=== PATIENT | female | born 1950 | race Caucasian/White ===

== ENCOUNTER → 2017-11-10 06:09 | Outpatient (CLI) | payer MEDICARE, OTHER, SELFPAY ==
[2017-11-10 07:31] LABS: Absolute Lymphocyte Count 2.92 X10^3/ul (0.83-4.51); Absolute Neutrophil Count 4.1 X10^3/uL (2.0-7.7); Basophil# 0.03 X10^3/uL; Basophil% 0.4 % (0-1); Eosinophil# 0.29 X10^3/uL; Eosinophils% 3.6 % (0-5); Hemoglobin 12.9 g/dl (12.0-15.0); Lymphocyte # 2.92 X10^3/ul (4.0); Lymphocyte % 36.4 % (19-41); Mean Corp Hgb Conc 31.5 g/gl (32-36); Mean Corpuscular Hgb 27.4 pg (27.0-32.0); Mean Platelet Vol. 10.6 fl (6.2-12.0); Monocyte% 8.7 % (0-10); Neutrophil # 4.06 X10^3/uL (2.7-7.7); Neutrophil % 50.7 % (47-70); Platelet Count 236 K/mm3 (150-450); RBC Distribution Width CV 13.5 % (11.6-14.6); RBC Distribution Width SD 42.8 fl (35.1-43.9); Red Blood Count 4.71 M/mm3 (4.2-5.4)
[2017-11-10 07:40] LABS: POSITIVE COUNT NO; POSITIVE DIFFERENTIAL NO; POSITIVE MORPHOLOGY NO
[2017-11-10 08:02] LABS: Anion Gap 9 (5-15); BUN 16 mg/dL (7-18); BUN/Creat Ratio 21.4 RATIO (10-20); Calcium,Total 8.6 mg/dL (8.5-10.1); Chloride 104 mmol/L (98-107); Cholesterol 178 mg/dL (200); Creatinine, Serum 0.75 mg/dL (0.55-1.02); EST Glomerular Filtration Rate 82 mL/min (>60); Est Glom Filt Rate - Afr Amer 99 mL/min (>60); Ferritin 13 ng/mL (8-252); Glucose 131 mg/dL (74-106); High Density Lipoprotein 38 mg/dL; Iron 44 ug/dL (50-170); Iron Binding Capacity,Total 416 ug/dL (250-450); Sodium Level 139 mmol/L (136-145); Triglycerides 257 mg/dL; Very Low Density Lipoprotein 51 mg/dL (5-40)
[2017-11-10 08:06] LABS: Hemoglobin A1c 7.1 % (4.2-6.3)
[2017-11-11 09:48] LABS: Vitamin B12 458 pg/mL (211-911); Vitamin D,25 Hydroxy 16.8 ng/mL (29.95-100.01)
== END ==
PROVIDERS: Family Provider Internal Medicine; PCP Internal Medicine; Visit Provider Internal Medicine
DX: I10 Essential (primary) hypertension (principal); E61.1 Iron deficiency; E11.9 Type 2 diabetes mellitus without complications; K90.9 Intestinal malabsorption, unspecified
CPT/HCPCS: 36415; 80048; 80061; 82306; 82607; 82728; 83036; 83540; 83550; 85025

== ENCOUNTER 2018-01-23 10:02 | Emergency (ER) | payer MEDICARE, OTHER, SELFPAY ==
[2018-01-23 10:04] VITALS: BP 144/81; PULSE 80; RESP 20; TEMP 36.3; O2SAT 100; BMI 28.0
--- NOTE | 2018-01-23 10:23 | RAD_ITS ---
STUDY: X-RAY - LEFT FOOT CLINICAL: Female, 67 years old. Foot pain TECHNIQUE: 3 view(s) of the foot. COMPARISON: None. FINDINGS: Degenerative changes in the tarsometatarsal joints. Fifth metatarsal base is within normal limits. No evidence for metatarsal fracture. Plantar spurring. IMPRESSION: No definite evidence for acute fracture seen. Electronically Signed: Jose Enrique Porras, at 10:41 EDT Tel , Service support , RAD/Foot min 3 Views
--- NOTE | 2018-01-23 10:58 | ED.DCSUM_ITS ---
- ER Visit Summary Date of Service: 01/23/18 Chief Complaint: [Injury left foot] History of Present Illness: The patient is a 67 F [presents the emergency department with injury to her left foot after sustaining a fall about 15 minutes ago. Patient states that she tripped over her vacuum. Patient unable to bear weight. Patient also hit her right knee which is been replaced but has been able to put weight on it and thinks she just bruised it. Patient denies any neck pain or chest pain. Patient denies striking her head or loss of consciousness. Physical Examination: [HEENT-PERRLA, EOMI. Cranial nerves II through XII grossly intact. TMs clear. Mucous membranes moist. No adenopathy. Cardiovascular-regular rate and rhythm without murmur or ectopy Lungs-clear to auscultation, chest wall stable without crepitus or subcu emphysema Abdomen-normoactive bowel sounds, soft, nontender, no rebound or rigidity, no peritoneal signs. Extremities-intact ?4, normal range of motion, normal pulses, atraumatic]. Right knee-mild faint erythema over the area of the patella however there is no bony tenderness on exam and she has normal range of motion that is painless. Left foot-patient has tenderness to the dorsal lateral aspect of the foot. There is no ecchymosis or bruising noted. No significant swelling noted. Patient has no pain about the left ankle. Test Results: [X-rays of the left foot obtained showed no fractures] Emergency Department Course and Treatment: [Patient was given crutches, Ze wrap ] Treatment Plan: [Patient instructed to ice and elevate the left extremity. Patient was given a prescription for [place] for pain] Disposition: [Discharged home in stable condition]. Patient advised to follow- up with her primary care physician in 5-7 days. Impression: [Mechanical fall Left foot sprain] This note was generated with [employer] dictation software. It may contain incorrect words, spelling, and punctuation that were not noted in review of the chart prior to signing ED Disposition - Plan for ED Patient: Chief Complaint: Lower Extremity Injury Referrals: Isidro Hester MD [Primary Care Provider] -
--- NOTE | 2018-01-23 10:58 | ED.DEP ---
ED Disposition - Plan for ED Patient: Chief Complaint: Lower Extremity Injury Instructions: ED Sprain Foot Prescriptions: Hydrocodone Bitart/Apap 5-325 [[place] 5MG-325MG] 1 tab PO Q6H PRN PRN 3 Days #10 tab PRN Reason: Pain Referrals: Isidro Hester MD [Primary Care Provider] - 5-7 Days
== END 2018-01-23 11:27 | disposition home or self-care (01) ==
LOC: ED 10:55
PROVIDERS: Emergency Provider Emergency Medicine; Family Provider Internal Medicine; PCP Internal Medicine
DX: S93.602A Unspecified sprain of left foot, initial encounter (principal); S80.01XA Contusion of right knee, initial encounter; W01.0XXA Fall on same level from slipping, tripping and stumbling without subsequent striking against object, initial encounter; Y93.9 Activity, unspecified; Y92.9 Unspecified place or not applicable; E11.9 Type 2 diabetes mellitus without complications; I10 Essential (primary) hypertension; E78.00 Pure hypercholesterolemia, unspecified; Z96.651 Presence of right artificial knee joint; Z90.89 Acquired absence of other organs; Z90.49 Acquired absence of other specified parts of digestive tract; Z79.84 Long term (current) use of oral hypoglycemic drugs; Z79.899 Other long term (current) drug therapy
CPT/HCPCS: 73630; 99283

== ENCOUNTER → 2018-07-23 06:08 | Outpatient (CLI) | payer MEDICARE, OTHER, SELFPAY ==
[2018-07-23 07:43] LABS: Absolute Lymphocyte Count 2.64 X10^3/ul (0.83-4.51); Absolute Neutrophil Count 3.6 X10^3/uL (2.0-7.7); Basophil# 0.03 X10^3/uL; Basophil% 0.4 % (0-1); Eosinophil# 0.22 X10^3/uL; Eosinophils% 3.1 % (0-5); Hematocrit 39.1 % (37-47); Hemoglobin 12.4 g/dl (12.0-15.0); Lymphocyte # 2.64 X10^3/ul (4.0); Lymphocyte % 37.4 % (19-41); Mean Corp Hgb Conc 31.7 g/gl (32-36); Mean Corpuscular Hgb 27.7 pg (27.0-32.0); Mean Corpuscular Volume 87.3 fL (81-99); Mean Platelet Vol. 10.2 fl (6.2-12.0); Monocyte# 0.51 X10^3/uL; Monocyte% 7.2 % (0-10); Neutrophil # 3.64 X10^3/uL (2.7-7.7); Neutrophil % 51.8 % (47-70); POSITIVE COUNT NO; POSITIVE DIFFERENTIAL NO; POSITIVE MORPHOLOGY NO; Platelet Count 293 K/mm3 (150-450); RBC Distribution Width CV 13.6 % (11.6-14.6); RBC Distribution Width SD 42.3 fl (35.1-43.9); Red Blood Count 4.48 M/mm3 (4.2-5.4); White Blood Count 7.1 K/mm3 (4.4-11.0)
[2018-07-23 08:02] LABS: ALB/GLOB Ratio 0.9 RATIO (0.9-2.4); AST(SGOT) 21 U/L (15-37); Alanine Aminotransfer ALT/SGPT 29 U/L (13-56); Albumin, Serum 3.6 g/dL (3.2-5.0); Alkaline Phosphatase 89 U/L (45-117); Anion Gap 10 (5-15); BUN 13 mg/dL (7-18); BUN/Creat Ratio 17.4 RATIO (10-20); Calcium,Total 8.5 mg/dL (8.5-10.1); Chloride 108 mmol/L (98-107); Cholesterol 137 mg/dL (200); Creatinine, Serum 0.75 mg/dL (0.55-1.02); EST Glomerular Filtration Rate 82 mL/min (>60); Est Glom Filt Rate - Afr Amer 99 mL/min (>60); Globulin 3.8 g/dL (2.2-4.2); Glucose 117 mg/dL (74-106); High Density Lipoprotein 38 mg/dL; Potassium 3.8 mmol/L (3.5-5.1); Protein, Total 7.4 g/dL (6.4-8.2); Sodium Level 142 mmol/L (136-145); Triglycerides 204 mg/dL; Very Low Density Lipoprotein 41 mg/dL (5-40)
[2018-07-23 08:08] LABS: Microalbumin,Random Urine 18.4 mg/L (NO RANGE EST.); Microalbumin:Creatinine Ratio 13.2 mg/g CRE (<30 mg/g CRE)
[2018-07-23 08:22] LABS: Hemoglobin A1c 7.6 % (4.2-6.3)
== END ==
PROVIDERS: Family Provider Internal Medicine; PCP Internal Medicine; Referring Provider Internal Medicine; Visit Provider Internal Medicine
DX: I10 Essential (primary) hypertension (principal); E11.9 Type 2 diabetes mellitus without complications; E78.5 Hyperlipidemia, unspecified
CPT/HCPCS: 36415; 80053; 80061; 82043; 82570; 83036; 85025

== ENCOUNTER → 2018-10-21 08:10 | Outpatient (CLI) | payer MEDICARE, OTHER, SELFPAY ==
[2018-07-28 15:55] VITALS: BMI 29.0
--- NOTE | 2018-10-21 08:25 | BD_ITS ---
STUDY: DUAL ENERGY X-RAY ABSORPTIOMETRY / DXA REASON FOR EXAM: Female, 68 years old. The patient is postmenopausal. Loss of height. TECHNIQUE: Bone Mineral Density (BMD) measurements of lumbar spine and bilateral hips were obtained. COMPARISON: Comparison is made with prior study dated March 06, 2015. FINDINGS: Lumbar Spine (L1-L4): g/cm2 (1.151) / T-score (-0.4) / Z-score (1.3) Findings are suggestive of normal bone density with a low fracture risk. Left Femur Total: g/cm2 (1.081) / T-score (0.6) / Z-score (2.0) Left Femoral Neck: g/cm2 (0.950) / T-score (-0.6) / Z-score (1.0) Right Femur Total: g/cm2 (1.013) / T-score (0.0) / Z-score (1.5) Right Femoral Neck: g/cm2 (0.932) / T-score (-0.8) / Z-score (0.9) The T-Scores on the most recent prior examination were: Lumbar Spine (L1-L4): There has been worsening of bone density since the previous examination. Left Femur Total: which represents a worsening of 4.6%. Right Femur Total: which represents a worsening of 5.1%. BD/Dexa Bone Density Study IMPRESSION: The patient is considered normal as outlined below according to World Ruben Organization (WHO) criteria with a low fracture risk. There has been worsening of bone density since the previous examination. Reference Information: The T-score is the number of standard deviations above or below the standard which is normal for young adults at their peak bone mineral density. The World Health Organization (WHO) interprets the T-scores as follows: Above -1 Normal bone density Between -1 and -2.5 Osteopenia Equal to / or below -2.5 Osteoporosis As a practical clinical guideline, osteopenia may be graded as follows: Mild -1 through -1.5 Moderate -1.6 through -2.0 Severe -2.1 through -2.4 The Z-score is the number of standard deviations above or below age-matched controls. A Z-score of less than -1.5 would be considered abnormal. References: 1. NIH Osteoporosis and Related Bone Diseases http://www.osteo.org 2. International Society for Clinical Densitometry http://www.iscd.org 3. National Osteoporosis Foundation http://www.nof.org Electronically Signed: Joe Trevino MD at 8:46 EST , Service support ,
== END ==
PROVIDERS: Family Provider Internal Medicine; PCP Internal Medicine; Visit Provider Internal Medicine
DX: Z78.0 Asymptomatic menopausal state (principal)
CPT/HCPCS: 77080

== ENCOUNTER → 2018-12-31 | Outpatient (CLI) | payer MEDICARE, OTHER, SELFPAY ==
[2018-07-28 15:55] VITALS: BMI 29.0
[2018-12-31 09:21] LABS: Hemoglobin A1c 7.5 % (4.2-6.3)
[2018-12-31 09:35] LABS: Vitamin D,25 Hydroxy 28.3 ng/mL (29.95-100.01)
== END | disposition home or self-care (01) ==
LOC: LAB 07:26
PROVIDERS: Family Provider Internal Medicine; PCP Internal Medicine; Referring Provider Internal Medicine; Visit Provider Internal Medicine
DX: K91.2 Postsurgical malabsorption, not elsewhere classified (principal); E11.9 Type 2 diabetes mellitus without complications; Z90.3 Acquired absence of stomach [part of]
CPT/HCPCS: 36415; 82306; 83036

== ENCOUNTER → 2019-01-04 | Outpatient (CLI) | payer MEDICARE, SELFPAY ==
[2019-01-04 08:56] VITALS: BMI 29.0
[2019-01-04 13:09] LABS: Anion Gap 6 (5-15); BUN 18 mg/dL (7-18); BUN/Creat Ratio 21.3 RATIO (10-20); Calcium,Total 9.2 mg/dL (8.5-10.1); Chloride 107 mmol/L (98-107); Creatinine, Serum 0.84 mg/dL (0.55-1.02); EST Glomerular Filtration Rate 71 mL/min (>60); Est Glom Filt Rate - Afr Amer 86 mL/min (>60); Glucose 126 mg/dL (74-106); Potassium 3.7 mmol/L (3.5-5.1); Sodium Level 137 mmol/L (136-145)
== END | disposition home or self-care (01) ==
PROVIDERS: Family Provider Internal Medicine; PCP Internal Medicine; Visit Provider Internal Medicine
DX: I10 Essential (primary) hypertension (principal)
CPT/HCPCS: 36415; 80048

== ENCOUNTER → 2019-03-08 | Outpatient (CLI) | payer MEDICARE, OTHER, SELFPAY ==
[2019-03-08 11:08] VITALS: BMI 29.0
--- NOTE | 2019-03-08 11:30 | BRBX_PTH ---
PATIENT: KARYN GUSMAN LOC: [facility] U#:[id number] AGE/SX: 69/F ROOM: RE03/08/[address]: Dr. John Adrian MD : 1950 BED: DIS: 03/08/2019 SPEC #: [id number] RECD: 03/08/19 15:06 STATUS: LOBO YEN #: [id number] HEMANTH: 03/08/19 11:[address]: John Adrian DEPT: SURGICAL PATHOLOGY RECD BY: Cameron Mendoza ENTERED: 03/09/19 14:27 SP TYPE: BREAST BX OTHR DR: Dr. Isidro Hester MD Tissues: Left breast, NOS Procedures: Surgery Specimen Level IV HEADER OPERATION: Left breast biopsy PRE-OP DIAGNOSIS: Abnormal left breast ultrasound TISSUE SUBMITTED: Left breast tissue MICROSCOPIC DIAGNOSIS Left breast, core biopsy: Fragments of benign breast tissue with extensive fibrosis, fat necrosis, chronic inflammation and dystrophic calcifications. Negative for atypia or malignancy. DEONDRE:liyah 03/10/19 COMMENT Please make reference to previous specimen ([id number] and [id number]) left breast, upper outer quadrant density with diagnosis of well differentiated invasive ductal carcinoma and left breast lumpectomy with diagnosis of invasive moderately differentiated ductal carcinoma. MICROSCOPIC DESCRIPTION Slides are reviewed. GROSS DESCRIPTION Received in fixative is one container labeled with the patient's name and designated left breast. The specimen consists of multiple elongated fragments of avila-yellow fibroadipose tissue that in aggregate measure 2.5 x 0.5 x 0.1 cm. The entire specimen is submitted in one cassette. / Olga Lidia 03/09/19 TC:5 CPT: 00376
== END | disposition home or self-care (01) ==
LOC: LABSPEC 15:10
PROVIDERS: Family Provider Internal Medicine; PCP Internal Medicine; Referring Provider Surgery; Visit Provider Surgery
DX: N60.32 Fibrosclerosis of left breast (principal); N64.1 Fat necrosis of breast
CPT/HCPCS: 88305

== ENCOUNTER → 2019-03-17 | Outpatient (CLI) | payer MEDICARE, OTHER, SELFPAY ==
--- NOTE | 2019-03-08 03:00 | HP_ITS ---
Intake Vital Signs 03/08/19 Body Mass Index (BMI) 29.0 03/08/19 Height 5 ft 2 in 03/08/19 Weight: 167 lb 03/08/19 Body Mass Index (BMI) 30.5 03/08/19 Blood Pressure 138/83 H 03/08/19 Blood Pressure Location Rt brachial 03/08/19 Blood Pressure Position Sitting 03/08/19 Respiratory Rate 18 03/08/19 Pulse Rate 83 03/08/19 Pulse Source Monitor 03/08/19 Temperature 98.2 F 03/08/19 Temperature Source Oral 03/08/19 Pulse Ox 97 03/08/19 Oxygen Delivery Method room air Intake Visit Reasons: Birads 4 Lt Breast/Rt Breast Lesion Chief Complaint: 3 month follow-up Save All Operator Required: No Is patient in pain?: No Allergies prochlorperazine [From Compazine] Allergy (Verified 03/08/19 11:07) Other Medications Ferrous Sulfate 325 mg PO DAILY@0800 #30 tab 04/10/16 [Rx Confirmed 03/08/19] anastrozole 1 mg tablet 1 mg PO QDAY 11/09/17 [History Confirmed 03/08/19] hydrochlorothiazide 12.5 mg capsule 12.5 mg PO DAILY #90 cap 12/15/17 [Rx Confirmed 03/08/19] ramipril 5 mg capsule 5 mg PO BID #180 cap 12/15/17 [Rx Confirmed 03/08/19] rosuvastatin 5 mg tablet 5 mg PO QDAY #60 tab 12/15/17 [Rx Confirmed 03/08/19] escitalopram 5 mg tablet 5 mg PO QDAY #60 tab 04/12/18 [Rx Confirmed 03/08/19] cyanocobalamin (vit B-12) 1,000 mcg/mL injection kit 1,000 mcg IM Q2W #2 ea 07/28/18 [Rx Confirmed 03/08/19] metformin 1,000 mg tablet 1,000 mg PO BID #180 tab 07/28/18 [Rx Confirmed 03/08/19] cholecalciferol (vitamin D3) 50,000 unit capsule See Rx Instructions .ROUTE .COMPLEX #12 capsule 02/15/19 [Rx Confirmed 03/08/19] FOR[facility] Medical History (Updated 03/08/19 @ 14:56 by John Adrian MD) Left breast mass (Acute) Abnormal mammogram of right breast (Acute) Anemia (Chronic) Breast cancer (Chronic) HTN (hypertension) (Chronic) Diabetes (Chronic) High cholesterol (Chronic) Surgical History (Updated 03/08/19 @ 11:06 by Charmaine Ordaz) History Panniculectomy (Acute) History of left cataract surgery (Acute) History of partial mastectomy of left breast (Acute) H/O tubal ligation (Acute) History of breast reconstruction (Acute) History of cholecystectomy (Acute) History of gastric bypass (Acute) history of stomach surgery (Acute) Family History Mother Cancer Pancreatic cancer Diabetes Depression Sister Cancer Lung cancer Father Colon cancer Heart disease Myocardial infarction Hypertension CVA (cerebral vascular accident) Sister Cancer Kidney cancer Thyroid disorder Other Anxiety Social History (Updated 03/08/19 @ 15:00 by John Adrian MD) Smoking Status: Never smoker second hand exposure: No alcohol intake: never what type of physical activity do you participate in: none HPI HPI HPI: KARYN GUSMAN, is a 69 F who presents to the office today for HPI HPI Surgical H&P: Yes HPI: KARYN GUSMAN, is a 69 F who presents to the office today for surgical consultation regarding a previous history of left breast cancer with a tender left breast and tenderness in the lower outer right breast and microcalcifications in the lower inner right breast at 4 o'clock position and a nondescript oval density lower outer right breast 8 o'clock position and abnormal mammographic and ultrasonic imaging of the left breast suspected to be possible post lumpectomy or post reconstruction scarring. 69-year-old female. A0. Menarche at age 17. First child born when she was 21. She did breast-feed. She was not on estrogen replacement. There is no family history of breast cancer. The patient however has a personal history of breast cancer upper outer left breast for which on August 06, 2011 I performed a stereotactic wire localized partial mastectomy with left axillary isosulfan blue dye sentinel lymph node biopsy. 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 August 07, 2016 because of suspected right breast issue posterior medially and laterally I did ultrasound-guided biopsies with final results consistent with 5 fragments of fibroadipose tissue fat necrosis and chronic inflammation. It is of note that that was subsequent to a patient's bilateral reconstruction performed with TRAM flaps. She has had some chronic long-term right upper quadrant pain. February 04, 2019 her right upper quadrant ultrasound was performed which demonstrated fatty liver no acute problems. On February 25, 2019 also at the [facility] a [facility] scan was obtained of the abdomen which also did not show metastatic disease or any acute disease process. The patient has been able to detect some tenderness in the 6 o'clock position right breast. Chanda Ocasio CNP and Dr. Brit Pak provide her oncology care. The patient subsequently had bilateral mammography and bilateral breast ultrasonography on February 15, 2019. Within the right breast at the 4 o'clock position middle depth there are microcalcifications of indeterminate suspicion BI-RADS Category 4 biopsy recommended. There is no mammographic area of the right breast to correspond with the patient's detected of palpable fullness. There was asymmetry of the left breast noted on my mammogram. Ultrasound performed suggested that there is an oval lesion right breast 8 o'clock position middle depth felt to be probably benign with follow-up films at 6 months recommended. This appears to be rather vague on my ultrasound review. Regarding the left breast on ultrasound there is an irregular area in the lower outer aspect of mixed echogenicity. This is felt like to be scar. On my review of the patient's left mammogram and ultrasound there are marking clips in place marking her previous lumpectomy site. This appears to be contracted. There is a whirling of tissue more medially in the left breast and on my review this seems to be correlating more with the patient's reconstruction which she had in 2016. Patient has asked that I continue to assist her with her surgical care and she is referred by to assist. A written copy of my surgical consult will be returned to him ROS General General: Yes fatigue and breast cancer; no weight change, appetite, colon cancer or weakness HEENT HEENT: Yes eye surgery; no difficulty swallowing, eye injury, swollen glands or hoarseness Endo Endocrine: Yes diabetes mellitus; no thyroid disease, thyroid cancer, Hair loss, heat intolerance or cold intolerance Skin Skin: No rash or changing moles Breast Breast: Yes right breast lump, abnormal mammogram and abnormal US; no left breast lump, nipple discharge, breast pain or breast enlargement Musc Musculoskeletal: No back problems, arthritis, rheumatoid arthritis, gout or joint pain Cardio Cardiovascular: Yes high blood pressure; no murmur, pacemaker, heart disease, atrial fibrillation, heart attack, heart stent, palpitations, shortness of breat with exertion or chest pain Psych Psychiatric: No depression, anxiety or hearing voices Resp Respiratory: No shortness of breath, No sleep apnea, No cough, No COPD, No asthma, No emphysema, No wheezing Gastro Gastrointestinal: No abdominal pain, No nausea or vomiting, No diarrhea, No constipation, No blood in stool, No acid reflux, No hemorrhoids, No ulcers, No gallbladder problem, No black,tarry stools Eulogio Hematologic: No blood thinners, No blood disorders, No bleeding, No anemia, No blood clots Neuro Neurologic: No system reviewed and no additional complaints, except as docu, No as per HPI, No abnormal walking, No abnormal hearing, No abnormal movements, No abnormal speech, No behavioral changes, No burning sensations, No confusion, No seizure-like activity, No unsteadiness, No dizziness, No localized weakness, No frequent falls, No headache(s), No lack of coordination, No loss of vision, No memory loss, No numbness, No other visual disturbances, No radiating pain, No restless legs, No sensory deficit, No fainting, No tingling, No tremor(s), No weakness, No other Exam Const General: cooperative, healthy appearing, comfortable, no acute distress Nutritional Appearance: overweight Orientation: alert, awake, oriented x3 HENMT Head: normal to inspection Eyes Other: Left eyes superior lateral deviation Chest Breast Palpation: No nipple discharge Other: Right breast: Evidence of reconstruction incision. Rubbery fire fibrous tender to similar nodule 6 o'clock position within the incision. More descriptive diffuse fibrous density lower outer right breast consistent with residual breast tissue. No nipple discharge. No axillary or clavicular adenopathy Left breast: Large firm tender retroareolar sightly immediately placed mass. Well-healed curvilinear incision upper outer left breast. No axillary or clavicular adenopathy Resp Effort & Inspection: normal respiratory effort Auscultation: clear to auscultation bilaterally Cardio Rate: regular rate Rhythm: regular rhythm Heart Sounds: no murmurs GI Inspection: normal to inspection Palpation: soft, no hepatosplenomegaly Auscultation: normal bowel sounds Skin General: no rashes or lesions noted Neuro Cognition: normal cognition Extrem General: no calf tenderness bilaterally Psych Affect: normal affect Office Procedures Biopsy Provider Documentation Ultrasound-guided needle core biopsy firm tender left medial retroareolar breast mass Timeout and informed consent was obtained. 69-year-old female was taken to the procedure room placed on the table. The left breast was sterilely prepped draped. 1% lidocaine mixed 50-50 with 0.5% Marcaine was used as local anesthetic. A total of 10 cc was used.. A small stab incision was created. A 14-gauge Monopty needle was utilized. 6 different cores and separate placements were pursued. There is a large shadowing mass in this medial retroareolar area. No fluid was obtained all of this appeared solid. I suspect this area is related to the patient's reconstruction. This is not in the area of her original tumor John Adrian M.D., F.A.C.S. Alert Director Public Service Yes Biopsy Breast Biopsy: [id number] US Guidance Procedure Time Out Time Out Informed consent given: Yes Consent signed: Yes Time out checklist: patient, procedure, site marked/identified, positioning of patient, supplies available, allergies confirmed, team agrees on procedure Time out staff in room: Yes Time out verified: Yes Time out date: 03/08/19 Time out time: 11:47 Assessment & Plan Problems 1. Abnormal mammogram of right breast R92.8 2. Left breast mass N63.20 Plan Because of the tender mass involving the left medial retroareolar breast I performed an ultrasound-guided needle core biopsy of this area today. The area of palpable concern in the right breast at least today is at the 6 o'clock position. There is an area of diffuse fibrous fullness in the lower outer right breast 8 o'clock position but I believe this correlates more with her normal breast tissue and seems different from the rest of her tissue because of the paucity of tissue at 6:00. There is a rubbery nodule at the 6 o'clock position which I believe is consistent with post reconstruction scar tissue. At the 4 o'clock position right breast there are clustered microcalcifications. These appear to be slightly more coarse. I suspect that they probably are consistent with fat necrosis. This however is the area of concern to radiology with a BI-RADS Category 4 grading. We will proceed with scheduling for stereotactic needle core biopsy of this area. I appreciate the ongoing opportunity of assisting with her surgical care. I am pleased and that I have solely provided her general surgical care over the years CC: Dr. Isidro Hester and Dr Mandi Adrian M.D., F.A.C.S. Orders Orders: Biopsy Today R92.8 Coding Level of Care Code 86392 Diagnoses Abnormal mammogram of right breast R92.8 Left breast mass N63.20 Additional Codes Biopsy - Breast Biopsy: [id number] US Guidance ([id number]) 03/08/19 1501 <Electronically signed by John whalen MD> Date _ John Ardian MD I have re-examined the patient. There are no clinical changes since date of exam.
[2019-03-08 11:08] VITALS: BMI 29.0
--- NOTE | 2019-03-17 10:40 | BRBX_PTH ---
PATIENT: KARYN GUSMAN LOC: [facility] U#:[id number] AGE/SX: 69/F ROOM: RE03/17/[address]: Dr. John Adrian MD : 1950 BED: DIS: 03/17/2019 SPEC #: [id number] RECD: 03/17/19 11:42 STATUS: LOBO REMignon #: [id number] HEMANTH: 03/17/19 10:[address]: John Adrian DEPT: SURGICAL PATHOLOGY RECD BY: Cameron Mendoza ENTERED: 03/17/19 12:33 SP TYPE: BREAST BX BRIAN DR: Dr. Isidro Hester MD Tissues: Right breast, NOS Procedures: Surgery Specimen Level IV HEADER OPERATION: Right stereotactic breast biopsy PRE-OP DIAGNOSIS: Right breast 4 o'clock position microcalcifications TISSUE SUBMITTED: Right breast core tissue ISCHEMIC TIME: 1 minute FIXATION TIME: 9 hours MICROSCOPIC DIAGNOSIS Right breast, 4 o'clock position microcalcifications, stereotactic core biopsy: Fragments of fibroadipose tissue with fibrosis, fat necrosis, chronic inflammation and dystrophic calcification. Negative for atypia or malignancy. See comment. DEONDRE:liyah 03/18/19 COMMENT Breast tissue is not identified. Please make reference to previous specimen ([id number]) left breast, upper outer quadrant density, stereotactic needle core biopsy with diagnosis of well differentiated invasive ductal carcinoma and ([id number]) left breast, lumpectomy with diagnosis of invasive moderately differentiated ductal carcinoma and ([id number]) right breast scar, lateral and medial, ultrasound-guided core biopsy with diagnosis of fragments of fibroadipose tissue with fat necrosis and chronic inflammation and ([id number]) left breast, core biopsy with diagnosis of fragments of benign breast tissue with extensive fibrosis, fat necrosis, chronic inflammation and negative for atypia or malignancy. MICROSCOPIC DESCRIPTION Slides are reviewed. GROSS DESCRIPTION Received is one container labeled with the patient's name and not further designated. The specimen consists of multiple elongated fragments of avila-yellow fibroadipose tissue that in aggregate measure 3 x 2.5 x 0.3 cm. The entire specimen is submitted in one cassette. / DEONDRE:liyah 03/17/19 TC:5 CPT: 45752
--- NOTE | 2019-03-17 10:40 | HP.PCM_ITS ---
Problem List (1) Abnormal mammogram of right breast Status: Acute History and Physical Date of Admission: 03/17/19 Intake Vital Signs 03/08/19 Body Mass Index (BMI) 29.0 03/08/19 Height 5 ft 2 in 03/08/19 Weight: 167 lb 03/08/19 Body Mass Index (BMI) 30.5 03/08/19 Blood Pressure 138/83 H 03/08/19 Blood Pressure Location Rt brachial 03/08/19 Blood Pressure Position Sitting 03/08/19 Respiratory Rate 18 03/08/19 Pulse Rate 83 03/08/19 Pulse Source Monitor 03/08/19 Temperature 98.2 F 03/08/19 Temperature Source Oral 03/08/19 Pulse Ox 97 03/08/19 Oxygen Delivery Method room air Intake Visit Reasons: Birads 4 Lt Breast/Rt Breast Lesion Chief Complaint: 3 month follow-up Co Founder And Chairman Required: No Is patient in pain?: No Allergies prochlorperazine [From Compazine] Allergy (Verified 03/08/19 11:07) Other Medications Ferrous Sulfate 325 mg PO DAILY@0800 #30 tab 04/10/16 [Rx Confirmed 03/08/19] anastrozole 1 mg tablet 1 mg PO QDAY 11/09/17 [History Confirmed 03/08/19] hydrochlorothiazide 12.5 mg capsule 12.5 mg PO DAILY #90 cap 12/15/17 [Rx Confirmed 03/08/19] ramipril 5 mg capsule 5 mg PO BID #180 cap 12/15/17 [Rx Confirmed 03/08/19] rosuvastatin 5 mg tablet 5 mg PO QDAY #60 tab 12/15/17 [Rx Confirmed 03/08/19] escitalopram 5 mg tablet 5 mg PO QDAY #60 tab 04/12/18 [Rx Confirmed 03/08/19] cyanocobalamin (vit B-12) 1,000 mcg/mL injection kit 1,000 mcg IM Q2W #2 ea 07/28/18 [Rx Confirmed 03/08/19] metformin 1,000 mg tablet 1,000 mg PO BID #180 tab 07/28/18 [Rx Confirmed 03/08/19] cholecalciferol (vitamin D3) 50,000 unit capsule See Rx Instructions .ROUTE .COMPLEX #12 capsule 02/15/19 [Rx Confirmed 03/08/19] [facility] Medical History (Updated 03/08/19 @ 14:56 by John Adrian MD) Left breast mass (Acute) Abnormal mammogram of right breast (Acute) Anemia (Chronic) Breast cancer (Chronic) HTN (hypertension) (Chronic) Diabetes (Chronic) High cholesterol (Chronic) Surgical History (Updated 03/08/19 @ 11:06 by Charmaine Ordaz) History Panniculectomy (Acute) History of left cataract surgery (Acute) History of partial mastectomy of left breast (Acute) H/O tubal ligation (Acute) History of breast reconstruction (Acute) History of cholecystectomy (Acute) History of gastric bypass (Acute) history of stomach surgery (Acute) Family History Mother Cancer Pancreatic cancer Diabetes Depression Sister Cancer Lung cancer Father Colon cancer Heart disease Myocardial infarction Hypertension CVA (cerebral vascular accident) Sister Cancer Kidney cancer Thyroid disorder Other Anxiety Social History (Updated 03/08/19 @ 15:00 by John Adrian MD) Smoking Status: Never smoker second hand exposure: No alcohol intake: never what type of physical activity do you participate in: none HPI HPI HPI: KARYN GUSMAN, is a 69 F who presents to the office today for HPI HPI Surgical H&P: Yes HPI: KARYN GUSMAN, is a 69 F who presents to the office today for surgical consultation regarding a previous history of left breast cancer with a tender left breast and tenderness in the lower outer right breast and microcalcific ations in the lower inner right breast at 4 o'clock position and a nondescript oval density lower outer right breast 8 o'clock position and abnormal mammographic and ultrasonic imaging of the left breast suspected to be possible post lumpectomy or post reconstruction scarring. 69-year-old female. A0. Menarche at age 17. First child born when she was 21. She did breast-feed. She was not on estrogen replacement. There is no family history of breast cancer. The patient however has a personal history of breast cancer upper outer left breast for which on August 06, 2011 I performed a stereotactic wire localized partial mastectomy with left axillary isosulfan blue dye sentinel lymph node biopsy. 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 August 07, 2016 because of suspected right breast issue posterior medially and laterally I did ultrasound-guided biopsies with final results consistent with 5 fragments of fibroadipose tissue fat necrosis and chronic inflammation. It is of note that that was subsequent to a patient's bilateral reconstruction performed with TRAM flaps. She has had some chronic long-term right upper quadrant pain. February 04, 2019 her right upper quadrant ultrasound was performed which demonstrated fatty liver no acute problems. On February 25, 2019 also at the [facility] a CT scan was obtained of the abdomen which also did not show metastatic disease or any acute disease process. The patient has been able to detect some tenderness in the 6 o'clock position right breast. Chanda Ocasio CNP and Dr. Brit Pak provide her oncology care. The patient subsequently had bilateral mammography and bilateral breast ultrasonography on February 15, 2019. Within the right breast at the 4 o'clock position middle depth there are microcalcifications of indeterminate suspicion BI-RADS Category 4 biopsy recommended. There is no mammographic area of the right breast to correspond with the patient's detected of palpable fullness. Th ere was asymmetry of the left breast noted on my mammogram. Ultrasound performed suggested that there is an oval lesion right breast 8 o'clock position middle depth felt to be probably benign with follow-up films at 6 months recommended. This appears to be rather vague on my ultrasound review. Regarding the left breast on ultrasound there is an irregular area in the lower outer aspect of mixed echogenicity. This is felt like to be scar. On my review of the patient's left mammogram and ultrasound there are marking clips in place marking her previous lumpectomy site. This appears to be con tracted. There is a whirling of tissue more medially in the left breast and on my review this seems to be correlating more with the patient's reconstruction which she had in 2016. Patient has asked that I continue to assist her with her surgical care and she is referred by to assist. A written copy of my surgical consult will be returned to him ROS General General: Yes fatigue and breast cancer; no weight change, appetite, colon cancer or weakness HEENT HEENT: Yes eye surgery; no difficulty swallowing, eye injury, swollen glands or hoarseness Endo Endocrine: Yes diabetes mellitus; no thyroid disease, thyroid cancer, Hair loss, heat intolerance or cold intolerance Skin Skin: No rash or changing moles Breast Breast: Yes right breast lump, abnormal mammogram and abnormal US; no left breast lump, nipple discharge, breast pain or breast enlargement Musc Musculoskeletal: No back problems, arthritis, rheumatoid arthritis, gout or joint pain Cardio Cardiovascular: Yes high blood pressure; no murmur, pacemaker, heart disease, atrial fibrillation, heart attack, heart stent, palpitations, shortness of breat with exertion or chest pain Psych Psychiatric: No depression, anxiety or hearing voices Resp Respiratory: No shortness of breath, No sleep apnea, No cough, No COPD, No asthma, No emphysema, No wheezing Gastro Gastrointestinal: No abdominal pain, No nausea or vomiting, No diarrhea, No constipation, No blood in stool, No acid reflux, No hemorrhoids, No ulcers, No gallbladder problem, No black,tarry stools Eulogio Hematologic: No blood thinners, No blood disorders, No bleeding, No anemia, No blood clots Neuro Neurologic: No system reviewed and no additional complaints, except as docu, No as per HPI, No abnormal walking, No abnormal hearing, No abnormal movements, No abnormal speech, No behavioral changes, No burning sensations, No confusion, No seizure-like activity, No unsteadiness, No dizziness, No localized weakness, No frequent falls, No headache(s), No lack of coordination, No loss of vision, No memory loss, No numbness, No other visual disturbances, No radiating pain, No restless legs, No sensory deficit, No fainting, No tingling, No tremor(s), No weakness, No other Exam Const General: cooperative, healthy appearing, comfortable, no acute distress Nutritional Appearance: overweight Orientation: alert, awake, oriented x3 HENMT Head: normal to inspection Eyes Other: Left eyes superior lateral deviation Chest Breast Palpation: No nipple discharge Other: Right breast: Evidence of reconstruction incision. Rubbery fire fibrous tender to similar nodule 6 o'clock position within the incision. More descriptive diffuse fibrous density lower outer right breast consistent with residual breast tissue. No nipple discharge. No axillary or clavicular adenopathy Left breast: Large firm tender retroareolar sightly immediately placed mass. Well-healed curvilinear incision upper outer left breast. No axillary or clavicular adenopathy Resp Effort & Inspection: normal respiratory effort Auscultation: clear to auscultation bilaterally Cardio Rate: regular rate Rhythm: regular rhythm Heart Sounds: no murmurs GI Inspection: normal to inspection Palpation: soft, no hepatosplenomegaly Auscultation: normal bowel sounds Skin General: no rashes or lesions noted Neuro Cognition: normal cognition Extrem General: no calf tenderness bilaterally Psych Affect: normal affect Office Procedures Biopsy Provider Documentation Ultrasound-guided needle core biopsy firm tender left medial retroareolar breast mass Timeout and informed consent was obtained. 69-year-old female was taken to the procedure room placed on the table. The left breast was sterilely prepped draped. 1% lidocaine mixed 50-50 with 0.5% Marcaine was used as local anesthetic. A total of 10 cc was used.. A small stab incision was created. A 14-gauge Monopty needle was utilized. 6 different cores and separate placements were pursued. There is a large shadowing mass in this medial retroareolar area. No fluid was obtained all of this appeared solid. I suspect this area is related to the patient's reconstruction. This is not in the area of her original tumor John Adrian M.D., F.A.C.S. Alert Drivers' Cash Clerk Yes Biopsy Breast Biopsy: [id number] US Guidance Procedure Time Out Time Out Informed consent given: Yes Consent signed: Yes Time out checklist: patient, procedure, site marked/identified, positioning of patient, supplies available, allergies confirmed, team agrees on procedure Time out staff in room: Yes Time out verified: Yes Time out date: 03/08/19 Time out time: 11:47 Assessment & Plan Problems 1. Abnormal mammogram of right breast R92.8 2. Left breast mass N63.20 Plan Because of the tender mass involving the left medial retroareolar breast I performed an ultrasound-guided needle core biopsy of this area today. The area of palpable concern in the right breast at least today is at the 6 o'clock position. There is an area of diffuse fibrous fullness in the lower outer right breast 8 o'clock position but I believe this correlates more with her normal breast tissue and seems different from the rest of her tissue because of the paucity of tissue at 6:00. There is a rubbery nodule at the 6 o'clock position which I believe is consistent with post reconstruction scar tissue. At the 4 o'clock position right breast there are clustered microcalcifications. These appear to be slightly more coarse. I suspect that they probably are consistent with fat necrosis. This however is the area of concern to radiology with a BI-RADS Category 4 grading. We will proceed with scheduling for stereotactic needle core biopsy of this area. I appreciate the ongoing opportunity of assisting with her surgical care. I am pleased and that I have solely provided her general surgical care over the years CC: Dr. Isidro Hester and Dr Mandi Adrian M.D., F.A.C.S. Orders Orders: Biopsy Today R92.8 Coding Level of Care Code 65761 Diagnoses Abnormal mammogram of right breast R92.8 Left breast mass N63.20 Additional Codes Biopsy - Breast Biopsy: [id number] US Guidance ([id number]) 03/08/19 1501 <Electronically signed by John whalen MD> Date _ John Adrian MD I have re-examined the patient. There are no clinical changes since date of exam.
--- NOTE | 2019-03-17 11:07 | PCM.OPRPT ---
Problem List (1) Abnormal mammogram of right breast Status: Acute Report of Operation Date of Procedure: 03/17/19 Pre-Operative Diagnosis: Clustered microcalcifications medial right breast Post-Operative Diagnosis: Same Surgery/Procedure Performed:: Stereotactic needle core biopsy medial right breast Description of Surgical Findings:: Timeout and informed consent was obtained. 69-year-old female taken to the stereotactic room placed on the table right breast was placed in the medial lateral view. The microcalcifications in question quite cords were readily identified. Stereotactic images were obtained. Target on drawstring knotter was selected replacing image 2. Additional information is obtained on a single target site. The breast was prepped with Betadine. 1% lidocaine was used as a local anesthetic. A total of 10 cc was used. A small stab incision was created. A gauge resolved needle was advanced to prefire depth. Prefire films were obtained demonstrating adequate localization for. The device was fired. 6 cores were obtained. Specimen mammograms had for over the course clearly with mild complications present. A mini marking clip was inserted. I felt that had had deployed and I released the patient only to determine that what I was looking at was additional calcifications at the marking clip actually had not deployed. There were significant number of residual calcifications however to andrea the area. I elected not to pursue replacing her. Pressure was held for hemostasis. Steri-Strip Telfa OpSite dressings applied. She was given activity wound care instructions. She is scheduled to return to see me next week for further follow-up. The specimens were immediately placed in formalin for analysis. The patient has some additional calcifications located in the right breast. This area had an area of some small fine calcifications with larger coarser calcifications. The larger coarser calcifications still marked this area of concern. John Adrian M.D., F.A.C.S. Type of Anesthesia:: Local
== END | disposition home or self-care (01) ==
LOC: BIRAD 10:21
PROVIDERS: Family Provider Internal Medicine; PCP Internal Medicine; Referring Provider Surgery; Visit Provider Surgery
DX: N60.31 Fibrosclerosis of right breast (principal); N64.1 Fat necrosis of breast; D64.9 Anemia, unspecified; I10 Essential (primary) hypertension; E11.9 Type 2 diabetes mellitus without complications; E78.00 Pure hypercholesterolemia, unspecified; Z85.3 Personal history of malignant neoplasm of breast; Z90.12 Acquired absence of left breast and nipple; Z79.84 Long term (current) use of oral hypoglycemic drugs; Z79.899 Other long term (current) drug therapy; R92.8 Other abnormal and inconclusive findings on diagnostic imaging of breast
CPT/HCPCS: 19081; 88305; J7050

== ENCOUNTER → 2019-06-20 08:59 | Outpatient (CLI) | payer MEDICARE, OTHER, SELFPAY ==
[2019-06-20 08:25] VITALS: BMI 29.0
--- NOTE | 2019-06-20 10:01 | EKG12_ITS ---
Test Reason : HTN Blood Pressure : / mmHG Vent. Rate : 067 BPM Atrial Rate : 067 BPM P-R Int : 142 ms QRS Dur : 084 ms QT Int : 426 ms P-R-T Axes : 044 042 057 degrees QTc Int : 450 ms Normal sinus rhythm with sinus arrhythmia Normal ECG Confirmed by TULIO MCCARTHY, CODI ([id number]), senior editor AIME SCRUGGS ([id number]) on 06/24/2019 11:07:03 AM Referred By: Isidro Hester Confirmed By:CODI ANTUNEZ MD
[2019-06-20 12:31] LABS: Absolute Lymphocyte Count 2.55 X10^3/uL (0.83-4.51); Absolute Neutrophil Count 4.3 X10^3/uL (2.0-7.7); Basophil# 0.05 X10^3/uL; Basophil% 0.7 % (0-1); Eosinophil# 0.23 X10^3/uL; Hemoglobin 11.8 g/dL (12.0-15.0); Lymphocyte # 2.55 X10^3/ul (4.0); Lymphocyte % 33.4 % (19-41); Mean Corp Hgb Conc 31.1 g/dL (32-36); Mean Corpuscular Hgb 26.1 pg (27.0-32.0); Mean Corpuscular Volume 84.1 fL (81-99); Mean Platelet Vol. 9.9 fl (6.2-12.0); Monocyte% 6.5 % (0-10); NRBC Flagged by Analyzer 0 % (0-5); Neutrophil # 4.27 X10^3/uL (2.7-7.7); Neutrophil % 55.9 % (47-70); Platelet Count 278 K/mm3 (150-450); RBC Distribution Width CV 13.9 % (11.6-14.6); RBC Distribution Width SD 42.4 fl (35.1-43.9); Red Blood Count 4.52 M/mm3 (4.2-5.4); White Blood Count 7.6 K/mm3 (4.4-11.0)
[2019-06-20 13:17] LABS: ALB/GLOB Ratio 1.1 RATIO (0.9-2.4); AST(SGOT) 20 U/L (15-37); Alanine Aminotransfer ALT/SGPT 31 U/L (13-56); Albumin, Serum 3.8 g/dL (3.2-5.0); Alkaline Phosphatase 101 U/L (45-117); Anion Gap 9 (5-15); BUN 15 mg/dL (7-18); BUN/Creat Ratio 17.7 RATIO (10-20); Calcium,Total 8.8 mg/dL (8.5-10.1); Chloride 107 mmol/L (98-107); Cholesterol 170 mg/dL (200); Creatinine, Serum 0.85 mg/dL (0.55-1.02); EST Glomerular Filtration Rate 71 mL/min (>60); Est Glom Filt Rate - Afr Amer 85 mL/min (>60); Globulin 3.6 g/dL (2.2-4.2); Glucose 137 mg/dL (74-106); High Density Lipoprotein 38 mg/dL; Potassium 4.2 mmol/L (3.5-5.1); Protein, Total 7.4 g/dL (6.4-8.2); Sodium Level 140 mmol/L (136-145); Triglycerides 256 mg/dL; Very Low Density Lipoprotein 51 mg/dL (5-40)
[2019-06-20 13:30] LABS: Microalbumin,Random Urine 20.3 mg/L (NO RANGE EST.); Microalbumin:Creatinine Ratio 23.5 mg/g CRE (<30 mg/g CRE)
== END ==
PROVIDERS: Family Provider Internal Medicine; PCP Internal Medicine; Referring Provider Internal Medicine; Visit Provider Internal Medicine
DX: E11.9 Type 2 diabetes mellitus without complications (principal); I10 Essential (primary) hypertension
CPT/HCPCS: 36415; 80053; 80061; 82043; 82570; 85025; 93005

== ENCOUNTER → 2019-07-22 07:47 | Outpatient (CLI) | payer MEDICARE, OTHER, SELFPAY ==
[2019-07-18 10:51] VITALS: BMI 29.0
[2019-07-22 08:26] LABS: T4 Free Direct 0.95 ng/dL (0.76-1.46); Thyroid Stim Hormone (TSH) 2.87 uIU/mL (0.358-3.74)
== END ==
PROVIDERS: Family Provider Internal Medicine; PCP Internal Medicine; Referring Provider Internal Medicine; Visit Provider Internal Medicine
DX: R00.0 Tachycardia, unspecified (principal)
CPT/HCPCS: 36415; 84439; 84443

== ENCOUNTER → 2019-10-24 10:01 | Outpatient (CLI) | payer MEDICARE, OTHER, SELFPAY ==
[2019-10-24 09:19] VITALS: BMI 29.4
[2019-10-24 12:31] LABS: Anion Gap 8 (5-15); BUN 14 mg/dL (7-18); BUN/Creat Ratio 14.2 RATIO (10-20); Calcium,Total 9.9 mg/dL (8.5-10.1); Chloride 102 mmol/L (98-107); Creatinine, Serum 0.98 mg/dL (0.55-1.02); EST Glomerular Filtration Rate 59 mL/min (>60); Est Glom Filt Rate - Afr Amer 72 mL/min (>60); Glucose 118 mg/dL (74-106); Magnesium 1.9 mg/dL (1.6-2.6); Sodium Level 136 mmol/L (136-145)
== END ==
PROVIDERS: PCP Internal Medicine; Referring Provider Internal Medicine; Visit Provider Internal Medicine
DX: E11.9 Type 2 diabetes mellitus without complications (principal); I10 Essential (primary) hypertension
CPT/HCPCS: 36415; 80048; 83735

== ENCOUNTER → 2019-11-01 08:58 | Outpatient (CLI) | payer MEDICARE, OTHER, SELFPAY ==
[2019-10-24 12:55] VITALS: BMI 29.0
== END ==
PROVIDERS: PCP Internal Medicine; Referring Provider Internal Medicine; Visit Provider Internal Medicine
DX: I49.9 Cardiac arrhythmia, unspecified (principal); R00.0 Tachycardia, unspecified
CPT/HCPCS: 93225; 93226

== ENCOUNTER 2020-02-10 02:17 | Emergency (ER) | payer MEDICARE, OTHER, SELFPAY ==
[2020-01-16 09:31] VITALS: BMI 29.0
[2020-02-10 02:18] VITALS: BP 155/83; PULSE 72; RESP 16; TEMP 36.3; O2SAT 99; BMI 31.1
--- NOTE | 2020-02-10 02:38 | ED.DCSUM_ITS ---
History of Present Illness Chief Complaint: Lower Extremity Injury Informant: Patient Narrative: Stated she woke a few hours ago with burning in her right lower extremity. She did do some patio furniture lifting today. She is unsure if that caused irritation to the nerve root in her low back. She has chronic varicose veins in her right lower extremity which do not appear worse than normal. She is noticed no swelling. She has no calf tenderness. Is not reproducible. She has had sciatica in the past but does not appear that she is having pain in her buttock. She does have a history of diabetes but has never had diabetic neuropathy. She has not noticed any warmth redness or coolness to her leg. No skin color changes. Current severity is mild. She came in to make sure she did not have a blood clot - Past Medical History (1) Abnormal mammogram of right breast Status: Acute (2) Cellulitis, abdominal wall Status: Acute (3) Left ankle sprain Status: Acute (4) Left breast mass Status: Acute (5) Anemia Status: Chronic (6) Bariatric surgery status Status: Chronic (7) Breast cancer Status: Chronic (8) Depression with anxiety Status: Chronic (9) Diabetes Status: Chronic (10) Disorder of sacroiliac joint Status: Chronic (11) HTN (hypertension) Status: Chronic (12) History of malignant neoplasm of breast Status: Chronic (13) History of sciatica Status: Chronic (14) Hypertension Status: Chronic (15) 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 (16) Osteopenia Status: Chronic (17) Type 2 diabetes mellitus Status: Chronic (18) Vitamin D deficiency Status: Chronic Past Medical History - Allergies and Home Meds Allergies/Adverse Reactions: Allergies prochlorperazine [From Compazine] Allergy (Verified 02/10/20 02:22) Other Primary Care Physician: Isidro Hester MD [Primary Care Provider] - Prior records reviewed: Yes Past Medical History: - - See problem list Surgical History: mastectomy Lives: With Family Smoking Status: Never smoker Alcohol: None Drugs: None Review of Systems General: Denies: Chills, Fever, Sweats Eyes: Denies: Visual changes - bilaterally, Diplopia ENT: Denies: Rhinorrhea, Sore throat Cardiovascular: Denies: Chest pain, Palpitations Respiratory: Denies: Dyspnea, Cough, Dyspnea on exertion Gastrointestinal: Denies: Abdominal pain, Nausea, Vomiting, Diarrhea, Melena, Hematochezia Genitourinary: Denies: Dysuria, Hematuria, Frequency Musculoskeletal: Reports: Extremity Pain. Denies: Back pain Skin: Denies: Rash, Wounds Neurological: Denies: Headache, Weakness, Numbness Physical Exam Vital Signs/Narrative: Vital Signs Temp Pulse Resp BP Pulse Ox 02/10/20 02:18 97.4 F L 72 16 155/83 H 99 General: Well nourished, Well developed, No Acute Distress Head: Normocephalic, Atraumatic Eyes: Perrl, EOMI ENT: Moist mucous membranes, No rhinorrhea Neck: Supple, Nontender Cardiovascular: Regular rate, Regular rhythm, No murmurs Respiratory: No distress, CTA bilaterally, Chest nontender Abdomen: Soft, Nontender, Nondistended, Normal bowel sounds Back: Nontender, Normal Inspection Extremities: Nontender, No edema, - - Varicose veins around the right anterior darden and right lateral calf which are normal-appearing. There is no clot. Negative Homans. Normal distal pulses temperature cap refill. Negative for: Tenderness, Edema, Calf Tenderness Skin: Normal color, No rash Neurological: Alert, Oriented x3, Cranial nerves II-XII grossly intact, Normal Strength, Normal Sensation Psychological: Normal affect, Normal Mood Diagnostic/Tx/Re-eval - Medical Decision Making SPECT the patient has a lumbar radiculopathy with nerve root irritation causing burning. She used Tylenol. Does not want a thing here. I do not feel she has a blood clot in her leg in the deep or superficial system. Patient will follow- up as an outpatient. I do not feel she needs an emergent ultrasound as her leg exam is normal ED Disposition - Plan for ED Patient: Disposition: Home or Assisted Living Diagnosis: Lumbar radiculopathy, acute Instructions: ED LUMBAR RADICULOPATHY Referrals: Isidro Hester MD [Primary Care Provider] -
[2020-02-10 03:10] VITALS: RESP 16
== END 2020-02-10 03:11 | disposition home or self-care (01) ==
LOC: ED 02:42
PROVIDERS: Emergency Provider Emergency Medicine; PCP Internal Medicine
DX: M54.16 Radiculopathy, lumbar region (principal); I10 Essential (primary) hypertension; F41.8 Other specified anxiety disorders; E11.9 Type 2 diabetes mellitus without complications; M85.80 Other specified disorders of bone density and structure, unspecified site; Z86.2 Personal history of diseases of the blood and blood-forming organs and certain disorders involving the immune mechanism; Z85.3 Personal history of malignant neoplasm of breast; Z98.84 Bariatric surgery status; Z79.84 Long term (current) use of oral hypoglycemic drugs; Z79.899 Other long term (current) drug therapy
CPT/HCPCS: 99282

== ENCOUNTER 2020-04-03 05:54 | Day surgery (SDC) | payer MEDICARE, OTHER, SELFPAY ==
[2020-04-03] VITALS (15 sets, daily range): BP systolic 77–138; BP diastolic 56–80; PULSE 67–99; RESP 16; TEMP 36.1–37.2; O2SAT 93–100; BMI 28.0
[2020-04-03] MEDS: Lactated Ringers 1,000 ML 100 ML IV (06:27)
[2020-04-03 06:50] LABS: Bedside Glucose 147 mg/dL (70-110)
--- NOTE | 2020-04-03 06:50 | PCM.HP.STD ---
Problem List (1) Personal history of colonic polyps Status: Acute History of Present Illness Date of Admission: 04/03/20 The patient is a 70 year old F is a personal history of colon polyps. Her most recent colonoscopy was March 13, 2015. She had some diverticulosis at that time. It was her previous colonoscopy where polyps were resected. She otherwise is enjoying good health. She does have a history of breast cancer on the left 9 years ago. There is been no evidence recurrence. She has had previous gastric bypass surgery. She had trouble taking the bowel prep. She believes however that she is cleared out. Past Medical History Past Medical History (Chronic Problems): Chronic Problems (Last Reviewed 03/08/19 @ 11:02 by Charmaine Ordaz) Vitamin D deficiency (Chronic) Osteopenia (Chronic) Depression with anxiety (Chronic) Hypertension (Chronic) Type 2 diabetes mellitus (Chronic) Intestinal malabsorption following gastrectomy (Chronic) Anemia (Chronic) Breast cancer (Chronic) HTN (hypertension) (Chronic) Diabetes (Chronic) Bariatric surgery status (Chronic) History of malignant neoplasm of breast (Chronic) History of sciatica (Chronic) Disorder of sacroiliac joint (Chronic) Medical History: Medical History (Last Reviewed 03/08/19 @ 11:02 by Charmaine Ordaz) Left breast mass (Acute) N63.20 Abnormal mammogram of right breast (Acute) R92.8 Anemia (Chronic) D64.9 Breast cancer (Chronic) C50.919 HTN (hypertension) (Chronic) I10 Diabetes (Chronic) E11.9 High cholesterol E78.00 Allergies prochlorperazine [From Compazine] Allergy (Verified 04/03/20 06:09) Other Home Medications: Ambulatory Orders Medication Instructions Recorded anastrozole 1 mg tablet 1 mg PO QDAY 11/09/17 escitalopram oxalate 5 mg tablet 5 mg PO QDAY #60 tab 04/12/18 cholecalciferol (vitamin D3) 1,250 See Rx Instructions .ROUTE 02/15/19 mcg (50,000 unit) capsule .COMPLEX #12 capsule cyanocobalamin (vitamin B-12) 1,000 mcg IM Q2W #2 ea 08/25/19 1,000 mcg/mL injection kit metformin 1,000 mg tablet 1,000 mg PO BID #180 tab 11/29/19 Hydrochlorothiazide 12.5 mg PO DAILY 03/28/20 Ramipril 5 mg PO BID 03/28/20 Rosuvastatin Calcium 5 mg PO QHS 03/28/20 Surgical History: Surgical History (Last Updated 03/08/19 @ 11:06 by Charmaine Ordaz) H/O tubal ligation Z98.51 History Panniculectomy History of breast reconstruction Z98.82 History of cholecystectomy Z90.49 History of gastric bypass Z98.84 History of left cataract surgery Z98.42 History of partial mastectomy of left breast Z90.12 history of stomach surgery Surgical History: mastectomy Smoking Status: Never smoker Tobacco Use: Non-smoker Review of Systems Constitutional: Denies: Chills, Fever, Night Sweats Cardiovascular: Denies: Chest Pain Respiratory: Denies: Cough Gastrointestinal: Denies: Abdominal Pain, Melena Endocrine: Denies: Change in Body Habitus VTE Information - Inpt Only VTE Present on Admission: No Patient Problems: Active and Suspected Problems (Last Reviewed 03/08/19 @ 11:02 by Charmaine Ordaz) Personal history of colonic polyps (Acute) - Physical Exam Vitals/I&O's: Vital Signs Temp Pulse Resp BP Pulse Ox 96.9 F L 79 16 138/75 H 99 04/03/20 06:19 04/03/20 06:19 04/03/20 06:19 04/03/20 06:19 04/03/20 06:19 Oxygen Delivery Method Room Air Weight: 153 lb 10.595 oz Body Mass Index (BMI) 28.0 General: Alert, Oriented x3, Cooperative, No apparent distress HEENT: Atraumatic Oral: Moist Mucosa Lungs: Clear to auscultation, Normal air movement Cardiovascular: Regular rate, Regular Rhythm Abdomen: Bowel Sounds Present, Soft, Non Tender Extremities: No Calf Tenderness Psych/Mental Status: Normal Affect Laboratory Results 04/03/20 06:25: POC Glucose 147 H Current Medications Lactated Ringer's () 1,000 mls @ 100 mls/hr IV .Q10H REGIS Last Admin: 04/03/20 06:27 Dose: 100 mls/hr Documented by: Assessment/Plan All Active Problems (Last Reviewed 03/08/19 @ 11:02 by Charmaine Ordaz) Personal history of colonic polyps (Acute) Left breast mass (Acute) Abnormal mammogram of right breast (Acute) Left ankle sprain (Acute) Cellulitis, abdominal wall (Acute) 70-year-old female with a personal history of colon polyps. Currently she is asymptomatic. She presents via open access today. We plan to proceed with a colonoscopy with possible biopsy or polypectomy is indicated. She has had an opportunity to ask and have questions answered. We will proceed as noted. John Adrian M.D., F.A.C.S. Procedure Criteria Procedure Type: Elective COVID Risk Discussion: The surgeon/proceduralist and patient have discussed in detail the risk of exposure to and/or potential harm posed by the COVID-19 virus with having a surgery/procedure at this time versus the risk of delaying the surgery/procedure. It is not possible to know either the risk of delaying the surgery or procedure or chance of getting an infection with perfect accuracy, but a joint decision was made between the patient and the surgeon/proceduralist to proceed at this time with the scheduled surgery/procedure as indicated on the consent form.
--- NOTE | 2020-04-03 07:26 | OP.COLON_ITS ---
Patient Name: Laura Gonsales Procedure Date: 04/03/2020 6:57 AM Date of : 1950 Age: 70 Procedure: Colonoscopy Indications: High risk colon cancer surveillance: Personal history of colonic polyps Providers: John Adrian MD Referring MD: Isidro Hester MD Medicines: Midazolam 3 mg IV, Meperidine 100 mg IV Patient Profile: Last Colonoscopy: February 2015. Complications: No immediate complications. Procedure: Pre-Anesthesia Assessment: - Prior to the procedure, a History and Physical was performed, and patient medications and allergies were reviewed. The patient's tolerance of previous anesthesia was also reviewed. The risks and benefits of the procedure and the sedation options and risks were discussed with the patient. All questions were answered, and informed consent was obtained. Prior Anticoagulants: The patient has taken no previous anticoagulant or antiplatelet agents. ASA Grade Assessment: II - A patient with mild systemic disease. After reviewing the risks and benefits, the patient was deemed in satisfactory condition to undergo the procedure. After I obtained informed consent, the scope was passed under direct vision. Throughout the procedure, the patient's blood pressure, pulse, and oxygen saturations were monitored continuously. The Colonoscope was introduced through the anus and advanced to the cecum, identified by appendiceal orifice and ileocecal valve. The colonoscopy was performed without difficulty. The patient tolerated the procedure well. The quality of the bowel preparation was good. The ileocecal valve and the appendiceal orifice were photographed. Moderate Sedation: Moderate (conscious) sedation was personally administered by the endoscopist. The following parameters were monitored: oxygen saturation, heart rate, blood pressure, and response to care. Total physician intraservice time was 15 minutes. Scope In: 7:05:43 AM Scope Withdrawal Time 0 hours 9 minutes 7 seconds Scope Out: 7:22:02 AM Total Procedure Duration Time 0 hours 16 minutes 19 seconds Findings: Hemorrhoids were found on perianal exam. Scattered diverticula were found in the sigmoid colon. Impression: - Hemorrhoids found on perianal exam. - Diverticulosis in the sigmoid colon. - No specimens collected. Recommendation: - Discharge patient to home. - Resume previous diet. - Continue present medications. - Repeat colonoscopy in 10 years for screening purposes. No polyps on last two exams. Procedure Code(s): --- Professional --- 28051, Colonoscopy, flexible; diagnostic, including collection of specimen(s) by brushing or washing, when performed (separate procedure) 18376, 59, Moderate sedation services provided by the same physician or other qualified health healthcare risk control consultant performing the diagnostic or therapeutic service that the sedation supports, requiring the presence of an independent trained observer to assist in the monitoring of the patient's level of consciousness and physiological status; initial 15 minutes of intraservice time, patient age 5 years or older Diagnosis Code(s): --- Professional --- Z86.010, Personal history of colonic polyps K64.9, Unspecified hemorrhoids K57.30, Diverticulosis of large intestine without perforation or abscess without bleeding CPT copyright 2017 [employer]. All rights reserved. The codes documented in this report are preliminary and upon construction job titles review may be revised to meet current compliance requirements. John Adrian MD 04/03/2020 7:26:17 AM This report has been signed electronically. Number of Addenda: 0 Note Initiated On: 04/03/2020 6:57 AM
--- NOTE | 2020-04-03 07:26 | OP.CCLET_ITS ---
04/03/2020 Isidro Hester MD [address] [place] [address] [place] [address] Re : Colonoscopy procedure for Laura Gonsales Dear Dr. Hester This procedure was performed on Friday, April 03, 2020. My impressions and recommendations are as follows: Impressions : - Hemorrhoids found on perianal exam. - Diverticulosis in the sigmoid colon. - No specimens collected. Recommendations : - Discharge patient to home. - Resume previous diet. - Continue present medications. - Repeat colonoscopy in 10 years for screening purposes. No polyps on last two exams. My findings are described in the full procedure note, which is enclosed. If I can be of further assistance, please feel free to contact me at Doctor phone number(s): Work: . Sincerely, John Adrian MD 04/03/2020 7:26:17 AM This report has been signed electronically.
== END 2020-04-03 09:11 | disposition home or self-care (01) ==
LOC: EN 05:55 → AC 05:56
PROVIDERS: PCP Internal Medicine; Referring Provider Internal Medicine; Visit Provider Surgery
PROC: 0DJD8ZZ Inspection of Lower Intestinal Tract, Via Natural or Artificial Opening Endoscopic (ICD-10-PCS; CPT 45378; principal; 2020-04-03 06:55)
DX: Z86.010 Personal history of colon polyps (principal); K57.30 Diverticulosis of large intestine without perforation or abscess without bleeding; K64.9 Unspecified hemorrhoids; Z11.59 Encounter for screening for other viral diseases; I10 Essential (primary) hypertension; F41.8 Other specified anxiety disorders; E11.9 Type 2 diabetes mellitus without complications; E78.00 Pure hypercholesterolemia, unspecified; E55.9 Vitamin D deficiency, unspecified; Z85.3 Personal history of malignant neoplasm of breast; Z86.2 Personal history of diseases of the blood and blood-forming organs and certain disorders involving the immune mechanism; Z87.19 Personal history of other diseases of the digestive system; Z98.84 Bariatric surgery status; Z90.49 Acquired absence of other specified parts of digestive tract; Z79.84 Long term (current) use of oral hypoglycemic drugs; Z79.899 Other long term (current) drug therapy
CPT/HCPCS: 45378; 82962; 87635; 94799; 99152; 99153; J7120; U0003

== ENCOUNTER → 2020-06-29 06:31 | Outpatient (CLI) | payer MEDICARE, OTHER, SELFPAY ==
[2020-04-03 06:19] VITALS: BMI 28.0
[2020-06-29 07:58] LABS: Anion Gap 6 (5-15); BUN 15 mg/dL (7-18); BUN/Creat Ratio 16.7 RATIO (10-20); Chloride 102 mmol/L (98-107); EST Glomerular Filtration Rate 66 mL/min (>60); Est Glom Filt Rate - Afr Amer 79 mL/min (>60); Glucose 144 mg/dL (74-106); Potassium 3.5 mmol/L (3.5-5.1); Sodium Level 138 mmol/L (136-145)
[2020-06-29 10:34] LABS: Hemoglobin A1c 7.2 % (3.8-5.6)
== END ==
PROVIDERS: PCP Internal Medicine; Referring Provider Internal Medicine; Visit Provider Internal Medicine
DX: E11.9 Type 2 diabetes mellitus without complications (principal)
CPT/HCPCS: 36415; 80048; 83036

== ENCOUNTER → 2020-07-04 08:32 | Outpatient (CLI) | payer MEDICARE, OTHER, SELFPAY ==
[2020-07-04 08:01] VITALS: BMI 28.9
[2020-07-04 12:21] LABS: Absolute Lymphocyte Count 2.75 X10^3/uL (0.83-4.51); Basophil# 0.05 X10^3/uL; Basophil% 0.6 % (0-1); Eosinophil# 0.24 X10^3/uL; Eosinophils% 2.8 % (0-5); Hematocrit 37.3 % (37-47); Hemoglobin 11.3 g/dL (12.0-15.0); Lymphocyte # 2.75 X10^3/ul (4.0); Lymphocyte % 32.1 % (19-41); Mean Corp Hgb Conc 30.3 g/dL (32-36); Mean Corpuscular Hgb 26.3 pg (27.0-32.0); Mean Corpuscular Volume 86.7 fL (81-99); Mean Platelet Vol. 10.1 fl (6.2-12.0); Monocyte# 0.51 X10^3/uL; Monocyte% 5.9 % (0-10); NRBC Flagged by Analyzer 0 % (0-5); Neutrophil # 4.98 X10^3/uL (2.7-7.7); Platelet Count 289 K/mm3 (150-450); RBC Distribution Width CV 14.4 % (11.6-14.6); RBC Distribution Width SD 45.2 fl (35.1-43.9); White Blood Count 8.6 K/mm3 (4.4-11.0)
[2020-07-04 12:43] LABS: AST(SGOT) 18 U/L (15-37); Alanine Aminotransfer ALT/SGPT 27 U/L (13-56); Albumin, Serum 3.7 g/dL (3.2-5.0); Alkaline Phosphatase 89 U/L (45-117); Bilirubin, Direct 0.11 mg/dL (0.00-0.30); Cholesterol 123 mg/dL (200); High Density Lipoprotein 47 mg/dL; Protein, Total 7.7 g/dL (6.4-8.2); Triglycerides 162 mg/dL; Very Low Density Lipoprotein 32 mg/dL (5-40)
== END ==
PROVIDERS: PCP Internal Medicine; Referring Provider Internal Medicine; Visit Provider Internal Medicine
DX: I10 Essential (primary) hypertension (principal)
CPT/HCPCS: 36415; 80061; 80076; 85025

== ENCOUNTER → 2021-02-15 10:48 | Outpatient (CLI) | payer MEDICARE, OTHER, SELFPAY ==
[2021-02-15 10:17] VITALS: BMI 28.9
[2021-02-15 12:18] LABS: Absolute Lymphocyte Count 2.82 X10^3/uL (0.83-4.51); Absolute Neutrophil Count 5.2 X10^3/uL (2.0-7.7); Basophil# 0.05 X10^3/uL; Basophil% 0.6 % (0-1); Eosinophil# 0.18 X10^3/uL; Hematocrit 38.9 % (37-47); Hemoglobin 12.1 g/dL (12.0-15.0); Lymphocyte # 2.82 X10^3/ul (0.83-4.51); Lymphocyte % 31.9 % (19-41); Mean Corp Hgb Conc 31.1 g/dL (32-36); Mean Corpuscular Hgb 25.9 pg (27.0-32.0); Mean Corpuscular Volume 83.3 fL (81-99); Mean Platelet Vol. 9.9 fl (6.2-12.0); Monocyte# 0.52 X10^3/uL; Monocyte% 5.9 % (0-10); NRBC Flagged by Analyzer 0 % (0-5); Neutrophil # 5.24 X10^3/uL (2.7-7.7); Neutrophil % 59.4 % (47-70); Platelet Count 332 K/mm3 (150-450); RBC Distribution Width CV 14.6 % (11.6-14.6); RBC Distribution Width SD 43.8 fl (35.1-43.9); Red Blood Count 4.67 M/mm3 (4.2-5.4); White Blood Count 8.8 K/mm3 (4.4-11.0)
[2021-02-15 12:44] LABS: Microalbumin,Random Urine 7.1 mg/L (NO RANGE EST.); Microalbumin:Creatinine Ratio 6.9 mg/g CRE (<30 mg/g CRE)
[2021-02-15 12:59] LABS: Vitamin D,25 Hydroxy 43.4 ng/mL
[2021-02-15 13:00] LABS: AST(SGOT) 22 U/L (15-37); Alanine Aminotransfer ALT/SGPT 32 U/L (13-56); Alkaline Phosphatase 92 U/L (45-117); Anion Gap 8 (5-15); BUN 15 mg/dL (7-18); BUN/Creat Ratio 17.1 RATIO (10-20); Calcium,Total 9.3 mg/dL (8.5-10.1); Chloride 104 mmol/L (98-107); Creatinine, Serum 0.88 mg/dL (0.55-1.02); EST Glomerular Filtration Rate 67 mL/min (>60); Est Glom Filt Rate - Afr Amer 81 mL/min (>60); Glucose 119 mg/dL (74-106); Potassium 4.2 mmol/L (3.5-5.1); Sodium Level 137 mmol/L (136-145)
[2021-02-15 13:15] LABS: Hemoglobin A1c 7.7 % (3.8-5.6)
== END ==
PROVIDERS: PCP Internal Medicine; Referring Provider Internal Medicine; Visit Provider Internal Medicine
DX: E55.9 Vitamin D deficiency, unspecified (principal); E11.9 Type 2 diabetes mellitus without complications
CPT/HCPCS: 36415; 80053; 82043; 82306; 82570; 83036; 85025

== ENCOUNTER → 2021-02-28 09:48 | Outpatient (CLI) | payer MEDICARE, OTHER, SELFPAY ==
[2021-02-15 10:17] VITALS: BMI 28.9
--- NOTE | 2021-02-28 09:54 | BD_ITS ---
STUDY: DUAL ENERGY X-RAY ABSORPTIOMETRY / DXA REASON FOR EXAM: Female, 71 years old. History of Osteopenia TECHNIQUE: Bone Mineral Density (BMD) measurements of lumbar spine and bilateral hips were obtained. COMPARISON: Comparison is made with prior study dated 10/21/2018. FINDINGS: Lumbar Spine (L1-L4): g/cm2 (1.160) / T-score (-0.3) / Z-score (1.4) Findings are suggestive of normal bone density with a low fracture risk. Left Femur Total: g/cm2 (1.012) / T-score (0.0) / Z-score (1.6) Left Femoral Neck: g/cm2 (0.848) / T-score (-1.4) / Z-score (0.4) Right Femur Total: g/cm2 (0.986) / T-score (-0.2) / Z-score (1.4) Right Femoral Neck: g/cm2 (0.863) / T-score (-1.3) / Z-score (0.5) The T-Scores on the most recent prior examination were: Lumbar Spine (L1-L4): There has been improvement of bone density since the previous examination. Left Femur Total: which represents a worsening of 6.4%. Right Femur Total: which represents a worsening of 2.7%. BD/Dexa Bone Density Study IMPRESSION: The patient is considered osteopenic as outlined below according to World [employer] Organization (WHO) criteria with a low fracture risk. There has been worsening of bone density since the previous examination. Reference Information: The T-score is the number of standard deviations above or below the standard which is normal for young adults at their peak bone mineral density. The World Health Organization (WHO) interprets the T-scores as follows: Above -1 Normal bone density Between -1 and -2.5 Osteopenia Equal to / or below -2.5 Osteoporosis As a practical clinical guideline, osteopenia may be graded as follows: Mild -1 through -1.5 Moderate -1.6 through -2.0 Severe -2.1 through -2.4 The Z-score is the number of standard deviations above or below age-matched controls. A Z-score of less than -1.5 would be considered abnormal. References: 1. NIH Osteoporosis and Related Bone Diseases www osteo.org 2. International Society for Clinical Densitometry www iscd.org 3. National Osteoporosis Foundation www nof.org Electronically Signed: Joe Trevino MD at 15:30 EDT , Service support ,
== END ==
PROVIDERS: PCP Internal Medicine; Referring Provider Internal Medicine; Visit Provider Internal Medicine
DX: Z78.0 Asymptomatic menopausal state (principal)
CPT/HCPCS: 77080

== ENCOUNTER 2021-03-20 14:00 | Outpatient (RCR) | payer MEDICARE, OTHER, SELFPAY ==
[2021-02-15 10:17] VITALS: BMI 28.9
--- NOTE | 2021-03-01 12:20 | HP.PTEVAL_ITS ---
Patient's Visit Information KARYN GUSMAN is a 71 year old F referred to Physical Therapy by Dr. Isidro Hester MD with a diagnosis of neck pain and L shoulder pain. Date of Evaluation: 03/01/21 Physical Therapist: Jesus Giron, PT, ATC - Visit Plan Frequency: 2-3x /Week Duration: 4-6 Weeks Plan: Neck....Postural education, DTR, US, mobilizations, and HEP. L shoulder.....US, rotator cuff strengthening, scap stab ex's, and HEP - Subjective Pt reports she has had L shoulder pain for three months. Pt reports she has pain this putting on her seat belt and reaching behind her to apply a mirtha. Pt reports she is really here to day because she has to have PT prior to getting an MRI. Pt is R hand dominant. Pt reports she will get L UE tingling and numbness in L UE that will extend to her fingers intermittently. Pt reports no sleep difficulty secondary to pain. Pt reports she has significant pain in L shoulder at times when she gets up at nights to use the bathroom. Pt reports she has been told she has neck OA which radiates pain into her L shoulder, however, she believes she has a shoulder problem and is here today to get it checked out. 4/10 pain at rest, 9/10 pain at worst - Pain L shoulder pain Pain Intensity (Out of 10): 4 Pain Intensity Range: 9 - Objective Neuro: B UE sensation is WNL to light touch. B bicepital reflex 2/3. Palpation: Pt is very sore along the distribution of the supraspinatus. Pt has sig muscle guarding in neck. Palpation to L side of neck refers pain into L shoulder. ROM: R shoulder flex= 160, abd= 165, ER= 10, IR WNL; L shoulder flex= 100, abd= 110, ER= 0, IR minimally limited. MMT: R shoulder 5/5 throughout. L shoulder 3+/5 and painful. Special test: Pos empty can, - Goals Goal 1:: Decrease L shoulder pain x 50% to aid with IADL's Goal Time Frame: 4-6 Weeks Goal 2:: Increase L shoulder strength x 1 grade to aid with IADL's Goal Time Frame: 4-6 Weeks Goal 3:: Decrease neck pain x 50% to aid with driving Goal Time Frame: 4-6 Weeks Goal 4:: I with HEP Goal Time Frame: 4-6 Weeks - Rehabilitation Potential Physical Therapy Diagnosis: Pt has neck pain, L shoulder pain, and limited L shoulder ROM secondary to degenerative changes Rehabilitation Potential: Good - Anticipated Interventions Patient/Client Instruction: Educate patient on: Condition, Plan of Care For the Purpose of:: To improve self management Therapeutic Exercise to Include: Strength training, Endurance training, Body mechanics, Postural training, Scapular Strength/Stabilization For the Purpose of:: To decrease pain, To increase ROM, To improve muscle performance and motor function Manual Therapy Techniques to Include: Mobilization, Soft tissue mobilization For the Purpose of:: To decrease pain Ultrasound (thermal/non thermal): Yes For the Purpose of:: To decrease pain Thank you for the opportunity to evaluate your patient. For Medicare and Medicare HMO plans, please review the plan of care and approve it. It will need to be FAXED BACK to us at [phone] for Medicare purposes. For Medicare only, by signing this I certify the plan of care. Please let me know if there are questions or concerns regarding this plan of care. Physician Signature: Date:
--- NOTE | 2021-03-20 14:55 | HP.PTREVAL ---
Dr. Isidro Hester MD, It has been my pleasure to treat KARYN GUSMAN over the last 4 visits for neck pain and L shoulder pain. Please see the progress note below for an update on the physical therapy plan of care! Subjective: I am so sore today. I see the DrRonna on Thursday. I dont think I can do much today Objective/Function: L shoulder pain ranges from 5-8/10. L shoulder ROM: flex= 100, abd= 90, ER 0 degrees. L shoulder MMT: 3/5 throughout available ROM and very painful. Pt is not showing any signs of improvements at this time. Plan Plan: Cont/DC riki Torres visit on Thursday Goals Goal 1:: Decrease L shoulder pain x 50% to aid with IADL's Goal Time Frame: 4-6 Weeks Goal 2:: Increase L shoulder strength x 1 grade to aid with IADL's Goal Time Frame: 4-6 Weeks Goal 3:: Decrease neck pain x 50% to aid with driving Goal Time Frame: 4-6 Weeks Goal 4:: I with HEP Goal Time Frame: 4-6 Weeks Anticipated Interventions Patient/Client Instruction: Educate patient on: Condition, Plan of Care For the Purpose of:: To improve self management Therapeutic Exercise to Include: Strength training, Endurance training, Body mechanics, Postural training, Scapular Strength/Stabilization For the Purpose of:: To decrease pain, To increase ROM, To improve muscle performance and motor function Manual Therapy Techniques to Include: Mobilization, Soft tissue mobilization For the Purpose of:: To decrease pain Ultrasound (thermal/non thermal): Yes For the Purpose of:: To decrease pain Please do not hesitate to contact me at [phone] by phone or if you have questions or concerns regarding this new plan of care! Sincerely, Jesus Giron, PT, ATC
== END 2021-03-20 19:00 | disposition home or self-care (01) ==
LOC: PT 14:00
PROVIDERS: PCP Internal Medicine; Referring Provider Internal Medicine; Visit Provider Internal Medicine
DX: M54.12 Radiculopathy, cervical region (principal); M25.512 Pain in left shoulder
CPT/HCPCS: 97110; 97140; 97161; 97164

== ENCOUNTER → 2021-03-26 10:57 | Outpatient (CLI) | payer MEDICARE, OTHER, SELFPAY ==
[2021-03-22 08:40] VITALS: BMI 28.9
--- NOTE | 2021-03-26 10:59 | MRI_ITS ---
STUDY: MRI LEFT SHOULDER REASON FOR EXAM: Female, 71 years old. Left Shoulder Pain TECHNIQUE: Standardized fat and water weighted pulse sequences were obtained in all 3 orthogonal planes. COMPARISON: Left shoulder x-ray dated JANUARY 14, 2021 FINDINGS: Mild thickening and signal abnormality in the far anterior fibers of the supraspinatus tendon at the greater tuberosity insertion site is compatible with tendinosis. No full-thickness tear is present. Normal infraspinatus tendon. Normal subscapularis tendon. Normal teres minor tendon. Normal supraspinatus muscle. Normal infraspinatus muscle. Normal subscapularis muscle. Normal teres minor muscle. Normal glenohumeral articulation. Normal humeral head and visualized proximal humerus. Normal biceps labral complex. Normal intracapsular long biceps tendon. Normal labrum. Normal capsulo- ligamentous complex. Normal rotator interval. Normal acromioclavicular articulation. There is a Type II morphology (curved), with a neutral orientation. There is no subacromial-subdeltoid bursal fluid. Normal visualized coracohumeral and coracoacromial ligaments. Normal quadrilateral space. Normal axillary space. Normal deltoid muscle. Normal trapezius muscle. MRI/Upper Ext Joint Only(Routine) IMPRESSION: 1. Mild supraspinatus tendinosis Electronically Signed: Jamaal Null MD at 20:15 EDT , Service support ,
== END ==
PROVIDERS: PCP Internal Medicine; Visit Provider Internal Medicine
DX: M12.812 Other specific arthropathies, not elsewhere classified, left shoulder (principal); M75.102 Unspecified rotator cuff tear or rupture of left shoulder, not specified as traumatic; M25.512 Pain in left shoulder
CPT/HCPCS: 73221

== ENCOUNTER → 2021-05-07 08:19 | Outpatient (CLI) | payer MEDICARE, OTHER, SELFPAY ==
--- NOTE | 2021-05-07 08:22 | RAD_ITS ---
PROCEDURE: Fluoroscopic guided left shoulder Injection DATE: 05/07/2021. INDICATION: Female, 71 years old. Chronic left shoulder pain. PHYSICIAN: Joe Trevino M.D. MEDICATIONS: 12 mg of BETAMETHASONE and 4 cc of 1% LIDOCAINE. 2% lidocaine administered subcutaneously for local anesthesia. ACCESS SITE: Left shoulder. NEEDLE: 22-gauge spinal needle. FLUOROSCOPY TIME (if supplied): (1:02) minutes/seconds. One image was obtained. FINDINGS: The risks, benefits, and alternatives to the procedure were explained to the patient. The specific risks of bleeding, infection, and neurovascular injury were detailed and accepted. Witnessed informed consent was obtained. A 22-gauge spinal needle was positioned under radiographic fluoroscopic localization. Approximately 2 cc of ISOVUE-300 instilled for localization purposes. Medication was then injected. The patient tolerated the procedure well without any immediate complications. RAD/Inj/Asp Tariq Jt Should/Hip/Knee IMPRESSION: 1. Successful fluoroscopic guided left shoulder injection. Electronically Signed: Joe Trevino MD at 10:59 EDT , Service support ,
[2021-05-07] MEDS: Betamethasone/Betamethasone 30 MG/5 ML Vial 12 MG INTRAARTIC (08:30)
[2021-05-07] MEDS: Lidocaine 2% (5ml sdv) 5 ML VIAL.MPF 1 ML INFILT (08:30)
[2021-05-07] MEDS: Lidocaine 1% (5 ml sdv) 5 ML Vial 4 ML OPERA.SITE (08:30)
== END ==
PROVIDERS: PCP Internal Medicine; Referring Provider Specialist; Visit Provider Specialist
DX: M75.02 Adhesive capsulitis of left shoulder (principal)
CPT/HCPCS: 20610; 77002; Q9967; J0702

== ENCOUNTER → 2021-07-05 10:25 | Outpatient (CLI) | payer MEDICARE, OTHER, SELFPAY ==
[2021-07-05 12:54] LABS: ALB/GLOB Ratio 0.9 RATIO (0.9-2.4); AST(SGOT) 19 U/L (15-37); Alanine Aminotransfer ALT/SGPT 27 U/L (13-56); Albumin, Serum 3.6 g/dL (3.2-5.0); Alkaline Phosphatase 103 U/L (45-117); Anion Gap 4 (5-15); BUN 14 mg/dL (7-18); BUN/Creat Ratio 18.7 RATIO (10-20); Calcium,Total 8.9 mg/dL (8.5-10.1); Chloride 105 mmol/L (98-107); Cholesterol 159 mg/dL (200); Creatinine, Serum 0.75 mg/dL (0.55-1.02); EST Glomerular Filtration Rate 81 mL/min (>60); Est Glom Filt Rate - Afr Amer 98 mL/min (>60); Globulin 4.2 g/dL (2.2-4.2); Glucose 136 mg/dL (74-106); High Density Lipoprotein 41 mg/dL; Potassium 3.9 mmol/L (3.5-5.1); Protein, Total 7.8 g/dL (6.4-8.2); Sodium Level 137 mmol/L (136-145); Triglycerides 167 mg/dL; Very Low Density Lipoprotein 33 mg/dL (5-40)
== END ==
PROVIDERS: PCP Internal Medicine; Referring Provider Internal Medicine; Visit Provider Internal Medicine
DX: E11.9 Type 2 diabetes mellitus without complications (principal); I10 Essential (primary) hypertension
CPT/HCPCS: 36415; 80053; 80061

== ENCOUNTER → 2021-08-19 07:49 | Outpatient (CLI) | payer MEDICARE, OTHER, SELFPAY ==
--- NOTE | 2021-08-19 07:52 | VDLE_ITS ---
Reason For Study: Varicose Veins RIGHT LEFT CFV is compressible, spontaneous, phasic, CFV is compressible, spontaneous, phasic, competent and demonstrates normal competent, and demonstrates normal augmentation. augmentation. FV is compressible, spontaneous, phasic, FV is compressible, spontaneous, phasic, competent and demonstrates normal competent and demonstrates normal augmentation. augmentation. POP V is compressible, spontaneous, phasic, POP V is compressible, spontaneous, phasic, competent and demonstrates normal competent and demonstrates normal augmentation. augmentation. T/P Trunk is compressible. T/P Trunk is compressible. PTV is compressible. PTV is compressible. RT PerV is compressible. LT PerV is compressible. SFJ is competent and measures 0.37cm x 0.39 SFJ is competent and measures 0.39cm x 0.36 cm. cm. GSV proximal thigh measures 0.22cm x 0.22 cm. GSV proximal thigh measures 0.49cm x 0.50 cm. GSV at knee measures 0.23cm x 0.24 cm. GSV at knee measures 0.25cm x 0.28 cm. GSV above knee is competent. GSV above knee is INCOMPETENT for greater GSV below knee is INCOMPETENT for greater than 0.5 seconds. than 0.5 seconds. GSV below knee is competent. SSV proximal calf is competent and measures SSV proximal calf is competent and measures 0.32cm x 0.38 cm. 0.30cm x 0.29 cm. Procedure This is a venous duplex using B-mode, color flow and spectral Doppler. Exam performed in department. A preliminary report was called and/or faxed to Dr. Mcgill. VL/Venous Duplex US - Rambo Extrem Interpretation Summary Bilateral no DVT or SVT. Bilateral calf GSV with reflux. Ordering Physician: Mando Mcgill Referring Physician: Isidro Hester Performed By: Kamilah Strickland, GREGORY, RVT
== END ==
PROVIDERS: PCP Internal Medicine; Referring Provider Surgery Vascular Surgery; Visit Provider Surgery Vascular Surgery
DX: I83.893 Varicose veins of bilateral lower extremities with other complications (principal); M79.89 Other specified soft tissue disorders; M79.606 Pain in leg, unspecified
CPT/HCPCS: 93970

== ENCOUNTER 2021-09-26 07:57 | Outpatient (CLI) | payer MEDICARE, OTHER, SELFPAY ==
--- NOTE | 2021-09-26 08:15 | RAD_ITS ---
PROCEDURE: Fluoroscopic guided left shoulder Injection DATE: 09/26/2021. INDICATION: Female, 71 years old. Chronic left shoulder pain. PHYSICIAN: Joe Trevino M.D. MEDICATIONS: 4 mg of BETAMETHASONE and 4 cc of 1% LIDOCAINE. 2% lidocaine administered subcutaneously for local anesthesia. ACCESS SITE: Left shoulder. NEEDLE: 22-gauge spinal needle. FLUOROSCOPY TIME (if supplied): (0:46) minutes/seconds. One image was obtained. FINDINGS: The risks, benefits, and alternatives to the procedure were explained to the patient. The specific risks of bleeding, infection, and neurovascular injury were detailed and accepted. Witnessed informed consent was obtained. A 22-gauge spinal needle was positioned under radiographic fluoroscopic localization. Approximately 2 cc of ISOVUE-300 instilled for localization purposes. Medication was then injected. The patient tolerated the procedure well without any immediate complications. RAD/Inj/Asp Tariq Jt Should/Hip/Knee IMPRESSION: 1. Successful fluoroscopic guided left shoulder injection. Electronically Signed: Joe Trevino MD at 9:25 EST ,
[2021-09-26] MEDS: Betamethasone/Betamethasone 30 MG/5 ML Vial 12 MG INTRAARTIC (08:25)
[2021-09-26] MEDS: Lidocaine 1% (5 ml sdv) 5 ML Vial 4 ML OPERA.SITE (08:25)
[2021-09-26] MEDS: Lidocaine 2% (5ml sdv) 5 ML VIAL.MPF INFILT (08:25)
== END 2021-09-26 23:59 | disposition short-term general hospital (02) ==
LOC: RAD 07:59
PROVIDERS: PCP Internal Medicine; Referring Provider Specialist; Visit Provider Specialist
DX: M75.02 Adhesive capsulitis of left shoulder (principal)
CPT/HCPCS: 20610; 77002; Q9967; J0702

== ENCOUNTER 2021-10-30 16:12 | Outpatient (CLI) | payer MEDICARE, OTHER, SELFPAY ==
--- NOTE | 2021-10-30 16:22 | MRI_ITS ---
STUDY: MRI LEFT SHOULDER REASON FOR EXAM: Left shoulder pain and limited range of motion since last December, frozen shoulder. TECHNIQUE: Standardized fat and water weighted pulse sequences were obtained in all 3 orthogonal planes. COMPARISON: MRI images 03/26/2021, radiographs 01/14/2021. FINDINGS: There is supraspinatus tendinosis and interval development of a small low-grade partial-thickness tear of the bursal surface of the distal supraspinatus tendon (T2 coronal image 8) measuring 0.8 cm in length. Normal infraspinatus tendon. There is subscapularis tendinosis (T2 axial image 13) without discrete tendon tear. Normal teres minor tendon. Normal supraspinatus muscle. Normal infraspinatus muscle. Normal subscapularis muscle. Normal teres minor muscle. There is a minimal volume of fluid in the glenohumeral joint. Normal humeral head and visualized proximal humerus. Normal biceps labral complex. Normal intracapsular long biceps tendon. Normal labrum. Normal capsulo- ligamentous complex. There is soft tissue fullness in the rotator cuff interval (T2 sagittal images 6, 7). Normal acromioclavicular articulation. There is a Type I morphology (flat undersurface), with a neutral orientation. There is no subacromial-subdeltoid bursal fluid. Normal visualized coracohumeral and coracoacromial ligaments. Normal deltoid muscle. Normal trapezius muscle. MRI/Upper Ext Joint Only(Routine) IMPRESSION: Small low-grade partial-thickness tear and tendinosis of the supraspinatus tendon. Subscapularis tendinosis. Soft tissue fullness in the rotator cuff interval, suggestive of adhesive capsulitis. Electronically Signed: Syed Aceves MD at 10:43 EST ,
== END 2021-10-30 23:59 | disposition home or self-care (01) ==
LOC: MRI 16:13
PROVIDERS: PCP Internal Medicine; Referring Provider Specialist; Visit Provider Specialist
DX: M75.02 Adhesive capsulitis of left shoulder (principal); M25.512 Pain in left shoulder
CPT/HCPCS: 73221

== ENCOUNTER → 2022-01-20 | Outpatient (CLI) | payer MEDICARE, OTHER, SELFPAY ==
[2022-01-20 12:42] LABS: Absolute Lymphocyte Count 2.64 X10^3/uL (0.83-4.51); Absolute Neutrophil Count 5.3 X10^3/uL (2.0-7.7); Basophil# 0.04 X10^3/uL; Basophil% 0.5 % (0-1); Eosinophil# 0.19 X10^3/uL; Eosinophils% 2.2 % (0-5); Hematocrit 37.1 % (37-47); Hemoglobin 11.6 g/dL (12.0-15.0); Lymphocyte # 2.64 X10^3/ul (0.83-4.51); Mean Corp Hgb Conc 31.3 g/dL (32-36); Mean Corpuscular Hgb 26.7 pg (27.0-32.0); Mean Corpuscular Volume 85.5 fL (81-99); Mean Platelet Vol. 9.8 fl (6.2-12.0); Monocyte% 6.8 % (0-10); NRBC Flagged by Analyzer 0 % (0-5); Neutrophil # 5.32 X10^3/uL (2.7-7.7); Neutrophil % 60.3 % (47-70); Platelet Count 325 K/mm3 (150-450); RBC Distribution Width CV 15.1 % (11.6-14.6); RBC Distribution Width SD 47.7 fl (35.1-43.9); Red Blood Count 4.34 M/mm3 (4.2-5.4); White Blood Count 8.8 K/mm3 (4.4-11.0)
[2022-01-20 12:57] LABS: Vitamin B12 987 pg/mL (211-911); Vitamin D,25 Hydroxy 63.8 ng/mL
[2022-01-20 13:11] LABS: AST(SGOT) 19 U/L (15-37); Alanine Aminotransfer ALT/SGPT 25 U/L (13-56); Albumin, Serum 3.8 g/dL (3.2-5.0); Alkaline Phosphatase 58 U/L (45-117); Anion Gap 8 (5-15); BUN 17 mg/dL (7-18); BUN/Creat Ratio 17.6 RATIO (10-20); Calcium,Total 9.3 mg/dL (8.5-10.1); Chloride 104 mmol/L (98-107); Cholesterol 120 mg/dL (200); Creatinine, Serum 0.96 mg/dL (0.55-1.02); EST Glomerular Filtration Rate 60 mL/min (>60); Est Glom Filt Rate - Afr Amer 73 mL/min (>60); Globulin 3.9 g/dL (2.2-4.2); Glucose 91 mg/dL (74-106); High Density Lipoprotein 43 mg/dL; Protein, Total 7.7 g/dL (6.4-8.2); Sodium Level 136 mmol/L (136-145); Triglycerides 145 mg/dL; Very Low Density Lipoprotein 29 mg/dL (5-40)
== END | disposition home or self-care (01) ==
LOC: BIMLAB 09:15
PROVIDERS: PCP Internal Medicine; Referring Provider Internal Medicine; Visit Provider Internal Medicine
DX: E11.69 Type 2 diabetes mellitus with other specified complication (principal); I10 Essential (primary) hypertension; K91.2 Postsurgical malabsorption, not elsewhere classified; Z90.3 Acquired absence of stomach [part of]
CPT/HCPCS: 36415; 80053; 80061; 82306; 82607; 85025

== ENCOUNTER → 2022-10-16 | Outpatient (CLI) | payer MEDICARE, OTHER, SELFPAY ==
[2022-10-16 12:13] LABS: Erythrocyte Sedimentation Rate 27 mm/hr (0-30)
[2022-10-16 12:14] LABS: Absolute Lymphocyte Count 2.38 X10^3/uL (0.83-4.51); Absolute Neutrophil Count 5.1 X10^3/uL (2.0-7.7); Basophil# 0.04 X10^3/uL; Basophil% 0.5 % (0-1); Eosinophil# 0.17 X10^3/uL; Eosinophils% 2.1 % (0-5); Hematocrit 35.7 % (37-47); Hemoglobin 10.6 g/dL (12.0-15.0); Lymphocyte # 2.38 X10^3/ul (0.83-4.51); Lymphocyte % 29.2 % (19-41); Mean Corp Hgb Conc 29.7 g/dL (32-36); Mean Corpuscular Hgb 24.5 pg (27.0-32.0); Mean Corpuscular Volume 82.6 fL (81-99); Mean Platelet Vol. 9.8 fl (6.2-12.0); Monocyte# 0.42 X10^3/uL; Monocyte% 5.2 % (0-10); NRBC Flagged by Analyzer 0 % (0-5); Neutrophil # 5.11 X10^3/uL (2.7-7.7); Neutrophil % 62.6 % (47-70); Platelet Count 343 K/mm3 (150-450); RBC Distribution Width CV 14.4 % (11.6-14.6); RBC Distribution Width SD 43.3 fl (35.1-43.9); Red Blood Count 4.32 M/mm3 (4.2-5.4); White Blood Count 8.2 K/mm3 (4.4-11.0)
[2022-10-16 12:49] LABS: CRP < 2.90 mg/L (0.0-3.0)
== END | disposition home or self-care (01) ==
LOC: LAB 11:18
PROVIDERS: PCP Internal Medicine; Referring Provider Orthopaedic Surgery; Visit Provider Orthopaedic Surgery
DX: T84.012A Broken internal right knee prosthesis, initial encounter (principal)
CPT/HCPCS: 36415; 85025; 85652; 86140

== ENCOUNTER → 2022-10-24 | Outpatient (CLI) | payer MEDICARE, OTHER, SELFPAY ==
[2022-10-24 12:59] LABS: Vitamin B12 992 pg/mL (211-911)
[2022-10-24 13:35] LABS: Ferritin 6 ng/mL (8-252); Iron 42 ug/dL (50-170); Iron Binding Capacity,Total 519 ug/dL (250-450)
== END | disposition home or self-care (01) ==
LOC: BIMLAB 09:59
PROVIDERS: PCP Internal Medicine; Referring Provider Internal Medicine; Visit Provider Internal Medicine
DX: D64.9 Anemia, unspecified (principal)
CPT/HCPCS: 36415; 82607; 82728; 82746; 83540; 83550

== ENCOUNTER → 2023-03-04 | Outpatient (CLI) | payer MEDICARE, OTHER, SELFPAY ==
--- NOTE | 2023-03-04 07:45 | MRI_ITS ---
STUDY: MRI LUMBAR SPINE WITHOUT CONTRAST REASON FOR EXAM: Female, 73 years old. STENOSIS TECHNIQUE: Standardized fat and water weighted pulse sequences were obtained in the sagittal and axial planes. COMPARISON: None FINDINGS: T12-L1: Normal endplates. Normal disc height, hydration and morphology. Normal bilateral facet joints. Normal central canal and bilateral lateral recesses. Normal bilateral intervertebral neural foramina. Normal lumbar lordosis. There is a levoscoliosis of the lumbar spine. Normal conus medullaris that terminates at the T12 level. L1-2: Mild spurring. Mild facet spurring. No canal stenosis. Neural foramina are patent. L2-3: Mild spurring. Mild facet spurring. No canal stenosis. Neural foramina are patent. L3-4: Mild spurring. Mild facet spurring. No canal stenosis. Neural foramina are patent. L4-5: Disc space narrowing. Disc bulging and spurring with left paracentral disc protrusion, series 8 image 03/24. Facet spurring and ligamentum flavum hypertrophy. Moderate canal stenosis. Bilateral foraminal narrowing L5-S1: Disc bulge. Facet spurring. No canal stenosis. Mild left foraminal narrowing. Normal visualized sacral ala. Normal visualized paraspinous soft tissue structures. MRI/Spine Lumbar (Routine) IMPRESSION: Scoliosis and degenerative change. Disc herniation at L4-5 with canal stenosis and foraminal narrowing. Electronically Signed: Carlton Sebastian MD at 23:47 EDT ,
== END | disposition home or self-care (01) ==
PROVIDERS: PCP Internal Medicine
DX: M54.40 Lumbago with sciatica, unspecified side (principal)
CPT/HCPCS: 72148

== ENCOUNTER → 2023-03-27 | Outpatient (CLI) | payer MEDICARE, SELFPAY ==
[2023-03-27 16:35] LABS: Absolute Lymphocyte Count 2.42 X10^3/uL (0.83-4.51); Basophil# 0.03 X10^3/uL; Basophil% 0.3 % (0-1); Eosinophil# 0.28 X10^3/uL; Hematocrit 38.5 % (37-47); Hemoglobin 12.5 g/dL (12.0-15.0); Lymphocyte # 2.42 X10^3/ul (0.83-4.51); Lymphocyte % 25.8 % (19-41); Mean Corp Hgb Conc 32.5 g/dL (32-36); Mean Corpuscular Hgb 28.7 pg (27.0-32.0); Mean Corpuscular Volume 88.3 fL (81-99); Mean Platelet Vol. 10.8 fl (6.2-12.0); Monocyte% 6.4 % (0-10); NRBC Flagged by Analyzer 0 % (0-5); Neutrophil % 64.1 % (47-70); Platelet Count 262 K/mm3 (150-450); RBC Distribution Width CV 14.1 % (11.6-14.6); RBC Distribution Width SD 45.1 fl (35.1-43.9); Red Blood Count 4.36 M/mm3 (4.2-5.4); White Blood Count 9.4 K/mm3 (4.4-11.0)
[2023-03-27 16:55] LABS: ALB/GLOB Ratio 0.9 RATIO (0.9-2.4); AST(SGOT) 17 U/L (15-37); Alanine Aminotransfer ALT/SGPT 24 U/L (13-56); Albumin, Serum 3.7 g/dL (3.2-5.0); Alkaline Phosphatase 72 U/L (45-117); Anion Gap 11 (5-15); BUN 21 mg/dL (7-18); BUN/Creat Ratio 16.3 RATIO (10-20); Calcium,Total 9.3 mg/dL (8.5-10.1); Chloride 107 mmol/L (98-107); Cholesterol 217 mg/dL (200); Creatinine, Serum 1.29 mg/dL (0.55-1.02); EST Glomerular Filtration Rate 43 mL/min (>60); Est Glom Filt Rate - Afr Amer 52 mL/min (>60); Glucose 69 mg/dL (74-106); High Density Lipoprotein 45 mg/dL; Potassium 3.7 mmol/L (3.5-5.1); Protein, Total 7.7 g/dL (6.4-8.2); Sodium Level 139 mmol/L (136-145); Triglycerides 194 mg/dL; Very Low Density Lipoprotein 39 mg/dL (5-40)
[2023-03-27 17:00] LABS: Microalbumin,Random Urine 91.6 mg/L (NO RANGE EST.); Microalbumin:Creatinine Ratio 61.1 mg/g CRE (<30 mg/g CRE)
== END | disposition home or self-care (01) ==
LOC: BIMLAB 14:38
PROVIDERS: PCP Internal Medicine; Referring Provider Internal Medicine; Visit Provider Internal Medicine
DX: E11.9 Type 2 diabetes mellitus without complications (principal); I10 Essential (primary) hypertension
CPT/HCPCS: 36415; 80053; 80061; 82043; 82570; 85025

== ENCOUNTER → 2023-06-29 | Outpatient (CLI) | payer MEDICARE, OTHER, SELFPAY ==
--- NOTE | 2023-06-29 09:55 | RAD_ITS ---
STUDY: X-RAY CHEST REASON FOR EXAM: Female, 73 years old. Pre operative TECHNIQUE: Single AP portable view of the chest. COMPARISON: 04/08/2016 FINDINGS: Status post left axillary lymph node dissection. The lungs are clear and expanded. There is no demonstrated pleural abnormality. Normal size heart. Normal mediastinum and vero. Normal visualized pulmonary arteries. Normal visualized aortic arch and descending thoracic aorta. There is a dextroscoliosis of the thoracic spine. Normal visualized ribs, clavicles, and shoulders. There is no demonstrated abnormality of the visualized soft tissue structures of the upper abdomen. RAD/Chest 1 View IMPRESSION: No active disease. Electronically Signed: Mc Willis MD at 17:21 EDT ,
[2023-06-29 12:10] LABS: Absolute Neutrophil Count 4.9 X10^3/uL (2.0-7.7); Basophil# 0.05 X10^3/uL; Basophil% 0.6 % (0-1); Eosinophil# 0.16 X10^3/uL; Eosinophils% 1.9 % (0-5); Hemoglobin 13.2 g/dL (12.0-15.0); Lymphocyte % 32.1 % (19-41); Mean Corp Hgb Conc 31.4 g/dL (32-36); Mean Corpuscular Hgb 28.2 pg (27.0-32.0); Mean Corpuscular Volume 89.7 fL (81-99); Mean Platelet Vol. 9.6 fl (6.2-12.0); Monocyte# 0.59 X10^3/uL; NRBC Flagged by Analyzer 0 % (0-5); Neutrophil # 4.86 X10^3/uL (2.7-7.7); Neutrophil % 57.9 % (47-70); Platelet Count 384 K/mm3 (150-450); RBC Distribution Width SD 42.3 fl (35.1-43.9); Red Blood Count 4.68 M/mm3 (4.2-5.4); White Blood Count 8.4 K/mm3 (4.4-11.0)
[2023-06-29 12:24] LABS: ALB/GLOB Ratio 0.9 RATIO (0.9-2.4); AST(SGOT) 13 U/L (15-37); Alanine Aminotransfer ALT/SGPT 24 U/L (13-56); Alkaline Phosphatase 78 U/L (45-117); Anion Gap 7 (5-15); BUN 21 mg/dL (7-18); BUN/Creat Ratio 22.7 RATIO (10-20); Calcium,Total 9.5 mg/dL (8.5-10.1); Chloride 104 mmol/L (98-107); Creatinine, Serum 0.92 mg/dL (0.55-1.02); EST Glomerular Filtration Rate 63 mL/min (>60); Est Glom Filt Rate - Afr Amer 76 mL/min (>60); Globulin 4.4 g/dL (2.2-4.2); Glucose 78 mg/dL (74-106); Potassium 4.3 mmol/L (3.5-5.1); Protein, Total 8.4 g/dL (6.4-8.2); Sodium Level 134 mmol/L (136-145)
[2023-06-29 13:51] LABS: Hemoglobin A1c 6.1 % (3.8-5.6)
== END | disposition home or self-care (01) ==
LOC: BIMLAB 08:47 → RAD 09:46
PROVIDERS: PCP Internal Medicine; Referring Provider Internal Medicine; Visit Provider Internal Medicine
DX: Z01.818 Encounter for other preprocedural examination (principal); E11.9 Type 2 diabetes mellitus without complications
CPT/HCPCS: 36415; 71045; 80053; 83036; 85025

== ENCOUNTER 2023-07-27 03:39 | Emergency (ER) | payer MEDICARE, OTHER, SELFPAY ==
[2023-07-27 03:40] VITALS: BP 174/89; PULSE 120; RESP 15; TEMP 35.5; O2SAT 100; BMI 28.2
--- NOTE | 2023-07-27 04:02 | EX.ED.DYSGE1 ---
HPI History of Present Illness Chief Complaint: Lower Extremity Injury Informant: patient Narrative Narrative: 2 weeks ago patient had microdiscectomy lumbar spine by Dr. C[facility]. She had sciatica down her left lower extremity prior to the surgery, and ever since her left lower extremity has been feeling much better. She has had episodes of dry heaving from time to time but she did after her last surgery in March as well. For the past 2 days she has had gradual onset of pain in her right hamstring. Sometimes it radiates down to the distal lower leg. She denies any weakness or numbness in the lower extremities. She denies having any back pain, and is actually due to follow-up with spine later today and approximately 11 hours to have reevaluation and eris removed. She states the incision has been doing well without any drainage. She did talk to her surgeon 2 days ago when this started about the pain. Patient states she is a nurse and her main reason for coming here tonight is to make sure this was not a blood clot, she did not want to wait 11 more hours without taking the appropriate treatment if it was. She denies any chest pain, shortness of breath, palpitations, lightheadedness, near-syncope, or syncope. No history of DVT or PE. She took OxyContin 3 to 4 hours ago and it did not help, she took 2 Tylenol prior to coming here but vomited them up. [facility] Medical History Abnormal mammogram of right breast Anemia Breast cancer Cervical radiculopathy Dermatitis Diabetes Flu vaccine need High cholesterol History of revision of total replacement of right knee joint HTN (hypertension) Left arm pain Left breast mass Osteoarthritis Postsurgical malabsorption Preoperative evaluation to rule out surgical contraindication Rash Varicose veins of left leg with edema 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 Home Medications compr.stocking,thigh,short,med #4 ea 02/15/21 [Rx Last Taken Unknown] blood sugar diagnostic (Blood Glucose Test strips) #100 ea 04/22/21 [Rx Last Taken Unknown] blood-glucose meter (Blood Glucose Monitoring kit) #1 ea 04/22/21 [Rx Last Taken Unknown] blood sugar diagnostic (Accu-Chek Guide test strips) #200 ea 10/28/21 [Rx Last Taken Unknown] lancets 17 gauge (Acti-Sid Lancets) #300 ea 11/05/21 [Rx Last Taken Unknown] ferrous sulfate 325 mg (65 mg iron) tablet 325 mg PO DAILY #90 tabs 10/24/22 [Rx Last Taken Unknown] ramipril 5 mg capsule See Rx Instructions .Route .COMPLEX #180 CAPSULES 03/06/23 [Rx Last Taken Unknown] hydrochlorothiazide 12.5 mg capsule See Rx Instructions .Route .COMPLEX #90 caps 03/16/23 [Rx Last Taken Unknown] metformin 1,000 mg tablet See Rx Instructions .Route .COMPLEX #180 tabs 03/16/23 [Rx Last Taken Unknown] potassium chloride 10 mEq tablet,extended release See Rx Instructions .Route .COMPLEX #90 tabs 03/16/23 [Rx Last Taken Unknown] cholecalciferol (vitamin D3) 1,250 mcg (50,000 unit) capsule See Rx Instructions .Route .COMPLEX #12 caps 04/09/23 [Rx Last Taken Unknown] cyanocobalamin (vitamin B-12) 1,000 mcg/mL injection solution See Rx Instructions .Route .COMPLEX #10 mL 07/10/23 [Rx Last Taken Unknown] glimepiride 2 mg tablet 2 mg PO QAM #90 tabs 07/10/23 [Rx Last Taken Unknown] Allergy/AdvReac Type Severity Reaction Status Date / Time prochlorperazine Allergy Other Verified 07/27/23 03:50 [From Compazine] NSAIDS (Non-Steroidal AdvReac Upset Verified 07/27/23 04:01 Anti-Inflamma Stomach Family History Mother Cancer Pancreatic cancer Diabetes Depression Sister Cancer Lung cancer Father Colon cancer Heart disease Myocardial infarction Hypertension CVA (cerebral vascular accident) Sister Cancer Kidney cancer Thyroid disorder Other Anxiety Surgical History (Updated 06/29/23 @ 08:10 by Kamilah Levi) H/O tubal ligation History of breast reconstruction History of cholecystectomy History of gastric bypass History of left cataract surgery History of partial mastectomy of left breast History of revision of total knee arthroplasty history of stomach surgery History Panniculectomy Social History Smoking Status: Never smoker second hand exposure: No alcohol intake: never what type of physical activity do you participate in: none ROS ROS ED Constitutional Constitutional ED: Denies chills or fever(s) Musculoskeletal Musculoskeletal: Reports extremity pain; Denies back pain or neck pain Integumentary Denies Abrasions, rash or wounds Neurologic Neurologic: Denies paresthesias or weakness EXAM Physical Exam Const Vital Signs: 07/27/23 03:40 Temperature 95.9 F L Temperature Source Temporal Pulse Rate 120 H Respiratory Rate 15 Blood Pressure 174/89 H Blood Pressure Mean 117 Pulse Ox 100 Oxygen Delivery Method Room Air Positive well nourished and well developed General Appearance ED: well developed and NAD Neck full ROM and supple GI normal to inspection, nondistended, normoactive bowel sounds and non-tender GI Narrative: No pulsatile mass Back/Spine normal ROM and normal to inspection Back/Spine Narrative: Well-healing midline lower back incision with eris intact, no evidence of dehiscence, discharge, abscess, cellulitis and no tenderness. No other back tenderness including sciatic notch and SI joint areas. Extremity Extremity Narrative: Full range of motion throughout both lower extremities. With performing ipsilateral right lower extremity straight leg raise, she does have increased pain in the proximal posterior thigh without radicular symptoms being reproduced. On further palpation, she is tender right at palpable proximal hamstring tendon, it seems just distal to the ischial tuberosity. There is no palpable cord other than the tendon, no distal edema, all compartments are soft and nondistended, she has faint pulses but they are palpable with brisk 2-second cap refill both sides. Neuro oriented x3, no focal motor deficits and no sensory deficits noted Neuro Narrative: 2+ right and left Achilles reflex, 2+ left patellar, 1+ right but patient has total knee arthroplasty here. Sensorium / Orientation: alert Psych mental status grossly normal and thought process normal Skin no wounds Rashes: no rashes MDM MDM MDM Narrative Medical decision making narrative: Patient presents at 4 AM when duplex venous ultrasound is not available but I reassured her I do not think she needs workup for DVT I do not think that is what this is. Furthermore obtaining a D-dimer will highly likely be elevated abnormally due to her recent surgery, and I do not think it is needed. She is comfortable with that, I offered him analgesics, she is amenable to that as well as some Phenergan orally, and if feeling better we will discharge her home to follow-up with spine as scheduled later today. After discussing with the patient she is in agreement that this is likely 1 of 2 different things: Nerve irritation as a result of her recent surgery, or musculoskeletal hamstring discomfort as a result of her restricted motions that she is trying to compensate for recently. After the morphine, she is feeling much, much better and ambulating without any difficulty. She is comfortable with being discharged and following up as scheduled. Discharge Plan Triage Chief Complaint: Lower Extremity Injury ED Provider: Carlton Gutierrez Dx/Rx/DC Orders Clinical Impression: Musculoskeletal pain of right thigh Instructions: ED Tendonitis Prescriptions: No Action (DME) compr.stocking,thigh,short,med Misc See Rx Instructions .ROUTE .MEDSUPPLY Qty: 4 0RF Rx Instructions: As directed (DME) Accu-Chek Guide test strips Strip See Rx Instructions .ROUTE .MEDSUPPLY Qty: 200 3RF Rx Instructions: check blood glucose 3x daily as directed (DME) blood-glucose meter [Blood Glucose Monitoring] Kit See Rx Instructions .ROUTE .MEDSUPPLY Qty: 1 0RF Rx Instructions: Check daily (DME) Blood Glucose Test Strip See Rx Instructions .ROUTE .MEDSUPPLY Qty: 100 3RF Rx Instructions: Check daily (DME) Acti-Sid Lancets 17 gauge misc See Rx Instructions .ROUTE .MEDSUPPLY Qty: 300 2RF Rx Instructions: Check 3x daily ferrous sulfate 325 mg (65 mg iron) tablet 325 mg PO DAILY Qty: 90 3RF ramipril 5 mg capsule See Rx Instructions .ROUTE .COMPLEX Qty: 180 1RF Dose Instruction: Take 1 capsule by mouth twice daily Rx Instructions: Take 1 capsule by mouth twice daily metformin 1,000 mg tablet See Rx Instructions .ROUTE .COMPLEX Qty: 180 3RF Dose Instruction: Take 1 tablet by mouth twice daily Rx Instructions: Take 1 tablet by mouth twice daily potassium chloride 10 mEq tablet extended release See Rx Instructions .ROUTE .COMPLEX Qty: 90 3RF Dose Instruction: Take 1 tablet by mouth once daily Rx Instructions: Take 1 tablet by mouth once daily hydrochlorothiazide 12.5 mg capsule See Rx Instructions .ROUTE .COMPLEX Qty: 90 3RF Dose Instruction: TAKE 1 CAPSULE BY MOUTH ONCE DAILY FOR BLOOD PRESSURE Rx Instructions: TAKE 1 CAPSULE BY MOUTH ONCE DAILY FOR BLOOD PRESSURE cholecalciferol (vitamin D3) 1,250 mcg (50,000 unit) capsule See Rx Instructions .ROUTE .COMPLEX Qty: 12 3RF Dose Instruction: Take 1 capsule by mouth once a week Rx Instructions: Take 1 capsule by mouth once a week cyanocobalamin (vitamin B-12) 1,000 mcg/mL solution See Rx Instructions .ROUTE .COMPLEX Qty: 10 6RF Dose Instruction: INJECT 1 ML (CC) INTRAMUSCULARLY EVERY TWO WEEKS FOR MALABSORPTION Rx Instructions: INJECT 1 ML (CC) INTRAMUSCULARLY EVERY TWO WEEKS FOR MALABSORPTION glimepiride 2 mg tablet 2 mg PO QAM Qty: 90 2RF Rx Instructions: administer with breakfast Primary Care Provider: Isidro Hester Referrals: Isidro Hester MD [Primary Care Provider] - Darin Covington MD [Non-Staff] - [facility] appointment Disposition Disposition: Home, Self Care
[2023-07-27] MEDS: Morphine 4 MG/ML Syringe IM (04:08)
[2023-07-27] MEDS: proMETHazine 25 MG Tablet PO (04:08)
== END 2023-07-27 04:36 | disposition home or self-care (01) ==
PROVIDERS: Emergency Provider Emergency Medicine; PCP Internal Medicine; Visit Provider Emergency Medicine
DX: M79.10 Myalgia, unspecified site (principal); E11.9 Type 2 diabetes mellitus without complications; I10 Essential (primary) hypertension; E78.00 Pure hypercholesterolemia, unspecified; Z79.899 Other long term (current) drug therapy; Z79.84 Long term (current) use of oral hypoglycemic drugs; Z90.49 Acquired absence of other specified parts of digestive tract; Z90.12 Acquired absence of left breast and nipple; Z96.659 Presence of unspecified artificial knee joint
CPT/HCPCS: 96372; 99282

== ENCOUNTER → 2023-10-16 | Outpatient (CLI) | payer MEDICARE, OTHER, SELFPAY ==
--- OUTSIDE RECORDS SUMMARY | 2023-10-16 09:31 | XMS RPT_ITS | CCD ---
Author Name Unknown Address [address] [place] [address] Organization [facility] Care Team Providers Care Contracts Officer Name Role Phone Isidro Hester MD Primary Care Provider [phone] ISIDRO HESTER Primary Care Unavailable CABRERA SCHULTZ Referring Unavailable ISIDRO HESTER Primary Care Unavailable ISIDRO HESTER Primary Care Unavailable Isidro Hester MD Primary Care Provider [phone] Allergies Allergy Classification Reported Allergen(s) Allergy Type Date of Onset Reaction(s) Facility (11 sources) Prochlorperazine; Translations: [PROCHLORPERAZINE EDISYLATE] Drug Allergy 04-02-2009 Itching [facility] Medications Current Medications Medication Drug Class(es) Dates Sig (Normalized) Sig (Original) amoxicillin 875 mg / clavulanate 125 mg oral tablet (1 source) Penicillin-class Antibacterial Start: 02-25-2022 End: 03-04-2022 take 1 tablet by mouth twice daily amoxicillin-clav ulanic acid (AUGMENTIN) 875-125 mg per tablet Indications: Bacterial sinusitis Take 1 tablet by mouth twice daily for 7 days. 14 tablet 0 02/25/2022 03/04/2022 Active Completed/Discontinued Medications Medication Drug Class(es) Dates Sig (Normalized) Sig (Original) ergocalciferol 1.25 mg oral capsule (10 sources) Provitamin D2 Compound take 1 capsule by mouth every week ergocalciferol 50,000 unit capsule (VITAMIN D2, DRISDOL) Take 50,000 Units by mouth one time a week. 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; Translations: [Malignant neoplasm of unspecified site of left female breast] Onset: 07-28-2011 Chronic Conditions associated with dizziness or vertigo (1 source) Vertigo; Translations: [Dizziness and giddiness] Episodic Diseases of white blood cells (20 sources) Neutropenia; Translations: [Neutropenia, unspecified] Onset: 10-16-2011 10-16-2011 Chronic Essential hypertension (10 sources) Essential hypertension; Translations: [Essential (primary) hypertension] Onset: 02-25-2017 02-25-2017 Chronic Nonmalignant breast conditions (2 sources) Mastodynia; Translations: [Mastodynia] Episodic Other screening for suspected conditions (not mental disorders or infectious disease) (20 sources) Mammography abnormal; Translations: [Other abnormal and inconclusive findings on diagnostic imaging of breast] Onset: 07-18-2011 07-18-2011 Episodic Other upper respiratory infections (1 source) Bacterial sinusitis; Translations: [Chronic sinusitis, unspecified] Chronic Past or Other Problems Problem Classification Problem Date Documented Da te Episodic/Chronic Deficiency and other anemia (10 sources) Anemia; Translations: [Anemia, unspecified] Onset: 9 04-02-2009 Episodic Other and unspecified benign neoplasm (10 sources) History of polyp of colon; Translations: [Personal history of colonic polyps] Onset: 5 02-15-2015 Episodic Other gastrointestinal disorders (10 sources) History of bypass of stomach; Translations: [Bariatric surgery status] Onset: 7 02-25-2017 Episodic Residual codes; unclassified (10 sources) Family history of malignant neoplasm of gastrointestinal tract; Translations: [Family history of malignant neoplasm of digestive organs] Onset: 9 04-02-2009 Episodic Residual codes; unclassified (10 sources) Pain; Translations: [Pain, unspecified] Onset: 2 06-04-2012 Episodic Results Test Name Value Interpretation Reference Range Facil ity Vital Signs Date Time Vital Sign Value Performing Clinician Francesco novoa 03-05-2023 19:15-0400 Body temperature 97.7 [degF] Amy Keita APRN.NEW CAR DRIVER Work Phone: [facility] 03-05-2023 19:15-0400 Body weight 68.95 kg Amy Keita EXERCISE PHYSIOLOGY PROFESSOR.NEW CAR DRIVER Work Phone: [facility] 03-05-2023 19:15-0400 Diastolic blood pressure 84 mm[Hg] Amy Keita EXERCISE PHYSIOLOGY PROFESSOR.NEW CAR DRIVER Work Phone: [facility] 03-05-2023 19:15-0400 Heart rate 70 /min Amy Keita EXERCISE PHYSIOLOGY PROFESSOR.NEW CAR DRIVER Work Phone: [facility] 03-05-2023 19:15-0400 Respiratory rate 16 /min Amy Keita EXERCISE PHYSIOLOGY PROFESSOR.NEW CAR DRIVER Work Phone: [facility] 03-05-2023 19:15-0400 SaO2% (BldA) [Mass fraction] 98 % Amy Keita EXERCISE PHYSIOLOGY PROFESSOR.NEW CAR DRIVER Work Phone: [facility] 03-05-2023 19:15-0400 Systolic blood pressure 136 mm[Hg] Amy Keita EXERCISE PHYSIOLOGY PROFESSOR.NEW CAR DRIVER Work Phone: [facility] 03-02-2023 07:16-0400 Body temperature 97.39 [degF] Chon Gagandeep EXERCISE PHYSIOLOGY PROFESSOR.NEW CAR DRIVER Work Phone: [facility] 03-02-2023 07:16-0400 Body weight 69.31 kg Chon Gagandeep EXERCISE PHYSIOLOGY PROFESSOR.NEW CAR DRIVER Work Phone: [facility] 03-02-2023 07:16-0400 Diastolic blood pressure 84 mm[Hg] Chon Gagandeep EXERCISE PHYSIOLOGY PROFESSOR.NEW CAR DRIVER Work Phone: [facility] 03-02-2023 07:16-0400 Heart rate 97 /min Chon Gagandeep EXERCISE PHYSIOLOGY PROFESSOR.NEW CAR DRIVER Work Phone: [facility] 03-02-2023 07:16-0400 Respiratory rate 18 /min Chon Gagandeep EXERCISE PHYSIOLOGY PROFESSOR.NEW CAR DRIVER Work Phone: [facility] 03-02-2023 07:16-0400 SaO2% (BldA) [Mass fraction] 99 % Chon Gagandeep EXERCISE PHYSIOLOGY PROFESSOR.NEW CAR DRIVER Work Phone: [facility] 03-02-2023 07:16-0400 Systolic blood pressure 120 mm[Hg] Chon Gagandeep EXERCISE PHYSIOLOGY PROFESSOR.NEW CAR DRIVER Work Phone: [facility] 02-25-2022 07:10-0400 Body temperature 97.59 [degF] Chon King EXERCISE PHYSIOLOGY PROFESSOR.NEW CAR DRIVER Work Phone: [facility] 02-25-2022 07:10-0400 Body weight 69.31 kg Chon Gagandeep EXERCISE PHYSIOLOGY PROFESSOR.NEW CAR DRIVER Work Phone: [facility] 02-25-2022 07:10-0400 Diastolic blood pressure 66 mm[Hg] Chon Gagandeep EXERCISE PHYSIOLOGY PROFESSOR.NEW CAR DRIVER Work Phone: [facility] 02-25-2022 07:10-0400 Heart rate 90 /min Chon King EXERCISE PHYSIOLOGY PROFESSOR.NEW CAR DRIVER Work Phone: [facility] 02-25-2022 07:10-0400 Respiratory rate 18 /min Chon Gagandeep EXERCISE PHYSIOLOGY PROFESSOR.NEW CAR DRIVER Work Phone: [facility] 02-25-2022 07:10-0400 SaO2% (BldA) [Mass fraction] 97 % Chon King EXERCISE PHYSIOLOGY PROFESSOR.NEW CAR DRIVER Work Phone: [facility] 02-25-2022 07:10-0400 Systolic blood pressure 118 mm[Hg] Chon King EXERCISE PHYSIOLOGY PROFESSOR.NEW CAR DRIVER Work Phone: [facility] 12-30-2021 09:49-0400 Body temperature 97.11 [degF] Josselin Bogner PA-C Work Phone: [facility] 12-30-2021 09:49-0400 Body weight 68.86 kg Josselin Bogner PA-C Work Phone: [facility] 12-30-2021 09:49-0400 Diastolic blood pressure 72 mm[Hg] Josselin Bogner PA-C Work Phone: [facility] 12-30-2021 09:49-0400 Heart rate 90 /min Josselin Bogner PA-C Work Phone: [facility] 12-30-2021 09:49-0400 Respiratory rate 18 /min Josselin Bogner PA-C Work Phone: [facility] 12-30-2021 09:49-0400 SaO2% (BldA) [Mass fraction] 99 % Josselin Bogner PA-C Work Phone: [facility] 12-30-2021 09:49-0400 Systolic blood pressure 108 mm[Hg] Josselin Bogner PA-C Work Phone: [facility] 12-10-2021 08:27-0400 Body height 158 cm Chanda Ocasio EXERCISE PHYSIOLOGY PROFESSOR.NEW CAR DRIVER Work Phone: [facility] 12-10-2021 08:27-0400 Body temperature 96.3 [degF] Chanda Ocasio EXERCISE PHYSIOLOGY PROFESSOR.NEW CAR DRIVER Work Phone: [facility] 12-10-2021 08:27-0400 Body weight 69.85 kg Chanda Ocasio EXERCISE PHYSIOLOGY PROFESSOR.NEW CAR DRIVER Work Phone: [facility] 12-10-2021 08:27-0400 Diastolic blood pressure 75 mm[Hg] Chanda Ocasio EXERCISE PHYSIOLOGY PROFESSOR.NEW CAR DRIVER Work Phone: [facility] 12-10-2021 08:27-0400 Heart rate 98 /min Chanda Bellenter EXERCISE PHYSIOLOGY PROFESSOR.NEW CAR DRIVER Work Phone: [facility] 12-10-2021 08:27-0400 SaO2% (BldA) [Mass fraction] 100 % Chanda Ocasio EXERCISE PHYSIOLOGY PROFESSOR.NEW CAR DRIVER Work Phone: [facility] 12-10-2021 08:27-0400 Systolic blood pressure 118 mm[Hg] Thornton Ocasio EXERCISE PHYSIOLOGY PROFESSOR.NEW CAR DRIVER Work Phone: [facility] Encounters Encounter Date Encounter Type Care Provider Facility Start: 03-25-2023 End: 03-25-2023 ambulatory ISIDRO HESTER Facility:[facility] Start: 03-25-2023 End: 03-25-2023 Subsequent hospital visit by physician Screen Mammo [facility] Mammogram Procedures Date Procedure Procedure Detail Performing Clinician Start: 03-25-2023 Screening digital br east tomosynthesis bi Cabrera A Antoine DO Work Phone: Start: 01-15-2022 Us breast uni real t jacquelyn with image limited Chanda Ocasio EXERCISE PHYSIOLOGY PROFESSOR.NEW CAR DRIVER Work Phone: Start: 01-15-2022 Mammography Chanda Bell enter EXERCISE PHYSIOLOGY PROFESSOR.NEW CAR DRIVER Work Phone: Start: 12-09-2021 Adult depression scr eening assessment Chanda Ocasio EXERCISE PHYSIOLOGY PROFESSOR.NEW CAR DRIVER Work Phone: Start: 02-22-2021 Mammography Chanda Bell enter EXERCISE PHYSIOLOGY PROFESSOR.NEW CAR DRIVER Work Phone: Start: 04-03-2020 Colonoscopy Chanda Bell enter EXERCISE PHYSIOLOGY PROFESSOR.NEW CAR DRIVER Work Phone: Start: 06-02-2016 Lipid 1996 panel - S earlene or Plasma Screen Wstr Start: 03-13-2015 Colonoscopy Josselin Mejias PA-C Work Phone: Plan of Treatment Date Care Activity Detail Author Start: 04-03-2025 Colonoscopy COLONOSCOPY [facility] Start: 04-03-2025 COLORECTAL CANCER SCREENING COLORECTAL CANCER SCREENING [facility] Start: 12-30-2024 DIABETES SCREEN DIABETES SCREEN [facility] Start: 12-30-2024 Diabetes Screening Diabetes Screening [facility] Start: 03-25-2024 Mammography Mammogram Screening [facility] Start: 05-01-2023 Influenza vaccination [facility] Start: 02-25-2023 BP CONTROLLED (<130/80) BP CONTROLLED (<130/80) [facility] Start: 01-15-2023 Mammography MAMMOGRAM [facility] Start: 12-30-2022 BP CONTROLLED (<130/80) BP CONTROLLED (<130/80) [facility] Start: 12-10-2022 BP CONTROLLED (<130/80) BP CONTROLLED (<130/80) [facility] Start: 12-09-2022 Adult depression screening assessment DEPRESSION SCREENING [facility] Start: 08-31-2022 ADVANCE DIRECTIVE DISCUSSION ADVANCE DIRECTIVE DISCUSSION [facility] Start: 08-31-2022 DEPRESSION ASSESSMENT DEPRESSION ASSESSMENT [facility] Start: 05-01-2022 Influenza vaccination INFLUENZA (Season Ended) [facility] Start: 02-22-2022 Mammography MAMMOGRAM [facility] Start: 08-31-2021 ADVANCE DIRECTIVE DISCUSSION ADVANCE DIRECTIVE DISCUSSION [facility] Start: 06-02-2021 Lipid 1996 panel - Serum or Plasma Lipid Screening [facility] Start: 06-02-2021 LIPID SCREEN LIPID SCREEN [facility] Start: 03-13-2020 Colonoscopy COLONOSCOPY [facility] Start: 03-13-2020 COLORECTAL CANCER SCREENING COLORECTAL CANCER SCREENING [facility] Start: 02-26-2020 DIABETES SCREEN DIABETES SCREEN [facility] Start: 02-25-2018 ANNUAL PCP TEAM CHRONIC DISEASE VISIT ANNUAL PCP TEAM CHRONIC DISEASE VISIT [facility] Start: 2009 RSV Vaccine (1 - 1-dose 60+ series) RSV Vaccine (1 - 1-dose 60+ series) [facility] Start: 1999 SHINGRIX VACCINE (1 of 2) SHINGRIX VACCINE (1 of 2) [facility] Start: 1994 COLOGUARD (FIT-DNA) COLOGUARD (FIT-DNA) [facility] Start: [address] COLONOGRAPHY [facility] Start: 1994 FECAL OCCULT BLOOD FECAL OCCULT BLOOD [facility] Start: 1994 SIGMOIDOSCOPY SIGMOIDOSCOPY [facility] Start: 02-08-1968 SHINGRIX VACCINE (1 of 2) SHINGRIX VACCINE (1 of 2) [facility] Start: 02-08-1968 Urine microalbumin profile [facility] Start: 1967 ANNUAL PCP TEAM CHRONIC DISEASE VISIT ANNUAL PCP TEAM CHRONIC DISEASE VISIT [facility] Start: 1967 BP CONTROLLED (<130/80) BP CONTROLLED (<130/80) [facility] Start: 1967 HEPATITIS C SCREENING HEPATITIS C SCREENING [facility] Start: 1961 COVID-19 VACCINE (1) COVID-19 VACCINE (1) [facility] Start: 1955 Pneumococcal Vaccine: 65+ (1 - PCV) Pneumococcal Vaccine: 65+ (1 - PCV) [facility] Start: 1955 PNEUMOCOCCAL: 65+ (1 - PCV) PNEUMOCOCCAL: 65+ (1 - PCV) [facility] Start: 1954 COVID-19 VACCINE (#1) COVID-19 VACCINE (#1) [facility] Start: 1949 COVID-19 VACCINE (#1) COVID-19 VACCINE (#1) [facility] End: 01-09-2023 Diagnostic mammography computer-aided detcj bi [facility] Radiology Routine Invasive ductal carcinoma of left breast in female (HCC) Breast pain, left 1 Occurrences starting 12/10/2021 until 01/09/2023 [facility] Work Phone: Immunizations Immunization Date Immunization Notes Care Provider Jovanny terrell 10-23-2016 influenza virus vacc ine, unspecified formulation Screen Wstr [facility] Payers Date Payer Category Payer Unknown HOSPITAL/MEDICAL GENERIC MEDICAL GENERIC [id number] 2020-Present [phone] [address] [address] [place] [address] Indemnity [id number] 2020 Unknown [id number] 2020 Unknown [id number] 2014 Medicare MEDICARE MEDICAR E A AND B [id number] 2014-Present [phone] [place] [address] Medicare [id number] 2014 Medicare MEDICARE MEDICAR E A AND B [id number] 2014-Present [phone] [place] [address] Medicare [id number] 2014 Medicare [id number] Social History Date Type Detail Facility Start: 03-02-2023 Tobacco smoking stat us VAIS Never smoked tobacco [facility] Start: 12-10-2021 End: 03-05-2023 Alcohol intake Current non-drinker of alcohol (finding) [facility] Start: 1950 Sex Assigned At Female [facility] Start: 11-30-2021 End: 02-25-2022 Exposure to SARS-CoV-2 (event) Not sure [facility] Start: 03-02-2023 Tobacco use and exposure Smoke less tobacco non-user [facility] Start: 03-05-2023 End: 03-25-2023 History of Social function [facility] Start: 03-05-2023 End: 03-25-2023 Tobacco use panel [facility] Adult Depression Screening Assessment 2 [facility] Start: 02-21-2021 Gender identity Identifies as female gender (finding) [facility] Start: 12-03-2021 Sexual orientation Heterosexual (fin ding) [facility] Clinical Notes 12-10-2021 to 03-25-2023 Italia Everett RT(R) - 03/25/2023 12:50 PM EDTAmy Keita APRN.NEW CAR DRIVER - 03/05/2023 7:20 PM EDTChon Donis APRN.[facility] - 03/02/2023 7:37 AM EDT Note Date & Type Note Facility 03-25-2023 Note HNO ID: [id number] Author: Italia Everett RT(R) Service: ? Author Type: Drilling Plant Operator Type: Progress Notes Filed: 03/25/2023 12:55 PM Note Text: Radiology Service Progress Note PATIENT NAME: Laura Gonsales DATE OF SERVICE: March 25, 2023 TIME: 12:55 PM PATIENT IDENTITY VERIFICATION COMPLETED USING TWO (2) IDENTIFIERS: Name and Date of confirmed by patient verbally. FALL SCREENING: Has the patient had 2 falls in the last year or 1 fall with injury or currently using an Ambulatory Assistive Device (Walker, Cane, Wheelchair, Crutches, etc.)? No PATIENT GENDER DATA: Female. status: : No status: NO. PATIENT RELEVANT IMPLANT DATA REVIEWED: Not Applicable RADIOLOGY DEPARTMENT: Mammography PERIPHERAL IV DATA: Not applicable SIGNED BY: RT Mel(R) March 25, 2023 12:55 PM [facility] 03-25-2023 History of Presen t illness Narrative Radiology Service Progress Note PATIENT NAME: Laura Gonsales DATE OF SERVICE: March 25, 2023 TIME: 12:55 PM PATIENT IDENTITY VERIFICATION COMPLETED USING TWO (2) IDENTIFIERS: Name and Date of confirmed by patient verbally. FALL SCREENING: Has the patient had 2 falls in the last year or 1 fall with injury or currently using an Ambulatory Assistive Device (Walker, Cane, Wheelchair, Crutches, etc.)? No PATIENT GENDER DATA: Female. status: : No status: NO. PATIENT RELEVANT IMPLANT DATA REVIEWED: Not Applicable RADIOLOGY DEPARTMENT: Mammography PERIPHERAL IV DATA: Not applicable SIGNED BY: RT Mel(R) March 25, 2023 12:55 PM documented in this encounter [facility] 03-05-2023 Note HNO ID: [id number] Author: Amy Keita APRN.NEW CAR DRIVER Service: ? Author Type: Nurse Practitioner Type: Progress Notes Filed: 03/05/2023 7:38 PM Note Text: This note was created using NoteWriter. Subjective Laura Gonsales is a 73 year old female. 73 year old female with PMH DM, HTN, and anemia presents with complaints of rash. Acute onset one week ago Locates a red, raised itchy rash to trunk area Seen here on 03/02/23, placed on Prednisone taper along with topical steroid cream and has been taking Benadryl States that the rash seems to be worsening. Spreading and I am itching myself to Denies fever or chills. Denies URI sx Denies malaise or fatigue Denies new lotions, soaps, or medicines Endorses last week she was outside working in the yard. Has air conditioning Endorses similar occurrence in the past with working out in the yard And it was just as bad as this The history is provided by the patient. No concrete block plant supervisor was used. Rash This is a new problem. The current episode started in the past 7 days. The problem is unchanged. The rash is diffuse. The rash is characterized by itchiness and redness. She was exposed to plant contact. Pertinent negatives include no anorexia, congestion, cough, diarrhea, eye pain, facial edema, fatigue, fever, joint pain, nail changes, rhinorrhea, shortness of breath, sore throat or vomiting. Treatments tried: see HPI. The treatment provided no relief. Her past medical history is significant for allergies. There is no history of asthma, eczema or varicella. PAST MEDICAL HISTORY Diagnosis Date Diverticulosis Iron deficiency anemia, unspecified Malignant neoplasm of breast (female), unspecified site 2010 LEFT PAST SURGICAL HISTORY Procedure Laterality Date ARTHRP KNE CONDYLEANDPLATU MEDIALANDLAT COMPARTMENTS Right 10/15 Knee replacement, total BX BREAST W/DEVICE 1ST LESION ULTRASOUND GUID Right 08/07/16 U/S core bx right inframammary x 2 BX/EXC LYMPH NODE OPEN DEEP AXILLARY NODE 08-06-2011 LEFT CHOLECYSTECTOMY 2002 with gastric bypass COLONOSCOPY FLX DX W/COLLJ SPEC WHEN PFRMD 12/2001 Colonoscopy COLONOSCOPY FLX DX W/COLLJ SPEC WHEN PFRMD 05/09/09 Colonoscopy COLONOSCOPY FLX DX W/COLLJ SPEC WHEN PFRMD 03-13-15 ESOPHAGOGASTRODUODENOSCOPY TRANSORAL DIAGNOSTIC 12/2001 EGD GASTRIC BYPASS 05/26/2003 LAPAROSCOPIC APPENDECTOMY 2002 with gastric bypass LIG/TRNSXJ FLP TUBE ABDL/VAG APPR UNI/BI Tubal ligation LIG/TRNSXJ FLP TUBE ABDL/VAG APPR UNI/BI about 20 years ago LUMPECTOMY/RADIOTHERAPY DIAG MAMM/A10 1987 benign MASTECTOMY, PARTIAL 08-06-11 LEFT PAST SURGICAL HISTORY OF 10/2015 [facility] body surgery REDUCTION OF LARGE BREAST STEREO LOC FOR CORE BRST BX LT 07-21-11 ALLERGIES Compazine [Prochlorperazine Edisylate] MEDICATIONS famotidine (PEPCID) 20 mg tablet Take 1 tablet by mouth once daily. hydrOXYzine HCl (ATARAX) 25 mg tablet Take 1 tablet by mouth three times daily as needed for anxiety. FEROSUL 325 mg (65 mg iron) tablet Take 1 tablet by mouth once daily. predniSONE (DELTASONE) 10 mg tablet Take 4 tabs daily for 3 days, then 2 tabs daily for 3 days, then 1 tab daily for 3 days with food. triamcinolone acetonide (KENALOG) 0.1 % cream Apply 1 application to affected area three times daily for 10 days. Apply sparingly to area for rash/itching. meclizine (ANTIVERT) 12.5 mg tab Take 1-2 tablets by mouth every 6 hours as needed (dizziness). (Patient not taking: Reported on 03/02/2023) glimepiride (AMARYL) 2 mg tablet 2 mg once daily. potassium chloride (K-TAB) 10 mEq tablet Take 10 mEq by mouth once daily. letrozole (FEMARA) 2.5 mg tablet Take 1 tablet by mouth once daily (Patient not taking: Reported on 03/02/2023) ergocalciferol 50,000 unit capsule (VITAMIN D2, DRISDOL) Take 50,000 Units by mouth one time a week. metFORMIN (GLUCOPHAGE) 1,000 mg tablet Take 1,000 mg by mouth twice daily. escitalopram oxalate (LEXAPRO) 5 mg tablet Take 5 mg by mouth once daily. rosuvastatin (CRESTOR) 5 mg tablet Take 5 mg by mouth once daily. cyanocobalamin (VITAMIN B-12) 1,000 mcg/mL soln Inject 1 mL intramuscularly as directed. every 2 weeks Hydrochlorothiazide 12.5 mg capsule Take 12.5 mg by mouth once daily. FAMILY HISTORY Problem Relation Age of Onset Cancer Sister rectal, kidney Colon Cancer Father Ischemic Heart Disease Father Hypertension Father Diabetes Mother Diabetes Father Stroke Father Cancer Mother pancreatic cancer Cancer Sister medullary carcinoma of thyroid Hypertension Mother Psychiatry Sister Social History Tobacco Use Smoking status: Never Smokeless tobacco: Never Vaping Use Vaping Use: Never used Substance Use Topics Alcohol use: No Drug use: No Review of Systems Constitutional: Negative for fatigue and fever. HENT: Negative for congestion, rhinorrhea and sore throat. Eyes: Negative for pain. Respiratory: Negative for cough and shortnes (more content not included)... [facility] 03-05-2023 History of Presen t illness Narrative This note was created using Atticousriter. Subjective Laura Gonsales is a 73 year old female. 73 year old female with PMH DM, HTN, and anemia presents with complaints of rash. Acute onset one week ago Locates a red, raised itchy rash to trunk area Seen here on 03/02/23, placed on Prednisone taper along with topical steroid cream and has been taking Benadryl States that the rash seems to be worsening. Spreading and I am itching myself to Denies fever or chills. Denies URI sx Denies malaise or fatigue Denies new lotions, soaps, or medicines Endorses last week she was outside working in the yard. Has air conditioning Endorses similar occurrence in the past with working out in the yard And it was just as bad as this The history is provided by the patient. No concrete block plant supervisor was used. Rash This is a new problem. The current episode started in the past 7 days. The problem is unchanged. The rash is diffuse. The rash is characterized by itchiness and redness. She was exposed to plant contact. Pertinent negatives include no anorexia, congestion, cough, diarrhea, eye pain, facial edema, fatigue, fever, joint pain, nail changes, rhinorrhea, shortness of breath, sore throat or vomiting. Treatments tried: see HPI. The treatment provided no relief. Her past medical history is significant for allergies. There is no history of asthma, eczema or varicella. PAST MEDICAL HISTORY Diagnosis Date Diverticulosis Iron deficiency anemia, unspecified Malignant neoplasm of breast (female), unspecified site 2010 LEFT PAST SURGICAL HISTORY Procedure Laterality Date ARTHRP KNE CONDYLE&PLATU MEDIAL&LAT COMPARTMENTS Right 10/15 Knee replacement, total BX BREAST W/DEVICE 1ST LESION ULTRASOUND GUID Right 08/07/16 U/S core bx right inframammary x 2 BX/EXC LYMPH NODE OPEN DEEP AXILLARY NODE 08-06-2011 LEFT CHOLECYSTECTOMY 2002 with gastric bypass COLONOSCOPY FLX DX W/COLLJ SPEC WHEN PFRMD 12/2001 Colonoscopy COLONOSCOPY FLX DX W/COLLJ SPEC WHEN PFRMD 05/09/09 Colonoscopy COLONOSCOPY FLX DX W/COLLJ SPEC WHEN PFRMD 03-13-15 ESOPHAGOGASTRODUODENOSCOPY TRANSORAL DIAGNOSTIC 12/2001 EGD GASTRIC BYPASS 05/26/2003 LAPAROSCOPIC APPENDECTOMY 2002 with gastric bypass LIG/TRNSXJ FLP TUBE ABDL/VAG APPR UNI/BI Tubal ligation LIG/TRNSXJ FLP TUBE ABDL/VAG APPR UNI/BI about 20 years ago LUMPECTOMY/RADIOTHERAPY DIAG MAMM/A10 1987 benign MASTECTOMY, PARTIAL 08-06-11 LEFT PAST SURGICAL HISTORY OF 10/2015 [facility] surgery REDUCTION OF LARGE BREAST STEREO LOC FOR CORE BRST BX LT 07-21-11 ALLERGIES Compazine [Prochlorperazine Edisylate] MEDICATIONS famotidine (PEPCID) 20 mg tablet Take 1 tablet by mouth once daily. hydrOXYzine HCl (ATARAX) 25 mg tablet Take 1 tablet by mouth three times daily as needed for anxiety. FEROSUL 325 mg (65 mg iron) tablet Take 1 tablet by mouth once daily. predniSONE (DELTASONE) 10 mg tablet Take 4 tabs daily for 3 days, then 2 tabs daily for 3 days, then 1 tab daily for 3 days with food. triamcinolone acetonide (KENALOG) 0.1 % cream Apply 1 application to affected area three times daily for 10 days. Apply sparingly to area for rash/itching. meclizine (ANTIVERT) 12.5 mg tab Take 1-2 tablets by mouth every 6 hours as needed (dizziness). (Patient not taking: Reported on 03/02/2023) glimepiride (AMARYL) 2 mg tablet 2 mg once daily. potassium chloride (K-TAB) 10 mEq tablet Take 10 mEq by mouth once daily. letrozole (FEMARA) 2.5 mg tablet Take 1 tablet by mouth once daily (Patient not taking: Reported on 03/02/2023) ergocalciferol 50,000 unit capsule (VITAMIN D2, DRISDOL) Take 50,000 Units by mouth one time a week. metFORMIN (GLUCOPHAGE) 1,000 mg tablet Take 1,000 mg by mouth twice daily. escitalopram oxalate (LEXAPRO) 5 mg tablet Take 5 mg by mouth once daily. rosuvastatin (CRESTOR) 5 mg tablet Take 5 mg by mouth once daily. cyanocobalamin (VITAMIN B-12) 1,000 mcg/mL soln Inject 1 mL intramuscularly as directed. every 2 weeks Hydrochlorothiazide 12.5 mg capsule Take 12.5 mg by mouth once daily. FAMILY HISTORY Problem Relation Age of Onset Cancer Sister rectal, kidney Colon Cancer Father Ischemic Heart Disease Father Hypertension Father Diabetes Mother Diabetes Father Stroke Father Cancer Mother pancreatic cancer Cancer Sister medullary carcinoma of thyroid Hypertension Mother Psychiatry Sister Social History Tobacco Use Smoking status: Never Smokeless tobacco: Never Vaping Use Vaping Use: Never used Substance Use Topics Alcohol use: No Drug use: No Review of Systems Constitutional: Negative for fatigue and fever. HENT: Negative for congestion, rhinorrhea and sore throat. Eyes: Negative for pain. Respiratory: Negative for cough and shortness of breath. Gastrointestinal: Negative for anorexia, diarrhea and vomiting. Musculoskeletal: Negative for joint pain. Skin: Positive for rash. Negative for nail changes. Objective BP 136/84 Pulse 70 Temp 36.5 C (97.7 F) (Temporal) Resp 16 Wt 68.9 kg (152 lb) SpO2 98% BMI 27.62 kg/m Physical Exam Vitals and nursing note reviewed. Constitutional: General: She is not in acute distress. Appearance: Normal appearance. She is normal weight. She is not ill-appearing, toxic-appearing or diaphoretic. HENT: Head: Normocephalic and atraumatic. Right Ear: Ear canal and external ear normal. Left Ear: Ear canal and external ear normal. Nose: Nose normal. No congestion or rhinorrhea. Mouth/Throat: Mouth: Mucous membranes are moist. Pharynx: No oropharyngeal exudate or posterior oropharyngeal erythema. Eyes: General: Right eye: No discharge. Left eye: No discharge. Extraocular Movements: Extraocular movements intact. Conjunctiva/sclera: Conjunctivae normal. Pupils: Pupils are equal, round, and reactive to light. Cardiovascular: Rate and Rhythm: Normal rate and regular rhythm. Pulses: Normal pulses. Heart sounds: Normal heart sounds. No murmur heard. No friction rub. Pulmonary: Effort: Pulmonary effort is normal. No respiratory distress. Breath sounds: Normal breath sounds. No stridor. No wheezing, rhonchi or rales. Chest: Chest wall: No tenderness. Abdominal: General: Abdomen is flat. There is no distension. Palpations: Abdomen is soft. There is no mass. Tenderness: There is no abdominal tenderness. There is no right CVA tenderness, left CVA tenderness, guarding or rebound. Hernia: No hernia is present. Musculoskeletal: General: No swelling, tenderness, deformity or signs of injury. Normal range of motion. Cervical back: Normal range of motion and neck supple. No rigidity. Right lower leg: No edema. Left lower leg: No edema. Lymphadenopathy: Cervical: No cervical adenopathy. Skin: General: Skin is warm and dry. Coloration: Skin is not jaundiced or pale. Findings: Erythema and rash (diffuse prutitic raised macupapular rash in varying degree noted to trunk, bilateral upper and lower extremities and face) present. No bruising or lesion. Neurological: General: No focal deficit present. Mental Status: She is alert and oriented to person, place, and time. Cranial Nerves: No cranial nerve deficit. Sensory: No sensory deficit. Motor: No weakness. Coordination: Coordination normal. Gait: Gait normal. Psychiatric: Mood and Affect: Mood normal. Behavior: Behavior normal. Thought Content: Thought content normal. Judgment: Judgment normal. Assessment and Plan ASSESSMENT/PLAN: 1. Dermatitis - ICD9: 692.9, ICD10: L30.9 Greater than a week Endorses working in yard, similar occurrence in past Presents today related to itching so bad No red flags Hemodynamically stable - Oral Steriod tx -continue to finish the taper provided. - Anti itch therapy of Calomine lotion, Oatmeal baths, and Rx for Atarax recommended prn - discussed skin care of rash - follow up with PCP and or derm if symptoms persist or worsen. Amy Keita APRN.NEW [employer] documented in this encounter [facility] 03-02-2023 Note HNO ID: [id number] Author: Chon Donis APRN.NEW CAR DRIVER Service: ? Author Type: Nurse Practitioner Type: Progress Notes Filed: 03/02/2023 7:39 AM Note Text: Subjective HPI HPI Laura Gonsales is a 73 year old female who presents today for CC of itchy rash. This started 1 week ago. Has tried hydrocortisone cream. Symptoms are worsened by nothing. Risk factors hx of PI rash. .Patient presents with: Rash: Poison castillo x1 week PAST MEDICAL HISTORY Diagnosis Date Diverticulosis Iron deficiency anemia, unspecified Malignant neoplasm of breast (female), unspecified site 2011 LEFT PAST SURGICAL HISTORY Procedure Laterality Date ARTHRP KNE CONDYLEANDPLATU MEDIALANDLAT COMPARTMENTS Right 10/15 Knee replacement, total BX BREAST W/DEVICE 1ST LESION ULTRASOUND GUID Right 08/07/16 U/S core bx right inframammary x 2 BX/EXC LYMPH NODE OPEN DEEP AXILLARY NODE 08-06-2011 LEFT CHOLECYSTECTOMY 2002 with gastric bypass COLONOSCOPY FLX DX W/COLLJ SPEC WHEN PFRMD 12/2001 Colonoscopy COLONOSCOPY FLX DX W/COLLJ SPEC WHEN PFRMD 05/09/09 Colonoscopy COLONOSCOPY FLX DX W/COLLJ SPEC WHEN PFRMD 03-13-15 ESOPHAGOGASTRODUODENOSCOPY TRANSORAL DIAGNOSTIC 12/2001 EGD GASTRIC BYPASS 05/26/2003 LAPAROSCOPIC APPENDECTOMY 2002 with gastric bypass LIG/TRNSXJ FLP TUBE ABDL/VAG APPR UNI/BI Tubal ligation LIG/TRNSXJ FLP TUBE ABDL/VAG APPR UNI/BI about 20 years ago LUMPECTOMY/RADIOTHERAPY DIAG MAMM/A10 1987 benign MASTECTOMY, PARTIAL 08-06-11 LEFT PAST SURGICAL HISTORY OF 10/2015 [facility] surgery REDUCTION OF LARGE BREAST STEREO LOC FOR CORE BRST BX LT 07-21-11 ALLERGIES Compazine [Prochlorperazine Edisylate] MEDICATIONS FEROSUL 325 mg (65 mg iron) tablet Take 1 tablet by mouth once daily. glimepiride (AMARYL) 2 mg tablet 2 mg once daily. potassium chloride (K-TAB) 10 mEq tablet Take 10 mEq by mouth once daily. ergocalciferol 50,000 unit capsule (VITAMIN D2, DRISDOL) Take 50,000 Units by mouth one time a week. metFORMIN (GLUCOPHAGE) 1,000 mg tablet Take 1,000 mg by mouth twice daily. escitalopram oxalate (LEXAPRO) 5 mg tablet Take 5 mg by mouth once daily. rosuvastatin (CRESTOR) 5 mg tablet Take 5 mg by mouth once daily. cyanocobalamin (VITAMIN B-12) 1,000 mcg/mL soln Inject 1 mL intramuscularly as directed. every 2 weeks Hydrochlorothiazide 12.5 mg capsule Take 12.5 mg by mouth once daily. predniSONE (DELTASONE) 10 mg tablet Take 4 tabs daily for 3 days, then 2 tabs daily for 3 days, then 1 tab daily for 3 days with food. triamcinolone acetonide (KENALOG) 0.1 % cream Apply 1 application to affected area three times daily for 10 days. Apply sparingly to area for rash/itching. meclizine (ANTIVERT) 12.5 mg tab Take 1-2 tablets by mouth every 6 hours as needed (dizziness). (Patient not taking: Reported on 03/02/2023) letrozole (FEMARA) 2.5 mg tablet Take 1 tablet by mouth once daily (Patient not taking: Reported on 03/02/2023) FAMILY HISTORY Problem Relation Age of Onset Cancer Sister rectal, kidney Colon Cancer Father Ischemic Heart Disease Father Hypertension Father Diabetes Mother Diabetes Father Stroke Father Cancer Mother pancreatic cancer Cancer Sister medullary carcinoma of thyroid Hypertension Mother Psychiatry Sister Social History Tobacco Use Smoking status: Never Smokeless tobacco: Never Vaping Use Vaping Use: Never used Substance Use Topics Alcohol use: No Drug use: No Review of Systems Constitutional: Negative for chills and fever. Skin: Positive for itching and rash. Objective Blood pressure 120/84, pulse 97, temperature 36.3 ?C (97.4 ?F), resp. rate 18, weight 69.3 kg (152 lb 12.8 oz), SpO2 99 %. Physical Exam Constitutional: General: She is not in acute distress. Appearance: She is not toxic-appearing or diaphoretic. HENT: Head: Normocephalic and atraumatic. Skin: General: Skin is warm and dry. Findings: Rash present. Rash is papular and vesicular. Neurological: Mental Status: She is alert and oriented to person, place, and time. ASSESSMENT/PLAN: 1. Rhus dermatitis - ICD9: 692.6, ICD10: L25.5 - Oral Steriod tx -Prednisone taper - Topical steriod tx with Rx for steriod cream/ointment- see orders - discussed skin care of rash - follow up if symptoms persist or worsen. - PREDNISONE 10 MG TABLET - TRIAMCINOLONE ACETONIDE 0.1 % TOPICAL CREAM Chon Donis APRN.[facility] 03-02-2023 History of Presen t illness Narrative Images from the original note were not included. Subjective HPI HPI Laura Gonsales is a 73 year old female who presents today for CC of itchy rash. This started 1 week ago. Has tried hydrocortisone cream. Symptoms are worsened by nothing. Risk factors hx of PI rash. .Patient presents with: Rash: Poison castillo x1 week PAST MEDICAL HISTORY Diagnosis Date Diverticulosis Iron deficiency anemia, unspecified Malignant neoplasm of breast (female), unspecified site 2010 LEFT PAST SURGICAL HISTORY Procedure Laterality Date ARTHRP KNE CONDYLE&PLATU MEDIAL&LAT COMPARTMENTS Right 10/15 Knee replacement, total BX BREAST W/DEVICE 1ST LESION ULTRASOUND GUID Right 08/07/16 U/S core bx right inframammary x 2 BX/EXC LYMPH NODE OPEN DEEP AXILLARY NODE 08-06-2011 LEFT CHOLECYSTECTOMY 2002 with gastric bypass COLONOSCOPY FLX DX W/COLLJ SPEC WHEN PFRMD 12/2001 Colonoscopy COLONOSCOPY FLX DX W/COLLJ SPEC WHEN PFRMD 05/09/09 Colonoscopy COLONOSCOPY FLX DX W/COLLJ SPEC WHEN PFRMD 03-13-15 ESOPHAGOGASTRODUODENOSCOPY TRANSORAL DIAGNOSTIC 12/2001 EGD GASTRIC BYPASS 05/26/2003 LAPAROSCOPIC APPENDECTOMY 2002 with gastric bypass LIG/TRNSXJ FLP TUBE ABDL/VAG APPR UNI/BI Tubal ligation LIG/TRNSXJ FLP TUBE ABDL/VAG APPR UNI/BI about 20 years ago LUMPECTOMY/RADIOTHERAPY DIAG MAMM/A10 1987 benign MASTECTOMY, PARTIAL 08-06-11 LEFT PAST SURGICAL HISTORY OF 10/2015 [facility] surgery REDUCTION OF LARGE BREAST STEREO LOC FOR CORE BRST BX LT 07-21-11 ALLERGIES Compazine [Prochlorperazine Edisylate] MEDICATIONS FEROSUL 325 mg (65 mg iron) tablet Take 1 tablet by mouth once daily. glimepiride (AMARYL) 2 mg tablet 2 mg once daily. potassium chloride (K-TAB) 10 mEq tablet Take 10 mEq by mouth once daily. ergocalciferol 50,000 unit capsule (VITAMIN D2, DRISDOL) Take 50,000 Units by mouth one time a week. metFORMIN (GLUCOPHAGE) 1,000 mg tablet Take 1,000 mg by mouth twice daily. escitalopram oxalate (LEXAPRO) 5 mg tablet Take 5 mg by mouth once daily. rosuvastatin (CRESTOR) 5 mg tablet Take 5 mg by mouth once daily. cyanocobalamin (VITAMIN B-12) 1,000 mcg/mL soln Inject 1 mL intramuscularly as directed. every 2 weeks Hydrochlorothiazide 12.5 mg capsule Take 12.5 mg by mouth once daily. predniSONE (DELTASONE) 10 mg tablet Take 4 tabs daily for 3 days, then 2 tabs daily for 3 days, then 1 tab daily for 3 days with food. triamcinolone acetonide (KENALOG) 0.1 % cream Apply 1 application to affected area three times daily for 10 days. Apply sparingly to area for rash/itching. meclizine (ANTIVERT) 12.5 mg tab Take 1-2 tablets by mouth every 6 hours as needed (dizziness). (Patient not taking: Reported on 03/02/2023) letrozole (FEMARA) 2.5 mg tablet Take 1 tablet by mouth once daily (Patient not taking: Reported on 03/02/2023) FAMILY HISTORY Problem Relation Age of Onset Cancer Sister rectal, kidney Colon Cancer Father Ischemic Heart Disease Father Hypertension Father Diabetes Mother Diabetes Father Stroke Father Cancer Mother pancreatic cancer Cancer Sister medullary carcinoma of thyroid Hypertension Mother Psychiatry Sister Social History Tobacco Use Smoking status: Never Smokeless tobacco: Never Vaping Use Vaping Use: Never used Substance Use Topics Alcohol use: No Drug use: No Review of Systems Constitutional: Negative for chills and fever. Skin: Positive for itching and rash. Objective Blood pressure 120/84, pulse 97, temperature 36.3 C (97.4 F), resp. rate 18, weight 69.3 kg (152 lb 12.8 oz), SpO2 99 %. Physical Exam Constitutional: General: She is not in acute distress. Appearance: She is not toxic-appearing or diaphoretic. HENT: Head: Normocephalic and atraumatic. Skin: General: Skin is warm and dry. Findings: Rash present. Rash is papular and vesicular. Neurological: Mental Status: She is alert and oriented to person, place, and time. ASSESSMENT/PLAN: 1. Rhus dermatitis - ICD9: 692.6, ICD10: L25.5 - Oral Steriod tx -Prednisone taper - Topical steriod tx with Rx for steriod cream/ointment- see orders - discussed skin care of rash - follow up if symptoms persist or worsen. - PREDNISONE 10 MG TABLET - TRIAMCINOLONE ACETONIDE 0.1 % TOPICAL CREAM Chon Donis APRN.NEW CAR [employer]IVER documented in this encounter [facility] 02-25-2022 History of Presen t illness Narrative Subjective HPI HPI Laura Gonsales is a 72 year old female who presents today for CC of cough, congestion, sinus pressure, ear pressure. This started 6 days ago, sinus worse for past 2 days. Has tried otc medication without relief. Symptoms are worsened by nothing. Risk factors sick with similar symptoms currently. Denies cp/sob, n/v/d. Remote hx of breast cancer. .Patient presents with: Ear Pain: bilateral ear pain rated 3, x2 days cough, nasal congestion PAST MEDICAL HISTORY Diagnosis Date Diverticulosis Iron deficiency anemia, unspecified Malignant neoplasm of breast (female), unspecified site 2010 LEFT PAST SURGICAL HISTORY Procedure Laterality Date ARTHRP KNE CONDYLE&PLATU MEDIAL&LAT COMPARTMENTS Right 10/15 Knee replacement, total BX BREAST W/DEVICE 1ST LESION ULTRASOUND GUID Right 08/07/16 U/S core bx right inframammary x 2 BX/EXC LYMPH NODE OPEN DEEP AXILLARY NODE 08-06-2011 LEFT CHOLECYSTECTOMY 2002 with gastric bypass COLONOSCOPY FLX DX W/COLLJ SPEC WHEN PFRMD 12/2001 Colonoscopy COLONOSCOPY FLX DX W/COLLJ SPEC WHEN PFRMD 05/09/09 Colonoscopy COLONOSCOPY FLX DX W/COLLJ SPEC WHEN PFRMD 03-13-15 ESOPHAGOGASTRODUODENOSCOPY TRANSORAL DIAGNOSTIC 12/2001 EGD GASTRIC BYPASS 05/26/2003 LAPAROSCOPIC APPENDECTOMY 2002 with gastric bypass LIG/TRNSXJ FLP TUBE ABDL/VAG APPR UNI/BI Tubal ligation LIG/TRNSXJ FLP TUBE ABDL/VAG APPR UNI/BI about 20 years ago LUMPECTOMY/RADIOTHERAPY DIAG MAMM/A10 1987 benign MASTECTOMY, PARTIAL 08-06-11 LEFT PAST SURGICAL HISTORY OF 10/2015 [facility] body surgery REDUCTION OF LARGE BREAST STEREO LOC FOR CORE BRST BX LT 07-21-11 ALLERGIES Compazine [Prochlorperazine Edisylate] MEDICATIONS meclizine (ANTIVERT) 12.5 mg tab Take 1-2 tablets by mouth every 6 hours as needed (dizziness). glimepiride (AMARYL) 2 mg tablet 2 mg once daily. potassium chloride (K-TAB) 10 mEq tablet Take 10 mEq by mouth once daily. letrozole (FEMARA) 2.5 mg tablet Take 1 tablet by mouth once daily ergocalciferol 50,000 unit capsule (VITAMIN D2, DRISDOL) Take 50,000 Units by mouth one time a week. metFORMIN (GLUCOPHAGE) 1,000 mg tablet Take 1,000 mg by mouth twice daily. escitalopram oxalate (ESCITALOPRAM) 5 mg tablet Take 5 mg by mouth once daily. rosuvastatin (CRESTOR) 5 mg tablet Take 5 mg by mouth once daily. cyanocobalamin (VITAMIN B-12) 1,000 mcg/mL soln Inject 1 mL intramuscularly as directed. every 2 weeks Hydrochlorothiazide 12.5 mg capsule Take 12.5 mg by mouth once daily. FAMILY HISTORY Problem Relation Age of Onset Cancer Sister rectal, kidney Colon Cancer Father Ischemic Heart Disease Father Hypertension Father Diabetes Mother Diabetes Father Stroke Father Cancer Mother pancreatic cancer Cancer Sister medullary carcinoma of thyroid Hypertension Mother Psychiatry Sister Social History Tobacco Use Smoking status: Never Smoker Smokeless tobacco: Never Used Vaping Use Vaping Use: Never used Substance Use Topics Alcohol use: No Drug use: No Review of Systems Constitutional: Negative for fever. HENT: Positive for congestion, ear pain, sinus pain and sore throat. Negative for nosebleeds. Respiratory: Positive for cough. Negative for shortness of breath and wheezing. Cardiovascular: Negative for chest pain. Musculoskeletal: Negative for neck pain. Skin: Negative for itching and rash. Objective Blood pressure 118/66, pulse 90, temperature 36.4 C (97.6 F), resp. rate 18, weight 69.3 kg (152 lb 12.8 oz), SpO2 97 %. Component Latest Ref Rng & Units 12/30/2021 Glucose 74 - 99 mg/dL 105 (H) BUN 7 - 21 mg/dL 17 Creatinine 0.58 - 0.96 mg/dL 0.78 Sodium 136 - 144 mmol/L 135 (L) Potassium 3.7 - 5.1 mmol/L 4.3 Chloride 97 - 105 mmol/L 100 CO2 22 - 30 mmol/L 25 Anion Gap 9 - 18 mmol/L 10 Calcium 8.5 - 10.2 mg/dL 9.1 eGFR >=60 mL/min/1.73m 81 Physical Exam Constitutional: General: She is not in acute distress. Appearance: She is not toxic-appearing or diaphoretic. HENT: Head: Normocephalic and atraumatic. Right Ear: Hearing, ear canal and external ear normal. Tympanic membrane is bulging. Tympanic membrane is not perforated or erythematous. Left Ear: Hearing, ear canal and external ear normal. Tympanic membrane is bulging. Tympanic membrane is not perforated or erythematous. Nose: Right Sinus: Frontal sinus tenderness present. Left Sinus: Frontal sinus tenderness present. Cardiovascular: Rate and Rhythm: Normal rate and regular rhythm. Heart sounds: Normal heart sounds, S1 normal and S2 normal. Pulmonary: Effort: Pulmonary effort is normal. Breath sounds: Normal breath sounds. Lymphadenopathy: Cervical: No cervical adenopathy. Right cervical: No superficial cervical adenopathy. Left cervical: No superficial cervical adenopathy. Neurological: Mental Status: She is alert and oriented to person, place, and time. Gait: Gait is intact. ASSESSMENT/PLAN: 1. Bacterial sinusitis - ICD9: 473.9, 041.9, ICD10: J32.9, B96.89 - Will begin treatment with Augmentin 875 mg PO BID for 7 days - Supportive care with plenty of fluids, rest, and analgesia prn. - Follow up in 3-5 days if symptoms persist or worsen. Declines covid testing. - AMOXICILLIN 875 MG-POTASSIUM CLAVULANATE 125 MG TABLET Agrees to plan Declines avs Chon Donis APRN.ANH documented in this encounter [facility] 01-15-2022 Miscellaneous Notes Submitted recall letter for 1 YR OV*. Radha Wall Pt. Notified of results of mamm, f/u in 1 year. Pt. Voiced understanding. Juhi Elliott LPN Please inform pt. that her b/l dx mammogram looked good. OV in one year. Thank you. Chanda Ocasio APRN.ANH documented in this encounter [facility] 01-15-2022 History of Presen t illness Narrative Radiology Service Progress Note PATIENT NAME: Laura Gonsales DATE OF SERVICE: January 15, 2022 TIME: 11:33 AM PATIENT IDENTITY VERIFICATION COMPLETED USING TWO (2) IDENTIFIERS: Name and Date of confirmed by patient verbally. FALL SCREENING: Has the patient had 2 falls in the last year or 1 fall with injury or currently using an Ambulatory Assistive Device (Walker, Cane, Wheelchair, Crutches, etc.)? No PATIENT GENDER DATA: Female. status: : No status: NO. PATIENT RELEVANT IMPLANT DATA REVIEWED: Not Applicable RADIOLOGY DEPARTMENT: Mammography PERIPHERAL IV DATA: Not applicable SIGNED BY: Effie Figueroa Zoodak January 15, 2022 11:33 AM documented in this encounter [facility] 12-31-2021 Miscellaneous Notes Patient notified of results and provider's instructions. Patient verbalizes understanding. Radha Noel RN Left voicemail for patient to return call. Please let her know that her labs were within normal range, other than sodium was just slightly low. Recommend increasing sodium rich foods, broth. Please check to see how patient is feeling with vertigo. If any worsening symptoms, vomiting, severe HERNANDEZ, or new symptoms should seek care in ER as discussed at office visit. Otherwise f/u with ENT in 2 days if not resolving. Josselin Mejias PA-C 12/30/2021 documented in this encounter [facility] 12-30-2021 History of Presen t illness Narrative 12/30/2021 Patient presents with: Dizziness: x2 days, upset stomach SUBJECTIVE: This is a 71 year old that is here today for Complaint(s) of dizziness/vertigo x 2 days. Started on Thursday, better yesterday, and then noticed again this morning and noticed when she turned her head in bed this morning. Describes the whole room spun . + nausea, no vomiting. Slight HERNANDEZ per patient. Denies worst HERNANDEZ of life or abrupt onset. Denies vision changes, numbness/tingling, facial droop, slurred speech, weakness, paralysis. PMH DM, HTN, hyperlipidemia. Previous history of vertigo, but it's been a long time per patient. Denies ear pain. Right hear feels slightly full or plugged. PAST MEDICAL HISTORY Diagnosis Date Diverticulosis Iron deficiency anemia, unspecified Malignant neoplasm of breast (female), unspecified site 2010 LEFT ALLERGIES Compazine [Prochlorperazine Edisylate] MEDICATIONS Current Outpatient Medications Medication Sig glimepiride (AMARYL) 2 mg tablet 2 mg once daily. potassium chloride (K-TAB) 10 mEq tablet Take 10 mEq by mouth once daily. letrozole (FEMARA) 2.5 mg tablet Take 1 tablet by mouth once daily ergocalciferol 50,000 unit capsule (VITAMIN D2, DRISDOL) Take 50,000 Units by mouth one time a week. metFORMIN (GLUCOPHAGE) 1,000 mg tablet Take 1,000 mg by mouth twice daily. escitalopram oxalate (ESCITALOPRAM) 5 mg tablet Take 5 mg by mouth once daily. rosuvastatin (CRESTOR) 5 mg tablet Take 5 mg by mouth once daily. cyanocobalamin (VITAMIN B-12) 1,000 mcg/mL soln Inject 1 mL intramuscularly as directed. every 2 weeks Hydrochlorothiazide 12.5 mg capsule Take 12.5 mg by mouth once daily. No current facility-administered medications for this visit. SOCIAL HISTORY Social History Tobacco Use Smoking status: Never Smoker Smokeless tobacco: Never Used Vaping Use Vaping Use: Never used Substance Use Topics Alcohol use: No Drug use: No REVIEW OF SYSTEMS See HPI OBJECTIVE: BP 108/72 Pulse 90 Temp 36.2 C (97.1 F) Resp 18 Wt 68.9 kg (151 lb 12.8 oz) SpO2 99% BMI 27.58 kg/m APPEARANCE Well appearing, alert, in no acute distress, well-hydrated, well nourished. EYES PERRLA, conjunctiva and sclera normal. EARS External ears normal, canals clear. TMs normal CHIRAG, no erythema. Right TM with small effusion. NOSE/SINUS Nares normal. Septum midline. Mucosa normal. No drainage or sinus tenderness. THROAT normal, no erythema NECK Supple, no adenopathy; thyroid symmetric, normal size, no bruits HEART RRR with normal S1 and S2, LUNG clear to auscultation NEURO Awake, alert and oriented x 3, Cranial nerves II-XII grossly intact, Reflexes symmetrical, Normal gait and No involuntary motions. + Noy Hallpike to the right. Improved slightly to the left. ASSESSMENT/PLAN: 1. Vertigo - ICD9: 780.4, ICD10: R42 Suspect BPPV. Discussed other possible etiology with patient including central origin and signs of CVA/TIA. Reviewed red flags and when to seek care sooner in ER-patient agrees. Declines ER at this time. F/u with ENT in 2 days if not resolving, sooner if worsening. Neurologically intact at this time, symptoms related to movement, + Noy hallpike - MECLIZINE 12.5 MG TABLET - CONSULT TO ENT - BASIC METABOLIC PNL The patient indicates understanding of these issues and agrees with the plan. Josselin Mejias PA-C 12/30/2021 documented in this encounter [facility] 12-10-2021 History of Presen t illness Narrative Chief Complaint Patient presents with: Established Patient HPI: Laura Gonsales is a 71 year old female who presents here today for follow up breast cancer. Per Dr. Schultz's previous note: H/o abnormality in the left breast on screening mammogram in early July. She underwent further diagnostic imaging was found to have a 7 mm abnormality in the upper left breast. She underwent a biopsy which demonstrated an invasive ductal carcinoma. Underwent partial mastectomy with SLN sampling 08/06/11. Maximum tumor dimension of 0.8 cm to the surgical margin of 1.5 cm. This is invasive ductal carcinoma. Moderately differentiated. 2 sentinel lymph nodes are negative. ER is 59% , IL is 89% , HER-2/selena by FISH is not amplified. Oncotype DX recurrence score 29 (19% rate of recurrence with tamoxifen alone). Completed TC. Completed radiation 02/10/12. Started arimidex after radiation. Went off of AI for approx. one year. B/l breast recon. in [place]. Recovered well. Pt. was seen by Dr. Adrian for abnormal mamm b/l in January. B/l biopsy done-Neg. Pt. has had L shoulder pain x past 4 months. She has been evaluated by PCP/ortho-2 opinions. She has had PT, xrays, MRI and has had 2 injections-no relief. She started massage with some relief. I think I need a full body scan. My family doesn't know if it would be covered if she orders it. She wants me to ask you to order it. Appetite: Good. I've been watching. I need to get my HgbA1c down. Energy level: Good. Denies fever or recent illness. Resp:denies cough or sob Cardiac:denies chest pain/palpitations GI:denies abd pain h/o gastric bypass-n/v, moving bowels regularly :denies dysuria/hematuria Extrem:L shoulder pain as above Endo:denies hot flashes Neuro:denies numbness/tingling Skin:denies rashes/lesions Heme:denies bleeding The ROS is otherwise negative. Past medical history, appointments, medications, allergies reviewed. No changes. EXAM: BP 118/75 Pulse 98 Temp (!) 35.7 C (96.3 F) Ht 158 cm (5' 2.21 ) Wt 69.9 kg (154 lb) SpO2 100% BMI 27.98 kg/m APPEARANCE Well appearing, alert, in no acute distress, well-hydrated, well nourished. HEART RRR with normal S1 and S2, no murmurs LUNG clear to auscultation BREAST FEMALE b/l surgical scars, L radiation changes-outer tenderness, R lower/outer dense tissue stable LYMPH NODES No cervical lymphadenopathy, No supraclavicular lymphadenopathy and No axillary lymphadenopathy. ABDOMEN bowel sounds normoactive, soft, non-tender, non-distended, without organomegaly or palpable masses EXTREMITIES No edema NEURO Awake, alert and oriented x 3, Normal gait and No involuntary motions. SKIN Skin color, texture, turgor normal, no suspicious rashes or lesions ASSESSMENT/PLAN: 1. Invasive ductal carcinoma of left breast in female (HCC) - ICD9: 174.9, ICD10: C50.912 pT1b (8 mm; moderately diff) N0 MX ER/IL positive; HER2 non amplified by FISH invasive ductal carcinoma the left breast. Oncotype DX recurrence score 29 (19% rate of recurrence with tamoxifen alone). Data from the results suggested about 50% reduction in risk of recurrence with the use of CMF. Tolerated TC very well. - L lateral breast tenderness. - Completed 5 years of arimidex-tolerated well. - Tolerated femara well. Completed 10 years of AI therapy. - Discussed with pt. that a full body scan is not indicated at this time. She is having L shoulder pain-that has been imaged. Will request outside imaging from Ortho. She is also have L breast tenderness that will be imaged and then we will go from there. She no other symptoms. - B/l dx mammogram soon d/t L breast pain (bi-lateral due in January). - Follow up pending above. - Pt. aware to call office with any questions/concerns. The patient indicates understanding of these issues and agrees with the plan. All documentation from previous visit of 02/25/21-Dr. Schultz/myself was copied and pasted, documentation has been reviewed and edited as necessary for today's visit. Chanda Ocasio APRN.CNP documented in this encounter [facility] Diagnosis Vertigo- Primary Dizziness and giddiness [facility] Diagnosis Invasive ductal carcinoma of left breast in female (HCC) Breast pain, left Mastodynia [facility] Diagnosis Bacterial sinusitis- Primary Unspecified sinusitis (chronic) [facility] Diagnosis Rhus dermatitis- Primary Contact dermatitis and other eczema due to plants (except food) [facility] Diagnosis Dermatitis- Primary Contact dermatitis and other eczema, due to unspecified cause [facility] Diagnosis Encounter for screening mammogram for malignant neoplasm of breast Other screening mammogram [facility] Diagnostic Procedure Only (Routine) - Authorized Specialty Diagnoses / Procedures Referred By Alberto mario Referred To Contact [facility] Diagnoses Invasive ductal carcinoma of left breast in female (HCC) Breast pain, left Procedures US BREAST LTD LT US BREAST UNI REAL TIME WITH IMAGE LIMITED Chanda Ocasio APRN.CNP [address] [place] [address] [facility] [address] [place] [id number] Referral ID Status Reason Start Date Expiration Date Visits Requested Visits Authorized [id number] Authorized Auto-Generat ed Referral 12/10/2021 01/09/2023 1 1 * Diagnostic Procedure Only (Routine) - Authorized Specialty Diagnoses / Procedures Referred By Estebanac t Referred To Contact [facility] Diagnoses Invasive ductal carcinoma of left breast in female (HCC) Breast pain, left Procedures SPENCER DIAGNOSTIC BILAT DIAGNOSTIC MAMMOGRAPHY COMPUTER-AIDED DETCJ BI Chanda Ocasio APRN.NEW CAR DRIVER [address] [place] [address] [facility] [address] [place] [address] Referral ID Status Reason Start Date Expiration Date Visits Requested Visits Authorized [id number] Authorized Auto-Generat ed Referral 12/10/2021 01/09/2023 1 1 [facility] for referral (narrative)* Diagnostic Procedure Only (Routine) - Closed Specialty Diagnoses / Procedures Referred By Alberto mario Referred To Contact [facility] Diagnoses Invasive ductal carcinoma of left breast in female (HCC) Breast pain, left Procedures US BREAST LTD LT US BREAST UNI REAL TIME WITH IMAGE LIMITED Chanda Ocasio APRN.NEW [employer] DRIVER [address] [place] [address] [facility] [address] [place] [address] Referral ID Status Reason Start Date Expiration Date V isits Requested Visits Authorized [id number] Closed Auto-Generate d Referral 12/10/2021 01/09/2023 1 1 [facility] for referral (narrative)* Diagnostic Procedure Only (Routine) - Closed Specialty Diagnoses / Procedures Referred By Contac t Referred To Contact [facility] Diagnoses Encounter for screening mammogram for malignant neoplasm of breast Procedures SPENCER SCREENING W SHANEL SCREENING DIGITAL BREAST TOMOSYNTHESIS BI SCREENING MAMMOGRAPHY BI 2-VIEW BREAST INC Cabrera Bernstein DO [address] [place] [address] [facility] [address] [place] [address] Referral ID Status Reason Start Date Expiration Date V isits Requested Visits Authorized [id number] Closed Auto-Generate d Referral 03/24/2023 04/21/2024 1 1 [facility] for visit Narrative* Diagnostic Procedure Only (Routine) - Closed Specialty Diagnoses / Procedures Referred By Alberto t Referred To Contact [facility] Diagnoses Encounter for screening mammogram for malignant neoplasm of breast Procedures SPENCER SCREENING W SHANEL SCREENING DIGITAL BREAST TOMOSYNTHESIS BI SCREENING MAMMOGRAPHY BI 2-VIEW BREAST INC CAD Cabrera Schultz DO [address] [place] [address] [facility] [address] [place] [address] Referral ID Status Reason Start Date Expiration Date V isits Requested Visits Authorized [id number] Closed Auto-Generate d Referral 03/24/2023 04/21/2024 1 1 [facility] Reason for Referral Specialty Diagnoses / Procedures Referred By Alberto mario Referred To Contact Ent - Otolaryngology Diagnoses Vertigo Procedures CONSULT TO ENT OFFICE/OUTPATIENT [facility] MDM 60-74 MINUTES Josselin Mejias PA-C [address] [place] [address] Referral ID Status Reason Start Date Expiration Date Visits Requested Visits Authorized [id number] Authorized PCP Requested Referral 12/30/2021 12/30/2022 1 1 Summary Purpose Family History No Family History Records Found Advance Directives No Advanced Directives Records Found Additional Source Comments Source Comments (unrecognize d section and content) In the event this informatio n is protected by the Federal Confidentiality of Alcohol and Drug Abuse Patient Records regulations: The Federal rules restrict any use of the information to criminally investigate or prosecute any alcohol or drug abuse patient.[facility] the event this information is protected by the Federal Confidentiality of Alcohol and Drug Abuse Patient Records regulations: The Federal rules restrict any use of the information to criminally investigate or prosecute any alcohol or drug abuse patient.[facility] the event this information is protected by the Federal Confidentiality of Alcohol and Drug Abuse Patient Records regulations: The Federal rules restrict any use of the information to criminally investigate or prosecute any alcohol or drug abuse patient.[facility] the event this information is protected by the Federal Confidentiality of Alcohol and Drug Abuse Patient Records regulations: The Federal rules restrict any use of the information to criminally investigate or prosecute any alcohol or drug abuse patient.[facility] the event this information is protected by the Federal Confidentiality of Alcohol and Drug Abuse Patient Records regulations: The Federal rules restrict any use of the information to criminally investigate or prosecute any alcohol or drug abuse patient.[facility] the event this information is protected by the Federal Confidentiality of Alcohol and Drug Abuse Patient Records regulations: The Federal rules restrict any use of the information to criminally investigate or prosecute any alcohol or drug abuse patient.[facility] the event this information is protected by the Federal Confidentiality of Alcohol and Drug Abuse Patient Records regulations: The Federal rules restrict any use of the information to criminally investigate or prosecute any alcohol or drug abuse patient.[facility] the event this information is protected by the Federal Confidentiality of Alcohol and Drug Abuse Patient Records regulations: The Federal rules restrict any use of the information to criminally investigate or prosecute any alcohol or drug abuse patient.[facility] the event this information is protected by the Federal Confidentiality of Alcohol and Drug Abuse Patient Records regulations: The Federal rules restrict any use of the information to criminally investigate or prosecute any alcohol or drug abuse patient.[facility] the event this information is protected by the Federal Confidentiality of Alcohol and Drug Abuse Patient Records regulations: The Federal rules restrict any use of the information to criminally investigate or prosecute any alcohol or drug abuse patient.[facility] Reason for Visit (unrecogniz ed section and content) Reason Comments Dizziness x2 days, upset stoma ch Reason Comments Results Reason Comments Radiology Mammogram Specialty Diagnoses / Procedures Referred By Contac t Referred To Contact [facility] Diagnoses Invasive ductal carcinoma of left breast in female (HCC) Breast pain, left Procedures US BREAST LTD LT US BREAST UNI REAL TIME WITH IMAGE LIMITED Chanda Ocasio APRN.NEW [employer]IVER [address] [place] [address] [facility] [address] [place] [address] Referral ID Status Reason Start Date Expiration Date V isits Requested Visits Authorized [id number] Closed Auto-Generate d Referral 12/10/2021 01/09/2023 1 1 Reason Comments Ear Pain bilateral ear pain r ated 3, x2 days cough, nasal congestion Reason Comments Rash Poison castillo x1 week Reason Comments poison castillo Care Teams (unrecognized sec tion and content) Contracts Officer Relationship Specialty Start Date End Date Isidro Hester MD PCP - General Internal Medicine 01/05/18 Contracts Officer Relationship Specialty Start Date End Date Isidro Hester MD PCP - General Internal Medicine 01/05/18 Contracts Officer Relationship Specialty Start Date End Date Isidro Hester MD PCP - General Internal Medicine 01/05/18 Contracts Officer Relationship Specialty Start Date End Date Isidro Hester MD PCP - General Internal Medicine 01/05/18 Contracts Officer Relationship Specialty Start Date End Date Isidro Hester MD PCP - General Internal Medicine 01/05/18 Contracts Officer Relationship Specialty Start Date End Date Isidro Hester MD PCP - General Internal Medicine 01/05/18 Contracts Officer Relationship Specialty Start Date End Date Isidro Hester MD PCP - General Internal Medicine 01/05/18 Contracts Officer Relationship Specialty Start Date End Date Isidro Hester MD PCP - General Internal Medicine 01/05/18 INFORMATION SOURCE (unrecogn ized section and content) FOR RECORDS PERTAINING TO PATIENTS WHO ARE OR HAVE BEEN ENROLLED IN A CHEMICAL DEPENDENCY/SUBSTANCEABUSE PROGRAM, SOME INFORMATION MAY BE OMITTED. This clinical summary was aggregated from multiple sources. Caution should be exercised in using it in the provision of clinical care. This summary normalizes information from multiple sources, and as a consequence, information in this document may materially change the coding, format and clinical context of patient data. In addition, data may be omitted in some cases. CLINICAL DECISIONS SHOULD BE BASED ON THE PRIMARY CLINICAL RECORDS. [employer] [facility]. provides no warranty or guarantee of the accuracy or completeness of information in this document.
[2023-10-16 12:44] LABS: Vitamin B12 867 pg/mL (211-911); Vitamin D,25 Hydroxy 76.1 ng/mL
[2023-10-16 14:58] LABS: Anion Gap 8 (5-15); BUN 22 mg/dL (7-18); BUN/Creat Ratio 21.6 RATIO (10-20); Calcium,Total 9.7 mg/dL (8.5-10.1); Chloride 106 mmol/L (98-107); Creatinine, Serum 1.02 mg/dL (0.55-1.02); EST Glomerular Filtration Rate 56 mL/min (>60); Est Glom Filt Rate - Afr Amer 68 mL/min (>60); Glucose 134 mg/dL (74-106); Potassium 4.2 mmol/L (3.5-5.1); Sodium Level 138 mmol/L (136-145)
== END | disposition home or self-care (01) ==
LOC: BIMLAB 09:01
PROVIDERS: PCP Internal Medicine; Visit Provider Internal Medicine
DX: Z98.84 Bariatric surgery status (principal); K91.2 Postsurgical malabsorption, not elsewhere classified; I10 Essential (primary) hypertension
CPT/HCPCS: 36415; 80048; 82306; 82607

== ENCOUNTER → 2023-12-02 | Outpatient (CLI) | payer MEDICARE, OTHER, SELFPAY ==
--- NOTE | 2023-12-02 09:17 | BD_ITS ---
STUDY: DUAL ENERGY X-RAY ABSORPTIOMETRY / DXA REASON FOR EXAM: Female, 73 years old. Post menopausal TECHNIQUE: Bone Mineral Density (BMD) measurements of lumbar spine and bilateral hips were obtained. COMPARISON: Comparison is made with prior study dated February 28, 2021. FINDINGS: Lumbar Spine (L1-L4): g/cm2 (0.927) / T-score (-1.1) / Z-score (1.3) Findings are suggestive of osteopenia with a low fracture risk. Left Femur Total: g/cm2 (0.956) / T-score (0.1) / Z-score (1.9) Left Femoral Neck: g/cm2 (0.763) / T-score (-0.8) / Z-score (1.3) Right Femur Total: g/cm2 (0.864) / T-score (-0.6) / Z-score (1.1) Right Femoral Neck: g/cm2 (0.722) / T-score (-1.1) / Z-score (0.9) The T-Scores on the most recent prior examination were: Lumbar Spine (L1-L4): There has been worsening of bone density since the previous examination. Left Femur Total: which represents an improvement of 1.12. Right Femur Total: which represents a worsening of 6.1%. BD/Dexa Bone Density Study IMPRESSION: The patient is considered osteopenic as outlined below according to World Ruben Organization (WHO) criteria with a low fracture risk. There has been worsening of bone density since the previous examination. Reference Information: The T-score is the number of standard deviations above or below the standard which is normal for young adults at their peak bone mineral density. The World Health Organization (WHO) interprets the T-scores as follows: Above -1 Normal bone density Between -1 and -2.5 Osteopenia Equal to / or below -2.5 Osteoporosis As a practical clinical guideline, osteopenia may be graded as follows: Mild -1 through -1.5 Moderate -1.6 through -2.0 Severe -2.1 through -2.4 The Z-score is the number of standard deviations above or below age-matched controls. A Z-score of less than -1.5 would be considered abnormal. References: 1. NIH Osteoporosis and Related Bone Diseases www osteo.org 2. International Society for Clinical Densitometry www iscd.org 3. National Osteoporosis Foundation www nof.org Electronically Signed: Joe Trevino MD at 19:09 EDT ,
== END | disposition home or self-care (01) ==
LOC: OPBD 09:00
PROVIDERS: PCP Internal Medicine; Referring Provider Internal Medicine; Visit Provider Internal Medicine
DX: Z78.0 Asymptomatic menopausal state (principal)
CPT/HCPCS: 77080

== ENCOUNTER → 2024-02-10 | Outpatient (CLI) | payer MEDICARE, OTHER, SELFPAY ==
[2024-02-10 12:35] LABS: Absolute Lymphocyte Count 2.41 X10^3/uL (0.83-4.51); Absolute Neutrophil Count 6.5 X10^3/uL (2.0-7.7); Basophil# 0.04 X10^3/uL; Basophil% 0.4 % (0-1); Eosinophil# 0.13 X10^3/uL; Eosinophils% 1.3 % (0-5); Hematocrit 39.2 % (37-47); Hemoglobin 11.9 g/dL (12.0-15.0); Lymphocyte # 2.41 X10^3/ul (0.83-4.51); Lymphocyte % 24.6 % (19-41); Mean Corp Hgb Conc 30.4 g/dL (32-36); Mean Corpuscular Hgb 25.9 pg (27.0-32.0); Mean Corpuscular Volume 85.4 fL (81-99); Mean Platelet Vol. 10.2 fl (6.2-12.0); Monocyte# 0.63 X10^3/uL; Monocyte% 6.4 % (0-10); NRBC Flagged by Analyzer 0 % (0-5); Neutrophil # 6.53 X10^3/uL (2.7-7.7); Neutrophil % 66.9 % (47-70); Platelet Count 367 K/mm3 (150-450); RBC Distribution Width CV 14.8 % (11.6-14.6); RBC Distribution Width SD 45.1 fl (35.1-43.9); Red Blood Count 4.59 M/mm3 (4.2-5.4); White Blood Count 9.8 K/mm3 (4.4-11.0)
[2024-02-10 13:04] LABS: Vitamin B12 1716 pg/mL (211-911); Vitamin D,25 Hydroxy 62.3 ng/mL
[2024-02-10 13:08] LABS: ALB/GLOB Ratio 0.9 RATIO (0.9-2.4); AST(SGOT) 16 U/L (15-37); Alanine Aminotransfer ALT/SGPT 23 U/L (13-56); Albumin, Serum 4.1 g/dL (3.2-5.0); Alkaline Phosphatase 94 U/L (45-117); Anion Gap 7 (5-15); BUN 19 mg/dL (7-18); BUN/Creat Ratio 22.1 RATIO (10-20); Calcium,Total 9.7 mg/dL (8.5-10.1); Chloride 102 mmol/L (98-107); Cholesterol 220 mg/dL (200); Creatinine, Serum 0.86 mg/dL (0.55-1.02); EST Glomerular Filtration Rate 69 mL/min (>60); Est Glom Filt Rate - Afr Amer 83 mL/min (>60); Globulin 4.5 g/dL (2.2-4.2); Glucose 109 mg/dL (74-106); High Density Lipoprotein 47 mg/dL; Potassium 3.9 mmol/L (3.5-5.1); Protein, Total 8.6 g/dL (6.4-8.2); Sodium Level 135 mmol/L (136-145); Triglycerides 210 mg/dL; Very Low Density Lipoprotein 42 mg/dL (5-40)
[2024-02-10 17:34] LABS: Microalbumin,Random Urine 7.9 mg/L (NO RANGE EST.); Microalbumin:Creatinine Ratio 8.3 mg/g CRE (<30 mg/g CRE)
== END | disposition home or self-care (01) ==
LOC: BIMLAB 08:22
PROVIDERS: PCP Internal Medicine; Visit Provider Internal Medicine
DX: E11.69 Type 2 diabetes mellitus with other specified complication (principal); I10 Essential (primary) hypertension; Z98.84 Bariatric surgery status; E55.9 Vitamin D deficiency, unspecified
CPT/HCPCS: 36415; 80053; 80061; 82043; 82306; 82570; 82607; 85025

== ENCOUNTER 2024-07-25 18:31 | Emergency (ER) | payer MEDICARE, OTHER, SELFPAY ==
[2024-07-25 18:32] VITALS: BP 159/87; PULSE 80; RESP 18; TEMP 35.9; O2SAT 99
--- NOTE | 2024-07-25 20:00 | ED.RN ---
Pt did not want to wait in waiting room any longer to be seen by a physician.
== END 2024-07-25 20:00 | disposition left against medical advice (07) ==
LOC: ED 20:22
PROVIDERS: PCP Internal Medicine
DX: Z53.21 Procedure and treatment not carried out due to patient leaving prior to being seen by health care provider (principal)

== ENCOUNTER 2024-07-26 03:01 | Emergency (ER) | payer MEDICARE, OTHER, SELFPAY ==
[2024-07-26 03:02] VITALS: BP 170/98; PULSE 81; RESP 17; TEMP 36.5; O2SAT 98; BMI 28.8
[2024-07-26 03:07] VITALS: BP 170/98; PULSE 81; RESP 16; O2SAT 99
--- NOTE | 2024-07-26 03:25 | CT_ITS ---
STUDY: CT LUMBAR SPINE WITHOUT CONTRAST REASON FOR EXAM: Female, 74 years old patient with lumbar radiculopathy. RADIATION DOSAGE (If Supplied By Facility): CTDIvol = ( 13.91 ) mGy, DLP = ( 477.16 ) mGycm TECHNIQUE: The patient was scanned in a multi detector CT scanner. High resolution transaxial imaging was performed. Images were obtained from T10 to sacrum. Sagittal and coronal images were reconstructed. Individualized dose optimization techniques were used for this CT. COMPARISON: MRI lumbar spine dated March 04, 2023. FINDINGS: There is an exaggerated lumbar lordosis. There is a thoracolumbar scoliosis with convexity towards the left. Estimated angulation of the scoliosis is approximately 25 degrees. The bones appear osteopenic. Imaged thoracic and lumbar vertebral bodies have normal heights. There is no demonstrated compression deformity or fracture of the visualized lumbar vertebrae. There are Schmorl''s nodes at the endplates of T11 and T12. L1-2: There is mild annular disk bulge and osteophyte complex. There is mild degenerative arthropathy of the facet joints. Bilateral neuroforamina are narrowed. There is no appreciable acquired central canal stenosis. L2-3: There is mild annular disk bulge and osteophyte complex. There is mild degenerative arthropathy of the facet joints. Bilateral neuroforamina are narrowed. There is no appreciable acquired central canal stenosis. L3-4: There is mild annular disk bulge and osteophyte complex. There is mild degenerative arthropathy of the facet joints. Bilateral neuroforamina are narrowed. There is no appreciable acquired central canal stenosis. L4-5: There is narrowing of disc space and vacuum disc phenomenon. The patient appears to have had laminectomies of L5. There is mild annular disk bulge and osteophyte complex. There is mild degenerative arthropathy of the facet joints. Bilateral neuroforamina are narrowed. There is no appreciable acquired central canal stenosis. L5-S1: There is mild annular disk bulge and osteophyte complex. There is mild degenerative arthropathy of the facet joints. Bilateral neuroforamina are narrowed. There is no appreciable acquired central canal stenosis. Normal visualized paraspinous soft tissue structures. There is mild vascular calcification of the abdominal aorta. CT/Spine Lumbar without Contrast IMPRESSION: 1. No CT evidence of acute compression or displaced fracture. 2. Postoperative changes of the lumbar spine at L4-5. 3. Multilevel degenerative changes of the lumbar spine, as described. Electronically Signed: Nadia Dobson MD at 4:54 EST ,
[2024-07-26] MEDS: Ondansetron ODT 4 MG Tablet PO (03:33)
[2024-07-26] MEDS: Orphenadrine 100 MG Tablet PO (03:33)
[2024-07-26] MEDS: dexAMETHasone 10 MG/ML Vial IM (03:36)
[2024-07-26] MEDS: Morphine 4 MG/ML Syringe 6 MG IM (03:37)
--- NOTE | 2024-07-26 03:38 | EX.ED.DYSGE1 ---
HPI History of Present Illness Chief Complaint: Back Informant: patient and spouse/S.O. Narrative Narrative: Patient is a 74-year-old female with past medical history of hypertension hyperlipidemia and type 2 diabetes. She states roughly 1 year ago she had her L4-L5 vertebrae fixed. She states she walks 4 miles a day. She states that there is been no recent trauma and she denies any loss of bowel bladder control or IV drug use. However over the last 1 to 2 days she has been having increasing posterior right leg pain. She states the pain seems to originate around the mid buttocks region and will radiate all the way down to her toes. She states that it is constantly painful and that it is difficult to move her leg or ambulate secondary to the symptoms. She also reports that it feels numb. 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 Varicose veins of left leg with edema Cervical radiculopathy Left arm pain Left breast mass Abnormal mammogram of right breast Anemia Breast cancer HTN (hypertension) Diabetes High cholesterol Home Medications ?Medication ?Instructions ?Recorded ?Last Taken ?Type compr.stocking,thigh,short,med #4 ea 02/15/21 Unknown Rx blood sugar diagnostic (Blood #100 ea 04/22/21 Unknown Rx Glucose Test strips) blood-glucose meter (Blood Glucose #1 ea 04/22/21 Unknown Rx Monitoring kit) blood sugar diagnostic (Accu-Chek #200 ea 10/28/21 Unknown Rx Guide test strips) lancets 17 gauge (Acti-Sid #300 ea 11/05/21 Unknown Rx Lancets) potassium chloride 10 mEq See Rx Instructions .Route 03/16/23 Unknown Rx tablet,extended release .COMPLEX #90 tabs cyanocobalamin (vitamin B-12) See Rx Instructions .Route 07/10/23 Unknown Rx 1,000 mcg/mL injection solution .COMPLEX #10 mL ferrous sulfate 325 mg (65 mg 325 mg PO DAILY #90 tabs 02/08/24 Unknown Rx iron) tablet ramipril 5 mg capsule 5 mg PO DAILY #90 CAPSULES 02/08/24 Unknown Rx rosuvastatin 10 mg tablet 10 mg PO DAILY #60 tabs 02/10/24 Unknown Rx naltrexone 8 mg-bupropion 90 mg 2 tab PO BID 3 months #360 tabs 05/25/24 Unknown Rx tablet,extended release (Contrave) baclofen 10 mg tablet 10 mg PO QHS PRN muscle spasm #30 05/30/24 Unknown Rx tabs glimepiride 2 mg tablet 2 mg PO QAM #90 tabs 06/17/24 Unknown Rx hydrochlorothiazide 12.5 mg capsule See Rx Instructions .Route 06/17/24 Unknown Rx .COMPLEX #90 caps metformin 1,000 mg tablet 1,000 mg PO DAILY #90 tabs 06/17/24 Unknown Rx cholecalciferol (vitamin D3) 1,250 See Rx Instructions .Route 06/27/24 Unknown Rx mcg (50,000 unit) capsule .COMPLEX #12 caps gabapentin 300 mg capsule 300 mg PO TID 14 days #42 caps 07/26/24 Unknown Rx methocarbamol 500 mg tablet 500 mg PO 4X/DAY PRN Muscle 07/26/24 Unknown Rx pain/spasm #40 tabs ondansetron 4 mg disintegrating 4 mg PO TID PRN nausea and 07/26/24 Unknown Rx tablet vomiting #21 tabs oxycodone 5 mg tablet 5 mg PO Q6H PRN pain 5 days #20 07/26/24 Unknown Rx tabs Allergy/AdvReac Type Severity Reaction Status Date / Time prochlorperazine (From Allergy Other Verified 07/26/24 03:01 Compazine) NSAIDS (Non-Steroidal AdvReac Upset Verified 07/26/24 03:01 Anti-Inflamma Stomach Family History Mother Cancer Pancreatic cancer Diabetes Depression Sister Cancer Lung cancer Father Colon cancer Heart disease Myocardial infarction Hypertension CVA (cerebral vascular accident) Sister Cancer Kidney cancer Thyroid disorder Other Anxiety Surgical History History of back surgery History of revision of total knee arthroplasty History Panniculectomy History of left cataract surgery History of partial mastectomy of left breast History of breast reconstruction history of stomach surgery History of cholecystectomy H/O tubal ligation History of gastric bypass Social History Smoking Status: Never smoker second hand exposure: No alcohol intake: never what type of physical activity do you participate in: none ROS ROS ED Constitutional Constitutional ED: Denies chills or fever(s) ENT ENT ED: Denies sore throat Cardiovascular Cardiovascular: Denies chest pain Respiratory/Chest Respiratory/Chest: Denies cough or dyspnea Gastrointestinal Gastrointestinal: Denies abdominal pain, diarrhea, nausea or vomiting Genitourinary Genitourinary ED: Denies dysuria or hematuria Musculoskeletal Musculoskeletal: Reports back pain and other Details: Positive posterior right leg pain Integumentary Denies Abrasions or rash Neurologic Neurologic: Reports paresthesias and weakness; Denies headache(s) Hematologic/Lymphatic Hematologic/Lymphatic: Denies easy bleeding or easy bruising EXAM Physical Exam Const Vital Signs: 07/26/24 03:02 07/26/24 03:07 07/26/24 05:07 Temperature 97.7 F L Temperature Source Oral Pulse Rate 81 81 72 Respiratory Rate 17 16 16 Blood Pressure 170/98 H 170/98 H 140/70 H Blood Pressure Mean 122 122 93 Pulse Ox 98 99 92 Oxygen Delivery Method Room Air Room Air Room Air 07/26/24 05:20 Temperature 97.9 F Temperature Source Pulse Rate 72 Respiratory Rate 16 Blood Pressure 140/70 H Blood Pressure Mean 93 Pulse Ox 92 Oxygen Delivery Method Positive well nourished and well developed General Appearance ED: well developed HEENT HEENT Narrative: Normocephalic atraumatic Eyes PERRL and EOMs intact bilaterally General Eye ED: Negative for scleral icterus Neck supple Resp normal respiratory effort and clear to auscultation bilaterally Cardio regular rate and regular rhythm Rate: other Other Details: Heart is regular rate and rhythm without murmurs rubs or gallops Radial and carotid pulses are equal and symmetric Back/Spine no CVA tenderness Back/Spine Narrative: No bony deformity or step-off of the thoracic or lumbar spine no midline tenderness to palpation. No pain with palpation of the right or left sacroiliac joint. No saddle anesthesia. No clonus or Babinski. Patellar reflex is plus 1 out of 4 on the right and plus 2 out of 4 on the left. Patient has a positive straight leg raise on right as well at approximately 40 degrees. Negative Kilo sign bilaterally No overt reproducible pain with palpation of the right or left piriformis muscle belly. Extremity normal to inspection Neuro oriented x3 and CN's II-XII intact bilaterally Sensorium / Orientation: alert Psych mental status grossly normal Skin no rashes or lesions noted Skin Narrative: No overlying soft tissue changes to suggest trauma or infection MDM MDM MDM Narrative Medical decision making narrative: Patient presented to the ER hypertensive but has a past medical history of this and otherwise vitals are stable. She reported pain in the right leg radiating down from approximately the mid buttocks to her toes. Differential diagnosis is for sciatica versus piriformis syndrome versus lumbar radiculopathy. She does not have overlying erythema or warmth to suggest cellulitis abscess or DVT. Compartments are soft and compressible going against compartment syndrome. Patient also denies loss of bowel or bladder control or IV drug use going against cauda equina or epidural abscess. She also denies any recent injections or procedures to her back or hip going against osteomyelitis or discitis. She denied any fevers or chills my concern for a septic joint is low as well. As her history and exam indicates this is most likely radicular in nature I did like to perform a CT scan to check for nervous compression. The CT scan showed multiple areas of degeneration within the lumbar spine but no obvious nerve compression. After treatment in the ER patient did have improvement of symptoms and remained neurovascularly intact. Therefore as her exam indicates radiculopathy without infection compartment syndrome or neuro claudication symptoms there is no need for admission and she is otherwise safe for discharge with outpatient follow-up Radiography Diagnostic Testing: Clinical Impression(s) from Imaging Studies Lumbar Spine CT 07/26/24 03:25 IMPRESSION: 1. No CT evidence of acute compression or displaced fracture. 2. Postoperative changes of the lumbar spine at L4-5. 3. Multilevel degenerative changes of the lumbar spine, as described. Electronically Signed: Nadia Dobson MD at 4:54 EST Reading Location ID and State: [facility] / [place] , Service support , Discharge Plan Triage Chief Complaint: Back ED Provider: Hiram Matthew Dx/Rx/DC Orders Clinical Impression: Lumbar radiculopathy, Degenerative disc disease, Type 2 diabetes mellitus, Hypertension Instructions: Understanding Lumbar Radiculopathy, ED Degenerative Disk Disease Prescriptions: New ondansetron 4 mg tablet,disintegrating 4 mg PO TID PRN (Reason: nausea and vomiting) Qty: 21 0RF methocarbamol 500 mg tablet 500 mg PO 4X/DAY PRN (Reason: Muscle pain/spasm) Qty: 40 0RF gabapentin 300 mg capsule 300 mg PO TID 14 Days Qty: 42 0RF oxycodone 5 mg tablet 5 mg PO Q6H PRN (Reason: pain) 5 Days Qty: 20 0RF No Action (DME) compr.stocking,thigh,short,med Misc See Rx Instructions .ROUTE .MEDSUPPLY Qty: 4 0RF Rx Instructions: As directed (DME) Accu-Chek Guide test strips Strip See Rx Instructions .ROUTE .MEDSUPPLY Qty: 200 3RF Rx Instructions: check blood glucose 3x daily as directed rosuvastatin 10 mg tablet 10 mg PO DAILY Qty: 60 2RF Contrave 8-90 mg tablet extended release 2 tab PO BID 90 Days Qty: 360 0RF (DME) blood-glucose meter [Blood Glucose Monitoring] Kit See Rx Instructions .ROUTE .MEDSUPPLY Qty: 1 0RF Rx Instructions: Check daily (DME) Blood Glucose Test Strip See Rx Instructions .ROUTE .MEDSUPPLY Qty: 100 3RF Rx Instructions: Check daily (DME) Acti-Sid Lancets 17 gauge misc See Rx Instructions .ROUTE .MEDSUPPLY Qty: 300 2RF Rx Instructions: Check 3x daily potassium chloride 10 mEq tablet extended release See Rx Instructions .ROUTE .COMPLEX Qty: 90 3RF Dose Instruction: Take 1 tablet by mouth once daily Rx Instructions: Take 1 tablet by mouth once daily cyanocobalamin (vitamin B-12) 1,000 mcg/mL solution See Rx Instructions .ROUTE .COMPLEX Qty: 10 6RF Dose Instruction: INJECT 1 ML (CC) INTRAMUSCULARLY EVERY TWO WEEKS FOR MALABSORPTION Rx Instructions: INJECT 1 ML (CC) INTRAMUSCULARLY EVERY TWO WEEKS FOR MALABSORPTION ramipril 5 mg capsule 5 mg PO DAILY Qty: 90 0RF ferrous sulfate 325 mg (65 mg iron) tablet 325 mg PO DAILY Qty: 90 0RF baclofen 10 mg tablet 10 mg PO QHS PRN (Reason: muscle spasm) Qty: 30 2RF metformin 1,000 mg tablet 1,000 mg PO DAILY Qty: 90 0RF hydrochlorothiazide 12.5 mg capsule See Rx Instructions .ROUTE .COMPLEX Qty: 90 0RF Dose Instruction: TAKE 1 CAPSULE BY MOUTH ONCE DAILY FOR BLOOD PRESSURE Rx Instructions: TAKE 1 CAPSULE BY MOUTH ONCE DAILY FOR BLOOD PRESSURE glimepiride 2 mg tablet 2 mg PO QAM Qty: 90 0RF Rx Instructions: administer with breakfast cholecalciferol (vitamin D3) 1,250 mcg (50,000 unit) capsule See Rx Instructions .ROUTE .COMPLEX Qty: 12 0RF Dose Instruction: Take 1 capsule by mouth once a week Rx Instructions: Take 1 capsule by mouth once a week Primary Care Provider: Isidro Hester Referrals: Angel Mercer MD [Med Staff - Active Staff] - Isidro Hester MD [Primary Care Provider] - Activity Restrictions/Additional Instructions: Your history and exam indicate you most likely have nerve compression of your L5-S1 nerve root. Follow-up with the specialist to discuss need for MRI to further document/confirm this. Take your medications as directed to help control symptoms and return to the ER should you have any further concerns Print Language: Panamanian Disposition Disposition: Home, Self Care
[2024-07-26] MEDS: Gabapentin 300 MG Capsule PO (04:01)
[2024-07-26 05:07] VITALS: BP 140/70; PULSE 72; RESP 16; O2SAT 92
[2024-07-26] MEDS: oxyCODONE 5 MG Tablet 10 MG PO (05:18)
[2024-07-26 05:20] VITALS: BP 140/70; PULSE 72; RESP 16; TEMP 36.6; O2SAT 92
== END 2024-07-26 05:35 | disposition home or self-care (01) ==
PROVIDERS: Emergency Provider Emergency Medicine; PCP Internal Medicine; Visit Provider Emergency Medicine
DX: M51.16 Intervertebral disc disorders with radiculopathy, lumbar region (principal); E11.9 Type 2 diabetes mellitus without complications; I10 Essential (primary) hypertension; E78.00 Pure hypercholesterolemia, unspecified; R20.2 Paresthesia of skin; Z98.890 Other specified postprocedural states
CPT/HCPCS: 72131; 96372; 99285

== ENCOUNTER → 2024-08-29 | Outpatient (CLI) | payer MEDICARE, OTHER, SELFPAY ==
[2024-08-29 12:44] LABS: Absolute Lymphocyte Count 1.99 X10^3/uL (0.83-4.51); Absolute Neutrophil Count 4.5 X10^3/uL (2.0-7.7); Basophil# 0.05 X10^3/uL; Basophil% 0.7 % (0-1); Eosinophil# 0.29 X10^3/uL; Eosinophils% 3.9 % (0-5); Hematocrit 37.7 % (37-47); Hemoglobin 11.6 g/dL (12.0-15.0); Lymphocyte # 1.99 X10^3/ul (0.83-4.51); Lymphocyte % 26.8 % (19-41); Mean Corp Hgb Conc 30.8 g/dL (32-36); Mean Corpuscular Hgb 26.2 pg (27.0-32.0); Mean Corpuscular Volume 85.1 fL (81-99); Mean Platelet Vol. 9.7 fl (6.2-12.0); Monocyte# 0.55 X10^3/uL; Monocyte% 7.4 % (0-10); NRBC Flagged by Analyzer 0 % (0-5); Neutrophil # 4.53 X10^3/uL (2.7-7.7); Neutrophil % 60.9 % (47-70); Platelet Count 364 K/mm3 (150-450); RBC Distribution Width CV 16.8 % (11.6-14.6); Red Blood Count 4.43 M/mm3 (4.2-5.4); White Blood Count 7.4 K/mm3 (4.4-11.0)
[2024-08-29 13:01] LABS: Vitamin B12 1037 pg/mL (211-911); Vitamin D,25 Hydroxy 60.6 ng/mL
[2024-08-29 13:10] LABS: ALB/GLOB Ratio 0.9 RATIO (0.9-2.4); AST(SGOT) 27 U/L (15-37); Alanine Aminotransfer ALT/SGPT 26 U/L (13-56); Albumin, Serum 3.7 g/dL (3.2-5.0); Alkaline Phosphatase 84 U/L (45-117); Anion Gap 6 (5-15); BUN 18 mg/dL (7-18); BUN/Creat Ratio 21.8 RATIO (10-20); Calcium,Total 9.5 mg/dL (8.5-10.1); Chloride 108 mmol/L (98-107); Cholesterol 142 mg/dL (200); Creatinine, Serum 0.83 mg/dL (0.55-1.02); EST Glomerular Filtration Rate 72 mL/min (>60); Est Glom Filt Rate - Afr Amer 87 mL/min (>60); Glucose 81 mg/dL (74-106); High Density Lipoprotein 51 mg/dL; Potassium 3.8 mmol/L (3.5-5.1); Protein, Total 7.7 g/dL (6.4-8.2); Sodium Level 137 mmol/L (136-145); Triglycerides 191 mg/dL; Very Low Density Lipoprotein 38 mg/dL (5-40)
[2024-08-29 13:16] LABS: Microalbumin:Creatinine Ratio 14.9 mg/g CRE (<30 mg/g CRE)
== END | disposition home or self-care (01) ==
LOC: BIMLAB 09:36
PROVIDERS: PCP Internal Medicine; Referring Provider Internal Medicine; Visit Provider Internal Medicine
DX: I10 Essential (primary) hypertension (principal); E11.69 Type 2 diabetes mellitus with other specified complication; E55.9 Vitamin D deficiency, unspecified
CPT/HCPCS: 36415; 80053; 80061; 82043; 82306; 82570; 82607; 85025

== ENCOUNTER → 2024-12-05 | Outpatient (CLI) | payer MEDICARE, OTHER, SELFPAY ==
[2024-12-05 13:14] LABS: Absolute Lymphocyte Count 2.25 X10^3/uL (0.83-4.51); Absolute Neutrophil Count 5.1 X10^3/uL (2.0-7.7); Basophil# 0.05 X10^3/uL; Basophil% 0.6 % (0-1); Eosinophil# 0.16 X10^3/uL; Eosinophils% 1.9 % (0-5); Hematocrit 34.4 % (37-47); Hemoglobin 10.4 g/dL (12.0-15.0); Lymphocyte # 2.25 X10^3/ul (0.83-4.51); Lymphocyte % 27.1 % (19-41); Mean Corp Hgb Conc 30.2 g/dL (32-36); Mean Corpuscular Hgb 25.4 pg (27.0-32.0); Mean Corpuscular Volume 83.9 fL (81-99); Mean Platelet Vol. 9.8 fl (6.2-12.0); Monocyte# 0.67 X10^3/uL; Monocyte% 8.1 % (0-10); NRBC Flagged by Analyzer 0 % (0-5); Neutrophil # 5.13 X10^3/uL (2.7-7.7); Neutrophil % 61.8 % (47-70); Platelet Count 373 K/mm3 (150-450); RBC Distribution Width CV 14.2 % (11.6-14.6); RBC Distribution Width SD 43.8 fl (35.1-43.9); White Blood Count 8.3 K/mm3 (4.4-11.0)
[2024-12-05 13:38] LABS: Anion Gap 14 (5-15); BUN 20 mg/dL (4-19); BUN/Creat Ratio 23.4 RATIO (10-20); Calcium,Total 9.6 mg/dL (7.6-11.0); Carbon Dioxide 23.2 mmol/L (21.0-32.0); Chloride 102 mmol/L (98-108); Creatinine, Serum 0.85 mg/dL (0.70-1.20); EST Glomerular Filtration Rate 71 (>60); Glucose 99 mg/dL (70-99); Potassium 4.2 mmol/L (3.3-5.1); Sodium Level 139 mmol/L (133-145)
[2024-12-06 11:14] LABS: Iron 21 ug/dL (50-170)
[2024-12-07 15:46] LABS: Ferritin 9 ng/mL (22-378)
[2024-12-07 17:01] LABS: Iron Binding Capacity,Unsat 460 ug/dL (228-428)
[2024-12-07 17:35] LABS: Iron Binding Capacity,Total 481 ug/dL (250-450)
== END | disposition home or self-care (01) ==
LOC: BIMLAB 09:21
PROVIDERS: PCP Internal Medicine; Referring Provider Internal Medicine; Visit Provider Internal Medicine
DX: D64.9 Anemia, unspecified (principal); I10 Essential (primary) hypertension
CPT/HCPCS: 36415; 80048; 82728; 83540; 83550; 85025

== ENCOUNTER → 2025-01-09 | Outpatient (CLI) | payer MEDICARE, OTHER, SELFPAY ==
[2025-01-09 12:37] LABS: Absolute Lymphocyte Count 2.32 X10^3/uL (0.83-4.51); Absolute Neutrophil Count 4.5 X10^3/uL (2.0-7.7); Basophil# 0.07 X10^3/uL; Basophil% 0.9 % (0-1); Eosinophil# 0.16 X10^3/uL; Eosinophils% 2.1 % (0-5); Hematocrit 33.2 % (37-47); Hemoglobin 9.9 g/dL (12.0-15.0); Lymphocyte # 2.32 X10^3/ul (0.83-4.51); Lymphocyte % 30.4 % (19-41); Mean Corp Hgb Conc 29.8 g/dL (32-36); Mean Corpuscular Hgb 24.8 pg (27.0-32.0); Monocyte# 0.57 X10^3/uL; Monocyte% 7.5 % (0-10); NRBC Flagged by Analyzer 0 % (0-5); Neutrophil # 4.49 X10^3/uL (2.7-7.7); Neutrophil % 58.7 % (47-70); Platelet Count 347 K/mm3 (150-450); RBC Distribution Width CV 15.1 % (11.6-14.6); RBC Distribution Width SD 45.4 fl (35.1-43.9); White Blood Count 7.6 K/mm3 (4.4-11.0)
[2025-01-09 13:14] LABS: Vitamin D,25 Hydroxy 60.1 ng/mL (30-100)
== END | disposition home or self-care (01) ==
LOC: BIMLAB 08:08
PROVIDERS: PCP Internal Medicine; Referring Provider Internal Medicine; Visit Provider Internal Medicine
DX: Z90.3 Acquired absence of stomach [part of] (principal); K91.2 Postsurgical malabsorption, not elsewhere classified; D64.9 Anemia, unspecified
CPT/HCPCS: 36415; 82306; 85025

== ENCOUNTER → 2025-01-13 | Outpatient (CLI) | payer MEDICARE, OTHER, SELFPAY | END | disposition home or self-care (01) | LOC: LABSPEC 11:15 | PROVIDERS: PCP Internal Medicine; Referring Provider Internal Medicine; Visit Provider Internal Medicine | DX: D64.9 Anemia, unspecified (principal) | CPT/HCPCS: 82274 ==

== ENCOUNTER → 2025-01-18 | Outpatient (CLI) | payer MEDICARE, OTHER, SELFPAY ==
[2025-01-18 12:30] LABS: Absolute Lymphocyte Count 2.24 X10^3/uL (0.83-4.51); Absolute Neutrophil Count 5.1 X10^3/uL (2.0-7.7); Basophil# 0.06 X10^3/uL; Basophil% 0.7 % (0-1); Eosinophil# 0.15 X10^3/uL; Eosinophils% 1.8 % (0-5); Hematocrit 33.4 % (37-47); Lymphocyte # 2.24 X10^3/ul (0.83-4.51); Lymphocyte % 27.5 % (19-41); Mean Corp Hgb Conc 29.9 g/dL (32-36); Mean Corpuscular Hgb 24.8 pg (27.0-32.0); Mean Corpuscular Volume 82.7 fL (81-99); Mean Platelet Vol. 10.2 fl (6.2-12.0); Monocyte# 0.58 X10^3/uL; Monocyte% 7.1 % (0-10); NRBC Flagged by Analyzer 0 % (0-5); Neutrophil # 5.09 X10^3/uL (2.7-7.7); Neutrophil % 62.5 % (47-70); Platelet Count 336 K/mm3 (150-450); RBC Distribution Width CV 15.6 % (11.6-14.6); RBC Distribution Width SD 46.8 fl (35.1-43.9); Red Blood Count 4.04 M/mm3 (4.2-5.4); White Blood Count 8.2 K/mm3 (4.4-11.0)
[2025-01-18 13:24] LABS: Ferritin 11 ng/mL (22-378); Iron 34 ug/dL (50-170); Iron Binding Capacity,Unsat 423 ug/dL (228-428)
[2025-01-18 13:26] LABS: Iron Binding Capacity,Total 457 ug/dL (250-450); PERCENT IRON SATURATION 7.4 % (13-59)
== END | disposition home or self-care (01) ==
LOC: BIMLAB 09:17
PROVIDERS: PCP Internal Medicine; Referring Provider Internal Medicine; Visit Provider Internal Medicine
DX: D64.9 Anemia, unspecified (principal)
CPT/HCPCS: 36415; 82728; 83540; 83550; 85025

== ENCOUNTER → 2025-03-14 | Outpatient (CLI) | payer MEDICARE, OTHER, SELFPAY ==
[2025-03-14 09:15] LABS: Hematocrit 38.1 % (37-47); Hemoglobin 11.7 g/dL (12.0-15.0); Immature Granulocytes Count 0.030 X10^3/uL (0.0-0.0); Mean Corp Hgb Conc 30.7 g/dL (32-36); Mean Corpuscular Volume 80.7 fL (81-99); Mean Platelet Vol. 9.5 fl (6.2-12.0); NRBC Flagged by Analyzer 0 % (0-5); Platelet Count 308 K/mm3 (150-450); RBC Distribution Width CV 17.2 % (11.6-14.6); RBC Distribution Width SD 50.4 fl (35.1-43.9); Red Blood Count 4.72 M/mm3 (4.2-5.4); White Blood Count 6.7 K/mm3 (4.4-11.0)
[2025-03-14 09:52] LABS: AST(SGOT) 31 U/L (<=31); Alanine Aminotransfer ALT/SGPT 22 U/L (<=34); Albumin, Serum 4.4 g/dL (3.4-4.8); Alkaline Phosphatase 79 U/L (35-104); Anion Gap 13 (5-15); BUN 18 mg/dL (4-19); BUN/Creat Ratio 21.0 RATIO (10-20); Calcium,Total 9.8 mg/dL (7.6-11.0); Carbon Dioxide 23.3 mmol/L (21.0-32.0); Chloride 103 mmol/L (98-108); Ferritin 24 ng/mL (22-378); Globulin 3.3 g/dL (2.2-4.2); Glucose 107 mg/dL (70-99); Iron 42 ug/dL (50-170); Iron Binding Capacity,Unsat 424 ug/dL (228-428); Potassium 4.8 mmol/L (3.3-5.1)
[2025-03-14 10:07] LABS: Iron Binding Capacity,Total 466 ug/dL (250-450)
== END | disposition home or self-care (01) ==
LOC: LAB 08:16
PROVIDERS: PCP Internal Medicine; Referring Provider Internal Medicine; Visit Provider Internal Medicine
DX: D64.9 Anemia, unspecified (principal); E78.5 Hyperlipidemia, unspecified
CPT/HCPCS: 36415; 80053; 82728; 83540; 83550; 85025

== ENCOUNTER 2025-06-05 05:26 | Emergency (ER) | payer MEDICARE, OTHER, SELFPAY ==
[2025-06-05 05:27] VITALS: BP 148/90; PULSE 78; RESP 16; TEMP 36.4; O2SAT 100
--- OUTSIDE RECORDS SUMMARY | 2025-06-05 06:36 | XMS RPT_ITS | CCD ---
Author Organization [facility] CliniSymt Care Team Providers Care Pier Hand Name Role Phone Miranda Hester MD Primary Care Provider 1(3 [phone]) Dr. Miranda Hester Primary Care Provider [phone] Dr. Miranda Hester Attending Provider 1(330)2 Dr. Miranda Hester Referring Provider 1(330)2 Dr. Miranda Hester Primary Care Provider 1(33 0) Dr. Miranda Hester Attending Provider 1(330)2 Dr. Miranda Hester Referring Provider 1(330)2 Miranda Hester MD Primary Care Provider 1(3 30) Dr. Miranda Hester Primary Care Provider 1(33 0) Dr. Miranda Hester Attending Provider 1(330)2 Dr. Miranda Hester Referring Provider 1(330)2 Rachael LARA, JANE-C Jonas Attending Provider 1(330) Dr. Miranda Hester Primary Care Provider 1(33 0) Dr. Miranda Hester Attending Provider 1(330)2 Dr. Miranda Hester Referring Provider 1(330)2 Dr. Miranda Hester Primary Care Provider 1(33 0) Dr. Miranda Hester Attending Provider 1(330)2 Dr. Miranda Hester Referring Provider 1(330)2 Dr. Miranda Hester Primary Care Provider 1(33 0) Dr. Miranda Hester Attending Provider 1(330)2 Dr. Miranda Hester Referring Provider 1(330)2 Kacie, Dr. Felix Primary Care Provider 1(33 0) Dr. Miranda Hester Attending Provider 1(330)2 Dr. Miranda Hester Referring Provider 1(330)2 Miranda Hester MD Primary Care Provider 1(3 30) OLEGHServando, EFEWONGBE B Primary Care Unavailable CHANDA OCASIO Referring Unavailable OLEGHE, EFEWONGBE B Primary Care Unavailable CHANDA OCASIO Attending Unavailable OLEGHE, EFEWONGBE B Primary Care Unavailable Baron MCCARTHY, Dr. Lorenzana Primary Care Provider 1(330 ) Kacie MCCARTHY, Dr. Felix Primary Care Provider Kacie MCCARTHY, Dr. Felix Attending Provider 1(33 0) Kacie MCCARTHY, Dr. Felix Referring Provider 1(33 0) Kacie MCCARTHY, Dr. Felix Primary Care Provider Kacie MCCARTHY, Dr. Felix Attending Provider 1(33 0) Dr. Miranda Hester MD Referring Provider 1(33 0) Oleghe, Efewongbe Primary Care Unavailable Oleghe, Efewongbe Referring Unavailable Oleghe, Efewongbe Attending Unavailable Oleghe, Efewongbe Attending Unavailable Oleghe, Efewongbe Primary Care Unavailable Oleghe, Efewongbe Referring Unavailable Oleghe, Efewongbe Primary Care Unavailable Hiram Matthew Attending Unavailable Oleghe, Efewongbe Attending Unavailable Oleghe, Efewongbe Primary Care Unavailable Oleghe, Efewongbe Referring Unavailable Oleghe, Efewongbe Primary Care Unavailable Provider, Ed Physician Attending Unavailab le Oleghe, Efewongbe Referring Unavailable Oleghe, Efewongbe Attending Unavailable Oleghe, Efewongbe Primary Care Unavailable Oleghe, Efewongbe Attending Unavailable Oleghe, Efewongbe Primary Care Unavailable Oleghe, Efewongbe Referring Unavailable Oleghe, Efewongbe Referring Unavailable Oleghe, Efewongbe Attending Unavailable Oleghe, Efewongbe Primary Care Unavailable Oleghe, Efewongbe Primary Care Unavailable Oleghe, Efewongbe Referring Unavailable Oleghe, Efewongbe Attending Unavailable Oleghe, Efewongbe Primary Care Unavailable Oleghe, Efewongbe Referring Unavailable Oleghe, Efewongbe Attending Unavailable Oleghe, Efewongbe Referring Unavailable Oleghe, Efewongbe Attending Unavailable Oleghe, Efewongbe Primary Care Unavailable Oleghe, Efewongbe Referring Unavailable Oleghe, Efewongbe Attending Unavailable Oleghe, Efewongbe Primary Care Unavailable Adria MCCARTHY, Darin V Unavailable Dulgar [employer]ISHER, Marni Unavailable Kacie MCCARTHY, Miranda Gonzales Unavailable [phone] Kacie MCCARTHY, Miranda Delgadillodicta Primary Care Prov ider OLEMELIZAE, EFEWONGBE BOWEN Primary Care Unav ailable YAJAIRA JOSEPH Attending Unavailable HARSHA RIGGINS Attending Unavailable OLEGHE, EFEWONGBE BOWEN Primary Care Unav ailable Allergies Allergy Classification Reported Allergen(s) Allergy Type Date of Onset Reaction(s) Facility (17 sources) Prochlorperazine; Translations: [PROCHLORPERAZINE EDISYLATE] Drug Allergy 04-02-20 09 Itching [facility] (17 sources) Prochlorperazine; Translations: [PROCHLORPERAZINE] Drug Allergy 04-02-20 09 Itching [facility] (8 sources) Nonsteroidal Anti-inflammatory Compounds Propensity to adverse reactions 07-27-20 23 Upset Stomach [facility] Comment on above: HX: GASTRIC BYPASS. (1 source) NSAIDs Drug allergy (disorder) 03-13-20 [facility] (1 source) Prochlorperazine Drug Allergy 03-13-20 [facility] (1 source) Prochlorperazine Drug Allergy 08-03-20 14 [employer]. Medications Current Medications Medication Drug Class(es) Dates Sig (Normalized) Sig (Original) acetaminophen 325 mg / HYDROcodone bitartrate 7.5 mg oral tablet (20 sources) Opioid Agonist Start: 08-31-2024 take 1 tablet by mouth every six hours as needed HYDROcodone-Aceta minophen (NORCO) 7.5-325 mg per tablet Take 1 tablet by mouth every 6 hours as needed. 08/31/2024 Active Start: 08-29-2024 End: 12-05-2024 Hydrocodone-Acetaminophen 5- 325 mg tablet Discontinued 1 {tbl} PO THREE TIMES A DAY as needed 0 August 29, 2024 1:00am December 05, 2024 8:51am Start: 01-23-2018 End: 04-12-2018 Hydrocodone-Acetaminophen 1 TABLET tablet Discontinued 1 {tbl} PO EVERY 6 HOURS NEEDED as needed for Pain 10 3 0 January 23, 2018 12:00am April 12, 2018 8:40am Sprain of foot Unspecified sprain of unspecified foot, initial encounter Start: 01-23-2018 End: 04-12-2018 take 1 tablet by mouth every six hours as needed Hydrocodone-Acetaminophen Discontinued 1 TABLET PO EVERY 6 HOURS NEEDED 10 3 January 23, 2018 12:00am April 12, 2018 8:40am amoxicillin 875 mg / clavulanate 125 mg oral tablet (2 sources) Penicillin-class Antibacterial Start: 12-13-2023 End: 12-20-2023 take 1 tablet by mouth twice daily amoxicillin-clavulanate potassium (AUGMENTIN) 875-125 mg per tablet Indications: Bacterial sinusitis Take 1 tablet by mouth two times a day for 7 days. 14 tablet 0 12/13/2023 12/20/2023 Active Start: 02-25-2022 End: 03-04-2022 take 1 tablet by mouth twice daily amoxicillin-clavulanic acid (AUGMENTIN) 875-125 mg per tablet Indications: Bacterial sinusitis Take 1 tablet by mouth twice daily for 7 days. 14 tablet 0 02/25/2022 03/04/2022 Active Comment on above: Take 1 tablet by pritesh th twice daily for 7 days. Take 1 tablet by pritesh th two times a day for 7 days. B12 INJECTION 1000MG (1 source) Start: 08-03-2014 B12 INJECTION 1000MG 1 ml as directed every two weeks active Radha Tubbs AT [facility] Blood-Glucose Meter (Blood Glucose Monitoring) kit (20 sources) Start: 10-25-2024 Blood-Glucose Meter (Blood Glucose Monitoring) kit Active 0 .ROUTE .MEDSUPPLY 1 0 October 25, 2024 12:30pm Type 2 diabetes mellitus Type 2 diabetes mellitus without complications diabetes Check daily Start: 10-25-2024 Blood-Glucose Meter (Blood Glucose Monitoring) kit Active 0 .ROUTE .MEDSUPPLY October 25, 2024 12:30pm Check daily Start: 04-22-2021 End: 10-25-2024 Blood-Glucose Meter (Blood G lucose Monitoring) kit Discontinued 0 .ROUTE .MEDSUPPLY 1 0 April 22, 2021 12:33pm October 25, 2024 12:31pm Type 2 diabetes mellitus Type 2 diabetes mellitus without complications diabetes Check daily Start: 04-22-2021 End: 10-25-2024 Blood-Glucose Meter (Blood G lucose Monitoring) kit Discontinued 0 .ROUTE .MEDSUPPLY 1 April 22, 2021 12:33pm October 25, 2024 12:31pm Check daily Start: 04-22-2021 Blood-Glucose Meter (Blood Glucose Monitoring) kit Active 0 .ROUTE .MEDSUPPLY 1 April 22, 2021 11:33am Check daily Start: 04-22-2021 Blood-Glucose Meter (Blood Glucose Monitoring) kit Active 0 .ROUTE .MEDSUPPLY 1 April 22, 2021 12:33pm Check daily Start: 04-19-2021 End: 04-22-2021 Blood-Glucose Meter (Blood G lucose Monitoring) kit Discontinued 0 .ROUTE .MEDSUPPLY 1 0 April 19, 2021 10:14am April 22, 2021 12:33pm Type 2 diabetes mellitus Type 2 diabetes mellitus without complications diabetes Check blood sugar twice a day and as needed Start: 04-19-2021 End: 04-22-2021 Blood-Glucose Meter (Blood G lucose Monitoring) kit Discontinued 0 .ROUTE .MEDSUPPLY 1 April 19, 2021 9:14am April 22, 2021 11:33am Check blood sugar twice a day and as needed Start: 04-19-2021 End: 04-22-2021 Blood-Glucose Meter (Blood G lucose Monitoring) kit Discontinued 0 .ROUTE .MEDSUPPLY April 19, 2021 10:14am April 22, 2021 12:33pm Check blood sugar twice a day and as needed Start: 04-19-2021 End: 04-19-2021 Blood-Glucose Meter (Blood G lucose Monitoring) kit Discontinued 0 .ROUTE .MEDSUPPLY April 19, 2021 8:35am April 19, 2021 10:15am As directed Start: 04-19-2021 End: 04-19-2021 Blood-Glucose Meter (Blood G lucose Monitoring) kit Discontinued 0 .ROUTE .MEDSUPPLY April 19, 2021 12:00am April 19, 2021 10:15am As directed Start: 04-19-2021 End: 04-19-2021 Blood-Glucose Meter (Blood G lucose Monitoring) kit Discontinued 0 .ROUTE .MEDSUPPLY April 18, 2021 11:00pm April 19, 2021 9:15am As directed Compr.Stocking,Thigh,Short,M ed (9 sources) Start: 02-15-2021 Compr.Stocking,Thigh,Short,M ed Active 0 .ROUTE .MEDSUPPLY February 15, 2021 10:41am As directed Start: 02-15-2021 Compr.Stocking ,Thigh,Short,Med Active 0 .ROUTE .MEDSUPPLY February 15, 2021 12:00am As directed Start: 02-15-2021 Compr.Stocking ,Thigh,Short,Med Active 0 .ROUTE .MEDSUPPLY February 14, 2021 11:00pm As directed ferrous sulfate 325 mg oral tablet (20 sources) Start: 12-08-2024 take 1 tablet by mouth every other day Ferrous Sulfate 325 mg (65 mg iron) tablet Active 325 mg PO every other day 90 December 08, 2024 12:00am Start: 01-23-2023 take 1 tablet by pritesh th once daily FEROSUL 325 mg (65 mg iron) tablet Take 1 tablet by mouth once daily. 01/23/2023 Active Start: 10-24-2022 End: 12-05-2024 take 1 tablet by mouth once daily Ferrous Sulfate 325 mg (65 mg iron) tablet Discontinued 325 mg PO DAILY 90 0 February 08, 2024 5:42pm December 05, 2024 8:52am Comment on above: Take 1 tablet by pritesh th once daily. gabapentin 300 mg oral capsule (8 sources) Anti-epileptic Agent Start: 09-01-2024 take 7.5 mg by mouth three times daily gabapentin (NEURONTIN) 300 mg capsule Take 7.5 mg by mouth three times a day. 09/01/2024 Active Start: 07-26-2024 End: 12-05-2024 take 1 capsule by mouth three times daily Gabapentin 300 mg capsule Discontinued 300 mg PO THREE TIMES A DAY 42 14 0 July 26, 2024 1:00am December 05, 2024 8:51am Lumbar radiculopathy Radiculopathy, lumbar region glimepiride 2 mg oral tablet (20 sources) Sulfonylurea Start: 07-05-2021 End: 09-02-2024 glimepiride (AMARYL) 2 MG tablet 1 (one) tablet (2 mg total) daily . 10/28/2021 Active Comment on above: 2 mg once daily. hydroCHLOROthiazide 12.5 mg oral capsule (20 sources) Thiazide Diuretic Start: 01-01-2015 End: 09-02-2024 take 1 capsule by mouth once daily hydroCHLOROthiazide (MICROZIDE) 12.5 mg capsule Take 1 (one) capsule (12.5 mg total) by mouth daily . 01/01/2015 Active Start: 08-03-2014 take 1 tablet by pritesh th once daily hydrochlorothiazide 12.5 mg tablet 1 tablet by mouth once a day active Radha Tubbs AT [facility] Comment on above: Take 12.5 mg by mout h once daily. magnesium gluconate 250 mg oral tablet (1 source) take 1 tablet by mouth once daily magnesium gluconate 12.5 mg magnesium (250 mg) tablet 1 tablet by mouth once a day as directed active Radha Tubbs AT [facility] metaxalone 400 mg oral tablet (3 sources) take 1 tablet by mouth every eight hours as needed Metaxalone 400 mg tab Take 400 mg by mouth three times a day as needed. Active potassium chloride 10 meq extended release oral tablet (20 sources) Start: 0 End: 3 take 1 tablet by mouth once daily potassium chloride 10 MEQ CR tablet Take 1 (one) tablet (10 mEq total) by mouth daily . 01/06/2021 Active Comment on above: Take 10 mEq by mouth once daily. predniSONE 10 mg oral tablet (2 sources) Start: 3 End: 3 predniSONE (DELTASONE) 10 mg tablet Indications: Rhus dermatitis Take 4 tabs daily for 3 days, then 2 tabs daily for 3 days, then 1 tab daily for 3 days with food. 21 tablet 0 03/02/2023 03/11/2023 Active Comment on above: Take 4 tabs daily fo r 3 days, then 2 tabs daily for 3 days, then 1 tab daily for 3 days with food. ramipril 5 mg oral capsule (20 sources) Angiotensin Converting Enzyme Inhibitor Start: 4 End: 5 ramipriL (ALTACE) 5 MG capsule 10/07/2023 Active Start: 12-15-2017 End: 10-16-2023 take 1 capsule by mouth twice daily Ramipril 5 mg capsule Discontinued 0 .ROUTE .COMPLEX 180 1 March 06, 2023 2:00pm October 16, 2023 9:38am Take 1 capsule by mouth twice daily Start: 04-08-2016 End: 12-15-2017 take 1 capsule by mouth once daily Ramipril 5 MG capsule Discontinued 5 mg PO DAILY April 08, 2016 12:00am December 15, 2017 9:12am rosuvastatin calcium 10 mg oral tablet (20 sources) HMG-CoA Reductase Inhibitor Start: 03-20-2025 rosuvastatin (CRESTO R) 10 MG tablet 03/20/2025 Active Start: 02-10-2024 End: 09-02-2024 take 1 tablet by mouth once daily Rosuvastatin 10 mg tablet Active 10 mg PO DAILY 90 September 02, 2024 1:36pm Start: 12-15-2017 End: 09-13-2024 take 1 tablet by mouth at bedtime Rosuvastatin 5 mg tablet Discontinued 5 mg PO AT BEDTIME 90 November 29, 2020 1:18pm January 20, 2022 8:32am Comment on above: Take 5 mg by mouth o nce daily. VITAMIN D3 (CHOLECALCIFEROL) 1.25 MG (27225 UT) CAPS (1 source) take 1 capsule by mouth every week cholecalciferol (vitamin D3) 1,250 mcg (50,000 unit) capsule 1 CAPSULE BY MOUTH ONCE A WEEK active Radha Tubbs AT [facility] Completed/Discontinued Medications Medication Drug Class(es) Dates Sig (Normalized) Sig (Original) 8 hr acetaminophen 650 mg extended release oral tablet (20 sources) Start: 04-08-2016 End: 11-09-2017 take 1 tablet by mouth every six hours as needed for pain Acetaminophen 650 MG tablet extended release Discontinued 650 mg PO EVERY 6 HOURS NEEDED as needed for Pain April 08, 2016 12:00am November 09, 2017 8:14am take 1 tablet by pritesh th three times daily acetaminophen (TYLENOL) 500 MG tablet Ta ke 1 (one) tablet (500 mg total) by mouth 3 (three) times a day . Active Tylenol Extra St rength 500 mg tablet 2 tablet by mouth as needed for pain active Radha Tubbs AT [facility] anastrozole 1 mg oral tablet (14 sources) Aromatase Inhibitor Start: 11-09-2017 End: 07-04-2020 take 1 tablet by mouth once daily Anastrozole 1 mg tablet Discontinued 1 mg PO daily November 09, 2017 12:00am July 04, 2020 8:59am baclofen 10 mg oral tablet (5 sources) gamma-Aminobutyric Acid-ergic Agonist Start: 05-30-2024 End: 08-29-2024 take 1 tablet by mouth at bedtime as needed for muscle spasms Baclofen 10 mg tablet Discontinued 10 mg PO AT BEDTIME as needed for muscle spasm 30 2 May 30, 2024 12:00am August 29, 2024 10:03am 12 hr buPROPion hydrochloride 90 mg / naltrexone hydrochloride 8 mg extended release oral tablet (5 sources) Opioid Antagonist, Aminoketone Start: 05-25-2024 End: 08-23-2024 Naltrexone-Bupropion (Contrave) 8-90 mg tablet extended release Discontinued 2 {tbl} PO TWICE A DAY 360 90 0 May 25, 2024 12:00am August 22, 2024 1:00am August 23, 2024 1:08am cefadroxil 500 mg oral capsule (14 sources) Cephalosporin Antibacterial Start: 04-10-2016 End: 11-09-2017 take 1 capsule by mouth twice daily Cefadroxil 500 MG capsule Discontinued 500 mg PO TWICE A DAY 10 0 April 10, 2016 12:00am November 09, 2017 8:14am cholecalciferol 1.25 mg oral capsule (20 sources) Vitamin D Start: 12-15-2017 End: 12-08-2024 take 1 capsule by mouth every week Cholecalciferol (Vitamin D3) 1,250 mcg (50,000 unit) capsule Discontinued 0 .ROUTE .COMPLEX 12 0 September 02, 2024 1:34pm December 08, 2024 2:02pm Take 1 capsule by mouth once a week Compr.Stocking,Thigh ,Short,Med misc (5 sources) Start: 02-15-2021 End: 12-05-2024 Compr.Stocking,Thigh ,Short,Med misc Discontinued 0 .ROUTE .MEDSUPPLY 4 0 February 15, 2021 12:00am December 05, 2024 8:49am 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 Varicose veins of left lower extremity with other complications As directed Start: 02-15-2021 End: 12-05-2024 Compr.Stocking,Thigh,Short,M ed misc Discontinued 0 .ROUTE .MEDSUPPLY 4 February 15, 2021 12:00am December 05, 2024 8:49am As directed empagliflozin 25 mg oral tablet (14 sources) Sodium-Glucose Cotransporter 2 Inhibitor Start: 07-05-2021 End: 07-05-2021 take 1 tablet by mouth once daily in the morning Empagliflozin (Jardiance) 25 mg tablet Discontinued 25 mg PO EVERY MORNING 30 1 July 05, 2021 12:00am July 05, 2021 2:11pm ergocalciferol 1.25 mg oral capsule (20 sources) Provitamin D2 Compound Start: 11-09-2017 End: 12-15-2017 Ergocalciferol (Vitamin D2) 50,000 unit capsule Discontinued 52023 U PO every 2 weeks November 09, 2017 12:00am December 15, 2017 9:13am ergocalciferol ( ERGOCALCIFEROL) 1,250 mcg (50,000 unit) capsule Take 1 (one) capsule (50,000 Units total) by mouth over 168 hr . Active take 1 capsule by mouth every we ek ergocalciferol 50,000 unit capsule (VITAMIN D2, DRISDOL) Take 50,000 Units by mouth one time a week. Active Comment on above: Take 50,000 Units by mouth one time a week. escitalopram 5 mg oral tablet (20 sources) Serotonin Reuptake Inhibitor Start: 04-12-20 End: 09-13-19 take 1 tablet by mouth once daily Escitalopram Oxalate (Lexapro) 5 mg tablet Discontinued 5 mg PO daily 90 3 January 20, 2022 12:39pm July 27, 2023 4:59am Comment on above: Take 5 mg by mouth o nce daily. famotidine 20 mg oral tablet (6 sources) Histamine-2 Receptor Antagonist Start: 03-05-20 End: 09-13-19 take 1 tablet by mouth once daily famotidine (PEPCID) 20 mg tablet Take 1 tablet by mouth once daily. 30 tablet 03/05/2023 09/13/2024 Discontinued (Patient chooses alternative therapy) Comment on above: Take 1 tablet by pritesh once daily. fenofibrate 160 mg oral tablet (14 sources) Peroxisome Proliferator Receptor alpha Agonist Start: 11-10-19 End: 12-16-19 18 take 1 tablet by mouth once daily Fenofibrate 160 mg tablet Discontinued 160 mg PO daily November 09, 2017 12:00am December 15, 2017 9:13am fluconazole 100 mg oral tablet (14 sources) Azole Antifungal Start: 04-10-20 16 End: 11-10-19 18 take 2 tablets by mouth once daily Fluconazole 100 MG tablet Discontinued 200 mg PO DAILY 3 April 10, 2016 12:00am November 09, 2017 8:15am Start: 04-10-2016 End: 11-09-2017 take 200 mg by mouth once daily Fluconazole Discontinued 200 MG PO DAILY April 10, 2016 12:00am November 09, 2017 8:15am hydrOXYzine hydrochloride 25 mg oral tablet (6 sources) Antihistamine Start: 03-05-2023 End: 09-13-2024 take 1 tablet by mouth every eight hours as needed hydrOXYzine HCl (ATARAX) 25 mg tablet Take 1 tablet by mouth three times daily as needed for anxiety. 21 tablet 03/05/2023 09/13/2024 Discontinued (Discontinued by another Health Care Provider) Comment on above: Take 1 tablet by pritesh th three times daily as needed for anxiety. letrozole 2.5 mg oral tablet (20 sources) Aromatase Inhibitor Start: 07-04-2020 End: 09-13-2024 take 1 tablet by mouth once daily Letrozole 2.5 mg tablet Discontinued 2.5 mg PO DAILY July 04, 2020 1:00am January 20, 2022 8:30am Comment on above: Take 1 tablet by pritesh th once daily meclizine hydrochloride 12.5 mg oral tablet (13 sources) Antiemetic Start: 12-30-2021 End: 09-13-2024 take 1-2 tablets by mouth every six hours as needed for dizziness meclizine (ANTIVERT) 12.5 mg tab Indications: Vertigo Take 1-2 tablets by mouth every 6 hours as needed (dizziness). 20 tablet 12/30/2021 09/13/2024 Discontinued (Course of therapy completed) Comment on above: Take 1-2 tablets by mouth every 6 hours as needed (dizziness). meloxicam 15 mg oral tablet (20 sources) Nonsteroidal Anti-inflammatory Drug Start: 08-29-2024 End: 08-29-2024 take 1 tablet by mouth once daily Meloxicam 15 mg tablet Discontinued 15 mg PO daily August 29, 2024 1:00am August 29, 2024 1:29pm Start: 01-14-2021 End: 01-20-2022 take 1 tablet by mouth once as needed for pain Meloxicam (Mobic) 15 mg tablet Discontinued 15 mg PO ONCE as needed for pain 90 1 October 28, 2021 9:34am January 20, 2022 8:31am metFORMIN hydrochloride 1000 mg oral tablet (20 sources) Biguanide Start: 10-16-2023 End: 09-02-2024 take 1 tablet by mouth once daily Metformin 1,000 mg tablet Discontinued 1000 mg PO DAILY 90 0 June 17, 2024 4:34pm September 02, 2024 1:37pm Start: 07-28-2018 End: 10-16-2023 take 1 tablet by mouth twice daily Metformin 1,000 mg tablet Discontinued 0 .ROUTE .COMPLEX 180 3 March 16, 2023 5:29pm October 16, 2023 9:38am Take 1 tablet by mouth twice daily Start: 04-08-2016 End: 07-28-2018 take 1 tablet by mouth twice daily Metformin 500 mg tablet Discontinued 500 mg PO TWICE A DAY 180 3 December 15, 2017 9:13am July 28, 2018 5:28pm Comment on above: Take 1,000 mg by pritesh th twice daily. Take 1,000 mg by pritesh th daily with breakfast. methocarbamol 500 mg oral tablet (5 sources) Muscle Relaxant Start: End: take 1 tablet by mouth four times daily as needed for pain Methocarbamol 500 mg tablet Discontinued 500 mg PO 4 TIMES DAILY as needed for Muscle pain/spasm 40 July 26, 2024 6:16am December 05, 2024 8:51am ondansetron 4 mg disintegrating oral tablet (5 sources) Serotonin-3 Receptor Antagonist Start: End: take 1 tablet by mouth three times daily as needed for nausea and vomiting Ondansetron 4 mg tablet,disintegratin g Discontinued 4 mg PO THREE TIMES A DAY as needed for nausea and vomiting 21 July 26, 2024 6:15am December 05, 2024 8:51am oxyCODONE hydrochloride 5 mg oral tablet (5 sources) Opioid Agonist Start: End: take 1 tablet by mouth every six hours as needed for pain Oxycodone 5 mg tablet Discontinued 5 mg PO EVERY 6 HOURS as needed for pain 20 5 July 26, 2024 August 29, 2024 10:03am Lumbar radiculopathy Radiculopathy, lumbar region SITagliptin 100 mg oral tablet (14 sources) Dipeptidyl Peptidase 4 Inhibitor Start: End: take 1 tablet by mouth once daily Sitagliptin Phosphate (Januvia) 100 mg tablet Discontinued 100 mg PO DAILY 30 June 20, 2019 12:00am June 20, 2019 1:50pm triamcinolone acetonide 1 mg/ml topical cream (12 sources) Corticosteroid Start: End: Triamcinolone Acetonide 0.1 % cream Discontinued 1 NMA TOPICAL TWICE A DAY as needed for rash 453.6 March 11, 2023 12:00am March 27, 2023 2:00pm Start: 03-02-2023 End: 03-12-2023 triamcinolone acetonide (DIANA ALOG) 0.1 % cream Indications: Rhus dermatitis Apply 1 application to affected area three times daily for 10 days. Apply sparingly to area for rash/itching. 80 g 0 03/02/2023 03/12/2023 Active Comment on above: Apply 1 application to affected area three times daily for 10 days. Apply sparingly to area for rash/itching. tumric (5 sources) Start: 08-29-2024 End: 12-05-2024 tumric Discontinued PO August 29, 2024 1:00am December 05, 2024 8:51am 1000 bid vitamin b12 1 mg/ml injectable solution (20 sources) Vitamin B12 Start: 11-10-2017 End: 07-10-2023 Cyanocobalamin (Vitamin B-12) Discontinued 0 .ROUTE .COMPLEX May 19, 2022 8:38am July 10, 2023 2:01pm INJECT 1 ML (CC) INTRAMUSCULARLY EVERY TWO WEEKS FOR MALABSORPTION Start: 11-09-2017 End: 11-10-2017 inject 1000 ug by intramuscular injection every month Cyanocobalamin (Vitamin B-12) Discontinued 1000 MCG IM EVERY MONTH November 09, 2017 12:00am November 10, 2017 8:23am Start: 10-23-2016 End: 11-10-2017 cyanocobalamin (B-12) 1,000 mcg/mL injection Inject 1 mL (1,000 mcg total) into the shoulder, thigh, or buttocks See Admin Instructions . 10/23/2016 Active Start: 10-23-2016 End: 09-02-2024 Cyanocobalamin (Vitamin B-12 ) 1,000 mcg/mL solution Discontinued 0 .ROUTE .COMPLEX 06 05July 10, 2023 2:01pm September 02, 2024 1:37pm INJECT 1 ML (CC) INTRAMUSCULARLY EVERY TWO WEEKS FOR MALABSORPTION Comment on above: Inject 1 mL intramus cularly as directed. 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; Translations: [Malignant neoplasm of unspecified site of left female breast] Onset: 07-28-2011 Chronic Cancer of breast (15 sources) History of malignant neoplasm of breast; Translations: [Personal history of malignant neoplasm of breast] 04-08-2016 Episodic Complications of surgical procedures or medical care (20 sources) Post-surgical malabsorption; Translations: [Postsurgical malabsorption, not elsewhere classified] Chronic Conditions associated with dizziness or vertigo (1 source) Vertigo; Translations: [Dizziness and giddiness] Episodic Deficiency and other anemia (20 sources) Anemia; Translations: [Anemia, unspecified] Onset: 04-02-2009 04-02-2009 Episodic Deficiency and other anemia (3 sources) Anemia, unspecified; Translations: [Anemia, unspecified] Onset: 03-31-2025 10-22-2022 Episodic Diabetes mellitus with complications (1 source) Type 2 diabetes mellitus with other specified complication; Translations: [Type 2 diabetes mellitus with other specified complication] Onset: 12-05-2024 Chronic Diabetes mellitus without complication (20 sources) Diabetes mellitus; Translations: [Type 2 diabetes mellitus without complications] Onset: 03-13-2025 Chronic Diseases of white blood cells (20 sources) Neutropenia; Translations: [Neutropenia, unspecified] Onset: 10-16-2011 10-16-2011 Chronic Disorders of lipid metabolism (13 sources) Hyperlipidemia; Translations: [Hyperlipidemia, unspecified] Onset: 03-13-2025 02-10-2024 Chronic Essential hypertension (20 sources) Essential hypertension; Translations: [Essential (primary) hypertension] Onset: 02-25-2017 02-25-2017 Chronic Immunizations and screening for infectious disease (14 sources) Needs influenza immunization; Translations: [Encounter for immunization] 07-05-2021 Episodic Joint disorders and dislocations; trauma-related (1 source) Derangement of knee; Translations: [Unspecified internal derangement of left knee] Onset: 02-16-2024 02-16-2024 Chronic Nonmalignant breast conditions (16 sources) Mastodynia; Translations: [Mastodynia] Episodic Nutritional deficiencies (14 sources) Vitamin D deficiency; Translations: [Vitamin D deficiency, unspecified] 01-04-2019 Chronic Osteoarthritis (16 sources) Osteoarthritis; Translations: [Unspecified osteoarthritis, unspecified site] Onset: 12-01-2024 10-22-2022 Chronic Other acquired deformities (2 sources) Other secondary scoliosis, lumbar region; Translations: [Scoliosis associated with other conditions] Onset: 03-24-2025 03-24-2025 Chronic Other aftercare (1 source) Aftercare following joint replacement surgery; Translations: [Aftercare following joint replacement] Onset: 05-12-2023 10-17-2024 Chronic Other and unspecified benign neoplasm (20 sources) History of polyp of colon; Translations: [Personal history of colonic polyps] Onset: 02-15-2015 02-15-2015 Episodic Other bone disease and musculoskeletal deformities (14 sources) Osteopenia; Translations: [Other specified disorders of bone density and structure, unspecified site] 07-28-2018 Episodic Other bone disease and musculoskeletal deformities (2 sources) Other specified disorders of bone density and structure, unspecified site; Translations: [Disorder of bone and cartilage, unspecified] 10-16-2023 Episodic Other connective tissue disease (1 source) Presence of right artificial knee joint; Translations: [Knee joint replacement] Onset: 04-07-2024 10-17-2024 Chronic Other connective tissue disease (8 sources) Thigh pain; Translations: [Pain in right thigh] 07-27-2023 Episodic Other connective tissue disease (5 sources) Pain in left lower limb; Translations: [Pain in left leg] 02-10-2024 Episodic Other ear and sense organ disorders (3 sources) Sensorineural hearing loss, bilateral; Translations: [Sensorineural hearing loss, bilateral] 05-09-2025 Chronic Other ear and sense organ disorders (1 source) Hearing loss Onset: 05-09-2025 Chronic Other ear and sense organ disorders (1 source) Otalgia, right ear; Translations: [Otalgia, unspecified] 05-09-2025 Episodic Other gastrointestinal disorders (14 sources) History of bariatric surgical procedure; Translations: [Bariatric surgery status] 04-08-2016 Episodic Other gastrointestinal disorders (3 sources) Bariatric surgery status; Translations: [Bariatric surgery status] 11-10-2022 Episodic Other nervous system disorders (14 sources) H/O: Disorder; Translations: [Personal history of other diseases of the nervous system and sense organs] 04-08-2016 Episodic Other non-traumatic joint disorders (3 sources) Shoulder pain; Translations: [Pain in left shoulder] 02-15-2021 Episodic Other non-traumatic joint disorders (13 sources) Pain in left shoulder; Translations: [Pain in joint, shoulder region] Episodic Other nutritional; endocrine; and metabolic disorders (5 sources) Body mass index 25-29 - overweight; Translations: [Overweight] 05-25-2024 Episodic Other screening for suspected conditions (not mental disorders or infectious disease) (20 sources) Mammography abnormal; Translations: [Other abnormal and inconclusive findings on diagnostic imaging of breast] Onset: 07-18-2011 07-18-2011 Episodic Other skin disorders (10 sources) Eruption; Translations: [Rash and other nonspecific skin eruption] 03-11-2023 Episodic Other skin disorders (2 sources) Rash and other nonspecific skin eruption; Translations: [Rash and other nonspecific skin eruption] 03-11-2023 Episodic Other upper respiratory infections (2 sources) Bacterial sinusitis; Translations: [Chronic sinusitis, unspecified] Chronic Residual codes; unclassified (7 sources) H/O Spinal surgery; Translations: [Other specified postprocedural states] 10-16-2023 Episodic Comment on above: 07/14/2023 Residual codes; unclassified (2 sources) Other specified postprocedural states; Translations: [Other postprocedural status] 10-16-2023 Episodic Residual codes; unclassified (1 source) Acquired absence of stomach [part of]; Translations: [Acquired absence of stomach [part of]] Onset: 01-12-2025 Episodic Skin and subcutaneous tissue infections (20 sources) Cellulitis of abdominal wall ; Translations: [Cellulitis of abdominal wall] Episodic Spondylosis; intervertebral disc disorders; other back problems (7 sources) Degeneration of intervertebral disc; Translations: [Degeneration of intervertebral disc, site unspecified] Onset: 03-23-2024 08-03-2024 Chronic Sprains and strains (14 sources) Sprain of ankle; Translations: [Sprain of unspecified ligament of left ankle, initial encounter] 01-28-2018 Episodic Varicose veins of lower extremity (20 sources) Varicose veins of lower limb co-occurrent with edema; Translations: [Varicose veins of right lower extremity with other complications] 02-15-2021 Episodic Past or Other Problems Problem Classification Problem Date Documented Da te Episodic/Chronic Complication of device; implant or graft (1 source) Disorder of prosthetic joint; Translations: [Broken internal right knee prosthesis, initial encounter] Onset: 3 10-14-2022 Episodic Other connective tissue disease (1 source) Adhesive capsulitis of shoulder; Translations: [Adhesive capsulitis of right shoulder] Onset: 5 11-28-2024 Episodic Other connective tissue disease (1 source) Pain in calf; Translations: [Pain in left lower leg] Onset: 4 02-08-2024 Episodic Other connective tissue disease (1 source) Arthrodesis status; Translations: [Arthrodesis status] Onset: 3 10-17-2024 Episodic Other gastrointestinal disorders (16 sources) History of bypass of stomach; Translations: [Bariatric surgery status] Onset: 7 02-25-2017 Episodic Other non-traumatic joint disorders (1 source) Pain in left knee; Translations: [Pain in joint, lower leg] Onset: 4 02-16-2024 Episodic Other non-traumatic joint disorders (1 source) Patellar clunk syndrome; Translations: [Other specified joint disorders, right knee] Onset: 4 01-14-2024 Episodic Residual codes; unclassified (16 sources) Family history of malignant neoplasm of gastrointestinal tract; Translations: [Family history of malignant neoplasm of digestive organs] Onset: 9 04-02-2009 Episodic Residual codes; unclassified (16 sources) Pain; Translations: [Pain, unspecified] Onset: 2 06-04-2012 Episodic Residual codes; unclassified (1 source) Procedure and treatment not carried out due to patient leaving prior to being seen by health care provider; Translations: [Procedure and treatment not carried out due to patient leaving prior to being seen by health care provider] Onset: 5 Episodic Spondylosis; intervertebral disc disorders; other back problems (20 sources) Stenosis of intervertebral foramina; Translations: [Spinal stenosis, cervical region] Onset: 3 01-14-2021 Episodic Unclassified (13 sources) History Panniculectomy 03-19-2022 Unclassified (13 sources) history of stomach surgery 03-19-2022 Results Test Name Value Interpretation Reference Range Facility Relevant diagnostic tests/la boratory data Narrativeon 03-24-2025 Fall risk assessment yes HILDA [employer] Work Phone: MEDS REVIEW Documentation of current medications (procedure) [employer] Work Phone: MEDS REVIEWD Medications reviewed with changes [employer] Work Phone: Absolute lymphocyte countOrd ered By: Miranda Hester on 03-14-2025 Lymphocytes Auto (Unsp spec) [#/Vol] 2.14 10*3/uL 0.83-4.51 [facility] Absolute neutrophil countOrd ered By: Miranda Hester on 03-14-2025 Neutrophils (Bld) [#/Vol] 3.7 10*3/uL 2.0-7.7 [facility] Anion gap in Serum or Plasma Ordered By: Miranda Hester on 03-14-2025 Anion gap [Moles/Vol] 13 mmol/L 01-12 [facility] Automated lymphocyte count a s percentage of total leukocytesOrdered By: Miranda Hester on 03-14-2025 Lymphocytes/100 WBC Auto (Unsp spec) 31.9 % 19- [facility] BUN/creatinine ratioOrdered By: Miranda Hester on 03-14-2025 Urea nitrogen/Creatinine [Mass ratio] 21.0 mg/mg High 10-20 [facility] Basophil percentageOrdered B y: Miranda Hester on 03-14-2025 Basophils/100 WBC (Bld) 0.6 % 0-1 [facility] Bilirubin, totalOrdered By: Miranda Hester on 03-14-2025 Bilirubin [Mass/Vol] 0.31 mg/dL 0.00-1.30 [facility] CBC W/Diff, Automatedon 02-28 Absolute Lymph 2.14 X10 3/uL Normal 0.83-4.51 [facility] Comment on above: Performed By: #### M 100.7900 #### [facility] Laboratory [facility] [place], [address] Absolute Neut 3.7 X10 3/uL Normal 2.0-7.7 [facility] Comment on above: Performed By: #### M 100.7900 #### [facility] Laboratory [address] [place], [address] Basophils/100 WBC (Bld) 0.6 % Normal 0-1 [facility] Comment on above: Performed By: #### M 100.7900 #### [facility] [address] [place], [address] Eosinophils/100 WBC (Bld) 3.1 % Normal 0-5 [facility] Comment on above: Performed By: #### M 100.7900 #### [facility] [address] [place], [address] Erythrocyte distribution width (RBC) [Ratio] 17.2 % High 11.6-14.6 [facility] Comment on above: Performed By: #### M 100.7900 #### [facility] [address] [place], [address] Hematocrit (Bld) [Volume fraction] 38.1 % Normal 37-47 [facility] Comment on above: Performed By: #### M 100.7900 #### [facility] [address] [place], [address] Hemoglobin (Bld) [Mass/Vol] 11.7 g/dL Low 12.0-15.0 [facility] Comment on above: Performed By: #### M 100.7900 #### [facility] [address] [place], [address] IG% 0.400 Normal 0.0-0.9 [facility] Comment on above: Result Comment: IG% - Immature Granulocytes (promyelocytes, myelocytes and metamyelocytes) > 1% indicates that a LEFT SHIFT is Present. Performed By: #### M 100.7900 #### [facility] [address] [place], [address] Lymphocytes/100 WBC (Bld) 31.9 % Normal 19-41 [facility] Comment on above: Performed By: #### M 100.7900 #### [facility] [address] [place], [address] MCH (RBC) [Entitic mass] 24.8 pg Low 27.0-32.0 [facility] Comment on above: Performed By: #### M 100.7900 #### [facility] [address] [place], [address] MCHC (RBC) [Mass/Vol] 30.7 g/dL Low 32-36 [facility] Comment on above: Performed By: #### M 100.7900 #### [facility] [address] [place], [address] MCV (RBC) [Entitic vol] 80.7 fL Low 81-99 [facility] Comment on above: Performed By: #### M 100.7900 #### [facility] [address] [place], [address] Monocytes/100 WBC (Bld) 8.2 % Normal 0-10 [facility] Comment on above: Performed By: #### M 100.7900 #### [facility] [address] [place], [address] Neutrophils/100 WBC (Bld) 55.8 % Normal 47-70 [facility] Comment on above: Performed By: #### M 100.7900 #### [facility] [address] [place], [address] Nucleated RBC (Bld) [#/Vol] 0 10*3/uL Normal 0-5 [facility] Comment on above: Performed By: #### M 100.7900 #### [facility] [address] [place], [address] Platelet mean volume (Bld) [Entitic vol] 9.5 fL Normal 6.2-12.0 [facility] Comment on above: Performed By: #### M 100.7900 #### [facility] [address] [place], [address] Platelets (Bld) [#/Vol] 308 10*3/uL Normal 150-450 [facility] Comment on above: Performed By: #### M 100.7900 #### [facility] [address] [place], [address] RBC (Bld) [#/Vol] 4.72 10*6/uL Normal 4.2-5.4 [facility] Comment on above: Performed By: #### M 100.7900 #### [facility] [address] [place], [address] RDW SD 50.4 fl High 35.1-43.9 [facility] Comment on above: Performed By: #### M 100.7900 #### [facility] [address] [place], [address] WBC (Bld) [#/Vol] 6.7 10*3/uL Normal 4.4-11.0 [facility] Comment on above: Performed By: #### M 100.7900 #### [facility] [address] [place], [address] Carbon dioxide, total [Moles /volume] in Central venous bloodOrdered By: Miranda Hester on 03-14-2025 CO2 [Moles/Vol] 23.3 mmol/L 21.0-32.0 [facility] Chloride assayOrdered By: Cesar Hester on 03-14-2025 Chloride [Moles/Vol] 103 mmol/L 98-108 [facility] Comprehensive Metabolic Prof ilon 03-14-2025 Albumin [Mass/Vol] 4.4 g/dL Normal 3.4-4.8 [facility] Comment on above: Performed By: #### M 100.7900 #### [facility] [address] [place], [address] Albumin/Globulin [Mass ratio] 1.3 {ratio} Normal 0.9-2.4 [facility] Comment on above: Performed By: #### M 100.7900 #### [facility] [address] [place], [address] ALK PHOS 79 U/L Normal 35-104 [facility] Comment on above: Performed By: #### M 100.7900 #### [facility] [address] [place], [address] ALT [Catalytic activity/Vol] 22 U/L Normal <=34 [facility] Comment on above: Performed By: #### M 100.7900 #### [facility] [address] [place], [address] AST [Catalytic activity/Vol] 31 U/L Normal <=31 [facility] Comment on above: Performed By: #### M 100.7900 #### [facility] [address] [place], [address] Bilirubin [Mass/Vol] 0.31 mg/dL Normal 0.00-1.30 [facility] Comment on above: Performed By: #### M 100.7900 #### [facility] [address] [place], [address] BUN/CRE 21.0 RATIO High 10-20 [facility] Comment on above: Performed By: #### M 100.7900 #### [facility] [address] [place], [address] Calcium [Mass/Vol] 9.8 mg/dL Normal 7.6-11.0 [facility] Comment on above: Performed By: #### M 100.7900 #### [facility] [address] [place], [address] Chloride [Moles/Vol] 103 mmol/L Normal 98-108 [facility] Comment on above: Performed By: #### M 100.7900 #### [facility] [address] [place], [address] CO2 [Moles/Vol] 23.3 mmol/L Normal 21.0-32.0 [facility] Comment on above: Performed By: #### M 100.7900 #### [facility] [address] [place], [address] Creatinine [Mass/Vol] 0.83 mg/dL Normal 0.70-1.20 [facility] Comment on above: Performed By: #### M 100.7900 #### [facility] [address] [place], [address] GAP 13 Normal 5-15 [facility] Comment on above: Performed By: #### M 100.7900 #### [facility] [address] [place], [address] GFR/1.73 sq M.predicted among non-blacks MDRD (S/P/Bld) [Vol rate/Area] 73 mL/min/{1.73_m2} Normal >60 [facility] Comment on above: Result Comment: mL/m in/1.73m2 CKD-EPI Creatinine Equation (2020) Performed By: #### M 100.7900 #### [facility] [address] [place], [address] Globulin (S) [Mass/Vol] 3.3 g/dL Normal 2.2-4.2 [facility] Comment on above: Performed By: #### M 100.7900 #### [facility] [address] [place], [address] Glucose [Mass/Vol] 107 mg/dL High 70-99 [facility] Comment on above: Performed By: #### M 100.7900 #### [facility] [address] [place], [address] Potassium [Moles/Vol] 4.8 mmol/L Normal 3.3-5.1 [facility] Comment on above: Performed By: #### M 100.7900 #### [facility] [address] [place], [address] Sodium [Moles/Vol] 139 mmol/L Normal 133-145 [facility] Comment on above: Performed By: #### M 100.7900 #### [facility] [address] [place], [address] T PROT 7.7 g/dL Normal 5.9-8.4 [facility] Comment on above: Performed By: #### M 100.7900 #### [facility] [address] [place], [address] Urea nitrogen [Mass/Vol] 18 mg/dL Normal 4-19 [facility] Comment on above: Performed By: #### M 100.7900 #### [facility] [address] [place], [address] Eosinophil percentageOrdered By: Miranda Hester on 03-14-2025 Eosinophils/100 WBC (Bld) 3.1 % 0-5 [facility] Erythrocyte distribution wid th ratioOrdered By: Efsudheerbe Oleghe on 03-14-2025 Erythrocyte distribution width (RBC) [Ratio] 17.2 % High 11.6-14.6 [facility] Erythrocyte distribution wid th standard deviationOrdered By: [facility] Brunswicksunny Evansmelizae on 03-14-2025 Erythrocyte distribution width (RBC) [Ratio] 50.4 fl High 35.1-43.9 [facility] Ferritinon 03-14-2025 Ferritin [Mass/Vol] 24 ng/mL Normal 22-378 [facility] Comment on above: Performed By: #### L 100.0100, L500.4050, L503.6550, L503.6030 ####[facility] [id number] [place], [place], [id number] Glomerular filtration rate ( GFR) estimation/1.73 sq m using serum, plasma, or whole bOrdered By: Miranda Hester on 03-14-2025 GFR/1.73 sq M.predicted among non-blacks MDRD (S/P/Bld) [Vol rate/Area] 73 mL/min/{1.73_m2} >60 [facility] Comment on above: mL/min/1.73m2 CKD-EP I Creatinine Equation (2020) Hematocrit Auto (Bld) [Volum e fraction]Ordered By: Miranda Hester on 03-14-2025 Hematocrit (Bld) [Volume fraction] 38.1 % 37-47 [facility] Hemoglobin measurementOrdere d By: Miranda Hester on 03-14-2025 Hemoglobin (Bld) [Mass/Vol] 11.7 g/dL Low 12.0-15.0 [facility] Immature granulocytes/100 WB C Auto (Bld)Ordered By: Miranda Hester on 03-14-2025 Immature granulocytes/100 WBC (Bld) 0.400 % 0.0-0.9 [facility] Comment on above: IG% - Immature Granu locytes (promyelocytes, myelocytes and metamyelocytes) > 1% indicates that a LEFT SHIFT is Present. Iron measurement (mass/mass) Ordered By: Miranda Hester on 03-14-2025 Iron (Unsp spec) [Mass/Mass] 42 ug/dL Low 50-170 [facility] Iron+Iron Binding Capacityon 03-14-2025 TIBC 466 ug/dL High 250-450 [facility] Comment on above: Performed By: #### L 100.0100, L500.4050, L503.6550, L503.6030 ####[facility] [id number] [place], [address] Laboratory - Chemistry and C hemistry - challengeOrdered By: Miranda Hester on 03-14-2025 AST [Catalytic activity/Vol] 31 U/L <32 [facility] MCV (mean corpuscular volume ) determinationOrdered By: Cesarsavineri Nathanmelizaservando on 03-14-2025 MCV (RBC) [Entitic vol] 80.7 fL Low 81-99 [facility] Mean corpuscular hemoglobin (MCH) determinationOrdered By: Miranda Evansmelizaservando on 03-14-2025 MCH (RBC) [Entitic mass] 24.8 pg Low 27.0-32.0 [facility] Mean corpuscular hemoglobin concentration (MCHC) determinationOrdered By: Miranda Evansmelizaservando on 03-14-2025 MCHC (RBC) [Mass/Vol] 30.7 g/dL Low 32-36 [facility] Mean platelet volume determi nationOrdered By: Miranda Evansmelizaservando on 03-14-2025 Platelet mean volume (Bld) [Entitic vol] 9.5 fL 6.2-12.0 [facility] Monocyte percentageOrdered B y: Leonroelsunny Evansmelizaservando on 03-14-2025 Monocytes/100 WBC (Bld) 8.2 % 0-10 [facility] Neutrophil percentageOrdered By: Ольгаsunny Nathanmelizaservando on 03-14-2025 Neutrophils/100 WBC (Bld) 55.8 % 47-70 [facility] No Panel InformationOrdered By: Miranda Hester on 03-14-2025 Unsaturated Iron Binding Capacity 424 ug/dL 228-428 [facility] Nucleated red blood cell per centageOrdered By: Miranda Hester on 03-14-2025 Nucleated RBC/100 WBC (Bld) [Ratio] 0 % 0-5 [facility] Platelet countOrdered By: Cesar sudheersunny Evansmelizaservando on 03-14-2025 Platelets (Bld) [#/Vol] 308 10*3/uL 150-450 [facility] Potassium measurement (mass/ volume)Ordered By: Miranda Hester on 03-14-2025 Potassium (Unsp spec) [Mass/Vol] 4.8 mmol/L 3.3-5.1 [facility] RBC Auto (Bld) [#/Vol]Ordere d By: Miranda Hester on 03-14-2025 RBC (Bld) [#/Vol] 4.72 10*6/uL 4.2-5.4 [facility] Serum creatinine measurement (mass/volume)Ordered By: Miranda Hester on 03-14-2025 Creatinine [Mass/Vol] 0.83 mg/dL 0.70-1.20 [facility] Serum globulin measurementOr dered By: Miranda Hester on 03-14-2025 Globulin (S) [Mass/Vol] 3.3 g/dL 2.2-4.2 [facility] Serum glucose measurement (m ass/volume)Ordered By: Miranda Hester on 03-14-2025 Glucose [Mass/Vol] 107 mg/dL High 70-99 [facility] Serum or plasma alanine joshi otransferase (ALT) measurementOrdered By: Miranda Hester on 03-14-2025 ALT [Catalytic activity/Vol] 22 U/L <35 [facility] Serum or plasma albumin zarina urement (mass/volume)Ordered By: Miranda Hester on 03-14-2025 Albumin [Mass/Vol] 4.4 g/dL 3.4-4.8 [facility] Serum or plasma albumin/glob ulin mass ratioOrdered By: Miranda Hester 03-14-2025 Albumin/Globulin [Mass ratio] 1.3 {ratio} 0.9-2.4 [facility] Serum or plasma alkaline onesimo sphatase measurementOrdered By: Miranda Hester on 03-14-2025 ALP [Catalytic activity/Vol] 79 U/L 35-104 [facility] Serum or plasma calcium zarina urement (mass/volume)Ordered By: Miranda Hester 03-14-2025 Calcium [Mass/Vol] 9.8 mg/dL 7.6-11.0 [facility] Serum or plasma ferritin luly surement (mass/volume)Ordered By: Miranda eHster on 03-14-2025 Ferritin [Mass/Vol] 24 ng/mL 22-378 [facility] Serum or plasma iron saturat ion measurement (mass fraction)Ordered By: Miranda Hester on 03-14-2025 Iron saturation [Mass fraction] 9.0 % Low 13-59 [facility] Serum or plasma urea nitroge n measurement (mass/volume)Ordered By: Miranda Hester on 03-14-2025 Urea nitrogen [Mass/Vol] 18 mg/dL 4-19 [facility] Sodium levelOrdered By: Leon Hester on 03-14-2025 Sodium [Moles/Vol] 139 mmol/L 133-145 [facility] Total proteinOrdered By: Jeff Hester on 03-14-2025 Protein [Mass/Vol] 7.7 g/dL 5.9-8.4 [facility] White blood cell (WBC) count Ordered By: Miranda Hester on 03-14-2025 WBC (Bld) [#/Vol] 6.7 10*3/uL 4.4-11.0 [facility] Internal Medicine Office Vis santhosh 03-13-2025 Internal Medicine Office Visit [facility] [address] [place] [address] [place] [address] OFFICE VISIT Date of Service: 03/13/25 MR#: [id number] Acct: [id number] Name: KARYN GONSALES Rep #: [id number] : 1950 Provider: Dr. Miranda barba MD Age/Sex: 75/F Location: [facility] Status: Signed Intake Vital Signs 12/05/24 08:52 03/13/25 08:23 Height 5 ft 1 in 5 ft 2 in Weight: 147 lb 6 oz BMI 26.9 BP 120/70 Blood Pressure Location Rt brachial Position Sitting Respiration 16 Pulse 80 Pulse Source Monitor Temp 97.6 F L Temp Source Temporal Pulse Oximetry (%) 98 Intake Visit Reasons: 3 m fu Chief Complaint: Follow-up Donor Processor Required: No Accompanied by: Self Is patient in pain?: No Allergies prochlorperazine (From Compazine) Allergy (Verified 03/13/25 08:25) Other NSAIDS (Non-Steroidal Anti-Inflamma Adverse Reaction (Verified 03/13/25 08:25) Upset Stomach Medications ???Medication ???Instructions ???Recorded ???Confirmed ???Type potassium chloride 10 mEq See Rx Instructions .Route 3 03/13/25 Rx tablet,extended release .COMPLEX #90 tabs cyanocobalamin (vitamin B-12) See Rx Instructions .Route 5 03/13/25 Rx 1,000 mcg/mL injection solution .COMPLEX #10 mL glimepiride 2 mg tablet 2 mg PO QAM #90 tabs 09/02/2402/28 Rx hydrochlorothiazide 12.5 mg capsule See Rx Instructions .Route 11/2203/13/25 Rx .COMPLEX #90 caps metformin 1,000 mg tablet 1,000 mg PO DAILY #90 tabs 5 03/13/25 Rx ramipril 5 mg capsule 5 mg PO DAILY #90 CAPSULES 5 03/13/25 Rx rosuvastatin 10 mg tablet 10 mg PO DAILY #90 tabs 09/02/24 0 03/13/25 Rx blood sugar diagnostic (Accu-Chek #200 ea 10/25/24 03/13/25 Rx Guide test strips) blood sugar diagnostic (Blood #100 ea 10/25/24 03/13/25 Rx Glucose Test strips) blood-glucose meter (Blood Glucose #1 ea 10/25/24 03/13/25 Rx Monitoring kit) lancets 17 gauge (Acti-Sid #300 ea 10/25/24 03/13/25 Rx Lancets) cholecalciferol (vitamin D3) 1,250 See Rx Instructions .Route 12/0803/13/25 Rx mcg (50,000 unit) capsule .COMPLEX #12 caps ferrous sulfate 325 mg (65 mg 325 mg PO Q OTHER DAY #90 tabs 06/2403/13/25 Rx iron) tablet Have you fallen in the past year?: No Nurse's Note: F/U concern for low iron [facility] Medical History Lumbar radiculopathy Overweight (BMI 25.0-29.9) Hyperlipidemia Pain of left lower extremity Health care maintenance History of revision of total replacement of right knee joint Preoperative evaluation to rule out surgical contraindication Dermatitis Rash Osteoarthritis Postsurgical malabsorption Flu vaccine need 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 Varicose veins of left leg with edema Cervical radiculopathy Left arm pain Left breast mass Abnormal mammogram of right breast Anemia Breast cancer HTN (hypertension) Diabetes High cholesterol Surgical History S/P lumbar fusion History of back surgery History of revision of total knee arthroplasty History Panniculectomy History of left cataract surgery History of partial mastectomy of left breast History of breast reconstruction history of stomach surgery History of cholecystectomy H/O tubal ligation History of gastric bypass Family History Mother Cancer Pancreatic cancer Diabetes Depression Sister Cancer Lung cancer Father Colon cancer Heart disease Myocardial infarction Hypertension CVA (cerebral vascular accident) Sister Cancer Kidney cancer Thyroid disorder Other Anxiety Social History Smoking Status: Never smoker second hand exposure: No alcohol intake: never what type of physical activity do you participate in: none HPI HPI Chief Complaint: Follow-up Details: KARYN GONSALES, is a 75-year-old female presenting with the management of iron deficiency anemia, type 2 diabetes mellitus, and hypertension. The patient reports concerns about her iron levels, which were previously low, leading to the initiation of oral iron supplementation every other day. She is awaiting follow-up testing to assess the response to treatment, with the possibility of requiring intravenous iron if oral supplementation is insufficient. Her hemoglobin A1c has decreased from 6.7% to 6.5%, indicating improved glycemic control. She maintains a detailed log of her blood glucose levels, which were 97 mg/dL yesterday and 111 mg/dL this morning. The patient's blood pressure is well-controlled at 120/70 mmHg, and she continues to take hydrochlorothiazide and ramipril. Other chronic medical conditions are stable. (more content not included)... Normal [facility] - Hematology and Cell countsOrdered By: Miranda Hester on 03-13-2025 HbA1c (Bld) [Mass fraction] 6.5 % High 4.2-6.3 [facility] Absolute lymphocyte countOrd ered By: Miranda Hester on 01-18-2025 Lymphocytes Auto (Unsp spec) [#/Vol] 2.24 10*3/uL 0.83-4.51 [facility] Absolute neutrophil countOrd ered By: Miranda Hester on 01-18-2025 Neutrophils (Bld) [#/Vol] 5.1 10*3/uL 2.0-7.7 [facility] Automated lymphocyte count a s percentage of total leukocytesOrdered By: Miranda Hester on 01-18-2025 Lymphocytes/100 WBC Auto (Unsp spec) 27.5 % 19-41 [facility] Basophil percentageOrdered B y: Miranda Hestre on 01-18-2025 Basophils/100 WBC (Bld) 0.7 % 0-1 [facility] CBC W/Diff, Automatedon 12-30-2024 Absolute Lymph 2.24 X10 3/uL Normal 0.83-4.51 [facility] Comment on above: Performed By: #### M 100.7900 #### [facility] [address] [place], [address] Absolute Neut 5.1 X10 3/uL Normal 2.0-7.7 [facility] Comment on above: Performed By: #### M 100.7900 #### [facility] [address] [place], [address] Basophils/100 WBC (Bld) 0.7 % Normal 0-1 [facility] Comment on above: Performed By: #### M 100.7900 #### [facility] [address] [place], [address] Eosinophils/100 WBC (Bld) 1.8 % Normal 0-5 [facility] Comment on above: Performed By: #### M 100.7900 #### [facility] [address] [place], [address] Erythrocyte distribution width (RBC) [Ratio] 15.6 % High 11.6-14.6 [facility] Comment on above: Performed By: #### M 100.7900 #### [facility] [address] [place], [address] Hematocrit (Bld) [Volume fraction] 33.4 % Low 37-47 [facility] Comment on above: Performed By: #### M 100.7900 #### [facility] [address] [place], [address] Hemoglobin (Bld) [Mass/Vol] 10.0 g/dL Low 12.0-15.0 [facility] Comment on above: Performed By: #### M 100.7900 #### [facility] [address] [place], [address] IG% 0.400 Normal 0.0-0.9 [facility] Comment on above: Result Comment: IG% - Immature Granulocytes (promyelocytes, myelocytes and metamyelocytes) > 1% indicates that a LEFT SHIFT is Present. Performed By: #### M 100.7900 #### [facility] [address] [place], [address] Lymphocytes/100 WBC (Bld) 27.5 % Normal 19-41 [facility] Comment on above: Performed By: #### M 100.7900 #### [facility] [address] [place], [address] MCH (RBC) [Entitic mass] 24.8 pg Low 27.0-32.0 [facility] Comment on above: Performed By: #### M 100.7900 #### [facility] [address] [place], [address] MCHC (RBC) [Mass/Vol] 29.9 g/dL Low 32-36 [facility] Comment on above: Performed By: #### M 100.7900 #### [facility] [address] [place], [address] MCV (RBC) [Entitic vol] 82.7 fL Normal 81-99 [facility] Comment on above: Performed By: #### M 100.7900 #### [facility] [address] [place], [address] Monocytes/100 WBC (Bld) 7.1 % Normal 0-10 [facility] Comment on above: Performed By: #### M 100.7900 #### [facility] [address] [place], [address] Neutrophils/100 WBC (Bld) 62.5 % Normal 47-70 [facility] Comment on above: Performed By: #### M 100.7900 #### [facility] [address] [place], [address] Nucleated RBC (Bld) [#/Vol] 0 10*3/uL Normal 0-5 [facility] Comment on above: Performed By: #### M 100.7900 #### [facility] [address] [place], [address] Platelet mean volume (Bld) [Entitic vol] 10.2 fL Normal 6.2-12.0 [facility] Comment on above: Performed By: #### M 100.7900 #### [facility] [address] [place], [address] Platelets (Bld) [#/Vol] 336 10*3/uL Normal 150-450 [facility] Comment on above: Performed By: #### M 100.7900 #### [facility] [address] [place], [address] RBC (Bld) [#/Vol] 4.04 10*6/uL Low 4.2-5.4 [facility] Comment on above: Performed By: #### M 100.7900 #### [facility] [address] [place], [address] RDW SD 46.8 fl High 35.1-43.9 [facility] Comment on above: Performed By: #### M 100.7900 #### [facility] [address] [place], [address] WBC (Bld) [#/Vol] 8.2 10*3/uL Normal 4.4-11.0 [facility] Comment on above: Performed By: #### M 100.7900 #### [facility] [address] [place], [address] (116) Eosinophil percentageOrdered By: Cesarkathryn Hester on 01-18-2025 Eosinophils/100 WBC (Bld) 1.8 % 0-5 [facility] Erythrocyte distribution wid th ratioOrdered By: savisyracusesunny Hester on 01-18-2025 Erythrocyte distribution width (RBC) [Ratio] 15.6 % High 11.6-14.6 [facility] Erythrocyte distribution wid th standard deviationOrdered By: savisyracusesunny Rangelservando on 01-18-2025 Erythrocyte distribution width (RBC) [Ratio] 46.8 fl High 35.1-43.9 [facility] Ferritinon 01-18-2025 Ferritin [Mass/Vol] 11 ng/mL Low 22-378 [facility] Comment on above: Performed By: #### M 100.7900 #### [facility] [address] [place], [address] Hematocrit Auto (Bld) [Volum e fraction]Ordered By: Cesarkathryn Evansmelizaservando on 01-18-2025 Hematocrit (Bld) [Volume fraction] 33.4 % Low 37-47 [facility] Hemoglobin measurementOrdere d By: Miranda Hester on 01-18-2025 Hemoglobin (Bld) [Mass/Vol] 10.0 g/dL Low 12.0-15.0 [facility] Immature granulocytes/100 WB C Auto (Bld)Ordered By: saviroelsunny Evansmelizaservando on 01-18-2025 Immature granulocytes/100 WBC (Bld) 0.400 % 0.0-0.9 [facility] Comment on above: IG% - Immature Granu locytes (promyelocytes, myelocytes and metamyelocytes) > 1% indicates that a LEFT SHIFT is Present. Iron measurement (mass/mass) Ordered By: Miranda Hester on 01-18-2025 Iron (Unsp spec) [Mass/Mass] 34 ug/dL Low 50-170 [facility] Iron+Iron Binding Capacityon 01-18-2025 TIBC 457 ug/dL High 250-450 [facility] Comment on above: Performed By: #### M 100.2933 #### [facility] [address] [place], [place], [id number] MCV (mean corpuscular volume ) determinationOrdered By: Miranda Hester on 01-18-2025 MCV (RBC) [Entitic vol] 82.7 fL 81-99 [facility] Mean corpuscular hemoglobin (MCH) determinationOrdered By: Miranda Hester on 01-18-2025 MCH (RBC) [Entitic mass] 24.8 pg Low 27.0-32.0 [facility] Mean corpuscular hemoglobin concentration (MCHC) determinationOrdered By: Miranda Hester on 01-18-2025 MCHC (RBC) [Mass/Vol] 29.9 g/dL Low 32-36 [facility] Mean platelet volume determi nationOrdered By: Miranda Hester on 01-18-2025 Platelet mean volume (Bld) [Entitic vol] 10.2 fL 6.2-12.0 [facility] Monocyte percentageOrdered B y: Miranda Hester on 01-18-2025 Monocytes/100 WBC (Bld) 7.1 % 0-10 [facility] Neutrophil percentageOrdered By: kathryn Hester on 01-18-2025 Neutrophils/100 WBC (Bld) 62.5 % 47-70 [facility] No Panel InformationOrdered By: Miranda Hester on 01-18-2025 Unsaturated Iron Binding Capacity 423 ug/dL 228-428 [facility] Nucleated red blood cell per centageOrdered By: Miranda Hester on 01-18-2025 Nucleated RBC/100 WBC (Bld) [Ratio] 0 % 0-5 [facility] Platelet countOrdered By: Cesar Hester on 01-18-2025 Platelets (Bld) [#/Vol] 336 10*3/uL 150-450 [facility] RBC Auto (Bld) [#/Vol]Ordere d By: Miranda Hester on 01-18-2025 RBC (Bld) [#/Vol] 4.04 10*6/uL Low 4.2-5.4 [facility] Serum or plasma ferritin luly surement (mass/volume)Ordered By: Miranda Hester on 01-18-2025 Ferritin [Mass/Vol] 11 ng/mL Low 22-378 [facility] Serum or plasma iron saturat ion measurement (mass fraction)Ordered By: Miranda Hester on 01-18-2025 Iron saturation [Mass fraction] 7.4 % Low 13-59 [facility] Comment on above: Previous reported re sult: 7.0 %Edited by: KEVIN on 01/18/25:1326 AMENDED REPORT 01/18/25 1326 IRON SATURATION previously reported as: 7.0 L % White blood cell (WBC) count Ordered By: Miranda Hester on 01-18-2025 WBC (Bld) [#/Vol] 8.2 10*3/uL 4.4-11.0 [facility] Stool Occult Blood iFOBon STOB Negative Normal [facility] Comment on above: Performed By: #### M 100.7900 #### [facility] [address] [place] [address], [id number] Stool gastrointestinal hemog lobin detection by immunologic methodOrdered By: Miranda Hester on 01-13-2025 Lower GI hemoglobin IA Ql (Stl) [facility] Stool gastrointestinal hemog lobin detection by immunologic methodOrdered By: Miranda Hester on 01-12-2025 Lower GI hemoglobin IA Ql (Stl) [facility] Stool gastrointestinal hemog lobin detection by immunologic methodOrdered By: Miranda Hester on 01-11-2025 Lower GI hemoglobin IA Ql (Stl) [facility] Absolute lymphocyte countOrd ered By: Miranda Hester on 01-09-2025 Lymphocytes Auto (Unsp spec) [#/Vol] 2.32 10*3/uL 0.83-4.51 [facility] Absolute neutrophil countOrd ered By: Miranda Hester on 01-09-2025 Neutrophils (Bld) [#/Vol] 4.5 10*3/uL 2.0-7.7 [facility] Automated lymphocyte count a s percentage of total leukocytesOrdered By: Miranda Hester on 01-09-2025 Lymphocytes/100 WBC Auto (Unsp spec) 30.4 % 19-41 [facility] Basophil percentageOrdered B y: Miranda Hester on 01-09-2025 Basophils/100 WBC (Bld) 0.9 % 0-1 [facility] CBC W/Diff, Automatedon 12-29-2024 Absolute Lymph 2.32 X10 3/uL Normal 0.83-4.51 [facility] Comment on above: Performed By: #### L 506.1001, L100.0100 ####[facility] [address] [place], [address] Absolute Neut 4.5 X10 3/uL Normal 2.0-7.7 [facility] Comment on above: Performed By: #### L 506.1001, L100.0100 ####[facility] [address] [place], [address] Basophils/100 WBC (Bld) 0.9 % Normal 0-1 [facility] Comment on above: Performed By: #### L 506.1001, L100.0100 ####[facility] [address] [place], [address] Eosinophils/100 WBC (Bld) 2.1 % Normal 0-5 [facility] Comment on above: Performed By: #### L 506.1001, L100.0100 ####[facility] [address] [place], [address] Erythrocyte distribution width (RBC) [Ratio] 15.1 % High 11.6-14.6 [facility] Comment on above: Performed By: #### L 506.1001, L100.0100 ####[facility] [address] [place], [address] Hematocrit (Bld) [Volume fraction] 33.2 % Low 37-47 [facility] Comment on above: Performed By: #### L 506.1001, L100.0100 ####[facility] [address] [place], [address] Hemoglobin (Bld) [Mass/Vol] 9.9 g/dL Low 12.0-15.0 [facility] Comment on above: Performed By: #### L 506.1001, L100.0100 ####[facility] [address] [place], [address] IG% 0.400 Normal 0.0-0.9 [facility] Comment on above: Result Comment: IG% - Immature Granulocytes (promyelocytes, myelocytes and metamyelocytes) > 1% indicates that a LEFT SHIFT is Present. Performed By: #### L 506.1001, L100.0100 ####[facility] [address] [place], [address] Lymphocytes/100 WBC (Bld) 30.4 % Normal 19-41 [facility] Comment on above: Performed By: #### L 506.1001, L100.0100 ####[facility] [address] [place], [address] MCH (RBC) [Entitic mass] 24.8 pg Low 27.0-32.0 [facility] Comment on above: Performed By: #### L 506.1001, L100.0100 ####[facility] [address] [place], [address] MCHC (RBC) [Mass/Vol] 29.8 g/dL Low 32-36 [facility] Comment on above: Performed By: #### L 506.1001, L100.0100 ####[facility] [address] [place], [address] MCV (RBC) [Entitic vol] 83.0 fL Normal 81-99 [facility] Comment on above: Performed By: #### L 506.1001, L100.0100 ####[facility] [address] [place], [address] Monocytes/100 WBC (Bld) 7.5 % Normal 0-10 [facility] Comment on above: Performed By: #### L 506.1001, L100.0100 ####[facility] [address] [place], [address] Neutrophils/100 WBC (Bld) 58.7 % Normal 47-70 [facility] Comment on above: Performed By: #### L 506.1001, L100.0100 ####[facility] [address] [place], [address] Nucleated RBC (Bld) [#/Vol] 0 10*3/uL Normal 0-5 [facility] Comment on above: Performed By: #### L 506.1001, L100.0100 ####[facility] [address] [place], [address] Platelet mean volume (Bld) [Entitic vol] 10.0 fL Normal 6.2-12.0 [facility] Comment on above: Performed By: #### L 506.1001, L100.0100 ####[facility] [address] [place], [address] Platelets (Bld) [#/Vol] 347 10*3/uL Normal 150-450 [facility] Comment on above: Performed By: #### L 506.1001, L100.0100 ####[facility] [address] [place], [address] RBC (Bld) [#/Vol] 4.00 10*6/uL Low 4.2-5.4 [facility] Comment on above: Performed By: #### L 506.1001, L100.0100 ####[facility] [address] [place], [address] RDW SD 45.4 fl High 35.1-43.9 [facility] Comment on above: Performed By: #### L 506.1001, L100.0100 ####[facility] [address] [place], [address] WBC (Bld) [#/Vol] 7.6 10*3/uL Normal 4.4-11.0 [facility] Comment on above: Performed By: #### L 506.1001, L100.0100 ####[facility] [address] [place], [address] Eosinophil percentageOrdered By: Miranda Hester on 01-09-2025 Eosinophils/100 WBC (Bld) 2.1 % 0-5 [facility] Erythrocyte distribution wid th ratioOrdered By: Miranda Hester on 01-09-2025 Erythrocyte distribution width (RBC) [Ratio] 15.1 % High 11.6-14.6 [facility] Erythrocyte distribution wid th standard deviationOrdered By: Miranda Hester on 01-09-2025 Erythrocyte distribution width (RBC) [Ratio] 45.4 fl High 35.1-43.9 [facility] Hematocrit Auto (Bld) [Volum e fraction]Ordered By: Miranda Hester on 01-09-2025 Hematocrit (Bld) [Volume fraction] 33.2 % Low 37-47 [facility] Hemoglobin measurementOrdere d By: Miranda Hester on 01-09-2025 Hemoglobin (Bld) [Mass/Vol] 9.9 g/dL Low 12.0-15.0 [facility] Immature granulocytes/100 WB C Auto (Bld)Ordered By: Miranda Hester on 01-09-2025 Immature granulocytes/100 WBC (Bld) 0.400 % 0.0-0.9 [facility] Comment on above: IG% - Immature Granu locytes (promyelocytes, myelocytes and metamyelocytes) > 1% indicates that a LEFT SHIFT is Present. MCV (mean corpuscular volume ) determinationOrdered By: Miranda Hester on 01-09-2025 MCV (RBC) [Entitic vol] 83.0 fL 81-99 [facility] Mean corpuscular hemoglobin (MCH) determinationOrdered By: Miranda Hester on 01-09-2025 MCH (RBC) [Entitic mass] 24.8 pg Low 27.0-32.0 [facility] Mean corpuscular hemoglobin concentration (MCHC) determinationOrdered By: Miranda Hester on 01-09-2025 MCHC (RBC) [Mass/Vol] 29.8 g/dL Low 32-36 [facility] Mean platelet volume determi nationOrdered By: Miranda Hester on 01-09-2025 Platelet mean volume (Bld) [Entitic vol] 10.0 fL 6.2-12.0 [facility] Monocyte percentageOrdered B y: Miranda Evansmelizaservando on 01-09-2025 Monocytes/100 WBC (Bld) 7.5 % 0-10 [facility] Neutrophil percentageOrdered By: savisyracusesunny Hester on 01-09-2025 Neutrophils/100 WBC (Bld) 58.7 % 47-70 [facility] Nucleated red blood cell per centageOrdered By: Miranda Hester on 01-09-2025 Nucleated RBC/100 WBC (Bld) [Ratio] 0 % 0-5 [facility] Platelet countOrdered By: Ef sudheersunny Evansmelizaservando on 01-09-2025 Platelets (Bld) [#/Vol] 347 10*3/uL 150-450 [facility] RBC Auto (Bld) [#/Vol]Ordere d By: Miranda Rangele on 01-09-2025 RBC (Bld) [#/Vol] 4.00 10*6/uL Low 4.2-5.4 [facility] Vitamin D,25 Hydroxyon 01-09 Vitamin D 25-OH 60.1 ng/mL Normal 30-100 [facility] Comment on above: Result Comment: Abby min D Status Deficiency: <20 ng/mL (50nmol/L) Insufficiency: 20-30 ng/mL (50-75 nmol/L) Sufficiency: 30-100 ng/mL (75-250 nmol/L) Toxicity: >100 ng/mL (>250 nmol/L) Performed By: #### L 506.1001, L100.0100 ####[facility] [address] [place], [address] White blood cell (WBC) count Ordered By: Miranda Hester on 01-09-2025 WBC (Bld) [#/Vol] 7.6 10*3/uL 4.4-11.0 [facility] Ferritinon 12-07-2024 Ferritin [Mass/Vol] 9 ng/mL Low 22-378 [facility] Comment on above: Performed By: #### M 100.7900 #### [facility] [address] [place], [address] Iron+Iron Binding Capacityon 12-07-2024 TIBC 481 ug/dL High 250-450 [facility] Comment on above: Performed By: #### M 100.7900 #### [facility] [address] [place], [address] IRON Normal 50-170 [facility] Comment on above: Result Comment: ERRO R Performed By: #### L 503.6030 #### [facility] [address] [place], [address] IRON SATURATION Normal 13-59 [facility] Comment on above: Result Comment: ERRO R Performed By: #### L 503.6030 #### [facility] [address] [place], [address] TIBC Normal 250-450 [facility] Comment on above: Result Comment: ERRO R Performed By: #### L 503.6030 #### [facility] [address] [place], [address] UIBC Normal 228-428 [facility] Comment on above: Result Comment: ERRO R Performed By: #### L [id number] #### [facility] [address] [place], [address] Ironon 12-06-2024 Iron [Mass/Vol] 21 ug/dL Low 50-170 [facility] Comment on above: Order Comment: DR FREDY BARBA ADDED A FE. RANGLE Performed By: #### M 100.7900 #### [facility] [address] [place], [place], [id number] Absolute lymphocyte countOrd ered By: Miranda Hester on 12-05-2024 Lymphocytes Auto (Unsp spec) [#/Vol] 2.25 10*3/uL 0.83-4.51 [facility] Absolute neutrophil countOrd ered By: savisyracusesunny Hester on 12-05-2024 Neutrophils (Bld) [#/Vol] 5.1 10*3/uL 2.0-7.7 [facility] Anion gap in Serum or Plasma Ordered By: Miranda Hester on 12-05-2024 Anion gap [Moles/Vol] 14 mmol/L 5-15 [facility] Automated lymphocyte count a s percentage of total leukocytesOrdered By: Miranda Hester on 12-05-2024 Lymphocytes/100 WBC Auto (Unsp spec) 27.1 % 19-41 [facility] BUN/creatinine ratioOrdered By: Miranda Hester on 12-05-2024 Urea nitrogen/Creatinine [Mass ratio] 23.4 mg/mg High 10- [facility] Basic Metabolic Profile (BMP )on 12-05-2024 BUN/CRE 23.4 RATIO High 06-19 [facility] Comment on above: Performed By: #### M 100.7900 #### [facility] [address] [place], [address] Calcium [Mass/Vol] 9.6 mg/dL Normal 7.6-11.0 [facility] Comment on above: Performed By: #### M 100.7900 #### [facility] [address] [place], [address] Chloride [Moles/Vol] 102 mmol/L Normal 98-108 [facility] Comment on above: Performed By: #### M 100.7900 #### [facility] [address] [place], [address] CO2 [Moles/Vol] 23.2 mmol/L Normal 21.0-32.0 [facility] Comment on above: Performed By: #### M 100.7900 #### [facility] [address] [place], [address] Creatinine [Mass/Vol] 0.85 mg/dL Normal 0.70-1.20 [facility] Comment on above: Performed By: #### M 100.7900 #### [facility] [address] [place], [address] GAP 14 Normal 5-15 [facility] Comment on above: Performed By: #### M 100.7900 #### [facility] [address] [place], [address] GFR/1.73 sq M.predicted among non-blacks MDRD (S/P/Bld) [Vol rate/Area] 71 mL/min/{1.73_m2} Normal >60 [facility] Comment on above: Result Comment: mL/m in/1.73m2 CKD-EPI Creatinine Equation (2020) Performed By: #### M 100.7900 #### [facility] [address] [place], [address] Glucose [Mass/Vol] 99 mg/dL Normal 70-99 [facility] Comment on above: Performed By: #### M 100.7900 #### [facility] [address] [place], [address] Potassium [Moles/Vol] 4.2 mmol/L Normal 3.3-5.1 [facility] Comment on above: Performed By: #### M 100.7900 #### [facility] [address] [place], [address] Sodium [Moles/Vol] 139 mmol/L Normal 133-145 [facility] Comment on above: Performed By: #### M 100.7900 #### [facility] [address] [place], [address] Urea nitrogen [Mass/Vol] 20 mg/dL High 4-19 [facility] Comment on above: Performed By: #### M 100.7900 #### [facility] [address] [place], [address] Basophil percentageOrdered B y: Miranda Hester on 12-05-2024 Basophils/100 WBC (Bld) 0.6 % 0-1 [facility] CBC W/Diff, Automatedon Absolute Lymph 2.25 X10 3/uL Normal 0.83-4.51 [facility] Comment on above: Performed By: #### M 100.7900 #### [facility] [address] [place], [address] Absolute Neut 5.1 X10 3/uL Normal 2.0-7.7 [facility] Comment on above: Performed By: #### M 100.7900 #### [facility] [address] [place], [address] Basophils/100 WBC (Bld) 0.6 % Normal 0-1 [facility] Comment on above: Performed By: #### M 100.7900 #### [facility] [address] [place], [address] Eosinophils/100 WBC (Bld) 1.9 % Normal 0-5 [facility] Comment on above: Performed By: #### M 100.7900 #### [facility] [address] [place], [address] Erythrocyte distribution width (RBC) [Ratio] 14.2 % Normal 11.6-14.6 [facility] Comment on above: Performed By: #### M 100.7900 #### [facility] [address] [place], [address] Hematocrit (Bld) [Volume fraction] 34.4 % Low 37-47 [facility] Comment on above: Performed By: #### M 100.7900 #### [facility] [address] [place], [address] Hemoglobin (Bld) [Mass/Vol] 10.4 g/dL Low 12.0-15.0 [facility] Comment on above: Performed By: #### M 100.7900 #### [facility] [address] [place], [address] IG% 0.500 Normal 0.0-0.9 [facility] Comment on above: Result Comment: IG% - Immature Granulocytes (promyelocytes, myelocytes and metamyelocytes) > 1% indicates that a LEFT SHIFT is Present. Performed By: #### M 100.7900 #### [facility] [address] [place], [address] Lymphocytes/100 WBC (Bld) 27.1 % Normal 19-41 [facility] Comment on above: Performed By: #### M 100.7900 #### [facility] [address] [place], [address] MCH (RBC) [Entitic mass] 25.4 pg Low 27.0-32.0 [facility] Comment on above: Performed By: #### M 100.7900 #### [facility] [address] [place], [address] MCHC (RBC) [Mass/Vol] 30.2 g/dL Low 32-36 [facility] Comment on above: Performed By: #### M 100.7900 #### [facility] [address] [place], [address] MCV (RBC) [Entitic vol] 83.9 fL Normal 81-99 [facility] Comment on above: Performed By: #### M 100.7900 #### [facility] [address] [place], [address] Monocytes/100 WBC (Bld) 8.1 % Normal 0-10 [facility] Comment on above: Performed By: #### M 100.7900 #### [facility] [address] [place], [address] Neutrophils/100 WBC (Bld) 61.8 % Normal 47-70 [facility] Comment on above: Performed By: #### M 100.7900 #### [facility] [address] [place], [address] Nucleated RBC (Bld) [#/Vol] 0 10*3/uL Normal 0-5 [facility] Comment on above: Performed By: #### M 100.7900 #### [facility] [address] [place], [address] Platelet mean volume (Bld) [Entitic vol] 9.8 fL Normal 6.2-12.0 [facility] Comment on above: Performed By: #### M 100.7900 #### [facility] [address] [place], [address] Platelets (Bld) [#/Vol] 373 10*3/uL Normal 150-450 [facility] Comment on above: Performed By: #### M 100.7900 #### [facility] [address] [place], [address] RBC (Bld) [#/Vol] 4.10 10*6/uL Low 4.2-5.4 [facility] Comment on above: Performed By: #### M 100.7900 #### [facility] [address] [place], [address] RDW SD 43.8 fl Normal 35.1-43.9 [facility] Comment on above: Performed By: #### M 100.7900 #### [facility] [address] [place], [address] WBC (Bld) [#/Vol] 8.3 10*3/uL Normal 4.4-11.0 [facility] Comment on above: Performed By: #### M 100.7900 #### [facility] [address] [place], [place], [address] Calculated total iron bindin g capacityOrdered By: Miranda Hester on 12-05-2024 Total Iron Binding Capacity 481 ug/dL High 250-450 [facility] Carbon dioxide, total [Moles /volume] in Central venous bloodOrdered By: Miranda Hester on 12-05-2024 CO2 [Moles/Vol] 23.2 mmol/L 21.0-32.0 [facility] Chloride assayOrdered By: Cesar Hester on 12-05-2024 Chloride [Moles/Vol] 102 mmol/L 98-108 [facility] Eosinophil percentageOrdered By: Miranda Hester on 12-05-2024 Eosinophils/100 WBC (Bld) 1.9 % 0-5 [facility] Erythrocyte distribution wid th (RBC) [Ratio]Ordered By: Miranda Hester on 12-05-2024 Erythrocyte distribution width (RBC) [Entitic vol] 43.8 fL 35.1-43.9 [facility] Erythrocyte distribution wid th ratioOrdered By: Leonsyracusesunny Hester on 12-05-2024 Erythrocyte distribution width (RBC) [Ratio] 14.2 % 11.6-14.6 [facility] Erythrocyte distribution wid th standard deviationOrdered By: Miranda Hester on 12-05-2024 Erythrocyte distribution width (RBC) [Ratio] 43.8 fl 35.1-43.9 [facility] GFR/1.73 sq M.predicted karsten g non-blacks MDRD (S/P/Bld) [Vol rate/Area]Ordered By: Miranda Hester on 12-05-2024 Estimated GFR (MDRD) Non-Af Amer 71 >60 [facility] Comment on above: mL/min/1.73m2 CKD-EP I Creatinine Equation (2020) Glomerular filtration rate ( GFR) estimation/1.73 sq m using serum, plasma, or whole bOrdered By: Miranda Hester on 12-05-2024 GFR/1.73 sq M.predicted among non-blacks MDRD (S/P/Bld) [Vol rate/Area] 71 mL/min/{1.73_m2} >60 [facility] Comment on above: mL/min/1.73m2 CKD-EP I Creatinine Equation (2020) Hematocrit Auto (Bld) [Volum e fraction]Ordered By: Miranda Hester on 12-05-2024 Hematocrit (Bld) [Volume fraction] 34.4 % Low 37-47 [facility] Hemoglobin measurementOrdere d By: Miranda Hester on 12-05-2024 Hemoglobin (Bld) [Mass/Vol] 10.4 g/dL Low 12.0-15.0 [facility] Immature granulocytes/100 WB C Auto (Bld)Ordered By: Miranda Hester on 12-05-2024 Immature granulocytes/100 WBC (Bld) 0.500 % 0.0-0.9 [facility] Comment on above: IG% - Immature Granu locytes (promyelocytes, myelocytes and metamyelocytes) > 1% indicates that a LEFT SHIFT is Present. Internal Medicine Office Vis santhosh 12-05-2024 Internal Medicine Office Visit [facility] [place] [address] [place] [address] OFFICE VISIT Date of Service: 12/05/24 MR#: [id number] Acct: [id number] Name: KARYN GONSALES Rep #: [id number] : 1950 Provider: Dr. Miranda barba MD Age/Sex: 74/F Location: [facility] Status: Signed Intake Vital Signs 08/29/24 09:05 12/05/24 08:52 Height 5 ft 1 in 5 ft 1 in Weight: 142 lb BMI 26.8 BP 110/60 Blood Pressure Location Rt brachial Position Sitting Respiration 14 Pulse 56 L Pulse Source Monitor Temp 97.1 F L Temp Source Temporal Intake Visit Reasons: 3 M FU Chief Complaint: Follow-up chronic conditions Donor Processor Required: No Is patient in pain?: No Allergies prochlorperazine (From Compazine) Allergy (Verified 12/05/24 08:48) Other NSAIDS (Non-Steroidal Anti-Inflamma Adverse Reaction (Verified 12/05/24 08:48) Upset Stomach Medications ???Medication ???Instructions ???Recorded ???Confirmed ???Type potassium chloride 10 mEq See Rx Instructions .Route 12/05/24 Rx tablet,extended release .COMPLEX #90 tabs cholecalciferol (vitamin D3) 1,250 See Rx Instructions .Route 09/0212/05/24 Rx mcg (50,000 unit) capsule .COMPLEX #12 caps cyanocobalamin (vitamin B-12) See Rx Instructions .Route 5 12/05/24 Rx 1,000 mcg/mL injection solution .COMPLEX #10 mL glimepiride 2 mg tablet 2 mg PO QAM #90 tabs 09/02/2403/24 Rx hydrochlorothiazide 12.5 mg capsule See Rx Instructions .Route 11/2212/05/24 Rx .COMPLEX #90 caps metformin 1,000 mg tablet 1,000 mg PO DAILY #90 tabs 5 12/05/24 Rx ramipril 5 mg capsule 5 mg PO DAILY #90 CAPSULES 5 12/05/24 Rx rosuvastatin 10 mg tablet 10 mg PO DAILY #90 tabs 09/02/24 0 12/05/24 Rx blood sugar diagnostic (Accu-Chek #200 ea 10/25/24 12/05/24 Rx Guide test strips) blood sugar diagnostic (Blood #100 ea 10/25/24 12/05/24 Rx Glucose Test strips) blood-glucose meter (Blood Glucose #1 ea 10/25/24 12/05/24 Rx Monitoring kit) lancets 17 gauge (Acti-Sid #300 ea 10/25/24 12/05/24 Rx Lancets) Have you fallen in the past year?: Yes (01/21) [facility] Medical History Lumbar radiculopathy Overweight (BMI 25.0-29.9) Hyperlipidemia Pain of left lower extremity Health care maintenance History of revision of total replacement of right knee joint Preoperative evaluation to rule out surgical contraindication Dermatitis Rash Osteoarthritis Postsurgical malabsorption Flu vaccine need 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 Varicose veins of left leg with edema Cervical radiculopathy Left arm pain Left breast mass Abnormal mammogram of right breast Anemia Breast cancer HTN (hypertension) Diabetes High cholesterol Surgical History S/P lumbar fusion History of back surgery History of revision of total knee arthroplasty History Panniculectomy History of left cataract surgery History of partial mastectomy of left breast History of breast reconstruction history of stomach surgery History of cholecystectomy H/O tubal ligation History of gastric bypass Family History Mother Cancer Pancreatic cancer Diabetes Depression Sister Cancer Lung cancer Father Colon cancer Heart disease Myocardial infarction Hypertension CVA (cerebral vascular accident) Sister Cancer Kidney cancer Thyroid disorder Other Anxiety Social History Smoking Status: Never smoker second hand exposure: No alcohol intake: never what type of physical activity do you participate in: none HPI HPI Chief Complaint: Follow-up chronic conditions Details: KARYN GONSALES, is a 74 F who presents to the office today for follow-up of her chronic conditions. Also has some concerns/questions. A1c today is at 6.7 similar to last check. Currently on metformin and glimepiride. Stable renal function and overall, tolerating medication well. She however has questions about the safety of metformin. History of hypertension, blood pressure today at 110/60 mmHg. Currently on hydrochlorothiazide and ramipril. Taking her medications consistently. She questions if she needs to be on all of these medications. Other chronic medical conditions are stable. Continues to follow-up closely with Ortho at the [facility]. No significant lower back/radiculopathy reported. ROS Const Constitutional: No body ache, chills, excessive sweating, fatigue, fever(s), frequent falls, headache(s), snoring, weakness, sleep problems or change in appetite Eyes Eyes: No blurry vision, change in visio (more content not included)... Normal [facility] Iron (Unsp spec) [Mass/Mass] Ordered By: Miranda Hester on 12-05-2024 Iron [Mass/Vol] 21 ug/dL Low 50-170 [facility] Iron measurement (mass/mass) Ordered By: Miranda Hester on 12-05-2024 Iron (Unsp spec) [Mass/Mass] 21 ug/dL Low 50-170 [facility] Iron saturation [Mass fracti on]Ordered By: Miranda Hester on 12-05-2024 Iron Saturation 4.0 % Low 13-59 [facility] Comment on above: Previous reported re sult: 4.0 %Edited by: DANNA on 12/07/24:2316 Laboratory - Hematology and Cell countsOrdered By: Miranda Hester on 12-05-2024 HbA1c (Bld) [Mass fraction] 6.7 % High 4.2-6.3 [facility] Lymphocytes Auto (Unsp spec) [#/Vol]Ordered By: Miranda Hester on 12-05-2024 Lymphocytes (Bld) [#/Vol] 2.25 10*3/uL 0.83-4.5 1 [facility] Lymphocytes/100 WBC Auto (Un sp spec)Ordered By: Miranda Hester on 12-05-2024 Lymphocytes/100 WBC (Bld) 27.1 % 19-41 [facility] MCV (mean corpuscular volume ) determinationOrdered By: Miranda Hester on 12-05-2024 MCV (RBC) [Entitic vol] 83.9 fL 81-99 [facility] Mean corpuscular hemoglobin (MCH) determinationOrdered By: Miranda Hester on 12-05-2024 MCH (RBC) [Entitic mass] 25.4 pg Low 27.0-32.0 [facility] Mean corpuscular hemoglobin concentration (MCHC) determinationOrdered By: Miranda Hester on 12-05-2024 MCHC (RBC) [Mass/Vol] 30.2 g/dL Low 32-36 [facility] Mean platelet volume determi nationOrdered By: Miranda Hester on 12-05-2024 Platelet mean volume (Bld) [Entitic vol] 9.8 fL 6.2-12.0 [facility] Monocyte percentageOrdered B y: Miranda Hester on 12-05-2024 Monocytes/100 WBC (Bld) 8.1 % 0-10 [facility] Neutrophil percentageOrdered By: Miranda Hester on 12-05-2024 Neutrophils/100 WBC (Bld) 61.8 % 47-70 [facility] No Panel InformationOrdered By: Miranda Hester on 12-05-2024 Unsaturated Iron Binding Capacity 460 ug/dL High 228-428 [facility] Nucleated red blood cell per centageOrdered By: Miranda Hester on 12-05-2024 Nucleated RBC/100 WBC (Bld) [Ratio] 0 % 0-5 [facility] Platelet countOrdered By: Cesar savineri Hester on 12-05-2024 Platelets (Bld) [#/Vol] 373 10*3/uL 150-450 [facility] Potassium (Unsp spec) [Mass/ Vol]Ordered By: Miranda Hester on 12-05-2024 Potassium [Moles/Vol] 4.2 mmol/L 3.3-5.1 [facility] Potassium measurement (mass/ volume)Ordered By: Miranda Hester on 12-05-2024 Potassium (Unsp spec) [Mass/Vol] 4.2 mmol/L 3.3-5.1 [facility] RBC Auto (Bld) [#/Vol]Ordere d By: Miranda Hester on 12-05-2024 RBC (Bld) [#/Vol] 4.10 10*6/uL Low 4.2-5.4 [facility] Serum creatinine measurement (mass/volume)Ordered By: Miranda Hester on 12-05-2024 Creatinine [Mass/Vol] 0.85 mg/dL 0.70-1.20 [facility] Serum glucose measurement (m ass/volume)Ordered By: Miranda Hester on 12-05-2024 Glucose [Mass/Vol] 99 mg/dL 70-99 [facility] Serum or plasma calcium zarina urement (mass/volume)Ordered By: Miranda Hester on 12-05-2024 Calcium [Mass/Vol] 9.6 mg/dL 7.6-11.0 [facility] Serum or plasma ferritin luly surement (mass/volume)Ordered By: Miranda Hester on 12-05-2024 Ferritin [Mass/Vol] 9 ng/mL Low 22-378 [facility] Serum or plasma iron saturat ion measurement (mass fraction)Ordered By: Miranda Hester on 12-05-2024 Iron saturation [Mass fraction] 4.0 % Low 13-59 [facility] Comment on above: Previous reported re sult: 4.0 %Edited by: DANNA on 12/07/24:1735 Serum or plasma urea nitroge n measurement (mass/volume)Ordered By: Miranda Hester on 12-05-2024 Urea nitrogen [Mass/Vol] 20 mg/dL High 4-19 [facility] Sodium levelOrdered By: Leon Hester on 12-05-2024 Sodium [Moles/Vol] 139 mmol/L 133-145 [facility] White blood cell (WBC) count Ordered By: Miranda Hester on 12-05-2024 WBC (Bld) [#/Vol] 8.3 10*3/uL 4.4-11.0 [facility] Jacqui 09-14-2024 VENKAT Telephone ([employer] PHILIPPEKARYN MCCLURE ([id number]) 1950 F Date Time Provider Department 09/14/24 CHANDA OCASIO During your visit today, we recorded the following information about you: Chanda Ocasio APRN.ANH 09/14/2024 2:50 PM Signed Please inform pt. that her mammogram looks good. Mammogram in one year-OV after. Thank you. Chanda Ocasio APRN.Sushil Patel 09/14/2024 4:16 PM Signed SPOKE TO PT SCHEDULED DIRECTED. Sushil Rios Allergies As of Date: 09/14/2024 Noted Allergy Reaction COMPAZINE (PROCHLORPERAZINE EDISY*04/02/2009 9 - Itching Date Reviewed: 09/13/2024 Reviewed by: Chanda Ocasio APRN.[employer] - Fully Assessed Primary Visit Diagnosis:Invasive ductal carcinoma of left breast in female (HCC) [C50.912] Other Visit Diagnosis:Encounter for screening mammogram for high-risk patient [Z12.31] Order(s):[facility] SCREENING [facility] SHANEL [[id number]] Order #: [id number] FUTURE Prescriptions as of 09/14/2024 - HYDROcodone-Acetaminop hen (NORCO) 7.5-325 mg per tablet Take 1 tablet by mouth every 6 hours as needed. - gabapentin (NEURONTIN) 300 mg capsule Take 7.5 mg by mouth three times a day. - acetaminophen (TYLENOL) 500 mg tablet Take 500 mg by mouth three times a day. - Metaxalone 400 mg tab Take 400 mg by mouth three times a day as needed. - ramipril (ALTACE) 5 mg capsule - FEROSUL 325 mg (65 mg iron) tablet Take 1 tablet by mouth once daily. - glimepiride (AMARYL) 2 mg tablet 2 mg once daily. - potassium chloride (K-TAB) 10 mEq tablet Take 10 mEq by mouth once daily. - ergocalciferol 50,000 unit capsule (VITAMIN D2, DRISDOL) Take 50,000 Units by mouth one time a week. - metFORMIN (GLUCOPHAGE) 1,000 mg tablet Take 1,000 mg by mouth daily with breakfast. - cyanocobalamin (VITAMIN B-12) 1,000 mcg/mL soln Inject 1 mL intramuscularly as directed. every 2 weeks - Hydrochlorothiazide 12.5 mg capsule Take 12.5 mg by mouth once daily. Problem List As Of Date 09/14/2024 Noted Resolved FAMILY HX GI MALIGNANCY [Z80.0] 04/02/2009 ANEMIA NOS [D64.9] 04/02/2009 Abnormal mammogram, unspecified [R92.8] 07/18/2011 Breast cancer [C50.919] 07/28/2011 Neutropenia [D70.9] 10/16/2011 Neutropenia, drug-induced [D70.2] 11/28/2011 Pain [R52] 06/04/2012 Personal history of colonic polyps [Z86.0100] 02/15/2015 Abnormal mammogram [R92.8] 08/07/2016 Invasive ductal carcinoma of left breast in fem*01/07/2017 H/O gastric bypass [Z98.84] 02/25/2017 Hypertension, essential [I10] 02/25/2017 Encounter Status:Closed by SUSHIL RIOS on 09/14/24 [facility] CNOVSPon 09-13-2024 CNOVSP Visit (SP) Office (DARIAN) KARYN GONSALES ([id number]) 1950 F Date Time Provider Department 09/13/24 9:00 AM CHANDA OCASIO During your visit today, we recorded the following information about you: Temperature Pulse Blood pressure Weight 97.4 degrees 92/minute 124/79 64.9 kg Chanda Ocasio APRN.[employer] 09/15/2024 11:43 AM Signed Chief Complaint Patient presents with: Established Patient HPI: Karyn Espinoza Ilda is a 74 year old female who presents here today [...] nodes are negative. ER is 59% , VT is 89% , HER-2/selena by FISH is not amplified. Oncotype DX recurrence score 29 (19% rate of recurrence with tamoxifen alone). Completed TC. Completed radiation 02/10/12. Started arimidex after radiation. Went off of AI for approx. one year. B/l breast recon. in [place]. Recovered well. Pt. was seen by Dr. Adrian for abnormal mamm b/l in January. B/l biopsy done-Neg. Pt. overdue for OV and mammogram. Last seen 12/10/21. Last mamm 03/25/23. Pt. followed by Ortho at [facility]. +back pain. Recent MRI. Scheduled for procedure 10/11/24. Pt. here today with spouse. Appetite:Good. Wt. down 11# over past 2 1/2 years. Energy level:I have none. Denies fever or recent illness. Resp:denies cough or sob Cardiac:denies chest pain/palpitations GI:denies abd pain h/o gastric bypass-n/v, moving bowels regularly :denies dysuria/hematuria Extrem:R leg/low back pain-followed by [facility], denies other pain Endo:denies hot flashes Neuro:denies numbness/tingling Skin:denies rashes/lesions Heme:denies bleeding The ROS is otherwise negative. Past medical history, appointments, medications, allergies reviewed. No changes. EXAM: BP 124/79 Pulse 92 Temp 36.3 ?C (97.4 ?F) (Temporal) Wt 64.9 kg (143 lb 1.3 oz) SpO2 98% BMI 26.00 kg/m? APPEARANCE Well appearing, alert, in no acute distress, well-hydrated, well nourished. HEART RRR with normal S1 and S2, no murmurs LUNG clear to auscultation BREAST FEMALE b/l surgical scars, L radiation changes-outer tenderness, R lower/outer dense tissue stable LYMPH NODES No cervical lymphadenopathy, No supraclavicular lymphadenopathy, and No axillary lymphadenopathy. ABDOMEN bowel sounds normoactive, soft, non-tender EXTREMITIES No edema NEURO Awake, alert and oriented x 3, using wheeled walker, and No involuntary motions. SKIN Skin color, texture, turgor normal, no suspicious rashes or lesions ASSESSMENT/PLAN: 1. Encounter for follow-up surveillance of breast cancer - ICD9: V67.9, V10.3, ICD10: Z08, Z85.3 pT1b (8 mm; moderately diff) N0 MX ER/VT positive; HER2 non amplified by FISH invasive ductal carcinoma the left breast. Oncotype DX recurrence score 29 (19% rate of recurrence with tamoxifen alone). Data from the results suggested about 50% reduction in risk of recurrence with the use of CMF. Tolerated TC very well. - No concerning findings on exam. - Completed 5 years of arimidex-tolerated well. - Tolerated femara well. Completed 10 years of AI therapy. - Reviewed MRI done at [facility] earlier this month. DEBBIE. - Mammogram as scheduled today. - Follow up pending above. - Pt. aware to call office with any questions/concerns. The sensitive examination was discussed with the Patient or Patient's Authorized Senior Ui Designer. As applicable, any other physician, advance practice provider, medical student, or other health professional student that will be observing or involved in the sensitive examination for educational or training purposes was discussed with the Patient or Authorized Senior Ui Designer. The Patient or Authorized Senior Ui Designer has agreed to proceed with the sensitive examination. (Sensitive examination includes inspection and/or palpation of the breasts, pelvis, prostate and anorectal regions) The patient indicates understanding of these issues and agrees with the plan. All documentation from previous visit of 12/10/21-Dr. Schultz/myself was copied and pasted, documentation has been reviewed and edited as necessary for today's visit. Chanda Ocasio APRN.ANH Allergies As of Date: 09/13/2024 Noted Allergy Reaction COMPAZINE (PROCHLORPERAZINE EDISY*04/02/2009 9 - Itching Date Reviewed: 09/13/2024 Reviewed by: Chanda Ocasio APRN.PIVOT END POLISHER - Fully Assessed Reason for Visit: Established Patient [175] P (more content not included)... Normal [facility] SPENCER SCREENING W TOMOon 09-13 SPENCER SCREENING W SHANEL * * *Final Report* * * DATE OF EXAM: Sep 13 2024 10:02AM WRW [id number] - SPENCER SCREENING W SHANEL / PROCEDURE REASON: multiple diagnoses * * * * Physician Interpretation * * * * RESULT: [facility] [address] [place] [address] #[id number] - SPENCER SCREENING W SHANEL HISTORY: Patient is 74 years old and is seen for screening and is asymptomatic in both breasts. The patient has a history of left breast cancer more than 10 years ago. COMPARISON STUDIES: The present examination has been compared to prior imaging studies dated 08/17/2019 (mammogram), 02/22/2020 (mammogram), 02/22/2021 (mammogram), 01/15/2022 (mammogram) and 03/25/2023 (mammogram). MAMMOGRAM TECHNIQUE: The study was acquired using full field digital technology and interpreted from soft copy. Digital Breast Tomosynthesis (DBT) images were obtained and used to assist in the interpretation of this examination. MAMMOGRAM FINDINGS: The breasts are almost entirely fatty. There are no significant interval changes. The patient is status post reduction both breasts. The patient is status post lumpectomy left breast. The left breast has post operative findings. There is a stable benign dystrophic calcification in both breasts that correlates with surgical site. No suspicious masses, calcifications or other abnormalities are seen in either breast. IMPRESSION: There is no mammographic evidence of malignancy. Routine screening mammogram is recommended. Annual mammogram will be due in 1 year. BI-RADS Category 2: Benign Interpreting Radiologist: Kiki Day M.D. Electronically signed on: 09/14/2024 Stencil Printer: HIEU Transcribe Date/Time: Sep 13 2024 9:37A Dictated by: KIKI DAY MD This examination was interpreted and the report reviewed and electronically signed by: KIKI DAY MD on Sep 14 2024 12:22PM EST [id number] Normal [facility] CNPAllyson 09-08-2024 CNPN Telephone (SYLLETA) KARYN GONSALES ([id number]) 1950 F Date Time Provider Department 09/08/24 CHANDA OCASIO During your visit today, we recorded the following information about you: Saniya Oviedo LPN 09/08/2024 3:42 PM Signed Call placed to pt to discuss leg pain, pt states she has had leg pain for 6 weeks Pain in the front of her leg and into foot. She does note having back surgery a year ago. She walks at the [employer], but one evening 6 weeks ago she started to have pain,without injury. Went to ER, it was very busy and pt left without being seen.. Early in the AM the pain was worse and she called squad. She got set up with a back doctor and had back inj that was not helpful. Started on Gabapentin. Using walker due to pain. Recent MRI, has apt to review tomorrow with back surgeon. She has read the report which states New 7mm cyst L5 -S1 foraminal cyst causing stenosis, spondylosis. No mention of possible metastatic disease on report. Pt states she would like to make an apt with Chanda as she has concerns of bone mets. I advised patient she should keep her apt tomorrow with surgeon and see what the plan of care and diagnosis is first. Assured pt if there is concern of metastatic disease they will advise her to be seen here. Pt states she will call with update after the apt. She has not had a Mammogram since February 2023. DIANE Wu Darby, APRN.ANH 09/09/2024 8:55 AM Signed Noted. Agree. Please request copy of MRI. Chanda Ocasio APRN.Saniya Jerome LPN 09/09/2024 10:59 AM Signed Requested. DIANE Wu Ashley 09/09/2024 1:29 PM Signed [facility] called to report that the patient was not seen at their facility. Please contact patient to discuss where MRI was performed. Saniya Oviedo LPN 09/09/2024 2:05 PM Signed I sent a fax request this morning to [facility] to req MRI. I never requested an MRI from [facility]. Saniya Oviedo LPN [place] 09/12/2024 9:56 AM Signed Patient states that she spoke with surgeon on 09/09/24 and is scheduled for procedure on 10/11/24. Patient is wanting to speak with hem/onc clinical caregiver to discuss further details and schedule overdue mammogram. Juhi Mota LPN 09/12/2024 10:07 AM Signed Spoke with pt. She is due for mamm and OV with Chanda. She is late for both, but would like before her spinal fusion scheduled 10/11/[address] orders for mamm. DIANE Jessica Darby, APRN.ANH 09/12/2024 11:54 AM Signed Order in. OV after mamm. Chanda Ocasio APRN.Yaritza Elaine 09/12/2024 12:05 PM Signed Called patient and scheduled as directed Allergies As of Date: 09/08/2024 Noted Allergy Reaction COMPAZINE (PROCHLORPERAZINE EDISY*04/02/2009 9 - Itching Date Reviewed: 12/13/2023 Reviewed by: Cherrie Donis APRN.PIVOT END POLISHER - Fully Assessed Reason for Visit: Patient Update [1234] Primary Visit Diagnosis:Invasive ductal carcinoma of left breast in female (HCC) [C50.912] Other Visit Diagnosis:Encounter for screening mammogram for high-risk patient [Z12.31] Order(s):[facility] SCREENING W SHANEL [[id number]] Order #: [id number] FUTURE Prescriptions as of 09/12/2024 - ramipril (ALTACE) 5 mg capsule - famotidine (PEPCID) 20 mg tablet Take 1 tablet by mouth once daily. - hydrOXYzine HCl (ATARAX) 25 mg tablet Take 1 tablet by mouth three times daily as needed for anxiety. - FEROSUL 325 mg (65 mg iron) tablet Take 1 tablet by mouth once daily. - meclizine (ANTIVERT) 12.5 mg tab Take 1-2 tablets by mouth every 6 hours as needed (dizziness). - glimepiride (AMARYL) 2 mg tablet 2 mg once daily. - potassium chloride (K-TAB) 10 mEq tablet Take 10 mEq by mouth once daily. - letrozole (FEMARA) 2.5 mg tablet Take 1 tablet by mouth once daily - ergocalciferol 50,000 unit capsule (VITAMIN D2, DRISDOL) Take 50,000 Units by mouth one time a week. - metFORMIN (GLUCOPHAGE) 1,000 mg tablet Take 1,000 mg by mouth daily with breakfast. - escitalopram oxalate (LEXAPRO) 5 mg tablet Take 5 mg by mouth once daily. - rosuvastatin (CRESTOR) 5 mg tablet Take 5 mg by mouth once daily. - cyanocobalamin (VITAMIN B-12) 1,000 mcg/mL soln Inject 1 mL intramuscularly as directed. every 2 weeks - Hydrochlorothiazide 12.5 mg capsule Take 12.5 mg by mouth once daily. Problem List As Of Date 09/08/2024 Noted Resolved FAMILY HX GI MALIGNANCY [Z80.0] 04/02/2009 ANEMIA NOS [D64.9] 04/02/2009 Abnormal mammogram, unspecified [R92.8] 07/18/2011 Breast cancer [C50.919] 07/28/2011 Neutropenia [D70.9] 10/16/2011 Neutropenia, drug-induced [D70.2] 11/28/2011 Pain [R52] 06/04/2012 Personal history of colonic polyps [Z86.0100] 02/15/2015 Abnormal mammogram [R92.8] 08/07/2016 Invasive ductal carcinoma of left breast in fem*01/07/2017 H/O gastric bypass [Z98.84] 02/25/2017 Hypertensi (more content not included)... Normal [facility] [id number] DOrdered By: Servando Hester on 08-29-2024 Vitamin D 25-Hydroxy 60.6 ng/mL [facility] Comment on above: Vitamin D 25(OH) Sta tus Range Deficiency <20 ng/mL (50nmol/L) Insufficiency 20 - 30 ng/mL (50 - 75 nmol/L) Sufficiency 30 - 100 ng/mL (75 - 250 nmol/L) Toxicity >100 ng/mL (>250 nmol/L) Absolute neutrophil countOrd ered By: Miranda Hester on 08-29-2024 Neutrophils (Bld) [#/Vol] 4.5 10*3/uL 2.0-7.7 [facility] Albumin to globulin ratioOrd ered By: savisyracusesunny Hester on 08-29-2024 Albumin/Globulin [Mass ratio] 0.9 {ratio} 0.9-2.4 [facility] Basophil percentageOrdered B y: Miranda Hester on 08-29-2024 Basophils/100 WBC (Bld) 0.7 % 0-1 [facility] Bilirubin, totalOrdered By: Miranda Hester on 08-29-2024 Bilirubin [Mass/Vol] 0.30 mg/dL 0.20-1.00 [facility] Comment on above: For patients on eltr ombopag therapy, use of Dimension [place] TBIL is not recommended. Blood urea nitrogen (BUN)/cr eatinine ratioOrdered By: Cesarsaviroelsunny Evansmelizaservando on 08-29-2024 Urea nitrogen/Creatinine [Mass ratio] 21.8 mg/mg High 10-20 [facility] CBC W/Diff, Automatedon 08-02 Absolute Lymph 1.99 X10 3/uL Normal 0.83-4.51 [facility] Comment on above: Performed By: #### L 500.4100, L100.0100, L502.0250, L506.1000, L500.4050, L503.0105 #### [facility] [address] [place], [address] Absolute Neut 4.5 X10 3/uL Normal 2.0-7.7 [facility] Comment on above: Performed By: #### L 500.4100, L100.0100, L502.0250, L506.1000, L500.4050, L503.0105 #### [facility] [address] [place], [address] Basophils/100 WBC (Bld) 0.7 % Normal 0-1 [facility] Comment on above: Performed By: #### L 500.4100, L100.0100, L502.0250, L506.1000, L500.4050, L503.0105 #### [facility] [address] [place], [address] Eosinophils/100 WBC (Bld) 3.9 % Normal 0-5 [facility] Comment on above: Performed By: #### L 500.4100, L100.0100, L502.0250, L506.1000, L500.4050, L503.0105 #### [facility] [address] [place], [address] Erythrocyte distribution width (RBC) [Ratio] 16.8 % High 11.6-14.6 [facility] Comment on above: Performed By: #### L 500.4100, L100.0100, L502.0250, L506.1000, L500.4050, L503.0105 #### [facility] [address] [place], [address] Hematocrit (Bld) [Volume fraction] 37.7 % Normal 37-47 [facility] Comment on above: Performed By: #### L 500.4100, L100.0100, L502.0250, L506.1000, L500.4050, L503.0105 #### [facility] [address] [place], [address] Hemoglobin (Bld) [Mass/Vol] 11.6 g/dL Low 12.0-15.0 [facility] Comment on above: Performed By: #### L 500.4100, L100.0100, L502.0250, L506.1000, L500.4050, L503.0105 #### [facility] [address] [place], [address] IG% 0.300 Normal 0.0-0.9 [facility] Comment on above: Result Comment: IG% - Immature Granulocytes (promyelocytes, myelocytes and metamyelocytes) > 1% indicates that a LEFT SHIFT is Present. Performed By: #### L 500.4100, L100.0100, L502.0250, L506.1000, L500.4050, L503.0105 #### [facility] [address] [place], [address] Lymphocytes/100 WBC (Bld) 26.8 % Normal 19-41 [facility] Comment on above: Performed By: #### L 500.4100, L100.0100, L502.0250, L506.1000, L500.4050, L503.0105 #### [facility] [address] [place], [address] MCH (RBC) [Entitic mass] 26.2 pg Low 27.0-32.0 [facility] Comment on above: Performed By: #### L 500.4100, L100.0100, L502.0250, L506.1000, L500.4050, L503.0105 #### [facility] [address] [place], [address] MCHC (RBC) [Mass/Vol] 30.8 g/dL Low 32-36 [facility] Comment on above: Performed By: #### L 500.4100, L100.0100, L502.0250, L506.1000, L500.4050, L503.0105 #### [facility] [address] [place], [address] MCV (RBC) [Entitic vol] 85.1 fL Normal 81-99 [facility] Comment on above: Performed By: #### L 500.4100, L100.0100, L502.0250, L506.1000, L500.4050, L503.0105 #### [facility] [address] [place], [address] Monocytes/100 WBC (Bld) 7.4 % Normal 0-10 [facility] Comment on above: Performed By: #### L 500.4100, L100.0100, L502.0250, L506.1000, L500.4050, L503.0105 #### [facility] [address] [place], [address] Neutrophils/100 WBC (Bld) 60.9 % Normal 47-70 [facility] Comment on above: Performed By: #### L 500.4100, L100.0100, L502.0250, L506.1000, L500.4050, L503.0105 #### [facility] [address] [place], [address] Nucleated RBC (Bld) [#/Vol] 0 10*3/uL Normal 0-5 [facility] Comment on above: Performed By: #### L 500.4100, L100.0100, L502.0250, L506.1000, L500.4050, L503.0105 #### [facility] [address] [place], [address] Platelet mean volume (Bld) [Entitic vol] 9.7 fL Normal 6.2-12.0 [facility] Comment on above: Performed By: #### L 500.4100, L100.0100, L502.0250, L506.1000, L500.4050, L503.0105 #### [facility] [address] [place], [address] Platelets (Bld) [#/Vol] 364 10*3/uL Normal 150-450 [facility] Comment on above: Performed By: #### L 500.4100, L100.0100, L502.0250, L506.1000, L500.4050, L503.0105 #### [facility] [address] [place], [address] RBC (Bld) [#/Vol] 4.43 10*6/uL Normal 4.2-5.4 [facility] Comment on above: Performed By: #### L 500.4100, L100.0100, L502.0250, L506.1000, L500.4050, L503.0105 #### [facility] [address] [place], [address] RDW SD 52.0 fl High 35.1-43.9 [facility] Comment on above: Performed By: #### L 500.4100, L100.0100, L502.0250, L506.1000, L500.4050, L503.0105 #### [facility] [address] [place], [place], [address] [phone] WBC (Bld) [#/Vol] 7.4 10*3/uL Normal 4.4-11.0 [facility] Comment on above: Performed By: #### L 500.4100, L100.0100, L502.0250, L506.1000, L500.4050, L503.0105 #### [facility] [address] [facility] [place], [place], [id number] Carbon dioxide measurementOr dered By: Miranda Hester on 08-29-2024 CO2 [Moles/Vol] 23.0 mmol/L 21.0-32.0 [facility] Chloride measurementOrdered By: Miranda Hester on 08-29-2024 Chloride [Moles/Vol] 108 mmol/L High 98-107 [facility] Comprehensive Metabolic Prof ilon 08-29-2024 Albumin [Mass/Vol] 3.7 g/dL Normal 3.2-5.0 [facility] Comment on above: Performed By: #### L 500.4100, L100.0100, L502.0250, L506.1000, L500.4050, L503.0105 #### [facility] [address] [place], [address] Albumin/Globulin [Mass ratio] 0.9 {ratio} Normal 0.9-2.4 [facility] Comment on above: Performed By: #### L 500.4100, L100.0100, L502.0250, L506.1000, L500.4050, L503.0105 #### [facility] [address] [place], [address] ALK P 84 U/L Normal 45-117 [facility] Comment on above: Performed By: #### L 500.4100, L100.0100, L502.0250, L506.1000, L500.4050, L503.0105 #### [facility] [address] [place], [address] ALT [Catalytic activity/Vol] 26 U/L Normal 13-56 [facility] Comment on above: Performed By: #### L 500.4100, L100.0100, L502.0250, L506.1000, L500.4050, L503.0105 #### [facility] [address] [place], [address] AST [Catalytic activity/Vol] 27 U/L Normal 15-37 [facility] Comment on above: Performed By: #### L 500.4100, L100.0100, L502.0250, L506.1000, L500.4050, L503.0105 #### [facility] [address] [place], [address] Bilirubin [Mass/Vol] 0.30 mg/dL Normal 0.20-1.00 [facility] Comment on above: Result Comment: For patients on eltrombopag therapy, use of Dimension [place] TBIL is not recommended. Performed By: #### L 500.4100, L100.0100, L502.0250, L506.1000, L500.4050, L503.0105 #### [facility] [address] [place], [address] BUN/CRE 21.8 RATIO High 10-20 [facility] Comment on above: Performed By: #### L 500.4100, L100.0100, L502.0250, L506.1000, L500.4050, L503.0105 #### [facility] [address] [place], [address] CA,Total 9.5 mg/dL Normal 8.5-10.1 [facility] Comment on above: Performed By: #### L 500.4100, L100.0100, L502.0250, L506.1000, L500.4050, L503.0105 #### [facility] [address] [place], [address] Chloride [Moles/Vol] 108 mmol/L High 98-107 [facility] Comment on above: Performed By: #### L 500.4100, L100.0100, L502.0250, L506.1000, L500.4050, L503.0105 #### [facility] [address] [place], [address] CO2 [Moles/Vol] 23.0 mmol/L Normal 21.0-32.0 [facility] Comment on above: Performed By: #### L 500.4100, L100.0100, L502.0250, L506.1000, L500.4050, L503.0105 #### [facility] [address] [place], [address] Creatinine [Mass/Vol] 0.83 mg/dL Normal 0.55-1.02 [facility] Comment on above: Result Comment: The validity of the calculated GFR GFRAA in patients over 70 years has not been determined. Clinical correlation is essential. Performed By: #### L 500.4100, L100.0100, L502.0250, L506.1000, L500.4050, L503.0105 #### [facility] [address] [place], [address] EST GFR - AA 87 mL/min Normal >60 [facility] Comment on above: Result Comment: Afri can [place] GFR Calc Performed By: #### L 500.4100, L100.0100, L502.0250, L506.1000, L500.4050, L503.0105 #### [facility] [address] [place], [address] GAP 6 Normal 5-15 [facility] Comment on above: Performed By: #### L 500.4100, L100.0100, L502.0250, L506.1000, L500.4050, L503.0105 #### [facility] [address] [place], [address] GFR/1.73 sq M.predicted among non-blacks MDRD (S/P/Bld) [Vol rate/Area] 72 mL/min/{1.73_m2} Normal >60 [facility] Comment on above: Result Comment: Non- GFR Calc Performed By: #### L 500.4100, L100.0100, L502.0250, L506.1000, L500.4050, L503.0105 #### [facility] [address] [place], [address] Globulin (S) [Mass/Vol] 4.0 g/dL Normal 2.2-4.2 [facility] Comment on above: Performed By: #### L 500.4100, L100.0100, L502.0250, L506.1000, L500.4050, L503.0105 #### [facility] [address] [place], [address] Glucose [Mass/Vol] 81 mg/dL Normal 74-106 [facility] Comment on above: Performed By: #### L 500.4100, L100.0100, L502.0250, L506.1000, L500.4050, L503.0105 #### [facility] [address] [place], [address] Potassium [Moles/Vol] 3.8 mmol/L Normal 3.5-5.1 [facility] Comment on above: Performed By: #### L 500.4100, L100.0100, L502.0250, L506.1000, L500.4050, L503.0105 #### [facility] [address] [place], [address] Sodium [Moles/Vol] 137 mmol/L Normal 136-145 [facility] Comment on above: Performed By: #### L 500.4100, L100.0100, L502.0250, L506.1000, L500.4050, L503.0105 #### [facility] [address] [place], [address] T PROT 7.7 g/dL Normal 6.4-8.2 [facility] Comment on above: Performed By: #### L 500.4100, L100.0100, L502.0250, L506.1000, L500.4050, L503.0105 #### [facility] [address] [place], [address] Urea nitrogen [Mass/Vol] 18 mg/dL Normal 7-18 [facility] Comment on above: Performed By: #### L 500.4100, L100.0100, L502.0250, L506.1000, L500.4050, L503.0105 #### [facility] [address] [place], [address] Eosinophil percentageOrdered By: Miranda Hester on 08-29-2024 Eosinophils/100 WBC (Bld) 3.9 % 0-5 [facility] Erythrocyte distribution wid th (RBC) [Ratio]Ordered By: Miranda Hester on 08-29-2024 Erythrocyte distribution width (RBC) [Entitic vol] 52.0 fL High 35.1-43.9 [facility] Erythrocyte distribution wid th ratioOrdered By: Miranda Hester on 08-29-2024 Erythrocyte distribution width (RBC) [Ratio] 16.8 % High 11.6-14.6 [facility] Estimated glomerular filtrat ion rate (GFR) AmericanOrdered By: Miranda Hester on 08-29-2024 Estimated GFR (MDRD) Amer 87 mL/min >60 [facility] Comment on above: GFR Calc Glomerular filtration rate ( GFR) estimationOrdered By: Miranda Hester on 08-29-2024 Estimated GFR (MDRD) Non-Af Amer 72 mL/min >60 [facility] Comment on above: Non- GFR Calc Glucose measurementOrdered B y: Miranda Hester on 08-29-2024 Glucose [Mass/Vol] 81 mg/dL 74-106 [facility] Hematocrit Auto (Bld) [Volum e fraction]Ordered By: Miranda Hester on 08-29-2024 Hematocrit (Bld) [Volume fraction] 37.7 % 37-47 [facility] Hemoglobin measurementOrdere d By: Miranda Hester on 08-29-2024 Hemoglobin (Bld) [Mass/Vol] 11.6 g/dL Low 12.0-15.0 [facility] High density lipoprotein (HD L) measurementOrdered By: Miranda Hester on 08-29-2024 Cholesterol in HDL [Mass/Vol] 51 mg/dL >40 [facility] Comment on above: The drugs N-Acetylcy steine and Metamizole may falsely depress this assay. Reference Range HDL <40 mg/dL Low HDL Cholesterol HDL >or= 60 mg/dL High HDL Cholesterol Immature granulocytes/100 WB C Auto (Bld)Ordered By: Miranda Hester on 08-29-2024 Immature granulocytes/100 WBC (Bld) 0.300 % 0.0-0.9 [facility] Comment on above: IG% - Immature Granu locytes (promyelocytes, myelocytes and metamyelocytes) > 1% indicates that a LEFT SHIFT is Present. Internal Medicine Office Vis santhosh 08-29-2024 Internal Medicine Office Visit [facility] [address] [place], [place] [address] OFFICE VISIT Date of Service: 08/29/24 MR#: [id number] Acct: [id number] Name: KARYN GONSALES Rep #: [id number] : 1950 Provider: Dr. Miranda barba MD Age/Sex: 74/F Location: [facility] Status: Signed with Addenda ADDENDUM by Dr. Miranda Hester MD on 09/23/24 at 1655 HPI Details: KARYN GONSALES, is a 74 F who presents to the office today for Assessment and Plan Assessment and Plan (1) Lumbar radiculopathy: Status: Chronic (2) Type 2 diabetes mellitus: Status: Chronic Qualifiers: Diabetes mellitus intermediate insulin use: without power hair clipper use Diabetes mellitus complication status: with other specified complication Qualified Code(s): E11.69 - Type 2 diabetes mellitus with other specified complication (3) HTN (hypertension): Status: Chronic Qualifiers: Hypertension type: primary hypertension Qualified Code(s): I10 - Essential (primary) hypertension (4) Hyperlipidemia: Status: Chronic (5) Preoperative evaluation to rule out surgical contraindication: Status: Acute Plan: Scheduled for L4, L5 revision of decompression discectomy right L4-L5 pedicle instrumentation interbody fusion. This will be done at the [facility]. Has had surgeries in the past and tolerated these well. At her last visit, there were no concerns for chest pain, shortness of breath or palpitation. Main concern was with extremity pain for which she is about to have surgery. Labs done at her last visit reviewed, no acute concerns, grossly stable. Updated EKG ordered, will review. Currently not on anticoagulation. RCRI class I risk. Recommend optimal perioperative blood pressure and diabetes control. Hold glimepiride on the morning of surgery. Continue other medications perioperatively. No contraindication to upcoming surgery. Orders: Orders POC A1C 08/29/24 E11.69 - Type 2 diabetes mellitus with other specified complication Medications: Discontinued meloxicam Discontinued Reason: Discontinued by PCP/other physicians 15 mg PO QDAY 09/23/24 1655 Date Miranda Hester MD cc: * Signed Intake Vital Signs 05/25/24 14:16 07/26/24 03:02 08/29/24 09:05 Height 5 ft 1 in 5 ft 1 in 5 ft 1 in Weight: 142 lb BMI 26.8 BP 128/86 H Blood Pressure Location Lt brachial Position Sitting Respiration 16 Pulse 100 Pulse Source Monitor Temp 97.6 F L Temp Source Temporal Pulse Oximetry (%) 98 Oxygen Delivery Method room air Intake Visit Reasons: 3 M FU Chief Complaint: Follow-up chronic conditions Donor Processor Required: No Accompanied by: Self Is patient in pain?: Yes (leg) Pain scale (1-10): 10 Allergies prochlorperazine (From Compazine) Allergy (Verified 08/29/24 08:55) Other NSAIDS (Non-Steroidal Anti-Inflamma Adverse Reaction (Verified 08/29/24 08:55) Upset Stomach Medications ???Medication ???Instructions ???Recorded ???Confirmed ???Type compr.stocking,thigh,s hort,med #4 ea 02/15/21 08/29/24 Rx blood sugar diagnostic (Blood #100 ea 04/22/21 08/29/24 Rx Glucose Test strips) blood-glucose meter (Blood Glucose #1 ea 04/22/21 08/29/24 Rx Monitoring kit) blood sugar diagnostic (Accu-Chek #200 ea 10/28/21 08/29/24 Rx Guide test strips) lancets 17 gauge (Acti-Sid #300 ea 11/05/21 08/29/24 Rx Lancets) potassium chloride 10 mEq See Rx Instructions .Route 03/16/23 08/29/24 Rx tablet,extended release .COMPLEX #90 tabs cyanocobalamin (vitamin B-12) See Rx Instructions .Route 07/10/23 08/29/24 Rx 1,000 mcg/mL injection solution .COMPLEX #10 mL ferrous sulfate 325 mg (65 mg 325 mg PO DAILY #90 tabs 02/08/24 08/29/24 Rx iron) tablet ramipril 5 mg capsule 5 mg PO DAILY #90 CAPSULES 02/08/24 08/29/24 Rx rosuvastatin 10 mg tablet 10 mg PO DAILY #60 tabs 02/10/24 08/29/24 Rx glimepiride 2 mg tablet 2 mg PO QAM #90 tabs 06/17/24 08/29/24 Rx hydrochlorothiazide 12.5 mg capsule See Rx Instructions .Route 06/17/24 08/29/24 Rx .COMPLEX #90 caps metformin 1,000 mg tablet 1,000 mg PO DAILY #90 tabs 06/17/24 08/29/24 Rx cholecalciferol (vitamin D3) 1,250 See Rx Instructions .Route 06/27/24 08/29/24 Rx mcg (50,000 unit) capsule .COMPLEX #12 caps gabapentin 300 mg capsule 300 mg PO TID 14 days #42 caps 07/26/24 08/29/24 Rx methocarbamol 500 mg tablet 500 mg PO 4X/DAY PRN Muscle 07/26/24 08/29/24 Rx pain/spasm #40 tabs ondansetron 4 mg disintegrating 4 mg PO TID PRN nausea and 07/26/24 08/29/24 Rx tablet vomiting #21 tabs hydrocodone-acetaminop hen 5-325mg 1 tab PO TID PRN 08/29/24 08/29/24 History 5mg-325mg tumric PO 08/29/24 History Have you fallen in the past year?: No Nurse's Note: pt stats right whole leg pain, states up all night due to pain. unabl (more content not included)... Normal [facility] - Chemistry and C hemistry - challengeOrdered By: Miranda Hester on 08-29-2024 AST [Catalytic activity/Vol] 27 U/L 15- [facility] - Hematology and Cell countson 08-29-2024 HbA1c (Bld) [Mass fraction] 6.7 % High 4.2-6.3 [facility] Lipid Profileon 08-29-2024 Cholesterol [Mass/Vol] 142 mg/dL Normal 200 [facility] Comment on above: Result Comment: <200 mg/dL Desirable 200-240 mg/dL Borderline >240 mg/dL High Risk Performed By: #### L 500.4100, L100.0100, L502.0250, L506.1000, L500.4050, L503.0105 #### [facility] [address] [place], [address] Cholesterol in HDL [Mass/Vol] 51 mg/dL Normal [facility] Comment on above: Result Comment: The drugs N-Acetylcysteine and Metamizole may falsely depress this assay. Reference Range HDL <40 mg/dL Low HDL Cholesterol HDL >or= 60 mg/dL High HDL Cholesterol Performed By: #### L 500.4100, L100.0100, L502.0250, L506.1000, L500.4050, L503.0105 #### [facility] [address] [place], [address] Cholesterol in LDL [Mass/Vol] 53 mg/dL Normal 0-130 [facility] Comment on above: Performed By: #### L 500.4100, L100.0100, L502.0250, L506.1000, L500.4050, L503.0105 #### [facility] [address] [place], [address] Cholesterol in VLDL [Mass/Vol] 38 mg/dL Normal 5-40 [facility] Comment on above: Performed By: #### L 500.4100, L100.0100, L502.0250, L506.1000, L500.4050, L503.0105 #### [facility] [address] [place], [address] Triglyceride [Mass/Vol] 191 mg/dL Normal [facility] Comment on above: Result Comment: The drugs N-Acetylcysteine and Metamizole may falsely depress this assay. Serum Triglycerides Reference Interval Normal <150 mg/dL Borderline high 150 - 199 mg/dL High 200 - 499 mg/dL Very High > or = 500 mg/dL Performed By: #### L 500.4100, L100.0100, L502.0250, L506.1000, L500.4050, L503.0105 #### [facility] [address] [place], [place], [id number] Low density lipoprotein (LDL ) cholesterol measurementOrdered By: Miranda Hester on 08-29-2024 Cholesterol in LDL [Mass/Vol] 53 mg/dL 0-130 [facility] Lymphocytes Auto (Unsp spec) [#/Vol]Ordered By: savisyracusesunny Evansmelizaservando on 08-29-2024 Lymphocytes (Bld) [#/Vol] 1.99 10*3/uL 0.83-4.5 1 [facility] Lymphocytes/100 WBC Auto (Un sp spec)Ordered By: kathryn Evansmelizaservando on 08-29-2024 Lymphocytes/100 WBC (Bld) 26.8 % 19-41 [facility] MCV (mean corpuscular volume ) determinationOrdered By: Leonsyracusesunny Hester on 08-29-2024 MCV (RBC) [Entitic vol] 85.1 fL 81-99 [facility] Mean corpuscular hemoglobin (MCH) determinationOrdered By: savisyracusesunny Hester on 08-29-2024 MCH (RBC) [Entitic mass] 26.2 pg Low 27.0-32.0 [facility] Mean corpuscular hemoglobin concentration (MCHC) determinationOrdered By: savisyracusesunny Hester on 08-29-2024 MCHC (RBC) [Mass/Vol] 30.8 g/dL Low 32-36 [facility] Mean platelet volume determi nationOrdered By: [facility] Brunswicksunny Evansservando on 08-29-2024 Platelet mean volume (Bld) [Entitic vol] 9.7 fL 6.2-12.0 [facility] Microalb:Creat Ratio,Random URon 08-29-2024 Creatinine [Mass/Vol] 73.80 mg/dL Normal NO RAN GE EST. [facility] Comment on above: Performed By: #### L 500.4100, L100.0100, L502.0250, L506.1000, L500.4050, L503.0105 #### [facility] [address] [place], [place], [id number] MALB:CRE 14.9 mg/g CRE Normal <30 mg/g CRE [facility] Comment on above: Performed By: #### L 500.4100, L100.0100, L502.0250, L506.1000, L500.4050, L503.0105 #### [facility] [address] [place], [place], [id number] MICROALBUMIN,UR 11.0 mg/L Normal NO RANGE EST. [facility] Comment on above: Performed By: #### L 500.4100, L100.0100, L502.0250, L506.1000, L500.4050, L503.0105 #### [facility] [address] [place], [place], [id number] Monocyte percentageOrdered B y: Miranda Hester on 08-29-2024 Monocytes/100 WBC (Bld) 7.4 % 0-10 [facility] Neutrophil percentageOrdered By: Miranda Hester on 08-29-2024 Neutrophils/100 WBC (Bld) 60.9 % 47-70 [facility] Nucleated red blood cell per centageOrdered By: Miranda Hester on 08-29-2024 Nucleated RBC/100 WBC (Bld) [Ratio] 0 % 0-5 [facility] Platelet countOrdered By: Cesar Hester on 08-29-2024 Platelets (Bld) [#/Vol] 364 10*3/uL 150-450 [facility] Potassium measurementOrdered By: Miranda Hester on 08-29-2024 Potassium [Moles/Vol] 3.8 mmol/L 3.5-5.1 [facility] RBC Auto (Bld) [#/Vol]Ordere d By: Miranda Hester on 08-29-2024 RBC (Bld) [#/Vol] 4.43 10*6/uL 4.2-5.4 [facility] Random urine microalbumin me asurementOrdered By: Miranda Hester on 08-29-2024 Urine Random Microalbumin 11.0 mg/L NO RANGE EST. [facility] Serum anion gap measurementO rdered By: Miranda Hester on 08-29-2024 Anion gap [Moles/Vol] 6 mmol/L 5-15 [facility] Serum globulin measurementOr dered By: Miranda Hester on 08-29-2024 Globulin (S) [Mass/Vol] 4.0 g/dL 2.2-4.2 [facility] Serum or plasma alanine joshi otransferase (ALT) measurementOrdered By: Miranda Hester on 08-29-2024 ALT [Catalytic activity/Vol] 26 U/L 13-56 [facility] Serum or plasma albumin zarina urement (mass/volume)Ordered By: Miranda Hester on 08-29-2024 Albumin [Mass/Vol] 3.7 g/dL 3.2-5.0 [facility] Serum or plasma alkaline onesimo sphatase measurementOrdered By: Miranda Hester on 08-29-2024 ALP [Catalytic activity/Vol] 84 U/L 45-117 [facility] Serum or plasma calcium zarina urement (mass/volume)Ordered By: Miranda Hester on 08-29-2024 Calcium [Mass/Vol] 9.5 mg/dL 8.5-10.1 [facility] Serum or plasma cholesterol measurement (mass/volume)Ordered By: Miranda Hester on 08-29-2024 Cholesterol [Mass/Vol] 142 mg/dL <200 [facility] Comment on above: <200 mg/dL Desirable 200-240 mg/dL Borderline >240 mg/dL High Risk Serum or plasma creatinine m easurement (mass/volume)Ordered By: Miranda Hester on 08-29-2024 Creatinine [Mass/Vol] 0.83 mg/dL 0.55-1.02 [facility] Comment on above: The validity of the calculated GFR & GFRAA in patients over 70 years has not been determined. Clinical correlation is essential. Serum or plasma urea nitroge n measurement (mass/volume)Ordered By: Miranda Hester on 08-29-2024 Urea nitrogen [Mass/Vol] 18 mg/dL 7-18 [facility] Sodium levelOrdered By: Leon Hester on 08-29-2024 Sodium [Moles/Vol] 137 mmol/L 136-145 [facility] Total proteinOrdered By: Jeff marlin Kacie on 08-29-2024 Protein [Mass/Vol] 7.7 g/dL 6.4-8.2 [facility] Triglycerides measurementOrd ered By: Miranda Hester on 08-29-2024 Triglyceride [Mass/Vol] 191 mg/dL <199 [facility] Comment on above: The drugs N-Acetylcy steine and Metamizole may falsely depress this assay.Serum Triglycerides Reference Interval Normal <150 mg/dL Borderline high 150 - 199 mg/dL High 200 - 499 mg/dL Very High > or = 500 mg/dL Urine albumin/creatinine rat io for detection of microalbuminuriaOrdered By: Miranda Hester on 08-29-2024 Urine Microalbumin/Creatinine Ratio 14.9 mg/g CRE <30 [facility] Urine creatinine measurement (mass/volume)Ordered By: Miranda Hester on 08-29-2024 Creatinine (U) [Mass/Vol] 73.80 mg/dL NO RANGE EST. [facility] Very low density lipoprotein (VLDL) cholesterol measurementOrdered By: Mirnada Hester on 08-29-2024 VLDL Cholesterol 38 mg/dL 5-40 [facility] Vitamin B12on 08-29-2024 Cobalamin (Vitamin B12) [Mass/Vol] 1037 pg/mL High 211-911 [facility] Comment on above: Performed By: #### L 500.4100, L100.0100, L502.0250, L506.1000, L500.4050, L503.0105 #### [facility] [place], [address] Vitamin B12 measurementOrder ed By: Miranda Hester on 08-29-2024 Cobalamin (Vitamin B12) [Mass/Vol] 1037 pg/mL High 211-911 [facility] Vitamin D,25 Hydroxyon 08-29 Vitamin D 25-OH 60.6 ng/mL Normal [facility] Comment on above: Result Comment: Abby min D 25(OH) Status Range Deficiency <20 ng/mL (50nmol/L) Insufficiency 20 - 30 ng/mL (50 - 75 nmol/L) Sufficiency 30 - 100 ng/mL (75 - 250 nmol/L) Toxicity >100 ng/mL (>250 nmol/L) Performed By: #### L 500.4100, L100.0100, L502.0250, L506.1000, L500.4050, L503.0105 #### [facility] [address] [facility] [place], [address] White blood cell (WBC) count Ordered By: Miranda Hester on 08-29-2024 WBC (Bld) [#/Vol] 7.4 10*3/uL 4.4-11.0 [facility] Emergency Department Summary on 07-26-2024 Emergency Department Summary [facility] Medical Records Department [address] [place] [address] Emergency Department Summary 07/26/24 MR#: [id number] Acct: [id number] Name: KARYN GONSALES Rep #: [id number] : 1950 74 From: Hiram Matthew DO PCP: Dr. Miranda Hester MD Status:REG ER Location: ED HPI History of Present Illness Chief Complaint: Back Informant: patient and spouse/S.O. Narrative Narrative: Patient is a 74-year-old female with past medical history of hypertension hyperlipidemia and type 2 diabetes. She states roughly 1 year ago she had her L4-L5 vertebrae fixed. She states she walks 4 miles a day. She states that there is been no recent trauma and she denies any loss of bowel bladder control or IV drug use. However over the last 1 to 2 days she has been having increasing posterior right leg pain. She states the pain seems to originate around the mid buttocks region and will radiate all the way down to her toes. She states that it is constantly painful and that it is difficult to move her leg or ambulate secondary to the symptoms. She also reports that it feels numb. 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 Varicose veins of left leg with edema Cervical radiculopathy Left arm pain Left breast mass Abnormal mammogram of right breast Anemia Breast cancer HTN (hypertension) Diabetes High cholesterol Home Medications ???Medication ???Instructions ???Recorded ???Last Taken ???Type compr.stocking,thigh,s hort,med #4 ea 02/15/21 Unknown Rx blood sugar diagnostic (Blood #100 ea 04/22/21 Unknown Rx Glucose Test strips) blood-glucose meter (Blood Glucose #1 ea 04/22/21 Unknown Rx Monitoring kit) blood sugar diagnostic (Accu-Chek #200 ea 10/28/21 Unknown Rx Guide test strips) lancets 17 gauge (Acti-Sid #300 ea 11/05/21 Unknown Rx Lancets) potassium chloride 10 mEq See Rx Instructions .Route 03/16/23 Unknown Rx tablet,extended release .COMPLEX #90 tabs cyanocobalamin (vitamin B-12) See Rx Instructions .Route 07/10/23 Unknown Rx 1,000 mcg/mL injection solution .COMPLEX #10 mL ferrous sulfate 325 mg (65 mg 325 mg PO DAILY #90 tabs 02/08/24 Unknown Rx iron) tablet ramipril 5 mg capsule 5 mg PO DAILY #90 CAPSULES 02/08/24 Unknown Rx rosuvastatin 10 mg tablet 10 mg PO DAILY #60 tabs 02/10/24 Unknown Rx naltrexone 8 mg-bupropion 90 mg 2 tab PO BID 3 months #360 tabs 05/25/24 Unknown Rx tablet,extended release (Contrave) baclofen 10 mg tablet 10 mg PO QHS PRN muscle spasm #30 05/30/24 Unknown Rx tabs glimepiride 2 mg tablet 2 mg PO QAM #90 tabs 06/17/24 Unknown Rx hydrochlorothiazide 12.5 mg capsule See Rx Instructions .Route 06/17/24 Unknown Rx .COMPLEX #90 caps metformin 1,000 mg tablet 1,000 mg PO DAILY #90 tabs 06/17/24 Unknown Rx cholecalciferol (vitamin D3) 1,250 See Rx Instructions .Route 06/27/24 Unknown Rx mcg (50,000 unit) capsule .COMPLEX #12 caps gabapentin 300 mg capsule 300 mg PO TID 14 days #42 caps 07/26/24 Unknown Rx methocarbamol 500 mg tablet 500 mg PO 4X/DAY PRN Muscle 07/26/24 Unknown Rx pain/spasm #40 tabs ondansetron 4 mg disintegrating 4 mg PO TID PRN nausea and 07/26/24 Unknown Rx tablet vomiting #21 tabs oxycodone 5 mg tablet 5 mg PO Q6H PRN pain 5 days #20 07/26/24 Unknown Rx tabs Allergy/AdvReac Type Severity Reaction Status Date / Time prochlorperazine (From Allergy Other Verified 07/26/24 03:01 Compazine) NSAIDS (Non-Steroidal AdvReac Upset Verified 07/26/24 03:01 Anti-Inflamma Stomach Family History Mother Cancer Pancreatic cancer Diabetes Depression Sister Cancer Lung cancer Father Colon cancer Heart disease Myocardial infarction Hypertension CVA (cerebral vascular accident) Sister Cancer Kidney cancer Thyroid disorder Other Anxiety Surgical History History of back surgery History of revision of total knee arthroplasty History Panniculectomy History of left cataract surgery History of partial mastectomy of left breast History of breast reconstruction history of stomach surgery History of cholecystectomy H/O tubal ligation History of gastric bypass Social History (more content not included)... Normal [facility] Spine Lumbar without Contras ton 07-26-2024 Spine Lumbar without Contrast [facility] [address] [place] [address] Spine Lumbar without Contrast MR#: [id number] Acct: [id number] Name: KARYN GONSALES Rep #: [id number] : 1950 F 74 From: Nadia Dobson MD PCP: Dr. Miranda Hester MD Status: REG ER Study: Spine Lumbar without Contrast Date of Exam: Exam# [id number] Ordering Dr: Hiram Matthew DO [id number] STUDY: CT LUMBAR SPINE WITHOUT CONTRAST REASON FOR EXAM: Female, 74 years old patient with lumbar radiculopathy. RADIATION DOSAGE (If Supplied By Facility): CTDIvol = ( 13.91 ) mGy, DLP = ( 477.16 ) mGycm TECHNIQUE: The patient was scanned in a multi detector CT scanner. High resolution transaxial imaging was performed. Images were obtained from T10 to sacrum. Sagittal and coronal images were reconstructed. Individualized dose optimization techniques were used for this CT. COMPARISON: MRI lumbar spine dated March 04, 2023. FINDINGS: There is an exaggerated lumbar lordosis. There is a thoracolumbar scoliosis with convexity towards the left. Estimated angulation of the scoliosis is approximately 25 degrees. The bones appear osteopenic. Imaged thoracic and lumbar vertebral bodies have normal heights. There is no demonstrated compression deformity or fracture of the visualized lumbar vertebrae. There are Schmorl''s nodes at the endplates of T11 and T12. L1-2: There is mild annular disk bulge and osteophyte complex. There is mild degenerative arthropathy of the facet joints. Bilateral neuroforamina are narrowed. There is no appreciable acquired central canal stenosis. L2-3: There is mild annular disk bulge and osteophyte complex. There is mild degenerative arthropathy of the facet joints. Bilateral neuroforamina are narrowed. There is no appreciable acquired central canal stenosis. L3-4: There is mild annular disk bulge and osteophyte complex. There is mild degenerative arthropathy of the facet joints. Bilateral neuroforamina are narrowed. There is no appreciable acquired central canal stenosis. L4-5: There is narrowing of disc space and vacuum disc phenomenon. The patient appears to have had laminectomies of L5. There is mild annular disk bulge and osteophyte complex. There is mild degenerative arthropathy of the facet joints. Bilateral neuroforamina are narrowed. There is no appreciable acquired central canal stenosis. L5-S1: There is mild annular disk bulge and osteophyte complex. There is mild degenerative arthropathy of the facet joints. Bilateral neuroforamina are narrowed. There is no appreciable acquired central canal stenosis. Normal visualized paraspinous soft tissue structures. There is mild vascular calcification of the abdominal aorta. CT/Spine Lumbar without Contrast IMPRESSION: 1. No CT evidence of acute compression or displaced fracture. 2. Postoperative changes of the lumbar spine at L4-5. 3. Multilevel degenerative changes of the lumbar spine, as described. Electronically Signed: Nadia Dobson MD at 4:54 EST Reading Location ID and State: [facility] / [place] , Service support , CC: Dr. Miranda Hester MD; Hiram Matthew DO Stencil Printer: Signed Normal [facility] Internal Medicine Office Vis iton 05-25-2024 Internal Medicine Office Visit [facility] [place] [address] [place] [address] OFFICE VISIT Date of Service: 05/25/24 MR#: [id number] Acct: [id number] Name: KARYN GONSALES Rep #: [id number] : 1950 Provider: Dr. Miranda barba MD Age/Sex: 74/F Location: [facility] Status: Signed Intake Vital Signs 02/10/24 15:11 05/25/24 14:16 Height 5 ft 1 in 5 ft 1 in Weight: 148 lb BMI 27.9 BP 130/70 H Blood Pressure Location Rt brachial Position Sitting Respiration 17 Pulse 86 Pulse Source Monitor Temp 97.1 F L Temp Source Temporal Pulse Oximetry (%) 98 Oxygen Delivery Method room air Intake Visit Reasons: fu Chief Complaint: Follow-up chronic conditions Is patient in pain?: No Allergies prochlorperazine (From Compazine) Allergy (Verified 05/25/24 14:15) Other NSAIDS (Non-Steroidal Anti-Inflamma Adverse Reaction (Verified 05/25/24 14:15) Upset Stomach Medications ???Medication ???Instructions ???Recorded ???Confirmed ???Type compr.stocking,thigh,s hort,med #4 ea 02/15/21 05/25/24 Rx blood sugar diagnostic (Blood #100 ea 04/22/21 05/25/24 Rx Glucose Test strips) blood-glucose meter (Blood Glucose #1 ea 04/22/21 05/25/24 Rx Monitoring kit) blood sugar diagnostic (Accu-Chek #200 ea 10/28/21 05/25/24 Rx Guide test strips) lancets 17 gauge (Acti-Sid #300 ea 11/05/21 05/25/24 Rx Lancets) hydrochlorothiazide 12.5 mg capsule See Rx Instructions .Route 03/16/23 05/25/24 Rx .COMPLEX #90 caps potassium chloride 10 mEq See Rx Instructions .Route 03/16/23 05/25/24 Rx tablet,extended release .COMPLEX #90 tabs cholecalciferol (vitamin D3) 1,250 See Rx Instructions .Route 04/09/23 05/25/24 Rx mcg (50,000 unit) capsule .COMPLEX #12 caps cyanocobalamin (vitamin B-12) See Rx Instructions .Route 07/10/23 05/25/24 Rx 1,000 mcg/mL injection solution .COMPLEX #10 mL glimepiride 2 mg tablet 2 mg PO QAM #90 tabs 07/10/23 05/25/24 Rx metformin 1,000 mg tablet 1,000 mg PO DAILY #90 tabs 10/16/23 05/25/24 Rx ferrous sulfate 325 mg (65 mg 325 mg PO DAILY #90 tabs 02/08/24 05/25/24 Rx iron) tablet ramipril 5 mg capsule 5 mg PO DAILY #90 CAPSULES 02/08/24 05/25/24 Rx rosuvastatin 10 mg tablet 10 mg PO DAILY #60 tabs 02/10/24 05/25/24 Rx naltrexone 8 mg-bupropion 90 mg 2 tab PO BID 3 months #360 tabs 05/25/24 05/25/24 Rx tablet,extended release (Contrave) Have you fallen in the past year?: No [facility] Medical History (Updated 05/25/24 @ 15:[address] 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 Varicose veins of left leg with edema Cervical radiculopathy Left arm pain Left breast mass Abnormal mammogram of right breast Anemia Breast cancer HTN (hypertension) Diabetes High cholesterol Surgical History History of back surgery History of revision of total knee arthroplasty History Panniculectomy History of left cataract surgery History of partial mastectomy of left breast History of breast reconstruction history of stomach surgery History of cholecystectomy H/O tubal ligation History of gastric bypass Family History Mother Cancer Pancreatic cancer Diabetes Depression Sister Cancer Lung cancer Father Colon cancer Heart disease Myocardial infarction Hypertension CVA (cerebral vascular accident) Sister Cancer Kidney cancer Thyroid disorder Other Anxiety Social History Smoking Status: Never smoker second hand exposure: No alcohol intake: never what type of physical activity do you participate in: none HPI HPI Chief Complaint: Follow-up chronic conditions Details: KARYN GONSALES, is a 74 F who presents to the office today for follow-up of her chronic medical conditions. Also has some concerns. History of weight loss surgery about 20 years ago. She states that she has tried to pay close attention to her diet and stay active however lately, becoming increasingly difficult to maintain her weight. Currently at a BMI of 27.9. She has questions about GLP-1's. History of diabetes mellitus type 2 which for the most part has been well-controlled. A1c is at 6.6 up from 6.2 3 months ago. On glimepiride and metformin which she is taking as prescribed. History of radiculopathy, follows up with Ortho at the [facility] and recommendation at this time is for pain manage (more content not included)... Normal [facility] Kee 12-13-2023 CNOV Office Visit (UCWSTR ) KARYN GONSALES ([id number]) 1950 F Date Time Provider Department 12/13/23 8:15 AM CHERRIE DONIS During your visit today, we recorded the following information about you: Temperature Pulse Respiration Blood pressure 96.9 degrees 90/minute 21/minute 128/76 Weight 69 kg Cherrie Donis APRN.[employer] 12/13/2023 8:46 AM Signed Subjective HPI HPI Karyn Gonsales is a 73 year old female who presents today for CC of sinus pressure. This started 1 week ago/worsening now. Has tried otc medication for relief. Symptoms are worsened by nothing. Risk factors hx of sinusitis. nonsmoker. Patient not well known to [facility], denies renal/hepatic disease. .Patient presents with: Sinus Problem: Sinus drainage, green mucus x 1 week PAST MEDICAL HISTORY Diagnosis Date Diverticulosis [...] FLX DX W/COLLJ SPEC WHEN PFRMD 03-13-15 ESOPHAGOGASTRODUODENOS COPY TRANSORAL DIAGNOSTIC 12/2001 EGD GASTRIC BYPASS 05/26/2003 LAPAROSCOPIC APPENDECTOMY 2002 with gastric bypass LIG/TRNSXJ FLP TUBE ABDL/VAG APPR UNI/BI Tubal ligation LIG/TRNSXJ FLP TUBE ABDL/VAG APPR UNI/BI about 20 years ago LUMPECTOMY/RADIOTHERAP Y DIAG MAMM/A10 1987 benign MASTECTOMY, PARTIAL 08-06-11 LEFT PAST SURGICAL HISTORY OF 10/2015 [facility] body surgery REDUCTION OF LARGE BREAST STEREO LOC FOR CORE BRST BX LT 07-21-11 ALLERGIES Compazine [Prochlorperazine Edisylate] MEDICATIONS ramipril (ALTACE) 5 mg capsule FEROSUL 325 mg (65 mg iron) tablet Take 1 tablet by mouth once daily. glimepiride (AMARYL) 2 mg tablet 2 mg once daily. potassium chloride (K-TAB) 10 mEq tablet Take 10 mEq by mouth once daily. ergocalciferol 50,000 unit capsule (VITAMIN D2, DRISDOL) Take 50,000 Units by mouth one time a week. metFORMIN (GLUCOPHAGE) 1,000 mg tablet Take 1,000 mg by mouth daily with breakfast. cyanocobalamin (VITAMIN B-12) 1,000 mcg/mL soln Inject 1 mL intramuscularly as directed. every 2 weeks Hydrochlorothiazide 12.5 mg capsule Take 12.5 mg by mouth once daily. amoxicillin-clavulanat e potassium (AUGMENTIN) 875-125 mg per tablet Take 1 tablet by mouth two times a day for 7 days. famotidine (PEPCID) 20 mg tablet Take 1 tablet by mouth once daily. (Patient not taking: Reported on 12/13/2023) hydrOXYzine HCl (ATARAX) 25 mg tablet Take 1 tablet by mouth three times daily as needed for anxiety. (Patient not taking: Reported on 12/13/2023) meclizine (ANTIVERT) 12.5 mg tab Take 1-2 tablets by mouth every 6 hours as needed (dizziness). (Patient not taking: Reported on 12/13/2023) letrozole (FEMARA) 2.5 mg tablet Take 1 tablet by mouth once daily (Patient not taking: Reported on 12/13/2023) escitalopram oxalate (LEXAPRO) 5 mg tablet Take 5 mg by mouth once daily. (Patient not taking: Reported on 12/13/2023) rosuvastatin (CRESTOR) 5 mg tablet Take 5 mg by mouth once daily. (Patient not taking: Reported on 12/13/2023) FAMILY HISTORY Problem Relation Age of Onset [...] Constitutional: Negative for fever. HENT: Positive for congestion and ear pain. Negative for ear discharge, nosebleeds, sinus pain and sore throat. Respiratory: Negative for cough, shortness of breath and wheezing. Musculoskeletal: Negative for neck pain. Objective Blood pressure 128/76, pulse 90, temperature 36.1 ?C (96.9 ?F), resp. rate 21, weight 69 kg (152 lb 1.9 oz), SpO2 97%. Physical Exam Constitutional: General: She is not in acute distress. Appearance: She is not toxic-appearing or diaphoretic. HENT: Head: Normocephalic and atraumatic. Right Ear: Hearing, tympanic membrane, ear canal and external ear normal. Left Ear: Hearing, tympanic membrane, ear canal and external ear normal. Nose: Nose normal. Mouth/Throat: Pharynx: Uvula midline. No pharyngeal swelling, oropharyngeal exudate, posterior oropharyngeal e (more content not included)... Normal [facility] Basophil percentageOrdered B y: Miranda Hester on 10-16-2023 Chloride [Moles/Vol] 106 mmol/L 98-107 [facility] Glucose [Mass/Vol] 134 mg/dL 74-106 [facility] Comment on above: Fasting Glucose resu lt greater than or equal to 126 mg/dL suggests DIABETES MELLITUS per A.D.A. criteria. Potassium [Moles/Vol] 4.2 mmol/L 3.5-5.1 [facility] Sodium [Moles/Vol] 138 mmol/L 136-145 [facility] Laboratory - Chemistry and C hemistry - challengeOrdered By: Miranda Hester on 10-16-2023 CO2 [Moles/Vol] 24.0 mmol/L 21.0-32.0 [facility] Cobalamin (Vitamin B12) [Mass/Vol] 867 pg/mL 211-911 [facility] Urea nitrogen/Creatinine [Mass ratio] 21.6 mg/mg 10-20 [facility] Laboratory - Hematology and Cell countson 10-16-2023 HbA1c (Bld) [Mass fraction] 6.2 % 4.2-6.3 [facility] No Panel InformationOrdered By: Miranda Hester on 10-16-2023 Estimated GFR (MDRD) Amer 68 mL/min >60 [facility] Comment on above: GFR Calc Estimated GFR (MDRD) Non-Af Amer 56 mL/min >60 [facility] Comment on above: Non- GFR Calc Vitamin D 25-Hydroxy 76.1 ng/mL [facility] Comment on above: Vitamin D 25(OH) Sta tus Range Deficiency <20 ng/mL (50nmol/L) Insufficiency 20 - 30 ng/mL (50 - 75 nmol/L) Sufficiency 30 - 100 ng/mL (75 - 250 nmol/L) Toxicity >100 ng/mL (>250 nmol/L) Serum or plasma calcium zarina urement (mass/volume)Ordered By: Miranda Hester on 10-16-2023 Calcium [Mass/Vol] 9.7 mg/dL 8.5-10.1 [facility] Serum or plasma creatinine m easurement (mass/volume)Ordered By: Miranda Hester on 10-16-2023 Creatinine [Mass/Vol] 1.02 mg/dL 0.55-1.02 [facility] Comment on above: The validity of the calculated GFR & GFRAA in patients over 70 years has not been determined. Clinical correlation is essential. Serum or plasma urea nitroge n measurement (mass/volume)Ordered By: Miranda Hester on 10-16-2023 Urea nitrogen [Mass/Vol] 22 mg/dL 7-18 [facility] Thin prep Papanicolaou smear with manual screeningOrdered By: Miranda Hester on 10-16-2023 Thin prep Papanicolaou smear with manual screening 8 5-15 [facility] Absolute lymphocyte countOrd ered By: Miranda Hester on 06-29-2023 Lymphocytes Auto (Unsp spec) [#/Vol] 2.70 10*3/uL 0.83-4.51 [facility] Basophil percentageOrdered B y: Miranda Hester on 06-29-2023 Basophils/100 WBC (Bld) 0.6 % 0-1 [facility] Bilirubin [Mass/Vol] 0.30 mg/dL 0.20-1.00 [facility] Comment on above: For patients on eltr ombopag therapy, use of Dimension [place] TBIL is not recommended. Chloride [Moles/Vol] 104 mmol/L 98-107 [facility] Eosinophils/100 WBC (Bld) 1.9 % 0-5 [facility] Glucose [Mass/Vol] 78 mg/dL 74-106 [facility] Neutrophils (Bld) [#/Vol] 4.9 10*3/uL 2.0-7.7 [facility] Neutrophils/100 WBC (Bld) 57.9 % 47-70 [facility] Potassium [Moles/Vol] 4.3 mmol/L 3.5-5.1 [facility] Protein [Mass/Vol] 8.4 g/dL 6.4-8.2 [facility] Sodium [Moles/Vol] 134 mmol/L 136-145 [facility] WBC (Bld) [#/Vol] 8.4 10*3/uL 4.4-11.0 [facility] Blood erythrocytes count (nu mber/volume)Ordered By: Miranda Hester on 06-29-2023 RBC (Bld) [#/Vol] 4.68 10*6/uL 4.2-5.4 [facility] Blood hemoglobin measurement (mass/volume)Ordered By: Miranda Hester on 06-29-2023 Hemoglobin (Bld) [Mass/Vol] 13.2 g/dL 12.0-15.0 [facility] Blood lymphocytes/100 leukoc ytesOrdered By: Miranda Hester on 06-29-2023 Lymphocytes/100 WBC (Bld) 32.1 % 19-41 [facility] Blood monocytes/100 leukocyt esOrdered By: Miranda Hester on 06-29-2023 Monocytes/100 WBC (Bld) 7.0 % 0-10 [facility] Blood platelet mean volumeOr dered By: Miranda Hester on 06-29-2023 Platelet mean volume (Bld) [Entitic vol] 9.6 fL 6.2-12.0 [facility] Determination of erythrocyte mean corpuscular volume (MCV)Ordered By: Miranda Hester on 06-29-2023 MCV (RBC) [Entitic vol] 89.7 fL 81-99 [facility] Hematocrit Auto (Bld) [Volum e fraction]Ordered By: Miranda Hester on 06-29-2023 Hematocrit (Bld) [Volume fraction] 42.0 % 37-47 [facility] Laboratory - Chemistry and C hemistry - challengeOrdered By: kathryn Hester on 06-29-2023 ALP [Catalytic activity/Vol] 78 U/L 45-117 [facility] ALT [Catalytic activity/Vol] 24 U/L 13-56 [facility] CO2 [Moles/Vol] 23.0 mmol/L 21.0-32.0 [facility] Globulin (S) [Mass/Vol] 4.4 g/dL 2.2-4.2 [facility] Urea nitrogen/Creatinine [Mass ratio] 22.7 mg/mg 10-20 [facility] Laboratory - Hematology and Cell countsOrdered By: Leonsyracusesunny Evansservando on 06-29-2023 Erythrocyte distribution width (RBC) [Entitic vol] 42.3 fL 35.1-43.9 [facility] Erythrocyte distribution width (RBC) [Ratio] 13.0 % 11.6-14.6 [facility] Immature granulocytes/100 WBC (Bld) 0.500 % 0.0-0.9 [facility] Comment on above: IG% - Immature Granu locytes (promyelocytes, myelocytes and metamyelocytes) > 1% indicates that a LEFT SHIFT is Present. MCH (RBC) [Entitic mass] 28.2 pg 27.0-32.0 [facility] Nucleated RBC/100 WBC (Bld) [Ratio] 0 % 0-5 [facility] MCHC Auto (RBC) [Mass/Vol]Or dered By: Miranda Hester on 06-29-2023 MCHC (RBC) [Mass/Vol] 31.4 g/dL 32-36 [facility] No Panel InformationOrdered By: Miranda Hester on 06-29-2023 Estimated GFR (MDRD) Amer 76 mL/min >60 [facility] Comment on above: GFR Calc Estimated GFR (MDRD) Non-Af Amer 63 mL/min >60 [facility] Comment on above: Non- GFR Calc Platelets bldOrdered By: Jeff Hester on 06-29-2023 Platelets (Bld) [#/Vol] 384 10*3/uL 150-450 [facility] Serum or plasma albumin zarina urement (mass/volume)Ordered By: Miranda Hester on 06-29-2023 Albumin [Mass/Vol] 4.0 g/dL 3.2-5.0 [facility] Serum or plasma albumin/glob ulin mass ratioOrdered By: Miranda Hester on 06-29-2023 Albumin/Globulin [Mass ratio] 0.9 {ratio} 0.9-2.4 [facility] Serum or plasma calcium zarina urement (mass/volume)Ordered By: Miranda Hester on 06-29-2023 Calcium [Mass/Vol] 9.5 mg/dL 8.5-10.1 [facility] Serum or plasma creatinine m easurement (mass/volume)Ordered By: Miranda Hester on 06-29-2023 Creatinine [Mass/Vol] 0.92 mg/dL 0.55-1.02 [facility] Comment on above: The validity of the calculated GFR & GFRAA in patients over 70 years has not been determined. Clinical correlation is essential. Serum or plasma urea nitroge n measurement (mass/volume)Ordered By: Miranda Hester on 06-29-2023 Urea nitrogen [Mass/Vol] 21 mg/dL 7-18 [facility] Thin prep Papanicolaou smear with manual screeningOrdered By: Miranda Hester on 06-29-2023 Thin prep Papanicolaou smear with manual screening 13 U/L 15-37 [facility] Thin prep Papanicolaou smear with manual screening 7 5-15 [facility] Whole blood hemoglobin A1c/t otal hemoglobin ratio (mass fraction)Ordered By: Miranda Hester on 06-29-2023 HbA1c (Bld) [Mass fraction] 6.1 % 3.8-5.6 [facility] Comment on above: Normal < 5.7 % Predi abetic 5.7 - 6.4 % Diabetic >or= 6.5 % Please note range changes. Absolute lymphocyte countOrd ered By: Miranda Hester on 03-27-2023 Lymphocytes Auto (Unsp spec) [#/Vol] 2.42 10*3/uL 0.83-4.51 [facility] Basophil percentageOrdered B y: Miranda Hester on 03-27-2023 Basophils/100 WBC (Bld) 0.3 % 0-1 [facility] Bilirubin [Mass/Vol] 0.30 mg/dL 0.20-1.00 [facility] Comment on above: For patients on eltr ombopag therapy, use of Dimension [place] TBIL is not recommended. Chloride [Moles/Vol] 107 mmol/L 98-107 [facility] Cholesterol [Mass/Vol] 217 mg/dL <200 [facility] Comment on above: <200 mg/dL Desirable 200-240 mg/dL Borderline >240 mg/dL High Risk Eosinophils/100 WBC (Bld) 3.0 % 0-5 [facility] Glucose [Mass/Vol] 69 mg/dL 74-106 [facility] Neutrophils (Bld) [#/Vol] 6.0 10*3/uL 2.0-7.7 [facility] Neutrophils/100 WBC (Bld) 64.1 % 47-70 [facility] Potassium [Moles/Vol] 3.7 mmol/L 3.5-5.1 [facility] Protein [Mass/Vol] 7.7 g/dL 6.4-8.2 [facility] Sodium [Moles/Vol] 139 mmol/L 136-145 [facility] Triglyceride [Mass/Vol] 194 mg/dL <199 [facility] Comment on above: The drugs N-Acetylcy steine and Metamizole may falsely depress this assay.Serum Triglycerides Reference Interval Normal <150 mg/dL Borderline high 150 - 199 mg/dL High 200 - 499 mg/dL Very High > or = 500 mg/dL WBC (Bld) [#/Vol] 9.4 10*3/uL 4.4-11.0 [facility] Blood erythrocytes count (nu mber/volume)Ordered By: Miranda Hester on 03-27-2023 RBC (Bld) [#/Vol] 4.36 10*6/uL 4.2-5.4 [facility] Blood hemoglobin measurement (mass/volume)Ordered By: Miranda Hester on 03-27-2023 Hemoglobin (Bld) [Mass/Vol] 12.5 g/dL 12.0-15.0 [facility] Blood lymphocytes/100 leukoc ytesOrdered By: kathryn Hester on 03-27-2023 Lymphocytes/100 WBC (Bld) 25.8 % 19-41 [facility] Blood monocytes/100 leukocyt esOrdered By: kathryn Hester on 03-27-2023 Monocytes/100 WBC (Bld) 6.4 % 0-10 [facility] Blood platelet mean volumeOr dered By: kathryn Hester on 03-27-2023 Platelet mean volume (Bld) [Entitic vol] 10.8 fL 6.2-12.0 [facility] Determination of erythrocyte mean corpuscular volume (MCV)Ordered By: Miranda Hester on 03-27-2023 MCV (RBC) [Entitic vol] 88.3 fL 81-99 [facility] Hematocrit Auto (Bld) [Volum e fraction]Ordered By: [facility] Brunswicksunny Hester on 03-27-2023 Hematocrit (Bld) [Volume fraction] 38.5 % 37-47 [facility] Laboratory - Chemistry and C hemistry - challengeOrdered By: [facility] Brunswicksunny Hester on 03-27-2023 ALP [Catalytic activity/Vol] 72 U/L 45-117 [facility] ALT [Catalytic activity/Vol] 24 U/L 13-56 [facility] CO2 [Moles/Vol] 21.0 mmol/L 21.0-32.0 [facility] Globulin (S) [Mass/Vol] 4.0 g/dL 2.2-4.2 [facility] Urea nitrogen/Creatinine [Mass ratio] 16.3 mg/mg 10-20 [facility] Laboratory - Hematology and Cell countsOrdered By: Leonsyracusesunny Hester on 03-27-2023 Erythrocyte distribution width (RBC) [Entitic vol] 45.1 fL 35.1-43.9 [facility] Erythrocyte distribution width (RBC) [Ratio] 14.1 % 11.6-14.6 [facility] Immature granulocytes/100 WBC (Bld) 0.400 % 0.0-0.9 [facility] Comment on above: IG% - Immature Granu locytes (promyelocytes, myelocytes and metamyelocytes) > 1% indicates that a LEFT SHIFT is Present. MCH (RBC) [Entitic mass] 28.7 pg 27.0-32.0 [facility] Nucleated RBC/100 WBC (Bld) [Ratio] 0 % 0-5 [facility] Laboratory - Hematology and Cell countson 03-27-2023 HbA1c (Bld) [Mass fraction] 6.3 % 4.2-6.3 [facility] MCHC Auto (RBC) [Mass/Vol]Or dered By: Miranda Hester on 03-27-2023 MCHC (RBC) [Mass/Vol] 32.5 g/dL 32-36 [facility] No Panel InformationOrdered By: Miranda Hester on 03-27-2023 Estimated GFR (MDRD) Amer 52 mL/min >60 [facility] Comment on above: GFR Calc Estimated GFR (MDRD) Non-Af Amer 43 mL/min >60 [facility] Comment on above: Non- GFR Calc Urine Microalbumin/Creatinine Ratio 61.1 mg/g CRE <30 [facility] Platelets bldOrdered By: Jeff Hester on 03-27-2023 Platelets (Bld) [#/Vol] 262 10*3/uL 150-450 [facility] Serum or plasma albumin zarina urement (mass/volume)Ordered By: Miranda Hester on 03-27-2023 Albumin [Mass/Vol] 3.7 g/dL 3.2-5.0 [facility] Serum or plasma albumin/glob ulin mass ratioOrdered By: Miranda Hester on 03-27-2023 Albumin/Globulin [Mass ratio] 0.9 {ratio} 0.9-2.4 [facility] Serum or plasma calcium zarina urement (mass/volume)Ordered By: Miranda Hester on 03-27-2023 Calcium [Mass/Vol] 9.3 mg/dL 8.5-10.1 [facility] Serum or plasma cholesterol in HDL measurement (mass/volume)Ordered By: Miranda Hester on 03-27-2023 Cholesterol in HDL [Mass/Vol] 45 mg/dL >40 [facility] Comment on above: The drugs N-Acetylcy steine and Metamizole may falsely depress this assay. Reference Range HDL <40 mg/dL Low HDL Cholesterol HDL >or= 60 mg/dL High HDL Cholesterol Serum or plasma cholesterol in VLDL measurement (mass/volume)Ordered By: Miranda Hester on 03-27-2023 Cholesterol in VLDL [Mass/Vol] 39 mg/dL 5-40 [facility] Serum or plasma creatinine m easurement (mass/volume)Ordered By: Miranda Hester on 03-27-2023 Creatinine [Mass/Vol] 1.29 mg/dL 0.55-1.02 [facility] Comment on above: The validity of the calculated GFR & GFRAA in patients over 70 years has not been determined. Clinical correlation is essential. Serum or plasma low density lipoprotein (LDL) cholesterol measurement (mass/volume)Ordered By: Miranda Hester on 03-27-2023 Cholesterol in LDL [Mass/Vol] 133 mg/dL 0-130 [facility] Serum or plasma urea nitroge n measurement (mass/volume)Ordered By: Miranda Hester on 03-27-2023 Urea nitrogen [Mass/Vol] 21 mg/dL 7-18 [facility] Thin prep Papanicolaou smear with manual screeningOrdered By: Miranda Hester on 03-27-2023 Thin prep Papanicolaou smear with manual screening 17 U/L 15-37 [facility] Thin prep Papanicolaou smear with manual screening 11 5-15 [facility] Thin prep Papanicolaou smear with manual screening 91.6 mg/L NO RANGE EST. [facility] Urine creatinine measurement (mass/volume)Ordered By: Miranda Hester on 03-27-2023 Creatinine (U) [Mass/Vol] 150.00 mg/dL NO RANGE EST. [facility] SPENCER SCREENING W TOMOon 03-25 [facility] Iron measurement (mass/mass) Ordered By: Dr. Hester on 10-24-2022 Iron (Unsp spec) [Mass/Mass] 42 ug/dL 50-170 [facility] Laboratory - Chemistry and C hemistry - challengeOrdered By: Dr. Hester on 10-24-2022 Cobalamin (Vitamin B12) [Mass/Vol] 992 pg/mL 211-911 [facility] No Panel InformationOrdered By: Dr. Hester on 10-24-2022 Total Iron Binding Capacity 519 ug/dL 250-450 [facility] Serum or plasma ferritin luly surement (mass/volume)Ordered By: Dr. Hester on 10-24-2022 Ferritin [Mass/Vol] 6 ng/mL 8-252 [facility] Serum or plasma folate measu rement (mass/volume)Ordered By: Dr. Hester on 10-24-2022 Folate [Mass/Vol] 9.50 ng/mL 3.1-55.4 [facility] Laboratory - Hematology and Cell countson 10-22-2022 HbA1c (Bld) [Mass fraction] 6.3 % 4.2-6.3 [facility] Absolute lymphocyte countOrd ered By: Dr. Lockett on 10-16-2022 Lymphocytes Auto (Unsp spec) [#/Vol] 2.38 10*3/uL 0.83-4.51 [facility] Basophil percentageOrdered B y: Dr. Lockett on 10-16-2022 Basophils/100 WBC (Bld) 0.5 % 0-1 [facility] Eosinophils/100 WBC (Bld) 2.1 % 0-5 [facility] Neutrophils (Bld) [#/Vol] 5.1 10*3/uL 2.0-7.7 [facility] Neutrophils/100 WBC (Bld) 62.6 % 47-70 [facility] WBC (Bld) [#/Vol] 8.2 10*3/uL 4.4-11.0 [facility] Blood erythrocytes count (nu mber/volume)Ordered By: Dr. Lockett on 10-16-2022 RBC (Bld) [#/Vol] 4.32 10*6/uL 4.2-5.4 [facility] Blood hemoglobin measurement (mass/volume)Ordered By: Dr. Lockett on 10-16-2022 Hemoglobin (Bld) [Mass/Vol] 10.6 g/dL 12.0-15.0 [facility] Blood lymphocytes/100 leukoc ytesOrdered By: Dr. Lockett on 10-16-2022 Lymphocytes/100 WBC (Bld) 29.2 % 19-41 [facility] Blood monocytes/100 leukocyt esOrdered By: Dr. Lockett on 10-16-2022 Monocytes/100 WBC (Bld) 5.2 % 0-10 [facility] Blood platelet mean volumeOr dered By: Dr. Lockett on 10-16-2022 Platelet mean volume (Bld) [Entitic vol] 9.8 fL 6.2-12.0 [facility] Determination of erythrocyte mean corpuscular volume (MCV)Ordered By: Dr. Lockett on 10-16-2022 MCV (RBC) [Entitic vol] 82.6 fL 81-99 [facility] Erythrocyte sedimentation ra teOrdered By: Dr. Lockett on 10-16-2022 ESR (Bld) [Velocity] 27 mm/h 0-30 [facility] Hematocrit Auto (Bld) [Volum e fraction]Ordered By: Dr. Lockett on 10-16-2022 Hematocrit (Bld) [Volume fraction] 35.7 % 37-47 [facility] Laboratory - Hematology and Cell countsOrdered By: Dr. Lockett on 10-16-2022 Erythrocyte distribution width (RBC) [Entitic vol] 43.3 fL 35.1-43.9 [facility] Erythrocyte distribution width (RBC) [Ratio] 14.4 % 11.6-14.6 [facility] Immature granulocytes/100 WBC (Bld) 0.400 % 0.0-0.9 [facility] Comment on above: IG% - Immature Granu locytes (promyelocytes, myelocytes and metamyelocytes) > 1% indicates that a LEFT SHIFT is Present. MCH (RBC) [Entitic mass] 24.5 pg 27.0-32.0 [facility] Nucleated RBC/100 WBC (Bld) [Ratio] 0 % 0-5 [facility] MCHC Auto (RBC) [Mass/Vol]Or dered By: Dr. Lockett on 10-16-2022 MCHC (RBC) [Mass/Vol] 29.7 g/dL 32-36 [facility] Platelets bldOrdered By: Dr. Lockett on 10-16-2022 Platelets (Bld) [#/Vol] 343 10*3/uL 150-450 [facility] Serum or plasma C reactive p rotein measurement (mass/volume)Ordered By: Dr. Lockett on 10-16-2022 CRP [Mass/Vol] mg/L 0.0-3.0 [facility] Comment on above: C-Reactive Protein ( CRP) provides useful information for thediagnosis, therapy and monitoring of inflammatory processesand associated diseases. For the evaluation of Relative Riskfor Cardiovascular Disease, a High Sensitivity CRP (HSCRP)should be ordered. Absolute lymphocyte counton 01-20-2022 Lymphocytes Auto (Unsp spec) [#/Vol] 2.64 10*3/uL 0.83-4.51 [facility] Work Phone: Basophil percentageon 2021 Basophils/100 WBC (Bld) 0.5 % 0-1 [facility] Work Phone: Bilirubin [Mass/Vol] 0.40 mg/dL 0.20-1.00 [facility] Work Phone: Comment on above: For patients on eltr ombopag therapy, use of Dimension [place] TBIL is not recommended. Chloride [Moles/Vol] 104 mmol/L 98-107 [facility] Work Phone: Cholesterol [Mass/Vol] 120 mg/dL <200 [facility] Work Phone: Comment on above: <200 mg/dL Desirable 200-240 mg/dL Borderline >240 mg/dL High Risk Eosinophils/100 WBC (Bld) 2.2 % 0-5 [facility] Work Phone: Glucose [Mass/Vol] 91 mg/dL 74-106 [facility] Work Phone: Neutrophils (Bld) [#/Vol] 5.3 10*3/uL 2.0-7.7 [facility] Work Phone: Neutrophils/100 WBC (Bld) 60.3 % 47-70 [facility] Work Phone: [phone] Potassium [Moles/Vol] 4.0 mmol/L 3.5-5.1 [facility] Work Phone: Protein [Mass/Vol] 7.7 g/dL 6.4-8.2 [facility] Work Phone: Sodium [Moles/Vol] 136 mmol/L 136-145 [facility] Work Phone: Triglyceride [Mass/Vol] 145 mg/dL [facility] Work Phone: Comment on above: The drugs N-Acetylcy steine and Metamizole may falsely depress this assay.Serum Triglycerides Reference Interval Normal <150 mg/dL Borderline high 150 - 199 mg/dL High 200 - 499 mg/dL Very High > or = 500 mg/dL WBC (Bld) [#/Vol] 8.8 10*3/uL 4.4-11.0 [facility] Work Phone: Blood erythrocytes count (nu mber/volume)on 01-20-2022 RBC (Bld) [#/Vol] 4.34 10*6/uL 4.2-5.4 [facility] Work Phone: Blood hemoglobin measurement (mass/volume)on 01-20-2022 Hemoglobin (Bld) [Mass/Vol] 11.6 g/dL 12.0-15.0 [facility] Work Phone: Blood lymphocytes/100 leukoc yteson 01-20-2022 Lymphocytes/100 WBC (Bld) 30.0 % 19-41 [facility] Work Phone: Blood monocytes/100 leukocyt eson 01-20-2022 Monocytes/100 WBC (Bld) 6.8 % 0-10 [facility] Work Phone: Blood platelet mean volumeon 01-20-2022 Platelet mean volume (Bld) [Entitic vol] 9.8 fL 6.2-12.0 [facility] Work Phone: Determination of erythrocyte mean corpuscular volume (MCV)on 01-20-2022 MCV (RBC) [Entitic vol] 85.5 fL 81-99 [facility] Work Phone: Hematocrit Auto (Bld) [Volum e fraction]on 01-20-2022 Hematocrit (Bld) [Volume fraction] 37.1 % 37-47 [facility] Work Phone: Laboratory - Chemistry and C hemistry - challengeon 01-20-2022 ALP [Catalytic activity/Vol] 58 U/L 45-117 [facility] Work Phone: ALT [Catalytic activity/Vol] 25 U/L 13-56 [facility] Work Phone: CO2 [Moles/Vol] 24.0 mmol/L 21.0-32.0 [facility] Work Phone: Cobalamin (Vitamin B12) [Mass/Vol] 987 pg/mL 211-911 [facility] Work Phone: Globulin (S) [Mass/Vol] 3.9 g/dL 2.2-4.2 [facility] Work Phone: Urea nitrogen/Creatinine [Mass ratio] 17.6 mg/mg 10-20 [facility] Work Phone: Laboratory - Hematology and Cell countson 01-20-2022 HbA1c (Bld) [Mass fraction] 6.3 % [facility] Work Phone: Erythrocyte distribution width (RBC) [Entitic vol] 47.7 fL 35.1-43.9 [facility] Work Phone: Erythrocyte distribution width (RBC) [Ratio] 15.1 % 11.6-14.6 [facility] Work Phone: Immature granulocytes/100 WBC (Bld) 0.200 % 0.0-0.9 [facility] Work Phone: Comment on above: IG% - Immature Granu locytes (promyelocytes, myelocytes and metamyelocytes) > 1% indicates that a LEFT SHIFT is Present. MCH (RBC) [Entitic mass] 26.7 pg 27.0-32.0 [facility] Work Phone: Nucleated RBC/100 WBC (Bld) [Ratio] 0 % 0-5 [facility] Work Phone: MCHC Auto (RBC) [Mass/Vol]on 01-20-2022 MCHC (RBC) [Mass/Vol] 31.3 g/dL 32-36 [facility] Work Phone: No Panel Informationon 01-20 Estimated GFR (MDRD) Amer 73 mL/min >60 [facility] Work Phone: Comment on above: GFR Calc Estimated GFR (MDRD) Non-Af Amer 60 mL/min >60 [facility] Work Phone: Comment on above: Non- GFR Calc Vitamin D 25-Hydroxy 63.8 ng/mL [facility] Work Phone: Comment on above: Vitamin D 25(OH) Sta tus Range Deficiency <20 ng/mL (50nmol/L) Insufficiency 20 - 30 ng/mL (50 - 75 nmol/L) Sufficiency 30 - 100 ng/mL (75 - 250 nmol/L) Toxicity >100 ng/mL (>250 nmol/L) Platelets bldon 01-20-2022 Platelets (Bld) [#/Vol] 325 10*3/uL 150-450 [facility] Work Phone: Serum or plasma albumin zarina urement (mass/volume)on 01-20-2022 Albumin [Mass/Vol] 3.8 g/dL 3.2-5.0 [facility] Work Phone: Serum or plasma albumin/glob ulin mass ratioon 01-20-2022 Albumin/Globulin [Mass ratio] 1.0 {ratio} 0.9-2.4 [facility] Work Phone: Serum or plasma calcium zarina urement (mass/volume)on 01-20-2022 Calcium [Mass/Vol] 9.3 mg/dL 8.5-10.1 [facility] Work Phone: Serum or plasma cholesterol in HDL measurement (mass/volume)on 01-20-2022 Cholesterol in HDL [Mass/Vol] 43 mg/dL [facility] Work Phone: Comment on above: The drugs N-Acetylcy steine and Metamizole may falsely depress this assay. Reference Range HDL <40 mg/dL Low HDL Cholesterol HDL >or= 60 mg/dL High HDL Cholesterol Serum or plasma cholesterol in VLDL measurement (mass/volume)on 01-20-2022 Cholesterol in VLDL [Mass/Vol] 29 mg/dL 5-40 [facility] Work Phone: Serum or plasma creatinine m easurement (mass/volume)on 01-20-2022 Creatinine [Mass/Vol] 0.96 mg/dL 0.55-1.02 [facility] Work Phone: Comment on above: The validity of the calculated GFR & GFRAA in patients over 70 years has not been determined. Clinical correlation is essential. Serum or plasma low density lipoprotein (LDL) cholesterol measurement (mass/volume)on 01-20-2022 Cholesterol in LDL [Mass/Vol] 48 mg/dL 0-130 [facility] Work Phone: Serum or plasma urea nitroge n measurement (mass/volume)on 01-20-2022 Urea nitrogen [Mass/Vol] 17 mg/dL 7-18 [facility] Work Phone: Thin prep Papanicolaou smear with manual screeningon 01-20-2022 Thin prep Papanicolaou smear with manual screening 19 U/L 15-37 [facility] Work Phone: Thin prep Papanicolaou smear with manual screening 8 5-15 [facility] Work Phone: US BREAST LTD LTon 2 [facility] Basic metabolic 2000 panelon 12-30-2021 Anion gap [Moles/Vol] 10 mmol/L 9 - 18 mmol/L [facility] Calcium [Mass/Vol] 9.1 mg/dL 8.5 - 10. 2 mg/dL [facility] Chloride [Moles/Vol] 100 mmol/L 97 - 10 5 mmol/L [facility] CO2 [Moles/Vol] 25 mmol/L 22 - 30 mmol/L [facility] Creatinine [Mass/Vol] 0.78 mg/dL 0.58 - 0.96 mg/dL [facility] Estimated Glomerular Filtration Rate 81 mL/min/1.73m >=60 mL/min/1.73 m [facility] Glucose [Mass/Vol] 105 mg/dL High 74 - 99 mg/dL [facility] Potassium [Moles/Vol] 4.3 mmol/L 3.7 - 5.1 mmol/L [facility] Sodium [Moles/Vol] 135 mmol/L Low 136 - 144 mmol/L [facility] Urea nitrogen [Mass/Vol] 17 mg/dL 7 - 21 mg/dL [facility] Laboratory - Hematology and Cell countson 10-28-2021 HbA1c (Bld) [Mass fraction] 8.1 % [facility] Work Phone: Vital Signs Date Time Vital Sign Value Performing Clinician Facility 05-09-2025 13:57-0400 Body height 157.5 cm Yajaira Joseph MD Work Phone: [facility] 05-09-2025 13:57-0400 Body mass index (BMI) [Ratio] 28.48 kg/m2 Yajaira Joseph MD Work Phone: [facility] 05-09-2025 13:57-0400 Body temperature 97.81 [degF] Yajaira Joseph MD Work Phone: [facility] 05-09-2025 13:57-0400 Body weight 70.63 kg Yajaira Joseph MD Work Phone: [facility] 03-24-2025 08:52-0400 Body height 157 cm Darin Covington MD Work Phone: [facility] 03-24-2025 08:52-0400 Body height 157.48 cm Darin Covington MD Work Phone: [facility] 03-24-2025 08:52-0400 Body mass index (BMI) [Ratio] 27.17 kg/m2 Darin Covington MD Work Phone: [facility] 03-24-2025 08:52-0400 Body weight 67 kg Darin Covington MD Work Phone: [facility] 03-24-2025 08:52-0400 Body weight 67.13 kg Darin Covington MD Work Phone: [facility] 03-24-2025 08:52-0400 BP SITE #1 Darin Covington MD Work Phone: [facility] 03-24-2025 08:52-0400 Diastolic blood pressure 65 mm[Hg] Darin Covington MD Work Phone: [facility] 03-24-2025 08:52-0400 Heart rate 91 /min Darin Covington MD Work Phone: [facility] 03-24-2025 08:52-0400 HGHTCHNVIS Darin Covington MD Work Phone: [facility] 03-24-2025 08:52-0400 Systolic blood pressure 114 mm[Hg] Darin Covington MD Work Phone: [facility] 03-24-2025 08:52-0400 VITALSDONE Darin Covington MD Work Phone: [facility] 03-13-2025 08:23-0400 Body height 157.[address] Harriett Draper MD Work Phone: [facility] 03-13-2025 08:23-0400 Body mass index (BMI) [Ratio] 26.9 kg/m2 Dr. Harriett Draper MD Work Phone: [facility] 03-13-2025 08:23-0400 Body temperature 97.6 [degF] Dr. Harriett Draper MD Work Phone: [facility] 03-13-2025 08:23-0400 Body weight 66.[address] Harriett Draper MD Work Phone: [facility] 03-13-2025 08:23-0400 Diastolic blood pressure 70 mm[Hg] Dr. Harriett Draper MD Work Phone: [facility] 03-13-2025 08:23-0400 Heart rate 80 /min Dr. Harriett Draper MD Work Phone: [facility] 03-13-2025 08:23-0400 Respiratory rate 16 /min Dr. Harriett Draper MD Work Phone: [facility] 03-13-2025 08:23-0400 SaO2% (BldA) [Mass fraction] 98 % Dr. Harriett Draper MD Work Phone: [facility] 03-13-2025 08:23-0400 Systolic blood pressure 120 mm[Hg] Dr. Harriett Draper MD Work Phone: [facility] 12-05-2024 08:52-0400 Body height 154.[address] Harriett Draper MD Work Phone: [facility] 12-05-2024 08:52-0400 Body mass index (BMI) [Ratio] 26.8 kg/m2 Dr. Harritet Draper MD Work Phone: [facility] 12-05-2024 08:52-0400 Body temperature 97.1 [degF] Dr. Harriett Draper MD Work Phone: [facility] 12-05-2024 08:52-0400 Body weight 64.[address] Harriett Draper MD Work Phone: [facility] 12-05-2024 08:52-0400 Diastolic blood pressure 60 mm[Hg] Dr. Harriett Draper MD Work Phone: [facility] 12-05-2024 08:52-0400 Heart rate 56 /min Dr. Harriett Draper MD Work Phone: [facility] 12-05-2024 08:52-0400 Respiratory rate 14 /min Dr. Harriett Draper MD Work Phone: [facility] 12-05-2024 08:52-0400 Systolic blood pressure 110 mm[Hg] Dr. Harriett Draper MD Work Phone: [facility] 09-13-2024 08:58-0500 Body mass index (BMI) [Ratio] 26 kg/m2 Chanda Ocasio [employer] Work Phone: [facility] 09-13-2024 08:58-0500 Body temperature 97.39 [degF] Chanda Ocasio [employer] Work Phone: [facility] 09-13-2024 08:58-0500 Body weight 64.9 kg Chanda Ocasio [employer] Work Phone: [facility] 09-13-2024 08:58-0500 Diastolic blood pressure 79 mm[Hg] Chanda Ocasio [employer] Work Phone: [facility] 09-13-2024 08:58-0500 Heart rate 92 /min Chanda Ocasio [employer] Work Phone: [facility] 09-13-2024 08:58-0500 SaO2% (BldA) [Mass fraction] 98 % Chanda Ocasio [employer] Work Phone: [facility] 09-13-2024 08:58-0500 Systolic blood pressure 124 mm[Hg] Chanda Ocasio [employer] Work Phone: [facility] 08-29-2024 09:05-0500 Body mass index (BMI) [Ratio] 26.8 kg/m2 Dr. Harriett Draper MD Work Phone: [facility] 08-29-2024 09:05-0500 Body temperature 97.6 [degF] Dr. Harriett Draper MD Work Phone: [facility] 08-29-2024 09:05-0500 Body weight 64.[address] Harriett Draper MD Work Phone: [facility] 08-29-2024 09:05-0500 Diastolic blood pressure 86 mm[Hg] Dr. Harriett Draper MD Work Phone: [facility] 08-29-2024 09:05-0500 Heart rate 100 /min Dr. Harriett Draper MD Work Phone: [facility] 08-29-2024 09:05-0500 Respiratory rate 16 /min Dr. Harriett Draper MD Work Phone: [facility] 08-29-2024 09:05-0500 SaO2% (BldA) [Mass fraction] 98 % Dr. Harriett Draper MD Work Phone: [facility] 08-29-2024 09:05-0500 Systolic blood pressure 128 mm[Hg] Dr. Harriett Draper MD Work Phone: [facility] 12-13-2023 08:24-0400 Body temperature 96.91 [degF] Cherrie Gagandeep [employer] Work Phone: [facility] 12-13-2023 08:24-0400 Body weight 69 kg Cherrie Gagandeep [employer] Work Phone: [facility] 12-13-2023 08:24-0400 Diastolic blood pressure 76 mm[Hg] Cherrie Gagandeep [employer] Work Phone: [facility] 12-13-2023 08:24-0400 Heart rate 90 /min Cherrie Gagandeep [employer] Work Phone: [facility] 12-13-2023 08:24-0400 Respiratory rate 21 /min Cherrie Gagandeep [employer] Work Phone: [facility] 12-13-2023 08:24-0400 SaO2% (BldA) [Mass fraction] 97 % Cherrie Gagandeep [employer] Work Phone: [facility] 12-13-2023 08:24-0400 Systolic blood pressure 128 mm[Hg] Cherrie Donis APRN.[employer] Work Phone: [facility] 12-02-2023 09:15-0400 Body height 154.[address] Miranda Hester Work Phone: [facility] 10-16-2023 08:22-0500 Body height 154.[address] Miranda Hester Work Phone: [facility] 10-16-2023 08:22-0500 Body mass index (BMI) [Ratio] 27.6 kg/m2 Dr. Miranda Hester Work Phone: [facility] 10-16-2023 08:22-0500 Body temperature 96.7 [degF] Dr. Miranda Hester Work Phone: [facility] 10-16-2023 08:22-0500 Body weight 66.[address] Miranda Hester Work Phone: [facility] 10-16-2023 08:22-0500 Diastolic blood pressure 76 mm[Hg] Dr. Miranda Hester Work Phone: [facility] 10-16-2023 08:22-0500 Heart rate 88 /min Dr. Miranda Hester Work Phone: [facility] 10-16-2023 08:22-0500 Respiratory rate 16 /min Dr. Miranda Hester Work Phone: [facility] 10-16-2023 08:22-0500 SaO2% (BldA) [Mass fraction] 99 % Dr. Miranda Hester Work Phone: [facility] 10-16-2023 08:22-0500 Systolic blood pressure 110 mm[Hg] Dr. Miranda Hester Work Phone: [facility] 07-27-2023 03:40-0500 Body height 154.[address] Miranda Hseter Work Phone: [facility] 07-27-2023 03:40-0500 Body mass index (BMI) [Ratio] 28.2 kg/m2 Dr. Miranda Hester Work Phone: [facility] 07-27-2023 03:40-0500 Body temperature 95.9 [degF] Dr. Miranda Hester Work Phone: [facility] 07-27-2023 03:40-0500 Body weight 67.[address] Miranda Hester Work Phone: [facility] 07-27-2023 03:40-0500 Diastolic blood pressure 89 mm[Hg] Dr. Miranda Hester Work Phone: [facility] 07-27-2023 03:40-0500 Heart rate 120 /min Dr. Miranda Hester Work Phone: [facility] 07-27-2023 03:40-0500 Respiratory rate 15 /min Dr. Miranda Hester Work Phone: [facility] 07-27-2023 03:40-0500 SaO2% (BldA) [Mass fraction] 100 % Dr. Miranda Hester Work Phone: [facility] 07-27-2023 03:40-0500 Systolic blood pressure 174 mm[Hg] Dr. Miranda Hester Work Phone: [facility] 06-29-2023 08:07-0400 Body height 154.[address] Miranda Hester Work Phone: [facility] 06-29-2023 08:07-0400 Body mass index (BMI) [Ratio] 27.9 kg/m2 Dr. Miranda Hester Work Phone: [facility] 06-29-2023 08:07-0400 Body temperature 95.4 [degF] Dr. Miranda Hester Work Phone: [facility] 06-29-2023 08:07-0400 Body weight 67.[address] Miranda Hester Work Phone: [facility] 06-29-2023 08:07-0400 Diastolic blood pressure 70 mm[Hg] Dr. Miranda Hester Work Phone: [facility] 06-29-2023 08:07-0400 Heart rate 98 /min Dr. Miranda Hester Work Phone: [facility] 06-29-2023 08:07-0400 SaO2% (BldA) [Mass fraction] 97 % Dr. Miranda Hester Work Phone: [facility] 06-29-2023 08:07-0400 Systolic blood pressure 112 mm[Hg] Dr. Miranda Hester Work Phone: [facility] 03-27-2023 14:04-0400 Body height 154.[address] Miranda Hester Work Phone: [facility] 03-27-2023 14:04-0400 Body mass index (BMI) [Ratio] 29.2 kg/m2 Dr. Miranda Hester Work Phone: [facility] 03-27-2023 14:04-0400 Body temperature 96.9 [degF] Dr. Miranda Hester Work Phone: [facility] 03-27-2023 14:04-0400 Body weight 70.[address] Miranda Hester Work Phone: [facility] 03-27-2023 14:04-0400 Diastolic blood pressure 68 mm[Hg] Dr. Miranda Hester Work Phone: [facility] 03-27-2023 14:04-0400 Heart rate 84 /min Dr. Miranda Hester Work Phone: [facility] 03-27-2023 14:04-0400 Respiratory rate 16 /min Dr. Miranda Hester Work Phone: [facility] 03-27-2023 14:04-0400 SaO2% (BldA) [Mass fraction] 98 % Dr. Miranda Hester Work Phone: [facility] 03-27-2023 14:04-0400 Systolic blood pressure 108 mm[Hg] Dr. Miranda Hester Work Phone: [facility] 03-11-2023 09:08-0400 Body mass index (BMI) [Ratio] 29.1 kg/m2 Dr. Miranda Hester Work Phone: [facility] 03-11-2023 09:08-0400 Body temperature 97.4 [degF] Dr. Miranda Hester Work Phone: [facility] 03-11-2023 09:08-0400 Body weight 69.[address] Miranda Hester Work Phone: [facility] 03-11-2023 09:08-0400 Diastolic blood pressure 78 mm[Hg] Dr. Miranda Hester Work Phone: [facility] 03-11-2023 09:08-0400 Heart rate 104 /min Dr. Miranda Hester Work Phone: [facility] 03-11-2023 09:08-0400 Respiratory rate 18 /min Dr. Miranda Hester Work Phone: [facility] 03-11-2023 09:08-0400 SaO2% (BldA) [Mass fraction] 98 % Dr. Miranda Hester Work Phone: [facility] 03-11-2023 09:08-0400 Systolic blood pressure 122 mm[Hg] Dr. Miranda Hester Work Phone: [facility] 03-05-2023 19:15-0400 Body temperature 97.7 [degF] Amy Keita [employer] Work Phone: [facility] 03-05-2023 19:15-0400 Body weight 68.95 kg Amy Keita [employer] Work Phone: [facility] 03-05-2023 19:15-0400 Diastolic blood pressure 84 mm[Hg] Amy Keita [employer] Work Phone: [facility] 03-05-2023 19:15-0400 Heart rate 70 /min Amy Keita [employer] Work Phone: [facility] 03-05-2023 19:15-0400 Respiratory rate 16 /min Amy Keita [employer] Work Phone: [facility] 03-05-2023 19:15-0400 SaO2% (BldA) [Mass fraction] 98 % Amy Keita [employer] Work Phone: [facility] 03-05-2023 19:15-0400 Systolic blood pressure 136 mm[Hg] Amy Keita [employer] Work Phone: [facility] 03-02-2023 07:16-0400 Body temperature 97.39 [degF] Cherrie Gagandeep [employer] Work Phone: [facility] 03-02-2023 07:16-0400 Body weight 69.31 kg Cherrie Gagandeep [employer] Work Phone: [facility] 03-02-2023 07:16-0400 Diastolic blood pressure 84 mm[Hg] Cherrie Gagandeep [employer] Work Phone: [facility] 03-02-2023 07:16-0400 Heart rate 97 /min Cherrie Gagandeep [employer] Work Phone: [facility] 03-02-2023 07:16-0400 Respiratory rate 18 /min Cherrie Gagandeep [employer] Work Phone: [facility] 03-02-2023 07:16-0400 SaO2% (BldA) [Mass fraction] 99 % Cherrei Donis JOHN.[employer] Work Phone: [facility] 03-02-2023 07:16-0400 Systolic blood pressure 120 mm[Hg] Cherrie King JOHN.[employer] Work Phone: [facility] 10-22-2022 10:22-0500 Body height 156.[address] Miranda Hester Work Phone: [facility] 10-22-2022 10:22-0500 Body mass index (BMI) [Ratio] 28.4 kg/m2 Dr. Miranda Hester Work Phone: [facility] 10-22-2022 10:22-0500 Body temperature 95 [degF] Dr. Miranda Hester Work Phone: [facility] 10-22-2022 10:22-0500 Body weight 69.[address] Miranda Hester Work Phone: [facility] 10-22-2022 10:22-0500 Diastolic blood pressure 76 mm[Hg] Dr. Miranda Hester Work Phone: [facility] 10-22-2022 10:22-0500 Heart rate 85 /min Dr. Miranda Hester Work Phone: [facility] 10-22-2022 10:22-0500 Respiratory rate 18 /min Dr. Miranda Hester Work Phone: [facility] 10-22-2022 10:22-0500 SaO2% (BldA) [Mass fraction] 96 % Dr. Miranda Hester Work Phone: [facility] 10-22-2022 10:22-0500 Systolic blood pressure 118 mm[Hg] Dr. Miranda Hester Work Phone: [facility] 02-25-2022 07:10-0400 Body temperature 97.59 [degF] Cherrie Donis [employer] Work Phone: [facility] 02-25-2022 07:10-0400 Body weight 69.31 kg Cherrie Donis [employer] Work Phone: [facility] 02-25-2022 07:10-0400 Diastolic blood pressure 66 mm[Hg] Cherrie Donis [employer] Work Phone: [facility] 02-25-2022 07:10-0400 Heart rate 90 /min Cherrie Donis [employer] Work Phone: [facility] 02-25-2022 07:10-0400 Respiratory rate 18 /min Cherrie Donis [employer] Work Phone: [facility] 02-25-2022 07:10-0400 SaO2% (BldA) [Mass fraction] 97 % Cherrie Donis [employer] Work Phone: [facility] 02-25-2022 07:10-0400 Systolic blood pressure 118 mm[Hg] Cherrie Donis [employer] Work Phone: [facility] 01-20-2022 08:36-0400 Body height 156.[address] Miranda Hester Work Phone: [facility] Work Phone: 01-20-2022 08:36-0400 Body mass index (BMI) [Ratio] 27.8 kg/m2 Dr. Miranda Hester Work Phone: [facility] Work Phone: 01-20-2022 08:36-0400 Body temperature 97 [degF] Dr. Miranda Hester Work Phone: [facility] Work Phone: 01-20-2022 08:36-0400 Body weight 68.[address] Miranda Hester Work Phone: [facility] Work Phone: 01-20-2022 08:36-0400 Diastolic blood pressure 76 mm[Hg] Dr. Miranda Hester Work Phone: [facility] Work Phone: 01-20-2022 08:36-0400 Heart rate 86 /min Dr. Miranda Hester Work Phone: [facility] Work Phone: 01-20-2022 08:36-0400 Respiratory rate 14 /min Dr. Miranda Hester Work Phone: [facility] Work Phone: 01-20-2022 08:36-0400 SaO2% (BldA) [Mass fraction] 97 % Dr. Miranda Hester Work Phone: [facility] Work Phone: 01-20-2022 08:36-0400 Systolic blood pressure 142 mm[Hg] Dr. Miranda Hester Work Phone: [facility] Work Phone: 12-30-2021 09:49-0400 Body temperature 97.11 [degF] Josselin Bogner PA-C Work Phone: [facility] 12-30-2021 09:49-0400 Body weight 68.86 kg Josselin Bogner PA-C Work Phone: [facility] 12-30-2021 09:49-0400 Diastolic blood pressure 72 mm[Hg] Josselin Bogner PA-C Work Phone: [facility] 12-30-2021 09:49-0400 Heart rate 90 /min Josselin Bogner PA-C Work Phone: [facility] 12-30-2021 09:49-0400 Respiratory rate 18 /min Josselin Bogner PA-C Work Phone: [facility] 12-30-2021 09:49-0400 SaO2% (BldA) [Mass fraction] 99 % Josselin MONSON-C Work Phone: [facility] 12-30-2021 09:49-0400 Systolic blood pressure 108 mm[Hg] Josselin MONSON-C Work Phone: [facility] 12-10-2021 08:27-0400 Body height 158 cm Chanda Ocasio [employer] Work Phone: [facility] 12-10-2021 08:27-0400 Body temperature 96.3 [degF] Chanda Ocasio [employer] Work Phone: [facility] 12-10-2021 08:27-0400 Body weight 69.85 kg Chanda Ocasio [employer] Work Phone: [facility] 12-10-2021 08:27-0400 Diastolic blood pressure 75 mm[Hg] Chanda Ocasio [employer] Work Phone: [facility] 12-10-2021 08:27-0400 Heart rate 98 /min Lizton Ocasoi [employer] Work Phone: [facility] 12-10-2021 08:27-0400 SaO2% (BldA) [Mass fraction] 100 % Lizton Ocasio [employer] Work Phone: [facility] 12-10-2021 08:27-0400 Systolic blood pressure 118 mm[Hg] Lizton Ocasio [employer] Work Phone: [facility] 10-28-2021 07:10-0500 Body mass index (BMI) [Ratio] 29.9 kg/m2 Dr. Miranda Hester Work Phone: [facility] Work Phone: 10-28-2021 07:10-0500 Body temperature 94.5 [degF] Dr. Miranda Hester Work Phone: [facility] Work Phone: 10-28-2021 07:10-0500 Body weight 73.[address] Miranda Hester Work Phone: [facility] Work Phone: 10-28-2021 07:10-0500 Diastolic blood pressure 74 mm[Hg] Dr. Miranda Hester Work Phone: [facility] Work Phone: 10-28-2021 07:10-0500 Heart rate 89 /min Dr. Miranda Hester Work Phone: [facility] Work Phone: 10-28-2021 07:10-0500 Respiratory rate 16 /min Dr. Miranda Hester Work Phone: [facility] Work Phone: 10-28-2021 07:10-0500 SaO2% (BldA) [Mass fraction] 98 % Dr. Miranda Hester Work Phone: [facility] Work Phone: 10-28-2021 07:10-0500 Systolic blood pressure 150 mm[Hg] Dr. Miranda Hester Work Phone: [facility] Work Phone: Encounters Encounter Date Encounter Type Care Provider Facility Start: 05-09-2025 End: 05-09-2025 Office outpatient new 30 minutes Yajaira Joseph MD Work Phone: [facility] [place] Comment on above: Sensorineural hearin g loss, bilateral (Primary Dx); Otalgia, right Start: 05-09-2025 End: 05-09-2025 Clinical Support Harsha Narvaez Work Phone: [facility] Comment on above: Sensorineural hearin g loss, bilateral (Primary Dx) Start: 03-24-2025 In-person encounter Darin lorenz MD Work Phone: [facility] Work Phone: Start: 03-24-2025 Visit out of hours Darin pike MD Work Phone: [facility]. Work Phone: Start: 03-14-2025 End: 03-14-[address] Harriett Draper MD Work Phone: -Laboratory Start: 03-14-2025 End: 03-14-[address] Miranda Hester MD -Laboratory Work Phone: Start: 03-13-2025 End: 03-13-[address] Miranda Hester MD [facility] Work Phone: Start: 03-13-2025 End: 03-14-[address] Harriett Draper MD Work Phone: [facility] Start: 01-18-2025 End: 01-18-[address] Miranda Hester MD -Laboratory [facility] Start: 01-18-2025 End: 01-18-2025 ambulatory Miranda Hester Facility:[facility] Start: 01-13-2025 End: 01-13-[address] Harriett Draper MD Work Phone: [facility] Work Phone: Start: 01-13-2025 End: 01-13-[address] Miranda Hester MD -Laboratory Specimen Work Phone: Start: 01-13-2025 End: 01-13-2025 ambulatory Miranda Hester Facility:[facility] Start: 01-09-2025 End: 01-09-[address] Harriett Draper MD Work Phone: [facility] Work Phone: Start: 01-09-2025 End: 01-09-[address] Miranda Hester MD -Laboratory [facility] Start: 01-09-2025 End: 01-09-2025 ambulatory [facility] Facility:[facility] Start: 12-05-2024 End: 12-05-[address] Miranda Hester MD [facility] Work Phone: Start: 12-05-2024 End: 12-05-[address] Harriett Draper MD Work Phone: [facility] Work Phone: Start: 12-05-2024 End: 12-05-2024 ambulatory [facility] Facility:[facility] Start: 09-14-2024 End: 09-14-2024 Telephone encounter Chanda Ocasio APRN.CNP Work Phone: Hematology/Oncology Start: 09-13-2024 End: 09-13-2024 ambulatory [facility] Facility:[facility] Start: 09-13-2024 End: 09-13-2024 Follow-up encounter Chanda Ocasio APRN.CNP Work Phone: Hematology/Oncology Comment on above: Encounter for follow -up surveillance of breast cancer (Primary Dx) Start: 09-13-2024 End: 09-13-2024 Patient encounter procedure Chanda Ocasio APRN.CNP Work Phone: Hematology/Oncology Start: 09-13-2024 End: 09-13-2024 Subsequent hospital visit by [facility] Comment on above: Invasive ductal carc inoma of left breast in female (HCC) [C50.912] Start: 09-08-2024 End: 09-12-2024 Telephone encounter Chanda Ocasio APRN.CNP Work Phone: Hematology/Oncology Comment on above: Patient Update Start: 09-07-2024 End: 09-09-2024 E-mail encounter from caregiver Chanda Ocasio APRN.CNP Work Phone: Hematology/Oncology Start: 09-07-2024 End: 09-09-2024 Patient encounter procedure Chanda Ocasio APRN.[employer] Work Phone: Hematology/Oncology Comment on above: Appointment Request Start: 08-29-2024 End: 08-29-[address] Miranda Hester MD [facility] Work Phone: Start: 08-29-2024 End: 08-29-[address] Miranda Hester MD [facility] Start: 08-29-2024 End: 08-29-2024 ambulatory Miranda Rangele Facility:[facility] Start: 08-29-2024 End: 08-29-2024 [facility]ulatory [facility] Start: 07-26-2024 End: 07-26-2024 [facility] Start: 07-25-2024 End: 07-25-2024 Emergency department patient visit [facility] Facility:[facility] Start: 05-25-2024 End: 05-25-2024 ambulatory savisyracusesunny Hester Facility:[facility] Start: 12-13-2023 End: 12-13-2023 ambulatory MIRANDA HESTER Facility:[facility] Start: 12-13-2023 End: 12-13-2023 Patient encounter procedure Cherrie Donis APRN.CNP Work Phone: [facility] Comment on above: Bacterial sinusitis (Primary Dx) Start: 12-02-2023 End: 12-02-[address] Miranda Hester Work Phone: [facility] Work Phone: Start: 12-02-2023 End: 12-02-[address] Miranda Hester Work Phone: [facility]-Outpatient Bone Densitometry Work Phone: Start: 10-16-2023 End: 10-16-[address] Miranda Hester Work Phone: [facility] Work Phone: Start: 10-16-[address] Servando Hester Work Phone: [facility] Start: 10-16-2023 End: 10-16-2023 Encounter for general adult medical examination without abnormal findings Dr. Miranda Hester Work Phone: [facility] Start: 10-16-2023 End: 10-16-[address] Miranda Hester Work Phone: [facility] Work Phone: Start: 07-27-2023 End: 07-27-2023 Emergency department patient visit Dr. Miranda Hester Work Phone: [facility]-Emergency Department Work Phone: Start: 06-29-2023 End: 06-29-[address] Miranda Hester Work Phone: [facility] Work Phone: Start: 06-29-2023 End: 06-29-2023 Emergency department patient visit Dr. Miranda Hester Work Phone: [facility] Start: 06-29-2023 End: 06-29-[address] Miranda Hester Work Phone: [facility] Work Phone: Start: 03-27-[address] Servando Hester Work Phone: [facility] Start: 03-27-2023 End: 03-27-[address] Miranda Hester Work Phone: [facility] Work Phone: Start: 03-27-2023 End: 03-27-2023 Emergency department patient visit Dr. Miranda Hester Work Phone: [facility] Start: 03-27-2023 End: 03-27-[address] Miranda Hester Work Phone: [facility] Work Phone: Start: 03-25-2023 End: 03-25-2023 Subsequent hospital visit by physician Screen Mammo [facility] Mammogram Comment on above: Encounter for screen ing mammogram for malignant neoplasm of breast [Z12.31] Start: 03-11-2023 End: 03-11-[address] Miranda Hester Work Phone: [facility] Work Phone: Start: 03-05-2023 End: 03-05-2023 Patient encounter procedure Amy Bossman [employer] Work Phone: [facility] Comment on above: Dermatitis (Primary Dx) Start: 03-04-2023 End: 03-04-[address] Miranda Hester Work Phone: [facility] Work Phone: Start: 03-04-2023 End: 03-04-[address] Miranda Hester Work Phone: [facility] Work Phone: Start: 03-02-2023 End: 03-02-2023 Patient encounter procedure Cherrie King JOHN.[employer] Work Phone: [facility] Comment on above: Rhus dermatitis (Solange katie Dx) Start: 01-20-2023 End: 01-20-[address] Miranda Hester Work Phone: [facility] Work Phone: Start: 01-06-2023 End: 01-06-[address] Miranda Hester Work Phone: [facility] Work Phone: Start: 12-23-2022 End: 12-23-[address] Miranda Hester Work Phone: [facility] Work Phone: Start: 12-09-2022 End: 12-09-[address] Miranda Hester Work Phone: [facility] Work Phone: Start: 11-25-2022 End: 11-25-[address] Miranda Hester Work Phone: [facility] Work Phone: Start: 11-10-2022 End: 11-10-[address] Miranda Hester Work Phone: [facility] Work Phone: Start: 10-24-2022 End: 10-24-[address] Miranda Hester Work Phone: [facility] Work Phone: Start: 10-24-2022 End: 10-24-[address] Miranda Hester Work Phone: [facility] [place] Start: 10-22-2022 End: 10-22-[address] Miranda Hester Work Phone: [facility] Start: 10-16-2022 End: 10-16-[address] Miranda Hester Work Phone: [facility] Work Phone: Start: 10-16-2022 End: 10-16-[address] Miranda Hester Work Phone: [facility] Start: 02-25-2022 End: 02-25-2022 Patient encounter procedure Cherrie Donis APRN.CNP Work Phone: [facility] Comment on above: Bacterial sinusitis (Primary Dx) Start: 01-20-2022 End: 01-20-[address] Miranda Hester Work Phone: [facility] [place] Start: 01-20-2022 End: 01-20-[address] Miranda Hester Work Phone: [facility] Internal Medicine Start: 01-15-2022 Telephone encounter Chanda le APRN.[employer] Work Phone: Hematology/Oncology Comment on above: Results Start: 01-15-2022 End: 01-15-2022 Subsequent hospital visit by physician [facility] Mob 1 Work Phone: Radiology Comment on above: Invasive ductal carc inoma of left breast in female (HCC) [C50.912] Start: 12-30-2021 Telephone encounter oJsselin Mejias PA-C Work Phone: [facility] Comment on above: Results Start: 12-30-2021 End: 12-30-2021 Patient encounter procedure Josselin Mejias PA-C Work Phone: [facility] Comment on above: Vertigo (Primary Dx) Start: 12-10-2021 End: 12-10-2021 ambulatory Chanda Ocasio APRN.[employer] Work Phone: Hematology/Oncology Comment on above: Invasive ductal carc inoma of left breast in female (HCC) (Primary Dx); Breast pain, left Start: 12-10-2021 End: 12-10-2021 Patient encounter procedure Chanda Ocasio APRN.[employer] Work Phone: [facility] Start: 10-30-2021 End: 10-30-[address] Miranda Hester Work Phone: [facility] Start: 10-28-2021 End: 10-28-[address] Miranda Hester Work Phone: [facility] Internal Medicine Start: 09-26-2021 End: 09-26-[address] Miranda Hester Work Phone: [facility]-Radiology, [facility] Start: 02-13-2012 Evaluation and management of inpatient Dr. Miranda Hester Work Phone: [facility]- Procedures Date Procedure Procedure Detail Performing Clinician Start: 03-24-2025 Blood pressure withi n normal parameters - no follow-up required Darin Covington MD Work Phone: Start: 03-24-2025 BMI documented as ab ove normal parameters - follow-up documented Darin Covington MD Work Phone: Start: 03-24-2025 Current tobacco non- user cad cap copd pv dm Darin Covington MD Work Phone: Start: 03-24-2025 Falls plan of care n ot done for unspecified reasons Darin Covington MD Work Phone: Start: 03-24-2025 Falls risk not docum ented - reason not given Darin Covington MD Work Phone: Start: 03-24-2025 Pt falls assess docd 2/> falls/fall w/injury/yr Darin Covington MD Work Phone: Start: 03-24-2025 Documentation of cur rent medications Darin Covington MD Work Phone: Start: 03-24-2025 Pain assessment documented as negative - follow-up not required Darin Covington MD Work Phone: Start: 03-14-2025 Total iron binding capacity measurement Dr. Harriett Draper MD Work Phone: Start: 01-18-2025 Total iron binding capacity measurement Dr. Harriett Draper MD Work Phone: Start: 01-13-2025 Measurement of occul t blood in stool specimen using immunoassay Dr. Harriett Draper MD Work Phone: Start: 01-12-2025 Measurement of occul t blood in stool specimen using immunoassay Dr. Harriett Draper MD Work Phone: Start: 01-11-2025 Measurement of occul t blood in stool specimen using immunoassay Dr. Harriett Draper MD Work Phone: Start: 01-09-2025 Vitamin D, 25-hydrox y measurement Dr. Harriett Draper MD Work Phone: Comment on above: Vitamin D StatusDefi ciency: <20 ng/mL (50nmol/L)Insufficiency: 20-30 ng/mL (50-75 nmol/L)Sufficiency: 30-100 ng/mL (75-250 nmol/L)Toxicity: >100 ng/mL (>250 nmol/L) Start: 12-05-2024 Total iron binding capacity measurement Dr. Harriett Draper MD Work Phone: Start: 09-13-2024 Mammography Yajaira aponte MD Work Phone: Start: 02-16-2024 History of operative procedure on knee S/P arthroscopic surgery of right knee Darin Covington MD Work Phone: Start: 12-02-2023 Dual energy X-ray absorptiometry Dr. Miranda Hester Work Phone: Start: 07-27-2023 History of excision of lamina of lumbar vertebra for decompression of spinal cord History of major orthopedic surgery Darin Covington MD Work Phone: Start: 06-29-2023 Plain chest X-ray Dr. Servando Hester Work Phone: Start: 03-25-2023 Screening digital br east tomosynthesis bi Cabrera Schultz DO Work Phone: Start: 03-04-2023 MRI of lumbar spine Dr. Miranda Hester Work Phone: Start: 01-15-2022 breast uni real t jacquelyn with image limited Chanda Ocasio APRN.CNP Work Phone: Start: 01-15-2022 Mammography Chanda Arabella enter [employer] Work Phone: Start: 12-09-2021 Adult depression screening assessment Chanda Ocasio [employer] Work Phone: Start: 10-30-2021 MRI of joint of lowe r extremity Dr. Miranda Hester Work Phone: Start: 09-26-2021 Inj/Asp Tariq Jt Should/Hip/Knee Dr. Miranda Hester Work Phone: Start: 02-22-2021 Mammography Chanda Arabella enter [employer] Work Phone: Start: 04-03-2020 Colonoscopy Chanda Bell enter [employer] Work Phone: Start: 06-02-2016 Lipid 1996 panel - S earlene or Plasma Screen Wstr Start: 03-13-2015 Colonoscopy Josselin Mejias PA-C Work Phone: Plan of Treatment Date Care Activity Detail Author Start: 09-28-2025 End: 09-28-2025 Follow-up encounter 09/28/2025 8:00 AM EST Visit (SP) Office Hematology/Oncology [address] [place] [id number] Chanda Ocasio [employer] [address] [place] [address] 1 YR FOLLOW UP OV Hematology/Oncology Comment on above: 1 YR FOLLOW UP OV Start: 09-21-2025 End: 09-21-2025 Patient encounter procedure 09/21/2025 7:30 AM EST Appointment Mammogram [address] [place] [address] [phone] Referral Status: Closed Mammogram Comment on above: [id number] Referral [facility]: Closed Start: 09-14-2025 End: 10-14-2025 DBT Breast - bilateral screening SPENCER SCREENING W [facility] Radiology Routine Invasive ductal carcinoma of left breast in female (HCC) Encounter for screening mammogram for high-risk patient Expected: 09/14/2025, Expires: 10/14/2025 [facility] Work Phone: Comment on above: Expected: 09/14/2025 , Expires: 10/14/2025 Start: 09-13-2025 BP Controlled (<130/80) BP Controlle d (<130/80) [facility] Start: 09-13-2025 Screening for malign ant neoplasm of breast Mammogram [facility] Start: 06-16-2025 End: 06-16-2025 Clinical Support 06/16/2025 8:00 AM EDT Clinical Support [facility] [address] [place] [id number] Harsha Riggins, Solange [address] [phone] [facility] Start: 05-01-2025 COVID-19 Vaccine ( season) COVID-19 Vaccine () [facility] Start: 05-01-2025 Influenza vaccination Influenza Vacc ine (#1) [facility] Start: 04-03-2025 Colonoscopy COLONOSCOPY [facility] Start: 04-03-2025 COLORECTAL CANCER SCREENING COLORECTAL CANCER SCREENING [facility] Start: 03-24-2025 End: 03-24-2025 [employer] Work Phone: Start: 03-24-2025 Radex spine lumbosac ral 2/3 views [facility] Work Phone: Start: 12-30-2024 DIABETES SCREEN [facility] Start: 12-30-2024 Diabetes Screening Diabetes Screenin g [facility] Start: 12-12-2024 BP Controlled (<130/80) BP Controlle d (<130/80) [facility] Start: 09-23-2024 Evaluation of diagno stic study results [facility] Start: 09-13-2024 End: 09-13-2024 Patient encounter procedure 09/13/2024 9:30 AM EST Appointment Mammogram [address] [place], [place] [phone] Invasive ductal carcinoma of left breast in female (HCC) [C50.912] Mammogram Comment on above: Invasive ductal carc inoma of left breast in female (HCC) [C50.912] Start: 09-13-2024 End: 09-13-2024 ambulatory 09/13/2024 9:00 AM EST Visit (SP) Office Hematology/Oncology [address] [place] [address] Chanda Ocasio APRN.[employer] [address] [place] [phone] [facility] Hematology/Oncology Comment on above: OV Start: 08-31-2024 Advance Directive Discussion Advance Directive Discussion [facility] Start: 05-01-2024 Influenza vaccination [facility] Start: 03-25-2024 Mammography Mammogram Screening [facility] Start: 03-25-2024 Screening for malign ant neoplasm of breast Mammogram Screening [facility] Start: 02-08-2024 Respiratory Syncytia l Virus Immunization: Risk, 60-74 Risk, or 75+ (1 - 1-dose 75+ series) Respiratory Syncytial Virus Immunization: Risk, 60-74 Risk, or 75+ (1 - 1-dose 75+ series) [facility] Start: 02-08-2024 RSV Vaccine (1 - 1-d ose 75+ series) RSV Vaccine (1 - 1-dose 75+ series) [facility] Start: 10-16-2023 Patient referral [facility] Work Phone: Start: 08-31-2023 Advance Directive Discussion Advance Directive Discussion [facility] Start: 08-31-2023 Behavioral Health Screening Behavioral Health Screening [facility] Start: 07-27-2023 [facility] Start: 06-29-2023 Evaluation of diagno stic study results [facility] Start: 05-01-2023 Influenza vaccination [facility] Start: 02-25-2023 BP CONTROLLED (<130/80) BP CONTROLLE D (<130/80) [facility] Start: 01-15-2023 Mammography MAMMOGRAM [facility] Start: 12-30-2022 BP CONTROLLED (<130/80) BP CONTROLLE D (<130/80) [facility] Start: 12-10-2022 BP CONTROLLED (<130/80) BP CONTROLLE D (<130/80) [facility] Start: 12-09-2022 Adult depression screening assessment DEPRESSION SCREENING [facility] Start: 08-31-2022 ADVANCE DIRECTIVE DISCUSSION ADVANCE DIRECTIVE DISCUSSION [facility] Start: 08-31-2022 DEPRESSION ASSESSMENT DEPRESSION ASS ESSMENT [facility] Start: 05-01-2022 Influenza vaccination INFLUENZ A (Season Ended) [facility] Start: 02-22-2022 Mammography MAMMOGRAM [facility] Start: 08-31-2021 ADVANCE DIRECTIVE DISCUSSION ADVANCE DIRECTIVE DISCUSSION [facility] Start: 06-02-2021 Lipid 1996 panel - S earlene or Plasma Lipid Screening [facility] Start: 06-02-2021 Lipid [address] Lipid Screening [facility] Start: 06-02-2021 LIPID SCREEN LIPID SCREEN [facility] Start: 03-13-2020 Colonoscopy COLONOSCOPY [facility] Start: 03-13-2020 COLORECTAL CANCER SCREENING COLORECTAL CANCER SCREENING [facility] Start: 03-13-2020 Screening for malign ant neoplasm of colon [facility] Start: 02-26-2020 DIABETES SCREEN DIABETES SCREEN [facility] Start: 02-25-2018 ANNUAL PCP TEAM CONTRACT WRITER [place] DISEASE VISIT ANNUAL PCP TEAM CHRONIC DISEASE VISIT [facility] Start: 2014 Fall risk assessment Falls Risk Asse ssment [facility] Start: 05-01-2012 Screening for malign ant neoplasm of cervix Cervical Cancer Screening [facility] Start: 2009 RSV Vaccine (1 - 1-d ose 60+ series) RSV Vaccine (1 - 1-dose 60+ series) [facility] Start: 1999 Administration of he rpes zoster vaccine Zoster Vaccines (1 of 2) [facility] Start: 1999 Pneumococcal Vaccine : Age 50+ (1 of 1 - PCV) Pneumococcal Vaccine: Age 50+ (1 of 1 - PCV) [facility] Start: 1999 SHINGRIX VACCINE (1 of 2) SHINGRIX VACCINE (1 of 2) [facility] Start: 1994 COLOGUARD (FIT-DNA) COLOGUARD (FIT-D NA) [facility] Start: [address] COLONOGRAPHY [facility] Start: 1994 FECAL OCCULT BLOOD FECAL OCCULT BLOO D [facility] Start: 1994 Screening for malign ant neoplasm of colon [facility] Start: 1994 SIGMOIDOSCOPY SIGMOIDOSCOPY [facility] Start: 02-08-1968 Pneumococcal Vaccine : 50+ (1 of 2 - PCV) Pneumococcal Vaccine: 50+ (1 of 2 - PCV) [facility] Start: 02-08-1968 SHINGRIX VACCINE (1 of 2) SHINGRIX VACCINE (1 of 2) [facility] Start: 02-08-1968 Urine microalbumin profile [facility] Start: 1967 ANNUAL PCP TEAM CONTRACT WRITER [place] DISEASE VISIT ANNUAL PCP TEAM CHRONIC DISEASE VISIT [facility] Start: 1967 Anxiety Screening Anxiety Screening [facility] Start: 1967 BP CONTROLLED (<130/80) BP CONTROLLE D (<130/80) [facility] Start: 1967 Depression Screening Depression Scre ening [facility] Start: 1967 HEPATITIS C SCREENING HEPATITIS C [facility] Start: 1967 Hepatitis C screening Hepatitis C Sc [facility] Start: 1961 COVID-19 VACCINE (1) COVID-19 VACCIN E (1) [facility] Start: 1961 Depression screening using PHQ-9 (Patient Health Questionnaire 9) score Depression Screening/Follow-Up (PHQ-2/9) [facility] Start: 1955 Pneumococcal Vaccine : 65+ (1 - PCV) Pneumococcal Vaccine: 65+ (1 - PCV) [facility] Start: 1955 Pneumococcal Vaccine : 65+ (1 of 2 - PCV) Pneumococcal Vaccine: 65+ (1 of 2 - PCV) [facility] Start: 1955 PNEUMOCOCCAL: 65+ (1 - PCV) PNEUMOCOCCAL: 65+ (1 - PCV) [facility] Start: 1954 COVID-19 VACCINE (#1) COVID-19 VACCI NE (#1) [facility] Start: 02-08-1952 History and physical examination, annual for health maintenance Wellness Visit [facility] Start: 02-08-1953 Medicare Wellness Visit Medicare Wel lness Visit [facility] Start: 1950 COVID-19 VACCINE (#1) COVID-19 VACCI NE (#1) [facility] Start: 1950 Screening for osteoporosis Dexa Scan [facility] Start: 1950 Tetanus vaccination Tetanus: Every 1 0yrs [facility] CBC W Auto Different ial panel - Blood [facility] CBC W Auto Different ial panel - Blood [facility] Comprehensive metabo lic 2000 panel - Serum or Plasma [facility] End: 10-12-2025 DBT Breast - bilateral screening SPENCER SCREENING W SHANEL Radiology Routine Invasive ductal carcinoma of left breast in female (HCC) Encounter for screening mammogram for high-risk patient 1 Occurrences starting 09/12/2024 until 10/12/2025 [facility] Work Phone: Comment on above: 1 Occurrences starti ng 09/12/2024 until 10/12/2025 DBT Breast - bilater al screening SPENCER SCREENING W SHANEL Radiology Routine Invasive ductal carcinoma of left breast in female (HCC) Encounter for screening mammogram for high-risk patient 09/13/2024 10:02 AM EST [facility] Work Phone: End: 01-09-2023 Diagnostic mammography computer-aided detcj bi SPENCER DIAGNOSTIC BILAT Radiology Routine Invasive ductal carcinoma of left breast in female (HCC) Breast pain, left 1 Occurrences starting 12/10/2021 until 01/09/2023 [facility] Work Phone: Comment on above: 1 Occurrences starti ng 12/10/2021 until 01/09/2023 DXA Bone [Mass/Area] Bone density [facility] Ferritin [Mass/volum e] in Serum or Plasma [facility] Hemoglobin A1c/Hemoglobin.total in Blood [facility] Iron and Iron bindin g capacity panel - Serum or Plasma [facility] Lipid 1996 panel - S earlene or Plasma [facility] Patient Education ED Tendonitis [facility] Work Phone: Patient referral [facility] Work Phone: Urine microalbumin/creatinine ratio measurement [facility] End: 01-09-2023 Us breast uni real time with image limited US BREAST LTD LT Radiology Routine Invasive ductal carcinoma of left breast in female (HCC) Breast pain, left 1 Occurrences starting 12/10/2021 until 01/09/2023 [facility] Work Phone: Comment on above: 1 Occurrences starti ng 12/10/2021 until 01/09/2023 [facility] Immunizations Immunization Date Immunization Notes Care Provider Jovanny terrell 10-23-2016 influenza virus vacc ine, unspecified formulation Screen Wstr [facility] Payers Date Payer Category Payer Medicare PLAN G 2024 Self-pay [id number] 2022 Miscellaneous or Other COMMERCIA L [id number] 2022 Medicare [id number] 2020 Unknown HOSPITAL/MEDICAL GENERIC MEDICAL GENERIC [id number] 2020-Present [phone] [address] [address] [place] [address] Indemnity [id number] 2020 Unknown [id number] 2014 Medicare MEDICARE MEDICAR E A AND B [id number] 2014-Present [phone] [address] [address] [place] [address] Medicare [id number] 2014 Medicare [id number] 2014 Medicare [id number] 2014 Medicare [id number] 1950 Unknown [id number] 1950 Unknown [id number]. 903 Unknown [id number] Unknown [id number] Unknown [id number] Unknown [id number] Unknown [id number]. 462 Unknown [id number] [id number]. 462 Unknown [id number] 2.840.1.242084.3.579.2. 462 Unknown [id number] 2.840.1.974606.3.579.2. 462 Unknown [id number] 2.840.1.001152.3.579.2. 462 Unknown [id number] [id number]. 462 Unknown [id number] [id number]. 462 Unknown [id number]. 462 Unknown [id number]. 462 Unknown [id number]. 462 Unknown [id number]. 462 Unknown [id number] 462 Social History Date Type Detail Facility Start: 03-02-2023 End: 05-09-2025 Tobacco smoking status NHIS Never smoked tobacco [facility] Start: 12-10-2021 End: 09-13-2024 Alcohol intake Current non-drinker of alcohol (finding) [facility] Start: 1950 Sex Assigned At Female [facility] Start: 11-30-2021 End: 02-25-2022 Exposure to SARS-CoV-2 (event) Not sure [facility] Start: 01-20-2022 End: 10-16-2023 Tobacco smoking status OKIS Unknown if ever smoked [facility] Start: 02-10-2020 None [facility] Start: 02-10-2020 With Family [facility] Start: 03-28-2020 Non-smoker [facility] Start: 03-02-2023 End: 05-09-2025 Tobacco use and exposure Smokeless tobacco non-user [facility] Start: 03-05-2023 End: 05-09-2025 History of Social function [facility] Start: 03-05-2023 End: 05-09-2025 Tobacco use panel [facility] Adult Depression Screening Assessment 2 [facility] Start: 02-21-2021 Gender identity Identifies as female gender (finding) [facility] Start: 12-03-2021 Sexual orientation Heterosexual (fin ding) [facility] Start: 12-08-2024 Sex Female (finding) [facility] Start: 05-09-2025 Alcoholic beverage intake Lifetime non-drinker (finding) [facility] Start: 1950 Sex assigned at Not on file [facility] NEGATED: Highlighted rowStart: NINF History of tobacco use Passive smoker [facility] Medical Equipment Procedure Code Equipment Code Equipment Origin al Text Equipment Identifier Dates Blood Sugar Diagnostic (Accu-Chek Guide Test Strips) strip Start: 10-28-2021 Blood Sugar Diagnostic (Blood Glucose Test) strip Start: 04-22-2021 Lancets (Acti-La nce Lancets) 17 gauge misc Start: 11-05-2021 Blood Sugar Diagnostic (Accu-Chek Guide Test Strips) strip Start: 07-05-2021 End: 07-05-2021 Blood Sugar Diagnostic (Accu-Chek Guide Test Strips) strip Start: 07-05-2021 End: 07-24-2021 Blood Sugar Diagnostic (Accu-Chek Guide Test Strips) strip Start: 07-24-2021 End: 07-24-2021 Blood Sugar Diagnostic (Accu-Chek Guide Test Strips) strip Start: 07-24-2021 End: 10-28-2021 Blood Sugar Diagnostic (Blood Glucose Test) strip Start: 04-19-2021 End: 04-19-2021 Blood Sugar Diagnostic (Blood Glucose Test) strip Start: 04-19-2021 End: 04-19-2021 Blood Sugar Diagnostic (Blood Glucose Test) strip Start: 04-19-2021 End: 04-22-2021 Lancets (Acti-La nce Lancets) 17 gauge misc Start: 07-05-2021 End: 07-08-2021 Lancets (Acti-La nce Lancets) 17 gauge misc Start: 10-28-2021 End: 11-05-2021 Lancets (Acti-La nce Lancets) 17 gauge misc Start: 07-08-2021 End: 10-28-2021 Blood Sugar Diagnostic (Accu-Chek Guide Test Strips) strip Start: 10-28-2021 Blood Sugar Diagnostic (Blood Glucose Test) strip Start: 04-22-2021 Lancets (Acti-La nce Lancets) 17 gauge misc Start: 11-05-2021 Blood Sugar Diagnostic (Accu-Chek Guide Test Strips) strip Start: 07-05-2021 End: 07-05-2021 Blood Sugar Diagnostic (Accu-Chek Guide Test Strips) strip Start: 07-05-2021 End: 07-24-2021 Blood Sugar Diagnostic (Accu-Chek Guide Test Strips) strip Start: 07-24-2021 End: 07-24-2021 Blood Sugar Diagnostic (Accu-Chek Guide Test Strips) strip Start: 07-24-2021 End: 10-28-2021 Blood Sugar Diagnostic (Blood Glucose Test) strip Start: 04-19-2021 End: 04-19-2021 Blood Sugar Diagnostic (Blood Glucose Test) strip Start: 04-19-2021 End: 04-19-2021 Blood Sugar Diagnostic (Blood Glucose Test) strip Start: 04-19-2021 End: 04-22-2021 Lancets (Acti-La nce Lancets) 17 gauge misc Start: 07-05-2021 End: 07-08-2021 Lancets (Acti-La nce Lancets) 17 gauge misc Start: 10-28-2021 End: 11-05-2021 Lancets (Acti-La nce Lancets) 17 gauge misc Start: 07-08-2021 End: 10-28-2021 Blood Sugar Diagnostic (Accu-Chek Guide Test Strips) strip Start: 10-28-2021 Blood Sugar Diagnostic (Blood Glucose Test) strip Start: 04-22-2021 Lancets (Acti-La nce Lancets) 17 gauge misc Start: 11-05-2021 Blood Sugar Diagnostic (Accu-Chek Guide Test Strips) strip Start: 07-05-2021 End: 07-05-2021 Blood Sugar Diagnostic (Accu-Chek Guide Test Strips) strip Start: 07-05-2021 End: 07-24-2021 Blood Sugar Diagnostic (Accu-Chek Guide Test Strips) strip Start: 07-24-2021 End: 07-24-2021 Blood Sugar Diagnostic (Accu-Chek Guide Test Strips) strip Start: 07-24-2021 End: 10-28-2021 Blood Sugar Diagnostic (Blood Glucose Test) strip Start: 04-19-2021 End: 04-19-2021 Blood Sugar Diagnostic (Blood Glucose Test) strip Start: 04-19-2021 End: 04-19-2021 Blood Sugar Diagnostic (Blood Glucose Test) strip Start: 04-19-2021 End: 04-22-2021 Lancets (Acti-La nce Lancets) 17 gauge misc Start: 07-05-2021 End: 07-08-2021 Lancets (Acti-La nce Lancets) 17 gauge misc Start: 10-28-2021 End: 11-05-2021 Lancets (Acti-La nce Lancets) 17 gauge misc Start: 07-08-2021 End: 10-28-2021 Blood Sugar Diagnostic (Accu-Chek Guide Test Strips) strip Start: 10-28-2021 Blood Sugar Diagnostic (Blood Glucose Test) strip Start: 04-22-2021 Lancets (Acti-La nce Lancets) 17 gauge misc Start: 11-05-2021 Blood Sugar Diagnostic (Accu-Chek Guide Test Strips) strip Start: 07-05-2021 End: 07-05-2021 Blood Sugar Diagnostic (Accu-Chek Guide Test Strips) strip Start: 07-05-2021 End: 07-24-2021 Blood Sugar Diagnostic (Accu-Chek Guide Test Strips) strip Start: 07-24-2021 End: 07-24-2021 Blood Sugar Diagnostic (Accu-Chek Guide Test Strips) strip Start: 07-24-2021 End: 10-28-2021 Blood Sugar Diagnostic (Blood Glucose Test) strip Start: 04-19-2021 End: 04-19-2021 Blood Sugar Diagnostic (Blood Glucose Test) strip Start: 04-19-2021 End: 04-19-2021 Blood Sugar Diagnostic (Blood Glucose Test) strip Start: 04-19-2021 End: 04-22-2021 Lancets (Acti-La nce Lancets) 17 gauge misc Start: 07-05-2021 End: 07-08-2021 Lancets (Acti-La nce Lancets) 17 gauge misc Start: 10-28-2021 End: 11-05-2021 Lancets (Acti-La nce Lancets) 17 gauge misc Start: 07-08-2021 End: 10-28-2021 Blood Sugar Diagnostic (Accu-Chek Guide Test Strips) strip Start: 10-28-2021 Blood Sugar Diagnostic (Blood Glucose Test) strip Start: 04-22-2021 Lancets (Acti-La nce Lancets) 17 gauge misc Start: 11-05-2021 Blood Sugar Diagnostic (Accu-Chek Guide Test Strips) strip Start: 07-05-2021 End: 07-05-2021 Blood Sugar Diagnostic (Accu-Chek Guide Test Strips) strip Start: 07-05-2021 End: 07-24-2021 Blood Sugar Diagnostic (Accu-Chek Guide Test Strips) strip Start: 07-24-2021 End: 07-24-2021 Blood Sugar Diagnostic (Accu-Chek Guide Test Strips) strip Start: 07-24-2021 End: 10-28-2021 Blood Sugar Diagnostic (Blood Glucose Test) strip Start: 04-19-2021 End: 04-19-2021 Blood Sugar Diagnostic (Blood Glucose Test) strip Start: 04-19-2021 End: 04-19-2021 Blood Sugar Diagnostic (Blood Glucose Test) strip Start: 04-19-2021 End: 04-22-2021 Lancets (Acti-La nce Lancets) 17 gauge misc Start: 07-05-2021 End: 07-08-2021 Lancets (Acti-La nce Lancets) 17 gauge misc Start: 10-28-2021 End: 11-05-2021 Lancets (Acti-La nce Lancets) 17 gauge misc Start: 07-08-2021 End: 10-28-2021 Blood Sugar Diagnostic (Accu-Chek Guide Test Strips) strip Start: 10-28-2021 Blood Sugar Diagnostic (Blood Glucose Test) strip Start: 04-22-2021 Lancets (Acti-La nce Lancets) 17 gauge misc Start: 11-05-2021 Blood Sugar Diagnostic (Accu-Chek Guide Test Strips) strip Start: 07-05-2021 End: 07-05-2021 Blood Sugar Diagnostic (Accu-Chek Guide Test Strips) strip Start: 07-05-2021 End: 07-24-2021 Blood Sugar Diagnostic (Accu-Chek Guide Test Strips) strip Start: 07-24-2021 End: 07-24-2021 Blood Sugar Diagnostic (Accu-Chek Guide Test Strips) strip Start: 07-24-2021 End: 10-28-2021 Blood Sugar Diagnostic (Blood Glucose Test) strip Start: 04-19-2021 End: 04-19-2021 Blood Sugar Diagnostic (Blood Glucose Test) strip Start: 04-19-2021 End: 04-19-2021 Blood Sugar Diagnostic (Blood Glucose Test) strip Start: 04-19-2021 End: 08-23-2021 Lancets (Acti-La nce Lancets) 17 gauge misc Start: 07-05-2021 End: 07-08-2021 Lancets (Acti-La nce Lancets) 17 gauge misc Start: 10-28-2021 End: 11-05-2021 Lancets (Acti-La nce Lancets) 17 gauge misc Start: 07-08-2021 End: 10-28-2021 Blood Sugar Diagnostic (Accu-Chek Guide Test Strips) strip Start: 10-28-2021 Blood Sugar Diagnostic (Blood Glucose Test) strip Start: 04-22-2021 Lancets (Acti-La nce Lancets) 17 gauge misc Start: 11-05-2021 Blood Sugar Diagnostic (Accu-Chek Guide Test Strips) strip Start: 07-05-2021 End: 07-05-2021 Blood Sugar Diagnostic (Accu-Chek Guide Test Strips) strip Start: 07-05-2021 End: 07-24-2021 Blood Sugar Diagnostic (Accu-Chek Guide Test Strips) strip Start: 07-24-2021 End: 07-24-2021 Blood Sugar Diagnostic (Accu-Chek Guide Test Strips) strip Start: 07-24-2021 End: 10-28-2021 Blood Sugar Diagnostic (Blood Glucose Test) strip Start: 04-19-2021 End: 04-19-2021 Blood Sugar Diagnostic (Blood Glucose Test) strip Start: 04-19-2021 End: 04-19-2021 Blood Sugar Diagnostic (Blood Glucose Test) strip Start: 04-19-2021 End: 04-22-2021 Lancets (Acti-La nce Lancets) 17 gauge misc Start: 07-05-2021 End: 07-08-2021 Lancets (Acti-La nce Lancets) 17 gauge misc Start: 10-28-2021 End: 11-05-2021 Lancets (Acti-La nce Lancets) 17 gauge misc Start: 07-08-2021 End: 10-28-2021 Blood Sugar Diagnostic (Accu-Chek Guide Test Strips) strip Start: 10-28-2021 Blood Sugar Diagnostic (Blood Glucose Test) strip Start: 04-22-2021 Lancets (Acti-La nce Lancets) 17 gauge misc Start: 11-05-2021 Blood Sugar Diagnostic (Accu-Chek Guide Test Strips) strip Start: 07-05-2021 End: 07-05-2021 Blood Sugar Diagnostic (Accu-Chek Guide Test Strips) strip Start: 07-05-2021 End: 07-24-2021 Blood Sugar Diagnostic (Accu-Chek Guide Test Strips) strip Start: 07-24-2021 End: 07-24-2021 Blood Sugar Diagnostic (Accu-Chek Guide Test Strips) strip Start: 07-24-2021 End: 10-28-2021 Blood Sugar Diagnostic (Blood Glucose Test) strip Start: 04-19-2021 End: 04-19-2021 Blood Sugar Diagnostic (Blood Glucose Test) strip Start: 04-19-2021 End: 04-19-2021 Blood Sugar Diagnostic (Blood Glucose Test) strip Start: 04-19-2021 End: 04-22-2021 Lancets (Acti-La nce Lancets) 17 gauge misc Start: 07-05-2021 End: 07-08-2021 Lancets (Acti-La nce Lancets) 17 gauge misc Start: 10-28-2021 End: 11-05-2021 Lancets (Acti-La nce Lancets) 17 gauge misc Start: 07-08-2021 End: 10-28-2021 Blood Sugar Diagnostic (Accu-Chek Guide Test Strips) strip Start: 10-28-2021 Blood Sugar Diagnostic (Blood Glucose Test) strip Start: 04-22-2021 Lancets (Acti-La nce Lancets) 17 gauge misc Start: 11-05-2021 Blood Sugar Diagnostic (Accu-Chek Guide Test Strips) strip Start: 07-05-2021 End: 07-05-2021 Blood Sugar Diagnostic (Accu-Chek Guide Test Strips) strip Start: 07-05-2021 End: 07-24-2021 Blood Sugar Diagnostic (Accu-Chek Guide Test Strips) strip Start: 07-24-2021 End: 07-24-2021 Blood Sugar Diagnostic (Accu-Chek Guide Test Strips) strip Start: 07-24-2021 End: 10-28-2021 Blood Sugar Diagnostic (Blood Glucose Test) strip Start: 04-19-2021 End: 04-19-2021 Blood Sugar Diagnostic (Blood Glucose Test) strip Start: 04-19-2021 End: 04-19-2021 Blood Sugar Diagnostic (Blood Glucose Test) strip Start: 04-19-2021 End: 04-22-2021 Lancets (Acti-La nce Lancets) 17 gauge misc Start: 07-05-2021 End: 07-08-2021 Lancets (Acti-La nce Lancets) 17 gauge misc Start: 10-28-2021 End: 11-05-2021 Lancets (Acti-La nce Lancets) 17 gauge misc Start: 07-08-2021 End: 10-28-2021 Blood Sugar Diagnostic (Accu-Chek Guide Test Strips) strip Start: 10-25-2024 Blood Sugar Diagnostic (Blood Glucose Test) strip Start: 10-25-2024 Lancets (Acti-La nce Lancets) 17 gauge misc Start: 10-25-2024 Blood Sugar Diagnostic (Accu-Chek Guide Test Strips) strip Start: 07-05-2021 End: 07-05-2021 Blood Sugar Diagnostic (Accu-Chek Guide Test Strips) strip Start: 07-05-2021 End: 07-24-2021 Blood Sugar Diagnostic (Accu-Chek Guide Test Strips) strip Start: 10-28-2021 End: 10-25-2024 Blood Sugar Diagnostic (Accu-Chek Guide Test Strips) strip Start: 07-24-2021 End: 07-24-2021 Blood Sugar Diagnostic (Accu-Chek Guide Test Strips) strip Start: 07-24-2021 End: 10-28-2021 Blood Sugar Diagnostic (Blood Glucose Test) strip Start: 04-19-2021 End: 04-19-2021 Blood Sugar Diagnostic (Blood Glucose Test) strip Start: 04-19-2021 End: 04-19-2021 Blood Sugar Diagnostic (Blood Glucose Test) strip Start: 04-19-2021 End: 04-22-2021 Blood Sugar Diagnostic (Blood Glucose Test) strip Start: 04-22-2021 End: 10-25-2024 Lancets (Acti-La nce Lancets) 17 gauge misc Start: 07-05-2021 End: 07-08-2021 Lancets (Acti-La nce Lancets) 17 gauge misc Start: 10-28-2021 End: 11-05-2021 Lancets (Acti-La nce Lancets) 17 gauge misc Start: 07-08-2021 End: 10-28-2021 Lancets (Acti-La nce Lancets) 17 gauge misc Start: 11-05-2021 End: 10-25-2024 Blood Sugar Diagnostic (Accu-Chek Guide Test Strips) strip Start: 10-25-2024 Blood Sugar Diagnostic (Blood Glucose Test) strip Start: 10-25-2024 Lancets (Acti-La nce Lancets) 17 gauge misc Start: 10-25-2024 Blood Sugar Diagnostic (Accu-Chek Guide Test Strips) strip Start: 07-05-2021 End: 07-05-2021 Blood Sugar Diagnostic (Accu-Chek Guide Test Strips) strip Start: 07-05-2021 End: 07-24-2021 Blood Sugar Diagnostic (Accu-Chek Guide Test Strips) strip Start: 10-28-2021 End: 10-25-2024 Blood Sugar Diagnostic (Accu-Chek Guide Test Strips) strip Start: 07-24-2021 End: 07-24-2021 Blood Sugar Diagnostic (Accu-Chek Guide Test Strips) strip Start: 07-24-2021 End: 10-28-2021 Blood Sugar Diagnostic (Blood Glucose Test) strip Start: 04-19-2021 End: 04-19-2021 Blood Sugar Diagnostic (Blood Glucose Test) strip Start: 04-19-2021 End: 04-19-2021 Blood Sugar Diagnostic (Blood Glucose Test) strip Start: 04-19-2021 End: 04-22-2021 Blood Sugar Diagnostic (Blood Glucose Test) strip Start: 04-22-2021 End: 10-25-2024 Lancets (Acti-La nce Lancets) 17 gauge misc Start: 07-05-2021 End: 07-08-2021 Lancets (Acti-La nce Lancets) 17 gauge misc Start: 10-28-2021 End: 11-05-2021 Lancets (Acti-La nce Lancets) 17 gauge misc Start: 07-08-2021 End: 10-28-2021 Lancets (Acti-La nce Lancets) 17 gauge misc Start: 11-05-2021 End: 10-25-2024 Blood Sugar Diagnostic (Accu-Chek Guide Test Strips) strip Start: 10-25-2024 Blood Sugar Diagnostic (Blood Glucose Test) strip Start: 10-25-2024 Lancets (Acti-La nce Lancets) 17 gauge misc Start: 10-25-2024 Blood Sugar Diagnostic (Accu-Chek Guide Test Strips) strip Start: 07-05-2021 End: 07-05-2021 Blood Sugar Diagnostic (Accu-Chek Guide Test Strips) strip Start: 07-05-2021 End: 07-24-2021 Blood Sugar Diagnostic (Accu-Chek Guide Test Strips) strip Start: 10-28-2021 End: 10-25-2024 Blood Sugar Diagnostic (Accu-Chek Guide Test Strips) strip Start: 07-24-2021 End: 07-24-2021 Blood Sugar Diagnostic (Accu-Chek Guide Test Strips) strip Start: 07-24-2021 End: 10-28-2021 Blood Sugar Diagnostic (Blood Glucose Test) strip Start: 04-19-2021 End: 04-19-2021 Blood Sugar Diagnostic (Blood Glucose Test) strip Start: 04-19-2021 End: 04-19-2021 Blood Sugar Diagnostic (Blood Glucose Test) strip Start: 04-19-2021 End: 04-22-2021 Blood Sugar Diagnostic (Blood Glucose Test) strip Start: 04-22-2021 End: 10-25-2024 Lancets (Acti-La nce Lancets) 17 gauge misc Start: 07-05-2021 End: 07-08-2021 Lancets (Acti-La nce Lancets) 17 gauge misc Start: 10-28-2021 End: 11-05-2021 Lancets (Acti-La nce Lancets) 17 gauge misc Start: 07-08-2021 End: 10-28-2021 Lancets (Acti-La nce Lancets) 17 gauge misc Start: 11-05-2021 End: 10-25-2024 Blood Sugar Diagnostic (Accu-Chek Guide Test Strips) strip Start: 10-25-2024 Blood Sugar Diagnostic (Blood Glucose Test) strip Start: 10-25-2024 Lancets (Acti-La nce Lancets) 17 gauge misc Start: 10-25-2024 Blood Sugar Diagnostic (Accu-Chek Guide Test Strips) strip Start: 07-05-2021 End: 07-05-2021 Blood Sugar Diagnostic (Accu-Chek Guide Test Strips) strip Start: 07-05-2021 End: 07-24-2021 Blood Sugar Diagnostic (Accu-Chek Guide Test Strips) strip Start: 10-28-2021 End: 10-25-2024 Blood Sugar Diagnostic (Accu-Chek Guide Test Strips) strip Start: 07-24-2021 End: 07-24-2021 Blood Sugar Diagnostic (Accu-Chek Guide Test Strips) strip Start: 07-24-2021 End: 10-28-2021 Blood Sugar Diagnostic (Blood Glucose Test) strip Start: 04-19-2021 End: 04-19-2021 Blood Sugar Diagnostic (Blood Glucose Test) strip Start: 04-19-2021 End: 04-19-2021 Blood Sugar Diagnostic (Blood Glucose Test) strip Start: 04-19-2021 End: 04-22-2021 Blood Sugar Diagnostic (Blood Glucose Test) strip Start: 04-22-2021 End: 10-25-2024 Lancets (Acti-La nce Lancets) 17 gauge misc Start: 07-05-2021 End: 07-08-2021 Lancets (Acti-La nce Lancets) 17 gauge misc Start: 10-28-2021 End: 11-05-2021 Lancets (Acti-La nce Lancets) 17 gauge misc Start: 07-08-2021 End: 10-28-2021 Lancets (Acti-La nce Lancets) 17 gauge misc Start: 11-05-2021 End: 10-25-2024 Blood Sugar Diagnostic (Accu-Chek Guide Test Strips) strip Start: 10-25-2024 Blood Sugar Diagnostic (Blood Glucose Test) strip Start: 10-25-2024 Lancets (Acti-La nce Lancets) 17 gauge misc Start: 10-25-2024 Blood Sugar Diagnostic (Accu-Chek Guide Test Strips) strip Start: 07-05-2021 End: 07-05-2021 Blood Sugar Diagnostic (Accu-Chek Guide Test Strips) strip Start: 07-05-2021 End: 07-24-2021 Blood Sugar Diagnostic (Accu-Chek Guide Test Strips) strip Start: 10-28-2021 End: 10-25-2024 Blood Sugar Diagnostic (Accu-Chek Guide Test Strips) strip Start: 07-24-2021 End: 07-24-2021 Blood Sugar Diagnostic (Accu-Chek Guide Test Strips) strip Start: 07-24-2021 End: 10-28-2021 Blood Sugar Diagnostic (Blood Glucose Test) strip Start: 04-19-2021 End: 04-19-2021 Blood Sugar Diagnostic (Blood Glucose Test) strip Start: 04-19-2021 End: 04-19-2021 Blood Sugar Diagnostic (Blood Glucose Test) strip Start: 04-19-2021 End: 04-22-2021 Blood Sugar Diagnostic (Blood Glucose Test) strip Start: 04-22-2021 End: 10-25-2024 Lancets (Acti-La nce Lancets) 17 gauge misc Start: 07-05-2021 End: 07-08-2021 Lancets (Acti-La nce Lancets) 17 gauge misc Start: 10-28-2021 End: 11-05-2021 Lancets (Acti-La nce Lancets) 17 gauge misc Start: 07-08-2021 End: 10-28-2021 Lancets (Acti-La nce Lancets) 17 gauge misc Start: 11-05-2021 End: 10-25-2024 Functional Status Date Assessment Result Facility 03-24-2025 Functional Status without [facility] Work Phone: 03-24-2025 dependent [facility] Work Phone: Clinical Notes 02-14-2012 to 05-09-2025 Harsha Riggins AuD - 05/09/2025 2:26 PM Yajaira German MD - 05/09/2025 2:20 PM Марина Roth MA - 05/09/2025 1:56 PM Estelle Cruz Mammo Tech - 09/13/2024 9:30 AM EST Note Date & Type Note Facility 05-09-2025 History of Present illness Narrative Images from the original note were not included. [facility] [id number] [address] Name: Karyn Gonsales : 1950 Date: 05/09/25 History & Purpose of Evaluation: Karyn Gonsales was seen today for audiologic assessment at the request of Yajaira Joseph MD. She was accompanied by her Stas Gonsales. Primary concern is possible hearing loss. Ms Gonsales has not noticed difficulty hearing, but her feels she sometimes mishears. Please see below for other pertinent case history information as reported by Ms Gonsales. Otologic Symptoms R L Noise Exposure Y N Medical Y N Hearing Loss [] [] Occupational [] [x] Hypertension [x] [] Tinnitus [] [] Recreational-firearms, with hearing protection [x] [] Diabetes [x] [] Otalgia [] [] [] [x] Hypercholesterolemia [x] [] Otorrhea [] [] Heart Disease [] [x] Aural Fullness [] [] Family History [] [x] Stroke [] [x] Meniere s Disease [] [] Cancer-breast cancer. Chemotherapy/radiation ended twelve years ago [x] [] Y N Sp./Luis E[employer] Skills Ear Surgery R L Vertigo [x] [] Appropriate [x] [] PE Tubes [] [] Dizziness [] [x] In Therapy [] [x] Mastoidectomy [] [] Imbalance [x] [] Social Acoustic Neuroma [] [] Vestibular Rehab [] [x] Depression [] [x] Tympanoplasty [] [] Hearing aids: none Other: Results: Otoscopy: Performed by Dr. Joseph prior to testing. Puretone Air & Bone Conduction Audiometry: Pure tone audiometry suggested hearing within normal limits in the low frequencies through 1000 Hz, sloping to a moderate sensorineural hearing loss in the high frequencies, bilaterally. Speech Audiometry: Speech recognition thresholds were in good agreement with three-frequency puretone averages. Word recognition was excellent (96% in the right ear and 90% in the left ear) when assessed at a normal conversational loudness level using 50-word lists of recorded male voice. Immittance Audiometry: Tympanometry suggested normal ear canal volume, low static compliance, and normal resting pressure (Jerger type As), bilaterally. Ipsilateral acoustic reflexes were absent in the right ear, but present in the left ear with the exception of when a 4000 Hz tone was presented. Impression: Middle ear testing was consistent with reduced tympanic membrane mobility bilaterally. Puretone audiometry was consistent with a moderate high frequency sensorineural hearing loss, bilaterally. Ms Gonsales is a candidate for amplification with hearing aids and she was invited to schedule an appointment for a hearing aid consultation. I also recommended she contact her insurance carrier to verify whether or not she has benefits for hearing aids and, if so, if she is required to receive services through any particular contracted provider to receive the benefits. Recommendations: Medical follow up with Dr. Joseph. Further testing and/or re-evaluation at Dr. Joseph' discretion. Hearing aids are recommended, following otologic clearance at Dr. Joseph' discretion. The above was explained to Ms Gonsales and she expressed understanding. Electronically Signed by: Solange Galindo, [facility] 05/09/25 2:26 PM Audiogram: documented in this encounter [facility] 05-09-2025 Note [facility] [address] [facility] [place] [address] [facility] [id number] Dept: [phone] Yajaira Joseph MD Karyn Gonsales 75 y.o. female Patient presents with a chief complaint of Hearing loss (New PT/) Temp 97.8 degrees F (36.6 degrees C) Ht 5' 2 Wt 70.6 kg (155 lb 11.2 oz) BMI 28.48 kg/m History of Presenting Illness: The patient/caregiver reports a history of complaint with the following features: She presents for hearing evaluation. She reports that her spouse feels that her hearing is reduced, although she does not really notice. She has an occasional mild ache in the right ear that will resolve on its own. She has no jaw popping or clicking. There is no family history of hearing loss or excess noise exposure. Review of systems covering 10 systems is reviewed and pertinent positives and negatives are noted as above. Past Medical History: Diagnosis Date Breast cancer (HCC) Current Medications[1] Allergies[2] Past Surgical History: Procedure Laterality Date BACK SURGERY BREAST SURGERY GASTRIC BYPASS KNEE SURGERY Social History [3] Family History Problem Relation Age of Onset Cancer Mother Cancer Father PHYSICAL EXAM: The patient was examined today 05/09/2025 with findings as follows: CONSTITUTIONAL: General Appearance: well-appearing, nontoxic, alert, no acute distress Communication: normal voicing, hearing intact to spoken voice HEAD/FACE: Head: atraumatic, normocephalic, no lesions Facial Inspection: no lesions, healthy skin Facial Strength: motor strength normal, symmetric strength, symmetric movement EYES: Pupils: PERRLA, extra-ocular movements intact, no nystagmus, sclera white, no redness of eyes, no watering of eyes EARS: Bilateral External Ears: no pits, no tags Right External Ear: normally formed, no lesions, no mastoid tenderness Left External Ear: normally formed, no lesions, no mastoid tenderness Right External Auditory Canal: normal, healthy skin, no obstructing cerumen, no discharge Left External Auditory Canal: normal, healthy skin, no obstructing cerumen, no discharge Right Tympanic Membrane: normal landmarks, translucent Left Tympanic Membrane: normal landmarks, translucent Hearing: intact to spoken voice NECK: Neck: no masses, trachea midline, normal range of motion, no cysts or pits, no tenderness to palpation LYMPH NODES: Cervical: no palpable lymph node enlargement SKIN: General Appearance: no lesions, warm and dry, normal turgor, no bruising PSYCHIATRIC: Mood and affect: normal mood, normal affect Assessment and Plan: I see no ear canal or middle ear disease on exam. Brief ear pain may be treated with expectant management. The patient and/or caregiver is advised on the use of OTC agents such as acetaminophen and ibuprofen and any prescribed pain medication for the relief of pain as well as appropriate non-medical treatments such as massage, application of warm or cold compresses, and rest. The patient and/or caregiver is able to state and understanding of these recommendations and is agreeable to the treatment plan. Audiometric testing is performed today and independently reviewed and interpreted. This shows a sloping sensorineural loss bilaterally with good speech discrimination. Tympanometry shows normal compliance consistent with normally ventilated middle ear spaces. She is medically cleared for hearing aids. The causes of hearing loss are discussed in the context of the patient's history and exam findings. We have discussed that exposure to excess environmental noise can result in worsened symptoms and that hearing protection in high noise environments is recommended. We have discussed that hearing aids can be helpful when hearing loss is disruptive and the features of hearing loss that respond well to amplification. An appointment with the machine printer hose in the office is offered if the patient wishes to explore options in this regard. The patient and/or caregiver is able to state an understanding of these recommendations and is agreeable to the treatment plan. 1. Sensorineural hearing loss, bilateral Ambulatory referral to Audiology 2. Otalgia, right No follow-ups on file. The patient and/or caregiver is to notify the office if no improvement or worsening of symptoms is noted prior to the scheduled follow-up for sooner evaluation. The patient and/or caregiver is able to state an understanding of these recommendations and is agreeable to the treatment plan. --Yajaira Joseph MD on 05/09/2025 at 5:53 PM An electronic signature was used to authenticate this note. [1] Current Outpatient Medications: acetaminophen (TYLENOL) 500 MG tablet, Take 1 (one) tablet (500 mg total) by mouth 3 (three) times a day ., Disp: , Rfl: cyanocobalamin (B-12) 1,000 mcg/mL injection, Inject 1 mL (1,000 mcg total) into the shoulder, thigh, or buttocks See Admin Instruction (more content not included)... [facility] 05-09-2025 History of Present illness Narrative [facility] [address] [facility] [place] [address] [facility] [address] Dept: [phone] MD Karyn Blanchard 75 y.o. female Patient presents with a chief complaint of Hearing loss (New PT/) Temp 97.8 F (36.6 C) Ht 5' 2 Wt 70.6 kg (155 lb 11.2 oz) BMI 28.48 kg/m History of Presenting Illness: The patient/caregiver reports a history of complaint with the following features: She presents for hearing evaluation. She reports that her spouse feels that her hearing is reduced, although she does not really notice. She has an occasional mild ache in the right ear that will resolve on its own. She has no jaw popping or clicking. There is no family history of hearing loss or excess noise exposure. Review of systems covering 10 systems is reviewed and pertinent positives and negatives are noted as above. Past Medical History: Diagnosis Date Breast cancer (HCC) Current Medications[1] Allergies[2] Past Surgical History: Procedure Laterality Date BACK SURGERY BREAST SURGERY GASTRIC BYPASS KNEE SURGERY Social History [3] Family History Problem Relation Age of Onset Cancer Mother Cancer Father PHYSICAL EXAM: The patient was examined today 05/09/2025 with findings as follows: CONSTITUTIONAL: General Appearance: well-appearing, nontoxic, alert, no acute distress Communication: normal voicing, hearing intact to spoken voice HEAD/FACE: Head: atraumatic, normocephalic, no lesions Facial Inspection: no lesions, healthy skin Facial Strength: motor strength normal, symmetric strength, symmetric movement EYES: Pupils: PERRLA, extra-ocular movements intact, no nystagmus, sclera white, no redness of eyes, no watering of eyes EARS: Bilateral External Ears: no pits, no tags Right External Ear: normally formed, no lesions, no mastoid tenderness Left External Ear: normally formed, no lesions, no mastoid tenderness Right External Auditory Canal: normal, healthy skin, no obstructing cerumen, no discharge Left External Auditory Canal: normal, healthy skin, no obstructing cerumen, no discharge Right Tympanic Membrane: normal landmarks, translucent Left Tympanic Membrane: normal landmarks, translucent Hearing: intact to spoken voice NECK: Neck: no masses, trachea midline, normal range of motion, no cysts or pits, no tenderness to palpation LYMPH NODES: Cervical: no palpable lymph node enlargement SKIN: General Appearance: no lesions, warm and dry, normal turgor, no bruising PSYCHIATRIC: Mood and affect: normal mood, normal affect Assessment and Plan: I see no ear canal or middle ear disease on exam. Brief ear pain may be treated with expectant management. The patient and/or caregiver is advised on the use of OTC agents such as acetaminophen and ibuprofen and any prescribed pain medication for the relief of pain as well as appropriate non-medical treatments such as massage, application of warm or cold compresses, and rest. The patient and/or caregiver is able to state and understanding of these recommendations and is agreeable to the treatment plan. Audiometric testing is performed today and independently reviewed and interpreted. This shows a sloping sensorineural loss bilaterally with good speech discrimination. Tympanometry shows normal compliance consistent with normally ventilated middle ear spaces. She is medically cleared for hearing aids. The causes of hearing loss are discussed in the context of the patient's history and exam findings. We have discussed that exposure to excess environmental noise can result in worsened symptoms and that hearing protection in high noise environments is recommended. We have discussed that hearing aids can be helpful when hearing loss is disruptive and the features of hearing loss that respond well to amplification. An appointment with the machine printer hose in the office is offered if the patient wishes to explore options in this regard. The patient and/or caregiver is able to state an understanding of these recommendations and is agreeable to the treatment plan. 1. Sensorineural hearing loss, bilateral Ambulatory referral to Audiology 2. Otalgia, right No follow-ups on file. The patient and/or caregiver is to notify the office if no improvement or worsening of symptoms is noted prior to the scheduled follow-up for sooner evaluation. The patient and/or caregiver is able to state an understanding of these recommendations and is agreeable to the treatment plan. --Yajaira Joseph MD on 05/09/2025 at 5:53 PM An electronic signature was used to authenticate this note. [1] Current Outpatient Medications: acetaminophen (TYLENOL) 500 MG tablet, Take 1 (one) tablet (500 mg total) by mouth 3 (three) times a day ., Disp: , Rfl: cyanocobalamin (B-12) 1,000 mcg/mL injection, Inject 1 mL (1,000 mcg total) into the shoulder, thigh, or buttocks See Admin Instructions ., Disp: , Rfl: ergocalciferol (ERGOCALCIFEROL) 1,250 mcg (50,000 unit) capsule, Take 1 (one) capsule (50,000 Units total) by mouth over 168 hr ., Disp: , Rfl: glimepiride (AMARYL) 2 MG tablet, 1 (one) tablet (2 mg total) daily ., Disp: , Rfl: hydroCHLOROthiazide (MICROZIDE) 12.5 mg capsule, Take 1 (one) capsule (12.5 mg total) by mouth daily ., Disp: , Rfl: metFORMIN (GLUCOPHAGE) 1000 MG tablet, Take 1 (one) tablet (1,000 mg total) by mouth daily with breakfast ., Disp: , Rfl: potassium chloride 10 MEQ CR tablet, Take 1 (one) tablet (10 mEq total) by mouth daily ., Disp: , Rfl: ramipriL (ALTACE) 5 MG capsule, , Disp: , Rfl: rosuvastatin (CRESTOR) 10 MG tablet, , Disp: , Rfl: [2] Allergies Allergen Reactions Prochlorperazine Itching Other reaction(s): Itching Feels like something in crawling all over her Other reaction(s): Itching Feels like something in crawling all over her [3] Social History Socioeconomic History Marital status: Tobacco Use Smoking status: Never Passive exposure: Never Smokeless tobacco: Never Vaping Use Vaping status: Never Used Substance and Sexual Activity Alcohol use: Never Drug use: Never Review of Systems Constitutional: Negative. HENT: Negative. Eyes: Negative. Respiratory: Negative. Cardiovascular: Negative. Gastrointestinal: Negative. Endocrine: Negative. Genitourinary: Negative. Musculoskeletal: Negative. Skin: Negative. Allergic/Immunologic: Negative. Neurological: Negative. Hematological: Negative. Psychiatric/Behavioral: Negative. documented in this encounter [facility] 09-14-2024 Telephone encounter Note SPOKE TO PT SCHEDULED DIRECTED. Sushil Rios [facility] 09-14-2024 Miscellaneous Notes SPOKE TO PT SCHEDULED DIRECTED. Sushil Rios Please inform pt. that her mammogram looks good. Mammogram in one year-OV after. Thank you. Chanda Ocasio APRN.[employer] documented in this encounter [facility] 09-14-2024 Telephone encounter Note Please inform pt. that her mammogram looks good. Mammogram in one year-OV after. Thank you. Chanda Ocasio APRN.CNP [facility] 09-13-2024 History of Present illness Narrative Radiology Service Progress Note PATIENT NAME: Karyn Gonsales DATE OF SERVICE: September 13, 2024 TIME: 9:59 AM PATIENT IDENTITY VERIFICATION COMPLETED USING TWO (2) IDENTIFIERS: Name and Date of confirmed by patient verbally. FALL SCREENING: Has the patient had 2 falls in the last year or 1 fall with injury or currently using an Ambulatory Assistive Device (Walker, Cane, Wheelchair, Crutches, etc.)? Yes, Patient High Risk for Falls What interventions were put in place to prevent falls during this visit? Offered Assistance with Transfers/Clothing, Instructed Patient to Remain Seated (Not on Exam Table) Until Exam, and Increased Observations by Caregivers PATIENT GENDER DATA: Assigned female at . status: : No status: NO. PATIENT RELEVANT IMPLANT DATA REVIEWED: Not Applicable PATIENT PRESENTS WITH AN IMPLANTABLE OR ATTACHED PLATE WASHER: No RADIOLOGY DEPARTMENT: Mammography PERIPHERAL IV DATA: Not applicable SIGNED BY: Lucio Xiao September 13, 2024 9:59 AM documented in this encounter [facility] 09-13-2024 Note HNO ID: [id number] Author: ESTELLE CLEMENS Mammo Tech Service: ? Author Type: Technologist Type: Progress Notes Filed: 09/13/2024 10:00 Note Text: Radiology Service Progress Note PATIENT NAME: Karyn Gonsales DATE OF SERVICE: September 13, 2024 TIME: 9:59 AM PATIENT IDENTITY VERIFICATION COMPLETED USING TWO (2) IDENTIFIERS: Name and Date of confirmed by patient verbally. FALL SCREENING: Has the patient had 2 falls in the last year or 1 fall with injury or currently using an Ambulatory Assistive Device (Walker, Cane, Wheelchair, Crutches, etc.)? Yes, Patient High Risk for Falls What interventions were put in place to prevent falls during this visit? Offered Assistance with Transfers/Clothing, Instructed Patient to Remain Seated (Not on Exam Table) Until Exam, and Increased Observations by Caregivers PATIENT GENDER DATA: Assigned female at . status: : No status: NO. PATIENT RELEVANT IMPLANT DATA REVIEWED: Not Applicable PATIENT PRESENTS WITH AN IMPLANTABLE OR ATTACHED PLATE WASHER: No RADIOLOGY DEPARTMENT: Mammography PERIPHERAL IV DATA: Not applicable SIGNED BY: Estelle Clemens [employer] September 13, 2024 9:59 AM [facility] 09-13-2024 Note HNO ID: [id number] Author: CHANDA OCASIO APRN.[employer] Service: ? Author Type: Nurse Practitioner Type: Progress Notes Filed: 09/15/2024 11:43 Note Text: Chief Complaint Patient presents with: Established Patient HPI: Karyn Gonsales is a 74 year old female who presents here today [...] nodes are negative. ER is 59% , VT is 89% , HER-2/selena by FISH is not amplified. Oncotype DX recurrence score 29 (19% rate of recurrence with tamoxifen alone). Completed TC. Completed radiation 02/10/12. Started arimidex after radiation. Went off of AI for approx. one year. B/l breast recon. in [place]. Recovered well. Pt. was seen by Dr. Adrian for abnormal mamm b/l in January. B/l biopsy done-Neg. Pt. overdue for OV and mammogram. Last seen 12/10/21. Last mamm 03/25/23. Pt. followed by Ortho at [facility]. +back pain. Recent MRI. Scheduled for procedure 10/11/24. Pt. here today with spouse. Appetite:Good. Wt. down 11# over past 2 1/2 years. Energy level:I have none. Denies fever or recent illness. Resp:denies cough or sob Cardiac:denies chest pain/palpitations GI:denies abd pain h/o gastric bypass-n/v, moving bowels regularly :denies dysuria/hematuria Extrem:R leg/low back pain-followed by [facility], denies other pain Endo:denies hot flashes Neuro:denies numbness/tingling Skin:denies rashes/lesions Heme:denies bleeding The ROS is otherwise negative. Past medical history, appointments, medications, allergies reviewed. No changes. EXAM: BP 124/79 Pulse 92 Temp 36.3 ?C (97.4 ?F) (Temporal) Wt 64.9 kg (143 lb 1.3 oz) SpO2 98% BMI 26.00 kg/m? APPEARANCE Well appearing, alert, in no acute distress, well-hydrated, well nourished. HEART RRR with normal S1 and S2, no murmurs LUNG clear to auscultation BREAST FEMALE b/l surgical scars, L radiation changes-outer tenderness, R lower/outer dense tissue stable LYMPH NODES No cervical lymphadenopathy, No supraclavicular lymphadenopathy, and No axillary lymphadenopathy. ABDOMEN bowel sounds normoactive, soft, non-tender EXTREMITIES No edema NEURO Awake, alert and oriented x 3, using wheeled walker, and No involuntary motions. SKIN Skin color, texture, turgor normal, no suspicious rashes or lesions ASSESSMENT/PLAN: 1. Encounter for follow-up surveillance of breast cancer - ICD9: V67.9, V10.3, ICD10: Z08, Z85.3 pT1b (8 mm; moderately diff) N0 MX ER/VT positive; HER2 non amplified by FISH invasive ductal carcinoma the left breast. Oncotype DX recurrence score 29 (19% rate of recurrence with tamoxifen alone). Data from the results suggested about 50% reduction in risk of recurrence with the use of CMF. Tolerated TC very well. - No concerning findings on exam. - Completed 5 years of arimidex-tolerated well. - Tolerated femara well. Completed 10 years of AI therapy. - Reviewed MRI done at [facility] earlier this month. DEBBIE. - Mammogram as scheduled today. - Follow up pending above. - Pt. aware to call office with any questions/concerns. The sensitive examination was discussed with the Patient or Patient's Authorized Senior Ui Designer. As applicable, any other physician, advance practice provider, medical student, or other health professional student that will be observing or involved in the sensitive examination for educational or training purposes was discussed with the Patient or Authorized Senior Ui Designer. The Patient or Authorized Senior Ui Designer has agreed to proceed with the sensitive examination. (Sensitive examination includes inspection and/or palpation of the breasts, pelvis, prostate and anorectal regions) The patient indicates understanding of these issues and agrees with the plan. All documentation from previous visit of 12/10/21-Dr. Schultz/myself was copied and pasted, documentation has been reviewed and edited as necessary for today's visit. Chanda Ocasio APRN.[facility] 09-13-2024 History of Present illness Narrative Chief Complaint Patient presents with: Established Patient HPI: Karyn Gonsales is a 74 year old female who presents here today [...] nodes are negative. ER is 59% , VT is 89% , HER-2/selena by FISH is not amplified. Oncotype DX recurrence score 29 (19% rate of recurrence with tamoxifen alone). Completed TC. Completed radiation 02/10/12. Started arimidex after radiation. Went off of AI for approx. one year. B/[place] breast recon. in [place]. Recovered well. Pt. was seen by Dr. Adrian for abnormal mamm b/l in January. B/l biopsy done-Neg. Pt. overdue for OV and mammogram. Last seen 12/10/21. Last mamm 03/25/23. Pt. followed by Ortho at [facility]. +back pain. Recent MRI. Scheduled for procedure 10/11/24. Pt. here today with spouse. Appetite:Good. Wt. down 11# over past 2 1/2 years. Energy level:I have none. Denies fever or recent illness. Resp:denies cough or sob Cardiac:denies chest pain/palpitations GI:denies abd pain h/o gastric bypass-n/v, moving bowels regularly :denies dysuria/hematuria Extrem:R leg/low back pain-followed by [facility], denies other pain Endo:denies hot flashes Neuro:denies numbness/tingling Skin:denies rashes/lesions Heme:denies bleeding The ROS is otherwise negative. Past medical history, appointments, medications, allergies reviewed. No changes. EXAM: BP 124/79 Pulse 92 Temp 36.3 C (97.4 F) (Temporal) Wt 64.9 kg (143 lb 1.3 oz) SpO2 98% BMI 26.00 kg/m APPEARANCE Well appearing, alert, in no acute distress, well-hydrated, well nourished. HEART RRR with normal S1 and S2, no murmurs LUNG clear to auscultation BREAST FEMALE b/l surgical scars, L radiation changes-outer tenderness, R lower/outer dense tissue stable LYMPH NODES No cervical lymphadenopathy, No supraclavicular lymphadenopathy, and No axillary lymphadenopathy. ABDOMEN bowel sounds normoactive, soft, non-tender EXTREMITIES No edema NEURO Awake, alert and oriented x 3, using wheeled walker, and No involuntary motions. SKIN Skin color, texture, turgor normal, no suspicious rashes or lesions ASSESSMENT/PLAN: 1. Encounter for follow-up surveillance of breast cancer - ICD9: V67.9, V10.3, ICD10: Z08, Z85.3 pT1b (8 mm; moderately diff) N0 MX ER/VT positive; HER2 non amplified by FISH invasive ductal carcinoma the left breast. Oncotype DX recurrence score 29 (19% rate of recurrence with tamoxifen alone). Data from the results suggested about 50% reduction in risk of recurrence with the use of CMF. Tolerated TC very well. - No concerning findings on exam. - Completed 5 years of arimidex-tolerated well. - Tolerated femara well. Completed 10 years of AI therapy. - Reviewed MRI done at [facility] earlier this month. DEBBIE. - Mammogram as scheduled today. - Follow up pending above. - Pt. aware to call office with any questions/concerns. The sensitive examination was discussed with the Patient or Patient's Authorized Senior Ui Designer. As applicable, any other physician, advance practice provider, medical student, or other health professional student that will be observing or involved in the sensitive examination for educational or training purposes was discussed with the Patient or Authorized Senior Ui Designer. The Patient or Authorized Senior Ui Designer has agreed to proceed with the sensitive examination. (Sensitive examination includes inspection and/or palpation of the breasts, pelvis, prostate and anorectal regions) The patient indicates understanding of these issues and agrees with the plan. All documentation from previous visit of 12/10/21-Dr. Schultz/myself was copied and pasted, documentation has been reviewed and edited as necessary for today's visit. Chanda Ocasio APRN.ANH documented in this encounter [facility] 09-12-2024 Telephone encounter Note Called patient and scheduled as directed [facility] 09-12-2024 Miscellaneous Notes Called patient and scheduled as directed Order in. OV after mamm. Chanda Ocasio APRN.ANH Spoke with pt. She is due for mamm and OV with Chanda. She is late for both, but would like before her spinal fusion scheduled 10/11/[address] orders for mamm. Juhi Mota LPN Patient states that she spoke with surgeon on 09/09/24 and is scheduled for procedure on 10/11/24. Patient is wanting to speak with hem/onc clinical caregiver to discuss further details and schedule overdue mammogram. I sent a fax request this morning to [facility] to req MRI. I never requested an MRI from [facility]. Saniya Oviedo LPN [facility] called to report that the patient was not seen at their facility. Please contact patient to discuss where MRI was performed. Requested. Saniya Oviedo LPN Noted. Agree. Please request copy of MRI. Chanda Ocasio APRN.ANH Call placed to pt to discuss leg pain, pt states she has had leg pain for 6 weeks Pain in the front of her leg and into foot. She does note having back surgery a year ago. She walks at the [employer], but one evening 6 weeks ago she started to have pain,without injury. Went to ER, it was very busy and pt left without being seen.. Early in the AM the pain was worse and she called squad. She got set up with a back doctor and had back inj that was not helpful. Started on Gabapentin. Using walker due to pain. Recent MRI, has apt to review tomorrow with back surgeon. She has read the report which states New 7mm cyst L5 -S1 foraminal cyst causing stenosis, spondylosis. No mention of possible metastatic disease on report. Pt states she would like to make an apt with Chanda as she has concerns of bone mets. I advised patient she should keep her apt tomorrow with surgeon and see what the plan of care and diagnosis is first. Assured pt if there is concern of metastatic disease they will advise her to be seen here. Pt states she will call with update after the apt. She has not had a Mammogram since February 2023. Saniya Oviedo LPN documented in this encounter [facility] 09-12-2024 Telephone encounter Note Order in. OV after mamm. Chanda Ocasio APRN.[employer] [facility] 09-12-2024 Telephone encounter Note Spoke with pt. She is due for mamm and OV with Chanda. She is late for both, but would like before her spinal fusion scheduled 10/11/[address] orders for mamm. Juhi Mota LPN [facility] 09-12-2024 Telephone encounter Note Patient states that she spoke with surgeon on 09/09/24 and is scheduled for procedure on 10/11/24. Patient is wanting to speak with hem/onc clinical caregiver to discuss further details and schedule overdue mammogram. [facility] 09-09-2024 Telephone encounter Note Spoke with pt, see phone note 09/08/24. Saniya Oviedo LPN [facility] 09-09-2024 Miscellaneous Notes Spoke with pt, see phone note 09/08/24. Saniya Oviedo LPN Please advise - Severe pain? Okay to schedule from 09/12-09/30 as requested? documented in this encounter [facility] 09-09-2024 Telephone encounter Note I sent a fax request this morning to [facility] to req MRI. I never requested an MRI from [facility]. Saniya Ovideo LPN [facility] 09-09-2024 Telephone encounter Note [facility] called to report that the patient was not seen at their facility. Please contact patient to discuss where MRI was performed. [facility] 09-09-2024 Telephone encounter Note Requested. Saniya Oviedo LPN [facility] 09-09-2024 Telephone encounter Note Noted. Agree. Please request copy of MRI. Chanda Ocasio APRN.[employer] [facility] 09-08-2024 Telephone encounter Note Call placed to pt to discuss leg pain, pt states she has had leg pain for 6 weeks Pain in the front of her leg and into foot. She does note having back surgery a year ago. She walks at the [employer], but one evening 6 weeks ago she started to have pain,without injury. Went to ER, it was very busy and pt left without being seen.. Early in the AM the pain was worse and she called squad. She got set up with a back doctor and had back inj that was not helpful. Started on Gabapentin. Using walker due to pain. Recent MRI, has apt to review tomorrow with back surgeon. She has read the report which states New 7mm cyst L5 -S1 foraminal cyst causing stenosis, spondylosis. No mention of possible metastatic disease on report. Pt states she would like to make an apt with Chanda as she has concerns of bone mets. I advised patient she should keep her apt tomorrow with surgeon and see what the plan of care and diagnosis is first. Assured pt if there is concern of metastatic disease they will advise her to be seen here. Pt states she will call with update after the apt. She has not had a Mammogram since February 2023. Saniya Oviedo LPN [facility] 09-08-2024 Telephone encounter Note Please advise - Severe pain? Okay to schedule from 09/12-09/30 as requested? [facility] Work Phone: 12-13-2023 Note HNO ID: [id number] Author: CHERRIE DONIS APRN.[employer] Service: ? Author Type: Nurse Practitioner Type: Progress Notes Filed: 12/13/2023 08:46 Note Text: Subjective HPI HPI Karyn Gonsales is a 73 year old female who presents today for CC of sinus pressure. This started 1 week ago/worsening now. Has tried otc medication for relief. Symptoms are worsened by nothing. Risk factors hx of sinusitis. nonsmoker. Patient not well known to f, denies renal/hepatic disease. .Patient presents with: Sinus Problem: Sinus drainage, green mucus x 1 week PAST MEDICAL HISTORY Diagnosis Date Diverticulosis [...] LT 07-21-11 ALLERGIES Compazine [Prochlorperazine Edisylate] MEDICATIONS ramipril (ALTACE) 5 mg capsule FEROSUL 325 mg (65 mg iron) tablet Take 1 tablet by mouth once daily. glimepiride (AMARYL) 2 mg tablet 2 mg once daily. potassium chloride (K-TAB) 10 mEq tablet Take 10 mEq by mouth once daily. ergocalciferol 50,000 unit capsule (VITAMIN D2, DRISDOL) Take 50,000 Units by mouth one time a week. metFORMIN (GLUCOPHAGE) 1,000 mg tablet Take 1,000 mg by mouth daily with breakfast. cyanocobalamin (VITAMIN B-12) 1,000 mcg/mL soln Inject 1 mL intramuscularly as directed. every 2 weeks Hydrochlorothiazide 12.5 mg capsule Take 12.5 mg by mouth once daily. amoxicillin-clavulanate potassium (AUGMENTIN) 875-125 mg per tablet Take 1 tablet by mouth two times a day for 7 days. famotidine (PEPCID) 20 mg tablet Take 1 tablet by mouth once daily. (Patient not taking: Reported on 12/13/2023) hydrOXYzine HCl (ATARAX) 25 mg tablet Take 1 tablet by mouth three times daily as needed for anxiety. (Patient not taking: Reported on 12/13/2023) meclizine (ANTIVERT) 12.5 mg tab Take 1-2 tablets by mouth every 6 hours as needed (dizziness). (Patient not taking: Reported on 12/13/2023) letrozole (FEMARA) 2.5 mg tablet Take 1 tablet by mouth once daily (Patient not taking: Reported on 12/13/2023) escitalopram oxalate (LEXAPRO) 5 mg tablet Take 5 mg by mouth once daily. (Patient not taking: Reported on 12/13/2023) rosuvastatin (CRESTOR) 5 mg tablet Take 5 mg by mouth once daily. (Patient not taking: Reported on 12/13/2023) FAMILY HISTORY Problem Relation Age of Onset [...] Constitutional: Negative for fever. HENT: Positive for congestion and ear pain. Negative for ear discharge, nosebleeds, sinus pain and sore throat. Respiratory: Negative for cough, shortness of breath and wheezing. Musculoskeletal: Negative for neck pain. Objective Blood pressure 128/76, pulse 90, temperature 36.1 ?C (96.9 ?F), resp. rate 21, weight 69 kg (152 lb 1.9 oz), SpO2 97%. Physical Exam Constitutional: General: She is not in acute distress. Appearance: She is not toxic-appearing or diaphoretic. HENT: Head: Normocephalic and atraumatic. Right Ear: Hearing, tympanic membrane, ear canal and external ear normal. Left Ear: Hearing, tympanic membrane, ear canal and external ear normal. Nose: Nose normal. Mouth/Throat: Pharynx: Uvula midline. No pharyngeal swelling, oropharyngeal exudate, posterior oropharyngeal erythema or uvula swelling. Eyes: General: Lids are normal. No scleral icterus. Right eye: No discharge. Left eye: No discharge. Conjunctiva/sclera: Conjunctivae normal. Pupils: Pupils are equal, round, and reactive to light. Neck: Trachea: Trachea normal. Cardiovascular (more content not included)... [facility] 12-13-2023 History of Present illness Narrative Subjective HPI HPI Karyn Gonsales is a 73 year old female who presents today for CC of sinus pressure. This started 1 week ago/worsening now. Has tried otc medication for relief. Symptoms are worsened by nothing. Risk factors hx of sinusitis. nonsmoker. Patient not well known to [facility], denies renal/hepatic disease. .Patient presents with: Sinus Problem: Sinus drainage, green mucus x 1 week PAST MEDICAL HISTORY Diagnosis Date Diverticulosis [...] LT 07-21-11 ALLERGIES Compazine [Prochlorperazine Edisylate] MEDICATIONS ramipril (ALTACE) 5 mg capsule FEROSUL 325 mg (65 mg iron) tablet Take 1 tablet by mouth once daily. glimepiride (AMARYL) 2 mg tablet 2 mg once daily. potassium chloride (K-TAB) 10 mEq tablet Take 10 mEq by mouth once daily. ergocalciferol 50,000 unit capsule (VITAMIN D2, DRISDOL) Take 50,000 Units by mouth one time a week. metFORMIN (GLUCOPHAGE) 1,000 mg tablet Take 1,000 mg by mouth daily with breakfast. cyanocobalamin (VITAMIN B-12) 1,000 mcg/mL soln Inject 1 mL intramuscularly as directed. every 2 weeks Hydrochlorothiazide 12.5 mg capsule Take 12.5 mg by mouth once daily. amoxicillin-clavulanate potassium (AUGMENTIN) 875-125 mg per tablet Take 1 tablet by mouth two times a day for 7 days. famotidine (PEPCID) 20 mg tablet Take 1 tablet by mouth once daily. (Patient not taking: Reported on 12/13/2023) hydrOXYzine HCl (ATARAX) 25 mg tablet Take 1 tablet by mouth three times daily as needed for anxiety. (Patient not taking: Reported on 12/13/2023) meclizine (ANTIVERT) 12.5 mg tab Take 1-2 tablets by mouth every 6 hours as needed (dizziness). (Patient not taking: Reported on 12/13/2023) letrozole (FEMARA) 2.5 mg tablet Take 1 tablet by mouth once daily (Patient not taking: Reported on 12/13/2023) escitalopram oxalate (LEXAPRO) 5 mg tablet Take 5 mg by mouth once daily. (Patient not taking: Reported on 12/13/2023) rosuvastatin (CRESTOR) 5 mg tablet Take 5 mg by mouth once daily. (Patient not taking: Reported on 12/13/2023) FAMILY HISTORY Problem Relation Age of Onset [...] Constitutional: Negative for fever. HENT: Positive for congestion and ear pain. Negative for ear discharge, nosebleeds, sinus pain and sore throat. Respiratory: Negative for cough, shortness of breath and wheezing. Musculoskeletal: Negative for neck pain. Objective Blood pressure 128/76, pulse 90, temperature 36.1 C (96.9 F), resp. rate 21, weight 69 kg (152 lb 1.9 oz), SpO2 97%. Physical Exam Constitutional: General: She is not in acute distress. Appearance: She is not toxic-appearing or diaphoretic. HENT: Head: Normocephalic and atraumatic. Right Ear: Hearing, tympanic membrane, ear canal and external ear normal. Left Ear: Hearing, tympanic membrane, ear canal and external ear normal. Nose: Nose normal. Mouth/Throat: Pharynx: Uvula midline. No pharyngeal swelling, oropharyngeal exudate, posterior oropharyngeal erythema or uvula swelling. Eyes: General: Lids are normal. No scleral icterus. Right eye: No discharge. Left eye: No discharge. Conjunctiva/sclera: Conjunctivae normal. Pupils: Pupils are equal, round, and reactive to light. Neck: Trachea: Trachea normal. Cardiovascular: Rate and Rhythm: Normal rate and regular rhythm. Heart sounds: Normal heart sounds. Pulmonary: Effort: Pulmonary effort is normal. Breath sounds: Normal breath sounds. Musculoskeletal: Cervical back: Normal range of motion and neck supple. Lymphadenopathy: Cervical: No cervical adenopathy. Right cervical: No superficial cervical adenopathy. Left cervical: No superficial cervical adenopathy. Skin: Findings: No rash. Neurological: Mental Status: She is alert and oriented to person, place, and time. ASSESSMENT/PLAN: 1. Bacterial sinusitis - ICD9: 473.9, 041.9, ICD10: J32.9, B96.89 - Will begin treatment with as per antibiotic as written, see orders - Supportive care with plenty of fluids, rest, and analgesia prn. - Follow up in 3-5 days if symptoms persist or worsen. - AMOXICILLIN 875 MG-POTASSIUM CLAVULANATE 125 MG TABLET Cherrie Donis APRN.CNP documented in this encounter [facility] 03-25-2023 History of Present illness Narrative Radiology Service Progress Note PATIENT NAME: Karyn Gonsales DATE OF SERVICE: March 25, 2023 [...] 2023 12:55 PM documented in this encounter [facility] 03-05-2023 History of Present illness Narrative This note was created using [employer]. Subjective Karyn Gonsales is a 73 year old female. [...] history is provided by the patient. No insurance underwriter sales was used. Rash This is a new [...] or derm if symptoms persist or worsen. mAy Keita APRN.[employer] documented in this encounter [facility] 03-02-2023 History of Present illness Narrative Images from the original note were not included. Subjective HPI HPI Karyn Gonsales is a 73 year old female [...] BREAST W/DEVICE 1ST LESION ULTRASOUND GUID Right 12/8/16 U/S core bx right inframammary x 2 [...] - TRIAMCINOLONE ACETONIDE 0.1 % TOPICAL CREAM Cherrie Donis APRN.[employer] documented in this encounter [facility] 02-25-2022 History of Present illness Narrative Subjective HPI HPI Karyn Gonsales is a 72 year old female [...] MG TABLET Agrees to plan Declines avs Cherrie Donis APRN.NAH documented in this encounter [facility] 01-15-2022 Miscellaneous Notes Submitted recall letter for 1 YR OV*. Radha Wall Pt. Notified of results of mamm, f/u in 1 year. Pt. Voiced understanding. Juhi Elliott LPN Please inform pt. that her b/l dx mammogram looked good. OV in one year. Thank you. Chanda Ocasio APRN.[employer] documented in this encounter [facility] 01-15-2022 History of Present illness Narrative Radiology Service Progress Note PATIENT NAME: Karyn Gonsales DATE OF SERVICE: January 15, 2022 [...] PERIPHERAL IV DATA: Not applicable SIGNED BY: Yessy BenzShopow January 15, 2022 11:33 AM documented in this encounter [facility] 12-31-2021 Miscellaneous Notes Patient notified of results [...] Mejias PA-C 12/30/2021 documented in this encounter [facility] 12-30-2021 History of Present illness Narrative 12/30/2021 Patient presents with: Dizziness: x2 days, upset stomach SUBJECTIVE: This is a 71 year old that is here today for Complaint(s) of dizziness/vertigo x 2 days. Started on Thursday, better yesterday, and then noticed again this morning and noticed when she turned her head in bed this morning. Describes the whole room spun. + nausea, no vomiting. Slight HERNANDEZ per [...] of breast (female), unspecified site 2011 LEFT ALLERGIES Compazine [Prochlorperazine Edisylate] MEDICATIONS Current [...] Normal gait and No involuntary motions. + [place] to the right. Improved slightly to [...] Mejias PA-C 12/30/2021 documented in this encounter [facility] 12-10-2021 History of Present illness Narrative Chief Complaint Patient presents with: Established Patient HPI: Karyn Gonsales is a 71 year old female [...] nodes are negative. ER is 59% , VT is 89% , HER-2/selena by FISH is [...] me to ask you to order it. Appetite:Good. I've been watching. I need to get my HgbA1c down. Energy level:Good. Denies fever or recent illness. Resp:denies cough [...] C (96.3 F) Ht 158 cm (5' 2.21) Wt 69.9 kg (154 lb) SpO2 100% [...] pT1b (8 mm; moderately diff) N0 MX ER/VT positive; HER2 non amplified by FISH invasive [...] as necessary for today's visit. Chanda Ocasio APRN.ANH documented in this encounter [facility] 02-14-2012 Evaluation note Diagnosis Onset Date Resolution Cellulitis, abdominal wall acute February 13, 2012 10:00pm Preoperative evaluation to rule out surgical contraindication acute August 29, 2024 8:55am HTN (hypertension) chronic Dece er 2023 8:55am Hyperlipidemia chronic August 022023 8:55am Lumbar radiculopathy chronic Dece mber 2023 8:55am Type 2 diabetes mellitus chronic August 29, 2024 8:55am Hyperlipidemia chronic December 05, 2024 8:39am Hypertension chronic December 05, 025 8:39am Lumbar radiculopathy chronic Apri l 2024 8:39am Type 2 diabetes mellitus chronic December 05, 2024 8:39am [facility] Work Phone: [phone]) 889-960506-16-2012 Evaluation note* Diagnosis Onset Date Resolution Status Admit Date Cellulitis, abdominal wall acute February 13, 2012 10:00pm Hyperlipidemia chronic December 05, 2024 8:39am Hypertension chronic December 05, 2 025 8:39am Lumbar radiculopathy chronic Apri l 2024 8:39am Type 2 diabetes mellitus chronic December 05, 2024 8:39am [facility] Work Phone: [phone]) 983-819006-16-2012 Evaluation note* Diagnosis Onset Date Resolution Status Admit Date Cellulitis, abdominal wall acute February 13, 2012 10:00pm Hyperlipidemia chronic December 05, 2024 8:39am Hypertension chronic December 05, 2 025 8:39am Lumbar radiculopathy chronic Apri 2024 8:39am Type 2 diabetes mellitus chronic December 05, 2024 8:39am Anemia chronic March 13 8:11am HTN (hypertension) chronic February 282024 8:11am Hyperlipidemia chronic March 13, 2025 8:11am Type 2 diabetes mellitus chronic March 13, 2025 8:11am [facility] Work Phone: Discharge summary Author Carlton Gutierrez [facility] July 27, 2023 4:36am Note Date/Time July 27, 2023 4:09am [facility] Medical Records Department [address] [place] [address] Emergency Department Summary 07/27/23 MR#: [id number] Acct: [id number] Name: KARYN GONSALES Rep #:[id number] 2 : 1950 73 From: [place] Gutierrez MD PCP: Dr. Miranda Hester MD Status:D EP ER Location: ED HPI History of Present Illness Chief Complaint: Lower Extremity Injury Informant: patient Narrative Narrative: 2 weeks ago patient had microdiscectomy lumbar spine by Dr. [facility]. She had sciatica down her left lower extremity prior to the surgery, and ever since her left lower extremity has been feeling much better. She has had episodes of dry heaving from time to time but she did after her last surgeryin March as well. For the past 2 days she has had gradual onset of pain in herright hamstring. Sometimes it radiates down to the distal lower leg. She denies any weakness or numbness in the lower extremities. She denies having anyback pain, and is actually due to follow-up with spine later today and approximately 11 hours to have reevaluation and eris removed. She states theincision has been doing well without any drainage. She did talk to her surgeon 2 days ago when this started about the pain. Patient states she is a nurse and her main reason for coming here tonight is to make sure this was not a blood clot, she did not want to wait 11 more hours without taking the appropriate treatment if it was. She denies any chest pain, shortness of breath, palpitations, lightheadedness, near-syncope, or syncope. No history of DVT or PE. She took OxyContin 3 to 4 hours ago and it did not help, she took 2 Tylenolprior to coming here but vomited them up. [facility] Medical History Abnormal mammogram of right breast Anemia Breast cancer Cervical radiculopathy Dermatitis Diabetes Flu vaccine need High cholesterol History of revision of total replacement of right knee joint HTN (hypertension) Left arm pain Left breast mass Osteoarthritis Postsurgical malabsorption Preoperative evaluation to rule out surgical contraindication Rash Varicose veins of left leg with edema 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 Home Medications compr.stocking,thigh,short,med #4 ea 02/15/21 [Rx Last Taken Unknown] blood sugar diagnostic (Blood Glucose Test strips) #100 ea 04/22/21 [Rx Last Taken Unknown] blood-glucose meter (Blood Glucose Monitoring kit) #1 ea 04/22/21 [Rx Last Taken Unknown] blood sugar diagnostic (Accu-Chek Guide test strips) #200 ea 10/28/21 [Rx Last Taken Unknown] lancets 17 gauge (Acti-Sid Lancets) #300 ea 11/05/21 [Rx Last Taken Unknown] ferrous sulfate 325 mg (65 mg iron) tablet 325 mg PO DAILY #90 tabs 10/24/22 [Rx Last Taken Unknown] ramipril 5 mg capsule See Rx Instructions .Route .COMPLEX #180 CAPSULES 03/06/23[Rx Last Taken Unknown] hydrochlorothiazide 12.5 mg capsule See Rx Instructions .Route .COMPLEX #90 caps03/16/23 [Rx Last Taken Unknown] metformin 1,000 mg tablet See Rx Instructions .Route .COMPLEX #180 tabs 03/16/23[Rx Last Taken Unknown] potassium chloride 10 mEq tablet,extended release See Rx Instructions .Route .COMPLEX #90 tabs 03/16/23 [Rx Last Taken Unknown] cholecalciferol (vitamin D3) 1,250 mcg (50,000 unit) capsule See Rx Instructions.Route .COMPLEX #12 caps 04/09/23 [Rx Last Taken Unknown] cyanocobalamin (vitamin B-12) 1,000 mcg/mL injection solution See Rx Instructions .Route .COMPLEX #10 mL 07/10/23 [Rx Last Taken Unknown] glimepiride 2 mg tablet 2 mg PO QAM #90 tabs 07/10/23 [Rx Last Taken Unknown] Allergy/AdvReac Type Severity Reaction Status Date / Time prochlorperazine Allergy Other Verified 07/27/23 03:50 [From Compazine] NSAIDS (Non-Steroidal AdvReac Upset Verified 07/27/23 04:01 Anti-Inflamma Stomach Family History Mother Cancer Pancreatic cancer Diabetes Depression Sister Cancer Lung cancer Father Colon cancer Heart disease Myocardial infarction Hypertension CVA (cerebral vascular accident) Sister Cancer Kidney cancer Thyroid disorder Other Anxiety Surgical History (Updated 06/29/23 @ 08:10 by Kamilah Levi) H/O tubal ligation History of breast reconstruction History of cholecystectomy History of gastric bypass History of left cataract surgery History of partial mastectomy of left breast History of revision of total knee arthroplasty history of stomach surgery History Panniculectomy Social History Smoking Status: Never smoker second hand exposure: No alcohol intake: never what type of physical activity do you participate in: none ROS ROS ED Constitutional Constitutional ED: Denies chills or fever(s) Musculoskeletal Musculoskeletal: Reports extremity pain; Denies back pain or neck pain Integumentary Denies Abrasions, rash or wounds Neurologic Neurologic: Denies paresthesias or weakness EXAM Physical Exam Const Vital Signs: 07/27/23 03:40 Temperature 95.9 F L Temperature Source Temporal Pulse Rate 120 H Respiratory Rate 15 Blood Pressure 174/89 H Blood Pressure Mean 117 Pulse Ox 100 Oxygen Delivery Method Room Air Positive well nourished and well developed General Appearance ED: well developed and NAD Neck full ROM and supple GI normal to inspection, nondistended, normoactive bowel sounds and non-tender GI Narrative: No pulsatile mass Back/Spine normal ROM and normal to inspection Back/Spine Narrative: Well-healing midline lower back incision with eris intact, no evidence of dehiscence, discharge, abscess, cellulitis and no tenderness. No other back tenderness including sciatic notch and SI joint areas. Extremity Extremity Narrative: Full range of motion throughout both lower extremities. With performing ipsilateral right lower extremity straight leg raise, she does have increased pain in the proximal posterior thigh without radicular symptoms being reproduced. On further palpation, she is tender right at palpable proximal hamstring tendon, it seems just distal to the ischial tuberosity. There is no palpable cord other than the tendon, no distal edema, all compartments are soft and nondistended, she has faint pulses but they are palpable with brisk 2-secondcap refill both sides. Neuro oriented x3, no focal motor deficits and no sensory deficits noted Neuro Narrative: 2+ right and left Achilles reflex, 2+ left patellar, 1+ right but patient has total knee arthroplasty here. Sensorium / Orientation: alert Psych mental status grossly normal and thought process normal Skin no wounds Rashes: no rashes MDM MDM MDM Narrative Medical decision making narrative: Patient presents at 4 AM when duplex venous ultrasound is not available but I reassured her I do not think she needs workup for DVT I do not think that is what this is. Furthermore obtaining a D-dimer will highly likely be elevated abnormally due to her recent surgery, and I do not think it is needed. She is comfortable with that, I offered him analgesics, she is amenable to that as wellas some Phenergan orally, and if feeling better we will discharge her home to follow-up with spine as scheduled later today. After discussing with the patient she is in agreement that this is likely 1 of 2 different things: Nerve irritation as a result of her recent surgery, or musculoskeletal hamstring discomfort as a result of her restricted motions that she is trying to compensate for recently. After the morphine, she is feeling much, much better and ambulating without any difficulty. She is comfortable with being discharged and following up as scheduled. Discharge Plan Triage Chief Complaint: Lower Extremity Injury ED Provider: Carlton Gutierrez Dx/Rx/DC Orders Clinical Impression: Musculoskeletal pain of right thigh Instructions: ED Tendonitis Prescriptions: No Action (DME) compr.stocking,thigh,short,med Misc See Rx Instructions .ROUTE .MEDSUPPLY Qty: 4 0RF Rx Instructions: As directed (DME) Accu-Chek Guide test strips Strip See Rx Instructions .ROUTE .MEDSUPPLY Qty: 200 3RF Rx Instructions: check blood glucose 3x daily as directed (DME) blood-glucose meter [Blood Glucose Monitoring] Kit See Rx Instructions .ROUTE .MEDSUPPLY Qty: 1 0RF Rx Instructions: Check daily (DME) Blood Glucose Test Strip See Rx Instructions .ROUTE .MEDSUPPLY Qty: 100 3RF Rx Instructions: Check daily (DME) Acti-Sid Lancets 17 gauge misc See Rx Instructions .ROUTE .MEDSUPPLY Qty: 300 2RF Rx Instructions: Check 3x daily ferrous sulfate 325 mg (65 mg iron) tablet 325 mg PO DAILY Qty: 90 3RF ramipril 5 mg capsule See Rx Instructions .ROUTE .COMPLEX Qty: 180 1RF Dose Instruction: Take 1 capsule by mouth twice daily Rx Instructions: Take 1 capsule by mouth twice daily metformin 1,000 mg tablet See Rx Instructions .ROUTE .COMPLEX Qty: 180 3RF Dose Instruction: Take 1 tablet by mouth twice daily Rx Instructions: Take 1 tablet by mouth twice daily potassium chloride 10 mEq tablet extended release See Rx Instructions .ROUTE .COMPLEX Qty: 90 3RF Dose Instruction: Take 1 tablet by mouth once daily Rx Instructions: Take 1 tablet by mouth once daily hydrochlorothiazide 12.5 mg capsule See Rx Instructions .ROUTE .COMPLEX Qty: 90 3RF Dose Instruction: TAKE 1 CAPSULE BY MOUTH ONCE DAILY FOR BLOOD PRESSURE Rx Instructions: TAKE 1 CAPSULE BY MOUTH ONCE DAILY FOR BLOOD PRESSURE cholecalciferol (vitamin D3) 1,250 mcg (50,000 unit) capsule See Rx Instructions .ROUTE .COMPLEX Qty: 12 3RF Dose Instruction: Take 1 capsule by mouth once a week Rx Instructions: Take 1 capsule by mouth once a week cyanocobalamin (vitamin B-12) 1,000 mcg/mL solution See Rx Instructions .ROUTE .COMPLEX Qty: 10 6RF Dose Instruction: INJECT 1 ML (CC) INTRAMUSCULARLY EVERY TWO WEEKS FOR MALABSORPTION Rx Instructions: INJECT 1 ML (CC) INTRAMUSCULARLY EVERY TWO WEEKS FOR MALABSORPTION glimepiride 2 mg tablet 2 mg PO QAM Qty: 90 2RF Rx Instructions: administer with breakfast Primary Care Provider: Miranda Hester Referrals: Miranda Hester MD [Primary Care Provider] - Darin Covington MD [Non-Staff] - Keep Analy appointment Disposition Disposition: Home, Self Care What to do if you have Problems For any increased pain, shortness of breath, bleeding, nausea or vomiting, chestpain, or any unexpected problems, contact your Primary Care Provider. Call [facility] ([phone]) or report to the closest Emergency Room. Call 911 if necessary. 07/27/23 0436 <Electronically signed by Carlton Gutierrez MD> Cosigner Signature (if applicable): CC: Dr. Miranda Hester MD; Dr. Darin Covington MD ~ Signed [facility] Work Phone: Evaluation note* Diagnosis Invasive ductal carcinoma of left breast in female (HCC)- Primary Breast pain, left [facility]astodynia [facility] Vertigo- Primary Dizziness and giddiness [facility] Diagnosis Invasive ductal carcinoma of left breast in female (HCC) Breast pain, left Mastodynia [facility] Diagnosis Onset Date Resolution Status Cellulitis, abdominal wall a cute Breast cancer chronic Hypertension chronic Left shoulder pain chronic Type 2 diabetes mellitus chr onic Postsurgical malabsorption a cute Hypertension chronic Left shoulder pain chronic Type 2 diabetes mellitus [facility] Work Phone: Evaluation note* Diagnosis Bacterial sinusitis- Primary Unspecified sinusitis (chronic) [facility] Diagnosis Onset Date Resolution Status Cellulitis, abdominal wall a cute Anemia chronic HTN (hypertension) chronic Osteoarthritis chronic Type 2 diabetes mellitus [facility] onic 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 [facility] Work Phone: Evaluation note* Diagnosis Rhus dermatitis- Primary Contact dermatitis and other eczema due to plants (except food) [facility] Dermatitis- Primary Contact dermatitis and other eczema, due to unspecified cause [facility] Diagnosis Onset Date Resolution Status Cellulitis, abdominal wall a cute Postsurgical malabsorption a cute Bariatric surgery status chr onic Postsurgical malabsorption a cute Bariatric surgery status chr [facility] Work Phone: Evaluation note* Diagnosis Onset Date Resolution Status Cellulitis, abdominal wall a cute Postsurgical malabsorption a cute Bariatric surgery status chr onic Dermatitis acute Rash acute Type 2 diabetes mellitus chr onic Preoperative evaluation to r ule out surgical contraindication acute HTN (hypertension) chronic Type 2 diabetes mellitus [facility] Work Phone: Evaluation note* Diagnosis Onset Date Resolution Status Cellulitis, abdominal wall a cute Dermatitis acute Rash acute Type 2 diabetes mellitus chr [facility] Preoperative evaluation to r ule out surgical contraindication acute HTN (hypertension) chronic Type 2 diabetes mellitus [facility] Preoperative evaluation to r ule out surgical contraindication acute HTN (hypertension) chronic Type 2 diabetes mellitus [facility] Work Phone: Evaluation note* Diagnosis Encounter for screening mammogram for malignant neoplasm of breast Other screening mammogram [facility] Diagnosis Onset Date Resolution Status Cellulitis, abdominal wall a cute Preoperative evaluation to r ule out surgical contraindication acute HTN (hypertension) chronic Type 2 diabetes mellitus [facility] Work Phone: Evaluation note* Diagnosis Onset Date Resolution Status Cellulitis, abdominal wall a cute Preoperative evaluation to r ule out surgical contraindication acute HTN (hypertension) chronic Type 2 diabetes mellitus [facility] care maintenance acut e History of back surgery acut e HTN (hypertension) chronic Osteopenia chronic Type 2 diabetes mellitus [facility] Work Phone: Evaluation note* Diagnosis Onset Date Resolution Status Cellulitis, abdominal wall a cute [facility] maintenance acut e History of back surgery acut e HTN (hypertension) chronic Osteopenia chronic Type 2 diabetes mellitus [facility] Work Phone: Evaluation note* Diagnosis Bacterial sinusitis- Primary Unspecified sinusitis (chronic) [facility] Diagnosis Invasive ductal carcinoma of left breast in female (HCC)- Primary Encounter for screening mammogram for high-risk patient [facility]* Diagnosis Invasive ductal carcinoma of left breast in female (HCC) Encounter for screening mammogram for high-risk patient [facility] Diagnosis Invasive ductal carcinoma of left breast in female (HCC)- Primary Encounter for screening mammogram for high-risk patient [facility]* Diagnosis Encounter for follow-up surveillance of breast cancer- Primary Unspecified follow-up examination [facility]* Diagnosis Sensorineural hearing loss, bilateral- Primary Otalgia, right [facility] Diagnosis Sensorineural hearing loss, bilateral- Primary [facility] Diagnostic Procedure Only (Routine) - Authorized Specialty Diagnoses / Procedures Referred By Contac t Referred To Contact [facility] Diagnoses Invasive ductal carcinoma of left breast in female (HCC) Breast pain, left Procedures US BREAST LTD LT US BREAST UNI REAL TIME WITH IMAGE LIMITED Chanda Ocasio APRN.[employer] [address] [place] [address] [facility] [address] [place] [address] Referral ID Status Reason Start Date Expiration Date Visits Requested Visits Authorized [id number] Authorized Auto-Generat ed Referral 12/10/2021 01/09/2023 1 1 * Diagnostic Procedure Only (Routine) - Authorized Specialty Diagnoses / Procedures Referred By Contac t Referred To Contact [facility] Diagnoses Invasive ductal carcinoma of left breast in female (HCC) Breast pain, left Procedures SPENCER DIAGNOSTIC BILAT DIAGNOSTIC MAMMOGRAPHY COMPUTER-AIDED DETCJ BI Chanda Ocasio APRN.[employer] [address] [place] [address] [facility] [address] [place] [address] Referral ID Status Reason Start Date Expiration Date Visits Requested Visits Authorized [id number] Authorized Auto-Generat ed Referral 12/10/2021 01/09/2023 1 1 [facility] for referral (narrative)* Diagnostic Procedure Only (Routine) - Closed Specialty Diagnoses / Procedures Referred By Contac t Referred To Contact [facility] Diagnoses Invasive ductal carcinoma of left breast in female (HCC) Breast pain, left Procedures US BREAST LTD LT US BREAST UNI REAL TIME WITH IMAGE LIMITED Chanda Ocasio APRN.[employer] [address] [place] [address] [facility] [address] [place] [address] Referral ID Status Reason Start Date Expiration Date V isits Requested Visits Authorized [id number] Closed Auto-Generate d Referral 12/10/2021 01/09/2023 1 1 [facility] for referral (narrative)* Diagnostic Procedure Only (Routine) - Closed Specialty Diagnoses / Procedures Referred By Alberto mario Referred To Contact [facility] Diagnoses Encounter for screening mammogram for malignant neoplasm of breast Procedures SPENCER SCREENING W SHANEL SCREENING DIGITAL BREAST TOMOSYNTHESIS BI SCREENING MAMMOGRAPHY BI 2-VIEW BREAST INC CAD Cabrera Schultz DO [address] [place] [address] [facility] [address] [place] [address] Referral ID Status Reason Start Date Expiration Date V isits Requested Visits Authorized [id number] Closed Auto-Generate d Referral 03/24/2023 04/21/2024 1 1 [facility] for referral (narrative)* Diagnostic Procedure Only (Routine) - Authorized Specialty Diagnoses / Procedures Referred By Alberto mario Referred To Contact [facility] Diagnoses Invasive ductal carcinoma of left breast in female (HCC) Encounter for screening mammogram for high-risk patient Procedures SPENCER SCREENING W SHANEL SCREENING DIGITAL BREAST TOMOSYNTHESIS BI SCREENING MAMMOGRAPHY BI 2-VIEW BREAST INC CAD Chanda Ocasio APRN.CNP [address] [place] [address] [facility] [address] [place] [address] Referral ID Status Reason Start Date Expiration Date Visits Requested Visits Authorized [id number] Authorized Auto-Generat ed Referral 09/12/2024 10/12/2025 1 1 [facility] for referral (narrative)* Diagnostic Procedure Only (Routine) - Authorized Specialty Diagnoses / Procedures Referred By Alberto t Referred To Contact [facility] Diagnoses Invasive ductal carcinoma of left breast in female (HCC) Encounter for screening mammogram for high-risk patient Procedures SPENCER SCREENING W SHANEL SCREENING DIGITAL BREAST TOMOSYNTHESIS BI SCREENING MAMMOGRAPHY BI 2-VIEW BREAST INC CAD Chanda Ocasio APRN.[employer] [address] [place] [address] [facility] [address] [place] [address] Referral ID Status Reason Start Date Expiration Date Visits Requested Visits Authorized [id number] Authorized Auto-Generat ed Referral 09/14/2025 10/14/2025 1 1 [facility] for referral (narrative)No reason for referral information [facility] Work [facility]: Reason for visit Narrative* Diagnostic Procedure Only (Routine) - Closed Specialty Diagnoses / Procedures Referred By Alberto mario Referred To Contact [facility] Diagnoses Encounter for screening mammogram for malignant neoplasm of breast Procedures SPENCER SCREENING W SHANEL SCREENING DIGITAL BREAST TOMOSYNTHESIS BI SCREENING MAMMOGRAPHY BI 2-VIEW BREAST INC CAD Cabrera Schultz, [address] [place] [address] [facility] [address] [place] [address] Referral ID Status Reason Start Date Expiration Date V isits Requested Visits Authorized [id number] Closed Auto-Generate d Referral 03/24/2023 04/21/2024 1 1 [facility] for visit Narrative* Diagnostic Procedure Only (Routine) - Closed Specialty Diagnoses / Procedures Referred By Alberto mario Referred To Contact [facility] Diagnoses Invasive ductal carcinoma of left breast in female (HCC) Encounter for screening mammogram for high-risk patient Procedures SPENCER SCREENING W SHANEL SCREENING DIGITAL BREAST TOMOSYNTHESIS BI SCREENING MAMMOGRAPHY BI 2-VIEW BREAST INC Chanda Menon APRN.[employer] [address] [place] [address] [facility] [address] [place] [address] Referral ID Status Reason Start Date Expiration Date V isits Requested Visits Authorized [id number] Closed Auto-Generate d Referral 09/12/2024 10/12/2025 1 1 [facility] Reason for Referral Specialty Diagnoses / Procedures Referred By Alberto mario Referred To Contact Ent - Otolaryngology Diagnoses Vertigo Procedures CONSULT TO ENT OFFICE/OUTPATIENT [facility] MDM 60-74 MINUTES Josselin Mejias PA-C [address] [place] [address] Referral ID Status Reason Start Date Expiration Date Visits Requested Visits Authorized [id number] Authorized PCP Requested Referral 12/30/2021 12/30/2022 1 1 Chief Complaint and Reason for Visit Chief Complaint Admit Date 3 M FU December 05, 2024 8:39 am 3 m fu March 13, 2025 8:11 am Reason for Visit Admit Date Cellulitis, abdominal wall February 12 10:00pm Hyperlipidemia December 05, 2024 8:39 am Hypertension December 05, 2024 8:39 am Lumbar radiculopathy December 05, 2024 8:3 9am Type 2 diabetes mellitus December 05, 2024 8:39am Chief Complaint LT SHOULDER ADHESIVE CAPSULITIS 2 M FU ADHISIVE CAPULITIS OF LEFT SHOULDER 3 M FU Reason for Visit Cellulitis, abdomina l wall Breast cancer Hypertension Left shoulder pain Type 2 diabetes mellitus Postsurgical malabsorption Hypertension Left shoulder pain Type 2 diabetes mellitus Chief Complaint FOLLOW UP Reason for Visit Cellulitis, abdomina l wall Anemia HTN (hypertension) Osteoarthritis Type 2 diabetes mellitus 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 Chief Complaint b12 b12 b12 B12 B12 B12 Lumbago with sciatica, unspecified side Reason for Visit Cellulitis, abdomina l wall Postsurgical malabsorption Bariatric surgery status Postsurgical malabsorption Bariatric surgery status Chief Complaint b12 B12 B12 B12 Lumbago with sciatica, unspecified side RASH EVERYWHERE, FINISHED PREDNISONE 3 M FU Reason for Visit Cellulitis, abdomina l wall Postsurgical malabsorption Bariatric surgery status Dermatitis Rash Type 2 diabetes mellitus Preoperative evaluation to rule out surgical contraindication HTN (hypertension) Type 2 diabetes mellitus Chief Complaint Lumbago with sciatic a, unspecified side RASH EVERYWHERE, FINISHED PREDNISONE 3 M FU 3 M FU Reason for Visit Cellulitis, abdomina l wall Dermatitis Rash Type 2 diabetes mellitus Preoperative evaluation to rule out surgical contraindication HTN (hypertension) Type 2 diabetes mellitus Preoperative evaluation to rule out surgical contraindication HTN (hypertension) Type 2 diabetes mellitus Chief Complaint 3 M FU RIGHT LEG PAIN Reason for Visit Cellulitis, abdomina l wall Preoperative evaluation to rule out surgical contraindication HTN (hypertension) Type 2 diabetes mellitus Chief Complaint 3 M FU RIGHT LEG PAIN 3 m fu Reason for Visit Cellulitis, abdomina l wall Preoperative evaluation to rule out surgical contraindication HTN (hypertension) Type 2 diabetes mellitus Health care maintenance History of back surgery HTN (hypertension) Osteopenia Type 2 diabetes mellitus Chief Complaint 3 m fu POST KATELYN Reason for Visit Cellulitis, abdomina l wall Health care maintenance History of back surgery HTN (hypertension) Osteopenia Type 2 diabetes mellitus Chief Complaint Admit Date 3 M FU August 29, 2024 8:55am 3 M FU December 05, 2024 8:39 am Reason for Visit Admit Date Cellulitis, abdominal wall February 12 10:00pm Preoperative evaluation to r ule out surgical contraindication August 29, 2024 8:55am HTN (hypertension) August 29, 2024 8:55am Hyperlipidemia August 29, 2024 8:55am Lumbar radiculopathy August 29, 2024 8:55am Type 2 diabetes mellitus August 29, 2024 8:55am Hyperlipidemia December 05, 2024 8:39 am Hypertension December 05, 2024 8:39 am Lumbar radiculopathy December 05, 2024 8:3 9am Type 2 diabetes mellitus December 05, 2024 8:39am Chief Complaint Admit Date 3 M FU December 05, 2024 8:39 am Reason for Visit Admit Date Cellulitis, abdominal wall February 12 10:00pm Hyperlipidemia December 05, 2024 8:39 am Hypertension December 05, 2024 8:39 am Lumbar radiculopathy December 05, 2024 8:3 9am Type 2 diabetes mellitus December 05, 2024 8:39am Anemia March 13, 2025 8:11 am HTN (hypertension) March 13, 2025 8:11 am Hyperlipidemia March 13, 2025 8:11 am Type 2 diabetes mellitus March 13, 2025 8:11am Family History No Family History Records Found Relationship Condition Age at Onset Recorded Date/T jacquelyn Not Specified Anxiety Unknown mother Malignant neoplasm Unknown Diabetes mellitus Unknown Depression Unknown sister Malignant neoplasm Unknown father Malignant neoplasm of colon Unknown Cardiac disease Unknown Myocardial infarction Unknown Hypertension Unknown Cerebrovascular accident (CVA) Unknown Disorder of thyroid Unknown Family Member Condition Full Sister Obesity Mother Obesity Father Diabetes Mother Diabetes Father Heart disease Father Stroke Father Cancer Aunt Cancer Full Sister Full Sister Cancer Mother Mother Cancer Advance Directives No Advanced Directives Records Found Advance Directive Response Recorded Date/ Time Advance Directives No April 09, 2016 8:29am Living Will No March 28, 2020 5:04pm Power of Rafter Cutting Machine Operator No March 28 0 5:04pm Advance Directive Response Recorded Date/ Time Advance Directives No April 09, 2016 7:29am Living Will No March 28, 2020 4:04pm Power of Rafter Cutting Machine Operator No March 28 0 4:04pm Advance Directive Response Recorded Date/ Time Advance Directives No April 09, 2016 7:29am Living Will No July 27, 023 3:49am Power of Rafter Cutting Machine Operator No July 27, 2023 3:49am Advance Directive Response Recorded Date/ Time Advance Directives No April 09, 2016 8:29am Living Will No July 27 2 023 4:49am Power of Rafter Cutting Machine Operator No July 27, 2023 4:49am Advance Directive Response Recorded Date/ Time Living Will No July 27 2 023 4:49am Do you have a Healthcare Power of Rafter Cutting Machine Operator? No July 27, 2023 4:49am Advance Directives No April 09, 2016 8:29am Advance Directive Response Recorded Date/ Time Advance Directives No April 09, 2016 8:29am Summary Purpose Additional Source Comments Source Comments (unrecognize d section and content) In the event this informatio n is protected by the Federal Confidentiality of Alcohol and Drug Abuse Patient Records regulations: The Federal rules restrict any use of the information to criminally investigate or prosecute any alcohol or drug abuse patient.[facility] the event this information is protected by the Federal Confidentiality of Alcohol and Drug Abuse Patient Records regulations: The Federal rules restrict any use of the information to criminally investigate or prosecute any alcohol or drug abuse patient.[facility] the event this information is protected by the Federal Confidentiality of Alcohol and Drug Abuse Patient Records regulations: The Federal rules restrict any use of the information to criminally investigate or prosecute any alcohol or drug abuse patient.[facility] the event this information is protected by the Federal Confidentiality of Alcohol and Drug Abuse Patient Records regulations: The Federal rules restrict any use of the information to criminally investigate or prosecute any alcohol or drug abuse patient.[facility] the event this information is protected by the Federal Confidentiality of Alcohol and Drug Abuse Patient Records regulations: The Federal rules restrict any use of the information to criminally investigate or prosecute any alcohol or drug abuse patient.[facility] the event this information is protected by the Federal Confidentiality of Alcohol and Drug Abuse Patient Records regulations: The Federal rules restrict any use of the information to criminally investigate or prosecute any alcohol or drug abuse patient.[facility] the event this information is protected by the Federal Confidentiality of Alcohol and Drug Abuse Patient Records regulations: The Federal rules restrict any use of the information to criminally investigate or prosecute any alcohol or drug abuse patient.[facility] the event this information is protected by the Federal Confidentiality of Alcohol and Drug Abuse Patient Records regulations: The Federal rules restrict any use of the information to criminally investigate or prosecute any alcohol or drug abuse patient.[facility] the event this information is protected by the Federal Confidentiality of Alcohol and Drug Abuse Patient Records regulations: The Federal rules restrict any use of the information to criminally investigate or prosecute any alcohol or drug abuse patient.[facility] the event this information is protected by the Federal Confidentiality of Alcohol and Drug Abuse Patient Records regulations: The Federal rules restrict any use of the information to criminally investigate or prosecute any alcohol or drug abuse patient.[facility] the event this information is protected by the Federal Confidentiality of Alcohol and Drug Abuse Patient Records regulations: The Federal rules restrict any use of the information to criminally investigate or prosecute any alcohol or drug abuse patient.[facility] the event this information is protected by the Federal Confidentiality of Alcohol and Drug Abuse Patient Records regulations: The Federal rules restrict any use of the information to criminally investigate or prosecute any alcohol or drug abuse patient.[facility] the event this information is protected by the Federal Confidentiality of Alcohol and Drug Abuse Patient Records regulations: The Federal rules restrict any use of the information to criminally investigate or prosecute any alcohol or drug abuse patient.[facility] the event this information is protected by the Federal Confidentiality of Alcohol and Drug Abuse Patient Records regulations: The Federal rules restrict any use of the information to criminally investigate or prosecute any alcohol or drug abuse patient.[facility] the event this information is protected by the Federal Confidentiality of Alcohol and Drug Abuse Patient Records regulations: The Federal rules restrict any use of the information to criminally investigate or prosecute any alcohol or drug abuse patient.[facility] the event this information is protected by the Federal Confidentiality of Alcohol and Drug Abuse Patient Records regulations: The Federal rules restrict any use of the information to criminally investigate or prosecute any alcohol or drug abuse patient.[facility] Reason for Visit (unrecogniz ed section and content) Reason Comments Established Patient Reason Comments Dizziness x2 days, upset stoma ch Reason Comments Results Reason Comments Radiology Mammogram Specialty Diagnoses / Procedures Referred By Contac t Referred To Contact [facility] IM[facility] Diagnoses Invasive ductal carcinoma of left breast in female (HCC) Breast pain, left Procedures US BREAST LTD LT US BREAST UNI REAL TIME WITH IMAGE LIMITED Ocasio, [place], SNOW [employer] [address] [place] [address] [facility] [address] [place] [address] Referral ID Status Reason Start Date Expiration Date V isits Requested Visits Authorized [id number] Closed Auto-Generate d Referral 12/10/2021 01/09/2023 1 1 Reason Comments Ear Pain bilateral ear pain r ated 3, x2 days cough, nasal congestion Reason Comments Rash Poison castillo x1 week Reason Comments poison castillo Reason Comments Sinus Problem Sinus drainage, gree n mucus x 1 week Reason Comments Patient Update Reason Comments Established Patient Reason Comments Hearing loss New PT Care Teams (unrecognized sec tion and content) Pier Hand Relationship Specialty Start Date End Date Miranda Hester MD PCP - General Internal Medicine 01/05/18 Pier Hand Relationship Specialty Start Date End Date Miranda Hester MD PCP - General Internal Medicine 01/05/18 Pier Hand Relationship Specialty Start Date End Date Miranda Hester MD PCP - General Internal Medicine 01/05/18 Pier Hand Relationship Specialty Start Date End Date Miranda Hester MD PCP - General Internal Medicine 01/05/18 Pier Hand Relationship Specialty Start Date End Date Miranda Hester MD PCP - General Internal Medicine 01/05/18 Pier Hand Relationship Specialty Start Date End Date Miranda Hester MD PCP - General Internal Medicine 01/05/18 Team Status: Active Member Role Status Dates Dr. Miranda Hester MD Family Provider Active Dr. Miranda Hester MD Primary Care Provider Active Team Status: Inactive Member Role Status Dates Dr. Miranda Hester MD Primary Care P rovider, Attending Provider, Referring Provider Active Team Status: Active Member Role Status Dates Dr. Harriett Draper MD Primary Care Provider, Family Pr ovider Active Team Status: Inactive Member Role Status Dates Dr. Miranda Hester MD Primary Care Provider Active Dr. Chito Lockett MD Attending Provider, Referring Provider Active Team Status: Active Member Role Status Dates Dr. Miranda Hester MD Primary Care P rovider, Attending Provider, Referring Provider Active Pier Hand Relationship Specialty Start Date End Date Miranda Hester MD PCP - General Internal Medicine 01/05/18 Pier Hand Relationship Specialty Start Date End Date iMranda Hester MD PCP - General Internal Medicine 01/05/18 Team Status: Inactive Member Role Status Dates Dr. Miranda Hester MD Primary Care Provider, Refer ring Provider Active Jonas Cano RADIO RIGGER, RADIO RIGGER-C Attending Provider Active Team Status: Inactive Member Role Status Dates Dr. Miranda Hester MD Primary Care Provider Active JESSICA BANDA Attending Provider, Referring Provider Ac tive Pier Hand Relationship Specialty Start Date End Date Miranda Hester MD PCP - General Internal Medicine 01/05/18 Team Status: Inactive Member Role Status Dates Dr. Miranda Hester MD Primary Care Provider Active Dr. Carlton Gutierrez MD Emergency Provider Active Team Status: Inactive Member Role Status Dates Dr. Miranda Hester MD Primary Care Provider Active Dr. Carlton Gutierrez MD Attending Provider, Emergency Provider Active Team Status: Inactive Member Role Status Dates Dr. Miranda Hester MD Primary Care Provider, Atten ding Provider Active Pier Hand Relationship Specialty Start Date End Date Miranda Hester MD PCP - General Internal Medicine 01/05/18 Pier Hand Relationship Specialty Start Date End Date Miranda Hester MD PCP - General Internal Medicine 01/05/18 Pier Hand Relationship Specialty Start Date End Date Miranda Hester MD PCP - General Internal Medicine 01/05/18 Pier Hand Relationship Specialty Start Date End Date Miranda Hester MD PCP - General Internal Medicine 01/05/18 Pier Hand Relationship Specialty Start Date End Date Miranda Hester MD PCP - General Internal Medicine 01/05/18 Pier Hand Relationship Specialty Start Date End Date Miranda Hester MD PCP - General Internal Medicine 01/05/18 Team Status: Active Member Role Status Dates Dr. Harriett Draper MD Primary Care Provider Active Start: February 13, 2012 Dr. Harriett Draper MD Family Provider Active Sta rt: February 13, 2012 Team Status: Inactive Member Role Status Dates Dr. Miranda Hester MD Primary Care Provider Active Start: August 29, 2024 End: August 29, 2024 Dr. Miranda Hester MD Attending Provider Active Start: August 29, 2024 End: August 29, 2024 Dr. Miranda Hester MD Referring Provider Active Start: August 29, 2024 End: August 29, 2024 Team Status: Inactive Member Role Status Dates Dr. Miranda Hester MD Primary Care Provider Active Start: December 05, 2024 End: December 05, 2024 Dr. Miranda Hester MD Attending Provider Active Start: December 05, 2024 End: December 05, 2024 Dr. Miranda Hester MD Referring Provider Active Start: December 05, 2024 End: December 05, 2024 Team Status: Inactive Member Role Status Dates Dr. Miranda Hester MD Primary Care Provider Active Start: January 09, 2025 End: January 09, 2025 Dr. Miranda Hester MD Attending Provider Active Start: January 09, 2025 End: January 09, 2025 Dr. Miranda Hester MD Referring Provider Active Start: January 09, 2025 End: January 09, 2025 Team Status: Inactive Member Role Status Dates Dr. Miranda Hester MD Primary Care Provider Active Start: January 13, 2025 End: January 13, 2025 Dr. Miranda Hester MD Attending Provider Active Start: January 13, 2025 End: January 13, 2025 Dr. Miranda Hester MD Referring Provider Active Start: January 13, 2025 End: January 13, 2025 Team Status: Active Member Role/Relationship Status Dates Dr. Miranda Hester MD Family Provider Active Dr. Miranda Hester MD Primary Care Provider Active Team Status: Active Member Role/Relationship Status Dates Dr. Harriett Draper MD Primary Care Provider Active Start: February 13, 2012 Dr. Harriett Draper MD Family Provider Active Sta rt: February 13, 2012 Team Status: Inactive Member Role/Relationship Status Dates Dr. Miranda Hester MD Primary Care Provider Active Start: December 05, 2024 End: December 05, 2024 Dr. Miranda Hester MD Attending Provider Active Start: December 05, 2024 End: December 05, 2024 Dr. Miranda Hester MD Referring Provider Active Start: December 05, 2024 End: December 05, 2024 Team Status: Inactive Member Role/Relationship Status Dates Dr. Miranda Hester MD Primary Care Provider Active Start: December 05, 2024 End: December 05, 2024 Dr. Miranda Hester MD Attending Provider Active Start: December 05, 2024 End: December 05, 2024 Dr. Miranda Hester MD Referring Provider Active Start: December 05, 2024 End: December 05, 2024 Team Status: Inactive Member Role/Relationship Status Dates Dr. Miranda Hester MD Primary Care Provider Active Start: January 09, 2025 End: January 09, 2025 Dr. Miranda Hester MD Attending Provider Active Start: January 09, 2025 End: January 09, 2025 Dr. Miranda Hester MD Referring Provider Active Start: January 09, 2025 End: January 09, 2025 Team Status: Inactive Member Role/Relationship Status Dates Dr. Miranda Hester MD Primary Care Provider Active Start: January 13, 2025 End: January 13, 2025 Dr. Miranda Hester MD Attending Provider Active Start: January 13, 2025 End: January 13, 2025 Dr. Miranda Hester MD Referring Provider Active Start: January 13, 2025 End: January 13, 2025 Team Status: Inactive Member Role/Relationship Status Dates Dr. Miranda Hester MD Primary Care Provider Active Start: January 18, 2025 End: January 18, 2025 Dr. Miranda Hester MD Attending Provider Active Start: January 18, 2025 End: January 18, 2025 Dr. Miranda Hester MD Referring Provider Active Start: January 18, 2025 End: January 18, 2025 Team Status: Inactive Member Role/Relationship Status Dates Dr. Miranda Hester MD Primary Care Provider Active Start: March 13, 2025 End: March 13, 2025 Dr. Miranda Hester MD Attending Provider Active Start: March 13, 2025 End: March 13, 2025 Dr. Miranda Hester MD Referring Provider Active Start: March 13, 2025 End: March 13, 2025 Team Status: Inactive Member Role/Relationship Status Dates Dr. Miranda Hester MD Primary Care Provider Active Start: March 14, 2025 End: March 14, 2025 Dr. Miranda Hester MD Attending Provider Active Start: March 14, 2025 End: March 14, 2025 Dr. Miranda Hester MD Referring Provider Active Start: March 14, 2025 End: March 14, 2025 Pier Hand Relationship Specialty Start Date End Date Miranda Hester MD [address] [place] [address] PCP - General Internal Medicine 03/27/25 Pier Hand Relationship Specialty Start Date End Date Miranda Hester MD [address] [place] [address] PCP - General Internal Medicine 03/27/25 Goals (unrecognized section and content) Goals may be documented in a n alternate sectionGoals may be documented in an alternate sectionGoals may be documented in an alternate sectionGoals may be documented in an alternate sectionGoals may be documented in an alternate sectionGoals may be documented in an alternate sectionGoals may be documented in an alternate sectionGoals may be documented in an alternate sectionGoals may be documented in an alternate sectionGoals may be documented in an alternate sectionGoals may be documented in an alternate sectionGoals may be documented in an alternate sectionGoals may be documented in an alternate sectionGoals may be documented in an alternate section No Information Available INFORMATION SOURCE (unrecogn ized section and content) DATE CREATED AUTHOR 09/15/2024 [facility] DATE CREATED AUTHOR AUTHOR'S ORGANIZ ATION 04/02/2025 [facility] DATE CREATED AUTHOR AUTHOR'S ORGANIZ ATION 05/11/2025 [facility] FOR RECORDS PERTAINING TO PATIENTS WHO ARE [...] BE BASED ON THE PRIMARY CLINICAL RECORDS. [employer] provides no warranty or guarantee of the accuracy or completeness of information in this document.
--- NOTE | 2025-06-05 06:41 | ED.VIS.BACK ---
HPI History of Present Illness Chief Complaint: Back Informant: patient Narrative Narrative: Patient is a 75-year-old female with history of 2 lumbar spinal surgeries (performed with Dr. Perales at the [facility]), diabetes mellitus, hypertension, prior bariatric surgery, presenting for increased pain of her left thigh. Patient states for the past week she has had increased pain. She denies any trauma or injury. She denies any falls. States she does not have any numbness. States the pain starts at her proximal thigh and goes to her knee. She cannot sleep because of the pain. She has had dry heaves and nausea because of the pain. She has an appointment to see Dr. Remy on the of this week and will call to see if she get in sooner. She states she did not like to do because of the pain so she came for further evaluation. She notes that if she presses on her thigh she will feel the pain radiate up. Denies any overlying skin changes or rash. Denies any fever or chills. [place] any bowel or bladder incontinence. States this feels different than her prior lumbar radiculopathy is requiring surgery because it does not radiate down further and she does not have any numbness. 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 Varicose veins of left leg with edema Cervical radiculopathy Left arm pain Left breast mass Abnormal mammogram of right breast Anemia Breast cancer HTN (hypertension) Diabetes High cholesterol Home Medications ?Medication ?Instructions ?Recorded ?Last Taken ?Type cyanocobalamin (vitamin B-12) See Rx Instructions .Route 09/02/24 Unknown Rx 1,000 mcg/mL injection solution .COMPLEX #10 mL hydrochlorothiazide 12.5 mg capsule See Rx Instructions .Route 09/02/24 Unknown Rx .COMPLEX #90 caps blood sugar diagnostic (Accu-Chek #200 ea 10/25/24 Unknown Rx Guide test strips) blood sugar diagnostic (Blood #100 ea 10/25/24 Unknown Rx Glucose Test strips) blood-glucose meter (Blood Glucose #1 ea 10/25/24 Unknown Rx Monitoring kit) lancets 17 gauge (Acti-Sid #300 ea 10/25/24 Unknown Rx Lancets) ferrous sulfate 325 mg (65 mg 325 mg PO Q OTHER DAY #90 tabs 12/08/24 Unknown Rx iron) tablet cholecalciferol (vitamin D3) 1,250 See Rx Instructions .Route 03/20/25 Unknown Rx mcg (50,000 unit) capsule .COMPLEX #12 caps glimepiride 2 mg tablet 2 mg PO QAM #90 tabs 03/20/25 Unknown Rx metformin 1,000 mg tablet 1,000 mg PO DAILY #90 tabs 03/20/25 Unknown Rx ramipril 5 mg capsule 5 mg PO DAILY #90 CAPSULES 03/20/25 Unknown Rx rosuvastatin 10 mg tablet 10 mg PO DAILY #90 tabs 03/20/25 Unknown Rx potassium chloride 10 mEq See Rx Instructions .Route 03/21/25 Unknown Rx tablet,extended release .COMPLEX #90 tabs hydrocodone-acetaminophen 5-325mg 1 tab PO Q6H PRN PRN Pain 3 days 06/05/25 Unknown Rx 5mg-325mg #12 TABLETS ondansetron 4 mg disintegrating 4 mg PO Q8H PRN PRN Nausea #10 tabs 06/05/25 Unknown Rx tablet Allergy/AdvReac Type Severity Reaction Status Date / Time prochlorperazine (From Allergy Other Verified 06/05/25 05:26 Compazine) NSAIDS (Non-Steroidal AdvReac Upset Verified 06/05/25 05:26 Anti-Inflamma Stomach Family History Mother Cancer Pancreatic cancer Diabetes Depression Sister Cancer Lung cancer Father Colon cancer Heart disease Myocardial infarction Hypertension CVA (cerebral vascular accident) Sister Cancer Kidney cancer Thyroid disorder Other Anxiety Surgical History S/P lumbar fusion History of back surgery History of revision of total knee arthroplasty History Panniculectomy History of left cataract surgery History of partial mastectomy of left breast History of breast reconstruction history of stomach surgery History of cholecystectomy H/O tubal ligation History of gastric bypass Social History Smoking Status: Never smoker second hand exposure: No alcohol intake: never what type of physical activity do you participate in: none ROS ROS ED Constitutional Constitutional ED: Denies chills or fever(s) Gastrointestinal Gastrointestinal: Reports nausea and vomiting; Denies abdominal pain Genitourinary Genitourinary ED: Denies dysuria or hematuria Musculoskeletal Musculoskeletal: Reports myalgias and other Details: left low back pain, left thigh pain Integumentary Denies rash Neurologic Neurologic: Denies paresthesias or weakness Hematologic/Lymphatic Hematologic/Lymphatic: Denies easy bleeding or easy bruising EXAM Physical Exam Const Vital Signs: 06/05/25 05:27 06/05/25 07:26 Temperature 97.6 F L Temperature Source Oral Pulse Rate 78 72 Respiratory Rate 16 16 Blood Pressure 148/90 H 117/68 Blood Pressure Mean 109 84 Pulse Ox 100 97 Oxygen Delivery Method Room Air Positive well nourished and well developed General Appearance ED: well developed and NAD HEENT Reports moist mucous membranes Neck supple Resp normal respiratory effort Cardio regular rate and regular rhythm GI normal to inspection, nondistended, normoactive bowel sounds, soft to palpation and non-tender Back/Spine Back/Spine Narrative: Midline lower lumbar surgical scar that is well-healed. No midline tenderness. Mild tenderness palpation of the left lower lumbar back. Negative straight leg test bilaterally. No overlying skin changes appreciated. Extremity normal to inspection Extremity Narrative: Tenderness palpation of the left anterior thigh. Compartments are soft. No pedal edema appreciated. No pain with range of motion of the left hip. No pain with range of motion of the left knee. General Extremety ED: Negative for edema General Extremity: Negative for edema Neuro oriented x3 and no sensory deficits noted Sensorium / Orientation: alert Motor Exam: strength 5/5 throughout Psych mental status grossly normal Skin no rashes or lesions noted MDM MDM MDM Narrative Medical decision making narrative: Patient evaluated for increased pain of her left thigh. Differential includes myositis, nerve impingement, muscle spasm herniated disc. She denies any trauma is not any bony tenderness to low suspicion for fracture. She has good distal pulses a low suspicion for an acute vascular abnormality causing her pain. Patient is given IV morphine and Zofran for symptom control. Will check basic labs including BMP, magnesium and CPK to ensure there is not a metabolic cause to her pain. This is negative anticipate patient be discharged home with prescription for pain medication as well as nausea medication and she will follow-up outpatient with her spinal surgeon. She has had pain for only 1 week, no trauma and no midline tenderness I do not think she requires any emergent imaging at this time. She does not have any red flag symptoms for cauda equina syndrome. Patient given morphine. Has improvement with this. CK and potassium normal. She does have a bicarb of 19 with anion gap of 16 however glucose is 108. She states she has not drink anything all night and is counseled that she needs to follow-up with her primary care doctor for this and make sure she is pushing fluids at home. She verbalizes understanding of this. Lower suspicion for DKA, euglycemic DKA at this time. Patient is given dose of [place] will be discharged home with a prescription for this as well as Zofran. Given return precautions. Encouraged to follow-up with her social problems specialist. Discharged home in stable and improved condition. Lab Data Labs: Laboratory Results - last 24 hr 06/05/25 06:30 Sodium 137 Potassium 4.3 Chloride 102 Carbon Dioxide 19.0 L Anion Gap 16 H BUN 23 H Creatinine 0.81 Est GFR (MDRD) Non-Af 75 BUN/Creatinine Ratio 28.9 H Glucose 108 H Calcium 9.3 Magnesium 2.2 Total Creatine Kinase 81 Discharge Plan Triage Chief Complaint: Back ED Provider: Edie Treviño Dx/Rx/DC Orders Clinical Impression: Acute pain of left thigh, Left lumbar radiculopathy, History of back surgery Instructions: Understanding Lumbar Radiculopathy, ED Back Pain (Acute or Chronic) Prescriptions: New hydrocodone-acetaminophen 5-325 mg tablet 1 tab PO Q6H PRN PRN (Reason: Pain) 3 Days Qty: 12 0RF ondansetron 4 mg tablet,disintegrating 4 mg PO Q8H PRN PRN (Reason: Nausea) Qty: 10 0RF No Action cyanocobalamin (vitamin B-12) 1,000 mcg/mL solution See Rx Instructions .ROUTE .COMPLEX Qty: 10 6RF Dose Instruction: INJECT 1 ML (CC) INTRAMUSCULARLY EVERY TWO WEEKS FOR MALABSORPTION Rx Instructions: INJECT 1 ML (CC) INTRAMUSCULARLY EVERY TWO WEEKS FOR MALABSORPTION hydrochlorothiazide 12.5 mg capsule See Rx Instructions .ROUTE .COMPLEX Qty: 90 1RF Dose Instruction: TAKE 1 CAPSULE BY MOUTH ONCE DAILY FOR BLOOD PRESSURE Rx Instructions: TAKE 1 CAPSULE BY MOUTH ONCE DAILY FOR BLOOD PRESSURE (DME) Accu-Chek Guide test strips Strip See Rx Instructions .ROUTE .MEDSUPPLY Qty: 200 3RF Rx Instructions: check blood glucose 3x daily as directed (DME) blood-glucose meter [Blood Glucose Monitoring] Kit See Rx Instructions .ROUTE .MEDSUPPLY Qty: 1 0RF Rx Instructions: Check daily (DME) Acti-Sid Lancets 17 gauge misc See Rx Instructions .ROUTE .MEDSUPPLY Qty: 300 2RF Rx Instructions: Check 3x daily (DME) Blood Glucose Test Strip See Rx Instructions .ROUTE .MEDSUPPLY Qty: 100 3RF Rx Instructions: Check daily ferrous sulfate 325 mg (65 mg iron) tablet 325 mg PO Q OTHER DAY Qty: 90 1RF glimepiride 2 mg tablet 2 mg PO QAM Qty: 90 1RF Rx Instructions: administer with breakfast cholecalciferol (vitamin D3) 1,250 mcg (50,000 unit) capsule See Rx Instructions .ROUTE .COMPLEX Qty: 12 0RF Dose Instruction: Take 1 capsule by mouth once a week Rx Instructions: Take 1 capsule by mouth once a week metformin 1,000 mg tablet 1,000 mg PO DAILY Qty: 90 1RF ramipril 5 mg capsule 5 mg PO DAILY Qty: 90 1RF rosuvastatin 10 mg tablet 10 mg PO DAILY Qty: 90 1RF potassium chloride 10 mEq tablet extended release See Rx Instructions .ROUTE .COMPLEX Qty: 90 3RF Dose Instruction: Take 1 tablet by mouth once daily Rx Instructions: Take 1 tablet by mouth once daily Primary Care Provider: Isidro Hester Referrals: Isidro Hester MD [Primary Care Provider, Internal Medicine] Activity Restrictions/Additional Instructions: Please follow-up with Dr. Perales as we discussed. I suspect you have some new lumbar nerve irritation possibly from a slipped disc versus muscle spasm that is causing the pain in your left thigh. Your blood work did show some mild signs of dehydration including mild elevation of your anion gap and your bicarb is mildly low. Please make sure you are drinking plenty of fluids at home and follow-up with your family doctor for recheck of this to ensure that it is normalized. I do recommend taking a stool softener or MiraLAX with the pain medication to prevent opioid-induced constipation. Print Language: Serbian Disposition Disposition: Home, Self Care
[2025-06-05 07:21] LABS: Anion Gap 16 (5-15); BUN 23 mg/dL (4-19); BUN/Creat Ratio 28.9 RATIO (10-20); CPK Total, Creatine Kinase 81 U/L (24-195); Calcium,Total 9.3 mg/dL (7.6-11.0); Carbon Dioxide 19.0 mmol/L (21.0-32.0); Chloride 102 mmol/L (98-108); Glucose 108 mg/dL (70-99); Magnesium 2.2 mg/dL (1.5-2.2); Potassium 4.3 mmol/L (3.3-5.1)
[2025-06-05 07:26] VITALS: BP 117/68; PULSE 72; RESP 16; O2SAT 97
[2025-06-05] MEDS: HYDROcodone Bitartrate/Apap 5/325 Tablet PO (07:51)
--- NOTE | 2025-06-05 07:54 | EKG12_ITS ---
Test Reason : CHEST PRESSURE Blood Pressure : */* mmHG Vent. Rate : 72 BPM Atrial Rate : 72 BPM P-R Int : 150 ms QRS Dur : 78 ms QT Int : 418 ms P-R-T Axes : 23 26 39 degrees QTcB Int : 457 ms Normal sinus rhythm Normal ECG Confirmed by TULIO MCCARTHY, CODI ([id number]), news video editor AJAY GHOTRA ([id number]) on 06/07/2025 1:19:40 PM Referred By: LINDSAY Confirmed By: CODI ANTUNEZ MD
[2025-06-05] MEDS: 0.9% Normal Saline (1000mL) 1,000 ML 999 ML IV (08:19)
[2025-06-05 09:00] VITALS: BP 99/64; PULSE 76; RESP 14; O2SAT 100
[2025-06-05 09:44] LABS: Troponin T High Sensitivity 10 ng/L (<=14)
[2025-06-05 11:00] VITALS: BP 127/87; PULSE 74; RESP 16; O2SAT 99
[2025-06-05 11:43] LABS: Troponin T High Sens 2 HR 11 ng/L (<=14)
[2025-06-05 13:07] VITALS: BP 108/79; PULSE 66; RESP 14; TEMP 36.6; O2SAT 100
== END 2025-06-05 13:07 | disposition home or self-care (01) ==
PROVIDERS: Emergency Medicine; Emergency Provider Emergency Medicine; PCP Internal Medicine; Visit Provider Emergency Medicine
DX: M54.16 Radiculopathy, lumbar region (principal); E11.9 Type 2 diabetes mellitus without complications; E78.00 Pure hypercholesterolemia, unspecified; I10 Essential (primary) hypertension; M79.652 Pain in left thigh; Z98.890 Other specified postprocedural states; Z85.3 Personal history of malignant neoplasm of breast; Z79.84 Long term (current) use of oral hypoglycemic drugs; Z79.899 Other long term (current) drug therapy; Z96.659 Presence of unspecified artificial knee joint; Z90.12 Acquired absence of left breast and nipple; Z90.49 Acquired absence of other specified parts of digestive tract; Z98.51 Tubal ligation status
CPT/HCPCS: 80048; 82550; 83735; 84484; 93005; 96361; 96374; 96375; 96376; 99283; A4216; J2405

== ENCOUNTER → 2025-06-23 | Outpatient (CLI) | payer MEDICARE, OTHER, SELFPAY ==
--- OUTSIDE RECORDS SUMMARY | 2025-06-23 06:14 | XMS RPT_ITS | CCD ---
Author Organization [facility] Care Team Providers Care Shuttle Threader Name Role Phone Miranda Hester MD Primary Care Provider [phone] Dr. Miranda Hester Primary Care Provider [...] Kacie, Dr. Felix Primary Care Provider [phone] Kacie, Dr. Felix Attending Provider [phone] Kacie, Dr. Felix Referring Provider [phone] Kacie, Dr. Felix Primary Care Provider [phone]) Kacie, Dr. Felix Attending Provider [phone] Kacie, Dr. Felix Referring Provider [phone] Miranda Hester MD Primary Care Provider [phone] MIRANDA HESTER Primary Care Unavailable CHANDA OCASIO Referring Unavailable MIRANDA HESTER Primary Care Unavailable CHANDA OCASIO Attending Unavailable MIRANDA HESTER Primary Care Unavailable Baron MCCARTHY, Dr. Lorenzana Primary Care Provider [phone] Kacie MCCARTHY, Dr. Felix Primary Care Provider Kacie MCCARTHY, Dr. Felix Attending Provider [phone]) Kacie MCCARTHY, Dr. Felix Referring Provider 1(33 0) Kacie MCCARTHY, Dr. Felix Primary Care Provider Kacie MCCARTHY, Dr. Felix Attending Provider [phone]) Kacie MCCARTHY, Dr. Felix Referring Provider 1(33 0) Adria MCCARTHY, Darin V Unavailable [place]gar REFINERY OPERATOR HELPER CRACKING UNIT-POCKET CLOSER, Marni Unavailable Miranda Hester MD Unavailable [phone] Miranda Hester MD Primary Care Prov ider MIRANDA HESTER Primary Care Unav ailable YAJAIRA JOSEPH Attending Unavailable HARSHA RIGGINS Attending Unavailable MIRANDA HESTER Primary Care Unav ailable Baron MD, Dr. Lorenzana Primary Care Physician Kacie MCCARTHY, Dr. Felix Primary Care Physician Kacie MCCARTHY, Dr. Felix Attending Physician [phone] Kacie MCCARTHY, Dr. Felix Referring Provider Dr. Edie Treviño DO Emergency Department Physi yolanda Hiram Matthew Attending Unavailable Oleghe, Efewongbe Primary Care Unavailable Oleghe, Efewongbe Attending Unavailable Oleghe, Efewongbe Primary Care Unavailable Oleghe, Efewongbe Referring Unavailable Oleghe, Efewongbe Attending Unavailable Oleghe, Efewongbe Referring Unavailable Oleghe, Efewongbe Primary Care Unavailable Provider, Ed Physician Attending Unavailab le Oleghe, Efewongbe Primary Care Unavailable Oleghe, Efewongbe Attending Unavailable Oleghe, Efewongbe Referring Unavailable Oleghe, Efewongbe Primary Care Unavailable Oleghe, Efewongbe Referring Unavailable Oleghe, Efewongbe Primary Care Unavailable Oleghe, Efewongbe Attending Unavailable Oleghe, Efewongbe Attending Unavailable Oleghe, Efewongbe Referring Unavailable Oleghe, Efewongbe Primary Care Unavailable Oleghe, Efewongbe Attending Unavailable Oleghe, Efewongbe Referring Unavailable Oleghe, Efewongbe Primary Care Unavailable Oleghe, Efewongbe Attending Unavailable Oleghe, Efewongbe Referring Unavailable Oleghe, Efewongbe Primary Care Unavailable Oleghe, Efewongbe Primary Care Unavailable Oleghe, Efewongbe Attending Unavailable Oleghe, Efewongbe Referring Unavailable Oleghe, Efewongbe Primary Care Unavailable Oleghe, Efewongbe Attending Unavailable Oleghe, Efewongbe Referring Unavailable Oleghe, Efewongbe Primary Care Unavailable Oleghe, Efewongbe Attending Unavailable Oleghe, Efewongbe Referring Unavailable Oleghe, Efewongbe Primary Care Unavailable Edie Treviño Attending Unavailable Allergies Allergy Classification Reported Allergen(s) Allergy Type Date of Onset Reaction(s) Facility (17 sources) Prochlorperazine; Translations: [PROCHLORPERAZINE EDISYLATE] Drug Allergy 04-02-20 09 Itching [facility] (18 sources) Prochlorperazine; Translations: [PROCHLORPERAZINE] Drug Allergy 04-02-20 09 Itching [facility] (9 sources) Nonsteroidal Anti-inflammatory Compounds Propensity to adverse reactions 07-27-20 Upset Stomach [facility] Comment on above: HX: GASTRIC BYPASS. (2 sources) Prochlorperazine Drug Allergy 08-03-20 14 Apparent. (1 source) NSAIDs Drug allergy (disorder) 06-19-20 [facility] (1 source) Prochlorperazine Drug Allergy 06-19-20 [facility] Medications Current Medications Medication Drug Class(es) Dates Sig (Normalized) Sig (Original) acetaminophen 325 mg / HYDROcodone bitartrate 5 mg oral tablet (20 sources) Opioid Agonist Start: 06-05-2025 take 1 tablet by mouth every six hours as needed for pain Start: 08-31-2024 take 1 tablet by pritesh th every six hours as needed HYDROcodone-Acetaminophen (NORCO) 7.5-32 5 mg per tablet Take 1 tablet by [...] day for 7 days. B12 INJECTION 1000MG (2 sources) Start: 08-03-2014 B12 INJECTION 1000MG 1 ml as directed every two weeks active Radha Tubbs AT [facility] Blood-Glucose Meter (Blood Glucose Monitoring) kit (20 sources) Start: 10-25-2024 Blood-Glucose Meter (Blood Glucose Monitoring) kit Active 0 .ROUTE .MEDSUPPLY 1 0 October 25, 2024 12:30pm Type 2 diabetes mellitus Type 2 diabetes mellitus without complications diabetes Check daily Start: 10-25-2024 Blood-Glucose Meter (Blood Glucose Monitoring) kit Active 0 .ROUTE .MEDSUPPLY 1 October 25, 2024 12:30pm Check daily Start: [...] 0 .ROUTE .MEDSUPPLY 1 April 19, 2021 10:14am April 22, 2021 12:33pm Type 2 diabetes mellitus Type 2 diabetes mellitus without complications diabetes Check blood sugar twice a day and as needed Start: 04-19-2021 End: 04-22-2021 Blood-Glucose Meter (Blood G lucose Monitoring) kit Discontinued 0 .ROUTE .MEDSUPPLY April 19, 2021 9:14am April 22, 2021 [...] 11:00pm April 19, 2021 9:15am As directed cholecalciferol 1.25 mg oral capsule (20 sources) Vitamin D Start: 12-15-2017 End: 03-20-2025 take 1 capsule by mouth every week Cholecalciferol (Vitamin D3) 1,250 mcg (50,000 unit) capsule Active 0 .ROUTE .COMPLEX 12 March 20, 2025 6:34pm Take 1 capsule by mouth once a week Complies with drug therapy Compr.Stocking,Thigh,S hort,Med (9 sources) Start: 02-15-2021 Compr.Stocking ,Thigh,S hort,Med Active 0 .ROUTE .MEDSUPPLY February 15, 2021 [...] other day 90 December 08, 2024 12:00am Complies with drug therapy Start: 01-23-2023 take 1 tablet by pritesh [...] once daily. gabapentin 300 mg oral capsule (9 sources) Anti-epileptic Agent Start: 09-01-2024 take 7.5 [...] tablet (20 sources) Sulfonylurea Start: 07-05-2021 End: 03-20-2025 take 1 tablet by mouth once daily at breakfast Glimepiride 2 mg tablet Active 2 mg PO EVERY MORNING 90 1 March 20 2025 6:34pm administer with breakfast Complies with drug therapy Comment on above: 2 mg once daily. magnesium gluconate 250 mg oral tablet (2 sources) take 1 tablet by mouth once daily magnesium gluconate 12.5 mg magnesium (250 mg) tablet 1 tablet by mouth once a day as directed active Radha Tubbs AT [facility] metaxalone 400 mg oral tablet (3 sources) take 1 tablet by mouth every eight hours as needed Metaxalone 400 mg tab Take 400 mg by mouth three times a day as needed. Active metFORMIN hydrochloride 1000 mg oral tablet (20 sources) Biguanide Start: 10-16-2023 End: 03-20-2025 take 1 tablet by mouth once daily Metformin 1,000 mg tablet Active 1000 mg PO DAILY 90 March 20, 2025 6:34pm Complies with drug therapy Start: 07-28-2018 End: 10-16-2023 take 1 tablet [...] mg by pritesh th daily with breakfast. methylPREDNISolone 4 mg oral tablet (1 source) Corticosteroid Start: 2024 End: 2024 methylprednisolone 4 mg tablets in a dose pack Take 4 mg by mouth as directed follow packet instructions for use active - Darin Covington MD, [address] [facility] [address] Osteoarthritis of spine with radiculopathy, lumbosacral region [facility] ondansetron 4 mg disintegrating oral tablet (7 sources) Serotonin-3 Receptor Antagonist Start: 2024 take 1 tablet by mouth every eight hours as needed for nausea Start: 07-26-2024 End: 12-05-2024 take 1 tablet by mouth three times daily as needed for nausea and vomiting Ondansetron 4 mg tablet,disintegrating Discontinued 4 mg PO THREE TIMES A DAY as needed for nausea and vomiting 21 0 July 26, 2024 6:15am December 05, 2024 8:51am potassium chloride 10 meq extended release oral tablet (20 sources) Start: 07-04-2020 End: 03-21-2025 take 1 tablet by mouth once daily Potassium Chloride 10 mEq tablet extended release Active 0 .ROUTE .COMPLEX 90 March 21, 2025 11:51am Take 1 tablet by mouth once daily Complies with drug therapy Comment on above: Take 10 mEq by mouth once daily. predniSONE 10 mg oral tablet (2 sources) Start: 03-02-2023 End: 03-11-2023 predniSONE (DELTASONE) 10 mg tablet Indications: Rhus [...] (20 sources) Angiotensin Converting Enzyme Inhibitor Start: 10-07-2023 End: 03-20-2025 take 1 capsule by mouth once daily Ramipril 5 mg capsule Active 5 mg PO DAILY 90 March 20, 2025 6:34pm Complies with drug therapy Start: 12-15-2017 End: 10-16-2023 take 1 capsule by mouth twice daily Ramipril 5 mg capsule Discontinued 0 .ROUTE .COMPLEX 180 March 06, 2023 2:00pm October 16, 2023 9:38am Take 1 capsule by mouth twice daily Start: 04-08-2016 End: 12-15-2017 take 1 capsule by mouth once daily Ramipril 5 MG capsule Discontinued 5 mg PO DAILY April 08, 2016 12:00am December 15, 2017 9:12am rosuvastatin calcium 10 mg oral tablet (20 sources) HMG-CoA Reductase Inhibitor Start: 02-10-2024 End: 03-20-2025 take 1 tablet by mouth once daily Rosuvastatin 10 mg tablet Active 10 mg PO DAILY 90 March 20, 2025 6:34pm Complies with drug therapy Start: 12-15-2017 End: 09-13-2024 take 1 tablet by mouth at bedtime Rosuvastatin 5 mg tablet Discontinued 5 mg PO AT BEDTIME 90 3 November 29, 2020 1:18pm January 20, 2022 8:32am Comment on above: Take 5 mg by mouth o nce daily. VITAMIN D3 (CHOLECALCIFEROL) 1.25 MG (07767 UT) CAPS (2 sources) take 1 capsule by mouth every week cholecalciferol (vitamin D3) 1,250 mcg (50,000 unit) capsule 1 CAPSULE BY MOUTH ONCE A WEEK active Radha uTbbs AT [facility] Completed/Discontinued Medications Medication Drug Class(es) Dates [...] 08, 2016 12:00am November 09, 2017 8:14am Tylenol Extra St rength 500 mg tablet 2 tablet by mouth as needed for pain active Radha Tubbs AT [facility] take 1 tablet by pritesh th three times daily acetaminophen (TYLENOL) 500 MG tablet Ta ke 1 (one) tablet (500 mg total) by mouth 3 (three) times a day . Active anastrozole 1 mg oral tablet (15 sources) Aromatase Inhibitor Start: 11-09-2017 End: 07-04-2020 take 1 tablet by mouth once daily Anastrozole 1 mg tablet Discontinued 1 mg PO daily November 09, 2017 12:00am July 04, 2020 8:59am baclofen 10 mg oral tablet (6 sources) gamma-Aminobutyric Acid-ergic Agonist Start: 05-30-2024 End: 08-29-2024 take 1 tablet by mouth at bedtime as needed for muscle spasms Baclofen 10 mg tablet Discontinued 10 mg PO AT BEDTIME as needed for muscle spasm 30 May 30, 2024 12:00am August 29, 2024 10:03am 12 hr buPROPion hydrochloride 90 mg / naltrexone hydrochloride 8 mg extended release oral tablet (6 sources) Opioid Antagonist, Aminoketone Start: 05-25-2024 End: 08-23-2024 Naltrexone-Bupropi on (Contrave) 8-90 mg tablet extended release Discontinued 2 {tbl} PO TWICE A DAY 360 90 0 May 25, 2024 12:00am August 22, 2024 1:00am August 23, 2024 1:08am cefadroxil 500 mg oral capsule (15 sources) Cephalosporin Antibacterial Start: 04-10-2016 End: 11-09-2017 take 1 capsule by mouth twice daily Cefadroxil 500 MG capsule Discontinued 500 mg PO TWICE A DAY 10 0 April 10, 2016 12:00am November 09, 2017 8:14am Compr.Zac Soriano Short,Med misc (6 sources) Start: 02-15-2021 End: 12-05-2024 Compr.Adriana Soriano Short,Med misc Discontinued 0 .ROUTE .MEDSUPPLY 4 0 February 15, 2021 12:00am December 05, 2024 8:49am 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 Varicose veins of left lower extremity with other complications As directed Start: 02-15-2021 End: 12-05-2024 Compr.Jose Soriano Short,M ed misc Discontinued 0 .ROUTE .MEDSUPPLY 4 February 15, 2021 12:00am December 05, 2024 8:49am As directed empagliflozin 25 mg oral tablet (15 sources) Sodium-Glucose Cotransporter 2 Inhibitor Start: 07-05-2021 End: 07-05-2021 take 1 tablet by mouth once daily in the morning Empagliflozin (Jardiance) 25 mg tablet Discontinued 25 mg PO EVERY MORNING 30 1 July 05, 2021 12:00am July 05, 2021 2:11pm ergocalciferol 1.25 mg oral capsule (20 sources) Provitamin D2 Compound Start: 11-09-2017 End: 12-15-2017 Ergocalciferol (Vitamin D2) 50,000 unit capsule Discontinued 41820 U PO every 2 weeks November 09, [...] tablet Discontinued 5 mg PO daily 90 January 20, 2022 12:39pm July 27, 2023 [...] 1 tablet by pritesh th once daily. fenofibrate 160 mg oral tablet (15 sources) Peroxisome Proliferator Receptor alpha Agonist Start: 11-10-19 End: 12-16-19 18 take 1 tablet by mouth once daily Fenofibrate 160 mg tablet Discontinued 160 mg PO daily November 09, 2017 12:00am December 15, 2017 9:13am fluconazole 100 mg oral tablet (15 sources) Azole Antifungal Start: 04-10-20 16 End: 11-10-19 18 take 2 tablets by mouth once daily Fluconazole 100 MG tablet Discontinued 200 mg PO DAILY 3 0 April 10, 2016 12:00am November 09, 2017 8:15am Start: 04-10-2016 End: 11-09-2017 take 200 mg by mouth once daily Fluconazole Discontinued 200 MG PO DAILY April 10, 2016 12:00am November 09, 2017 8:15am hydroCHLOROthiazide 12.5 mg oral capsule (20 sources) Thiazide Diuretic Start: 01-01-2015 End: 09-02-2024 take 1 capsule by mouth once daily Hydrochlorothiazide 12.5 mg capsule Discontinued 0 .ROUTE .COMPLEX 90 0 June 17, 2024 4:34pm September 02, 2024 1:37pm TAKE 1 CAPSULE BY MOUTH ONCE DAILY FOR BLOOD PRESSURE Start: 08-03-2014 take 1 tablet by pritesh th once daily hydrochlorothiazide 12.5 mg tablet 1 tablet by mouth once a day active Radha Tubbs AT [facility] Comment on above: Take 12.5 mg by mout h once daily. hydrOXYzine hydrochloride 25 mg oral tablet (6 sources) Antihistamine Start: 03-05-20 End: 09-13-19 take 1 tablet by mouth every eight [...] oral tablet (20 sources) Aromatase Inhibitor Start: 07-04-20 End: 09-13-19 take 1 tablet by mouth once daily Letrozole 2.5 mg tablet Discontinued 2.5 mg PO DAILY July 04, 2020 1:00am January 20, 2022 8:30am Comment on above: Take 1 tablet by pritesh th once daily meclizine hydrochloride 12.5 mg oral tablet (13 sources) Antiemetic Start: 12-31-19 End: 09-13-19 take 1-2 tablets by mouth every six [...] tablet (20 sources) Nonsteroidal Anti-inflammatory Drug Start: 08-29-20 End: 08-29-20 24 take 1 tablet by mouth once daily Meloxicam 15 mg tablet Discontinued 15 mg PO daily August 29, 2024 1:00am August 29, 2024 1:29pm Start: 01-14-2021 End: 01-20-2022 take 1 tablet by mouth once as needed for pain Meloxicam (Mobic) 15 mg tablet Discontinued 15 mg PO ONCE as needed for pain 90 October 28, 2021 9:34am January 20, 2022 8:31am methocarbamol 500 mg oral tablet (6 sources) Muscle Relaxant Start: 07-26-2024 End: 12-05-2024 take 1 tablet by mouth four times daily as needed for pain Methocarbamol 500 mg tablet Discontinued 500 mg PO 4 TIMES DAILY as needed for Muscle pain/spasm 40 0 July 26, 2024 6:16am December 05, 2024 8:51am oxyCODONE hydrochloride 5 mg oral tablet (6 sources) Opioid Agonist Start: 07-26-2024 End: 08-29-2024 take 1 tablet by mouth every six hours as needed for pain Oxycodone 5 mg tablet Discontinued 5 mg PO EVERY 6 HOURS as needed for pain 20 5 0 July 26, 2024 August 29, 2024 10:03am Lumbar radiculopathy Radiculopathy, lumbar region SITagliptin 100 mg oral tablet (15 sources) Dipeptidyl Peptidase 4 Inhibitor Start: 06-20-2019 End: 06-20-2019 take 1 tablet by mouth once daily Sitagliptin Phosphate (Januvia) 100 mg tablet Discontinued 100 mg PO DAILY 30 1 June 20, 2019 12:00am June 20, 2019 1:50pm triamcinolone acetonide 1 mg/ml topical cream (13 sources) Corticosteroid Start: 03-11-2023 End: 03-27-2023 Triamcinolone Acetonide 0.1 % cream Discontinued 1 NMA TOPICAL TWICE A DAY as needed for rash 453.6 1 March 11, 2023 12:00am March 27, 2023 [...] Apply sparingly to area for rash/itching. tumric (6 sources) Start: 08-29-2024 End: 12-05-2024 tumric Discontinued [...] November 10, 2017 8:23am Start: 10-23-2016 End: 09-02-2024 Cyanocobalamin (Vitamin B-12 ) 1,000 mcg/mL solution Discontinued 0 .ROUTE .COMPLEX 10 July 10, 2023 2:01pm September 02, 2024 1:37pm INJECT 1 ML (CC) INTRAMUSCULARLY EVERY TWO WEEKS FOR MALABSORPTION Start: 10-23-2016 End: 11-10-2017 inject 1000 ug by intramuscular injection every month Cyanocobalamin (Vitamin B-12) 1,000 mcg/mL kit Discontinued 1000 ug IM EVERY MONTH November 09, 2017 12:00am November 10, 2017 8:23am Comment on above: Inject 1 mL intramus cularly as directed. 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; Translations: [Malignant neoplasm of unspecified site of left female breast] Onset: 07-28-2011 Chronic Cancer of breast (16 sources) History of malignant neoplasm of breast; Translations: [Personal history of malignant neoplasm of breast] 04-08-2016 Episodic Complications of surgical procedures or medical care (20 sources) Post-surgical malabsorption; Translations: [Postsurgical malabsorption, not elsewhere classified] Onset: 06-19-2025 Chronic Conditions associated with dizziness or vertigo (1 source) Vertigo; Translations: [Dizziness and giddiness] Episodic Deficiency and other anemia (20 sources) Anemia; Translations: [Anemia, unspecified] Onset: 04-02-2009 04-02-2009 Episodic Deficiency and other anemia (3 sources) Anemia, unspecified; Translations: [Anemia, unspecified] Onset: 06-19-2025 10-22-2022 Episodic Diabetes mellitus with complications (1 source) Type 2 diabetes mellitus with other specified complication; Translations: [Type 2 diabetes mellitus with other specified complication] Onset: 06-19-2025 Chronic Diabetes mellitus without complication (20 sources) Diabetes mellitus; Translations: [Type 2 diabetes mellitus without complications] Onset: 06-19-2025 Chronic Diseases of white blood cells (20 sources) Neutropenia; Translations: [Neutropenia, unspecified] Onset: 10-16-2011 10-16-2011 Chronic Disorders of lipid metabolism (15 sources) Hyperlipidemia; Translations: [Hyperlipidemia, unspecified] Onset: 06-19-2025 02-10-2024 Chronic Essential hypertension (20 sources) Essential hypertension; Translations: [Essential (primary) hypertension] Onset: 02-25-2017 02-25-2017 Chronic Immunizations and screening for infectious disease (15 sources) Needs influenza immunization; Translations: [Encounter for immunization] 07-05-2021 Episodic Joint disorders and dislocations; trauma-related (2 sources) Derangement of knee; Translations: [Unspecified internal derangement of left knee] Onset: 02-16-2024 02-16-2024 Chronic Nonmalignant breast conditions (17 sources) Mastodynia; Translations: [Mastodynia] Episodic Nutritional deficiencies (16 sources) Vitamin D deficiency; Translations: [Vitamin D deficiency, unspecified] Onset: 06-19-2025 01-04-2019 Chronic Osteoarthritis (18 sources) Osteoarthritis; Translations: [Unspecified osteoarthritis, unspecified site] Onset: 12-01-2024 10-22-2022 Chronic Other acquired deformities (3 sources) Other secondary scoliosis, lumbar region; Translations: [Scoliosis associated with other conditions] Onset: 03-24-2025 03-24-2025 Chronic Other aftercare (2 sources) Aftercare following joint replacement surgery; Translations: [Aftercare following joint replacement] Onset: 05-12-2023 10-17-2024 Chronic Other and unspecified benign neoplasm (20 sources) History of polyp of colon; Translations: [Personal history of colonic polyps] Onset: 02-15-2015 02-15-2015 Episodic Other bone disease and musculoskeletal deformities (15 sources) Osteopenia; Translations: [Other specified disorders of bone density and structure, unspecified site] 07-28-2018 Episodic Other bone disease and musculoskeletal deformities (3 sources) Other specified disorders of bone density and structure, unspecified site; Translations: [Disorder of bone and cartilage, unspecified] Onset: 06-19-2025 10-16-2023 Episodic Other connective tissue disease (2 sources) Presence of right artificial knee joint; Translations: [Knee joint replacement] Onset: 04-07-2024 10-17-2024 Chronic Other connective tissue disease (10 sources) Thigh pain; Translations: [Pain in right thigh] 07-27-2023 Episodic Other connective tissue disease (6 sources) Pain in left lower limb; Translations: [...] [Otalgia, unspecified] 05-09-2025 Episodic Other gastrointestinal disorders (15 sources) History of bariatric surgical procedure; Translations: [Bariatric surgery status] 04-08-2016 Episodic Other gastrointestinal disorders (3 sources) Bariatric surgery status; Translations: [Bariatric surgery status] 11-10-2022 Episodic Other nervous system disorders (15 sources) H/O: Disorder; Translations: [Personal history of other diseases of the nervous system and sense organs] 04-08-2016 Episodic Other non-traumatic joint disorders (3 sources) Shoulder pain; Translations: [Pain in left shoulder] 02-15-2021 Episodic Other non-traumatic joint disorders (14 sources) Pain in left shoulder; Translations: [Pain in joint, shoulder region] Episodic Other nutritional; endocrine; and metabolic disorders (6 sources) Body mass index 25-29 - overweight; Translations: [Overweight] 05-25-2024 Episodic Other screening for suspected conditions (not mental disorders or infectious disease) (20 sources) Mammography abnormal; Translations: [Other abnormal and inconclusive findings on diagnostic imaging of breast] Onset: 07-18-2011 07-18-2011 Episodic Other skin disorders (11 sources) Eruption; Translations: [Rash and other nonspecific skin eruption] 03-11-2023 Episodic Other skin disorders (2 sources) Rash and other nonspecific skin eruption; Translations: [Rash and other nonspecific skin eruption] 03-11-2023 Episodic Other upper respiratory infections (2 sources) Bacterial sinusitis; Translations: [Chronic sinusitis, unspecified] Chronic Residual codes; unclassified (8 sources) H/O Spinal surgery; Translations: [Other specified postprocedural states] 10-16-2023 Episodic Comment on above: 07/14/2023 Residual codes; unclassified (2 sources) Other specified postprocedural states; Translations: [Other postprocedural status] 10-16-2023 Episodic Residual codes; unclassified (1 source) Acquired absence of stomach [part of]; Translations: [Acquired absence of stomach [part of]] Onset: 06-19-2025 Episodic Skin and subcutaneous tissue infections (20 sources) Cellulitis of abdominal wall ; Translations: [Cellulitis of abdominal wall] Episodic Spondylosis; intervertebral disc disorders; other back problems (10 sources) Degeneration of intervertebral disc; Translations: [Degeneration of intervertebral disc, site unspecified] Onset: 03-23-2024 08-03-2024 Chronic Spondylosis; intervertebral disc disorders; other back problems (20 sources) Stenosis of intervertebral foramina; Translations: [Spinal stenosis, cervical region] Onset: 05-27-2023 01-14-2021 Episodic Sprains and strains (15 sources) Sprain of ankle; Translations: [Sprain of unspecified ligament of left ankle, initial encounter] 01-28-2018 Episodic Varicose veins of lower extremity (20 sources) Varicose veins of lower limb co-occurrent with edema; Translations: [Varicose veins of right lower extremity with other complications] 02-15-2021 Episodic Past or Other Problems Problem Classification Problem Date Documented Da te Episodic/Chronic Complication of device; implant or graft (2 sources) Disorder of prosthetic joint; Translations: [Broken internal right knee prosthesis, initial encounter] Onset: 3 10-14-2022 Episodic Other connective tissue disease (2 sources) Adhesive capsulitis of shoulder; Translations: [Adhesive capsulitis of right shoulder] Onset: 5 11-28-2024 Episodic Other connective tissue disease (2 sources) Pain in calf; Translations: [Pain in left lower leg] Onset: 4 02-08-2024 Episodic Other connective tissue disease (2 sources) Arthrodesis status; Translations: [Arthrodesis status] Onset: 3 10-17-2024 Episodic Other gastrointestinal disorders (16 sources) History of bypass of stomach; Translations: [Bariatric surgery status] Onset: 7 02-25-2017 Episodic Other non-traumatic joint disorders (2 sources) Pain in left knee; Translations: [Pain in joint, lower leg] Onset: 4 02-16-2024 Episodic Other non-traumatic joint disorders (2 sources) Patellar clunk syndrome; Translations: [Other specified joint [...] by health care provider] Onset: 5 Episodic Unclassified (14 sources) History Panniculectomy 03-19-2022 Unclassified (14 sources) history of stomach surgery 03-19-2022 Results Test Name Value Interpretation Reference Range Facility Internal Medicine Office [facility] 06-19-2025 Internal Medicine Office Visit [facility] Internal Medicine [address] [place] [address] [place] [address] OFFICE VISIT Date of Service: 06/19/25 MR#: [id number] Acct: [id number] Name: KARYN GONSALES Rep #: [id number] : 1950 Provider: Dr. Miranda barba MD Age/Sex: 75/F Location[place] [facility] Status: Signed Intake Vital Signs 03/13/25 08:23 06/05/25 05:27 06/19/25 08:37 Height 5 ft 2 in 5 ft 2 in 5 ft 2 in Weight: 150 lb BMI 27.4 BP 118/72 Blood Pressure Location Lt brachial Position Sitting Respiration 16 Pulse 89 Pulse Source Monitor Temp 97.6 F L Temp Source Temporal Pulse Oximetry (%) 99 Oxygen Delivery Method room air Intake Visit Reasons: 3 M FU Chief Complaint: 3m Follow-up Accompanied by: Self Is patient in pain?: Yes (back / left leg) Pain scale (1-10): 8 Allergies prochlorperazine (From Compazine) Allergy (Verified 06/19/25 08:30) Other NSAIDS (Non-Steroidal Anti-Inflamma Adverse Reaction (Verified 06/19/25 08:30) Upset Stomach Medications ???Medication ???Instructions ???Recorded ???Confirmed ???Type blood sugar diagnostic (Accu-Chek #200 ea 10/25/24 06/19/25 Rx Guide test strips) blood sugar diagnostic (Blood #100 ea 10/25/24 06/19/25 Rx Glucose Test strips) blood-glucose meter (Blood Glucose #1 ea 10/25/24 06/19/25 Rx Monitoring kit) lancets 17 gauge (Acti-Sid #300 ea 10/25/24 06/19/25 Rx Lancets) glimepiride 2 mg tablet 2 mg PO QAM #90 tabs 03/20/2506/01 Rx metformin 1,000 mg tablet 1,000 mg PO DAILY #90 tabs 5 06/19/25 Rx rosuvastatin 10 mg tablet 10 mg PO DAILY #90 tabs 03/20/25 1 Rx potassium chloride 10 mEq See Rx Instructions .Route 06/19/25 Rx tablet,extended release .COMPLEX #90 tabs hydrocodone-acetaminop hen 5-325mg 1 tab PO Q6H PRN PRN Pain 3 days 06/05/25 06/19/25 Rx 5mg-325mg #12 TABLETS ondansetron 4 mg disintegrating 4 mg PO Q8H PRN PRN Nausea #10 tab s 06/05/25 06/19/25 Rx tablet hydrochlorothiazide 12.5 mg capsule See Rx Instructions .Route 03/2406/19/25 Rx .COMPLEX #90 caps cholecalciferol (vitamin D3) 1,250 See Rx Instructions .Route 06/1906/19/25 Rx mcg (50,000 unit) capsule .COMPLEX #12 caps cyanocobalamin (vitamin B-12) See Rx Instructions .Route 5 06/19/25 Rx 1,000 mcg/mL injection solution .COMPLEX #10 mL duloxetine 20 mg capsule,delayed 20 mg PO QHS #30 caps 06/19/25 Rx release ferrous sulfate 325 mg (65 mg 325 mg PO Q OTHER DAY #90 tabs 06/19/25 Rx iron) tablet ramipril 5 mg capsule 5 mg PO DAILY #90 CAPSULES 5 06/19/25 Rx Have you fallen in the past year?: No PFSH Medical History Lumbar radiculopathy Overweight (BMI 25.0-29.9) [...] participate in: none HPI HPI Chief Complaint: 3m Follow-up Details: KARYN GONSALES, is a 75-year-old female with a history of back pain, presenting for evaluation of acute back pain radiating to the hip and thigh, as well as concerns about elevated HbA1c. The patient reports the onset of acute back pain in early May, which awakens her from sleep and radiates from the waist to the hip and down to the top of the thigh. The pain is described as severe, affecting her ability to function and is different from p (more content not included)... [facility] Relevant diagnostic tests/la boratory data Narrativeon 06-09-2025 Fall risk assessment no [employer] Work Phone: MEDS REVIEW Done [employer] Work Phone: MEDS REVIEWD Medications reviewed without changes [employer] Work Phone: 12 Lead EKGon 06-05-2025 12 Lead EKG [facility] Cardiovascular Services [address] [place] [address] 12 Lead EKG 06/05/25 0756 MR#: [id number] Acct: [id number] Name: KARYN GONSALES Rep #: [id number] : 1950 75 From: Arie Lin MD Attending Dr: Status: DEP ER Ordering Dr: Edie Treviño DO Date: 06/05/25 Location: ED Sex: F C Admitted: Test Reason : CHEST PRESSURE Blood Pressure : */* mmHG Vent. Rate : 72 BPM Atrial Rate : 72 BPM P-R Int : 150 ms QRS Dur : 78 ms QT Int : 418 ms P-R-T Axes : 23 26 39 degrees QTcB Int : 457 ms Normal sinus rhythm Normal ECG Confirmed by ARIE LIN MD ([id number]), supervising editor trailer AJAY GHOTRA ([id number]) on 06/07/2025 1:19:40 PM Referred By: LINDSAY Confirmed By: ARIE LIN MD 06/07/25 0969 Date Arie Lin MD CC: Dr. Edie Treviño DO; Dr. Miranda Hester MD Signed [facility] Anion gap in Serum or Plasma Ordered By: Edie Treviño on 06-05-2025 Anion gap [Moles/Vol] 16 mmol/L High -15 [facility] BUN/creatinine ratioOrdered By: Edie Treviño on 06-05-2025 Urea nitrogen/Creatinine [Mass ratio] 28.9 mg/mg High 06-19 [facility] Basic Metabolic Profile (BMP )on 06-05-2025 BUN/CRE 28.9 RATIO High 06-19 [facility] Comment on above: Performed By: #### L 500.4100, L100.0100, L502.0250, L506.1000, L500.4050, L503.0105 #### [facility] [address] [place], [address] Calcium [Mass/Vol] 9.3 mg/dL Normal 7.6-11.0 [facility] Comment on above: Performed By: #### L 500.4100, L100.0100, L502.0250, L506.1000, L500.4050, L503.0105 #### [facility] [address] [place], [address] Chloride [Moles/Vol] 102 mmol/L Normal 98-108 [facility] Comment on above: Performed By: #### L 500.4100, L100.0100, L502.0250, L506.1000, L500.4050, L503.0105 #### [facility] [address] [place], [address] CO2 [Moles/Vol] 19.0 mmol/L Low 21.0-32.0 [facility] Comment on above: Performed By: #### L 500.4100, L100.0100, L502.0250, L506.1000, L500.4050, L503.0105 #### [facility] [address] [place], [address] Creatinine [Mass/Vol] 0.81 mg/dL Normal 0.70-1.20 [facility] Comment on above: Performed By: #### L 500.4100, L100.0100, L502.0250, L506.1000, L500.4050, L503.0105 #### [facility] [address] [place], [address] GAP 16 High 5-15 [facility] Comment on above: Performed By: #### L 500.4100, L100.0100, L502.0250, L506.1000, L500.4050, L503.0105 #### [facility] [address] [place], [address] GFR/1.73 sq M.predicted among non-blacks MDRD (S/P/Bld) [Vol rate/Area] 75 mL/min/{1.73_m2} Normal >60 [facility] Comment on above: Result Comment: mL/m in/1.73m2 CKD-EPI Creatinine Equation (2020) Performed By: #### L 500.4100, L100.0100, L502.0250, L506.1000, L500.4050, L503.0105 #### [facility] [address] [place], [address] Glucose [Mass/Vol] 108 mg/dL High 70-99 [facility] Comment on above: Performed By: #### L 500.4100, L100.0100, L502.0250, L506.1000, L500.4050, L503.0105 #### [facility] [address] [place], [address] Potassium [Moles/Vol] 4.3 mmol/L Normal 3.3-5.1 [facility] Comment on above: Performed By: #### L 500.4100, L100.0100, L502.0250, L506.1000, L500.4050, L503.0105 #### [facility] [address] [place], [address] Sodium [Moles/Vol] 137 mmol/L Normal 133-145 [facility] Comment on above: Performed By: #### L 500.4100, L100.0100, L502.0250, L506.1000, L500.4050, L503.0105 #### [facility] [address] [place], [address] Urea nitrogen [Mass/Vol] 23 mg/dL High 4-19 [facility] Comment on above: Performed By: #### L 500.4100, L100.0100, L502.0250, L506.1000, L500.4050, L503.0105 #### [facility] [address] [place], [address] CPK Total, Creatine Kinaseon 06-05-2025 CPK TOTAL 81 U/L Normal 24-195 [facility] Comment on above: Performed By: #### L 500.4100, L100.0100, L502.0250, L506.1000, L500.4050, L503.0105 #### [facility] [address] [place], [address] Carbon dioxide, total [Moles /volume] in Central venous bloodOrdered By: Edie Treviño on 06-05-2025 CO2 [Moles/Vol] 19.0 mmol/L Low 21.0-32.0 [facility] Chloride assayOrdered By: Betty Treviño on 06-05-2025 Chloride [Moles/Vol] 102 mmol/L 98-108 [facility] Emergency Department Summary on 06-05-2025 Emergency Department Summary [facility] Medical Records Department [address] [place] [address] Emergency Department Summary 06/05/25 MR#: [id number] Acct: [id number] Name: PHILIPPERENKARYN IVET Rep #: [id number] : 1950 75 From: Edie Treviño DO PCP: Dr. Miranda Hester MD Status:REG ER Location: ED HPI History of Present Illness Chief Complaint: Back Informant: patient Narrative Narrative: Patient is a 75-year-old female with history of 2 lumbar spinal surgeries (performed with Dr. Perales at the [facility]), diabetes mellitus, hypertension, prior bariatric surgery, presenting for increased pain of her left thigh. Patient states for the past week she has had increased pain. She denies any trauma or injury. She denies any falls. States she does not have any numbness. States the pain starts at her proximal thigh and goes to her knee. She cannot sleep because of the pain. She has had dry heaves and nausea because of the pain. She has an appointment to see Dr. Remy on the of this week and will call to see if she get in sooner. She states she did not like to do because of the pain so she came for further evaluation. She notes that if she presses on her thigh she will feel the pain radiate up. Denies any overlying skin changes or rash. Denies any fever or chills. Nuys any bowel or bladder incontinence. States this feels different than her prior lumbar radiculopathy is requiring surgery because it does not radiate down further and she does not have any numbness. [facility] Medical History Lumbar radiculopathy Overweight [...] Medications ???Medication ???Instructions ???Recorded ???Last Taken ???Type cyanocobalamin (vitamin B-12) See Rx Instructions .Route 5 Unknown Rx 1,000 mcg/mL injection solution .COMPLEX #10 mL hydrochlorothiazide 12.5 mg capsule See Rx Instructions .Route 11/22 Unknown Rx .COMPLEX #90 caps blood sugar diagnostic (Accu-Chek #200 ea 10/25/24 Unknown Rx Guide test strips) blood sugar diagnostic (Blood #100 ea 10/25/24 Unknown Rx Glucose Test strips) blood-glucose meter (Blood Glucose #1 ea 10/25/24 Unknown Rx Monitoring kit) lancets 17 gauge (Acti-Sid #300 ea 10/25/24 Unknown Rx Lancets) ferrous sulfate 325 mg (65 mg 325 mg PO Q OTHER DAY #90 tabs 06/24 Unknown Rx iron) tablet cholecalciferol (vitamin D3) 1,250 See Rx Instructions .Route 03/20 Unknown Rx mcg (50,000 unit) capsule .COMPLEX #12 caps glimepiride 2 mg tablet 2 mg PO QAM #90 tabs 03/20/25 Unkn own Rx metformin 1,000 mg tablet 1,000 mg PO DAILY #90 tabs 5 Unknown Rx ramipril 5 mg capsule 5 mg PO DAILY #90 CAPSULES 5 Unknown Rx rosuvastatin 10 mg tablet 10 mg PO DAILY #90 tabs 03/20/25 U nknown Rx potassium chloride 10 mEq See Rx Instructions .Route 5 Unknown Rx tablet,extended release .COMPLEX #90 tabs hydrocodone-acetaminop hen 5-325mg 1 tab PO Q6H PRN PRN Pain 3 days 06/05/25 Unknown Rx 5mg-325mg #12 TABLETS ondansetron 4 mg disintegrating 4 mg PO Q8H PRN PRN Nausea #10 tab s 06/05/25 Unknown Rx tablet Allergy/AdvReac Type Severity Reaction Status Date / Time prochlorperazine (From Allergy Other Verified 06/05/25 05:26 Compazine) NSAIDS (Non-Steroidal AdvReac Upset Verified 06/05/25 05:26 Anti-Inflamma Stomach Family History Mother Cancer Pancreatic cancer Diabetes Depression Sister Cancer Lung cancer Father Colon cancer Heart disease Myocardial infarction Hypertension CVA (cerebral vascular accident) Sister Cancer Kidney cancer Thyroid disorder Other Anxiety Surgical History S/P lumbar fusion History of back surgery History of revision of total knee arthroplasty History Panniculectomy History of left cataract surgery History of partial mastectomy of left breast History of breast reconstruction history of stomach surgery History of cholecystectomy H/O tubal ligation History of gastric bypass Social History Smoking Status: Never smoker second hand exposure: No alcohol intake: ne (more content not included)... Normal [facility] Glomerular filtration rate ( GFR) estimation/1.73 sq m using serum, plasma, or whole bOrdered By: Edie Treviño on 06-05-2025 GFR/1.73 sq M.predicted among non-blacks MDRD (S/P/Bld) [Vol rate/Area] 75 mL/min/{1.73_m2} >60 [facility] Comment on above: mL/min/1.73m2 CKD-EP I Creatinine Equation (2020) L501.4021on 06-05-2025 Trop T High Sen 10 ng/L Normal <=14 [facility] Comment on above: Performed By: #### L 500.4100, L100.0100, L502.0250, L506.1000, L500.4050, L503.0105 #### [facility] [address] [place], [place], [id number] Magnesiumon 06-05-2025 Magnesium [Mass/Vol] 2.2 mg/dL Normal 1.5-2.2 [facility] Comment on above: Performed By: #### L 500.4100, L100.0100, L502.0250, L506.1000, L500.4050, L503.0105 #### [facility] [address] [place], [address] Magnesium measurement (mass/ volume)Ordered By: Edie Treviño on 06-05-2025 Magnesium (Unsp spec) [Mass/Vol] 2.2 mg/dL 1.5-2.2 [facility] Potassium measurement (mass/ volume)Ordered By: Edie Treviño on 06-05-2025 Potassium (Unsp spec) [Mass/Vol] 4.3 mmol/L 3.3-5.1 [facility] Serum creatinine measurement (mass/volume)Ordered By: Edie Treviño on 06-05-2025 Creatinine [Mass/Vol] 0.81 mg/dL 0.70-1.20 [facility] Serum glucose measurement (m ass/volume)Ordered By: Edie Treviño on 06-05-2025 Glucose [Mass/Vol] 108 mg/dL High 70-99 [facility] Serum or plasma calcium zarina urement (mass/volume)Ordered By: Edie Treviño on 06-05-2025 Calcium [Mass/Vol] 9.3 mg/dL 7.6-11.0 [facility] Serum or plasma creatine kin ase activityOrdered By: Edie Treviño on 06-05-2025 CK [Catalytic activity/Vol] 81 U/L 24-195 [facility] Serum or plasma urea nitroge n measurement (mass/volume)Ordered By: Edie Treviño on 06-05-2025 Urea nitrogen [Mass/Vol] 23 mg/dL High 4-19 [facility] Sodium levelOrdered By: Rosa M Treviño on 06-05-2025 Sodium [Moles/Vol] 137 mmol/L 133-145 [facility] Troponin T HS 2 HRon 025 Trop T High Sen 11 ng/L Normal <=14 [facility] Comment on above: Performed By: #### L 500.4100, L100.0100, L502.0250, L506.1000, L500.4050, L503.0105 #### [facility] [address] [place], [place], [id number] Troponin T HS 4 HRon 025 Trop T High Sen Normal <=14 [facility] Comment on above: Result Comment: SEG[facility] DISCHARGED Performed By: #### L 500.4100, L100.0100, L502.0250, L506.1000, L500.4050, L503.0105 #### [facility] [address] [place], [place], [id number] Troponin T.cardiac [Mass/vol ume] in Serum or Plasma by High sensitivity methodOrdered By: Dariel Kohler on 06-05-2025 Troponin T.cardiac High sensitivity method [Mass/Vol] 11 ng/L <14 [facility] Troponin T.cardiac High sensitivity method [Mass/Vol] 10 ng/L <14 [facility] Relevant diagnostic tests/la boratory data Narrativeon 03-24-2025 Fall risk assessment yes [employer] Work Phone: MEDS REVIEW Documentation of current medications (procedure) [employer] Work Phone: MEDS REVIEWD Medications reviewed with changes [employer] Work Phone: Absolute lymphocyte countOrd ered By: Miranda Hester on 03-14-2025 Lymphocytes Auto (Unsp spec) [#/Vol] 2.14 10*3/uL 0.83-4.51 [facility] Absolute neutrophil countOrd ered By: Miranda Hester on 03-14-2025 Neutrophils (Bld) [#/Vol] 3.7 10*3/uL 2.0-7.7 [facility] Anion gap in Serum or Plasma Ordered By: Miranda Hester on 03-14-2025 Anion gap [Moles/Vol] 13 mmol/L 01-12 [facility] Automated lymphocyte count a s percentage of total leukocytesOrdered By: Miranda Hester on 03-14-2025 Lymphocytes/100 WBC Auto (Unsp spec) 31.9 % 19-41 [facility] BUN/creatinine ratioOrdered By: Miranda Hester on 03-14-2025 Urea nitrogen/Creatinine [Mass ratio] 21.0 mg/mg High 10-20 [facility] Basophil percentageOrdered B y: Miranda Hester on 03-14-2025 Basophils/100 WBC (Bld) 0.6 % 0-1 [facility] Bilirubin, totalOrdered By: Miranda Hester on 03-14-2025 Bilirubin [Mass/Vol] 0.31 mg/dL 0.00-1.30 [facility] CBC W/Diff, Automatedon 02-28 Absolute Lymph 2.14 X10 3/uL Normal 0.83-4.51 [facility] Comment on above: Performed By: #### L 500.4100, L100.0100, L502.0250, L506.1000, L500.4050, L503.0105 #### [facility] [address] [place], [address] Absolute Neut 3.7 X10 3/uL Normal 2.0-7.7 [facility] Comment on above: Performed By: #### L 500.4100, L100.0100, L502.0250, L506.1000, L500.4050, L503.0105 #### [facility] [address] [place], [address] Basophils/100 WBC (Bld) 0.6 % Normal 0-1 [facility] Comment on above: Performed By: #### L 500.4100, L100.0100, L502.0250, L506.1000, L500.4050, L503.0105 #### [facility] [address] [place], [address] Eosinophils/100 WBC (Bld) 3.1 % Normal 0-5 [facility] Comment on above: Performed By: #### L 500.4100, L100.0100, L502.0250, L506.1000, L500.4050, L503.0105 #### [facility] [address] [place], [address] Erythrocyte distribution width (RBC) [Ratio] 17.2 % High 11.6-14.6 [facility] Comment on above: Performed By: #### L 500.4100, L100.0100, L502.0250, L506.1000, L500.4050, L503.0105 #### [facility] [address] [place], [address] Hematocrit (Bld) [Volume fraction] 38.1 % Normal 37-47 [facility] Comment on above: Performed By: #### L 500.4100, L100.0100, L502.0250, L506.1000, L500.4050, L503.0105 #### [facility] [address] [place], [address] Hemoglobin (Bld) [Mass/Vol] 11.7 g/dL Low 12.0-15.0 [facility] Comment on above: Performed By: #### L 500.4100, L100.0100, L502.0250, L506.1000, L500.4050, L503.0105 #### [facility] [address] [place], [address] IG% 0.400 Normal 0.0-0.9 [facility] Comment on above: Result Comment: IG% - Immature Granulocytes (promyelocytes, myelocytes and metamyelocytes) > 1% indicates that a LEFT SHIFT is Present. Performed By: #### L 500.4100, L100.0100, L502.0250, L506.1000, L500.4050, L503.0105 #### [facility] [address] [place], [address] Lymphocytes/100 WBC (Bld) 31.9 % Normal 19-41 [facility] Comment on above: Performed By: #### L 500.4100, L100.0100, L502.0250, L506.1000, L500.4050, L503.0105 #### [facility] [address] [place], [address] MCH (RBC) [Entitic mass] 24.8 pg Low 27.0-32.0 [facility] Comment on above: Performed By: #### L 500.4100, L100.0100, L502.0250, L506.1000, L500.4050, L503.0105 #### [facility] [address] [place], [address] MCHC (RBC) [Mass/Vol] 30.7 g/dL Low 32-36 [facility] Comment on above: Performed By: #### L 500.4100, L100.0100, L502.0250, L506.1000, L500.4050, L503.0105 #### [facility] [address] [place], [address] MCV (RBC) [Entitic vol] 80.7 fL Low 81-99 [facility] Comment on above: Performed By: #### L 500.4100, L100.0100, L502.0250, L506.1000, L500.4050, L503.0105 #### [facility] [address] [place], [address] Monocytes/100 WBC (Bld) 8.2 % Normal 0-10 [facility] Comment on above: Performed By: #### L 500.4100, L100.0100, L502.0250, L506.1000, L500.4050, L503.0105 #### [facility] [address] [place], [address] Neutrophils/100 WBC (Bld) 55.8 % Normal 47-70 [facility] Comment on above: Performed By: #### L 500.4100, L100.0100, L502.0250, L506.1000, L500.4050, L503.0105 #### [facility] [address] [place], [address] Nucleated RBC (Bld) [#/Vol] 0 10*3/uL Normal 0-5 [facility] Comment on above: Performed By: #### L 500.4100, L100.0100, L502.0250, L506.1000, L500.4050, L503.0105 #### [facility] [address] [place], [address] Platelet mean volume (Bld) [Entitic vol] 9.5 fL Normal 6.2-12.0 [facility] Comment on above: Performed By: #### L 500.4100, L100.0100, L502.0250, L506.1000, L500.4050, L503.0105 #### [facility] [address] [place], [address] Platelets (Bld) [#/Vol] 308 10*3/uL Normal 150-450 [facility] Comment on above: Performed By: #### L 500.4100, L100.0100, L502.0250, L506.1000, L500.4050, L503.0105 #### [facility] [address] [place], [address] RBC (Bld) [#/Vol] 4.72 10*6/uL Normal 4.2-5.4 [facility] Comment on above: Performed By: #### L 500.4100, L100.0100, L502.0250, L506.1000, L500.4050, L503.0105 #### [facility] [address] [place], [address] RDW SD 50.4 fl High 35.1-43.9 [facility] Comment on above: Performed By: #### L 500.4100, L100.0100, L502.0250, L506.1000, L500.4050, L503.0105 #### [facility] [address] [place], [address] WBC (Bld) [#/Vol] 6.7 10*3/uL Normal 4.4-11.0 [facility] Comment on above: Performed By: #### L 500.4100, L100.0100, L502.0250, L506.1000, L500.4050, L503.0105 #### [facility] [address] [place], [address] Carbon dioxide, total [Moles /volume] in Central venous bloodOrdered By: Miranda Hester on 03-14-2025 CO2 [Moles/Vol] 23.3 mmol/L 21.0-32.0 [facility] Chloride assayOrdered By: Cesar kathryn Nathanradha on 03-14-2025 Chloride [Moles/Vol] 103 mmol/L 98-108 [facility] Comprehensive Metabolic Prof ilon 03-14-2025 Albumin [Mass/Vol] 4.4 g/dL Normal 3.4-4.8 [facility] Comment on above: Performed By: #### L 500.4100, L100.0100, L502.0250, L506.1000, L500.4050, L503.0105 #### [facility] [address] [place], [address] Albumin/Globulin [Mass ratio] 1.3 {ratio} Normal 0.9-2.4 [facility] Comment on above: Performed By: #### L 500.4100, L100.0100, L502.0250, L506.1000, L500.4050, L503.0105 #### [facility] [address] [place], [address] ALK PHOS 79 U/L Normal 35-104 [facility] Comment on above: Performed By: #### L 500.4100, L100.0100, L502.0250, L506.1000, L500.4050, L503.0105 #### [facility] [address] [place], [address] ALT [Catalytic activity/Vol] 22 U/L Normal <=34 [facility] Comment on above: Performed By: #### L 500.4100, L100.0100, L502.0250, L506.1000, L500.4050, L503.0105 #### [facility] [address] [place], [address] AST [Catalytic activity/Vol] 31 U/L Normal <=31 [facility] Comment on above: Performed By: #### L 500.4100, L100.0100, L502.0250, L506.1000, L500.4050, L503.0105 #### [facility] [address] [place], [address] Bilirubin [Mass/Vol] 0.31 mg/dL Normal 0.00-1.30 [facility] Comment on above: Performed By: #### L 500.4100, L100.0100, L502.0250, L506.1000, L500.4050, L503.0105 #### [facility] [address] [place], [address] BUN/CRE 21.0 RATIO High 10-20 [facility] Comment on above: Performed By: #### L 500.4100, L100.0100, L502.0250, L506.1000, L500.4050, L503.0105 #### [facility] [address] [place], [address] Calcium [Mass/Vol] 9.8 mg/dL Normal 7.6-11.0 [facility] Comment on above: Performed By: #### L 500.4100, L100.0100, L502.0250, L506.1000, L500.4050, L503.0105 #### [facility] [address] [place], [address] Chloride [Moles/Vol] 103 mmol/L Normal 98-108 [facility] Comment on above: Performed By: #### L 500.4100, L100.0100, L502.0250, L506.1000, L500.4050, L503.0105 #### [facility] [address] [place], [address] CO2 [Moles/Vol] 23.3 mmol/L Normal 21.0-32.0 [facility] Comment on above: Performed By: #### L 500.4100, L100.0100, L502.0250, L506.1000, L500.4050, L503.0105 #### [facility] [address] [place], [address] Creatinine [Mass/Vol] 0.83 mg/dL Normal 0.70-1.20 [facility] Comment on above: Performed By: #### L 500.4100, L100.0100, L502.0250, L506.1000, L500.4050, L503.0105 #### [facility] [address] [place], [address] GAP 13 Normal 5-15 [facility] Comment on above: Performed By: #### L 500.4100, L100.0100, L502.0250, L506.1000, L500.4050, L503.0105 #### [facility] [address] [place], [address] GFR/1.73 sq M.predicted among non-blacks MDRD (S/P/Bld) [Vol rate/Area] 73 mL/min/{1.73_m2} Normal >60 [facility] Comment on above: Result Comment: mL/m in/1.73m2 CKD-EPI Creatinine Equation (2020) Performed By: #### L 500.4100, L100.0100, L502.0250, L506.1000, L500.4050, L503.0105 #### [facility] [address] [place], [address] Globulin (S) [Mass/Vol] 3.3 g/dL Normal 2.2-4.2 [facility] Comment on above: Performed By: #### L 500.4100, L100.0100, L502.0250, L506.1000, L500.4050, L503.0105 #### [facility] [address] [place], [address] Glucose [Mass/Vol] 107 mg/dL High 70-99 [facility] Comment on above: Performed By: #### L 500.4100, L100.0100, L502.0250, L506.1000, L500.4050, L503.0105 #### [facility] [address] [place], [address] Potassium [Moles/Vol] 4.8 mmol/L Normal 3.3-5.1 [facility] Comment on above: Performed By: #### L 500.4100, L100.0100, L502.0250, L506.1000, L500.4050, L503.0105 #### [facility] [address] [place], [address] Sodium [Moles/Vol] 139 mmol/L Normal 133-145 [facility] Comment on above: Performed By: #### L 500.4100, L100.0100, L502.0250, L506.1000, L500.4050, L503.0105 #### [facility] [address] [place], [address] T PROT 7.7 g/dL Normal 5.9-8.4 [facility] Comment on above: Performed By: #### L 500.4100, L100.0100, L502.0250, L506.1000, L500.4050, L503.0105 #### [facility] [address] [place], [address] Urea nitrogen [Mass/Vol] 18 mg/dL Normal 4-19 [facility] Comment on above: Performed By: #### L 500.4100, L100.0100, L502.0250, L506.1000, L500.4050, L503.0105 #### [facility] [address] [place], [address] Eosinophil percentageOrdered By: Miranda Hester on 03-14-2025 Eosinophils/100 WBC (Bld) 3.1 % 0-5 [facility] Erythrocyte distribution wid th ratioOrdered By: Miranda Rangele on 03-14-2025 Erythrocyte distribution width (RBC) [Ratio] 17.2 % High 11.6-14.6 [facility] Erythrocyte distribution wid th standard deviationOrdered By: [facility] Hester on 03-14-2025 Erythrocyte distribution width (RBC) [Ratio] 50.4 fl High 35.1-43.9 [facility] Ferritinon 03-14-2025 Ferritin [Mass/Vol] 24 ng/mL Normal 22-378 [facility] Comment on above: Performed By: #### L 500.4100, L100.0100, L502.0250, L506.1000, L500.4050, L503.0105 #### [facility] [address] [place], [place] [address] [place], [place], [id number] Glomerular filtration rate ( GFR) estimation/1.73 sq m using serum, plasma, or whole bOrdered By: savitaylorsvillesunny Hester on 03-14-2025 GFR/1.73 sq M.predicted among non-blacks MDRD (S/P/Bld) [Vol rate/Area] 73 mL/min/{1.73_m2} >60 [facility] Comment on above: mL/min/1.73m2 CKD-EP I Creatinine Equation (2020) Hematocrit Auto (Bld) [Volum e fraction]Ordered By: Miranda Hester on 03-14-2025 Hematocrit (Bld) [Volume fraction] 38.1 % 37-47 [facility] Hemoglobin measurementOrdere d By: Miranda Hester on 03-14-2025 Hemoglobin (Bld) [Mass/Vol] 11.7 g/dL Low 12.0-15.0 [facility] Immature granulocytes/100 WB C Auto (Bld)Ordered By: kathryn Hester on 03-14-2025 Immature granulocytes/100 WBC (Bld) 0.400 % 0.0-0.9 [facility] Comment on above: IG% - Immature Granu locytes (promyelocytes, myelocytes and metamyelocytes) > 1% indicates that a LEFT SHIFT is Present. Iron measurement (mass/mass) Ordered By: Miranda Hester on 03-14-2025 Iron (Unsp spec) [Mass/Mass] 42 ug/dL Low 50-170 [facility] Iron+Iron Binding Capacityon 03-14-2025 TIBC 466 ug/dL High 250-450 [facility] Comment on above: Performed By: #### L 500.4100, L100.0100, L502.0250, L506.1000, L500.4050, L503.0105 #### [facility] [address] [place], [address] Laboratory - Chemistry and C hemistry - challengeOrdered By: Miranda Hester on 03-14-2025 AST [Catalytic activity/Vol] 31 U/L <32 [facility] MCV (mean corpuscular volume ) determinationOrdered By: Miranda Hester on 03-14-2025 MCV (RBC) [Entitic vol] 80.7 fL Low 81-99 [facility] Mean corpuscular hemoglobin (MCH) determinationOrdered By: Miranda Hester on 03-14-2025 MCH (RBC) [Entitic mass] 24.8 pg Low 27.0-32.0 [facility] Mean corpuscular hemoglobin concentration (MCHC) determinationOrdered By: Miranda Hester on 03-14-2025 MCHC (RBC) [Mass/Vol] 30.7 g/dL Low 32-36 [facility] Mean platelet volume determi nationOrdered By: kathryn Hester on 03-14-2025 Platelet mean volume (Bld) [Entitic vol] 9.5 fL 6.2-12.0 [facility] Monocyte percentageOrdered B y: Miranda Hester on 03-14-2025 Monocytes/100 WBC (Bld) 8.2 % 0-10 [facility] Neutrophil percentageOrdered By: Miranda Hester on 03-14-2025 Neutrophils/100 WBC (Bld) 55.8 % 47-70 [facility] No Panel InformationOrdered By: Miranda Hester on 03-14-2025 Unsaturated Iron Binding Capacity 424 ug/dL 228-428 [facility] Nucleated red blood cell per centageOrdered By: Miranda Hester on 03-14-2025 Nucleated RBC/100 WBC (Bld) [Ratio] 0 % 0-5 [facility] Platelet countOrdered By: Cesar Hester on 03-14-2025 Platelets (Bld) [#/Vol] 308 10*3/uL 150-450 [facility] Potassium measurement (mass/ volume)Ordered By: Miranda Hester on 03-14-2025 Potassium (Unsp spec) [Mass/Vol] 4.8 mmol/L 3.3-5.1 [facility] RBC Auto (Bld) [#/Vol]Ordere d By: Miranda Hester on 03-14-2025 RBC (Bld) [#/Vol] 4.72 10*6/uL 4.2-5.4 [facility] Serum creatinine measurement (mass/volume)Ordered By: Miranda Hester on 03-14-2025 Creatinine [Mass/Vol] 0.83 mg/dL 0.70-1.20 [facility] Serum globulin measurementOr dered By: Miranda Hester 03-14-2025 Globulin (S) [Mass/Vol] 3.3 g/dL 2.2-4.2 [facility] Serum glucose measurement (m ass/volume)Ordered By: Miranda Hester on 03-14-2025 Glucose [Mass/Vol] 107 mg/dL High 70-99 [facility] Serum or plasma alanine joshi otransferase (ALT) measurementOrdered By: Miranda Hester 03-14-2025 ALT [Catalytic activity/Vol] 22 U/L <35 [facility] Serum or plasma albumin zarina urement (mass/volume)Ordered By: Miranda Hester 03-14-2025 Albumin [Mass/Vol] 4.4 g/dL 3.4-4.8 [facility] Serum or plasma albumin/glob ulin mass ratioOrdered By: Miranda Hester on 03-14-2025 Albumin/Globulin [Mass ratio] 1.3 {ratio} 0.9-2.4 [facility] Serum or plasma alkaline onesimo sphatase measurementOrdered By: Miranda Hester on 03-14-2025 ALP [Catalytic activity/Vol] 79 U/L 35-104 [facility] Serum or plasma calcium zarina urement (mass/volume)Ordered By: Miranda Hester on 03-14-2025 Calcium [Mass/Vol] 9.8 mg/dL 7.6-11.0 [facility] Serum or plasma ferritin luly surement (mass/volume)Ordered By: Miranda Hester on 03-14-2025 Ferritin [Mass/Vol] 24 ng/mL 22-378 [facility] Serum or plasma iron saturat ion measurement (mass fraction)Ordered By: Miranda Hester 03-14-2025 Iron saturation [Mass fraction] 9.0 % Low 13-59 [facility] Serum or plasma urea nitroge n measurement (mass/volume)Ordered By: Miranda Hester 03-14-2025 Urea nitrogen [Mass/Vol] 18 mg/dL 4-19 [facility] Sodium levelOrdered By: Leon Hester on 03-14-2025 Sodium [Moles/Vol] 139 mmol/L 133-145 [facility] Total proteinOrdered By: Jeff Hester 03-14-2025 Protein [Mass/Vol] 7.7 g/dL 5.9-8.4 [facility] White blood cell (WBC) count Ordered By: Miranda Hester on 03-14-2025 WBC (Bld) [#/Vol] 6.7 10*3/uL 4.4-11.0 [facility] Internal Medicine Office Vis santhosh 03-13-2025 Internal Medicine Office Visit [facility] [address] [place] [address] [address] [place], [place] [address] OFFICE VISIT Date of Service: 03/13/25 MR#: [id number] Acct: [id number] Name: KARYN GONSALES Rep #: [id number] : 1950 Provider: Dr. Miranda barba MD Age/Sex: 75/F Location[place] [facility] Status: Signed Intake Vital Signs 12/05/24 08:52 03/13/25 08:23 Height 5 ft 1 in 5 ft 2 in Weight: 147 lb 6 oz BMI 26.9 BP 120/70 Blood Pressure Location Rt brachial Position Sitting Respiration 16 Pulse 80 Pulse Source Monitor Temp 97.6 F L Temp Source Temporal Pulse Oximetry (%) 98 Intake Visit Reasons: 3 m fu Chief Complaint: Follow-up Clinician Oncology Required: No Accompanied by: Self Is patient in pain?: No Allergies prochlorperazine (From Compazine) Allergy (Verified 03/13/25 08:25) Other NSAIDS (Non-Steroidal Anti-Inflamma Adverse Reaction (Verified 03/13/25 08:25) Upset Stomach Medications ???Medication ???Instructions ???Recorded ???Confirmed ???Type potassium chloride 10 mEq See Rx Instructions .Route 03/13/25 Rx tablet,extended release .COMPLEX #90 tabs [...] Nurse's Note: F/U concern for low iron PFSH Medical History Lumbar radiculopathy Overweight (BMI 25.0-29.9) [...] are stable. (more content not included)... Normal [facility] - Hematology and Cell countsOrdered By: Miranda Hester on 03-13-2025 HbA1c (Bld) [Mass fraction] 6.5 % High 4.2-6.3 [facility] Absolute lymphocyte countOrd ered By: kathryn Hester on 01-18-2025 Lymphocytes Auto (Unsp spec) [#/Vol] 2.24 10*3/uL 0.83-4.51 [facility] Absolute neutrophil countOrd ered By: savitaylorsvillesunny Evansservando on 01-18-2025 Neutrophils (Bld) [#/Vol] 5.1 10*3/uL 2.0-7.7 [facility] Automated lymphocyte count a s percentage of total leukocytesOrdered By: Miranda Hester on 01-18-2025 Lymphocytes/100 WBC Auto (Unsp spec) 27.5 % 19-41 [facility] Basophil percentageOrdered B y: Leonroelsunny Hester on 01-18-2025 Basophils/100 WBC (Bld) 0.7 % 0-1 [facility] CBC W/Diff, Automatedon 12-30 Absolute Lymph 2.24 X10 3/uL Normal 0.83-4.51 [facility] Comment on above: Performed By: #### L 500.4100, L100.0100, L502.0250, L506.1000, L500.4050, L503.0105 #### [facility] [address] [place], [place], [address] Absolute Neut 5.1 X10 3/uL Normal 2.0-7.7 [facility] Comment on above: Performed By: #### L 500.4100, L100.0100, L502.0250, L506.1000, L500.4050, L503.0105 #### [facility] [address] [place], [address] Basophils/100 WBC (Bld) 0.7 % Normal 0-1 [facility] Comment on above: Performed By: #### L 500.4100, L100.0100, L502.0250, L506.1000, L500.4050, L503.0105 #### [facility] [address] [place], [address] Eosinophils/100 WBC (Bld) 1.8 % Normal 0-5 [facility] Comment on above: Performed By: #### L 500.4100, L100.0100, L502.0250, L506.1000, L500.4050, L503.0105 #### [facility] [address] [place], [address] Erythrocyte distribution width (RBC) [Ratio] 15.6 % High 11.6-14.6 [facility] Comment on above: Performed By: #### L 500.4100, L100.0100, L502.0250, L506.1000, L500.4050, L503.0105 #### [facility] [address] [place], [address] Hematocrit (Bld) [Volume fraction] 33.4 % Low 37-47 [facility] Comment on above: Performed By: #### L 500.4100, L100.0100, L502.0250, L506.1000, L500.4050, L503.0105 #### [facility] [address] [place], [address] Hemoglobin (Bld) [Mass/Vol] 10.0 g/dL Low 12.0-15.0 [facility] Comment on above: Performed By: #### L 500.4100, L100.0100, L502.0250, L506.1000, L500.4050, L503.0105 #### [facility] [address] [place], [address] IG% 0.400 Normal 0.0-0.9 [facility] Comment on above: Result Comment: IG% - Immature Granulocytes (promyelocytes, myelocytes and metamyelocytes) > 1% indicates that a LEFT SHIFT is Present. Performed By: #### L 500.4100, L100.0100, L502.0250, L506.1000, L500.4050, L503.0105 #### [facility] [address] [place], [address] Lymphocytes/100 WBC (Bld) 27.5 % Normal 19-41 [facility] Comment on above: Performed By: #### L 500.4100, L100.0100, L502.0250, L506.1000, L500.4050, L503.0105 #### [facility] [address] [place], [address] MCH (RBC) [Entitic mass] 24.8 pg Low 27.0-32.0 [facility] Comment on above: Performed By: #### L 500.4100, L100.0100, L502.0250, L506.1000, L500.4050, L503.0105 #### [facility] [address] [place], [address] MCHC (RBC) [Mass/Vol] 29.9 g/dL Low 32-36 [facility] Comment on above: Performed By: #### L 500.4100, L100.0100, L502.0250, L506.1000, L500.4050, L503.0105 #### [facility] [address] [place], [address] MCV (RBC) [Entitic vol] 82.7 fL Normal 81-99 [facility] Comment on above: Performed By: #### L 500.4100, L100.0100, L502.0250, L506.1000, L500.4050, L503.0105 #### [facility] [address] [place], [address] Monocytes/100 WBC (Bld) 7.1 % Normal 0-10 [facility] Comment on above: Performed By: #### L 500.4100, L100.0100, L502.0250, L506.1000, L500.4050, L503.0105 #### [facility] [address] [place], [address] Neutrophils/100 WBC (Bld) 62.5 % Normal 47-70 [facility] Comment on above: Performed By: #### L 500.4100, L100.0100, L502.0250, L506.1000, L500.4050, L503.0105 #### [facility] [address] [place], [address] Nucleated RBC (Bld) [#/Vol] 0 10*3/uL Normal 0-5 [facility] Comment on above: Performed By: #### L 500.4100, L100.0100, L502.0250, L506.1000, L500.4050, L503.0105 #### [facility] [address] [place], [address] Platelet mean volume (Bld) [Entitic vol] 10.2 fL Normal 6.2-12.0 [facility] Comment on above: Performed By: #### L 500.4100, L100.0100, L502.0250, L506.1000, L500.4050, L503.0105 #### [facility] [address] [place], [address] Platelets (Bld) [#/Vol] 336 10*3/uL Normal 150-450 [facility] Comment on above: Performed By: #### L 500.4100, L100.0100, L502.0250, L506.1000, L500.4050, L503.0105 #### [facility] [address] [place], [address] RBC (Bld) [#/Vol] 4.04 10*6/uL Low 4.2-5.4 [facility] Comment on above: Performed By: #### L 500.4100, L100.0100, L502.0250, L506.1000, L500.4050, L503.0105 #### [facility] [address] [place], [address] RDW SD 46.8 fl High 35.1-43.9 [facility] Comment on above: Performed By: #### L 500.4100, L100.0100, L502.0250, L506.1000, L500.4050, L503.0105 #### [facility] [address] [place], [address] WBC (Bld) [#/Vol] 8.2 10*3/uL Normal 4.4-11.0 [facility] Comment on above: Performed By: #### L 500.4100, L100.0100, L502.0250, L506.1000, L500.4050, L503.0105 #### [facility] [address], [address] Eosinophil percentageOrdered By: Miranda Hester on 01-18-2025 Eosinophils/100 WBC (Bld) 1.8 % 0-5 [facility] Erythrocyte distribution wid th ratioOrdered By: Miranda Hester on 01-18-2025 Erythrocyte distribution width (RBC) [Ratio] 15.6 % High 11.6-14.6 [facility] Erythrocyte distribution wid th standard deviationOrdered By: Miranda Hester on 01-18-2025 Erythrocyte distribution width (RBC) [Ratio] 46.8 fl High 35.1-43.9 [facility] Ferritinon 01-18-2025 Ferritin [Mass/Vol] 11 ng/mL Low 22-378 [facility] Comment on above: Performed By: #### L 500.4100, L100.0100, L502.0250, L506.1000, L500.4050, L503.0105 #### [facility] [address] [place], [address] Hematocrit Auto (Bld) [Volum e fraction]Ordered By: Miranda Hester on 01-18-2025 Hematocrit (Bld) [Volume fraction] 33.4 % Low 37-47 [facility] Hemoglobin measurementOrdere d By: Miranda Hester on 01-18-2025 Hemoglobin (Bld) [Mass/Vol] 10.0 g/dL Low 12.0-15.0 [facility] Immature granulocytes/100 WB C Auto (Bld)Ordered By: kathryn Hester on 01-18-2025 Immature granulocytes/100 WBC (Bld) 0.400 % 0.0-0.9 [facility] Comment on above: IG% - Immature Granu locytes (promyelocytes, myelocytes and metamyelocytes) > 1% indicates that a LEFT SHIFT is Present. Iron measurement (mass/mass) Ordered By: Miranda Hester on 01-18-2025 Iron (Unsp spec) [Mass/Mass] 34 ug/dL Low 50-170 [facility] Iron+Iron Binding Capacityon 01-18-2025 TIBC 457 ug/dL High 250-450 [facility] Comment on above: Performed By: #### L 500.4100, L100.0100, L502.0250, L506.1000, L500.4050, L503.0105 #### [facility] [address] [place], [address] MCV (mean corpuscular volume ) determinationOrdered By: Miranda Hester on 01-18-2025 MCV (RBC) [Entitic vol] 82.7 fL 81-99 [facility] Mean corpuscular hemoglobin (MCH) determinationOrdered By: Miranda Hester on 01-18-2025 MCH (RBC) [Entitic mass] 24.8 pg Low 27.0-32.0 [facility] Mean corpuscular hemoglobin concentration (MCHC) determinationOrdered By: Miranda Hester on 01-18-2025 MCHC (RBC) [Mass/Vol] 29.9 g/dL Low 32-36 [facility] Mean platelet volume determi nationOrdered By: Miranda Hester on 01-18-2025 Platelet mean volume (Bld) [Entitic vol] 10.2 fL 6.2-12.0 [facility] Monocyte percentageOrdered B y: Miranda Hester on 01-18-2025 Monocytes/100 WBC (Bld) 7.1 % 0-10 [facility] Neutrophil percentageOrdered By: Miranda Hester on 01-18-2025 Neutrophils/100 WBC (Bld) 62.5 % 47-70 [facility] No Panel InformationOrdered By: Miranda Hester on 01-18-2025 Unsaturated Iron Binding Capacity 423 ug/dL 228-428 [facility] Nucleated red blood cell per centageOrdered By: Miranda Hester on 01-18-2025 Nucleated RBC/100 WBC (Bld) [Ratio] 0 % 0-5 [facility] Platelet countOrdered By: Cesar Hester on 01-18-2025 Platelets (Bld) [#/Vol] 336 10*3/uL 150-450 [facility] RBC Auto (Bld) [#/Vol]Ordere d By: Miranda Hester on 01-18-2025 RBC (Bld) [#/Vol] 4.04 10*6/uL Low 4.2-5.4 [facility] Serum or plasma ferritin ully surement (mass/volume)Ordered By: Miranda Hester on 01-18-2025 Ferritin [Mass/Vol] 11 ng/mL Low 22-378 [facility] Serum or plasma iron saturat ion measurement (mass fraction)Ordered By: Miranda Hester on 01-18-2025 Iron saturation [Mass fraction] 7.4 % Low 13-59 [facility] Comment on above: Previous reported re sult: 7.0 %Edited by: KEVIN on 01/18/25:1326 AMENDED REPORT 01/18/25 1326 IRON SATURATION previously reported as: 7.0 L % White blood cell (WBC) count Ordered By: Miranda Hester on 01-18-2025 WBC (Bld) [#/Vol] 8.2 10*3/uL 4.4-11.0 [facility] Stool Occult Blood iFOBon STOB Negative Normal [facility] Comment on above: Performed By: #### L 500.4100, L100.0100, L502.0250, L506.1000, L500.4050, L503.0105 #### [facility] [place], [address] Stool gastrointestinal hemog lobin detection by immunologic methodOrdered By: Miranda Hester on 01-13-2025 Lower GI hemoglobin IA Ql (Stl) [facility] Stool gastrointestinal hemog lobin detection by immunologic methodOrdered By: Miranda Hester on 01-12-2025 Lower GI hemoglobin IA Ql (Stl) [facility] Stool gastrointestinal hemog lobin detection by immunologic methodOrdered By: Miranda Hester on 01-11-2025 Lower GI hemoglobin IA Ql (Stl) [facility] Absolute lymphocyte countOrd ered By: Miranda Hester on 01-09-2025 Lymphocytes Auto (Unsp spec) [#/Vol] 2.32 10*3/uL 0.83-4.51 [facility] Absolute neutrophil countOrd ered By: Miranda Hester on 01-09-2025 Neutrophils (Bld) [#/Vol] 4.5 10*3/uL 2.0-7.7 [facility] Automated lymphocyte count a s percentage of total leukocytesOrdered By: Miranda Hester on 01-09-2025 Lymphocytes/100 WBC Auto (Unsp spec) 30.4 % 19-41 [facility] Basophil percentageOrdered B y: Miranda Hester on 01-09-2025 Basophils/100 WBC (Bld) 0.9 % 0-1 [facility] CBC W/Diff, Automatedon 12-29-2024 Absolute Lymph 2.32 X10 3/uL Normal 0.83-4.51 [facility] Comment on above: Performed By: #### L 506.1001, L100.0100 #### [facility] [address] [place], [address] Absolute Neut 4.5 X10 3/uL Normal 2.0-7.7 [facility] Comment on above: Performed By: #### L 506.1001, L100.0100 #### [facility] [address] [place], [address] Basophils/100 WBC (Bld) 0.9 % Normal 0-1 [facility] Comment on above: Performed By: #### L 506.1001, L100.0100 #### [facility] [address] [place], [address] Eosinophils/100 WBC (Bld) 2.1 % Normal 0-5 [facility] Comment on above: Performed By: #### L 506.1001, L100.0100 #### [facility] [address] [place], [address] Erythrocyte distribution width (RBC) [Ratio] 15.1 % High 11.6-14.6 [facility] Comment on above: Performed By: #### L 506.1001, L100.0100 #### [facility] [address] [place], [address] Hematocrit (Bld) [Volume fraction] 33.2 % Low 37-47 [facility] Comment on above: Performed By: #### L 506.1001, L100.0100 #### [facility] [address] [place], [address] Hemoglobin (Bld) [Mass/Vol] 9.9 g/dL Low 12.0-15.0 [facility] Comment on above: Performed By: #### L 506.1001, L100.0100 #### [facility] [address] [place], [address] IG% 0.400 Normal 0.0-0.9 [facility] Comment on above: Result Comment: IG% - Immature Granulocytes (promyelocytes, myelocytes and metamyelocytes) > 1% indicates that a LEFT SHIFT is Present. Performed By: #### L 506.1001, L100.0100 #### [facility] [address] [place], [address] Lymphocytes/100 WBC (Bld) 30.4 % Normal 19-41 [facility] Comment on above: Performed By: #### L 506.1001, L100.0100 #### [facility] [address] [place], [address] MCH (RBC) [Entitic mass] 24.8 pg Low 27.0-32.0 [facility] Comment on above: Performed By: #### L 506.1001, L100.0100 #### [facility] [address] [place], [address] MCHC (RBC) [Mass/Vol] 29.8 g/dL Low 32-36 [facility] Comment on above: Performed By: #### L 506.1001, L100.0100 #### [facility] [address] [place], [address] MCV (RBC) [Entitic vol] 83.0 fL Normal 81-99 [facility] Comment on above: Performed By: #### L 506.1001, L100.0100 #### [facility] [address] [place], [address] Monocytes/100 WBC (Bld) 7.5 % Normal 0-10 [facility] Comment on above: Performed By: #### L 506.1001, L100.0100 #### [facility] [address] [place], [address] Neutrophils/100 WBC (Bld) 58.7 % Normal 47-70 [facility] Comment on above: Performed By: #### L 506.1001, L100.0100 #### [facility] [address] [place], [address] Nucleated RBC (Bld) [#/Vol] 0 10*3/uL Normal 0-5 [facility] Comment on above: Performed By: #### L 506.1001, L100.0100 #### [facility] [address] [place], [address] Platelet mean volume (Bld) [Entitic vol] 10.0 fL Normal 6.2-12.0 [facility] Comment on above: Performed By: #### L 506.1001, L100.0100 #### [facility] [address] [place], [address] Platelets (Bld) [#/Vol] 347 10*3/uL Normal 150-450 [facility] Comment on above: Performed By: #### L 506.1001, L100.0100 #### [facility] [address] [place], [address] RBC (Bld) [#/Vol] 4.00 10*6/uL Low 4.2-5.4 [facility] Comment on above: Performed By: #### L 506.1001, L100.0100 #### [facility] [address] [place], [address] RDW SD 45.4 fl High 35.1-43.9 [facility] Comment on above: Performed By: #### L 506.1001, L100.0100 #### [facility] [address] [place], [address] WBC (Bld) [#/Vol] 7.6 10*3/uL Normal 4.4-11.0 [facility] Comment on above: Performed By: #### L 506.1001, L100.0100 #### [facility] [address] [place], [address] Eosinophil percentageOrdered By: savitaylorsvillesunny Hester on 01-09-2025 Eosinophils/100 WBC (Bld) 2.1 % 0-5 [facility] Erythrocyte distribution wid th ratioOrdered By: [facility] Evansservando on 01-09-2025 Erythrocyte distribution width (RBC) [Ratio] 15.1 % High 11.6-14.6 [facility] Erythrocyte distribution wid th standard deviationOrdered By: [facility] Kacie on 01-09-2025 Erythrocyte distribution width (RBC) [Ratio] 45.4 fl High 35.1-43.9 [facility] Hematocrit Auto (Bld) [Volum e fraction]Ordered By: [facility] Evansservando on 01-09-2025 Hematocrit (Bld) [Volume fraction] 33.2 % Low 37-47 [facility] Hemoglobin measurementOrdere d By: Miranda Hester on 01-09-2025 Hemoglobin (Bld) [Mass/Vol] 9.9 g/dL Low 12.0-15.0 [facility] Immature granulocytes/100 WB C Auto (Bld)Ordered By: [facility] H[facility] on 01-09-2025 Immature granulocytes/100 WBC (Bld) 0.400 % 0.0-0.9 [facility] Comment on above: IG% - Immature Granu locytes (promyelocytes, myelocytes and metamyelocytes) > 1% indicates that a LEFT SHIFT is Present. MCV (mean corpuscular volume ) determinationOrdered By: Miranda Hester on 01-09-2025 MCV (RBC) [Entitic vol] 83.0 fL 81-99 [facility] Mean corpuscular hemoglobin (MCH) determinationOrdered By: Miranda Hester on 01-09-2025 MCH (RBC) [Entitic mass] 24.8 pg Low 27.0-32.0 [facility] Mean corpuscular hemoglobin concentration (MCHC) determinationOrdered By: Miranda Hester on 01-09-2025 MCHC (RBC) [Mass/Vol] 29.8 g/dL Low 32-36 [facility] Mean platelet volume determi nationOrdered By: Miranda Hester on 01-09-2025 Platelet mean volume (Bld) [Entitic vol] 10.0 fL 6.2-12.0 [facility] Monocyte percentageOrdered B y: Miranda Hetser on 01-09-2025 Monocytes/100 WBC (Bld) 7.5 % 0-10 [facility] Neutrophil percentageOrdered By: Leontaylorsvillesunny Hester on 01-09-2025 Neutrophils/100 WBC (Bld) 58.7 % 47-70 [facility] Nucleated red blood cell per centageOrdered By: Miranda Hester on 01-09-2025 Nucleated RBC/100 WBC (Bld) [Ratio] 0 % 0-5 [facility] Platelet countOrdered By: Cesar Hester on 01-09-2025 Platelets (Bld) [#/Vol] 347 10*3/uL 150-450 [facility] RBC Auto (Bld) [#/Vol]Ordere d By: Miranda Hester on 01-09-2025 RBC (Bld) [#/Vol] 4.00 10*6/uL Low 4.2-5.4 [facility] Vitamin D,25 Hydroxyon 01-09 Vitamin D 25-OH 60.1 ng/mL Normal 30-100 [facility] Comment on above: Result Comment: Abby min D Status Deficiency: <20 ng/mL (50nmol/L) Insufficiency: 20-30 ng/mL (50-75 nmol/L) Sufficiency: 30-100 ng/mL (75-250 nmol/L) Toxicity: >100 ng/mL (>250 nmol/L) Performed By: #### L 506.1001, L100.0100 #### [facility] [address] [place], [address] White blood cell (WBC) count Ordered By: Miranda Hester on 01-09-2025 WBC (Bld) [#/Vol] 7.6 10*3/uL 4.4-11.0 [facility] Ferritinon 12-07-2024 Ferritin [Mass/Vol] 9 ng/mL Low 22-378 [facility] Comment on above: Performed By: #### L 500.4100, L100.0100, L502.0250, L506.1000, L500.4050, L503.0105 #### [facility] [address] [place], [address] Iron+Iron Binding Capacityon 12-07-2024 TIBC 481 ug/dL High 250-450 [facility] Comment on above: Performed By: #### L 500.4100, L100.0100, L502.0250, L506.1000, L500.4050, L503.0105 #### [facility] [address] [place], [address] IRON Normal 50-170 [facility] Comment on above: Result Comment: ERRO R Performed By: #### L 503.6030 #### [facility] [address] [place], [address] IRON SATURATION Normal 13-59 [facility] Comment on above: Result Comment: ERRO R Performed By: #### L 503.6030 #### [facility] [address] [place], [address] TIBC Normal 250-450 [facility] Comment on above: Result Comment: ERRO R Performed By: #### L 503.6030 #### [facility] [address] [place], [address] UIBC Normal 228-428 [facility] Comment on above: Result Comment: ERRO R Performed By: #### L 503.6030 #### [facility] [address] [place], [address] Ironon 12-06-2024 Iron [Mass/Vol] 21 ug/dL Low 50-170 [facility] Comment on above: Order Comment: DR FREDY BARBA ADDED A FE. POOJALE Performed By: #### L 500.4100, L100.0100, L502.0250, L506.1000, L500.4050, L503.0105 #### [facility] [address] [place], [address] Absolute lymphocyte countOrd ered By: savitaylorsvillesunny Hester on 12-05-2024 Lymphocytes Auto (Unsp spec) [#/Vol] 2.25 10*3/uL 0.83-4.51 [facility] Absolute neutrophil countOrd ered By: savitaylorsvillesunny Hester on 12-05-2024 Neutrophils (Bld) [#/Vol] 5.1 10*3/uL 2.0-7.7 [facility] Anion gap in Serum or Plasma Ordered By: savitaylorsvillesunny Hester on 12-05-2024 Anion gap [Moles/Vol] 14 mmol/L 5-15 [facility] Automated lymphocyte count a s percentage of total leukocytesOrdered By: Miranda Hester on 12-05-2024 Lymphocytes/100 WBC Auto (Unsp spec) 27.1 % 19-41 [facility] BUN/creatinine ratioOrdered By: Miranda Hester on 12-05-2024 Urea nitrogen/Creatinine [Mass ratio] 23.4 mg/mg High 10-20 [facility] Basic Metabolic Profile (BMP )on 12-05-2024 BUN/CRE 23.4 RATIO High - [facility] Comment on above: Performed By: #### L 500.4100, L100.0100, L502.0250, L506.1000, L500.4050, L503.0105 #### [facility] [address] [place], [address] Calcium [Mass/Vol] 9.6 mg/dL Normal 7.6-11.0 [facility] Comment on above: Performed By: #### L 500.4100, L100.0100, L502.0250, L506.1000, L500.4050, L503.0105 #### [facility] [address] [place], [address] Chloride [Moles/Vol] 102 mmol/L Normal 98-108 [facility] Comment on above: Performed By: #### L 500.4100, L100.0100, L502.0250, L506.1000, L500.4050, L503.0105 #### [facility] [address] [place], [address] CO2 [Moles/Vol] 23.2 mmol/L Normal 21.0-32.0 [facility] Comment on above: Performed By: #### L 500.4100, L100.0100, L502.0250, L506.1000, L500.4050, L503.0105 #### [facility] [address] [place], [address] Creatinine [Mass/Vol] 0.85 mg/dL Normal 0.70-1.20 [facility] Comment on above: Performed By: #### L 500.4100, L100.0100, L502.0250, L506.1000, L500.4050, L503.0105 #### [facility] [address] [place], [address] GAP 14 Normal 5-15 [facility] Comment on above: Performed By: #### L 500.4100, L100.0100, L502.0250, L506.1000, L500.4050, L503.0105 #### [facility] [address] [place], [address] GFR/1.73 sq M.predicted among non-blacks MDRD (S/P/Bld) [Vol rate/Area] 71 mL/min/{1.73_m2} Normal >60 [facility] Comment on above: Result Comment: mL/m in/1.73m2 CKD-EPI Creatinine Equation (2020) Performed By: #### L 500.4100, L100.0100, L502.0250, L506.1000, L500.4050, L503.0105 #### [facility] [address] [place], [address] Glucose [Mass/Vol] 99 mg/dL Normal 70-99 [facility] Comment on above: Performed By: #### L 500.4100, L100.0100, L502.0250, L506.1000, L500.4050, L503.0105 #### [facility] [address] [place], [address] Potassium [Moles/Vol] 4.2 mmol/L Normal 3.3-5.1 [facility] Comment on above: Performed By: #### L 500.4100, L100.0100, L502.0250, L506.1000, L500.4050, L503.0105 #### [facility] [address] [place], [address] Sodium [Moles/Vol] 139 mmol/L Normal 133-145 [facility] Comment on above: Performed By: #### L 500.4100, L100.0100, L502.0250, L506.1000, L500.4050, L503.0105 #### [facility] [address] [place], [address] Urea nitrogen [Mass/Vol] 20 mg/dL High 4-19 [facility] Comment on above: Performed By: #### L 500.4100, L100.0100, L502.0250, L506.1000, L500.4050, L503.0105 #### [facility] [address] [place], [address] Basophil percentageOrdered B y: Miranda Hester on 12-05-2024 Basophils/100 WBC (Bld) 0.6 % 0-1 [facility] CBC W/Diff, Automatedon Absolute Lymph 2.25 X10 3/uL Normal 0.83-4.51 [facility] Comment on above: Performed By: #### L 500.4100, L100.0100, L502.0250, L506.1000, L500.4050, L503.0105 #### [facility] [address] [place], [address] Absolute Neut 5.1 X10 3/uL Normal 2.0-7.7 [facility] Comment on above: Performed By: #### L 500.4100, L100.0100, L502.0250, L506.1000, L500.4050, L503.0105 #### [facility] [address] [place], [address] Basophils/100 WBC (Bld) 0.6 % Normal 0-1 [facility] Comment on above: Performed By: #### L 500.4100, L100.0100, L502.0250, L506.1000, L500.4050, L503.0105 #### [facility] [address] [place], [address] Eosinophils/100 WBC (Bld) 1.9 % Normal 0-5 [facility] Comment on above: Performed By: #### L 500.4100, L100.0100, L502.0250, L506.1000, L500.4050, L503.0105 #### [facility] [address] [place], [address] Erythrocyte distribution width (RBC) [Ratio] 14.2 % Normal 11.6-14.6 [facility] Comment on above: Performed By: #### L 500.4100, L100.0100, L502.0250, L506.1000, L500.4050, L503.0105 #### [facility] [address] [place], [address] Hematocrit (Bld) [Volume fraction] 34.4 % Low 37-47 [facility] Comment on above: Performed By: #### L 500.4100, L100.0100, L502.0250, L506.1000, L500.4050, L503.0105 #### [facility] [address] [place], [address] Hemoglobin (Bld) [Mass/Vol] 10.4 g/dL Low 12.0-15.0 [facility] Comment on above: Performed By: #### L 500.4100, L100.0100, L502.0250, L506.1000, L500.4050, L503.0105 #### [facility] [address] [place], [address] IG% 0.500 Normal 0.0-0.9 [facility] Comment on above: Result Comment: IG% - Immature Granulocytes (promyelocytes, myelocytes and metamyelocytes) > 1% indicates that a LEFT SHIFT is Present. Performed By: #### L 500.4100, L100.0100, L502.0250, L506.1000, L500.4050, L503.0105 #### [facility] [address] [place], [address] Lymphocytes/100 WBC (Bld) 27.1 % Normal 19-41 [facility] Comment on above: Performed By: #### L 500.4100, L100.0100, L502.0250, L506.1000, L500.4050, L503.0105 #### [facility] [address] [place], [address] MCH (RBC) [Entitic mass] 25.4 pg Low 27.0-32.0 [facility] Comment on above: Performed By: #### L 500.4100, L100.0100, L502.0250, L506.1000, L500.4050, L503.0105 #### [facility] [address] [place], [address] MCHC (RBC) [Mass/Vol] 30.2 g/dL Low 32-36 [facility] Comment on above: Performed By: #### L 500.4100, L100.0100, L502.0250, L506.1000, L500.4050, L503.0105 #### [facility] [address] [place], [address] MCV (RBC) [Entitic vol] 83.9 fL Normal 81-99 [facility] Comment on above: Performed By: #### L 500.4100, L100.0100, L502.0250, L506.1000, L500.4050, L503.0105 #### [facility] [address] [place], [address] Monocytes/100 WBC (Bld) 8.1 % Normal 0-10 [facility] Comment on above: Performed By: #### L 500.4100, L100.0100, L502.0250, L506.1000, L500.4050, L503.0105 #### [facility] [address] [place], [address] Neutrophils/100 WBC (Bld) 61.8 % Normal 47-70 [facility] Comment on above: Performed By: #### L 500.4100, L100.0100, L502.0250, L506.1000, L500.4050, L503.0105 #### [facility] [address] [place], [address] Nucleated RBC (Bld) [#/Vol] 0 10*3/uL Normal 0-5 [facility] Comment on above: Performed By: #### L 500.4100, L100.0100, L502.0250, L506.1000, L500.4050, L503.0105 #### [facility] [address] [place], [address] Platelet mean volume (Bld) [Entitic vol] 9.8 fL Normal 6.2-12.0 [facility] Comment on above: Performed By: #### L 500.4100, L100.0100, L502.0250, L506.1000, L500.4050, L503.0105 #### [facility] [address] [place], [address] Platelets (Bld) [#/Vol] 373 10*3/uL Normal 150-450 [facility] Comment on above: Performed By: #### L 500.4100, L100.0100, L502.0250, L506.1000, L500.4050, L503.0105 #### [facility] [address] [place], [address] RBC (Bld) [#/Vol] 4.10 10*6/uL Low 4.2-5.4 [facility] Comment on above: Performed By: #### L 500.4100, L100.0100, L502.0250, L506.1000, L500.4050, L503.0105 #### [facility] [address] [place], [address] RDW SD 43.8 fl Normal 35.1-43.9 [facility] Comment on above: Performed By: #### L 500.4100, L100.0100, L502.0250, L506.1000, L500.4050, L503.0105 #### [facility] [address] [place], [address] WBC (Bld) [#/Vol] 8.3 10*3/uL Normal 4.4-11.0 [facility] Comment on above: Performed By: #### L 500.4100, L100.0100, L502.0250, L506.1000, L500.4050, L503.0105 #### [facility] [address] [place], [address] Calculated total iron bindin g capacityOrdered By: Miranda Hester on 12-05-2024 Total Iron Binding Capacity 481 ug/dL High 250-450 [facility] Carbon dioxide, total [Moles /volume] in Central venous bloodOrdered By: [facility] on 12-05-2024 CO2 [Moles/Vol] 23.2 mmol/L 21.0-32.0 [facility] Chloride assayOrdered By: [facility] on 12-05-2024 Chloride [Moles/Vol] 102 mmol/L 98-108 [facility] Eosinophil percentageOrdered By: savitaylorsvillesunny Hester on 12-05-2024 Eosinophils/100 WBC (Bld) 1.9 % 0-5 [facility] Erythrocyte distribution wid th (RBC) [Ratio]Ordered By: [facility] Nathanservando on 12-05-2024 Erythrocyte distribution width (RBC) [Entitic vol] 43.8 fL 35.1-43.9 [facility] Erythrocyte distribution wid th ratioOrdered By: [facility] Nathanservando on 12-05-2024 Erythrocyte distribution width (RBC) [Ratio] 14.2 % 11.6-14.6 [facility] Erythrocyte distribution wid th standard deviationOrdered By: [facility] Nathanservando on 12-05-2024 Erythrocyte distribution width (RBC) [Ratio] 43.8 fl 35.1-43.9 [facility] GFR/1.73 sq M.predicted karsten g non-blacks MDRD (S/P/Bld) [Vol rate/Area]Ordered By: Miranda Hester on 12-05-2024 Estimated GFR (MDRD) Non-Af Amer 71 >60 [facility] Comment on above: mL/min/1.73m2 CKD-EP I Creatinine Equation (2020) Glomerular filtration rate ( GFR) estimation/1.73 sq m using serum, plasma, or whole bOrdered By: Miranda Hester on 12-05-2024 GFR/1.73 sq M.predicted among non-blacks MDRD (S/P/Bld) [Vol rate/Area] 71 mL/min/{1.73_m2} >60 [facility] Comment on above: mL/min/1.73m2 CKD-EP I Creatinine Equation (2020) Hematocrit Auto (Bld) [Volum e fraction]Ordered By: Miranda Hester on 12-05-2024 Hematocrit (Bld) [Volume fraction] 34.4 % Low 37-47 [facility] Hemoglobin measurementOrdere d By: Miranda Hester on 12-05-2024 Hemoglobin (Bld) [Mass/Vol] 10.4 g/dL Low 12.0-15.0 [facility] Immature granulocytes/100 WB C Auto (Bld)Ordered By: Miranda Hester on 12-05-2024 Immature granulocytes/100 WBC (Bld) 0.500 % 0.0-0.9 [facility] Comment on above: IG% - Immature Granu locytes (promyelocytes, myelocytes and metamyelocytes) > 1% indicates that a LEFT SHIFT is Present. Internal Medicine Office Vis santhosh 12-05-2024 Internal Medicine Office Visit [facility] [address] [place] [address] [place] [address] OFFICE VISIT Date of Service: 12/05/24 MR#: [id number] Acct: [id number] Name: KARYN GONSALES Rep #: [id number] : 1950 Provider: Dr. Miranda barba MD Age/Sex: 74/F [place] [facility] Status: Signed Intake Vital Signs 08/29/24 09:05 12/05/24 08:52 Height 5 ft 1 in 5 ft 1 in Weight: 142 lb BMI 26.8 BP 110/60 Blood Pressure Location Rt brachial Position Sitting Respiration 14 Pulse 56 L Pulse Source Monitor Temp 97.1 F L Temp Source Temporal Intake Visit Reasons: 3 M FU Chief Complaint: Follow-up chronic conditions Clinician Oncology Required: No Is patient in pain?: No Allergies prochlorperazine (From Compazine) Allergy (Verified 12/05/24 08:48) Other NSAIDS (Non-Steroidal Anti-Inflamma Adverse Reaction (Verified 12/05/24 08:48) Upset Stomach Medications ???Medication ???Instructions ???Recorded ???Confirmed ???Type potassium chloride 10 mEq See Rx Instructions .Route 3 12/05/24 Rx tablet,extended release .COMPLEX #90 tabs [...] fallen in the past year?: Yes (01/21) [facility] Medical History Lumbar radiculopathy Overweight (BMI 25.0-29.9) [...] well. She however has questions about the "safety" of metformin. History of hypertension, blood pressure today at 110/60 mmHg. Currently on hydrochlorothiazide and ramipril. Taking her medications consistently. She questions if she needs to be on all of these medications. Other chronic medical conditions are stable. Continues to follow-up closely with Ortho at the [facility]. No significant lower back/radiculopathy reported. ROS Const Constitutional: No body ache, chills, excessive sweating, fatigue, fever(s), frequent falls, headache(s), snoring, weakness, sleep problems or change in appetite Eyes Eyes: No blurry vision, change in visio (more content not included)... Normal [facility] [Mass/Mass] Ordered By: Miranda Hester on 12-05-2024 Iron [Mass/Vol] 21 ug/dL Low 50-170 [facility] Iron measurement (mass/mass) Ordered By: Miranda Hester on 12-05-2024 Iron (Unsp spec) [Mass/Mass] 21 ug/dL Low 50-170 [facility] Iron saturation [Mass fracti on]Ordered By: Miranda Hester on 12-05-2024 Iron Saturation 4.0 % Low 13-59 [facility] Comment on above: Previous reported re sult: 4.0 %Edited by: DANNA on 12/07/24:1735 Laboratory - Hematology and Cell countsOrdered By: Miranda Hester on 12-05-2024 HbA1c (Bld) [Mass fraction] 6.7 % High 4.2-6.3 [facility] Lymphocytes Auto (Unsp spec) [#/Vol]Ordered By: Miranda Hester on 12-05-2024 Lymphocytes (Bld) [#/Vol] 2.25 10*3/uL 0.83-4.5 1 [facility] Lymphocytes/100 WBC Auto (Un sp spec)Ordered By: Miranda Hester on 12-05-2024 Lymphocytes/100 WBC (Bld) 27.1 % 19-41 [facility] MCV (mean corpuscular volume ) determinationOrdered By: Miranda Hester on 12-05-2024 MCV (RBC) [Entitic vol] 83.9 fL 81-99 [facility] Mean corpuscular hemoglobin (MCH) determinationOrdered By: Miranda Hester on 12-05-2024 MCH (RBC) [Entitic mass] 25.4 pg Low 27.0-32.0 [facility] Mean corpuscular hemoglobin concentration (MCHC) determinationOrdered By: Miranda Hester on 12-05-2024 MCHC (RBC) [Mass/Vol] 30.2 g/dL Low 32-36 [facility] Mean platelet volume determi nationOrdered By: Miranda Hester on 12-05-2024 Platelet mean volume (Bld) [Entitic vol] 9.8 fL 6.2-12.0 [facility] Monocyte percentageOrdered B y: Miranda Nathanradha on 12-05-2024 Monocytes/100 WBC (Bld) 8.1 % 0-10 [facility] Neutrophil percentageOrdered By: Cesarsaviroelsunny Evansmelizaservando on 12-05-2024 Neutrophils/100 WBC (Bld) 61.8 % 47-70 [facility] No Panel InformationOrdered By: Leonroelsunny Evansmelizaservando on 12-05-2024 Unsaturated Iron Binding Capacity 460 ug/dL High 228-428 [facility] Nucleated red blood cell per centageOrdered By: Leonroelsunny Evansmelizaservando on 12-05-2024 Nucleated RBC/100 WBC (Bld) [Ratio] 0 % 0-5 [facility] Platelet countOrdered By: Cesar sudheersunny Evansmelizaservando on 12-05-2024 Platelets (Bld) [#/Vol] 373 10*3/uL 150-450 [facility] Potassium (Unsp spec) [Mass/ Vol]Ordered By: Miranda Hester on 12-05-2024 Potassium [Moles/Vol] 4.2 mmol/L 3.3-5.1 [facility] Potassium measurement (mass/ volume)Ordered By: Miranda Hester on 12-05-2024 Potassium (Unsp spec) [Mass/Vol] 4.2 mmol/L 3.3-5.1 [facility] RBC Auto (Bld) [#/Vol]Ordere d By: Leonroelsunny Evansmelizaservando on 12-05-2024 RBC (Bld) [#/Vol] 4.10 10*6/uL Low 4.2-5.4 [facility] Serum creatinine measurement (mass/volume)Ordered By: Miranda Hester on 12-05-2024 Creatinine [Mass/Vol] 0.85 mg/dL 0.70-1.20 [facility] Serum glucose measurement (m ass/volume)Ordered By: Miranda Hester on 12-05-2024 Glucose [Mass/Vol] 99 mg/dL 70-99 [facility] Serum or plasma calcium zarina urement (mass/volume)Ordered By: Miranda Hester on 12-05-2024 Calcium [Mass/Vol] 9.6 mg/dL 7.6-11.0 [facility] Serum or plasma ferritin luly surement (mass/volume)Ordered By: Miranda Hester on 12-05-2024 Ferritin [Mass/Vol] 9 ng/mL Low 22-378 [facility] Serum or plasma iron saturat ion measurement (mass fraction)Ordered By: Miranda Hester on 12-05-2024 Iron saturation [Mass fraction] 4.0 % Low 13-59 [facility] Comment on above: Previous reported re sult: 4.0 %Edited by: DANNA on 12/07/24:1735 Serum or plasma urea nitroge n measurement (mass/volume)Ordered By: Miranda Hester on 12-05-2024 Urea nitrogen [Mass/Vol] 20 mg/dL High 4-19 [facility] Sodium levelOrdered By: Leon islaspineda Kacie on 12-05-2024 Sodium [Moles/Vol] 139 mmol/L 133-145 [facility] White blood cell (WBC) count Ordered By: Miranda Hester on 12-05-2024 WBC (Bld) [#/Vol] 8.3 10*3/uL 4.4-11.0 [facility] Jacqui 09-14-2024 VENKAT Telephone (DARIAN) KARYN GONSALES ([id number]) 1950 F Date Time Provider Department 09/14/24 CHANDA OCASIO During your visit today, we recorded the following information about you: Chanda Ocasio APRN.CNP 09/14/2024 2:50 PM Signed Please inform pt. that her mammogram looks good. Mammogram in one year-OV after. Thank you. WILFRID Greer Naomi 09/14/2024 4:16 PM Signed SPOKE TO PT SCHEDULED DIRECTED. Sushil Rios Allergies As of Date: 09/14/2024 Noted Allergy Reaction COMPAZINE (PROCHLORPERAZINE EDISY*04/02/2009 9 - Itching Date Reviewed: 09/13/2024 Reviewed by: Chanda Ocasio APRN.POCKET CLOSER - Fully Assessed Primary Visit Diagnosis:Invasive ductal carcinoma of left breast in female (HCC) [C50.912] Other Visit Diagnosis:Encounter for screening mammogram for high-risk patient [Z12.31] Order(s):[facility] SCREENING W SHANEL [[id number]] Order #: [id number] FUTURE Prescriptions as of 09/14/2024 - HYDROcodone-Acetaminop [...] Encounter Status:Closed by SUSHIL RIOS on 09/14/24 Normal [facility] CNOVSPon 09-13-2024 CNOVSP Visit (SP) Office (HEMAWS) KARYN GONSALES ([id number]) 1950 F Date Time Provider Department 09/13/24 9:00 AM CHANDA OCASIO During your visit today, we recorded the following information about you: Temperature Pulse Blood pressure Weight 97.4 degrees 92/minute 124/79 64.9 kg Chanda Ocasio APRN.POCKET CLOSER 09/15/2024 11:43 AM Signed Chief Complaint Patient [...] nodes are negative. ER is 59% , IA is 89% , HER-2/selena by FISH is [...] mamm 03/25/23. Pt. followed by Ortho at [facility]. +back pain. Recent MRI. Scheduled for procedure 10/11/24. Pt. here today with spouse. Appetite:"Good." Wt. down 11# over past 2 1/2 years. Energy level:"I have none." Denies fever or recent illness. Resp:denies cough or sob Cardiac:denies chest pain/palpitations GI:denies abd pain h/o gastric bypass-n/v, moving bowels regularly :denies dysuria/hematuria Extrem:R leg/low back pain-followed by [facility], denies other pain Endo:denies hot flashes [...] pT1b (8 mm; moderately diff) N0 MX ER/IA positive; HER2 non amplified by FISH invasive [...] AI therapy. - Reviewed MRI done at [facility] earlier this month. DEBBIE. - Mammogram as scheduled today. - Follow up pending above. - Pt. aware to call office with any questions/concerns. The sensitive examination was discussed with the Patient or Patient's Authorized Mud Mixer. As applicable, any other physician, advance practice provider, medical student, or other health professional student that will be observing or involved in the sensitive examination for educational or training purposes was discussed with the Patient or Authorized Mud Mixer. The Patient or Authorized Mud Mixer has agreed to proceed with the sensitive examination. (Sensitive examination includes inspection and/or palpation of the breasts, pelvis, prostate and anorectal regions) The patient indicates understanding of these issues and agrees with the plan. All documentation from previous visit of 12/10/21-Dr. Schultz/myself was copied and pasted, documentation has been reviewed and edited as necessary for today's visit. Chanda Ocasio APRN.POCKET CLOSER Allergies As of Date: 09/13/2024 Noted Allergy Reaction COMPAZINE (PROCHLORPERAZINE EDISY*04/02/2009 9 - Itching Date Reviewed: 09/13/2024 Reviewed by: Chanda Ocasio APRN.POCKET CLOSER - Fully Assessed Reason for Visit: Established Patient [175] P (more content not included)... Normal [facility] SPENCER SCREENING W TOMOon 09-13 SPENCER SCREENING W SHANEL * * *Final Report* * * DATE OF EXAM: Sep 13 2024 10:02AM WRW [id number] - SPENCER SCREENING W SHANEL / PROCEDURE REASON: multiple diagnoses * * * * Physician Interpretation * * * * RESULT: [facility] [address] [place] [address] #[id number] - SPENCER SCREENING W SHANEL HISTORY: Patient [...] Kiki Day M.D. Electronically signed on: 09/14/2024 Associate Professor Of Literature: HIEU Transcribe Date/Time: Sep 13 2024 9:37A Dictated by: KIKI DAY MD This examination was interpreted and the report reviewed and electronically signed by: KIKI DAY MD on Sep 14 2024 12:22PM EST [id number] Normal [facility] Jacqui 09-08-2024 VNEKAT Telephone (DARIAN) KARYN GONSALES ([id number]) 1950 F Date Time Provider Department 09/08/24 [...] a year ago. She walks [place] the [employer], but one evening 6 weeks ago she [...] Noted. Agree. Please request copy of MRI. WILFRID Greer Kara, LPN 09/09/2024 10:59 AM Signed Requested. DIANE Wu Ashley 09/09/2024 1:29 PM Signed [facility] called to report that the patient was not seen at their facility. Please contact patient to discuss where MRI was performed. Saniya Oviedo LPN 09/09/2024 2:05 PM Signed I sent a fax request this morning to [facility] to req MRI. I never requested an MRI from [facility]. DIANE Wu Ashley 09/12/2024 9:56 AM Signed Patient states that [...] Date Reviewed: 12/13/2023 Reviewed by: Cherrie Donis APRN.POCKET CLOSER - Fully Assessed Reason for Visit: Patient Update [1234] Primary Visit Diagnosis:Invasive ductal carcinoma of left breast in female (HCC) [C50.912] Other Visit Diagnosis:Encounter for screening mammogram for high-risk patient [Z12.31] Order(s):[facility] SCREENING W SHANEL [[id number]] Order #: [id number] FUTURE Prescriptions as of 09/12/2024 - ramipril [...] 02/25/2017 Hypertensi (more content not included)... Normal [facility] 71-PG-Apkuwkd DOrdered By: Servando Hester on 08-29-2024 Vitamin D 25-Hydroxy 60.6 ng/mL [facility] Comment on above: Vitamin D 25(OH) Sta tus Range Deficiency <20 ng/mL (50nmol/L) Insufficiency 20 - 30 ng/mL (50 - 75 nmol/L) Sufficiency 30 - 100 ng/mL (75 - 250 nmol/L) Toxicity >100 ng/mL (>250 nmol/L) Absolute neutrophil countOrd ered By: Miranda Hester on 08-29-2024 Neutrophils (Bld) [#/Vol] 4.5 10*3/uL 2.0-7.7 [facility] Albumin to globulin ratioOrd ered By: Miranda Hester on 08-29-2024 Albumin/Globulin [Mass ratio] 0.9 {ratio} 0.9-2.4 [facility] Basophil percentageOrdered B y: Miranda Hester on 08-29-2024 Basophils/100 WBC (Bld) 0.7 % 0-1 [facility] Bilirubin, totalOrdered By: Miranda Hester on 08-29-2024 Bilirubin [Mass/Vol] 0.30 mg/dL 0.20-1.00 [facility] Comment on above: For patients on eltr ombopag therapy, use of Dimension [place] TBIL is not recommended. Blood urea nitrogen (BUN)/cr eatinine ratioOrdered By: Miranda Hester on 08-29-2024 Urea nitrogen/Creatinine [Mass ratio] 21.8 mg/mg High - [facility] CBC W/Diff, Automatedon 08-02 Absolute Lymph 1.99 X10 3/uL Normal 0.83-4.51 [facility] Comment on above: Performed By: #### L 500.4100, L100.0100, L502.0250, L506.1000, L500.4050, L503.0105 #### [facility] [address] [place], [address] Absolute Neut 4.5 X10 3/uL Normal 2.0-7.7 [facility] Comment on above: Performed By: #### L 500.4100, L100.0100, L502.0250, L506.1000, L500.4050, L503.0105 #### [facility] [address] [place], [address] Basophils/100 WBC (Bld) 0.7 % Normal 0-1 [facility] Comment on above: Performed By: #### L 500.4100, L100.0100, L502.0250, L506.1000, L500.4050, L503.0105 #### [facility] [address] [place], [address] Eosinophils/100 WBC (Bld) 3.9 % Normal 0-5 [facility] Comment on above: Performed By: #### L 500.4100, L100.0100, L502.0250, L506.1000, L500.4050, L503.0105 #### [facility] [address] [place], [address] Erythrocyte distribution width (RBC) [Ratio] 16.8 % High 11.6-14.6 [facility] Comment on above: Performed By: #### L 500.4100, L100.0100, L502.0250, L506.1000, L500.4050, L503.0105 #### [facility] [address] [place], [address] Hematocrit (Bld) [Volume fraction] 37.7 % Normal 37-47 [facility] Comment on above: Performed By: #### L 500.4100, L100.0100, L502.0250, L506.1000, L500.4050, L503.0105 #### [facility] [address] [place], [address] Hemoglobin (Bld) [Mass/Vol] 11.6 g/dL Low 12.0-15.0 [facility] Comment on above: Performed By: #### L 500.4100, L100.0100, L502.0250, L506.1000, L500.4050, L503.0105 #### [facility] [address] [place], [address] IG% 0.300 Normal 0.0-0.9 [facility] Comment on above: Result Comment: IG% - Immature Granulocytes (promyelocytes, myelocytes and metamyelocytes) > 1% indicates that a LEFT SHIFT is Present. Performed By: #### L 500.4100, L100.0100, L502.0250, L506.1000, L500.4050, L503.0105 #### [facility] [address] [place], [address] Lymphocytes/100 WBC (Bld) 26.8 % Normal 19-41 [facility] Comment on above: Performed By: #### L 500.4100, L100.0100, L502.0250, L506.1000, L500.4050, L503.0105 #### [facility] [address] [place], [address] MCH (RBC) [Entitic mass] 26.2 pg Low 27.0-32.0 [facility] Comment on above: Performed By: #### L 500.4100, L100.0100, L502.0250, L506.1000, L500.4050, L503.0105 #### [facility] [address] [place], [address] MCHC (RBC) [Mass/Vol] 30.8 g/dL Low 32-36 [facility] Comment on above: Performed By: #### L 500.4100, L100.0100, L502.0250, L506.1000, L500.4050, L503.0105 #### [facility] [address] [place], [address] MCV (RBC) [Entitic vol] 85.1 fL Normal 81-99 [facility] Comment on above: Performed By: #### L 500.4100, L100.0100, L502.0250, L506.1000, L500.4050, L503.0105 #### [facility] [address] [place], [address] Monocytes/100 WBC (Bld) 7.4 % Normal 0-10 [facility] Comment on above: Performed By: #### L 500.4100, L100.0100, L502.0250, L506.1000, L500.4050, L503.0105 #### [facility] [address] [place], [address] Neutrophils/100 WBC (Bld) 60.9 % Normal 47-70 [facility] Comment on above: Performed By: #### L 500.4100, L100.0100, L502.0250, L506.1000, L500.4050, L503.0105 #### [facility] [address] [place], [address] Nucleated RBC (Bld) [#/Vol] 0 10*3/uL Normal 0-5 [facility] Comment on above: Performed By: #### L 500.4100, L100.0100, L502.0250, L506.1000, L500.4050, L503.0105 #### [facility] [address] [place], [address] Platelet mean volume (Bld) [Entitic vol] 9.7 fL Normal 6.2-12.0 [facility] Comment on above: Performed By: #### L 500.4100, L100.0100, L502.0250, L506.1000, L500.4050, L503.0105 #### [facility] [address] [place], [address] Platelets (Bld) [#/Vol] 364 10*3/uL Normal 150-450 [facility] Comment on above: Performed By: #### L 500.4100, L100.0100, L502.0250, L506.1000, L500.4050, L503.0105 #### [facility] [address] [place], [address] RBC (Bld) [#/Vol] 4.43 10*6/uL Normal 4.2-5.4 [facility] Comment on above: Performed By: #### L 500.4100, L100.0100, L502.0250, L506.1000, L500.4050, L503.0105 #### [facility] [address] [place], [address] RDW SD 52.0 fl High 35.1-43.9 [facility] Comment on above: Performed By: #### L 500.4100, L100.0100, L502.0250, L506.1000, L500.4050, L503.0105 #### [facility] [address] [place], [address] WBC (Bld) [#/Vol] 7.4 10*3/uL Normal 4.4-11.0 [facility] Comment on above: Performed By: #### L 500.4100, L100.0100, L502.0250, L506.1000, L500.4050, L503.0105 #### [facility] [address] [place], [address] Carbon dioxide measurementOr dered By: Miranda Hester on 08-29-2024 CO2 [Moles/Vol] 23.0 mmol/L 21.0-32.0 [facility] Chloride measurementOrdered By: Miranda Hester on 08-29-2024 Chloride [Moles/Vol] 108 mmol/L High 98-107 [facility] Comprehensive Metabolic Prof ilon 08-29-2024 Albumin [Mass/Vol] 3.7 g/dL Normal 3.2-5.0 [facility] Comment on above: Performed By: #### L 500.4100, L100.0100, L502.0250, L506.1000, L500.4050, L503.0105 #### [facility] [address] [place], [address] Albumin/Globulin [Mass ratio] 0.9 {ratio} Normal 0.9-2.4 [facility] Comment on above: Performed By: #### L 500.4100, L100.0100, L502.0250, L506.1000, L500.4050, L503.0105 #### [facility] [address] [place], [address] ALK P 84 U/L Normal 45-117 [facility] Comment on above: Performed By: #### L 500.4100, L100.0100, L502.0250, L506.1000, L500.4050, L503.0105 #### [facility] [address] [place], [address] ALT [Catalytic activity/Vol] 26 U/L Normal 13-56 [facility] Comment on above: Performed By: #### L 500.4100, L100.0100, L502.0250, L506.1000, L500.4050, L503.0105 #### [facility] [address] [place], [address] AST [Catalytic activity/Vol] 27 U/L Normal 15-37 [facility] Comment on above: Performed By: #### L 500.4100, L100.0100, L502.0250, L506.1000, L500.4050, L503.0105 #### [facility] [address] [place], [address] Bilirubin [Mass/Vol] 0.30 mg/dL Normal 0.20-1.00 [facility] Comment on above: Result Comment: For patients on eltrombopag therapy, use of Dimension [place] TBIL is not recommended. Performed By: #### L 500.4100, L100.0100, L502.0250, L506.1000, L500.4050, L503.0105 #### [facility] [address] [place], [address] BUN/CRE 21.8 RATIO High 10-20 [facility] Comment on above: Performed By: #### L 500.4100, L100.0100, L502.0250, L506.1000, L500.4050, L503.0105 #### [facility] [address] [place], [address] CA,Total 9.5 mg/dL Normal 8.5-10.1 [facility] Comment on above: Performed By: #### L 500.4100, L100.0100, L502.0250, L506.1000, L500.4050, L503.0105 #### [facility] [address] [place], [address] Chloride [Moles/Vol] 108 mmol/L High 98-107 [facility] Comment on above: Performed By: #### L 500.4100, L100.0100, L502.0250, L506.1000, L500.4050, L503.0105 #### [facility] [address] [place], [address] CO2 [Moles/Vol] 23.0 mmol/L Normal 21.0-32.0 [facility] Comment on above: Performed By: #### L 500.4100, L100.0100, L502.0250, L506.1000, L500.4050, L503.0105 #### [facility] [address] [place], [address] Creatinine [Mass/Vol] 0.83 mg/dL Normal 0.55-1.02 [facility] Comment on above: Result Comment: The validity of the calculated GFR GFRAA in patients over 70 years has not been determined. Clinical correlation is essential. Performed By: #### L 500.4100, L100.0100, L502.0250, L506.1000, L500.4050, L503.0105 #### [facility] [address] [place], [address] EST GFR - AA 87 mL/min Normal >60 [facility] Comment on above: Result Comment: Afri can [place] GFR Calc Performed By: #### L 500.4100, L100.0100, L502.0250, L506.1000, L500.4050, L503.0105 #### [facility] [address] [place], [address] GAP 6 Normal 5-15 [facility] Comment on above: Performed By: #### L 500.4100, L100.0100, L502.0250, L506.1000, L500.4050, L503.0105 #### [facility] [address] [place], [address] GFR/1.73 sq M.predicted among non-blacks MDRD (S/P/Bld) [Vol rate/Area] 72 mL/min/{1.73_m2} Normal >60 [facility] Comment on above: Result Comment: Non- GFR Calc Performed By: #### L 500.4100, L100.0100, L502.0250, L506.1000, L500.4050, L503.0105 #### [facility] [address] [place], [address] Globulin (S) [Mass/Vol] 4.0 g/dL Normal 2.2-4.2 [facility] Comment on above: Performed By: #### L 500.4100, L100.0100, L502.0250, L506.1000, L500.4050, L503.0105 #### [facility] [address] [place], [address] Glucose [Mass/Vol] 81 mg/dL Normal 74-106 [facility] Comment on above: Performed By: #### L 500.4100, L100.0100, L502.0250, L506.1000, L500.4050, L503.0105 #### [facility] [address] [place], [address] Potassium [Moles/Vol] 3.8 mmol/L Normal 3.5-5.1 [facility] Comment on above: Performed By: #### L 500.4100, L100.0100, L502.0250, L506.1000, L500.4050, L503.0105 #### [facility] [address] [place], [address] Sodium [Moles/Vol] 137 mmol/L Normal 136-145 [facility] Comment on above: Performed By: #### L 500.4100, L100.0100, L502.0250, L506.1000, L500.4050, L503.0105 #### [facility] [address] [place], [address] T PROT 7.7 g/dL Normal 6.4-8.2 [facility] Comment on above: Performed By: #### L 500.4100, L100.0100, L502.0250, L506.1000, L500.4050, L503.0105 #### [facility] [address] [place], [place], [address] Urea nitrogen [Mass/Vol] 18 mg/dL Normal 7-18 [facility] Comment on above: Performed By: #### L 500.4100, L100.0100, L502.0250, L506.1000, L500.4050, L503.0105 #### [facility] [address] [place], [address] Eosinophil percentageOrdered By: Miranda Hester on 08-29-2024 Eosinophils/100 WBC (Bld) 3.9 % 0-5 [facility] Erythrocyte distribution wid th (RBC) [Ratio]Ordered By: Miranda Hester on 08-29-2024 Erythrocyte distribution width (RBC) [Entitic vol] 52.0 fL High 35.1-43.9 [facility] Erythrocyte distribution wid th ratioOrdered By: Miranda Hester on 08-29-2024 Erythrocyte distribution width (RBC) [Ratio] 16.8 % High 11.6-14.6 [facility] Estimated glomerular filtrat ion rate (GFR) AmericanOrdered By: Miranda Hester on 08-29-2024 Estimated GFR (MDRD) Amer 87 mL/min >60 [facility] Comment on above: GFR Calc Glomerular filtration rate ( GFR) estimationOrdered By: Miranda Hester on 08-29-2024 Estimated GFR (MDRD) Non-Af Amer 72 mL/min >60 [facility] Comment on above: Non- GFR Calc Glucose measurementOrdered B y: Miranda Kacie on 08-29-2024 Glucose [Mass/Vol] 81 mg/dL 74-106 [facility] Hematocrit Auto (Bld) [Volum e fraction]Ordered By: Miranda Hester on 08-29-2024 Hematocrit (Bld) [Volume fraction] 37.7 % 37-47 [facility] Hemoglobin measurementOrdere d By: Ольгаsunny Hester on 08-29-2024 Hemoglobin (Bld) [Mass/Vol] 11.6 g/dL Low 12.0-15.0 [facility] High density lipoprotein (HD L) measurementOrdered By: Miranda Hester on 08-29-2024 Cholesterol in HDL [Mass/Vol] 51 mg/dL >40 [facility] Comment on above: The drugs N-Acetylcy steine and Metamizole may falsely depress this assay. Reference Range HDL <40 mg/dL Low HDL Cholesterol HDL >or= 60 mg/dL High HDL Cholesterol Immature granulocytes/100 WB C Auto (Bld)Ordered By: Miranda Hester on 08-29-2024 Immature granulocytes/100 WBC (Bld) 0.300 % 0.0-0.9 [facility] Comment on above: IG% - Immature Granu locytes (promyelocytes, myelocytes and metamyelocytes) > 1% indicates that a LEFT SHIFT is Present. Internal Medicine Office Vis santhosh 08-29-2024 Internal Medicine Office Visit [facility] [address] [place] [address] [place] [address] OFFICE VISIT Date of Service: 08/29/24 MR#: [id number] Acct: [id number] Name: KARYN GONSALES Rep #: [id number] : 1950 Provider: Dr. Miranda barba MD Age/Sex: 74/F [place] [facility] Status: Signed with Addenda ADDENDUM by Dr. Miranda Hester MD on 09/23/24 at 1655 HPI Details: KARYN GONSALES, is a 74 F who presents to the office today for Assessment and Plan Assessment and Plan (1) Lumbar radiculopathy: Status: Chronic (2) Type 2 diabetes mellitus: Status: Chronic Qualifiers: Diabetes mellitus usp insulin use: without meterman use Diabetes mellitus complication status: with other [...] fusion. This will be done at the [facility]. Has had surgeries in the past and [...] M FU Chief Complaint: Follow-up chronic conditions Clinician Oncology Required: No Accompanied by: Self Is patient [...] pain. unabl (more content not included)... Normal [facility] - Chemistry and C hemistry - challengeOrdered By: Miranda Hester on 08-29-2024 AST [Catalytic activity/Vol] 27 U/L 15-37 [facility] - Hematology and Cell countson 08-29-2024 HbA1c (Bld) [Mass fraction] 6.7 % High 4.2-6.3 [facility] Lipid Profileon 08-29-2024 Cholesterol [Mass/Vol] 142 mg/dL Normal 200 [facility] Comment on above: Result Comment: <200 mg/dL Desirable 200-240 mg/dL Borderline >240 mg/dL High Risk Performed By: #### L 500.4100, L100.0100, L502.0250, L506.1000, L500.4050, L503.0105 #### [facility] [address] [place], [place], [address] Cholesterol in HDL [Mass/Vol] 51 mg/dL Normal [facility] Comment on above: Result Comment: The drugs N-Acetylcysteine and Metamizole may falsely depress this assay. Reference Range HDL <40 mg/dL Low HDL Cholesterol HDL >or= 60 mg/dL High HDL Cholesterol Performed By: #### L 500.4100, L100.0100, L502.0250, L506.1000, L500.4050, L503.0105 #### [facility] [address] [place], [address] Cholesterol in LDL [Mass/Vol] 53 mg/dL Normal 0-130 [facility] Comment on above: Performed By: #### L 500.4100, L100.0100, L502.0250, L506.1000, L500.4050, L503.0105 #### [facility] [address] [place], [address] Cholesterol in VLDL [Mass/Vol] 38 mg/dL Normal 5-40 [facility] Comment on above: Performed By: #### L 500.4100, L100.0100, L502.0250, L506.1000, L500.4050, L503.0105 #### [facility] [address] [place], [address] Triglyceride [Mass/Vol] 191 mg/dL Normal [facility] Comment on above: Result Comment: The drugs N-Acetylcysteine and Metamizole may falsely depress this assay. Serum Triglycerides Reference Interval Normal <150 mg/dL Borderline high 150 - 199 mg/dL High 200 - 499 mg/dL Very High > or = 500 mg/dL Performed By: #### L 500.4100, L100.0100, L502.0250, L506.1000, L500.4050, L503.0105 #### [facility] Laboratory [address] [place], [address] Low density lipoprotein (LDL ) cholesterol measurementOrdered By: Miranda Hester on 08-29-2024 Cholesterol in LDL [Mass/Vol] 53 mg/dL 0-130 [facility] Lymphocytes Auto (Unsp spec) [#/Vol]Ordered By: Miranda Hester on 08-29-2024 Lymphocytes (Bld) [#/Vol] 1.99 10*3/uL 0.83-4.5 1 [facility] Lymphocytes/100 WBC Auto (Un sp spec)Ordered By: Miranda Hester on 08-29-2024 Lymphocytes/100 WBC (Bld) 26.8 % 19-41 [facility] MCV (mean corpuscular volume ) determinationOrdered By: Miranda Hester on 08-29-2024 MCV (RBC) [Entitic vol] 85.1 fL 81-99 [facility] Mean corpuscular hemoglobin (MCH) determinationOrdered By: Cesartaylorsvillesunny Rangel on 08-29-2024 MCH (RBC) [Entitic mass] 26.2 pg Low 27.0-32.0 [facility] Mean corpuscular hemoglobin concentration (MCHC) determinationOrdered By: savitaylorsvillesunny Rangel on 08-29-2024 MCHC (RBC) [Mass/Vol] 30.8 g/dL Low 32-36 [facility] Mean platelet volume determi nationOrdered By: Miranda Hester on 08-29-2024 Platelet mean volume (Bld) [Entitic vol] 9.7 fL 6.2-12.0 [facility] Microalb:Creat Ratio,Random URon 08-29-2024 Creatinine [Mass/Vol] 73.80 mg/dL Normal NO RAN GE EST. [facility] Comment on above: Performed By: #### L 500.4100, L100.0100, L502.0250, L506.1000, L500.4050, L503.0105 #### [facility] Laboratory [address] [place], [address] MALB:CRE 14.9 mg/g CRE Normal <30 mg/g CRE [facility] Comment on above: Performed By: #### L 500.4100, L100.0100, L502.0250, L506.1000, L500.4050, L503.0105 #### [facility] Laboratory [address] [place], [place], [id number] MICROALBUMIN,UR 11.0 mg/L Normal NO RANGE EST. [facility] Comment on above: Performed By: #### L 500.4100, L100.0100, L502.0250, L506.1000, L500.4050, L503.0105 #### [facility] [place], [address] Monocyte percentageOrdered B y: Miranda Hester on 08-29-2024 Monocytes/100 WBC (Bld) 7.4 % 0-10 [facility] Neutrophil percentageOrdered By: Miranda Hester on 08-29-2024 Neutrophils/100 WBC (Bld) 60.9 % 47-70 [facility] Nucleated red blood cell per centageOrdered By: Miranda Hester on 08-29-2024 Nucleated RBC/100 WBC (Bld) [Ratio] 0 % 0-5 [facility] Platelet countOrdered By: Cesar Hester on 08-29-2024 Platelets (Bld) [#/Vol] 364 10*3/uL 150-450 [facility] Potassium measurementOrdered By: Miranda Hester on 08-29-2024 Potassium [Moles/Vol] 3.8 mmol/L 3.5-5.1 [facility] RBC Auto (Bld) [#/Vol]Ordere d By: Miranda Hester on 08-29-2024 RBC (Bld) [#/Vol] 4.43 10*6/uL 4.2-5.4 [facility] Random urine microalbumin me asurementOrdered By: Miranda Hester on 08-29-2024 Urine Random Microalbumin 11.0 mg/L NO RANGE EST. [facility] Serum anion gap measurementO rdered By: Miranda Hester on 08-29-2024 Anion gap [Moles/Vol] 6 mmol/L 5-15 [facility] Serum globulin measurementOr dered By: Miranda Hester on 08-29-2024 Globulin (S) [Mass/Vol] 4.0 g/dL 2.2-4.2 [facility] Serum or plasma alanine joshi otransferase (ALT) measurementOrdered By: Miranda Hester on 08-29-2024 ALT [Catalytic activity/Vol] 26 U/L 13-56 [facility] Serum or plasma albumin zarina urement (mass/volume)Ordered By: Miranda Evansmelizaservando on 08-29-2024 Albumin [Mass/Vol] 3.7 g/dL 3.2-5.0 [facility] Serum or plasma alkaline onesimo sphatase measurementOrdered By: Leonroelsunny Evansmelizaservando on 08-29-2024 ALP [Catalytic activity/Vol] 84 U/L 45-117 [facility] Serum or plasma calcium zarina urement (mass/volume)Ordered By: Leonroelsunny Evansmelizaservando on 08-29-2024 Calcium [Mass/Vol] 9.5 mg/dL 8.5-10.1 [facility] Serum or plasma cholesterol measurement (mass/volume)Ordered By: Ольгаsunny Evansradha on 08-29-2024 Cholesterol [Mass/Vol] 142 mg/dL <200 [facility] Comment on above: <200 mg/dL Desirable 200-240 mg/dL Borderline >240 mg/dL High Risk Serum or plasma creatinine m easurement (mass/volume)Ordered By: Miranda Evansmelizaservando on 08-29-2024 Creatinine [Mass/Vol] 0.83 mg/dL 0.55-1.02 [facility] Comment on above: The validity of the calculated GFR & GFRAA in patients over 70 years has not been determined. Clinical correlation is essential. Serum or plasma urea nitroge n measurement (mass/volume)Ordered By: Miranda Evansmelizaservando on 08-29-2024 Urea nitrogen [Mass/Vol] 18 mg/dL 7-18 [facility] Sodium levelOrdered By: Leon neri Nathanmelizaservando on 08-29-2024 Sodium [Moles/Vol] 137 mmol/L 136-145 [facility] Total proteinOrdered By: Jeffservando vásquezsunny Evansmelizaservando on 08-29-2024 Protein [Mass/Vol] 7.7 g/dL 6.4-8.2 [facility] Triglycerides measurementOrd ered By: Cesarsaviroelsunny Evansmelizaservando on 08-29-2024 Triglyceride [Mass/Vol] 191 mg/dL <199 [facility] Comment on above: The drugs N-Acetylcy steine and Metamizole may falsely depress this assay.Serum Triglycerides Reference Interval Normal <150 mg/dL Borderline high 150 - 199 mg/dL High 200 - 499 mg/dL Very High > or = 500 mg/dL Urine albumin/creatinine rat io for detection of microalbuminuriaOrdered By: Miranda Hester on 08-29-2024 Urine Microalbumin/Creatinine Ratio 14.9 mg/g CRE <30 [facility] Urine creatinine measurement (mass/volume)Ordered By: Miranda Hester on 08-29-2024 Creatinine (U) [Mass/Vol] 73.80 mg/dL NO RANGE EST. [facility] Very low density lipoprotein (VLDL) cholesterol measurementOrdered By: Miranda Hester on 08-29-2024 VLDL Cholesterol 38 mg/dL 5-40 [facility] Vitamin B12on 08-29-2024 Cobalamin (Vitamin B12) [Mass/Vol] 1037 pg/mL High 211-911 [facility] Comment on above: Performed By: #### L 500.4100, L100.0100, L502.0250, L506.1000, L500.4050, L503.0105 #### [facility] Laboratory [address] [place], [place], [id number] Vitamin B12 measurementOrder ed By: Miranda Hester on 08-29-2024 Cobalamin (Vitamin B12) [Mass/Vol] 1037 pg/mL High 211-911 [facility] Vitamin D,25 Hydroxyon 08-29 Vitamin D 25-OH 60.6 ng/mL Normal [facility] Comment on above: Result Comment: Abby min D 25(OH) Status Range Deficiency <20 ng/mL (50nmol/L) Insufficiency 20 - 30 ng/mL (50 - 75 nmol/L) Sufficiency 30 - 100 ng/mL (75 - 250 nmol/L) Toxicity >100 ng/mL (>250 nmol/L) Performed By: #### L 500.4100, L100.0100, L502.0250, L506.1000, L500.4050, L503.0105 #### [facility] Laboratory [address] [place], [address] White blood cell (WBC) count Ordered By: Miranda Hester on 08-29-2024 WBC (Bld) [#/Vol] 7.4 10*3/uL 4.4-11.0 [facility] Emergency Department Summary on 07-26-2024 Emergency Department Summary [facility] Medical Records Department [address] [place] [address] Emergency Department Summary 07/26/24 MR#: [id number] Acct: [id number] Name: KARYN GONSALES Rep #: [id number] : 1950 74 From: Hiram Matthew DO [...] symptoms. She also reports that it feels "numb". She states she tried some medications that she had at home to help with symptoms but there was no improvement and therefore she presents for evaluation [facility] Medical History Lumbar radiculopathy Overweight [...] Social History (more content not included)... Normal [facility] Spine Lumbar without Contras ton 07-26-2024 Spine Lumbar without Contrast [facility] Imaging Services [address] [place] [address] Spine Lumbar without Contrast MR#: [id number] Acct: [id number] Name: KARYN GONSALES Rep #: [id number] : 1950 F 74 From: Nadia Dobson MD PCP: Dr. Miranda Hester MD Status: REG ER Study: Spine Lumbar without Contrast Date of Exam: Exam# [id number] Ordering Dr: Hiram Matthew DO [id number] STUDY: CT LUMBAR SPINE WITHOUT CONTRAST REASON [...] Signed: Nadia Dobson MD at 4:54 EST , CC: Dr. Miranda Hester MD; Hiram Matthew DO Associate Professor Of Literature: Signed Normal [facility] CNOVon 12-13-2023 CNOV Office Visit (UCWSTR ) UZMAKARYN J ([id number]) 1950 F Date Time Provider Department 12/13/23 8:15 AM CHERRIE DONIS [facility] During your visit today, we recorded the following information about you: Temperature Pulse Respiration Blood pressure 96.9 degrees 90/minute 21/minute 128/76 Weight 69 kg Cherrie Donis APRN.[employer] 12/13/2023 8:46 AM Signed Subjective HPI HPI Karyn Gonsales is a 73 year old female who presents today for CC of sinus pressure. This started 1 week ago/worsening now. Has tried otc medication for relief. Symptoms are worsened by nothing. Risk factors hx of sinusitis. nonsmoker. Patient not well known to [facility], denies renal/hepatic disease. .Patient presents with: Sinus [...] oropharyngeal e (more content not included)... Normal [facility] Basophil percentageOrdered B y: Miranda Hester on 10-16-2023 Chloride [Moles/Vol] 106 mmol/L 98-107 [facility] Glucose [Mass/Vol] 134 mg/dL 74-106 [facility] Comment on above: Fasting Glucose resu lt greater than or equal to 126 mg/dL suggests DIABETES MELLITUS per A.D.A. criteria. Potassium [Moles/Vol] 4.2 mmol/L 3.5-5.1 [facility] Sodium [Moles/Vol] 138 mmol/L 136-145 [facility] Laboratory - Chemistry and C hemistry - challengeOrdered By: Miranda Hester on 10-16-2023 CO2 [Moles/Vol] 24.0 mmol/L 21.0-32.0 [facility] Cobalamin (Vitamin B12) [Mass/Vol] 867 pg/mL 211-911 [facility] Urea nitrogen/Creatinine [Mass ratio] 21.6 mg/mg 10-20 [facility] Laboratory - Hematology and Cell countson 10-16-2023 HbA1c (Bld) [Mass fraction] 6.2 % 4.2-6.3 [facility] No Panel InformationOrdered By: Miranda Hester on 10-16-2023 Estimated GFR (MDRD) Amer 68 mL/min >60 [facility] Comment on above: GFR Calc Estimated GFR (MDRD) Non-Af Amer 56 mL/min >60 [facility] Comment on above: Non- GFR Calc Vitamin D 25-Hydroxy 76.1 ng/mL [facility] Comment on above: Vitamin D 25(OH) Sta tus Range Deficiency <20 ng/mL (50nmol/L) Insufficiency 20 - 30 ng/mL (50 - 75 nmol/L) Sufficiency 30 - 100 ng/mL (75 - 250 nmol/L) Toxicity >100 ng/mL (>250 nmol/L) Serum or plasma calcium zarina urement (mass/volume)Ordered By: Miranda Hester on 10-16-2023 Calcium [Mass/Vol] 9.7 mg/dL 8.5-10.1 [facility] Serum or plasma creatinine m easurement (mass/volume)Ordered By: Miranda Hester on 10-16-2023 Creatinine [Mass/Vol] 1.02 mg/dL 0.55-1.02 [facility] Comment on above: The validity of the calculated GFR & GFRAA in patients over 70 years has not been determined. Clinical correlation is essential. Serum or plasma urea nitroge n measurement (mass/volume)Ordered By: Miranda Hester on 10-16-2023 Urea nitrogen [Mass/Vol] 22 mg/dL 7-18 [facility] Thin prep Papanicolaou smear with manual screeningOrdered By: Miranda Hester on 10-16-2023 Thin prep Papanicolaou smear with manual screening 8 5-15 [facility] Absolute lymphocyte countOrd ered By: Miranda Hester on 06-29-2023 Lymphocytes Auto (Unsp spec) [#/Vol] 2.70 10*3/uL 0.83-4.51 [facility] Basophil percentageOrdered B y: Miranda Hester on 06-29-2023 Basophils/100 WBC (Bld) 0.6 % 0-1 [facility] Bilirubin [Mass/Vol] 0.30 mg/dL 0.20-1.00 [facility] Comment on above: For patients on eltr ombopag therapy, use of Dimension [place] TBIL is not recommended. Chloride [Moles/Vol] 104 mmol/L 98-107 [facility] Eosinophils/100 WBC (Bld) 1.9 % 0-5 [facility] Glucose [Mass/Vol] 78 mg/dL 74-106 [facility] Neutrophils (Bld) [#/Vol] 4.9 10*3/uL 2.0-7.7 [facility] Neutrophils/100 WBC (Bld) 57.9 % 47-70 [facility] Potassium [Moles/Vol] 4.3 mmol/L 3.5-5.1 [facility] Protein [Mass/Vol] 8.4 g/dL 6.4-8.2 [facility] Sodium [Moles/Vol] 134 mmol/L 136-145 [facility] WBC (Bld) [#/Vol] 8.4 10*3/uL 4.4-11.0 [facility] Blood erythrocytes count (nu mber/volume)Ordered By: Miranda Hester on 06-29-2023 RBC (Bld) [#/Vol] 4.68 10*6/uL 4.2-5.4 [facility] Blood hemoglobin measurement (mass/volume)Ordered By: Miranda Hester on 06-29-2023 Hemoglobin (Bld) [Mass/Vol] 13.2 g/dL 12.0-15.0 [facility] Blood lymphocytes/100 leukoc ytesOrdered By: Miranda Hester on 06-29-2023 Lymphocytes/100 WBC (Bld) 32.1 % 19-41 [facility] Blood monocytes/100 leukocyt esOrdered By: Miranda Hester on 06-29-2023 Monocytes/100 WBC (Bld) 7.0 % 0-10 [facility] Blood platelet mean volumeOr dered By: savitaylorsvillesunny Hester on 06-29-2023 Platelet mean volume (Bld) [Entitic vol] 9.6 fL 6.2-12.0 [facility] Determination of erythrocyte mean corpuscular volume (MCV)Ordered By: Leontaylorsvillesunny Hester on 06-29-2023 MCV (RBC) [Entitic vol] 89.7 fL 81-99 [facility] Hematocrit Auto (Bld) [Volum e fraction]Ordered By: [facility] Evansservando on 06-29-2023 Hematocrit (Bld) [Volume fraction] 42.0 % 37-47 [facility] Laboratory - Chemistry and C hemistry - challengeOrdered By: [facility] Nathanservando on 06-29-2023 ALP [Catalytic activity/Vol] 78 U/L 45-117 [facility] ALT [Catalytic activity/Vol] 24 U/L 13-56 [facility] CO2 [Moles/Vol] 23.0 mmol/L 21.0-32.0 [facility] Globulin (S) [Mass/Vol] 4.4 g/dL 2.2-4.2 [facility] Urea nitrogen/Creatinine [Mass ratio] 22.7 mg/mg 10-20 [facility] Laboratory - Hematology and Cell countsOrdered By: [facility] Evansservando on 06-29-2023 Erythrocyte distribution width (RBC) [Entitic vol] 42.3 fL 35.1-43.9 [facility] Erythrocyte distribution width (RBC) [Ratio] 13.0 % 11.6-14.6 [facility] Immature granulocytes/100 WBC (Bld) 0.500 % 0.0-0.9 [facility] Comment on above: IG% - Immature Granu locytes (promyelocytes, myelocytes and metamyelocytes) > 1% indicates that a LEFT SHIFT is Present. MCH (RBC) [Entitic mass] 28.2 pg 27.0-32.0 [facility] Nucleated RBC/100 WBC (Bld) [Ratio] 0 % 0-5 [facility] [Mass/Vol]Or dered By: Miranda Hester on 06-29-2023 MCHC (RBC) [Mass/Vol] 31.4 g/dL 32-36 [facility] No Panel InformationOrdered By: Miranda Hester on 06-29-2023 Estimated GFR (MDRD) Amer 76 mL/min >60 [facility] Comment on above: GFR Calc Estimated GFR (MDRD) Non-Af Amer 63 mL/min >60 [facility] Comment on above: Non- GFR Calc Platelets bldOrdered By: Jeff Hester on 06-29-2023 Platelets (Bld) [#/Vol] 384 10*3/uL 150-450 [facility] Serum or plasma albumin zarina urement (mass/volume)Ordered By: Miranda Hester on 06-29-2023 Albumin [Mass/Vol] 4.0 g/dL 3.2-5.0 [facility] Serum or plasma albumin/glob ulin mass ratioOrdered By: Miranda Hester on 06-29-2023 Albumin/Globulin [Mass ratio] 0.9 {ratio} 0.9-2.4 [facility] Serum or plasma calcium zarina urement (mass/volume)Ordered By: Miranda Hester on 06-29-2023 Calcium [Mass/Vol] 9.5 mg/dL 8.5-10.1 [facility] Serum or plasma creatinine m easurement (mass/volume)Ordered By: Miranda Hester on 06-29-2023 Creatinine [Mass/Vol] 0.92 mg/dL 0.55-1.02 [facility] Comment on above: The validity of the calculated GFR & GFRAA in patients over 70 years has not been determined. Clinical correlation is essential. Serum or plasma urea nitroge n measurement (mass/volume)Ordered By: Miranda Hester on 06-29-2023 Urea nitrogen [Mass/Vol] 21 mg/dL 7-18 [facility] Thin prep Papanicolaou smear with manual screeningOrdered By: Miranda Hester on 06-29-2023 Thin prep Papanicolaou smear with manual screening 13 U/L 15-37 [facility] Thin prep Papanicolaou smear with manual screening 7 5-15 [facility] Whole blood hemoglobin A1c/t otal hemoglobin ratio (mass fraction)Ordered By: Miranda Hester on 06-29-2023 HbA1c (Bld) [Mass fraction] 6.1 % 3.8-5.6 [facility] Comment on above: Normal < 5.7 % Predi abetic 5.7 - 6.4 % Diabetic >or= 6.5 % Please note range changes. Absolute lymphocyte countOrd ered By: Miranda Hester on 03-27-2023 Lymphocytes Auto (Unsp spec) [#/Vol] 2.42 10*3/uL 0.83-4.51 [facility] Basophil percentageOrdered B y: Ольгаsunny Evansradha on 03-27-2023 Basophils/100 WBC (Bld) 0.3 % 0-1 [facility] Bilirubin [Mass/Vol] 0.30 mg/dL 0.20-1.00 [facility] Comment on above: For patients on eltr ombopag therapy, use of Dimension [place] TBIL is not recommended. Chloride [Moles/Vol] 107 mmol/L 98-107 [facility] Cholesterol [Mass/Vol] 217 mg/dL <200 [facility] Comment on above: <200 mg/dL Desirable 200-240 mg/dL Borderline >240 mg/dL High Risk Eosinophils/100 WBC (Bld) 3.0 % 0-5 [facility] Glucose [Mass/Vol] 69 mg/dL 74-106 [facility] Neutrophils (Bld) [#/Vol] 6.0 10*3/uL 2.0-7.7 [facility] Neutrophils/100 WBC (Bld) 64.1 % 47-70 [facility] Potassium [Moles/Vol] 3.7 mmol/L 3.5-5.1 [facility] Protein [Mass/Vol] 7.7 g/dL 6.4-8.2 [facility] Sodium [Moles/Vol] 139 mmol/L 136-145 [facility] Triglyceride [Mass/Vol] 194 mg/dL <199 [facility] Comment on above: The drugs N-Acetylcy steine and Metamizole may falsely depress this assay.Serum Triglycerides Reference Interval Normal <150 mg/dL Borderline high 150 - 199 mg/dL High 200 - 499 mg/dL Very High > or = 500 mg/dL WBC (Bld) [#/Vol] 9.4 10*3/uL 4.4-11.0 [facility] Blood erythrocytes count (nu mber/volume)Ordered By: Miranda Hester on 03-27-2023 RBC (Bld) [#/Vol] 4.36 10*6/uL 4.2-5.4 [facility] Blood hemoglobin measurement (mass/volume)Ordered By: Miranda Hester on 03-27-2023 Hemoglobin (Bld) [Mass/Vol] 12.5 g/dL 12.0-15.0 [facility] Blood lymphocytes/100 leukoc ytesOrdered By: savitaylorsvillesunny Hester on 03-27-2023 Lymphocytes/100 WBC (Bld) 25.8 % 19-41 [facility] Blood monocytes/100 leukocyt esOrdered By: savitaylorsvillesunny Hester on 03-27-2023 Monocytes/100 WBC (Bld) 6.4 % 0-10 [facility] Blood platelet mean volumeOr dered By: Miranda Hester on 03-27-2023 Platelet mean volume (Bld) [Entitic vol] 10.8 fL 6.2-12.0 [facility] Determination of erythrocyte mean corpuscular volume (MCV)Ordered By: Miranda Hester on 03-27-2023 MCV (RBC) [Entitic vol] 88.3 fL 81-99 [facility] Hematocrit Auto (Bld) [Volum e fraction]Ordered By: Miranda Hester on 03-27-2023 Hematocrit (Bld) [Volume fraction] 38.5 % 37-47 [facility] Laboratory - Chemistry and C hemistry - challengeOrdered By: Miranda Hester on 03-27-2023 ALP [Catalytic activity/Vol] 72 U/L 45-117 [facility] ALT [Catalytic activity/Vol] 24 U/L 13-56 [facility] CO2 [Moles/Vol] 21.0 mmol/L 21.0-32.0 [facility] Globulin (S) [Mass/Vol] 4.0 g/dL 2.2-4.2 [facility] Urea nitrogen/Creatinine [Mass ratio] 16.3 mg/mg 10-20 [facility] Laboratory - Hematology and Cell countsOrdered By: Miranda Hester on 03-27-2023 Erythrocyte distribution width (RBC) [Entitic vol] 45.1 fL 35.1-43.9 [facility] Erythrocyte distribution width (RBC) [Ratio] 14.1 % 11.6-14.6 [facility] Immature granulocytes/100 WBC (Bld) 0.400 % 0.0-0.9 [facility] Comment on above: IG% - Immature Granu locytes (promyelocytes, myelocytes and metamyelocytes) > 1% indicates that a LEFT SHIFT is Present. MCH (RBC) [Entitic mass] 28.7 pg 27.0-32.0 [facility] Nucleated RBC/100 WBC (Bld) [Ratio] 0 % 0-5 [facility] Laboratory - Hematology and Cell countson 03-27-2023 HbA1c (Bld) [Mass fraction] 6.3 % 4.2-6.3 [facility] MCHC Auto (RBC) [Mass/Vol]Or dered By: Miranda Hester on 03-27-2023 MCHC (RBC) [Mass/Vol] 32.5 g/dL 32-36 [facility] No Panel InformationOrdered By: Miranda Hester on 03-27-2023 Estimated GFR (MDRD) Amer 52 mL/min >60 [facility] Comment on above: GFR Calc Estimated GFR (MDRD) Non-Af Amer 43 mL/min >60 [facility] Comment on above: Non- GFR Calc Urine Microalbumin/Creatinine Ratio 61.1 mg/g CRE <30 [facility] Platelets bldOrdered By: Jeff Hester on 03-27-2023 Platelets (Bld) [#/Vol] 262 10*3/uL 150-450 [facility] Serum or plasma albumin zarina urement (mass/volume)Ordered By: Miranda Hester on 03-27-2023 Albumin [Mass/Vol] 3.7 g/dL 3.2-5.0 [facility] Serum or plasma albumin/glob ulin mass ratioOrdered By: Miranda Hester on 03-27-2023 Albumin/Globulin [Mass ratio] 0.9 {ratio} 0.9-2.4 [facility] Serum or plasma calcium zarina urement (mass/volume)Ordered By: Miranda Hester on 03-27-2023 Calcium [Mass/Vol] 9.3 mg/dL 8.5-10.1 [facility] Serum or plasma cholesterol in HDL measurement (mass/volume)Ordered By: Miranda Hester on 03-27-2023 Cholesterol in HDL [Mass/Vol] 45 mg/dL >40 [facility] Comment on above: The drugs N-Acetylcy steine and Metamizole may falsely depress this assay. Reference Range HDL <40 mg/dL Low HDL Cholesterol HDL >or= 60 mg/dL High HDL Cholesterol Serum or plasma cholesterol in VLDL measurement (mass/volume)Ordered By: Miranda Hester on 03-27-2023 Cholesterol in VLDL [Mass/Vol] 39 mg/dL 5-40 [facility] Serum or plasma creatinine m easurement (mass/volume)Ordered By: Miranda Hester on 03-27-2023 Creatinine [Mass/Vol] 1.29 mg/dL 0.55-1.02 [facility] Comment on above: The validity of the calculated GFR & GFRAA in patients over 70 years has not been determined. Clinical correlation is essential. Serum or plasma low density lipoprotein (LDL) cholesterol measurement (mass/volume)Ordered By: Miranda Hester on 03-27-2023 Cholesterol in LDL [Mass/Vol] 133 mg/dL 0-130 [facility] Serum or plasma urea nitroge n measurement (mass/volume)Ordered By: Miranda Hester on 03-27-2023 Urea nitrogen [Mass/Vol] 21 mg/dL 7-18 [facility] Thin prep Papanicolaou smear with manual screeningOrdered By: Miranda Hester 03-27-2023 Thin prep Papanicolaou smear with manual screening 17 U/L 15-37 [facility] Thin prep Papanicolaou smear with manual screening 11 5-15 [facility] Thin prep Papanicolaou smear with manual screening 91.6 mg/L NO RANGE EST. [facility] Urine creatinine measurement (mass/volume)Ordered By: Miranda Hester on 03-27-2023 Creatinine (U) [Mass/Vol] 150.00 mg/dL NO RANGE EST. [facility] SPENCER SCREENING W Marvin 03-25 [facility] Iron measurement (mass/mass) Ordered By: Dr. Hester on 10-24-2022 Iron (Unsp spec) [Mass/Mass] 42 ug/dL 50-170 [facility] Laboratory - Chemistry and C hemistry - challengeOrdered By: Dr. Hester on 10-24-2022 Cobalamin (Vitamin B12) [Mass/Vol] 992 pg/mL 211-911 [facility] No Panel InformationOrdered By: Dr. Hester on 10-24-2022 Total Iron Binding Capacity 519 ug/dL 250-450 [facility] Serum or plasma ferritin luly surement (mass/volume)Ordered By: Dr. Hester on 10-24-2022 Ferritin [Mass/Vol] 6 ng/mL 8-252 [facility] Serum or plasma folate measu rement (mass/volume)Ordered By: Dr. Hester on 10-24-2022 Folate [Mass/Vol] 9.50 ng/mL 3.1-55.4 [facility] Laboratory - Hematology and Cell countson 10-22-2022 HbA1c (Bld) [Mass fraction] 6.3 % 4.2-6.3 [facility] Absolute lymphocyte countOrd ered By: Dr. Lockett on 10-16-2022 Lymphocytes Auto (Unsp spec) [#/Vol] 2.38 10*3/uL 0.83-4.51 [facility] Basophil percentageOrdered B y: Dr. Lockett on 10-16-2022 Basophils/100 WBC (Bld) 0.5 % 0-1 [facility] Eosinophils/100 WBC (Bld) 2.1 % 0-5 [facility] Neutrophils (Bld) [#/Vol] 5.1 10*3/uL 2.0-7.7 [facility] Neutrophils/100 WBC (Bld) 62.6 % 47-70 [facility] WBC (Bld) [#/Vol] 8.2 10*3/uL 4.4-11.0 [facility] Blood erythrocytes count (nu mber/volume)Ordered By: Dr. Lockett on 10-16-2022 RBC (Bld) [#/Vol] 4.32 10*6/uL 4.2-5.4 [facility] Blood hemoglobin measurement (mass/volume)Ordered By: Dr. Lockett on 10-16-2022 Hemoglobin (Bld) [Mass/Vol] 10.6 g/dL 12.0-15.0 [facility] Blood lymphocytes/100 leukoc ytesOrdered By: Dr. Lockett on 10-16-2022 Lymphocytes/100 WBC (Bld) 29.2 % 19-41 [facility] Blood monocytes/100 leukocyt esOrdered By: Dr. Lockett on 10-16-2022 Monocytes/100 WBC (Bld) 5.2 % 0-10 [facility] Blood platelet mean volumeOr dered By: Dr. Lockett on 10-16-2022 Platelet mean volume (Bld) [Entitic vol] 9.8 fL 6.2-12.0 [facility] Determination of erythrocyte mean corpuscular volume (MCV)Ordered By: Dr. Lockett on 10-16-2022 MCV (RBC) [Entitic vol] 82.6 fL 81-99 [facility] Erythrocyte sedimentation ra teOrdered By: Dr. Lockett on 10-16-2022 ESR (Bld) [Velocity] 27 mm/h 0-30 [facility] Hematocrit Auto (Bld) [Volum e fraction]Ordered By: Dr. Lockett on 10-16-2022 Hematocrit (Bld) [Volume fraction] 35.7 % 37-47 [facility] Laboratory - Hematology and Cell countsOrdered By: Dr. Lockett on 10-16-2022 Erythrocyte distribution width (RBC) [Entitic vol] 43.3 fL 35.1-43.9 [facility] Erythrocyte distribution width (RBC) [Ratio] 14.4 % 11.6-14.6 [facility] Immature granulocytes/100 WBC (Bld) 0.400 % 0.0-0.9 [facility] Comment on above: IG% - Immature Granu locytes (promyelocytes, myelocytes and metamyelocytes) > 1% indicates that a LEFT SHIFT is Present. MCH (RBC) [Entitic mass] 24.5 pg 27.0-32.0 [facility] Nucleated RBC/100 WBC (Bld) [Ratio] 0 % 0-5 [facility] MCHC Auto (RBC) [Mass/Vol]Or dered By: Dr. Lockett on 10-16-2022 MCHC (RBC) [Mass/Vol] 29.7 g/dL 32-36 [facility] Platelets bldOrdered By: Dr. Lockett on 10-16-2022 Platelets (Bld) [#/Vol] 343 10*3/uL 150-450 [facility] Serum or plasma C reactive p rotein measurement (mass/volume)Ordered By: Dr. Lockett on 10-16-2022 CRP [Mass/Vol] mg/L 0.0-3.0 [facility] Comment on above: C-Reactive Protein ( CRP) provides useful information for thediagnosis, therapy and monitoring of inflammatory processesand associated diseases. For the evaluation of Relative Riskfor Cardiovascular Disease, a High Sensitivity CRP (HSCRP)should be ordered. Absolute lymphocyte counton 01-20-2022 Lymphocytes Auto (Unsp spec) [#/Vol] 2.64 10*3/uL 0.83-4.51 [facility] Work Phone: Basophil percentageon 2021 Basophils/100 WBC (Bld) 0.5 % 0-1 [facility] Work Phone: Bilirubin [Mass/Vol] 0.40 mg/dL 0.20-1.00 [facility] Work Phone: Comment on above: For patients on eltr ombopag therapy, use of Dimension [place] TBIL is not recommended. Chloride [Moles/Vol] 104 mmol/L 98-107 [facility] Work Phone: Cholesterol [Mass/Vol] 120 mg/dL <200 [facility] Work Phone: Comment on above: <200 mg/dL Desirable 200-240 mg/dL Borderline >240 mg/dL High Risk Eosinophils/100 WBC (Bld) 2.2 % 0-5 [facility] Work Phone: Glucose [Mass/Vol] 91 mg/dL 74-106 [facility] Work Phone: Neutrophils (Bld) [#/Vol] 5.3 10*3/uL 2.0-7.7 [facility] Work Phone: Neutrophils/100 WBC (Bld) 60.3 % 47-70 [facility] Work Phone: Potassium [Moles/Vol] 4.0 mmol/L 3.5-5.1 [facility] Work Phone: Protein [Mass/Vol] 7.7 g/dL 6.4-8.2 [facility] Work Phone: Sodium [Moles/Vol] 136 mmol/L 136-145 [facility] Work Phone: Triglyceride [Mass/Vol] 145 mg/dL [facility] Work Phone: Comment on above: The drugs N-Acetylcy steine and Metamizole may falsely depress this assay.Serum Triglycerides Reference Interval Normal <150 mg/dL Borderline high 150 - 199 mg/dL High 200 - 499 mg/dL Very High > or = 500 mg/dL WBC (Bld) [#/Vol] 8.8 10*3/uL 4.4-11.0 [facility] Work Phone: Blood erythrocytes count (nu mber/volume)on 01-20-2022 RBC (Bld) [#/Vol] 4.34 10*6/uL 4.2-5.4 [facility] Work Phone: Blood hemoglobin measurement (mass/volume)on 01-20-2022 Hemoglobin (Bld) [Mass/Vol] 11.6 g/dL 12.0-15.0 [facility] Work Phone: Blood lymphocytes/100 leukoc yteson 01-20-2022 Lymphocytes/100 WBC (Bld) 30.0 % 19-41 [facility] Work Phone: Blood monocytes/100 leukocyt eson 01-20-2022 Monocytes/100 WBC (Bld) 6.8 % 0-10 [facility] Work Phone: Blood platelet mean volumeon 01-20-2022 Platelet mean volume (Bld) [Entitic vol] 9.8 fL 6.2-12.0 [facility] Work Phone: Determination of erythrocyte mean corpuscular volume (MCV)on 01-20-2022 MCV (RBC) [Entitic vol] 85.5 fL 81-99 [facility] Work Phone: Hematocrit Auto (Bld) [Volum e fraction]on 01-20-2022 Hematocrit (Bld) [Volume fraction] 37.1 % 37-47 [facility] Work Phone: Laboratory - Chemistry and C hemistry - challengeon 01-20-2022 ALP [Catalytic activity/Vol] 58 U/L 45-117 [facility] Work Phone: ALT [Catalytic activity/Vol] 25 U/L 13-56 [facility] Work Phone: CO2 [Moles/Vol] 24.0 mmol/L 21.0-32.0 [facility] Work Phone: Cobalamin (Vitamin B12) [Mass/Vol] 987 pg/mL 211-911 [facility] Work Phone: Globulin (S) [Mass/Vol] 3.9 g/dL 2.2-4.2 [facility] Work Phone: Urea nitrogen/Creatinine [Mass ratio] 17.6 mg/mg 10-20 [facility] Work Phone: Laboratory - Hematology and Cell countson 01-20-2022 HbA1c (Bld) [Mass fraction] 6.3 % [facility] Work Phone: Erythrocyte distribution width (RBC) [Entitic vol] 47.7 fL 35.1-43.9 [facility] Work Phone: Erythrocyte distribution width (RBC) [Ratio] 15.1 % 11.6-14.6 [facility] Work Phone: Immature granulocytes/100 WBC (Bld) 0.200 % 0.0-0.9 [facility] Work Phone: Comment on above: IG% - Immature Granu locytes (promyelocytes, myelocytes and metamyelocytes) > 1% indicates that a LEFT SHIFT is Present. MCH (RBC) [Entitic mass] 26.7 pg 27.0-32.0 [facility] Work Phone: Nucleated RBC/100 WBC (Bld) [Ratio] 0 % 0-5 [facility] Work Phone: MCHC Auto (RBC) [Mass/Vol]on 01-20-2022 MCHC (RBC) [Mass/Vol] 31.3 g/dL 32-36 [facility] Work Phone: No Panel Informationon 01-20 Estimated GFR (MDRD) Amer 73 mL/min >60 [facility] Work Phone: Comment on above: GFR Calc Estimated GFR (MDRD) Non-Af Amer 60 mL/min >60 [facility] Work Phone: Comment on above: Non- GFR Calc Vitamin D 25-Hydroxy 63.8 ng/mL [facility] Work Phone: Comment on above: Vitamin D 25(OH) Sta tus Range Deficiency <20 ng/mL (50nmol/L) Insufficiency 20 - 30 ng/mL (50 - 75 nmol/L) Sufficiency 30 - 100 ng/mL (75 - 250 nmol/L) Toxicity >100 ng/mL (>250 nmol/L) Platelets bldon 01-20-2022 Platelets (Bld) [#/Vol] 325 10*3/uL 150-450 [facility] Work Phone: Serum or plasma albumin zarina urement (mass/volume)on 01-20-2022 Albumin [Mass/Vol] 3.8 g/dL 3.2-5.0 [facility] Work Phone: Serum or plasma albumin/glob ulin mass ratioon 01-20-2022 Albumin/Globulin [Mass ratio] 1.0 {ratio} 0.9-2.4 [facility] Work Phone: Serum or plasma calcium zarina urement (mass/volume)on 01-20-2022 Calcium [Mass/Vol] 9.3 mg/dL 8.5-10.1 [facility] Work Phone: Serum or plasma cholesterol in HDL measurement (mass/volume)on 01-20-2022 Cholesterol in HDL [Mass/Vol] 43 mg/dL [facility] Work Phone: Comment on above: The drugs N-Acetylcy steine and Metamizole may falsely depress this assay. Reference Range HDL <40 mg/dL Low HDL Cholesterol HDL >or= 60 mg/dL High HDL Cholesterol Serum or plasma cholesterol in VLDL measurement (mass/volume)on 01-20-2022 Cholesterol in VLDL [Mass/Vol] 29 mg/dL 5-40 [facility] Work Phone: Serum or plasma creatinine m easurement (mass/volume)on 01-20-2022 Creatinine [Mass/Vol] 0.96 mg/dL 0.55-1.02 [facility] Work Phone: Comment on above: The validity of the calculated GFR & GFRAA in patients over 70 years has not been determined. Clinical correlation is essential. Serum or plasma low density lipoprotein (LDL) cholesterol measurement (mass/volume)on 01-20-2022 Cholesterol in LDL [Mass/Vol] 48 mg/dL 0-130 [facility] Work Phone: Serum or plasma urea nitroge n measurement (mass/volume)on 01-20-2022 Urea nitrogen [Mass/Vol] 17 mg/dL 7-18 [facility] Work Phone: Thin prep Papanicolaou smear with manual screeningon 01-20-2022 Thin prep Papanicolaou smear with manual screening 19 U/L 15-37 [facility] Work Phone: Thin prep Papanicolaou smear with manual screening 8 5-15 [facility] Work Phone: US BREAST LTD LTon [facility] Basic metabolic 2000 panelon 12-30-2021 Anion gap [Moles/Vol] 10 mmol/L 9 - 18 mmol/L [facility] Calcium [Mass/Vol] 9.1 mg/dL 8.5 - 10. 2 mg/dL [facility] Chloride [Moles/Vol] 100 mmol/L 97 - 10 5 mmol/L [facility] CO2 [Moles/Vol] 25 mmol/L 22 - 30 mmol/L [facility] Creatinine [Mass/Vol] 0.78 mg/dL 0.58 - 0.96 mg/dL [facility] Estimated Glomerular Filtration Rate 81 mL/min/1.73m >=60 mL/min/1.73 m [facility] Glucose [Mass/Vol] 105 mg/dL High 74 - 99 mg/dL [facility] Potassium [Moles/Vol] 4.3 mmol/L 3.7 - 5.1 mmol/L [facility] Sodium [Moles/Vol] 135 mmol/L Low 136 - 144 mmol/L [facility] Urea nitrogen [Mass/Vol] 17 mg/dL 7 - 21 mg/dL [facility] Laboratory - Hematology and Cell countson 10-28-2021 HbA1c (Bld) [Mass fraction] 8.1 % [facility] Work Phone: Vital Signs Date Time Vital Sign Value Performing Clinician Facility 06-09-2025 08:05-0400 Body height 157 cm Darin Covington MD Work Phone: [facility] 06-09-2025 08:05-0400 Body height 157.48 cm Darin Covington MD Work Phone: [facility] 06-09-2025 08:05-0400 Body mass index (BMI) [Ratio] 27.53 kg/m2 Darin Covington MD Work Phone: [facility] 06-09-2025 08:05-0400 Body weight 68 kg Darin Covington MD Work Phone: [facility] 06-09-2025 08:05-0400 Body weight 68.04 kg Darin Covington MD Work Phone: [facility] 06-09-2025 08:05-0400 BP SITE #1 Darin Covington MD Work Phone: [facility] 06-09-2025 08:05-0400 Diastolic blood pressure 80 mm[Hg] Darin Covington MD Work Phone: [facility] 06-09-2025 08:05-0400 Heart rate 93 /min Darin Covington MD Work Phone: [facility] 06-09-2025 08:05-0400 HGHTCHNVIS Darin Covington MD Work Phone: [facility] 06-09-2025 08:05-0400 Systolic blood pressure 119 mm[Hg] Darin Covington MD Work Phone: [facility] 06-09-2025 08:05-0400 VITALSDONE Darin Covington MD Work Phone: [facility] 06-05-2025 13:07-0400 Body temperature 97.8 [degF] Dr. Harriett Draper MD Work Phone: [facility] 06-05-2025 13:07-0400 Diastolic blood pressure 79 mm[Hg] Dr. Harriett Draper MD Work Phone: [facility] 06-05-2025 13:07-0400 Heart rate 66 /min Dr. Harriett Draper MD Work Phone: [facility] 06-05-2025 13:07-0400 Respiratory rate 14 /min Dr. Harriett Draper MD Work Phone: [facility] 06-05-2025 13:07-0400 SaO2% (BldA) [Mass fraction] 100 % Dr. Harriett Draper MD Work Phone: [facility] 06-05-2025 13:07-0400 Systolic blood pressure 108 mm[Hg] Dr. Harriett Draper MD Work Phone: [facility] 06-05-2025 05:27-0400 Body height 157.[address] Harriett Draper MD Work Phone: [facility] 05-09-2025 13:57-0400 Body height 157.5 cm Yajaira Joseph MD Work Phone: [facility] 05-09-2025 13:57-0400 Body mass index (BMI) [Ratio] 28.48 kg/m2 Yajaira Joseph MD Work Phone: [facility] 05-09-2025 13:57-0400 Body temperature 97.81 [degF] Yajaira Joseph MD Work Phone: [facility] 05-09-2025 13:57-0400 Body weight 70.63 kg Yajaira Joseph MD Work Phone: [facility] 03-24-2025 08:52-0400 Body height 157 cm Darin Covington MD Work Phone: [facility] 03-24-2025 08:52-0400 Body height 157.48 cm Darin Covington MD Work Phone: [facility] 03-24-2025 08:52-0400 Body mass index (BMI) [Ratio] 27.17 kg/m2 Darin Covington MD Work Phone: [facility] 03-24-2025 08:52-0400 Body weight 67 kg Darin Covington MD Work Phone: [facility] 03-24-2025 08:52-0400 Body weight 67.13 kg Darin Covington MD Work Phone: [facility] 03-24-2025 08:52-0400 BP SITE #1 Darin Covington MD Work Phone: [facility] 03-24-2025 08:52-0400 Diastolic blood pressure 65 mm[Hg] Darin Covington MD Work Phone: [facility] 03-24-2025 08:52-0400 Heart rate 91 /min Darin Covington MD Work Phone: [facility] 03-24-2025 08:52-0400 HGHTCHNVIS Darin Covington MD Work Phone: [facility] 03-24-2025 08:52-0400 Systolic blood pressure 114 mm[Hg] Darin Covington MD Work Phone: [facility] 03-24-2025 08:52-0400 VITALSDONE Darin Covington MD Work Phone: [facility] 03-13-2025 08:23-0400 Body height 157.[address] Harriett Draper MD Work Phone: [facility] 03-13-2025 08:23-0400 Body mass index (BMI) [Ratio] 26.9 kg/m2 Dr. Harriett Draper MD Work Phone: [facility] 03-13-2025 08:23-0400 Body temperature 97.6 [degF] Dr. Harriett Draper MD Work Phone: [facility] 03-13-2025 08:23-0400 Body weight 66.[address] Harriett Draper MD Work Phone: [facility] 03-13-2025 08:23-0400 Diastolic blood pressure 70 mm[Hg] Dr. Harriett Draper MD Work Phone: [facility] 03-13-2025 08:23-0400 Heart rate 80 /min Dr. Harriett Draper MD Work Phone: [facility] 03-13-2025 08:23-0400 Respiratory rate 16 /min Dr. Harriett Draper MD Work Phone: [facility] 03-13-2025 08:23-0400 SaO2% (BldA) [Mass fraction] 98 % Dr. Harriett Draper MD Work Phone: [facility] 03-13-2025 08:23-0400 Systolic blood pressure 120 mm[Hg] Dr. Harriett Draper MD Work Phone: [facility] 12-05-2024 08:52-0400 Body height 154.[address] Harriett Draper MD Work Phone: [facility] 12-05-2024 08:52-0400 Body mass index (BMI) [Ratio] 26.8 kg/m2 Dr. Harriett Draper MD Work Phone: [facility] 12-05-2024 08:52-0400 Body temperature 97.1 [degF] Dr. Harriett Draper MD Work Phone: [facility] 12-05-2024 08:52-0400 Body weight 64.[address] Harreitt Draper MD Work Phone: [facility] 12-05-2024 08:52-0400 Diastolic blood pressure 60 mm[Hg] Dr. Harriett Draper MD Work Phone: [facility] 12-05-2024 08:52-0400 Heart rate 56 /min Dr. Harriett Draper MD Work Phone: [facility] 12-05-2024 08:52-0400 Respiratory rate 14 /min Dr. Harriett Draper MD Work Phone: [facility] 12-05-2024 08:52-0400 Systolic blood pressure 110 mm[Hg] Dr. Harriett Draper MD Work Phone: [facility] 09-13-2024 08:58-0500 Body mass index (BMI) [Ratio] 26 kg/m2 Chanda Ocasio REFINERY OPERATOR [employer] Work Phone: [facility] 09-13-2024 08:58-0500 Body temperature 97.39 [degF] Chanda Ocasio REFINERY OPERATOR [employer] Work Phone: [facility] 09-13-2024 08:58-0500 Body weight 64.9 kg Chanda Ocasio REFINERY OPERATOR [employer] Work Phone: [facility] 09-13-2024 08:58-0500 Diastolic blood pressure 79 mm[Hg] Chanda Ocasio REFINERY OPERATOR [employer] Work Phone: [facility] 09-13-2024 08:58-0500 Heart rate 92 /min Chanda Ocasio REFINERY OPERATOR [employer] Work Phone: [facility] 09-13-2024 08:58-0500 SaO2% (BldA) [Mass fraction] 98 % Chanda Ocasio REFINERY OPERATOR [employer] Work Phone: [facility] 09-13-2024 08:58-0500 Systolic blood pressure 124 mm[Hg] Chanda Ocasio REFINERY OPERATOR [employer] Work Phone: [facility] 08-29-2024 09:05-0500 Body mass index (BMI) [Ratio] 26.8 kg/m2 Dr. Harriett Draper MD Work Phone: [facility] 08-29-2024 09:05-0500 Body temperature 97.6 [degF] Dr. Harriett Draper MD Work Phone: [facility] 08-29-2024 09:05-0500 Body weight 64.[address] Harriett Draper MD Work Phone: [facility] 08-29-2024 09:05-0500 Diastolic blood pressure 86 mm[Hg] Dr. Harriett Draper MD Work Phone: [facility] 08-29-2024 09:05-0500 Heart rate 100 /min Dr. Harriett Draper MD Work Phone: [facility] 08-29-2024 09:05-0500 Respiratory rate 16 /min Dr. Harriett Draper MD Work Phone: [facility] 08-29-2024 09:05-0500 SaO2% (BldA) [Mass fraction] 98 % Dr. Harriett Draper MD Work Phone: [facility] 08-29-2024 09:05-0500 Systolic blood pressure 128 mm[Hg] Dr. Harriett Draper MD Work Phone: [facility] 12-13-2023 08:24-0400 Body temperature 96.91 [degF] Cherrie Gagandeep REFINERY OPERATOR [employer] Work Phone: [facility] 12-13-2023 08:24-0400 Body weight 69 kg Cherrie Gagandeep REFINERY OPERATOR [employer] Work Phone: [facility] 12-13-2023 08:24-0400 Diastolic blood pressure 76 mm[Hg] Cherrie Gagandeep REFINERY OPERATOR [employer] Work Phone: [facility] 12-13-2023 08:24-0400 Heart rate 90 /min Cherrie Gagandeep REFINERY OPERATOR [employer] Work Phone: [facility] 12-13-2023 08:24-0400 Respiratory rate 21 /min Cherrie Gagandeep REFINERY OPERATOR [employer] Work Phone: [facility] 12-13-2023 08:24-0400 SaO2% (BldA) [Mass fraction] 97 % Cherrie Gagandeep REFINERY OPERATOR [employer] Work Phone: [facility] 12-13-2023 08:24-0400 Systolic blood pressure 128 mm[Hg] Cherrie Gagandeep REFINERY OPERATOR [employer] Work Phone: [facility] 12-02-2023 09:15-0400 Body height 154.[address] Miranda Hester Work Phone: [facility] 10-16-2023 08:22-0500 Body height 154.[address] Miranda Hester Work Phone: [facility] 10-16-2023 08:22-0500 Body mass index (BMI) [Ratio] 27.6 kg/m2 Dr. Miranda Hester Work Phone: [facility] 10-16-2023 08:22-0500 Body temperature 96.7 [degF] Dr. Miranda Hester Work Phone: [facility] 10-16-2023 08:22-0500 Body weight 66.[address] Miranda Hester Work Phone: [facility] 10-16-2023 08:22-0500 Diastolic blood pressure 76 mm[Hg] Dr. Miranda Hester Work Phone: [facility] 10-16-2023 08:22-0500 Heart rate 88 /min Dr. Miranda Hester Work Phone: [facility] 10-16-2023 08:22-0500 Respiratory rate 16 /min Dr. Miranda Hester Work Phone: [facility] 10-16-2023 08:22-0500 SaO2% (BldA) [Mass fraction] 99 % Dr. Miranda Hester Work Phone: [facility] 10-16-2023 08:22-0500 Systolic blood pressure 110 mm[Hg] Dr. Miranda Hester Work Phone: [facility] 07-27-2023 03:40-0500 Body height 154.[address] Miranda Hester Work Phone: [facility] 07-27-2023 03:40-0500 Body mass index (BMI) [Ratio] 28.2 kg/m2 Dr. Miranda Hester Work Phone: [facility] 07-27-2023 03:40-0500 Body temperature 95.9 [degF] Dr. Miranda Hester Work Phone: [facility] 07-27-2023 03:40-0500 Body weight 67.[address] Miranda Hester Work Phone: [facility] 07-27-2023 03:40-0500 Diastolic blood pressure 89 mm[Hg] Dr. Miranda Hester Work Phone: [facility] 07-27-2023 03:40-0500 Heart rate 120 /min Dr. Miranda Hester Work Phone: [facility] 07-27-2023 03:40-0500 Respiratory rate 15 /min Dr. Miranda Hester Work Phone: [facility] 07-27-2023 03:40-0500 SaO2% (BldA) [Mass fraction] 100 % Dr. Miranda Hester Work Phone: [facility] 07-27-2023 03:40-0500 Systolic blood pressure 174 mm[Hg] Dr. Miranda Hester Work Phone: [facility] 06-29-2023 08:07-0400 Body height 154.[address] Miranda Hester Work Phone: [facility] 06-29-2023 08:07-0400 Body mass index (BMI) [Ratio] 27.9 kg/m2 Dr. Miranda Hester Work Phone: [facility] 06-29-2023 08:07-0400 Body temperature 95.4 [degF] Dr. Miranda Hester Work Phone: [facility] 06-29-2023 08:07-0400 Body weight 67.[address] Miranda Hester Work Phone: [facility] 06-29-2023 08:07-0400 Diastolic blood pressure 70 mm[Hg] Dr. Miranda Hester Work Phone: [facility] 06-29-2023 08:07-0400 Heart rate 98 /min Dr. Miranda Hester Work Phone: [facility] 06-29-2023 08:07-0400 SaO2% (BldA) [Mass fraction] 97 % Dr. Miranda Hester Work Phone: [facility] 06-29-2023 08:07-0400 Systolic blood pressure 112 mm[Hg] Dr. Miranda Hester Work Phone: [facility] 03-27-2023 14:04-0400 Body height 154.[address] Miranda Hester Work Phone: [facility] 03-27-2023 14:04-0400 Body mass index (BMI) [Ratio] 29.2 kg/m2 Dr. Miranda Hester Work Phone: [facility] 03-27-2023 14:04-0400 Body temperature 96.9 [degF] Dr. Miranda Hester Work Phone: [facility] 03-27-2023 14:04-0400 Body weight 70.[address] Miranda Hester Work Phone: [facility] 03-27-2023 14:04-0400 Diastolic blood pressure 68 mm[Hg] Dr. Miranda Hester Work Phone: [facility] 03-27-2023 14:04-0400 Heart rate 84 /min Dr. Miranda Hester Work Phone: [facility] 03-27-2023 14:04-0400 Respiratory rate 16 /min Dr. Miranda Hester Work Phone: [facility] 03-27-2023 14:04-0400 SaO2% (BldA) [Mass fraction] 98 % Dr. Miranda Hester Work Phone: [facility] 03-27-2023 14:04-0400 Systolic blood pressure 108 mm[Hg] Dr. Miranda Hester Work Phone: [facility] 03-11-2023 09:08-0400 Body mass index (BMI) [Ratio] 29.1 kg/m2 Dr. Miranda Hester Work Phone: [facility] 03-11-2023 09:08-0400 Body temperature 97.4 [degF] Dr. Miranda Hester Work Phone: [facility] 03-11-2023 09:08-0400 Body weight 69.[address] Miranda Hester Work Phone: [facility] 03-11-2023 09:08-0400 Diastolic blood pressure 78 mm[Hg] Dr. Miranda Hester Work Phone: [facility] 03-11-2023 09:08-0400 Heart rate 104 /min Dr. Miranda Hester Work Phone: [facility] 03-11-2023 09:08-0400 Respiratory rate 18 /min Dr. Miranda Hester Work Phone: [facility] 03-11-2023 09:08-0400 SaO2% (BldA) [Mass fraction] 98 % Dr. Miranda Hester Work Phone: [facility] 03-11-2023 09:08-0400 Systolic blood pressure 122 mm[Hg] Dr. Miranda Hester Work Phone: [facility] 03-05-2023 19:15-0400 Body temperature 97.7 [degF] Amy Keita APRN.CNP Work Phone: [facility] 03-05-2023 19:15-0400 Body weight 68.95 kg Amy Keita REFINERY OPERATOR [employer] Work Phone: [facility] [facility] 03-05-2023 19:15-0400 Diastolic blood pressure 84 mm[Hg] Amy Keita REFINERY OPERATOR HELPER CRACKING UNIT.POCKET CLOSER Work Phone: [facility] 03-05-2023 19:15-0400 Heart rate 70 /min Amy Keita REFINERY OPERATOR HELPER [employer]ING UNIT.POCKET CLOSER Work Phone: [facility] 03-05-2023 19:15-0400 Respiratory rate 16 /min Amy Keita REFINERY OPERATOR HEL[employer]ING UNIT.POCKET CLOSER Work Phone: [facility] 03-05-2023 19:15-0400 SaO2% (BldA) [Mass fraction] 98 % Amy Keita REFINERY OPERATOR HEL[employer]ING UNIT.POCKET CLOSER Work Phone: [facility] 03-05-2023 19:15-0400 Systolic blood pressure 136 mm[Hg] Amy Keita REFINERY OPERATOR HELPER [employer]ING UNIT.POCKET CLOSER Work Phone: [facility] 03-02-2023 07:16-0400 Body temperature 97.39 [degF] Cherrie Gagandeep REFINERY OPERATOR HELPER [employer]ING UNIT.POCKET CLOSER Work Phone: [facility] 03-02-2023 07:16-0400 Body weight 69.31 kg Cherrie Gagandeep REFINERY OPERATOR HELPER [employer]ING UNIT.POCKET CLOSER Work Phone: [facility] 03-02-2023 07:16-0400 Diastolic blood pressure 84 mm[Hg] Cherrie Gagandeep REFINERY OPERATOR HELPER [employer]ING UNIT.POCKET CLOSER Work Phone: [facility] 03-02-2023 07:16-0400 Heart rate 97 /min Cherrie Gagandeep REFINERY OPERATOR HEL[employer]IT.POCKET CLOSER Work Phone: [facility] 03-02-2023 07:16-0400 Respiratory rate 18 /min Cherrie Gagandeep REFINERY OPERATOR [employer]IT.POCKET CLOSER Work Phone: [facility] 03-02-2023 07:16-0400 SaO2% (BldA) [Mass fraction] 99 % Cherrie Gagandeep REFINERY OPERATOR [employer]IT.POCKET CLOSER Work Phone: [facility] 03-02-2023 07:16-0400 Systolic blood pressure 120 mm[Hg] Cherrie Donis APRN.POCKET CLOSER Work Phone: [facility] 10-22-2022 10:22-0500 Body height 156.[address] Miranda Hester Work Phone: [facility] 10-22-2022 10:22-0500 Body mass index (BMI) [Ratio] 28.4 kg/m2 Dr. Miranda Hester Work Phone: [facility] 10-22-2022 10:22-0500 Body temperature 95 [degF] Dr. Miranda Hester Work Phone: [facility] 10-22-2022 10:22-0500 Body weight 69.[address] Miranda Hester Work Phone: [facility] 10-22-2022 10:22-0500 Diastolic blood pressure 76 mm[Hg] Dr. Miranda Hester Work Phone: [facility] 10-22-2022 10:22-0500 Heart rate 85 /min Dr. Miranda Hester Work Phone: [facility] 10-22-2022 10:22-0500 Respiratory rate 18 /min Dr. Miranda Hester Work Phone: [facility] 10-22-2022 10:22-0500 SaO2% (BldA) [Mass fraction] 96 % Dr. Miranda Hester Work Phone: [facility] 10-22-2022 10:22-0500 Systolic blood pressure 118 mm[Hg] Dr. Miranda Hester Work Phone: [facility] 02-25-2022 07:10-0400 Body temperature 97.59 [degF] Cherrie Donis APRN.POCKET CLOSER Work Phone: [facility] 02-25-2022 07:10-0400 Body weight 69.31 kg Cherrie Gagandeep REFINERY OPERATOR [employer]IT.POCKET CLOSER Work Phone: [facility] 02-25-2022 07:10-0400 Diastolic blood pressure 66 mm[Hg] Cherrie Donis REFINERY OPERATOR [employer].POCKET CLOSER Work Phone: [facility] 02-25-2022 07:10-0400 Heart rate 90 /min Cherrie Donis REFINERY OPERATOR [employer]IT.POCKET CLOSER Work Phone: [facility] 02-25-2022 07:10-0400 Respiratory rate 18 /min Cherrie Donis REFINERY OPERATOR HEL[employer] UNIT.POCKET CLOSER Work Phone: [facility] 02-25-2022 07:10-0400 SaO2% (BldA) [Mass fraction] 97 % Cherrie Donis REFINERY OPERATOR [employer] UNIT.POCKET CLOSER Work Phone: [facility] 02-25-2022 07:10-0400 Systolic blood pressure 118 mm[Hg] Cherrie Donis REFINERY OPERATOR [employer] UNIT.POCKET CLOSER Work Phone: [facility] 01-20-2022 08:36-0400 Body height 156.[address] Miranda Hester Work Phone: [facility] Work Phone: 01-20-2022 08:36-0400 Body mass index (BMI) [Ratio] 27.8 kg/m2 Dr. Miranda Hester Work Phone: [facility] Work Phone: 01-20-2022 08:36-0400 Body temperature 97 [degF] Dr. Miranda Hester Work Phone: [facility] Work Phone: 01-20-2022 08:36-0400 Body weight 68.[address] Miranda Hester Work Phone: [facility] Work Phone: 01-20-2022 08:36-0400 Diastolic blood pressure 76 mm[Hg] Dr. Miranda Hester Work Phone: [facility] Work Phone: 01-20-2022 08:36-0400 Heart rate 86 /min Dr. Miranda Hester Work Phone: [facility] Work Phone: 01-20-2022 08:36-0400 Respiratory rate 14 /min Dr. Miranda Hester Work Phone: [facility] Work Phone: 01-20-2022 08:36-0400 SaO2% (BldA) [Mass fraction] 97 % Dr. Miranda Hester Work Phone: [facility] Work Phone: 01-20-2022 08:36-0400 Systolic blood pressure 142 mm[Hg] Dr. Miranda Hester Work Phone: [facility] Work Phone: 12-30-2021 09:49-0400 Body temperature 97.11 [degF] Josselin Bogner PA-C Work Phone: [facility] 12-30-2021 09:49-0400 Body weight 68.86 kg Josselin Bogner PA-C Work Phone: [facility] 12-30-2021 09:49-0400 Diastolic blood pressure 72 mm[Hg] Josselin Bogner PA-C Work Phone: [facility] 12-30-2021 09:49-0400 Heart rate 90 /min Josselin Bogner PA-C Work Phone: [facility] 12-30-2021 09:49-0400 Respiratory rate 18 /min Josselin Bogner PA-C Work Phone: [facility] 12-30-2021 09:49-0400 SaO2% (BldA) [Mass fraction] 99 % Josselin Bogner PA-C Work Phone: [facility] 12-30-2021 09:49-0400 Systolic blood pressure 108 mm[Hg] Josselin Bogner PA-C Work Phone: [facility] 12-10-2021 08:27-0400 Body height 158 cm Jena Ocasio REFINERY OPERATOR [employer]PER [employer]ING UNIT.POCKET CLOSER Work Phone: [facility] 12-10-2021 08:27-0400 Body temperature 96.3 [degF] Jena Ocasio REFINERY OPERATOR [employer] UNIT.POCKET CLOSER Work Phone: [facility] 12-10-2021 08:27-0400 Body weight 69.85 kg Chanda Ocasio REFINERY OPERATOR [employer]ING UNIT.POCKET CLOSER Work Phone: [facility] 12-10-2021 08:27-0400 Diastolic blood pressure 75 mm[Hg] Jena Ocasio REFINERY OPERATOR [employer]IT.POCKET CLOSER Work Phone: [facility] 12-10-2021 08:27-0400 Heart rate 98 /min Chanda Ocasio REFINERY OPERATOR [employer]IT.POCKET CLOSER Work Phone: [facility] 12-10-2021 08:27-0400 SaO2% (BldA) [Mass fraction] 100 % Chanda Bellenter REFINERY OPERATOR [employer]ING UNIT.POCKET CLOSER Work Phone: [facility] 12-10-2021 08:27-0400 Systolic blood pressure 118 mm[Hg] Chanda Ocasio REFINERY OPERATOR [employer]IT.POCKET CLOSER Work Phone: [facility] 10-28-2021 07:10-0500 Body mass index (BMI) [Ratio] 29.9 kg/m2 Dr. Miranda Hester Work Phone: [facility] Work Phone: 10-28-2021 07:10-0500 Body temperature 94.5 [degF] Dr. Miranda Hester Work Phone: [facility] Work Phone: 10-28-2021 07:10-0500 Body weight 73.[address] Miranda Hester Work Phone: [facility] Work Phone: 10-28-2021 07:10-0500 Diastolic blood pressure 74 mm[Hg] Dr. Miranda Hester Work Phone: [facility] Work Phone: 10-28-2021 07:10-0500 Heart rate 89 /min Dr. Miranda Hester Work Phone: [facility] Work Phone: 10-28-2021 07:10-0500 Respiratory rate 16 /min Dr. Miranda Hester Work Phone: [facility] Work Phone: 10-28-2021 07:10-0500 SaO2% (BldA) [Mass fraction] 98 % Dr. Miranda Hester Work Phone: [facility] Work Phone: 10-28-2021 07:10-0500 Systolic blood pressure 150 mm[Hg] Dr. Miranda Hester Work Phone: [facility] Work Phone: Encounters Encounter Date Encounter Type Care Provider Facility Start: 06-19-2025 End: 06-19-2025 ambulatory [facility] [place] Start: 06-09-2025 In-person encounter Darin lorenz MD Work Phone: [facility] Work Phone: Start: 06-09-2025 Visit out of hours Darin pike MD Work Phone: [facility]. Work Phone: Start: 06-05-2025 End: 06-05-2025 Emergency department patient visit Dr. Harriett Draper MD Work Phone: -Emergency Department Work Phone: Start: 05-09-2025 End: 05-09-2025 Office outpatient new 30 minutes Yajaira Joseph MD Work Phone: [facility] [place] Comment on above: Sensorineural hearin g loss, bilateral (Primary Dx); Otalgia, right Start: 05-09-2025 End: 05-09-2025 Clinical Support Harsha Narvaez Work Phone: [facility] Comment on above: Sensorineural hearin g loss, bilateral (Primary Dx) Start: 03-24-2025 In-person encounter Darin lorenz MD Work Phone: [facility] Work Phone: Start: 03-24-2025 Visit out of hours Darin pike MD Work Phone: [facility]. Work Phone: Start: 03-14-2025 End: 03-14-[address] Harriett Draper MD Work Phone: -Laboratory Start: 03-14-2025 End: 03-14-[address] Miranda Hester MD -Laboratory Work Phone: Start: 03-13-2025 End: 03-13-[address] Miranda Hester MD -[facility] Work Phone: Start: 03-13-2025 End: 03-14-[address] Harriett Draper MD Work Phone: [facility] Start: 01-18-2025 End: 01-18-[address] Miranda Hester MD -Laboratory [facility] Start: 01-18-2025 End: 01-18-2025 ambulatory Miranda Hester Facility:[facility] Start: 01-13-2025 End: 01-13-[address] Harriett Draper MD Work Phone: [facility] Work Phone: Start: 01-13-2025 End: 01-13-[address] Miranda Hester MD -Laboratory Specimen Work Phone: Start: 01-13-2025 End: 01-13-2025 ambulatory [facility] Facility:[facility] Start: 01-09-2025 End: 01-09-[address] Harriett Draper MD Work Phone: [facility] Work Phone: Start: 01-09-2025 End: 01-09-[address] Miranda Hester MD -Laboratory [facility] Start: 01-09-2025 End: 01-09-2025 ambulatory [facility] Facility:[facility] Start: 12-05-2024 End: 12-05-[address] Miranda Hester MD -[facility] Work Phone: Start: 12-05-2024 End: 12-05-[address] Harritet Draper MD Work Phone: [facility] Work Phone: Start: 12-05-2024 End: 12-05-2024 ambulatory [facility] Facility:[facility] Start: 09-14-2024 End: 09-14-2024 Telephone encounter Chanda Ocasio APRN.CNP Work Phone: Hematology/Oncology Start: 09-13-2024 End: 09-13-2024 ambulatory [facility] Facility:[facility] Start: 09-13-2024 End: 09-13-2024 Follow-up encounter Chanda Ocasio APRN.CNP Work Phone: Hematology/Oncology Comment on above: Encounter for follow -up surveillance of breast cancer (Primary Dx) Start: 09-13-2024 End: 09-13-2024 Patient encounter procedure Chanda Ocasio APRN.CNP Work Phone: Hematology/Oncology Start: 09-13-2024 End: 09-13-2024 Subsequent hospital visit by physician Screen Mammo [facility] Mamm[facility] Comment on above: 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 Miranda Hester MD -[facility] Work Phone: Start: 08-29-2024 End: 08-29-[address] Miranda Hester MD [facility] Start: 08-29-2024 End: 08-29-2024 [facility] Start: 08-29-2024 End: 08-29-2024 [facility] Start: 07-26-2024 End: 07-26-2024 Emergency department patient visit [facility] Facility:[facility] Start: 07-25-2024 End: 07-25-2024 Emergency department patient visit Ed Physician Provider Facility:[facility] Start: 12-13-2023 End: 12-13-2023 ambulatory [facility] Facility:[facility] Start: 12-13-2023 End: 12-13-2023 Patient encounter procedure Cherrie Donis APRN.POCKET CLOSER Work Phone: [facility] Comment on above: Bacterial sinusitis (Primary Dx) Start: 12-02-2023 End: 12-02-[address] Miranda Hester Work Phone: [facility] Work Phone: Start: 12-02-2023 End: 12-02-[address] Miranda Hester Work Phone: [facility]-Outpatient Bone Densitometry Work Phone: Start: 10-16-2023 End: 10-16-[address] Miranda Hester Work Phone: [facility] Work Phone: Start: 10-16-[address] Servando Hester Work Phone: [facility] Start: 10-16-2023 End: 10-16-2023 Encounter for general adult medical examination without abnormal findings Dr. Miranda Hester Work Phone: [facility] Start: 10-16-2023 End: 10-16-[address] Miranda Hester Work Phone: [facility] Internal Medicine Work Phone: Start: 07-27-2023 End: 07-27-2023 Emergency department patient visit Dr. Miranda Hester Work Phone: [facility]-Emergency Department Work Phone: Start: 06-29-2023 End: 06-29-[address] Miranda Hester Work Phone: [facility] Work Phone: Start: 06-29-2023 End: 06-29-2023 Emergency department patient visit Dr. Miranda Hester Work Phone: [facility] Start: 06-29-2023 End: 06-29-[address] Miranda Hester Work Phone: [facility] Internal Medicine Work Phone: Start: 03-27-[address] Servando Hester Work Phone: [facility] Start: 03-27-2023 End: 03-27-[address] Miranda Hester Work Phone: [facility] Work Phone: Start: 03-27-2023 End: 03-27-2023 Emergency department patient visit Dr. Miranda Hester Work Phone: [facility] Start: 03-27-2023 End: 03-27-[address] Miranda Hester Work Phone: [facility] Internal [facility] Work Phone: Start: 03-25-2023 End: 03-25-2023 Subsequent hospital visit by physician Screen Mammo [facility] Mammogram Comment on above: Encounter for screen ing mammogram for malignant neoplasm of breast [Z12.31] Start: 03-11-2023 End: 03-11-[address] Miranda Hester Work Phone: [facility] Internal [facility] Work Phone: Start: 03-05-2023 End: 03-05-2023 Patient encounter procedure Amy Keita REFINERY OPERATOR HELPER CR[employer]ING UNIT.POCKET CLOSER Work Phone: [facility] Comment on above: Dermatitis (Primary Dx) Start: 03-04-2023 End: 03-04-[address] Miranda Hester Work Phone: [facility] Work Phone: Start: 03-04-2023 End: 03-04-[address] Miranda Hester Work Phone: [facility] Work Phone: Start: 03-02-2023 End: 03-02-2023 Patient encounter procedure Cherrie Donis REFINERY OPERATOR HELPER CR[employer]ING UNIT.POCKET CLOSER Work Phone: [facility] Comment on above: Rhus dermatitis (Solange katie Dx) Start: 01-20-2023 End: 01-20-[address] Miranda Hester Work Phone: [facility] Internal Medicine Work Phone: Start: 01-06-2023 End: 01-06-[address] Miranda Hester Work Phone: [facility] Internal [facility] Work Phone: Start: 12-23-2022 End: 12-23-[address] Miranda Hester Work Phone: [facility] Internal [facility] Work Phone: Start: 12-09-2022 End: 12-09-[address] Miranda Hester Work Phone: [facility] Work Phone: Start: 11-25-2022 End: 11-25-[address] Miranda Hester Work Phone: [facility] Internal [facility] Work Phone: Start: 11-10-2022 End: 11-10-[address] Miranda Hester Work Phone: [facility] Internal [facility] Work Phone: Start: 10-24-2022 End: 10-24-[address] Miranda Hester Work Phone: [facility] Work Phone: Start: 10-24-2022 End: 10-24-[address] Miranda Hester Work Phone: [facility] Start: 10-22-2022 End: 10-22-[address] Miranda Hester Work Phone: [facility] Start: 10-16-2022 End: 10-16-[address] Miranda Hester Work Phone: [facility] Work Phone: Start: 10-16-2022 End: 10-16-[address] Miranda Hester Work Phone: [facility]-Laboratory Start: 02-25-2022 End: 02-25-2022 Patient encounter procedure Cherrie Donis APRN.POCKET CLOSER Work Phone: [facility] Comment on above: Bacterial sinusitis (Primary Dx) Start: 01-20-2022 End: 01-20-[address] Miranda Hester Work Phone: [facility]-Laboratory, [facility] Start: 01-20-2022 End: 01-20-[address] 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) [C50.912] Start: 12-30-2021 Telephone encounter Josselin Mejias PA-C Work Phone: [facility] Comment on above: Results Start: 12-30-2021 End: 12-30-2021 Patient encounter procedure Josselin Mejias PA-C Work Phone: [facility] Comment on above: Vertigo (Primary Dx) Start: 12-10-2021 End: 12-10-2021 ambulatory Chanda Ocasio REFINERY OPERATOR HELPER CRACKING UNIT.POCKET CLOSER Work Phone: Hematology/Oncology Comment on above: Invasive ductal carc inoma of left breast in female (HCC) (Primary Dx); Breast pain, left Start: 12-10-2021 End: 12-10-2021 Patient encounter procedure Chanda Ocasio APRN.POCKET CLOSER [facility] Phone[facility] Start: 10-30-2021 End: 10-30-[address] Miranda Hester Work Phone: [facility] - [facility] Start: 10-28-2021 End: 10-28-[address] Miranda Hester Work Phone: [facility] Internal [facility] Start: 09-26-2021 End: 09-26-[address] Miranda Hester Work Phone: [facility]-Radiology, [facility] Start: 02-13-2012 Evaluation and management of inpatient Dr. Miranda Hester Work Phone: [facility]- Procedures Date Procedure Procedure Detail Performing Clinician Start: 06-09-2025 Osteoarthritis sympt oms and functional status not assessed Darin Covington MD Work Phone: Start: 06-09-2025 Blood pressure withi n normal parameters - no follow-up required Darin Covington MD Work Phone: Start: 06-09-2025 BMI documented as ab ove normal parameters - follow-up documented Darin Covington MD Work Phone: Start: 06-09-2025 Current tobacco non- user cad cap copd pv dm Darin Covington MD Work Phone: Start: 06-09-2025 Documentation of cur rent medications Darin Covington MD Work Phone: Start: 06-09-2025 Pain assessment documented as positive - follow-up documented Darin Covington MD Work Phone: Start: 06-09-2025 Physical therapy management Darin Covington MD Work Phone: Start: 03-24-2025 Blood pressure withi n normal [...] Dr. Miranda Hester Work Phone: Start: 01-15-2022 Us breast uni real t jacquelyn with image limited Chanda Ocasio REFINERY OPERATOR HEL[employer]ACKING UNIT.POCKET CLOSER Work Phone: Start: 01-15-2022 Mammography Chanda le REFINERY OPERATOR HEL[employer]ING UNIT.POCKET CLOSER Work Phone: Start: 12-09-2021 Adult depression screening assessment Chanda Ocasio REFINERY OPERATOR HEL[employer]ING UNIT.POCKET CLOSER Work Phone: Start: 10-30-2021 MRI of joint of lowe r extremity Dr. Miranda Hester Work Phone: Start: 09-26-2021 Inj/Asp Tariq Jt Should/Hip/Knee Dr. Miranda Hester Work Phone: Start: 02-22-2021 Mammography Chanda Bell enter REFINERY OPERATOR HEL[employer]ING UNIT.POCKET CLOSER Work Phone: Start: 04-03-2020 Colonoscopy Chanda Carp enter REFINERY OPERATOR HEL[employer]ING UNIT.POCKET CLOSER Work Phone: Start: 06-02-2016 Lipid 1996 panel - S earlene or Plasma Screen Wstr Start: 03-13-2015 Colonoscopy Josselin Mejias PA-C Work Phone: Plan of Treatment Date Care Activity Detail Author Start: 09-28-2025 End: 09-28-2025 Follow-up encounter 09/28/2025 8:00 AM EST Visit (SP) Office Hematology/Oncology [address] [place] [id number] Chanda Ocasio APRN.POCKET CLOSER [address] [place] [id number] 1 YR FOLLOW UP OV Hematology/Oncology Comment on above: 1 YR FOLLOW UP OV Start: 09-21-2025 End: 09-21-2025 Patient encounter procedure 09/21/2025 7:30 AM EST Appointment Mammogram [address] [place] [id number] Referral Status: Closed Mammogram Comment on above: [id number] Referral St atus: Closed Start: 09-14-2025 End: 10-14-2025 DBT Breast - bilateral screening SPENCER SCREENING W SHANEL Radiology Routine Invasive ductal carcinoma of left breast in female (HCC) Encounter for screening mammogram for high-risk patient Expected: 09/14/2025, Expires: 10/14/2025 [facility] Work Phone: Comment on above: Expected: 09/14/2025 , Expires: 10/14/2025 Start: 09-13-2025 BP Controlled (<130/80) BP Controlle d (<130/80) [facility] Start: 09-13-2025 Screening for malign ant neoplasm of breast Mammogram [facility] Start: 06-26-2025 End: 06-26-2025 Apparent. Work Phone: Start: 06-16-2025 End: 06-16-2025 Clinical Support 06/16/2025 8:00 AM EDT Clinical Support [facility] [address] [place] [address] Harsha Riggins, AuD [address] [facility] [address] [place] [address] [facility] Start: 06-09-2025 End: 06-09-2025 Apparent. Work Phone: Start: 06-09-2025 Mri spinal canal lum bar w/o & w/contr matrl [facility] [place] Work Phone: Start: 06-09-2025 Radex spine lumbosac ral 2/3 views [facility] Work Phone: Start: 06-05-2025 [facility] Start: 06-05-2025 [facility] Start: 05-01-2025 COVID-19 Vaccine ( season) COVID-19 Vaccine () [facility] Start: 05-01-2025 Influenza vaccination Influenza Vacc ine (#1) [facility] Start: 04-03-2025 Colonoscopy COLONOSCOPY [facility] Start: 04-03-2025 COLORECTAL CANCER SCREENING COLORECTAL CANCER SCREENING [facility] Start: 03-24-2025 End: 03-24-2025 [email or web address] Work Phone: Start: 03-24-2025 Radex spine lumbosac ral 2/3 views [facility] Work Phone: Start: 12-30-2024 DIABETES SCREEN DIABETES SCREEN [facility] Start: 12-30-2024 Diabetes Screening Diabetes Screenin g [facility] Start: 12-12-2024 BP Controlled (<130/80) BP Controlle d (<130/80) [facility] Start: 09-23-2024 Evaluation of diagno stic study results [facility] Start: 09-13-2024 End: 09-13-2024 Patient encounter procedure 09/13/2024 9:30 AM EST Appointment Mammogram [address] MICHELLE CUMMINS [place], [place] [id number] Invasive ductal carcinoma of left breast in female (HCC) [C50.912] Mammogram Comment on above: Invasive ductal carc inoma of left breast in female (HCC) [C50.912] Start: 09-13-2024 End: 09-13-2024 ambulatory 09/13/2024 9:00 AM EST Visit (SP) Office Hematology/Oncology [address] [place] [id number] Chanda Ocasio APRN.POCKET CLOSER [address] [place] [id number] OV Hematology/Oncology Comment on above: OV Start: 08-31-2024 Advance Directive Discussion Advance Directive Discussion [facility] Start: 05-01-2024 Influenza vaccination [facility] Start: 03-25-2024 Mammography Mammogram Screening [facility] Start: 03-25-2024 Screening for malign ant neoplasm of breast Mammogram Screening [facility] Start: 02-08-2024 Respiratory Syncytia l Virus Immunization: Risk, 60-74 Risk, or 75+ (1 - 1-dose 75+ series) Respiratory Syncytial Virus Immunization: Risk, 60-74 Risk, or 75+ (1 - 1-dose 75+ series) [facility] Start: 02-08-2024 RSV Vaccine (1 - 1-d ose 75+ series) RSV Vaccine (1 - 1-dose 75+ series) [facility] Start: 10-16-2023 Patient referral [facility] Work Phone: Start: 08-31-2023 Advance Directive Discussion Advance Directive Discussion [facility] Start: 08-31-2023 Behavioral Health Screening Behavioral Health Screening [facility] Start: 07-27-2023 [facility] Start: 06-29-2023 Evaluation of diagno stic study results [facility] Start: 05-01-2023 Influenza vaccination C [facility] Start: 02-25-2023 BP CONTROLLED (<130/80) BP CONTROLLE D (<130/80) [facility] Start: 01-15-2023 Mammography MAMMOGRAM [facility] Start: 12-30-2022 BP CONTROLLED (<130/80) BP CONTROLLE D (<130/80) [facility] Start: 12-10-2022 BP CONTROLLED (<130/80) BP CONTROLLE D (<130/80) [facility] Start: 12-09-2022 Adult depression screening assessment DEPRESSION SCREENING [facility] Start: 08-31-2022 ADVANCE DIRECTIVE DISCUSSION ADVANCE DIRECTIVE DISCUSSION [facility] Start: 08-31-2022 DEPRESSION ASSESSMENT DEPRESSION ASS ESSMENT [facility] Start: 05-01-2022 Influenza vaccination INFLUENZ A (Season Ended) [facility] Start: 02-22-2022 Mammography MAMMOGRAM [facility] Start: 08-31-2021 ADVANCE DIRECTIVE DISCUSSION ADVANCE DIRECTIVE DISCUSSION [facility] Start: 06-02-2021 Lipid 1996 panel - S earlene or Plasma Lipid Screening [facility] Start: 06-02-2021 Lipid panel Lipid Screening [facility] Start: 06-02-2021 LIPID SCREEN LIPID SCREEN [facility] Start: 03-13-2020 Colonoscopy COLONOSCOPY [facility] Start: 03-13-2020 COLORECTAL CANCER SCREENING COLORECTAL CANCER SCREENING [facility] Start: 03-13-2020 Screening for malign ant neoplasm of colon [facility] Start: 02-26-2020 DIABETES SCREEN DIABETES SCREEN [facility] Start: 02-25-2018 ANNUAL PCP TEAM ASSOCIATE DIRECTOR CAREER SERVICES [place] DISEASE VISIT ANNUAL PCP TEAM CHRONIC DISEASE VISIT [facility] Start: 2014 Fall risk assessment Falls Risk Asse ssment [facility] Start: 05-01-2012 Screening for malign ant neoplasm of cervix Cervical Cancer Screening [facility] Start: 2009 RSV Vaccine (1 - 1-d ose 60+ series) RSV Vaccine (1 - 1-dose 60+ series) [facility] Start: 1999 Administration of he rpes zoster vaccine Zoster Vaccines (1 of 2) [facility] Start: 1999 Pneumococcal Vaccine : Age 50+ (1 of 1 - PCV) Pneumococcal Vaccine: Age 50+ (1 of 1 - PCV) [facility] Start: 1999 SHINGRIX VACCINE (1 of 2) SHINGRIX VACCINE (1 of 2) [facility] Start: 1994 COLOGUARD (FIT-DNA) COLOGUARD (FIT-D NA) [facility] Start: [address] [facility] Start: 1994 FECAL OCCULT BLOOD FECAL OCCULT BLOO D [facility] Start: 1994 Screening for malign ant neoplasm of colon [facility] Start: 1994 SIGMOIDOSCOPY SIGMOIDOSCOPY [facility] Start: 02-08-1968 Pneumococcal Vaccine : 50+ (1 of 2 - PCV) Pneumococcal Vaccine: 50+ (1 of 2 - PCV) [facility] Start: 02-08-1968 SHINGRIX VACCINE (1 of 2) SHINGRIX VACCINE (1 of 2) [facility] Start: 02-08-1968 Urine microalbumin profile [facility] Start: 1967 ANNUAL PCP TEAM ASSOCIATE DIRECTOR CAREER SERVICES [place] DISEASE VISIT ANNUAL PCP TEAM CHRONIC DISEASE VISIT [facility] Start: 1967 Anxiety Screening Anxiety Screening [facility] Start: 1967 BP CONTROLLED (<130/80) BP CONTROLLE D (<130/80) [facility] Start: 1967 Depression Screening Depression Scre ening [facility] Start: 1967 HEPATITIS C SCREENING [facility]PAT[facility] Start: 1967 Hepatitis C screening Hepatitis C [facility] Start: 1961 COVID-19 VACCINE (1) COVID-19 VACCIN E (1) [facility] Start: 1961 Depression screening using PHQ-9 (Patient Health Questionnaire 9) score Depression Screening/Follow-Up (PHQ-2/9) [facility] Start: 1955 Pneumococcal Vaccine : 65+ (1 - PCV) Pneumococcal Vaccine: 65+ (1 - PCV) [facility] Start: 1955 Pneumococcal Vaccine : 65+ (1 of 2 - PCV) Pneumococcal Vaccine: 65+ (1 of 2 - PCV) [facility] Start: 1955 PNEUMOCOCCAL: 65+ (1 - PCV) PNEUMOCOCCAL: 65+ (1 - PCV) [facility] Start: 1954 COVID-19 VACCINE (#1) COVID-19 VACCI NE (#1) [facility] Start: 02-08-1952 History and physical examination, annual for health maintenance Wellness Visit [facility] Start: 02-08-1952 Medicare Wellness Visit Medicare Wel lness Visit [facility] Start: 1949 COVID-19 VACCINE (#1) COVID-19 VACCI NE (#1) [facility] Start: 1949 Screening for osteoporosis Dexa Scan [facility] Start: 1949 Tetanus vaccination Tetanus: Every 1 0yrs [facility] CBC W Auto Different ial panel - Blood [facility] CBC W Auto Different ial panel - Blood [facility] Comprehensive metabo lic 2000 panel - Serum or Plasma [facility] End: 10-12-2025 DBT Breast - bilateral screening SPENCER SCREENING [facility] Radiology Routine Invasive ductal carcinoma of left breast in female (HCC) Encounter for screening mammogram for high-risk patient 1 Occurrences starting 09/12/2024 until 10/12/2025 [facility] Work Phone: Comment on above: 1 Occurrences starti ng 09/12/2024 until 10/12/2025 DBT Breast - bilater al screening SPENCER SCREENING [facility] Radiology Routine Invasive ductal carcinoma of left breast in female (HCC) Encounter for screening mammogram for high-risk patient 09/13/2024 10:02 AM EST [facility] Work Phone: End: 01-09-2023 Diagnostic mammography computer-aided detcj bi [facility] Radiology Routine Invasive ductal carcinoma of left breast in female (HCC) Breast pain, left 1 Occurrences starting 12/10/2021 until 01/09/2023 [facility] Work Phone: Comment on above: 1 Occurrences starti ng 12/10/2021 until 01/09/2023 DXA Bone [Mass/Area] Bone density [facility] Ferritin [Mass/volum e] in Serum or Plasma [facility] Hemoglobin A1c/Hemoglobin.total in Blood [facility] Iron and Iron bindin g capacity panel - Serum or Plasma [facility] Lipid 1996 panel - S earlene or Plasma [facility] Patient Education [facility] Work Phone: Patient referral [facility] Work Phone: Urine microalbumin/creatinine ratio measurement [facility] End: 01-09-2023 Us breast uni real time with image limited US BREAST LTD LT Radiology Routine Invasive ductal carcinoma of left breast in female (HCC) Breast pain, left 1 Occurrences starting 12/10/2021 until 01/09/2023 [facility] Work Phone: Comment on above: 1 Occurrences starti ng 12/10/2021 until 01/09/2023 [facility] Immunizations Immunization Date Immunization Notes Care Provider Jovanny terrell 10-23-2016 influenza virus vacc ine, unspecified formulation Screen Wstr [facility] Payers Date Payer Category Payer Medicare PLAN G 2024 Self-pay [id number] 2022 Miscellaneous or Other [employer] L [id number] 2022 Medicare [id number] 2020 Unknown HOSPITAL/MEDICAL GENERIC MEDICAL GENERIC [id number] 2020-Present [phone] [address] [address] [place] [address] Indemnity [id number] 2020 Unknown [id number] 2014 Medicare MEDICARE MEDICAR E A AND B [id number] 2014-Present [phone] [address] [address] [place] [address] Medicare [id number] 2014 Medicare [id number] 2014 Medicare [id number] 2014 Medicare [id number] 1950 Unknown [id number]. 903 1950 Unknown [id number]. 903 Unknown [id number] Unknown [id number] Unknown [id number] Unknown [id number] Unknown [id number]. 462 Unknown [id number] 2.840.1.660778.3.579.2. 462 Unknown [id number] 2.840.1.071373.3.579.2. 462 Unknown [id number] 2.840.1.150495.3.579.2. 462 Unknown [id number] 2.840.1.561599.3.579.2. 462 Unknown [id number] 2.840.1.758390.3.579.2. 462 Unknown [id number] 2.840.1.814430.3.579.2. 462 Unknown [id number] 2.840.1.255065.3.579.2. 462 Unknown [id number] 2.840.1.694366.3.579.2. 462 Unknown [id number]. 462 Unknown [id number] [id number]. 462 Unknown [id number] [id number]. 462 Unknown [id number]. 462 Social History Date Type Detail Facility Start: 03-02-2023 End: 06-05-2025 Tobacco smoking status NHIS Never smoked tobacco [facility] Start: 12-10-2021 End: 09-13-2024 Alcohol intake Current non-drinker of alcohol (finding) [facility] Start: 1950 Sex Assigned At Female [facility] Start: 11-30-2021 End: 02-25-2022 Exposure to SARS-CoV-2 (event) Not sure [facility] Start: 01-20-2022 End: 10-16-2023 Tobacco smoking status NHIS Unknown if ever smoked [facility] Start: 02-10-2020 None [facility] Start: 02-10-2020 With Family [facility] Start: 03-28-2020 Non-smoker [facility] Start: 03-02-2023 End: 05-09-2025 Tobacco use and exposure Smokeless tobacco non-user [facility] Start: 03-05-2023 End: 05-09-2025 History of Social function [facility] Start: 03-05-2023 End: 06-09-2025 Tobacco use panel [facility] Adult Depression Screening Assessment 2 [facility] Start: 02-21-2021 Gender identity Identifies as female gender (finding) [facility] Start: 12-03-2021 Sexual orientation Heterosexual (fin ding) [facility] Start: 12-08-2024 Sex Female (finding) [facility] Start: 05-09-2025 Alcoholic beverage intake Lifetime non-drinker (finding) [facility] Start: 1950 Sex assigned at [facility] NEGATED: Highlighted rowStart: NINF History of tobacco use Passive smoker [facility] Medical Equipment Procedure Code Equipment Code Equipment [...] Lancets) 17 gauge misc Start: 10-28-2021 End: 03-08-2022 Lancets (Acti-La nce Lancets) 17 gauge misc [...] 10-25-2024 Functional Status Date Assessment Result Facility 06-09-2025 Functional Status with [facility] Work Phone: 06-09-2025 dependent [facility] Work Phone: 03-24-2025 Functional Status without [facility] Work Phone: 03-24-2025 dependent [facility] Work Phone: Clinical Notes 02-14-2012 to 06-05-2025 Harsha Riggins AuD - 05/09/2025 2:26 PM Yajaira German MD - 05/09/2025 2:20 PM Марина Roth MA - 05/09/2025 1:56 PM Estelle Cruz Mammo Tech - 09/13/2024 9:30 AM EST Note Date & Type Note Facility 06-05-2025 Discharge summary [facility] 05-09-2025 History of Present illness Narrative Images from the original note were not included. [facility] [address] [address] Name: Karyn Gonsales : 1950 Date: 05/09/25 [...] expressed understanding. Electronically Signed by: Solange Galindo, [facility] 05/09/25 2:26 PM Audiogram: documented in this encounter [facility] 05-09-2025 Note [facility] [address] [facility] [address] [facility] [address] Dept: [phone] Yajaira Joseph MD Karyn Gonsales 75 y.o. female Patient presents with a chief complaint of Hearing loss (New PT/) Temp 97.8 degrees F (36.6 degrees C) Ht 5' 2" Wt 70.6 kg (155 lb 11.2 oz) [...] well to amplification. An appointment with the deputy bailiff in the office is offered if the [...] See Admin Instruction (more content not included)... [facility] 05-09-2025 History of Present illness Narrative [facility] [address] [facility] [address] [facility] [address] Dept: [phone] MD Anuradha Blanchardcy Alexis Gonsales 75 y.o. female Patient presents with a chief complaint of Hearing loss (New PT/) Temp 97.8 F (36.6 C) Ht 5' 2" Wt 70.6 kg (155 lb 11.2 oz) [...] well to amplification. An appointment with the deputy bailiff in the office is offered if the [...] Negative. Psychiatric/Behavioral: Negative. documented in this encounter [facility] 09-14-2024 Telephone encounter Note SPOKE TO PT SCHEDULED DIRECTED. Sushil Rios [facility] 09-14-2024 Miscellaneous Notes SPOKE TO PT SCHEDULED DIRECTED. Sushil Rios Please inform pt. that her mammogram looks good. Mammogram in one year-OV after. Thank you. Chanda Ocasio APRN.POCKET CLOSER documented in this encounter [facility] 09-14-2024 Telephone encounter Note Please inform pt. that her mammogram looks good. Mammogram in one year-OV after. Thank you. Chanda Ocasio APRN.CNP [facility] 09-13-2024 History of Present illness Narrative [...] PATIENT PRESENTS WITH AN IMPLANTABLE OR ATTACHED IRONER SOCK: No RADIOLOGY DEPARTMENT: Mammography PERIPHERAL IV DATA: Not applicable SIGNED BY: Lucio Xiao September 13, 2024 9:59 AM documented in this encounter [facility] 09-13-2024 Note HNO ID: [id number] Author: ESTELLE CLEMENS Mammo Tech Service: ? [...] PATIENT PRESENTS WITH AN IMPLANTABLE OR ATTACHED IRONER SOCK: No RADIOLOGY DEPARTMENT: Mammography PERIPHERAL IV DATA: Not applicable SIGNED BY: Estelle Clemens [employer] September 13, 2024 9:59 AM [facility] 09-13-2024 Note HNO ID: [id number] Author: CHANDA OCASIO APRN.POCKET CLOSER Service: ? Author Type: Nurse Practitioner Type: [...] nodes are negative. ER is 59% , IA is 89% , HER-2/selena by FISH is [...] mamm 03/25/23. Pt. followed by Ortho at [facility]. +back pain. Recent MRI. Scheduled for procedure 10/11/24. Pt. here today with spouse. Appetite:"Good." Wt. down 11# over past 2 1/2 years. Energy level:"I have none." Denies fever or recent illness. Resp:denies cough or sob Cardiac:denies chest pain/palpitations GI:denies abd pain h/o gastric bypass-n/v, moving bowels regularly :denies dysuria/hematuria Extrem:R leg/low back pain-followed by [facility], denies other pain Endo:denies hot flashes [...] pT1b (8 mm; moderately diff) N0 MX ER/IA positive; HER2 non amplified by FISH invasive [...] AI therapy. - Reviewed MRI done at [facility] earlier this month. DEBBIE. - Mammogram as scheduled today. - Follow up pending above. - Pt. aware to call office with any questions/concerns. The sensitive examination was discussed with the Patient or Patient's Authorized Mud Mixer. As applicable, any other physician, advance practice provider, medical student, or other health professional student that will be observing or involved in the sensitive examination for educational or training purposes was discussed with the Patient or Authorized Mud Mixer. The Patient or Authorized Mud Mixer has agreed to proceed with the sensitive examination. (Sensitive examination includes inspection and/or palpation of the breasts, pelvis, prostate and anorectal regions) The patient indicates understanding of these issues and agrees with the plan. All documentation from previous visit of 12/10/21-Dr. Schultz/myself was copied and pasted, documentation has been reviewed and edited as necessary for today's visit. Chanda Ocasio APRN.[facility] 09-13-2024 History of Present illness Narrative Chief [...] nodes are negative. ER is 59% , IA is 89% , HER-2/selena by FISH is [...] mamm 03/25/23. Pt. followed by Ortho at [facility]. +back pain. Recent MRI. Scheduled for procedure 10/11/24. Pt. here today with spouse. Appetite:"Good." Wt. down 11# over past 2 1/2 years. Energy level:"I have none." Denies fever or recent illness. Resp:denies cough or sob Cardiac:denies chest pain/palpitations GI:denies abd pain h/o gastric bypass-n/v, moving bowels regularly :denies dysuria/hematuria Extrem:R leg/low back pain-followed by [facility], denies other pain Endo:denies hot flashes [...] pT1b (8 mm; moderately diff) N0 MX ER/IA positive; HER2 non amplified by FISH invasive [...] AI therapy. - Reviewed MRI done at [facility] earlier this month. DEBBIE. - Mammogram as scheduled today. - Follow up pending above. - Pt. aware to call office with any questions/concerns. The sensitive examination was discussed with the Patient or Patient's Authorized Mud Mixer. As applicable, any other physician, advance practice provider, medical student, or other health professional student that will be observing or involved in the sensitive examination for educational or training purposes was discussed with the Patient or Authorized Mud Mixer. The Patient or Authorized Mud Mixer has agreed to proceed with the sensitive [...] Chanda Ocasio APRN.ANH documented in this encounter [facility] 09-12-2024 Telephone encounter Note Called patient and scheduled as directed [facility] 09-12-2024 Miscellaneous Notes Called patient and scheduled as directed Order in. OV after mamm. Chanda Ocasio APRN.POCKET CLOSER Spoke with pt. She is due for [...] sent a fax request this morning to [facility] to req MRI. I never requested an MRI from [facility]. Saniya Oviedo LPN [facility] called to report that the patient [...] a year ago. She walks at the [employer], but one evening 6 weeks ago she [...] Saniya Oviedo LPN documented in this encounter [facility] 09-12-2024 Telephone encounter Note Order in. OV after mamm. Chanda Ocasio APRN.POCKET CLOSER [facility] 09-12-2024 Telephone encounter Note Spoke with pt. She is due for mamm and OV with Chanda. She is late for both, but would like before her spinal fusion scheduled 10/11/[address] orders for mamm. Juhi Mota LPN [facility] 09-12-2024 Telephone encounter Note Patient states that she spoke with surgeon on 09/09/24 and is scheduled for procedure on 10/11/24. Patient is wanting to speak with hem/onc clinical caregiver to discuss further details and schedule overdue mammogram. [facility] 09-09-2024 Telephone encounter Note Spoke with pt, see phone note 09/08/24. Saniya Oviedo LPN [facility] 09-09-2024 Miscellaneous Notes Spoke with pt, see phone note 09/08/24. Saniya Oviedo LPN Please advise - Severe pain? Okay to schedule from 09/12-09/30 as requested? documented in this encounter [facility] 09-09-2024 Telephone encounter Note I sent a fax request this morning to [facility] to req MRI. I never requested an MRI from [facility]. Saniya vOiedo LPN [facility] 09-09-2024 Telephone encounter Note [facility] called to report that the patient was not seen at their facility. Please contact patient to discuss where MRI was performed. [facility] 09-09-2024 Telephone encounter Note Requested. Saniya Oviedo LPN [facility] 09-09-2024 Telephone encounter Note Noted. Agree. Please request copy of MRI. Chanda Ocasio APRN.POCKET CLOSER [facility] 09-08-2024 Telephone encounter Note Call placed to pt to discuss leg pain, pt states she has had leg pain for 6 weeks Pain in the front of her leg and into foot. She does note having back surgery a year ago. She walks at the [employer], but one evening 6 weeks ago she [...] Mammogram since February 2023. Saniya Oviedo LPN [facility] 09-08-2024 Telephone encounter Note Please advise - Severe pain? Okay to schedule from 09/12-09/30 as requested? [facility] Work Phone: 12-13-2023 Note HNO ID: [id number] Author: CHERRIE DONIS APRN.POCKET CLOSER Service: ? Author Type: Nurse Practitioner Type: Progress Notes Filed: 12/13/2023 08:46 Note Text: Subjective HPI HPI Karyn Gonsales is a 73 year old female who presents today for CC of sinus pressure. This started 1 week ago/worsening now. Has tried otc medication for relief. Symptoms are worsened by nothing. Risk factors hx of sinusitis. nonsmoker. Patient not well known to [facility], denies renal/hepatic disease. .Patient presents with: Sinus [...] Trachea normal. Cardiovascular (more content not included)... [facility] 12-13-2023 History of Present illness Narrative Subjective HPI HPI Karyn Gonsales is a 73 year old female who presents today for CC of sinus pressure. This started 1 week ago/worsening now. Has tried otc medication for relief. Symptoms are worsened by nothing. Risk factors hx of sinusitis. nonsmoker. Patient not well known to [facility], denies renal/hepatic disease. .Patient presents with: Sinus [...] MG-POTASSIUM CLAVULANATE 125 MG TABLET Cherrie Donis APRN.POCKET CLOSER documented in this encounter [facility] 03-25-2023 History of Present illness Narrative [...] 2023 12:55 PM documented in this encounter [facility] 03-05-2023 History of Present illness Narrative This note was created using NoteWriter. Subjective Karyn Gonsales is a 73 year [...] Spreading and I am itching myself to " Denies fever or chills. Denies URI sx Denies malaise or fatigue Denies new lotions, soaps, or medicines Endorses last week she was outside working in the yard. Has air conditioning Endorses similar occurrence in the past with working out in the yard And it was just as bad as this The history is provided by the patient. No foreign language professor was used. Rash This is a new [...] Greater than a week Endorses working in [employer], similar occurrence in past Presents today related to " itching so bad" No red flags Hemodynamically stable - Oral Steriod tx -continue to finish the taper provided. - Anti itch therapy of Calomine lotion, Oatmeal baths, and Rx for Atarax recommended prn - discussed skin care of rash - follow up with PCP and or derm if symptoms persist or worsen. Amy Keita APRN.ANH documented in this encounter [facility] 03-02-2023 History of Present illness Narrative [...] ACETONIDE 0.1 % TOPICAL CREAM Cherrie Donis APRN.ANH documented in this encounter [facility] 02-25-2022 History of Present illness Narrative [...] Agrees to plan Declines avs Cherrie Donis APRN.ANH documented in this encounter [facility] 01-15-2022 Miscellaneous Notes Submitted recall letter for 1 YR OV*. Radha Wall Pt. Notified of results of mamm, f/u in 1 year. Pt. Voiced understanding. Juhi Elliott LPN Please inform pt. that her b/l dx mammogram looked good. OV in one year. Thank you. Chanda Ocasio APRN.ANH documented in this encounter [facility] 01-15-2022 History of Present illness Narrative [...] DATA: Not applicable SIGNED BY: Effie [employer] January 15, 2022 11:33 AM documented in this encounter [facility] 12-31-2021 Miscellaneous Notes Patient notified of [...] Mejias PA-C 12/30/2021 documented in this encounter [facility] 12-30-2021 History of Present illness Narrative 12/30/2021 Patient presents with: Dizziness: x2 days, upset stomach SUBJECTIVE: This is a 71 year old that is here today for Complaint(s) of dizziness/vertigo x 2 days. Started on Thursday, better yesterday, and then noticed again this morning and noticed when she turned her head in bed this morning. Describes the "whole room spun". + nausea, no vomiting. Slight HERNANDEZ per patient. Denies "worst HERNANDEZ of life" or abrupt onset. Denies vision changes, numbness/tingling, facial droop, slurred speech, weakness, paralysis. PMH DM, HTN, hyperlipidemia. Previous history of vertigo, but it's been a "long time" per patient. Denies ear pain. Right hear [...] this time, symptoms related to movement, + [place] hallpike - MECLIZINE 12.5 MG TABLET - CONSULT TO ENT - BASIC METABOLIC PNL The patient indicates understanding of these issues and agrees with the plan. Josselin Mejias PA-C 12/30/2021 documented in this encounter [facility] 12-10-2021 History of Present illness Narrative [...] nodes are negative. ER is 59% , IA is 89% , HER-2/selena by FISH is not amplified. Oncotype DX recurrence score 29 (19% rate of recurrence with tamoxifen alone). Completed TC. Completed radiation 02/10/12. Started arimidex after radiation. Went off of AI for approx. one year. B/l breast recon. in [place]. Recovered well. Pt. was seen by Dr. Cebul for abnormal mamm b/l in January. B/l [...] wants me to ask you to order it." Appetite:"Good. I've been watching. I need to get my HgbA1c down." Energy level:"Good." Denies fever or recent illness. 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 - Discussed with pt. that a "full body scan" is not indicated at this time. She [...] Chanda Ocasio APRN.ANH documented in this encounter [facility] 02-14-2012 Evaluation note Diagnosis Onset Date Resolution Cellulitis, abdominal wall acute February 13, 2012 10:00pm Preoperative evaluation to rule out surgical contraindication acute August 29, 2024 8:55am HTN (hypertension) chronic Decemb er 2023 8:55am Hyperlipidemia chronic August 022023 8:55am Lumbar radiculopathy chronic Dece mber 2023 8:55am Type 2 diabetes mellitus chronic August 29, 2024 8:55am Hyperlipidemia chronic December 05, 2024 8:39am Hypertension chronic December 05, 2 025 8:39am Lumbar radiculopathy chronic Apri l 2024 8:39am Type 2 diabetes mellitus chronic December 05, 2024 8:39am [facility] Work Phone: 1(244) 522-439306-16-2012 Evaluation note* Diagnosis Onset Date Resolution Status Admit Date Cellulitis, abdominal wall acute February 13, 2012 10:00pm Hyperlipidemia chronic December 05, 2024 8:39am Hypertension chronic December 05 025 8:39am Lumbar radiculopathy chronic Apri l 2024 8:39am Type 2 diabetes mellitus chronic December 05, 2024 8:39am [facility] Work Phone: 1(568) 177-867906-16-2012 Evaluation note* Diagnosis Onset Date Resolution Status Admit Date Cellulitis, abdominal wall acute February 13, 2012 10:00pm Hyperlipidemia chronic December 05, 2024 8:39am Hypertension chronic December 05 8:39am Lumbar radiculopathy chronic Apri 2024 8:39am Type 2 diabetes mellitus chronic December 05, 2024 8:39am Anemia chronic March 13 8:11am HTN (hypertension) chronic February 282024 8:11am Hyperlipidemia chronic March 13, 2025 8:11am Type 2 diabetes mellitus chronic March 13, 2025 8:11am [facility] Work Phone: 1(303) 757-267506-16-2012 Evaluation note* Diagnosis Onset Date Resolution Status Admit Date Cellulitis, abdominal wall acute February 13, 2012 10:00pm Anemia chronic March 13 8:11am HTN (hypertension) chronic February 282024 8:11am Hyperlipidemia chronic March 13, 2025 8:11am Type 2 diabetes mellitus chronic March 13, 2025 8:11am [facility] Work Phone: Discharge summary Author Carlton Gutierrez [facility] July 27, 2023 4:36am Note Date/Time July 27, 2023 4:09am [facility] Medical Records Department [address] [place] [address] Emergency Department Summary 07/27/23 MR#: [id number] Acct: [id number] Name: KARYN GONSALES Rep #:[id number] : 1950 73 From: Carlton Gutierrez MD PCP: Dr. Miranda Hester MD Status:D EP ER Location: ED HPI History of Present Illness Chief Complaint: Lower Extremity Injury Informant: patient Narrative Narrative: 2 weeks ago patient had microdiscectomy lumbar spine by Dr. Covington [facility]. She had sciatica down her left lower [...] to coming here but vomited them up. [facility] Medical History Abnormal mammogram of [...] your Primary Care Provider. Call [facility] ([phone]) or report to the closest Emergency Room. Call 911 if necessary. 07/27/23 0436 <Electronically signed by Carlton Gutierrez MD> Cosigner Signature (if applicable): CC: Dr. Miranda Hester MD; Dr. Darin Covington MD ~ Signed [facility] Work Phone: Discharge summary Author Edie [facility] Note Date/Time June 05, 2025 12 :35pm [facility] Medical Records Department [address] [place] [address] Emergency Department Summary 06/05/25 MR#: [id number] Acct: [id number] Name: KARYN GONSALES Rep #:[id number] : 1950 75 From: Edie Rasmussen PCP: Dr. Miranda Hester MD Status:R EG ER Location: ED HPI History of Present Illness Chief Complaint: Back Informant: patient Narrative Narrative: Patient is a 75-year-old female with history of 2 lumbar spinal surgeries (performed with Dr. Perales at the [facility]), diabetes mellitus, hypertension, prior bariatric surgery, presenting for increased pain of her leftthigh. Patient states for the past week she has had increased pain. She deniesany trauma or injury. She denies any falls. States she does not have any numbness. States the pain starts at her proximal thigh and goes to her knee. She cannot sleep because of the pain. She has had dry heaves and nausea becauseof the pain. She has an appointment to see Dr. Remy on the of this week and will call to see if she get in sooner. She states she did not like to do because of the pain so she came for further evaluation. She notes that if she presses on her thigh she will feel the pain radiate up. Denies any overlying skin changes or rash. Denies any fever or chills. [place] any bowel or bladder incontinence. States this feels different than her prior lumbar radiculopathy is requiring surgery because it does not radiate down further and she does not have any numbness. [facility] Medical History Lumbar radiculopathy Overweight [...] HTN (hypertension) Diabetes High cholesterol Home Medications ?Medication ?Instructions ?Recorded ?Last Taken ?Type cyanocobalamin (vitamin B-12) See Rx Instructions .Rou te 09/02/24 Unknown Rx 1,000 mcg/mL injection solution .COMPLEX #10 mL hydrochlorothiazide 12.5 mg capsule See Rx Instruction s .Route 09/02/24 Unknown Rx .COMPLEX #90 caps blood sugar diagnostic (Accu-Chek #200 ea 10/25/24 Unk nown Rx Guide test strips) blood sugar diagnostic (Blood #100 ea 10/25/24 Unknown Rx Glucose Test strips) blood-glucose meter (Blood Glucose #1 ea 10/25/24 Unkn own Rx Monitoring kit) lancets 17 gauge (Acti-Sid #300 ea 10/25/24 Unknown Rx Lancets) ferrous sulfate 325 mg (65 mg 325 mg PO Q OTHER DAY #9 0 tabs 12/08/24 Unknown Rx iron) tablet cholecalciferol (vitamin D3) 1,250 See Rx Instructions .Route 03/20/25 Unknown Rx mcg (50,000 unit) capsule .COMPLEX #12 caps glimepiride 2 mg tablet 2 mg PO QAM #90 tabs 5 Unknown Rx metformin 1,000 mg tablet 1,000 mg PO DAILY #90 tabs 0 03/20/25 Unknown Rx ramipril 5 mg capsule 5 mg PO DAILY #90 CAPSULES 0 03/20/25 Unknown Rx rosuvastatin 10 mg tablet 10 mg PO DAILY #90 tabs 03/01 09/24 Unknown Rx potassium chloride 10 mEq See Rx Instructions .Route 0 03/21/25 Unknown Rx tablet,extended release .COMPLEX #90 tabs hydrocodone-acetaminophen 5-325mg 1 tab PO Q6H PRN PRN Pain 3 days 06/05/25 Unknown Rx 5mg-325mg #12 TABLETS ondansetron 4 mg disintegrating 4 mg PO Q8H PRN PRN Na usea #10 tabs 06/05/25 Unknown Rx tablet Allergy/AdvReac Type Severity Reaction Status Date / Time prochlorperazine (From Allergy Other Verified 06/05/25 05:26 Compazine) NSAIDS (Non-Steroidal AdvReac Upset Verified 06/05/25 05:26 Anti-Inflamma Stomach Family History Mother Cancer Pancreatic cancer Diabetes Depression Sister Cancer Lung cancer Father Colon cancer Heart disease Myocardial infarction Hypertension CVA (cerebral vascular accident) Sister Cancer Kidney cancer Thyroid disorder Other Anxiety Surgical History S/P lumbar fusion History of back surgery History of revision of total knee arthroplasty History Panniculectomy History of left cataract surgery History of partial mastectomy of left breast History of breast reconstruction history of stomach surgery History of cholecystectomy H/O tubal ligation History of gastric bypass Social History Smoking Status: Never smoker second hand exposure: No alcohol intake: never what type of physical activity do you participate in: none ROS ROS ED Constitutional Constitutional ED: Denies chills or fever(s) Gastrointestinal Gastrointestinal: Reports nausea and vomiting; Denies abdominal pain Genitourinary Genitourinary ED: Denies dysuria or hematuria Musculoskeletal Musculoskeletal: Reports myalgias and other Details: left low back pain, left thigh pain Integumentary Denies rash Neurologic Neurologic: Denies paresthesias or weakness Hematologic/Lymphatic Hematologic/Lymphatic: Denies easy bleeding or easy bruising EXAM Physical Exam Const Vital Signs: 06/05/25 05:27 06/05/25 07:26 Temperature 97.6 F L Temperature Source Oral Pulse Rate 78 72 Respiratory Rate 16 16 Blood Pressure 148/90 H 117/68 Blood Pressure Mean 109 84 Pulse Ox 100 97 Oxygen Delivery Method Room Air Positive well nourished and well developed General Appearance ED: well developed and NAD HEENT Reports moist mucous membranes Neck supple Resp normal respiratory effort Cardio regular rate and regular rhythm GI normal to inspection, nondistended, normoactive bowel sounds, soft to palpation and non-tender Back/Spine Back/Spine Narrative: Midline lower lumbar surgical scar that is well-healed. No midline tenderness. Mild tenderness palpation of the left lower lumbar back. Negative straight leg test bilaterally. No overlying skin changes appreciated. Extremity normal to inspection Extremity Narrative: Tenderness palpation of the left anterior thigh. Compartments are soft. No pedal edema appreciated. No pain with range of motion of the left hip. No painwith range of motion of the left knee. General Extremety ED: Negative for edema General Extremity: Negative for edema Neuro oriented x3 and no sensory deficits noted Sensorium / Orientation: alert Motor Exam: strength 5/5 throughout Psych mental status grossly normal Skin no rashes or lesions noted MDM MDM MDM Narrative Medical decision making narrative: Patient evaluated for increased pain of her left thigh. Differential includes myositis, nerve impingement, muscle spasm herniated disc. She denies any traumais not any bony tenderness to low suspicion for fracture. She has good distal pulses a low suspicion for an acute vascular abnormality causing her pain. Patient is given IV morphine and Zofran for symptom control. Will check basic labs including BMP, magnesium and CPK to ensure there is not a metabolic cause to her pain. This is negative anticipate patient be discharged home with prescription for pain medication as well as nausea medication and she will follow-up outpatient with her spinal surgeon. She has had pain for only 1 week,no trauma and no midline tenderness I do not think she requires any emergent imaging at this time. She does not have any red flag symptoms for cauda equina syndrome. Patient given morphine. Has improvement with this. CK and potassium normal. She does have a bicarb of 19 with anion gap of 16 however glucose is 108. She states she has not drink anything all night and is counseled that she needs to follow-up with her primary care doctor for this and make sure she is pushing fluids at home. She verbalizes understanding of this. Lower suspicion for DKA,euglycemic DKA at this time. Patient is given dose of [place] will be discharged home with a prescription for this as well as Zofran. Given return precautions. Encouraged to follow-up withher data analytics specialist. Discharged home in stable and improved condition. Lab Data Labs: Laboratory Results - last 24 hr 06/05/25 06:30 Sodium 137 Potassium 4.3 Chloride 102 Carbon Dioxide 19.0 L Anion Gap 16 H BUN 23 H Creatinine 0.81 Est GFR (MDRD) Non-Af 75 BUN/Creatinine Ratio 28.9 H Glucose 108 H Calcium 9.3 Magnesium 2.2 Total Creatine Kinase 81 Discharge Plan Triage Chief Complaint: Back ED Provider: Edie Treviño Dx/Rx/DC Orders Clinical Impression: Acute pain of left thigh, Left lumbar radiculopathy, History of back surgery Instructions: Understanding Lumbar Radiculopathy, ED Back Pain (Acute or Chronic) Prescriptions: New hydrocodone-acetaminophen 5-325 mg tablet 1 tab PO Q6H PRN PRN (Reason: Pain) 3 Days Qty: 12 0RF ondansetron 4 mg tablet,disintegrating 4 mg PO Q8H PRN PRN (Reason: Nausea) Qty: 10 0RF No Action cyanocobalamin (vitamin B-12) 1,000 mcg/mL solution See Rx Instructions .ROUTE .COMPLEX Qty: 10 6RF Dose Instruction: INJECT 1 ML (CC) INTRAMUSCULARLY EVERY TWO WEEKS FOR MALABSORPTION Rx Instructions: INJECT 1 ML (CC) INTRAMUSCULARLY EVERY TWO WEEKS FOR MALABSORPTION hydrochlorothiazide 12.5 mg capsule See Rx Instructions .ROUTE .COMPLEX Qty: 90 1RF Dose Instruction: TAKE 1 CAPSULE BY MOUTH ONCE DAILY FOR BLOOD PRESSURE Rx Instructions: TAKE 1 CAPSULE BY MOUTH ONCE DAILY FOR BLOOD PRESSURE (DME) Accu-Chek Guide test strips Strip See Rx Instructions .ROUTE .MEDSUPPLY Qty: 200 3RF Rx Instructions: check blood glucose 3x daily as directed (DME) blood-glucose meter [Blood Glucose Monitoring] Kit See Rx Instructions .ROUTE .MEDSUPPLY Qty: 1 0RF Rx Instructions: Check daily (DME) Acti-Sid Lancets 17 gauge misc See Rx Instructions .ROUTE .MEDSUPPLY Qty: 300 2RF Rx Instructions: Check 3x daily (DME) Blood Glucose Test Strip See Rx Instructions .ROUTE .MEDSUPPLY Qty: 100 3RF Rx Instructions: Check daily ferrous sulfate 325 mg (65 mg iron) tablet 325 mg PO Q OTHER DAY Qty: 90 1RF glimepiride 2 mg tablet 2 mg PO QAM Qty: 90 1RF Rx Instructions: administer with breakfast cholecalciferol (vitamin D3) 1,250 mcg (50,000 unit) capsule See Rx Instructions .ROUTE .COMPLEX Qty: 12 0RF Dose Instruction: Take 1 capsule by mouth once a week Rx Instructions: Take 1 capsule by mouth once a week metformin 1,000 mg tablet 1,000 mg PO DAILY Qty: 90 1RF ramipril 5 mg capsule 5 mg PO DAILY Qty: 90 1RF rosuvastatin 10 mg tablet 10 mg PO DAILY Qty: 90 1RF potassium chloride 10 mEq tablet extended release See Rx Instructions .ROUTE .COMPLEX Qty: 90 3RF Dose Instruction: Take 1 tablet by mouth once daily Rx Instructions: Take 1 tablet by mouth once daily Primary Care Provider: Miranda Hester Referrals: Miranda Hester MD [Primary Care Provider, Internal Medicine] Activity Restrictions/Additional Instructions: Please follow-up with Dr. Perales as we discussed. I suspect you have some newlumbar nerve irritation possibly from a slipped disc versus muscle spasm that iscausing the pain in your left thigh. Your blood work did show some mild signs of dehydration including mild elevationof your anion gap and your bicarb is mildly low. Please make sure you are drinking plenty of fluids at home and follow-up with your family doctor for recheck of this to ensure that it is normalized. I do recommend taking a stool softener or MiraLAX with the pain medication to prevent opioid-induced constipation. Print Language: Belgian Disposition Disposition: Home, Self Care What to do if you have Problems For any increased pain, shortness of breath, bleeding, nausea or vomiting, chestpain, or any unexpected problems, contact your Primary Care Provider. Call [facility] ([phone]) or report to the closest Emergency Room. Call 911 if necessary. 06/05/25 0752 <Electronically signed by Ediekathleen Treviño > Cosigner Signature (if applicable): CC: Dr. Miranda Hester MD ~ Signed ADDENDUM by Dr. Dariel Kohler MD on 06/05/25 at 1235 EKG that was obtained with symptoms was normal. Rate of 72. IA interval 250 ms. History 78 ms. QT duration [address] [place] [address] normal. 1st and 2nd troponin were normal. Patient was informed of results. She was discharged to home. 06/05/25 1235<Electronically signed by Dariel Kohler MD> Cosigner Signature (if applicable): cc: Dr. Miranda Hester MD ~* Signed [facility] Work Phone: Evaluation note* Diagnosis Invasive ductal carcinoma of left breast in female (HCC)- Primary Breast pain, left Mastodynia [facility] Diagnosis Vertigo- Primary Dizziness and giddiness [facility]* Diagnosis Invasive ductal carcinoma of left breast in female (HCC) Breast pain, left Mastodynia [facility] Diagnosis Onset Date Resolution Status Cellulitis, abdominal wall a cute Breast cancer chronic Hypertension chronic Left shoulder pain chronic Type 2 diabetes mellitus chr onic Postsurgical malabsorption a cute Hypertension chronic Left shoulder pain chronic Type 2 diabetes mellitus chr [facility] Work Phone: Evaluation note* Diagnosis Bacterial sinusitis- Primary Unspecified sinusitis (chronic) [facility] Diagnosis Onset Date Resolution Status Cellulitis, abdominal wall a cute Anemia chronic HTN (hypertension) chronic Osteoarthritis chronic Type 2 diabetes mellitus chr onic 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 [facility] Work Phone: Evaluation note* Diagnosis Rhus dermatitis- Primary Contact dermatitis and other eczema due to plants (except food) [facility] Diagnosis Dermatitis- Primary Contact dermatitis and other eczema, due to unspecified cause [facility] Diagnosis Onset Date Resolution Status Cellulitis, abdominal wall a cute Postsurgical malabsorption a cute Bariatric surgery status chr onic Postsurgical malabsorption a cute Bariatric surgery status [facility] Work Phone: Evaluation note* Diagnosis Onset Date Resolution Status Cellulitis, abdominal wall a cute Postsurgical malabsorption a cute Bariatric surgery status chr on Dermatitis acute Rash acute Type 2 diabetes mellitus chr [facility] Preoperative evaluation to r ule out surgical contraindication acute HTN (hypertension) chronic Type 2 diabetes mellitus [facility] Work Phone: Evaluation note* Diagnosis Onset Date Resolution Status Cellulitis, abdominal wall a cute Dermatitis acute Rash acute Type 2 diabetes mellitus chr [facility] Preoperative evaluation to r ule out surgical contraindication acute HTN (hypertension) chronic Type 2 diabetes mellitus [facility] Preoperative evaluation to r ule out surgical contraindication acute HTN (hypertension) chronic Type 2 diabetes mellitus [facility] Work Phone: Evaluation note* Diagnosis Encounter for screening mammogram for malignant neoplasm of breast Other screening mammogram [facility] Diagnosis Onset Date Resolution Status Cellulitis, abdominal wall a cute Preoperative evaluation to r ule out surgical contraindication acute HTN (hypertension) chronic Type 2 diabetes mellitus [facility] Work Phone: Evaluation note* Diagnosis Onset Date Resolution Status Cellulitis, abdominal wall a cute Preoperative evaluation to r ule out surgical contraindication acute HTN (hypertension) chronic Type 2 diabetes mellitus [facility] care maintenance acut e History of back surgery acut e HTN (hypertension) chronic Osteopenia chronic Type 2 diabetes mellitus [facility] Work Phone: Evaluation note* Diagnosis Onset Date Resolution Status Cellulitis, abdominal wall a cute Health care maintenance acut e History of back surgery acut e HTN (hypertension) chronic Osteopenia chronic Type 2 diabetes mellitus [facility] Work Phone: Evaluation note* Diagnosis Bacterial sinusitis- Primary Unspecified sinusitis (chronic) [facility] Diagnosis Invasive ductal carcinoma of left breast in female (HCC)- Primary Encounter for screening mammogram for high-risk patient [facility]* Diagnosis Invasive ductal carcinoma of left breast in female (HCC) Encounter for screening mammogram for high-risk [facility] In[facility]al [facility] of left breast in female (HCC)- Primary Encounter for screening mammogram for high-risk patient documented in this encounter [facility] note* Diagnosis Encounter for follow-up surveillance of breast cancer- Primary Unspecified follow-up examination documented in this encounter [facility] note* Diagnosis Sensorineural hearing loss, bilateral- Primary Otalgia, right documented in this encounter [facility] note* Diagnosis Sensorineural hearing loss, bilateral- Primary documented in this encounter [facility] Discharge instructionsAdditional Instructions Please follow-up with Dr. Perales as we discussed. I suspect you have some new lumbar nerve irritation possibly from a slipped disc versus muscle spasm that is causing the pain in your left thigh. Your blood work did show some mild signs of dehydration including mild elevation of your anion gap and your bicarb is mildly low. Please make sure you are drinking plenty of fluids at home and follow-up with your family doctor for recheck of this to ensure that it is normalized. I do recommend taking a stool softener or MiraLAX with the pain medication to prevent opioid-induced constipation.[facility] Work Phone: Reason for referral (narrative)* Diagnostic Procedure Only (Routine) - Authorized Specialty Diagnoses / Procedures Referred By Alberto mario Referred To Contact [facility] Diagnoses Invasive ductal carcinoma of left breast in female (HCC) Breast pain, left Procedures US BREAST LTD LT BREAST UNI REAL TIME WITH IMAGE LIMITED Chanda Ocasio APRN.CNP [address] [place] [address] [facility] [address] [place] [address] Referral ID Status Reason Start Date Expiration Date Visits Requested Visits Authorized [id number] Authorized Auto-Generat ed Referral 12/10/2021 01/09/2023 1 1 * Diagnostic Procedure Only (Routine) - Authorized Specialty Diagnoses / Procedures Referred By Alberto mario Referred To Contact [facility] Diagnoses Invasive ductal carcinoma of left breast in female (HCC) Breast pain, left Procedures [facility]ENCER DIAGNOSTIC BILAT DIAGNOSTIC MAMMOGRAPHY COMPUTER-AIDED DETCJ BI Chanda Ocasio APRN.POCKET CLOSER [address] [place] [address] [facility] [address] [place] [address] Referral ID Status Reason Start Date Expiration Date Visits Requested Visits Authorized [id number] Authorized Auto-Generat ed Referral 12/10/2021 01/09/2023 1 1 [place] [facility] for [facility] (narrative)* Diagnostic Procedure Only (Routine) - Closed Specialty Diagnoses / Procedures Referred By Alberto t Referred To Contact [facility] Diagnoses Invasive ductal carcinoma of left breast in female (HCC) Breast pain, left Procedures US BREAST LTD LT US BREAST UNI REAL TIME WITH IMAGE LIMITED Chanda Ocasio APRN.POCKET CLOSER [address] [place] [address] [facility] [address] [place] [address] Referral ID Status Reason Start Date Expiration Date V isits Requested Visits Authorized [id number] Closed Auto-Generate d Referral 12/10/2021 01/09/2023 1 1 [facility] for referral (narrative)* Diagnostic Procedure Only (Routine) - Closed Specialty Diagnoses / Procedures Referred By Alberto mario Referred To Contact [facility] Diagnoses Encounter for screening mammogram for malignant neoplasm of breast Procedures SPENCER SCREENING W SHANEL SCREENING DIGITAL BREAST TOMOSYNTHESIS BI SCREENING MAMMOGRAPHY BI 2-VIEW BREAST INC CAD Cabrera Schultz DO [address] [facility] [place] [place] [address] [facility] [address] [place] [address] Referral ID Status Reason Start Date Expiration Date V isits Requested Visits Authorized [id number] Closed Auto-Generate d Referral 03/24/2023 04/21/2024 1 1 [facility] for referral (narrative)* Diagnostic Procedure Only (Routine) - Authorized Specialty Diagnoses / Procedures Referred By Alberto t Referred To Contact [facility] Diagnoses Invasive ductal carcinoma of left breast in female (HCC) Encounter for screening mammogram for high-risk patient Procedures SPENCER SCREENING W SHAENL SCREENING DIGITAL BREAST TOMOSYNTHESIS BI SCREENING MAMMOGRAPHY BI 2-VIEW BREAST INC CAD Chanda Ocasio APRN.POCKET CLOSER [address] [place] [address] [facility] [address] [place] [address] Referral ID Status Reason Start Date Expiration Date Visits Requested Visits Authorized [id number] Authorized Auto-Generat ed Referral 09/12/2024 10/12/2025 1 1 [facility] for referral (narrative)* Diagnostic Procedure Only (Routine) - Authorized Specialty Diagnoses / Procedures Referred By Alberto t Referred To Contact [facility] Diagnoses Invasive ductal carcinoma of left breast in female (HCC) Encounter for screening mammogram for high-risk patient Procedures SPENCER SCREENING W SHANEL SCREENING DIGITAL BREAST TOMOSYNTHESIS BI SCREENING MAMMOGRAPHY BI 2-VIEW BREAST INC CAD Chanda Ocasio APRN.POCKET CLOSER [address] [place] [address] [facility] [address] [place] [phone] Referral ID Status Reason Start Date Expiration Date Visits Requested Visits Authorized [id number] Authorized Auto-Generat ed Referral 09/14/2025 10/14/2025 1 1 [facility] for referral (narrative)No reason for referral information availableWGood [facility] Work Phone: Reason for visit Narrative* Diagnostic Procedure Only (Routine) - Closed Specialty Diagnoses / Procedures Referred By Alberto t Referred To Contact [facility] Diagnoses Encounter for screening mammogram for malignant neoplasm of breast Procedures SPENCER SCREENING W SHANEL SCREENING DIGITAL BREAST TOMOSYNTHESIS BI SCREENING MAMMOGRAPHY BI 2-VIEW BREAST INC CAD Cabrera Schultz, DO [address] [place] [address] [facility] [address] [place] [address] Referral ID Status Reason Start Date Expiration Date V isits Requested Visits Authorized [id number] Closed Auto-Generate d Referral 03/24/2023 04/21/2024 1 [facility] Procedure Only (Routine) - Closed Specialty Diagnoses / Procedures Referred By Alberto t Referred To Contact [facility] Diagnoses Invasive ductal carcinoma of left breast in female (HCC) Encounter for screening mammogram for high-risk patient Procedures SPENCER SCREENING W SHANEL SCREENING DIGITAL BREAST TOMOSYNTHESIS BI SCREENING MAMMOGRAPHY BI 2-VIEW BREAST INC Chanda Menon, REFINERY OPERATOR [employer].POCKET CLOSER [address] [place] [address] [facility] [address] [place] [address] Referral ID Status Reason Start Date Expiration Date V isits Requested Visits Authorized [id number] Closed Auto-Generate d Referral 09/12/2024 10/12/2025 1 1 [facility] Reason for Referral Specialty Diagnoses / Procedures Referred By Alberto mario Referred To Contact Ent - Otolaryngology Diagnoses Vertigo Procedures CONSULT TO ENT OFFICE/OUTPATIENT NEW HIGH MDM 60-74 MINUTES Josselin Mejias PA-C [address] [place] [address] Referral ID Status Reason Start Date Expiration Date Visits Requested Visits Authorized [id number] Authorized PCP Requested Referral 12/30/2021 12/30/2022 1 [...] wall February 12 10:00pm Preoperative evaluation to josh valdez out surgical contraindication August 29, 2024 8:55am [...] 2 diabetes mellitus March 13, 2025 8:11am Chief Complaint Admit Date 3 m fu March 13, 2025 8:11 am back pain June 05, 2025 5: 26am Reason for Visit Admit Date Cellulitis, abdominal wall February 12 10:00pm Anemia March 13, 2025 8:11 am HTN [...] Sister Full Sister Cancer Mother Mother Cancer Family Member Condition Full Sister Obesity Mother Obesity Father Diabetes Mother Diabetes Father Heart disease Father Stroke Father Cancer Aunt Cancer Full Sister Full Sister Cancer Mother Mother Cancer Advance Directives No Advanced Directives Records Found Advance Directive Response Recorded Date/ Time Advance Directives No April 09, 2016 8:29am Living Will No March 28, 2020 5:04pm Power of Remote Encoding Center Manager No March 28 0 5:04pm Advance Directive Response Recorded Date/ Time Advance Directives No April 09, 2016 7:29am Living Will No March 28, 2020 4:04pm Power of Remote Encoding Center Manager No Julee 29th, 202 0 4:04pm Advance Directive Response Recorded Date/ Time Advance Directives No April 09, 2016 7:29am Living Will No July 27, 023 3:49am Power of Remote Encoding Center Manager No July 27, 2023 3:49am Advance Directive Response Recorded Date/ Time Advance Directives No April 09, 2016 8:29am Living Will No July 27, 023 4:49am Power of Remote Encoding Center Manager No July 27, 2023 4:49am Advance Directive Response Recorded Date/ Time Living Will No July 27 023 4:49am Do you have a Healthcare Power of Remote Encoding Center Manager? No July 27, 2023 4:49am Advance Directives No April 09, 2016 8:29am Advance Directive Response Recorded Date/ Time Advance Directives No April 09, 2016 8:29am Advance Directive Response Recorded Date/ Time Do you have a Healthcare Power of Remote Encoding Center Manager? Yes June 05, 2025 5:29am Name of Medical Power of Remote Encoding Center Manager --Wai June 05, 2025 5:29am Advance Directives No April 09, 2016 8:29am Summary Purpose Additional Source Comments Source Comments (unrecognize d section and content) In the event this informatio n is protected by the Federal Confidentiality of Alcohol and Drug Abuse Patient Records regulations: The Federal rules restrict any use of the information to criminally investigate or prosecute any alcohol or drug abuse patient.[facility] the event this information is protected by the Federal Confidentiality of Alcohol and Drug Abuse Patient Records regulations: The Federal rules restrict any use of the information to criminally investigate or prosecute any alcohol or drug abuse patient.[facility] the event this information is protected by the Federal Confidentiality of Alcohol and Drug Abuse Patient Records regulations: The Federal rules restrict any use of the information to criminally investigate or prosecute any alcohol or drug abuse patient.[facility] the event this information is protected by the Federal Confidentiality of Alcohol and Drug Abuse Patient Records regulations: The Federal rules restrict any use of the information to criminally investigate or prosecute any alcohol or drug abuse patient.[facility] the event this information is protected by the Federal Confidentiality of Alcohol and Drug Abuse Patient Records regulations: The Federal rules restrict any use of the information to criminally investigate or prosecute any alcohol or drug abuse patient.[facility] HospitalIn the event this information is protected by the Federal Confidentiality of Alcohol and Drug Abuse Patient Records regulations: The Federal rules restrict any use of the information to criminally investigate or prosecute any alcohol or drug abuse patient.[facility] the event this information is protected by the Federal Confidentiality of Alcohol and Drug Abuse Patient Records regulations: The Federal rules restrict any use of the information to criminally investigate or prosecute any alcohol or drug abuse patient.[facility] the event this information is protected by the Federal Confidentiality of Alcohol and Drug Abuse Patient Records regulations: The Federal rules restrict any use of the information to criminally investigate or prosecute any alcohol or drug abuse patient.[facility] the event this information is protected by the Federal Confidentiality of Alcohol and Drug Abuse Patient Records regulations: The Federal rules restrict any use of the information to criminally investigate or prosecute any alcohol or drug abuse patient.[facility] the event this information is protected by the Federal Confidentiality of Alcohol and Drug Abuse Patient Records regulations: The Federal rules restrict any use of the information to criminally investigate or prosecute any alcohol or drug abuse patient.[facility] the event this information is protected by the Federal Confidentiality of Alcohol and Drug Abuse Patient Records regulations: The Federal rules restrict any use of the information to criminally investigate or prosecute any alcohol or drug abuse patient.[facility] HospitalIn the event this information is protected by the Federal Confidentiality of Alcohol and Drug Abuse Patient Records regulations: The Federal rules restrict any use of the information to criminally investigate or prosecute any alcohol or drug abuse patient.[facility]In the event this information is protected by the Federal Confidentiality of Alcohol and Drug Abuse Patient Records regulations: The Federal rules restrict any use of the information to criminally investigate or prosecute any alcohol or drug abuse patient.[facility]In the event this information is protected by the Federal Confidentiality of Alcohol and Drug Abuse Patient Records regulations: The Federal rules restrict any use of the information to criminally investigate or prosecute any alcohol or drug abuse patient.[facility] the event this information is protected by the Federal Confidentiality of Alcohol and Drug Abuse Patient Records regulations: The Federal rules restrict any use of the information to criminally investigate or prosecute any alcohol or drug abuse patient.[facility] the event this information is protected by the Federal Confidentiality of Alcohol and Drug Abuse Patient Records regulations: The Federal rules restrict any use of the information to criminally investigate or prosecute any alcohol or drug abuse patient.[facility] Reason for Visit (unrecogniz ed section [...] UNI REAL TIME WITH IMAGE LIMITED Chanda Ocasio, JOHN.POCKET CLOSER [address] [place] [address] [facility] [address] [place] [address] Referral ID Status Reason Start Date Expiration Date V isits Requested Visits Authorized [id number] Closed Auto-Generate d Referral 12/10/2021 01/09/2023 1 [...] Care Teams (unrecognized sec tion and content) Shuttle Threader Relationship Specialty Start Date End Date Miranda Hester MD PCP - General Internal Medicine 01/05/18 Shuttle Threader Relationship Specialty Start Date End Date Miranda Hester MD PCP - General Internal Medicine 01/05/18 Shuttle Threader Relationship Specialty Start Date End Date Miranda Hester MD PCP - General Internal Medicine 01/05/18 Shuttle Threader Relationship Specialty Start Date End Date Miranda Hester MD PCP - General Internal Medicine 01/05/18 Shuttle Threader Relationship Specialty Start Date End Date Miranda Hester MD PCP - General Internal Medicine 01/05/18 Shuttle Threader Relationship Specialty Start Date End Date Miranda Hester MD PCP - General Internal Medicine 01/05/18 Team Status: Active Member Role Status Dates Dr. Miranda Hester MD Family Provider Active Dr. Miranda Hester MD Primary Care Provider Active Team Status: Inactive Member Role Status Dates Dr. Miranda Hester MD Primary Care Jess petty, Attending Provider, Referring Provider Active Team Status: Active Member Role Status Dates Dr. Harriett Draper MD Primary Care Provider, Family [facility] Active Team Status: Inactive Member Role Status Dates Dr. Miranda Hester MD Primary Care Provider Active Dr. Chito Lockett MD Attending Provider, Referring Provider Active Team Status: Active Member Role Status Dates Dr. Miranda Hester MD Primary Care P jovanny, Attending Provider, Referring Provider Active Shuttle Threader Relationship Specialty Start Date End Date Miranda Hester MD (Fax) PCP - General Internal Medicine 01/05/18 Shuttle Threader Relationship Specialty Start Date End Date Miranda Hester MD (Fax) PCP - General Internal Medicine 01/05/18 Team Status: Inactive Member Role Status Dates Dr. Miranda Hester MD Primary Care Provider, Refer ring Provider Active Jonas Cano TABLET TECHNICIAN, TABLET TECHNICIAN-C Attending Provider Active Team Status: Inactive Member Role Status Dates Dr. Miranda Hester MD Primary Care Provider Active JESSICA BANDA Attending Provider, Referring Provider Ac tive Shuttle Threader Relationship Specialty Start Date End Date Miranda Hester MD (Fax) PCP - General Internal Medicine 01/05/18 Team [...] Primary Care Provider, Atten ding Provider Active Shuttle Threader Relationship Specialty Start Date End Date Miranda Hester MD (Fax) PCP - General Internal Medicine 01/05/18 Shuttle Threader Relationship Specialty Start Date End Date Miranda Hester MD (Fax) PCP - General Internal Medicine 01/05/18 Shuttle Threader Relationship Specialty Start Date End Date Miranda Hester MD (Fax) PCP - General Internal Medicine 01/05/18 Shuttle Threader Relationship Specialty Start Date End Date Miranda Hester MD PCP - General Internal Medicine 01/05/18 Shuttle Threader Relationship Specialty Start Date End Date Miranda Hester MD PCP - General Internal Medicine 01/05/18 Shuttle Threader Relationship Specialty Start Date End Date Miranda [...] March 14, 2025 End: March 14, 2025 Shuttle Threader Relationship Specialty Start Date End Date Miranda Hester MD [address] [facility] [place] [address] PCP - General Internal Medicine 03/27/25 Shuttle Threader Relationship Specialty Start Date End Date Miranda Hester MD [address] [facility] [place] [address] PCP - General Internal Medicine 03/27/25 Team Status: Active Member Role/Relationship Status Dates Dr. Miranda Hester MD Primary care physician Activ e Team Status: Active Member Role/Relationship Status Dates Dr. Harriett Draper MD Primary care physician Active Start: February 13, 2012 Team Status: Inactive Member Role/Relationship Status Dates Dr. Miranda Hester MD Primary care physician Activ e Start: March 13, 2025 End: March 13, 2025 Dr. Miranda Hester MD Attending physician Active Start: March 13, 2025 End: March 13, 2025 Dr. Miranda Hester MD Referring Provider Active Start: March 13, 2025 End: March 13, 2025 Team Status: Inactive Member Role/Relationship Status Dates Dr. Miranda Hester MD Primary care physician Activ e Start: March 14, 2025 End: March 14, 2025 Dr. Miranda Hester MD Attending physician Active Start: March 14, 2025 End: March 14, 2025 Dr. Miranda Hester MD Referring Provider Active Start: March 14, 2025 End: March 14, 2025 Team Status: Inactive Member Role/Relationship Status Dates Dr. Miranda Hester MD Primary care physician Activ e Start: June 05, 2025 End: June 05, 2025 Dr. Edie Treviño DO Emergency Depart ent Physician Active Start: June 05, 2025 End: June 05, 2025 Goals (unrecognized section and content) Goals may [...] documented in an alternate section No Information AvailableGoals may be documented in an alternate section No Information Available INFORMATION SOURCE (unrecogn ized section and content) DATE CREATED AUTHOR 09/15/2024 [facility] DATE CREATED AUTHOR AUTHOR'S ORGANBEVERLY ATION 05/11/2025 [facility] DATE CREATED AUTHOR AUTHOR'S ORGANIZ ATION 06/19/2025 [facility] FOR RECORDS PERTAINING TO PATIENTS WHO ARE [...] BE BASED ON THE PRIMARY CLINICAL RECORDS. [employer] provides no warranty or guarantee of the accuracy or completeness of information in this document.
[2025-06-23 07:24] LABS: Hematocrit 37.8 % (37-47); Hemoglobin 12.3 g/dL (12.0-15.0); Immature Granulocytes Count 0.040 X10^3/uL (0.0-0.0); Mean Corp Hgb Conc 32.5 g/dL (32-36); Mean Corpuscular Volume 82.9 fL (81-99); Mean Platelet Vol. 9.6 fl (6.2-12.0); NRBC Flagged by Analyzer 0 % (0-5); Platelet Count 298 K/mm3 (150-450); RBC Distribution Width CV 15.8 % (11.6-14.6); RBC Distribution Width SD 47.4 fl (35.1-43.9); Red Blood Count 4.56 M/mm3 (4.2-5.4); White Blood Count 10.6 K/mm3 (4.4-11.0)
[2025-06-23 07:49] LABS: Creatinine, Urine (random) 80.70 mg/dL (28.00-217.00); Microalbumin,Random Urine < 12.0 mg/L (<20 mg/L)
[2025-06-23 08:03] LABS: AST(SGOT) 21 U/L (<=31); Alanine Aminotransfer ALT/SGPT 17 U/L (<=34); Albumin, Serum 4.2 g/dL (3.4-4.8); Alkaline Phosphatase 63 U/L (35-104); Anion Gap 13 (5-15); BUN 20 mg/dL (4-19); BUN/Creat Ratio 24.3 RATIO (10-20); Calcium,Total 9.5 mg/dL (7.6-11.0); Carbon Dioxide 24.2 mmol/L (21.0-32.0); Chloride 99 mmol/L (98-108); Cholesterol 103 mg/dL (<=200); Globulin 3.2 g/dL (2.2-4.2); Glucose 122 mg/dL (70-99); Low Density Lipoprotein Calc. 36 mg/dL; Potassium 3.9 mmol/L (3.3-5.1); Triglycerides 112 mg/dL; Very Low Density Lipoprotein 22 mg/dL (5-40); Vitamin D,25 Hydroxy 73.2 ng/mL (30-100); cholesterol:hdl ratio screen 2.21
== END | disposition home or self-care (01) ==
LOC: LAB 06:11
PROVIDERS: PCP Internal Medicine; Referring Provider Internal Medicine; Visit Provider Internal Medicine
DX: D64.9 Anemia, unspecified (principal); E11.9 Type 2 diabetes mellitus without complications; E78.5 Hyperlipidemia, unspecified; E55.9 Vitamin D deficiency, unspecified; M85.80 Other specified disorders of bone density and structure, unspecified site
CPT/HCPCS: 36415; 80053; 80061; 82043; 82306; 82570; 85025